=== PATIENT | male | born 1945 | race Caucasian/White ===

== ENCOUNTER 2016-06-07 11:20 | Inpatient (IN) | payer MEDICARE ==
[~2016-06-07] VITALS: Ht 172.7 cm; Wt 126.6 kg
[~2016-06-07 11:20] MED LIST: *CPAPSUP; *GLUCOMETE; /ADVA50050; /MOXI40TA; ACCUPRIL40 PO; ADV500INH INH; ADVAIR200 INHALATION; ADVAIR500 INHALATION; ALBU17IN INH; ALBUTEROL INHALATION; ALDA25TA2; ALDA25TA2 PO; ALDACTON25 PO; ASPI325T PO; CALA180T; CENTTAB PO; CLOP75TA2 PO; COLA100C PO; COMBIN INH; CPAP; CYMB60CA3 PO; CYMBALTA PO; DIAB5TAB; DIABETA PO; DOXY150C PO; DULO1CAP2 PO; DUONSOL; DUONSOL INHALATION; ECOT325T5; F ACCUPRIL PO; FURO40TA2 PO; GLUC500T; GLUCOPH500 PO; GLUCOSE TEST; GLYB5TAB5 PO; HUMULIN 70/30; HUMULIN703 SC; HUMULINN SC; INSULADS SC; INSULANT SC; ISORDIL; ISORDIL PO; ISOS10TA2 PO; ISOS30TAB PO; LANCMIS; LASI40TA; LASI80TA; LASI80TA PO; LASIX40 PO; LIPI20TA; LIPITOR20 PO; LISI-538 PO; LISI-542 PO; LISI40TA; LISI40TAB OR; LISI5TAB PO; LOPR100T; LOPR100T PO; LOPRESS100 PO; LOPRESS50 PO; LOVA20TA2 PO; METF500T PO; METFORM500 PO; METO50TA2 PO; METO5TAB2; MICRONASE PO; NEXIUM40 PO; NITR0.4S; NITR4TASL SL; NITROSTAT4 SL; NOVOINJ SC; NOVOINJ3 SC; OMEGCAP8 PO; OMEP20CA3 PO; OSEL75CA PO; PEPCID20 PO; PRED10TA PO; PRED1TAB32 PO; PRED5TAB PO; PRIL20CA; PRIL20CA9 PO; PRILOSECOT PO; PROV90AE; PROVENTILI PO; RANE1000 PO; REGLAN10 PO; REGLAN5 PO; ROBITUSSIN; SENO8.6T5; SERT-138 PO; SPIR25TA2 PO; STOOL SOFTENER; THERGRAN; TYLE325T5 PO; TYLE650T30 PO; VERA120T2 PO; ZESTRIL PO; ZITH500T PO; [UNRECOGNIZED DRUG - CODE] PO; [UNRECOGNIZED DRUG - CODE] PO; [UNRECOGNIZED DRUG - CODE] PO; [UNRECOGNIZED DRUG - CODE] SUBQ; [UNRECOGNIZED DRUG - OTHER] SC; robitussin PO
--- NOTE | 2016-06-07 12:17 | REP ---
Chest one-view HISTORY: Cough Comparison: 05/31/2016 The lungs are clear. The cardiac silhouette is enlarged. The pulmonary vasculature is normal in appearance. Impression: Cardiomegaly. Signed by Sage Garrett MD 06/07/2016 12:08 P
[2016-06-07 12:31] LABS: BASO % 0.3 % (0.0-1.0); EOS % 0.4 % (0.0-3.0); LARGE UNSTAINED CELL # 0.2 K/mm3 (0.0-0.4); LARGE UNSTAINED CELL % 1.2 % (0.0-4.0); LYMPH # 0.5 K/mm3 (1.5-4.5); LYMPH % 4.3 % (24.0-44.0); MEAN CORPUSCULAR HGB CONC 35.2 g/dl (32.0-36.5); MEAN CORPUSCULAR VOLUME 88.1 fl (80.0-96.0); MONO # 0.7 K/mm3 (0.0-0.8); MONO % 5.7 % (0.0-5.0); NEUTROPHILS # 11.3 K/mm3 (1.8-7.7); NEUTROPHILS % 88.2 % (36.0-66.0); PLATELET COUNT, AUTOMATED 254 k/mm3 (150-450); RED CELL DISTRIBUTION WIDTH 13.2 % (11.5-14.5); WHITE BLOOD COUNT 12.8 K/mm3 (4.0-10.0)
[2016-06-07 12:53] LABS: ANION GAP 15 MEQ/L (8-16); BLOOD UREA NITROGEN 77 MG/DL (7-18); CALCIUM LEVEL 8.7 MG/DL (8.8-10.2); CARBON DIOXIDE LEVEL 28 MEQ/L (21-32); CHLORIDE LEVEL 84 MEQ/L (98-107); CREATININE FOR GFR 2.44 MG/DL (0.70-1.30); GLOMERULAR FILTRATION RATE 27.9 (>42); GLUCOSE, FASTING 202 MG/DL (83-110); POTASSIUM SERUM 3.2 MEQ/L (3.5-5.1); SODIUM LEVEL 127 MEQ/L (136-145)
[2016-06-07] MEDS ORDERED: ONDANSETRON 4MG/2ML VIAL (J2405) As Ordered ONE (13:38)
--- NOTE | 2016-06-07 14:32 | REP ---
CT STUDY OF THE CHEST WITHOUT CONTRAST: HISTORY: Chest pain. Comparison is made with chest CT study done with contrast on April 16, 2016. CT FINDINGS: Thoracic aorta is fairly heavily calcified as are the coronary arteries and the great vessel origins. No aneurysm or mural thickening is seen in the aorta. There is no evidence of pleural effusion. There is a small quantity of pericardial fluid. This is slightly larger than on the April 16, 2016 study. No hilar or mediastinal mass or adenopathy is observed. Lung window settings show an area of discoid atelectasis in the lingula and an area of minimal linear fibrosis in the right middle lobe. There are some interstitial changes in the upper lobes bilaterally mild in degree. There is a calcified granuloma in the left upper lobe. There are several tiny scattered granulomatous calcifications in the right lung. There is a small 3 mm area of pleural thickening at the major fissure adjacent to the posterior mediastinum on the right unchanged. No significant pulmonary nodule is appreciated. No tracheobronchial lesion is seen. There are degenerative changes diffusely in the thoracic spine. No bony destructive lesion is appreciated. IMPRESSION: Extensive vascular calcification. Linear fibrosis and granulomatous calcifications. Discoid atelectasis in the lingula. Some chronically increased interstitial markings. No other acute abnormality. Signed by Guevara Presley MD 06/07/2016 06:37 P
[2016-06-07] MEDS ORDERED: METO12TA PO (16:00)
[2016-06-07] MEDS ORDERED: ATOR1TAB18 PO (16:00)
[2016-06-07] MEDS ORDERED: INSULANT SC (16:00)
[2016-06-07] MEDS ORDERED: LISI-542 PO (16:00)
[2016-06-07] MEDS ORDERED: SPIR25TA2 PO (16:00)
[2016-06-07] MEDS ORDERED: METO25TA PO (16:00)
[2016-06-07] MEDS ORDERED: PRED10TA PO (16:00)
[2016-06-07] MEDS ORDERED: DOXY100T PO (16:04)
[2016-06-07] MEDS ORDERED: POTASSIUM CHLORIDE 10 MEQ SR TABLET PO ONE (16:15)
[2016-06-07] MEDS ORDERED: NITROGLYCERIN 0.4 MG SUBL TABLET SL PRN (16:15)
[2016-06-07] MEDS ORDERED: ALBUTEROL 90 MCG/ACT 8GM HFA INHALER INH PRN (16:15)
[2016-06-07] MEDS ORDERED: GLUCOSE 4 GM CHEW TABLET PO PRN (16:30)
[2016-06-07] MEDS ORDERED: DEXTROSE 50% 50 ML SYRINGE IV PRN (16:30)
[2016-06-07] MEDS ORDERED: GLUCAGON FOR INJ 1 MG VIAL (J1610) SC PRN (16:30)
[2016-06-07] MEDS ORDERED: NS 1,000 ML IV SCH (17:00)
--- NOTE | 2016-06-07 17:13 | HPE ---
DATE OF ADMISSION: 06/07/2016 PRIMARY CARE PHYSICIAN: Dr. Riley RECRUITMENT OFFICER: Dr. Crespo PAYROLL TECHNICIAN: Dr. Novak CHIEF COMPLAINT: Weakness, nausea. HISTORY OF PRESENT ILLNESS: The patient is a 71-year-old man with known fairly advanced chronic obstructive pulmonary disease (COPD) as well as diastolic congestive heart failure. Patient has been following with Dr. Crespo regarding his COPD fairly frequently over the last 1-2 months. The patient has had fairly consistent symptoms. When he was last seen on Sunday, Dr. Crespo at home at increased his continuous 2 liters of oxygen to 4 liters of oxygen. She also provided him with a steroid taper and doxycycline, which was his second course of treatment for COPD exacerbation in the last 1-2 months. The patient was also seen by Dr. Novak on Sunday, and reported at that time his Lasix was doubled from 40 twice a day to 80 twice a day. In addition, he was also started on metolazone 2.5 mg every other day. Shortly after starting these medications on Sunday, he noticed massive urine output, urinating 35 times a day. He tells me that he checks his daily weights, and he has lost approximately 20 pounds over the last 4-5 days. Also had associated nausea. No vomiting but weakness and poor oral intake, which prompted him to present to the emergency room today. The patient denies chest pain, lightheadedness, dizziness, worsening of any of his baseline symptoms otherwise. PAST MEDICAL HISTORY: 1. Diastolic congestive heart failure with the most recent echo we have on file from 2014. 2. Coronary artery disease. 3. Insulin-dependent diabetes. 4. Hypertension. 5. COPD. 6. Dyslipidemia. 7. Chronic kidney disease. 8. Obstructive sleep apnea. 9. Gastroesophageal reflux disease. 10. Hypertension. 11. Depression. PAST SURGICAL HISTORY: 1. Cardiac stents. 2. Cholecystectomy. SOCIAL HISTORY: The patient is a former smoker. Denies any alcohol or illicit drug use. He lives with his , and he is accompanied b his daughter. ALLERGIES: AUGMENTIN CEFTIN, LEVOFLOXACIN, PENICILLINS. HOME MEDICATIONS: - Lasix 80 mg by mouth twice a day - NovoLog Flexpen with meals - sliding scale - lisinopril 5 mg daily - metolazone 2.5 mg every 2 days - Ventolin HFA two puffs inhaled every 4 hours as needed for shortness of breath - aspirin 325 mg daily - atorvastatin 80 mg daily - Plavix 75 mg daily - doxycycline 100 mg by mouth twice a day - duloxetine 90 mg daily - Lantus 45 units twice a day - isosorbide dinitrate 60 mg twice a day - metoprolol tartrate 25 mg by mouth twice a day - Nitrostat 0.4 mg sublingually every 5 minutes as needed for chest pain - omeprazole 20 mg daily - prednisone taper as per Dr. Crespo - Ranexa 1000 mg twice a day - Advair Diskus 500/50 one puff inhaled twice a day - Aldactone 25 mg every other day REVIEW OF SYSTEMS: Negative other than in history of present illness (HPI). FAMILY HISTORY: Noncontributory. PHYSICAL EXAMINATION: Blood pressure 117/76, pulse 68, respiratory rate 20, temperature 96.8, oxygen saturation 97% on 2 liters nasal cannula. GENERAL: He is a elderly, obese man, sitting up in a stretcher. He does not appear to be in any acute distress. He is accompanied by his and his daughter. HEENT: Cranial nerves II-XII are grossly intact. He has some mildly dry mucous membranes. No elevation in central venous pressure. CARDIOVASCULAR: S1, S2, regular rate and rhythm. RESPIRATORY: Surprisingly clear without any significant wheezing. Prolonged expiratory phase. ABDOMEN: Grossly obese. EXTREMITIES: No clubbing, cyanosis, and edema whatsoever. He is awake, alert, oriented times three. LABORATORY STUDIES: WBC 12.8, hemoglobin 17.7, hematocrit 50.4, platelet count 254. Chemistry panel: Sodium 127, potassium 3.2, chloride 84, bicarbonate 28, BUN 77, creatinine 2.4. One set of cardiac enzymes is negative. Microbiology: Blood cultures have been drawn and are pending. IMAGING: The patient did have a CT scan of the chest, which revealed extensive vascular calcifications, linear fibrosis, and granulomatous calcifications. Discoid atelectasis in the lingula. Some chronically increased interstitial marking. No other acute abnormalities. ASSESSMENT AND PLAN: This is a 71-year-old man presenting with lethargy, poor oral intake, and significant diuresis. 1. Hyponatremia and acute kidney injury, likely secondary to over-diuresis. The patient was restarted on metolazone. His diuretic dose was doubled. He reports 20-pound weight loss over the last several days and massive diuresis in the same period. At this time we will hold all diuretics as well as his angiotensin-converting enzyme (LAMIN) inhibitor. We will continue his Aldactone and provide him with very gentle intravenous (IV) fluids of normal saline at 50 mL an hour. Repeat his blood work in the morning. I have spoken with Dr. Crespo, who had referred the patient to the emergency room (ER), made her aware of this plan, and she is in agreement after our discussion. The patient appears to have hypovolemic hyponatremia and also hyperchloridemia as well as hypokalemia, which we will replete orally. 2. Chronic obstructive pulmonary disease (COPD). The patient appears to be relatively close to his baseline, as he has been for the last 1-2 months[address] continue with Dr. Crespo' plan with his prednisone taper, doxycycline, and his home inhalers. 3. Coronary artery disease and congestive heart failure (CHF). The patient follows normally with Dr. Novak. For the time being, we are holding his diuretics. We are continuing Aldactone,. Lipitor, Plavix. Isosorbide mononitrate, metoprolol, Ranexa, Nitrostat, and gently hydrating him. He appears to be hypovolemic. Please note that this patient is on aspirin. 4. Obstructive sleep apnea. Continue with continuous positive airway pressure (CPAP). 5. Insulin-dependent diabetes. Place him on sliding-scale insulin. Continue with his home dosing of Lantus. Consistent-carbohydrate diet. 6. Hypertension. Continue with antihypertensives. As outlined above, we are holding his lisinopril and diuretics. 7. Deep vein thrombosis (DVT) prophylaxis. Patient will be on heparin. 8. Dyslipidemia. The patient will continue on his statin. We will trend his cardiac enzymes, monitoring him in the progressive care unit. DISPOSITION: The patient is admitted to the progressive care unit to Dr. Evans's service. Physical therapy evaluation will be placed for home safety. Will continue to monitor his acute kidney injury and hyponatremia, which I suspect will improve with cessation of his diuretics and gentle fluids.
[2016-06-07 20:15] VITALS: BP 116/67
--- NOTE | 2016-06-07 20:18 | EDDOCDS ---
Nurse's Notes [facility] Name: Artemio Alberto Age: 71 yrs Sex: Male : 1945 Arrival Date: 06/07/2016 Time: 11:20 Bed Admit Hold Private MD: Diagnosis: Shortness of breath;Hypo-osmolality and hyponatremia;Injury of kidney Presentation: 06/07 11:29 Presenting complaint: Patient states: "Well it's been going on since two weeks before mb9 [place]. I just haven't felt well. Today I couldn't get out of bed. I was weak and dizzy and nauseous.". pt also reports some chest discomfort at the time of the incident which has subsided. EMS gave 4 mg of IV zofran en route. Suicide/Homicide risk assessment- the patient denies having any suicidal and/or homicidal ideations and does not present with any other emotional, behavioral or mental health complaints. Status: Patient is not a management services technician or dependent. Transition of care: patient was not received from another setting of care. Care prior to arrival: See EMS report. 11:29 Acuity: LYNN Level 2 mb9 11:29 Method Of Arrival: Ambulance mb9 11:42 Adult Sepsis Screening: The patient does not have new or worsening altered mentation. mb9 Patient's respiratory rate is less than 22. Systolic blood pressure is greater than 100. Patient has a qSOFA score of 0- Negative Sepsis Screen. Triage Assessment: 11:38 General: Appears in no apparent distress, Behavior is appropriate for age, cooperative. mb9 General: pt reports a weight los of 21 lbs from SundayJune 02 to SundayJune 05. Pt reports that his PHCP instructed him to, "double up my lasix on Sunday". . Pain: Denies pain. Neurological: Level of Consciousness is awake, alert, Oriented to person, place, time, Speech is normal, Facial symmetry appears normal, Pupils are PERRLA. Cardiovascular: Heart tones S1 S2 present Rhythm is sinus rhythm. Respiratory: Airway is patent Respiratory effort is even, unlabored, Breath sounds are clear bilaterally. Breath sounds are diminished bilaterally. Historical: - Allergies: Augmentin; Ceftin; Levofloxacin; PENICILLINS; - Home Meds: 1. 2L NC 2. Ranexa 1,000 mg oral Tb12 1 tab 2 times per day 3. Plavix 75 mg Oral tab 1 tab once daily 4. Novolog sliding scale Sub-Q 4 times a day 5. DuoNeb 0.5 mg-3 mg(2.5 mg base)/3 mL Inhl nebu 6. Ventolin HFA 90 mcg/actuation Nebulizer HFAA 2 puffs as needed 7. atorvastatin 80 mg oral tab 1 tab once daily 8. duloxetine 90 mg Oral cpDR 1 cap once daily 9. lisinopril 5 mg Oral tab 1 tab once daily 10. Advair Diskus 500-50 mcg/dose Inhl dsdv 1 puff 2 times per day 11. Lantus 50 units Sub-Q twice a day 12. isosorbide dinitrate 30 mg Oral tab 2 tabs 2 times per day 13. Prilosec 20 mg Oral cpDR 1 cap 2 times per day 14. NitroQuick 0.4 mg SL subl 1 tab as needed 15. cpap 16. Lasix 40 mg Oral tab 2 tabs 2 times per day 17. spironolactone 25 mg Oral tab 1 tab once daily 18. metoprolol tartrate 25 mg Oral tab 1 tab 2 times per day 19. metolazone 2.5 mg oral tab 1 tab take one tab every other day 20. Prednisolone 10 mg Oral 3 tabs once daily taper dose 21. doxycycline hyclate 100 mg Oral tab 1 tab every 12 hours - PMHx: COPD; Depression; Diabetes - IDDM: uncontrolled; GERD; Hypercholesterolemia; Hypertension; - PSHx: Cardiac stents; Cholecystectomy; - Social history: Smoking status: Patient states former smoker of tobacco. No barriers to communication noted, The patient speaks fluent Albanian. - Family history: Not pertinent. - : The pt / caregiver states he / she is on anticoagulants: Plavix. Home medication list is obtained from patients' pharmacy. - Exposure Risk Screening:: None identified. Screenin:59 Screening information is obtained from the patient. Fall risk: No risks identified. dsf Assistance ADL's: requires no assistance with activities of daily living. Abuse/DV Screen: The patient / caregiver reports he/she is: not in a situation that causes fear, pain or injury. Nutritional screening: No deficits noted. Advance Directives: Currently, there is no health care proxy. home support is adequate. Assessment: 11:50 General: Appears in no apparent distress, Behavior is appropriate for age, cooperative. dsf Pain: Denies pain. Neurological: Level of Consciousness is awake, alert, Oriented to person, place, time. Cardiovascular: Capillary refill < 3 seconds Heart tones S1 S2 present Rhythm is sinus rhythm No ectopy. Respiratory: Airway is patent Respiratory effort is even, unlabored, Respiratory pattern is regular, symmetrical, Breath sounds are diminished in left posterior lower lobe and right posterior lower lobe Reports shortness of breath on exertion since after [place]. GI: Abdomen is obese, Bowel sounds present X 4 quads. Abd is soft and non tender X 4 quads. Reports nausea. Derm: Skin is clammy, Skin is normal, Skin temperature is cool. 12:50 Adult Sepsis Screening: The patient does not have new or worsening altered mentation. dsf Patient's respiratory rate is less than 22. Systolic blood pressure is greater than 100. Patient has a qSOFA score of 0- Negative Sepsis Screen. General: Appears in no apparent distress, comfortable, Behavior is appropriate for age, cooperative. Neurological: Level of Consciousness is awake, alert. Cardiovascular: Capillary refill < 3 seconds Rhythm is sinus rhythm No ectopy. Respiratory: Airway is patent Respiratory effort is even, unlabored, Respiratory pattern is regular, symmetrical. Derm: Skin is clammy, Skin is normal, Skin temperature is cool. 13:38 General: pt c/o nausea pt medicated with zofran. SR on monitor. airway patient, dsf respirations easy and unlabored. skin normal, clammy and cool. pt refuses a blanket at this time. will continue to monitor . 14:38 Adult Sepsis Screening: The patient does not have new or worsening altered mentation. dsf Patient's respiratory rate is less than 22. Systolic blood pressure is greater than 100. Patient has a qSOFA score of 0- Negative Sepsis Screen. General: Appears in no apparent distress, comfortable, Behavior is appropriate for age, cooperative. Pain: Denies pain. Neurological: Level of Consciousness is awake, alert, Oriented to person, place, time. Cardiovascular: Capillary refill < 3 seconds Heart tones S1 S2 present Rhythm is sinus rhythm No ectopy. Respiratory: Airway is patent Respiratory effort is even, unlabored, Respiratory pattern is regular, symmetrical, Breath sounds are diminished in left posterior lower lobe and right posterior lower lobe. GI: Abdomen is obese, Bowel sounds present X 4 quads. Abd is soft and non tender X 4 quads. Denies nausea. Derm: Skin is clammy, Skin is normal, Skin temperature is cool. 15:38 General: pt sitting up eating a lunch tray. family at bedside. SR on monitor. dsf Respirations easy and unlabored. Will continue to monitor. Pt denies nausea or pain at this time . 16:26 Adult Sepsis Screening: The patient does not have new or worsening altered mentation. dsf Patient's respiratory rate is less than 22. Systolic blood pressure is greater than 100. Patient has a qSOFA score of 0- Negative Sepsis Screen. General: Appears in no apparent distress, comfortable, Behavior is appropriate for age, cooperative. Pain: Denies pain. Neurological: Level of Consciousness is awake, alert. Cardiovascular: Capillary refill < 3 seconds Rhythm is sinus rhythm No ectopy. Respiratory: Airway is patent Respiratory effort is even, unlabored, Respiratory pattern is regular, symmetrical. GI: Abdomen is obese, Denies nausea. Derm: Skin is clammy, Skin is normal, Skin temperature is cool. 16:40 GI: Stools are reported to be loose. dsf 17:34 General: Appears in no apparent distress, comfortable, Behavior is appropriate for age, dsf cooperative. Pain: Denies pain. Neurological: Level of Consciousness is awake, alert, Oriented to person, place, time. Cardiovascular: Capillary refill < 3 seconds Rhythm is sinus rhythm No ectopy. Respiratory: Airway is patent Respiratory effort is even, unlabored, Respiratory pattern is regular, symmetrical. GI: Abdomen is obese. Derm: Skin is dry, Skin is normal, Skin temperature is cool. 18:34 General: Appears in no apparent distress. Neurological: Level of Consciousness is dsf awake, alert. Cardiovascular: No deficits noted. Respiratory: Airway is patent Respiratory effort is even, unlabored, Respiratory pattern is regular, symmetrical. Derm: Skin is dry, Skin is normal, Skin temperature is cool. 19:11 General: Appears in no apparent distress, comfortable, Behavior is appropriate for age, af2 cooperative, Assumed care of pt at this time. Pt and family updated regarding plan of care at this time. Pt offers no complaints at this time. Will continue to monitor. . Neurological: Level of Consciousness is awake, alert, Oriented to person, place, time. Cardiovascular: Rhythm is sinus rhythm No ectopy. Respiratory: Airway is patent Respiratory effort is even, unlabored. Derm: Skin is normal. 20:00 General: Appears in no apparent distress, comfortable, Behavior is appropriate for age, af2 cooperative. Neurological: Level of Consciousness is awake, alert, Oriented to person, place, time. Respiratory: Airway is patent Respiratory effort is even, unlabored. Derm: Skin is normal. Vital Signs: 11:28 BP 114 / 76 (auto/); dsf 11:29 Pulse Ox 94% ; dsf 11:34 BP 114 / 76; Pulse 71; Resp 20; Temp 96.8(O); Pulse Ox 95% on R/A; Weight 122.02 kg kc3 (R); Height 5 ft. 8 in. (172.72 cm); 11:44 Pulse 72 MON; Pulse Ox 93% ; dsf 11:46 BP 114 / 59 (auto/); dsf 12:35 Pulse 66 MON; Pulse Ox 94% ; dsf 12:40 BP 106 / 58 (auto/); dsf 12:40 Pulse Ox 94% ; dsf 12:54 Pulse 66 MON; Pulse Ox 92% ; dsf 12:55 BP 94 / 54 (auto/); dsf 13:10 BP 96 / 56 (auto/); dsf 13:16 Pulse 68 MON; Pulse Ox 90% ; dsf 13:36 BP 98 / 54 (auto/); dsf 13:38 Pulse 68 MON; Pulse Ox 96% ; dsf 13:40 BP 109 / 57 (auto/); dsf 13:40 Pulse 70 MON; dsf 13:55 BP 98 / 55 (auto/); dsf 13:55 Pulse 70 MON; Pulse Ox 94% ; dsf 14:10 BP 114 / 72 (auto/); dsf 14:10 Pulse 68 MON; Pulse Ox 95% ; dsf 14:23 Pulse 68 MON; Pulse Ox 93% ; dsf 14:25 BP 117 / 76 (auto/); dsf 14:40 BP 93 / 60 (auto/); dsf 14:40 Pulse 68 MON; Pulse Ox 97% ; dsf 16:23 BP 117 / 67 (auto/); dsf 16:24 Pulse 68 MON; Resp 20; Temp 95.2(T); Pulse Ox 97% 2 lpm ; Pain 0/10; dsf 17:15 BP 126 / 65 LA Sitting (auto/lg); Pulse 68; Resp 20; Temp 96.5; Pulse Ox 95% on R/A; bnb Pain 0/10; 18:23 BP 128 / 87 (auto/); af2 18:23 Pulse 72 MON; Resp 18 S; Pulse Ox 96% on 2 lpm NC; af2 18:38 BP 130 / 74 (auto/); af2 18:38 Pulse 66 MON; Pulse Ox 95% ; af2 18:53 BP 137 / 75 (auto/); af2 18:53 Pulse 68 MON; Resp 18 S; Pulse Ox 92% on 2 lpm NC; af2 19:23 BP 114 / 66 (auto/); af2 19:23 Pulse 68 MON; Resp 18 S; Pulse Ox 96% on 2 lpm NC; af2 19:38 BP 125 / 74 (auto/); af2 19:38 Pulse 68 MON; Resp 18 S; Pulse Ox 92% on 2 lpm NC; af2 19:53 BP 126 / 67 (auto/); af2 19:54 Pulse 72 MON; Resp 18 S; Temp 96.9(O); Pulse Ox 96% on 2 lpm NC; af2 11:34 Body Mass Index 40.90 (122.02 kg, 172.72 cm) kc3 Vitals: 11:33 Log In Time N/A - ambulance arrival. mb9 ED Course: 11:21 Patient visited by Edmundo Lu PCA. jrd 11:[address] [facility] jrd 11:21 Patient moved to [facility] 11:21 The patient / caregiver is instructed regarding the plan of care and ED course. Patient dsf has correct armband on for positive identification. Placed in gown. Bed in low position. Call light in reach. Side rails up X2. threat monitoring analyst on. Pulse ox on. NIBP on. 11:27 Luisa Biswas MD is Attending Physician. fg 11:27 Patient visited by Luisa Biswas MD. fg 11:31 Triage Initiated mb9 11:48 Patient visited by Ena Tatum PCA. rs6 11:48 EKG done. (by ED staff). Reviewed by Luisa Biswas MD. rs6 11:50 Maintain field IV. Dressing intact. Good blood return noted. Site clean & dry. Gauge & dsf site: #20 gauge left wrist . O2 via nasal cannula \\T\\ 2L/min. 11:52 Patient visited by Bianka Rocha RN. dsf 12:20 -Blood Culture Sent. dsf 12:20 B-Type Natiuretic Peptide Sent. dsf 12:20 Basic Metabolic Profile Sent. dsf 12:20 CBC with Diff Sent. dsf 12:20 Cardiac Injury Profile Sent. dsf 12:20 Troponin Sent. dsf 12:43 Chest, 1 View Returned. EDMS 13:02 Patient visited by Bianka Rocha RN. dsf 13:19 [facility] Payment Agreement was scanned into [employer] and attached to record. lg 13:44 Patient visited by Bianka Rocha RN. dsf 14:58 Patient visited by Bianka Rocha RN. dsf 14:59 Maria Eugenia Dolan is Hospitalizing Provider. fg 15:21 CT Chest without contrast Returned. EDMS 15:35 Patient visited by Luz Amador RN. lmb 15:43 Patient visited by Bianka Rocha RN. dsf 16:27 Patient visited by Bianka Rocha RN. dsf 17:16 Patient visited by Ceci Escobedo PCA. bnb 17:25 No procedures done that require assistance. dsf 17:35 Patient visited by Bianka Rocha RN. dsf 18:03 [facility] 18:48 Patient visited by Bianka Rocha RN. dsf 19:01 Dariana ChanRN is Primary Nurse. af2 19:15 Patient visited by Dariana Chan RN. af2 19:29 Patient visited by Dariana Chan RN. af2 20:02 Patient visited by Dariana Chan RN. af2 20:02 Patient visited by Dariana Chan RN. af2 20:08 Patient visited by Dariana Chan RN. af2 Administered Medications: 13:43 Drug: Ondansetron 4 mg [ondansetron HCl 2 mg/mL intravenous solution (2 mL)] Route: dsf IVP; Site: left wrist; 15:04 Drug: NS 0.9% 500 ml [sodium chloride 0.9 % injection solution] Route: IV; Rate: bolus; dsf Site: left wrist; 16:27 Follow up: IV Status: Completed infusion; IV Intake: 500ml dsf Point of Care Testing: Blood Glucose: 11:42 Blood Glucose: 208 mg/dL; mb9 Ranges: Intake: 16:27 IV: 500.00ml; Total: 500.00ml. dsf Output: 16:40 Stool: 1 (Loose Stool) ; Total: 0.00ml. dsf Order Results: Lab Order: B-Type Natiuretic Peptide; SPEC'M 06/07/16 12:19 Test: BRAIN NATRIURETIC PEPTIDE; Value: 17.6; Range: <100; Units: PG/ML; Status: F Lab Order: Basic Metabolic Profile; SPEC'M 06/07/16 12:19 Test: GLUCOSE, FASTING; Value: 202; Range: 83-110; Abnormal: Above high normal; Units: MG/DL; Status: F Test: BLOOD UREA NITROGEN; Value: 77; Range: 7-18; Abnormal: Above high normal; Units: MG/DL; Status: F Test: CREATININE FOR GFR; Value: 2.44; Range: 0.70-1.30; Abnormal: Above high normal; Units: MG/DL; Status: F Test: GLOMERULAR FILTRATION RATE; Value: 27.9; Range: >42; Abnormal: Below low normal; Status: F Test: SODIUM LEVEL; Value: 127; Range: 136-145; Abnormal: Below low normal; Units: MEQ/L; Status: F Test: POTASSIUM SERUM; Value: 3.2; Range: 3.5-5.1; Abnormal: Below low normal; Units: MEQ/L; Status: F Test: CHLORIDE LEVEL; Value: 84; Range: 98-107; Abnormal: Below low normal; Units: MEQ/L; Status: F Test: CARBON DIOXIDE LEVEL; Value: 28; Range: 21-32; Units: MEQ/L; Status: F Test: ANION GAP; Value: 15; Range: 8-16; Units: MEQ/L; Status: F Test: CALCIUM LEVEL; Value: 8.7; Range: 8.8-10.2; Abnormal: Below low normal; Units: MG/DL; Status: F Test Note: ; Units are mL/min/1.73 m2 Chronic Kidney Disease Staging per NKF: Stage I & II GFR >=60 Normal to Mildly Decreased Stage III GFR 30-59 Moderately Decreased Stage IV GFR 15-29 Severely Decreased Stage V GFR <15 Very Little GFR Left ESRD GFR <15 on AUTOMATIC TOE LASTER Lab Order: CBC with Diff; SPEC'M 06/07/16 12:19 Test: WHITE BLOOD COUNT; Value: 12.8; Range: 4.0-10.0; Abnormal: Above high normal; Units: K/mm3; Status: F Test: RED BLOOD COUNT; Value: 5.72; Range: 4.30-6.10; Units: M/mm3; Status: F Test: HEMOGLOBIN; Value: 17.7; Range: 14.0-18.0; Units: g/dl; Status: F Test: HEMATOCRIT; Value: 50.4; Range: 42.0-52.0; Units: %; Status: F Test: MEAN CORPUSCULAR VOLUME; Value: 88.1; Range: 80.0-96.0; Units: fl; Status: F Test: MEAN CORPUSCULAR HEMOGLOBIN; Value: 31.0; Range: 27.0-33.0; Units: pg; Status: F Test: MEAN CORPUSCULAR HGB CONC; Value: 35.2; Range: 32.0-36.5; Units: g/dl; Status: F Test: RED CELL DISTRIBUTION WIDTH; Value: 13.2; Range: 11.5-14.5; Units: %; Status: F Test: PLATELET COUNT, AUTOMATED; Value: 254; Range: 150-450; Units: k/mm3; Status: F Test: NEUTROPHILS %; Value: 88.2; Range: 36.0-66.0; Abnormal: Above high normal; Units: %; Status: F Test: LYMPH %; Value: 4.3; Range: 24.0-44.0; Abnormal: Below low normal; Units: %; Status: F Test: MONO %; Value: 5.7; Range: 0.0-5.0; Abnormal: Above high normal; Units: %; Status: F Test: EOS %; Value: 0.4; Range: 0.0-3.0; Units: %; Status: F Test: BASO %; Value: 0.3; Range: 0.0-1.0; Units: %; Status: F Test: LARGE UNSTAINED CELL %; Value: 1.2; Range: 0.0-4.0; Units: %; Status: F Test: NEUTROPHILS #; Value: 11.3; Range: 1.8-7.7; Abnormal: Above high normal; Units: K/mm3; Status: F Test: LYMPH #; Value: 0.5; Range: 1.5-4.5; Abnormal: Below low normal; Units: K/mm3; Status: F Test: MONO #; Value: 0.7; Range: 0.0-0.8; Units: K/mm3; Status: F Test: EOS #; Value: 0.0; Range: 0.0-0.50; Units: K/mm3; Status: F Test: BASO #; Value: 0.0; Range: 0.0-0.2; Units: K/mm3; Status: F Test: LARGE UNSTAINED CELL #; Value: 0.2; Range: 0.0-0.4; Units: K/mm3; Status: F Lab Order: Cardiac Injury Profile; SPEC'M 06/07/16 12:19 Test: CPK CREATINE PHOSPHOKINASE; Value: 66; Range: 39-308; Units: U/L; Status: F Test: CK-MB VALUE MASS; Value: 2.0; Range: 0.0-3.6; Units: NG/ML; Status: F Test: MB/CK RELATIVE INDEX; Value: 3.03; Range: < OR =4; Status: F Test Note: ; DIAGNOSIS CRITERIA MMB ng/ml Relative Index (RI) NON-AMI < or = 5 N/A HUITRON ZONE > 5 < or = 4 AMI > 5 > 4 Lab Order: Troponin; SPEC'M 06/07/16 12:19 Test: TROPONIN I; Value: < 0.02; Range: < 0.10; Units: NG/ML; Status: F Test Note: ; Troponin I Reference Interval for Heavy LOCI: 99th Percentile= 0.00-0.045 ng/ml Risk Stratification: <= 0.10 ng/ml Decreased Risk for Adverse Clinical Events. 0.10-1.50 ng/ml Increased Risk for Adverse Clinical Events. Evaluation of additional criterion and/or repeat testing in 2-6 hours is suggested to rule out myocardial damage. >= 1.50 ng/ml Indicative of Myocardial Injury. Lab Order: TROPONIN; SPEC'M 06/07/16 16:55 Test: TROPONIN I; Value: < 0.02; Range: < 0.10; Units: NG/ML; Status: F Test Note: ; Troponin I Reference Interval for [employer] [place] LOCI: 99th Percentile= 0.00-0.045 ng/ml Risk Stratification: <= 0.10 ng/ml Decreased Risk for Adverse Clinical Events. 0.10-1.50 ng/ml Increased Risk for Adverse Clinical Events. Evaluation of additional criterion and/or repeat testing in 2-6 hours is suggested to rule out myocardial damage. >= 1.50 ng/ml Indicative of Myocardial Injury. Radiology Order: Chest, 1 View Test: Chest, 1 View REASON FOR EXAMINATION: Cough; Chest one-view; ; HISTORY: Cough; ; Comparison: 05/31/2016; ; The lungs are clear. The cardiac silhouette is enlarged. The pulmonary; vasculature is normal in appearance.; ; Impression: Cardiomegaly.; ; ; Signed by; Sage Garrett MD 06/07/2016 12:08 P; Radiology Order: CT Chest without contrast Test: CT Chest without contrast REASON FOR EXAMINATION: Chest Pain; CT STUDY OF THE CHEST WITHOUT CONTRAST:; ; HISTORY: Chest pain.; ; Comparison is made with chest CT study done with contrast on April 16, 2016.; ; CT FINDINGS: Thoracic aorta is fairly heavily calcified as are the coronary; arteries and the great vessel origins. No aneurysm or mural thickening is seen; in the aorta. There is no evidence of pleural effusion. There is a small; quantity of pericardial fluid. This is slightly larger than on the April 162015 study. No hilar or mediastinal mass or adenopathy is observed.; ; Lung window settings show an area of discoid atelectasis in the lingula and an; area of minimal linear fibrosis in the right middle lobe. There are some; interstitial changes in the upper lobes bilaterally mild in degree. There is a; calcified granuloma in the left upper lobe. There are several tiny scattered; granulomatous calcifications in the right lung. There is a small 3 mm area of; pleural thickening at the major fissure adjacent to the posterior mediastinum on; the right unchanged. No significant pulmonary nodule is appreciated. No; tracheobronchial lesion is seen. There are degenerative changes diffusely in the; thoracic spine. No bony destructive lesion is appreciated.; ; IMPRESSION: Extensive vascular calcification. Linear fibrosis and granulomatous; calcifications. Discoid atelectasis in the lingula. Some chronically increased; interstitial markings. No other acute abnormality.; ; ; Signed by; Guevara Presley MD 06/07/2016 06:37 P; Outcome: 14:59 Decision to Hospitalize by Provider. fg 17:26 No special radiology studies were completed. dsf 19:13 Discharge Assessment: Patient awake, alert and oriented x 3. No cognitive and/or af2 functional deficits noted. Patient verbalized understanding of disposition instructions. patient administered narcotics - no. The following High Risk Discharge criteria are identified: None. Admitted to PCU accompanied by nurse, accompanied by tech, via stretcher, on monitor, with chart. Condition: stable. Property :Personal belongings accompany Pt. 19:28 Admission hand-off: Other: This keno writer/runner called PCU to see if they are ready to accept af2 pt. Informed by that bed is dirty. . 20:17 Patient left the ED. cz Signatures: Dispatcher [employer] EDMS Denae Barnes RN TAVO kpHarshal Buckner RN RN Joyce Lentz, Reg Luz Lazo lgRN RN Bianka De La Cruz,RN RN f Edmundo Lu, SENIOR ASP NET DEVELOPER SENIOR ASP NET DEVELOPER jrd Jame Aguayo,RN RN mb9 Ena Tatum, SENIOR ASP NET DEVELOPER SENIOR ASP NET DEVELOPER rs6 Dariana Chan,RN RN af2 Luisa Biswas MD MD fg Crane, Kelsi,TAVO RN kc3 Ceci Escobedo, SENIOR ASP NET DEVELOPER SENIOR ASP NET DEVELOPER bnb Corrections: (The following items were deleted from the chart) 19:00 13:40 Pulse 70bpm; Monitor; Pulse Ox 75%; dsf dsf 20:06 19:54 Pulse 72bpm; MonitorResp 18bpm; Spontaneous; Pulse Ox 96% 2 lpm Nasal Cannula; [id number] MTDD
--- NOTE | 2016-06-07 20:18 | EDDOCDS ---
Physician Documentation [facility] Name: Artemio Alberto Age: 71 yrs Sex: Male : 1945 Arrival Date: 06/07/2016 Time: 11:20 Bed Admit Hold Private MD: Disposition: 06/07/16 14:59 Hospitalization ordered by Maria Eugenia Dolan for Inpatient Admission. Preliminary diagnosis are Shortness of breath, Hypo-osmolality and hyponatremia, Injury of kidney. - Bed requested for PCU. - Status is Inpatient Admission. cz - Condition is Stable. - Problem is new. - Symptoms have improved. Historical: - Allergies: Augmentin; Ceftin; Levofloxacin; PENICILLINS; - Home Meds: 1. 2L NC 2. Ranexa 1,000 mg oral Tb12 1 tab 2 times per day 3. Plavix 75 mg Oral tab 1 tab once daily 4. Novolog sliding scale Sub-Q 4 times a day 5. DuoNeb 0.5 mg-3 mg(2.5 mg base)/3 mL Inhl nebu 6. Ventolin HFA 90 mcg/actuation Nebulizer HFAA 2 puffs as needed 7. atorvastatin 80 mg oral tab 1 tab once daily 8. duloxetine 90 mg Oral cpDR 1 cap once daily 9. lisinopril 5 mg Oral tab 1 tab once daily 10. Advair Diskus 500-50 mcg/dose Inhl dsdv 1 puff 2 times per day 11. Lantus 50 units Sub-Q twice a day 12. isosorbide dinitrate 30 mg Oral tab 2 tabs 2 times per day 13. Prilosec 20 mg Oral cpDR 1 cap 2 times per day 14. NitroQuick 0.4 mg SL subl 1 tab as needed 15. cpap 16. Lasix 40 mg Oral tab 2 tabs 2 times per day 17. spironolactone 25 mg Oral tab 1 tab once daily 18. metoprolol tartrate 25 mg Oral tab 1 tab 2 times per day 19. metolazone 2.5 mg oral tab 1 tab take one tab every other day 20. Prednisolone 10 mg Oral 3 tabs once daily taper dose 21. doxycycline hyclate 100 mg Oral tab 1 tab every 12 hours - PMHx: COPD; Depression; Diabetes - IDDM: uncontrolled; GERD; Hypercholesterolemia; Hypertension; - PSHx: Cardiac stents; Cholecystectomy; - Social history: Smoking status: Patient states former smoker of tobacco. No barriers to communication noted, The patient speaks fluent Mauritian. - Family history: Not pertinent. - : The pt / caregiver states he / she is on anticoagulants: Plavix. Home medication list is obtained from patients' pharmacy. - Exposure Risk Screening:: None identified. Vital Signs: 06/07 11:28 BP 114 / 76 (auto/); dsf 11:29 Pulse Ox 94% ; dsf 11:34 BP 114 / 76; Pulse 71; Resp 20; Temp 96.8(O); Pulse Ox 95% on R/A; Weight 122.02 kg / kc3 269.01 lbs (R); Height 5 ft. 8 in. (172.72 cm); 11:44 Pulse 72 MON; Pulse Ox 93% ; dsf 11:46 BP 114 / 59 (auto/); dsf 12:35 Pulse 66 MON; Pulse Ox 94% ; dsf 12:40 BP 106 / 58 (auto/); dsf 12:40 Pulse Ox 94% ; dsf 12:54 Pulse 66 MON; Pulse Ox 92% ; dsf 12:55 BP 94 / 54 (auto/); dsf 13:10 BP 96 / 56 (auto/); dsf 13:16 Pulse 68 MON; Pulse Ox 90% ; dsf 13:36 BP 98 / 54 (auto/); dsf 13:38 Pulse 68 MON; Pulse Ox 96% ; dsf 13:40 BP 109 / 57 (auto/); dsf 13:40 Pulse 70 MON; dsf 13:55 BP 98 / 55 (auto/); dsf 13:55 Pulse 70 MON; Pulse Ox 94% ; dsf 14:10 BP 114 / 72 (auto/); dsf 14:10 Pulse 68 MON; Pulse Ox 95% ; dsf 14:23 Pulse 68 MON; Pulse Ox 93% ; dsf 14:25 BP 117 / 76 (auto/); dsf 14:40 BP 93 / 60 (auto/); dsf 14:40 Pulse 68 MON; Pulse Ox 97% ; dsf 16:23 BP 117 / 67 (auto/); dsf 16:24 Pulse 68 MON; Resp 20; Temp 95.2(T); Pulse Ox 97% 2 lpm ; Pain 0/10; dsf 17:15 BP 126 / 65 LA Sitting (auto/lg); Pulse 68; Resp 20; Temp 96.5; Pulse Ox 95% on R/A; bnb Pain 0/10; 18:23 BP 128 / 87 (auto/); af2 18:23 Pulse 72 MON; Resp 18 S; Pulse Ox 96% on 2 lpm NC; af2 18:38 BP 130 / 74 (auto/); af2 18:38 Pulse 66 MON; Pulse Ox 95% ; af2 18:53 BP 137 / 75 (auto/); af2 18:53 Pulse 68 MON; Resp 18 S; Pulse Ox 92% on 2 lpm NC; af2 19:23 BP 114 / 66 (auto/); af2 19:23 Pulse 68 MON; Resp 18 S; Pulse Ox 96% on 2 lpm NC; af2 19:38 BP 125 / 74 (auto/); af2 19:38 Pulse 68 MON; Resp 18 S; Pulse Ox 92% on 2 lpm NC; af2 19:53 BP 126 / 67 (auto/); af2 19:54 Pulse 72 MON; Resp 18 S; Temp 96.9(O); Pulse Ox 96% on 2 lpm NC; af2 11:34 Body Mass Index 40.90 (122.02 kg, 172.72 cm) kc3 MDM: 11:28 -Blood Culture (Adults Only), peripheral from different site, or from device/port/PICC fg etc. if present ordered. 11:28 Capsule Filler/Pulse Ox/q 15 min VS ordered. fg 11:28 IV Saline Lock ordered. fg 11:28 Oxygen at 4L/Min NC or Home dosage ordered. fg 11:28 Rhythm Strip to chart ordered. fg 11:29 B-Type Natiuretic Peptide Ordered. EDMS 11:29 Basic Metabolic Profile Ordered. EDMS 11:29 CBC with Diff Ordered. EDMS 11:29 Cardiac Injury Profile Ordered. EDMS 11:29 Troponin Ordered. EDMS 11:29 -Blood Culture Ordered. EDMS 11:29 Chest, 1 View Ordered. EDMS 11:30 ECG WITH READING ER PHYS+CARDIAG ordered. EDMS 11:52 -Blood Culture (Adults Only), peripheral from different site, or from device/port/PICC jrd etc. if present complete. 11:53 BLOOD CULTURES Ordered. EDMS 13:14 Financial registration complete. lg 13:18 CT Chest without contrast Ordered. EDMS 13:19 [facility] Payment Agreement was scanned into [employer] and attached to record. lg 13:38 Ondansetron 4 mg IVP once ordered. fg 14:59 BED REQUEST+ADM ordered. EDMS 15:00 NS 0.9% 500 ml IV at bolus once ordered. fg 15:06 CONSISTENT CARBOHYDRATE+DIET ordered. EDMS 16:26 PHYSICAL THERAPY EVAL & TREAT ordered. EDMS 16:27 Admission / Observation Status ordered. EDMS 16:32 TROPONIN Ordered. EDMS 16:32 TROPONIN Ordered. EDMS 19:31 BASIC METABOLIC PROFILE Ordered. EDMS 19:31 COMPLETE BLOOD COUNT Ordered. EDMS Point of Care Testing: Blood Glucose: 11:42 Blood Glucose: 208 mg/dL; mb9 Ranges: Administered Medications: 13:43 Drug: Ondansetron 4 mg [ondansetron HCl 2 mg/mL intravenous solution (2 mL)] Route: dsf IVP; Site: left wrist; 15:04 Drug: NS 0.9% 500 ml [sodium chloride 0.9 % injection solution] Route: IV; Rate: bolus; dsf Site: left wrist; 16:27 Follow up: IV Status: Completed infusion; IV Intake: 500ml dsf Signatures: Dispatcher MedHo EDMO Harshal Don, RN RN Joyce Lentz, Jean Reg lg Edmundo Lu, MEDICAL SCRIBE MEDICAL SCRIBE d Jame AguayoRN RN mb9 Dariana Chan RN RN af2 Andrea Kaur, RN Luisa Dotson mts, MD MD fg Fuller, Desiree RN dsf The chart was reviewed and I authenticate all verbal orders and agree with the evaluation and treatment provided.Corrections: (The following items were deleted from the chart) 13:18 11:55 CT ANGIO CHEST+CT ordered. EDMS EDMS Attachments: 13:19 [facility] Payment Agreement lg MTDD
[2016-06-07] MEDS: HumaLOG INSULIN (NovoLOG) PER UNIT SC SCH ×2 (20:54→21:14)
[2016-06-07] MEDS: ADVAIR DISKUS 500/50 INH PWD INH SCH (21:00)
[2016-06-07] MEDS: HEPARIN SOD (PORCINE) 5000 UNITS/ML VIAL SC SCH (21:14)
[2016-06-07] MEDS: LEVEMIR (INSULIN DETEMIR) 1 UNITS/0.01ML SC SCH (21:14)
[2016-06-07] MEDS: ISOSORBIDE DIN. (ISORDIL) 30 MG TAB PO SCH (21:22)
[2016-06-07] MEDS: METOPROLOL TART 25 MG TABLET PO SCH (21:22)
[2016-06-07] MEDS: ONDANSETRON 4MG/2ML VIAL (J2405) IV PRN (21:55)
[2016-06-07] MEDS: DOXYCYCLINE HYCLATE 100 MG TAB PO SCH (21:55)
[2016-06-07] MEDS: RANOLAZINE 500 MG ER TAB PO SCH (21:56)
[2016-06-07] MEDS: NS 1,000 ML IV SCH (22:08)
[2016-06-07 23:54] VITALS: BP 114/68
[2016-06-08] MEDS ORDERED: METOCLOPRAMIDE INJ 10MG/2ML VIAL (J2765) IV ONE (01:00)
[2016-06-08 04:20] VITALS: BP 128/76
[2016-06-08 05:41] LABS: MEAN CORPUSCULAR HEMOGLOBIN 30.9 pg (27.0-33.0); MEAN CORPUSCULAR HGB CONC 34.7 g/dl (32.0-36.5); RED CELL DISTRIBUTION WIDTH 14.3 % (11.5-14.5); WHITE BLOOD COUNT 11.1 K/mm3 (4.0-10.0)
[2016-06-08 05:54] LABS: CALCIUM LEVEL 8.2 MG/DL (8.8-10.2); CREATININE FOR GFR 2.08 MG/DL (0.70-1.30); GLOMERULAR FILTRATION RATE 33.6 (>42); POTASSIUM SERUM 3.4 MEQ/L (3.5-5.1)
--- NOTE | 2016-06-08 06:46 | ECGEPIP ---
Stationary ECG Study [facility] - ED Test Date: 2016-06-07 Pat Name: CARTER DE LA ROSA Department: Room: - Gender: M X Ray Physician: : 1945 Requested By: KATY Bird Order Number: [id number] Reading MD: Malka Greenwood Measurements Intervals [place] Rate: 71 P: 32 SC: 199 QRS: -9 QRSD: 93 T: 36 QT: 411 QTc: 449 Interpretive Statements SINUS RHYTHM MODERATE T-WAVE ABNORMALITY, CONSIDER ANTERIOR ISCHEMIA LOW VOLTAGE LIMB INCREASED RATE 04/17/16 Electronically Signed On 06-08-2016 6:46:01 EST by Malka Greenwood
[2016-06-08 08:00] VITALS: BP 119/65
[2016-06-08] MEDS: ADVAIR DISKUS 500/50 INH PWD INH SCH ×2 (08:07→20:25)
[2016-06-08] MEDS ORDERED: predniSONE 10 MG TAB PO SCH (09:00)
[2016-06-08] MEDS ORDERED: POTASSIUM CHLORIDE 10 MEQ SR TABLET PO ONE (09:00)
--- NOTE | 2016-06-08 09:23 | REP ---
Chest x-ray: Two views. History: Shortness of breath. Comparison chest x-ray June 07, 2016. Findings: Oxygen delivery tubing and EKG monitoring electrodes overlie the chest. The lungs are mildly hyperinflated but free of infiltrate. Pleural angles are sharp. Heart is not enlarged. The aorta is calcific and a little tortuous. The pulmonary vasculature is not increased. There are degenerative changes in the thoracic spine. No other bony abnormality is seen. Impression: Mild hyperinflation. Otherwise no acute disease. Signed by Guevara Presley MD 06/08/2016 09:27 A
[2016-06-08] MEDS: HEPARIN SOD (PORCINE) 5000 UNITS/ML VIAL SC SCH ×2 (09:41→20:09)
[2016-06-08] MEDS: LEVEMIR (INSULIN DETEMIR) 1 UNITS/0.01ML SC SCH ×2 (09:42→20:10)
[2016-06-08] MEDS: HumaLOG INSULIN (NovoLOG) PER UNIT SC SCH ×4 (09:42→20:09)
[2016-06-08] MEDS: ATORVASTATIN 20 MG TAB PO SCH (09:43)
[2016-06-08] MEDS: ASPIRIN 325 MG TAB PO SCH (09:43)
[2016-06-08] MEDS: RANOLAZINE 500 MG ER TAB PO SCH ×2 (09:44→20:11)
[2016-06-08] MEDS: DOXYCYCLINE HYCLATE 100 MG TAB PO SCH ×2 (09:44→20:11)
[2016-06-08] MEDS: DULoxetine 30 MG CAP (CYMBALTA) PO SCH (09:44)
[2016-06-08] MEDS: ISOSORBIDE DIN. (ISORDIL) 30 MG TAB PO SCH ×2 (09:44→20:10)
[2016-06-08] MEDS: METOPROLOL TART 25 MG TABLET PO SCH ×2 (09:45→20:11)
[2016-06-08] MEDS: CLOPIDOGREL 75 MG TAB PO SCH (09:45)
[2016-06-08] MEDS: OMEPRAZOLE 20 MG CAP PO SCH (09:45)
[2016-06-08] MEDS: ONDANSETRON 4MG/2ML VIAL (J2405) IV PRN (09:54)
--- NOTE | 2016-06-08 09:54 | REP ---
RENAL AND BLADDER ULTRASOUND: Real-time sonographic evaluation of the kidneys performed and demonstrates both kidneys to be normal in size and echotexture, right kidney measuring 12.1 x 5.5 x 4.3 cm and left kidney 11.7 x 4.5 x 5.1 cm. There is no hydronephrosis or nephrolithiasis. Cyst centrally in the mid to upper right kidney measures 1.8 x 0.8 x 1.7 cm. Urinary bladder is mildly distended with no definite mass or calculus. IMPRESSION: Right renal cyst. No hydronephrosis. Signed by Ariel Yancey MD 06/08/2016 12:46 P
--- NOTE | 2016-06-08 09:58 | IPN ---
DATE OF SERVICE: 06/08/2016 The patient is seen and examined at the bedside. Chart has been reviewed. This morning the patient denies any chest pain, pressure, tightness, shortness of breath. He is at his baseline oxygen need at 2 liters nasal cannula continuously. The patient has had a total of 1.780 mL of intravenous (IV) fluids, current weight is 123.5 kilograms. On admission he weighed 122 kilograms. The patient denies any chest pain, pressure, tightness, nausea, vomiting, epigastric pain, abdominal pain. Creatinine is improved from 2.44 on admission to 2.08 with a baseline creatinine of 1.4. He is continued on IV fluids with no congestive symptoms at this time. He also complains of persistent diarrhea, about three loose bowel movements yesterday, watery in nature, nonbloody, nonmucousy, as well as lower quadrant abdominal pain bilaterally without radiation. The patient was recently treated for possible bronchitis and chronic pulmonary obstructive disease (COPD) exacerbation, was placed on doxycycline and tapering doses of pred which he is continued on. PHYSICAL EXAMINATION VITAL SIGNS: Temperature 97.2, pulse 63, sinus rhythm, respiratory 18, blood pressure 119/65, 97% on 2 liters nasal cannula. GENERAL: The patient is awake, alert and oriented times three, answering questions appropriately. LUNGS: No respiratory distress, or use of accessory muscles. Lungs, very diminished but clear to auscultation with prolonged expiratory phase. No wheezing noted. NECK: No jugular venous distention. HEART: S1, S2, sinus rhythm. ABDOMEN: Grossly obese, positive bowel sounds. Some tenderness bilateral lower quadrants, no rebound, guarding, no hepatosplenomegaly. EXTREMITIES: No cyanosis, or clubbing, some tract edema. NEUROLOGICALLY: Awake, alert and oriented times three. LABORATORY DATA: White count 11, hemoglobin 15, hematocrit 45, platelet count 236. Sodium 128, potassium 2.4, chloride 88, bicarbonate 27, BUN 76, creatinine 2.08, glucose 139. Microbiology: Two sets of blood cultures pending. Chest CT shows linear fibrosis, discoid atelectasis, chronically increasing interstitial markings. Deep venous thrombosis (DVT) prophylaxis with heparin subcutaneously. MTDD
[2016-06-08 12:00] VITALS: BP 137/58
[2016-06-08] MEDS: NS 1,000 ML IV SCH (12:03)
[2016-06-08 16:00] VITALS: BP 101/55
[2016-06-08 19:41] VITALS: BP 135/70
[2016-06-08] MEDS ORDERED: ACETAMINOPHEN TAB 650MG DOSE (2X325MG) PO PRN (20:45)
[2016-06-09] VITALS (8 sets, daily range): BP systolic 114–170; BP diastolic 63–88; PULSE 70
[2016-06-09 05:38] LABS: MEAN CORPUSCULAR HEMOGLOBIN 29.5 pg (27.0-33.0); MEAN CORPUSCULAR VOLUME 86.9 fl (80.0-96.0); RED CELL DISTRIBUTION WIDTH 14.4 % (11.5-14.5); WHITE BLOOD COUNT 6.7 K/mm3 (4.0-10.0)
[2016-06-09] MEDS: ADVAIR DISKUS 500/50 INH PWD INH SCH ×2 (07:44→20:44)
[2016-06-09] MEDS: LEVEMIR (INSULIN DETEMIR) 1 UNITS/0.01ML SC SCH ×2 (08:31→21:02)
[2016-06-09] MEDS: HumaLOG INSULIN (NovoLOG) PER UNIT SC SCH ×4 (08:32→21:11)
[2016-06-09] MEDS: RANOLAZINE 500 MG ER TAB PO SCH ×2 (08:33→21:01)
[2016-06-09] MEDS: ASPIRIN 325 MG TAB PO SCH (08:33)
[2016-06-09] MEDS: HEPARIN SOD (PORCINE) 5000 UNITS/ML VIAL SC SCH ×2 (08:33→21:08)
[2016-06-09] MEDS: OMEPRAZOLE 20 MG CAP PO SCH (08:33)
[2016-06-09] MEDS: DULoxetine 30 MG CAP (CYMBALTA) PO SCH (08:34)
[2016-06-09] MEDS: ATORVASTATIN 20 MG TAB PO SCH (08:34)
[2016-06-09] MEDS: SPIRONOLACTONE 25 MG TAB PO SCH (08:35)
[2016-06-09] MEDS: ISOSORBIDE DIN. (ISORDIL) 30 MG TAB PO SCH ×2 (08:35→21:09)
[2016-06-09] MEDS: CLOPIDOGREL 75 MG TAB PO SCH (08:35)
[2016-06-09] MEDS: DOXYCYCLINE HYCLATE 100 MG TAB PO SCH ×2 (08:36→21:08)
[2016-06-09] MEDS: METOPROLOL TART 25 MG TABLET PO SCH ×2 (08:36→21:09)
[2016-06-09 09:01] LABS: CALCIUM LEVEL 8.4 MG/DL (8.8-10.2); CREATININE FOR GFR 1.63 MG/DL (0.70-1.30); GLOMERULAR FILTRATION RATE 44.5 (>42); POTASSIUM SERUM 3.7 MEQ/L (3.5-5.1)
--- NOTE | 2016-06-09 09:28 | REP ---
PORTABLE CHEST X-RAY: Single view. HISTORY: Shortness of breath. Comparison chest x-ray June 08, 2016. FINDINGS: EKG monitoring electrodes overlie the chest. There is linear plate-like atelectasis along the left heart border in the left base. Lung rosales are otherwise clear. Pleural angles are sharp. Heart size is borderline. Pulmonary vasculature is not increased. IMPRESSION: Borderline heart size. Linear plate-like atelectasis along the left heart border. Otherwise no acute disease. Signed by Guevara Presley MD 06/09/2016 09:50 A
--- NOTE | 2016-06-09 10:08 | IPN ---
DATE: 06/09/2016 The patient complains of auditory hallucinations this morning. Since yesterday unable to sleep and describes organ music in the [place] silent night with hummed voices. The patient has prior episode of this while he was in the hospital last time around. He does not have these episodes at home. He currently denies any shortness of breath, chest pain, pressure or tightness, palpitations, lightheadedness, dizziness, nausea, vomiting, or abdominal pain. VITALS: Temperature 96.6, pulse 66, respiratory rate 18, blood pressure 170/88, 95% on 2 liters nasal cannula. GENERAL: Awake, alert and oriented times three, answering questions appropriately. LUNGS: Diminished, but clear to auscultation. No wheezing, rales or rhonchi. HEART: S1, S2, sinus rhythm. ABDOMEN: Obese, soft, nontender, nondistended. EXTREMITIES: Chronic edema 2+. LABORATORY DATA: 06/09/2016 CBC within normal limits. 06/09/2016 metabolic panel still pending. ASSESSMENT AND PLAN: This is a 71-year-old male with history of diastolic heart failure on echo in the Fall of 2014, coronary artery disease, diabetes, hypertension, chronic obstructive pulmonary disease, dyslipidemia, chronic kidney disease, obstructive sleep apnea, reflux, hypertension, depression, cardiac stents, cholecystectomy, former smoker, on chronic Lasix 80 twice a day who presents to the emergency room on 06/07/2016 complaining of weakness and nausea with worsening shortness of breath, initially treated for bronchitis as outpatient and chronic obstructive pulmonary disease exacerbation with doxycycline and steroid taper. He was recently seen by his marble coper with increase in Lasix from 40 twice a day to 80 twice a day, as well as, metolazone 2.5 mg every other day with an approximate 20 pound weight loss over the past four to five days who presents with worsening weakness and nausea. The patient was found to have acute kidney injury with presenting creatinine of 2.44 from baseline creatinine of 1.3 to 1.4. The patient's diuretics have been held. CURRENT ISSUES: 1. Acute on chronic renal failure. The patient is improving on intravenous fluids. Most likely secondary to dehydration from recent increase of Lasix to 80 mg twice a day. The patient's lisinopril has also been discontinued due to acute renal failure. His blood pressure is controlled currently. 2. Hyponatremia, most likely secondary to overdiuresis with his metolazone, Lasix and LAMIN inhibitor. Patient has been placed on normal saline. Repeat blood test this morning is still pending. 3. Chronic obstructive pulmonary disease. Close to baseline. The patient is on a tapered dose of prednisone, doxycycline and home inhalers. 4. History of coronary artery disease, congestive heart failure. Currently compensated. He is continued on Lipitor, Plavix, isosorbide, metoprolol, Ranexa , nitroglycerin. 5. Obstructive sleep apnea. On CPAP. 6. Insulin dependent diabetes. Sliding scale. Home dose of long acting insulin. Consistent carbohydrate diet. 7. Hypertension. Continue antihypertensives. 8. Deep vein thrombosis prophylaxis. Subcutaneous heparin. 9. Dyslipidemia. On statin. 10. Acute encephalopathy. Most likely metabolic. 11. Acute delirium secondary to renal failure and hyponatremia. I have discussed at length with the patient that there appears to be no immediate cause of concern for his auditory hallucinations. He has normal ammonia level at 15. Salicylate level is less than 2. We are awaiting his duloxetine levels. I have encouraged his to provide a diary if it persists at home and for a psychiatric referral to rule out schizophrenia as the patient has begun to hear voices along with his organ music. RANDY
[2016-06-09] MEDS: ONDANSETRON 4MG/2ML VIAL (J2405) IV PRN (10:40)
[2016-06-09] MEDS: NS 1,000 ML IV SCH (12:00)
--- NOTE | 2016-06-09 21:18 | EDDOCDS ---
Physician Documentation [facility] Name: Artemio Alberto Age: 71 yrs Sex: Male : 1945 Arrival Date: 06/07/2016 Time: 11:20 Bed Admit Hold Private MD: Disposition: 06/07/16 14:59 Hospitalization ordered by Maria Eugenia Dolan for Inpatient Admission. Preliminary diagnosis are Shortness of breath, Hypo-osmolality and hyponatremia, Injury of kidney. - Bed requested for PCU. - Status is Inpatient Admission. cz - Condition is Stable. - Problem is new. - Symptoms have improved. Historical: - Allergies: Augmentin; Ceftin; Levofloxacin; PENICILLINS; - Home Meds: 1. 2L NC 2. Ranexa 1,000 mg oral Tb12 1 tab 2 times per day 3. Plavix 75 mg Oral tab 1 tab once daily 4. Novolog sliding scale Sub-Q 4 times a day 5. DuoNeb 0.5 mg-3 mg(2.5 mg base)/3 mL Inhl nebu 6. Ventolin HFA 90 mcg/actuation Nebulizer HFAA 2 puffs as needed 7. atorvastatin 80 mg oral tab 1 tab once daily 8. duloxetine 90 mg Oral cpDR 1 cap once daily 9. lisinopril 5 mg Oral tab 1 tab once daily 10. Advair Diskus 500-50 mcg/dose Inhl dsdv 1 puff 2 times per day 11. Lantus 50 units Sub-Q twice a day 12. isosorbide dinitrate 30 mg Oral tab 2 tabs 2 times per day 13. Prilosec 20 mg Oral cpDR 1 cap 2 times per day 14. NitroQuick 0.4 mg SL subl 1 tab as needed 15. cpap 16. Lasix 40 mg Oral tab 2 tabs 2 times per day 17. spironolactone 25 mg Oral tab 1 tab once daily 18. metoprolol tartrate 25 mg Oral tab 1 tab 2 times per day 19. metolazone 2.5 mg oral tab 1 tab take one tab every other day 20. Prednisolone 10 mg Oral 3 tabs once daily taper dose 21. doxycycline hyclate 100 mg Oral tab 1 tab every 12 hours - PMHx: COPD; Depression; Diabetes - IDDM: uncontrolled; GERD; Hypercholesterolemia; Hypertension; - PSHx: Cardiac stents; Cholecystectomy; - Social history: Smoking status: Patient states former smoker of tobacco. No barriers to communication noted, The patient speaks fluent Latvian. - Family history: Not pertinent. - : The pt / caregiver states he / she is on anticoagulants: Plavix. Home medication list is obtained from patients' pharmacy. - Exposure Risk Screening:: None identified. Vital Signs: 06/07 11:28 BP 114 / 76 (auto/); dsf 11:29 Pulse Ox 94% ; dsf 11:34 BP 114 / 76; Pulse 71; Resp 20; Temp 96.8(O); Pulse Ox 95% on R/A; Weight 122.02 kg / kc3 269.01 lbs (R); Height 5 ft. 8 in. (172.72 cm); 11:44 Pulse 72 MON; Pulse Ox 93% ; dsf 11:46 BP 114 / 59 (auto/); dsf 12:35 Pulse 66 MON; Pulse Ox 94% ; dsf 12:40 BP 106 / 58 (auto/); dsf 12:40 Pulse Ox 94% ; dsf 12:54 Pulse 66 MON; Pulse Ox 92% ; dsf 12:55 BP 94 / 54 (auto/); dsf 13:10 BP 96 / 56 (auto/); dsf 13:16 Pulse 68 MON; Pulse Ox 90% ; dsf 13:36 BP 98 / 54 (auto/); dsf 13:38 Pulse 68 MON; Pulse Ox 96% ; dsf 13:40 BP 109 / 57 (auto/); dsf 13:40 Pulse 70 MON; dsf 13:55 BP 98 / 55 (auto/); dsf 13:55 Pulse 70 MON; Pulse Ox 94% ; dsf 14:10 BP 114 / 72 (auto/); dsf 14:10 Pulse 68 MON; Pulse Ox 95% ; dsf 14:23 Pulse 68 MON; Pulse Ox 93% ; dsf 14:25 BP 117 / 76 (auto/); dsf 14:40 BP 93 / 60 (auto/); dsf 14:40 Pulse 68 MON; Pulse Ox 97% ; dsf 16:23 BP 117 / 67 (auto/); dsf 16:24 Pulse 68 MON; Resp 20; Temp 95.2(T); Pulse Ox 97% 2 lpm ; Pain 0/10; dsf 17:15 BP 126 / 65 LA Sitting (auto/lg); Pulse 68; Resp 20; Temp 96.5; Pulse Ox 95% on R/A; bnb Pain 0/10; 18:23 BP 128 / 87 (auto/); af2 18:23 Pulse 72 MON; Resp 18 S; Pulse Ox 96% on 2 lpm NC; af2 18:38 BP 130 / 74 (auto/); af2 18:38 Pulse 66 MON; Pulse Ox 95% ; af2 18:53 BP 137 / 75 (auto/); af2 18:53 Pulse 68 MON; Resp 18 S; Pulse Ox 92% on 2 lpm NC; af2 19:23 BP 114 / 66 (auto/); af2 19:23 Pulse 68 MON; Resp 18 S; Pulse Ox 96% on 2 lpm NC; af2 19:38 BP 125 / 74 (auto/); af2 19:38 Pulse 68 MON; Resp 18 S; Pulse Ox 92% on 2 lpm NC; af2 19:53 BP 126 / 67 (auto/); af2 19:54 Pulse 72 MON; Resp 18 S; Temp 96.9(O); Pulse Ox 96% on 2 lpm NC; af2 11:34 Body Mass Index 40.90 (122.02 kg, 172.72 cm) kc3 MDM: 11:28 -Blood Culture (Adults Only), peripheral from different site, or from device/port/PICC fg etc. if present ordered. 11:28 Open Source Developer/Pulse Ox/q 15 min VS ordered. fg 11:28 IV Saline Lock ordered. fg 11:28 Oxygen at 4L/Min NC or Home dosage ordered. fg 11:28 Rhythm Strip to chart ordered. fg 11:29 B-Type Natiuretic Peptide Ordered. EDMS 11:29 Basic Metabolic Profile Ordered. EDMS 11:29 CBC with Diff Ordered. EDMS 11:29 Cardiac Injury Profile Ordered. EDMS 11:29 Troponin Ordered. EDMS 11:29 -Blood Culture Ordered. EDMS 11:29 Chest, 1 View Ordered. EDMS 11:30 ECG WITH READING ER PHYS+CARDIAG ordered. EDMS 11:52 -Blood Culture (Adults Only), peripheral from different site, or from device/port/PICC jrd etc. if present complete. 11:53 BLOOD CULTURES Ordered. EDMS 13:14 Financial registration complete. lg 13:18 CT Chest without contrast Ordered. EDMS 13:19 [facility] Payment Agreement was scanned into [employer] and attached to record. lg 13:38 Ondansetron 4 mg IVP once ordered. fg 14:59 BED REQUEST+ADM ordered. EDMS 15:00 NS 0.9% 500 ml IV at bolus once ordered. fg 15:06 CONSISTENT CARBOHYDRATE+DIET ordered. EDMS 16:26 PHYSICAL THERAPY EVAL & TREAT ordered. EDMS 16:27 Admission / Observation Status ordered. EDMS 16:32 TROPONIN Ordered. EDMS 16:32 TROPONIN Ordered. EDMS 19:31 BASIC METABOLIC PROFILE Ordered. EDMS 19:31 COMPLETE BLOOD COUNT Ordered. EDMS 06/08 10:04 T-Sheet-- Draft Copy was scanned into [employer] and attached to record. gb 10:04 ECG/EKG was scanned into [employer] and attached to record. gb Point of Care Testing: Blood Glucose: 06/07 11:42 Blood Glucose: 208 mg/dL; mb9 Ranges: Administered Medications: 13:43 Drug: Ondansetron 4 mg [ondansetron HCl 2 mg/mL intravenous solution (2 mL)] Route: dsf IVP; Site: left wrist; 15:04 Drug: NS 0.9% 500 ml [sodium chloride 0.9 % injection solution] Route: IV; Rate: bolus; dsf Site: left wrist; 16:27 Follow up: IV Status: Completed infusion; IV Intake: 500ml dsf Signatures: Dispatcher MedHo EDDC Harshal Don RN RN cz Barnhardt, Gloria, Reg Reg gb Joyce Mejia, Reg Reg lg Edmundo Lu, FRAME BENDER FRAME BENDER d Jame Aguayo RN RN mb9 Dariana Chan RN RN af2 Andrea Kaur RN RN mts Gill, Frances, MD MD fg Fuller, Desiree RN dsf The chart was reviewed and I authenticate all verbal orders and agree with the evaluation and treatment provided.Corrections: (The following items were deleted from the chart) 13:18 11:55 CT ANGIO CHEST+CT ordered. EDDC EDMS Attachments: 13:19 [facility] Payment Agreement 06/08 10:04 T-Sheet-- Draft Copy gb 10:04 ECG/EKG gb Chart Complete MTDD
--- NOTE | 2016-06-09 21:18 | EDDOCDS ---
Nurse's Notes [facility] Name: Artemio Alberto Age: 71 yrs Sex: Male : 1945 Arrival Date: 06/07/2016 Time: 11:20 Bed Admit Hold Private MD: Diagnosis: Shortness of breath;Hypo-osmolality and hyponatremia;Injury of kidney Presentation: 06/07 11:29 Presenting complaint: Patient states: "Well it's been going on since two weeks before mb9 [place]. I just haven't felt well. Today I couldn't get out of bed. I was weak and dizzy and nauseous.". pt also reports some chest discomfort at the time of the incident which has subsided. EMS gave 4 mg of IV zofran en route. Suicide/Homicide risk assessment- the patient denies having any suicidal and/or homicidal ideations and does not present with any other emotional, behavioral or mental health complaints. 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 Transition of care: patient was not received from another setting of care. Care prior to arrival: See EMS report. 11:29 Acuity: LYNN Level 2 mb9 11:29 Method Of Arrival: Ambulance mb9 11:42 Adult Sepsis Screening: The patient does not have new or worsening altered mentation. mb9 Patient's respiratory rate is less than 22. Systolic blood pressure is greater than 100. Patient has a qSOFA score of 0- Negative Sepsis Screen. Triage Assessment: 11:38 General: Appears in no apparent distress, Behavior is appropriate for age, cooperative. mb9 General: pt reports a weight los of 21 lbs from SundayJune 02 to SundayJune 05. Pt reports that his PHCP instructed him to, "double up my lasix on Sunday". . Pain: Denies pain. Neurological: Level of Consciousness is awake, alert, Oriented to person, place, time, Speech is normal, Facial symmetry appears normal, Pupils are PERRLA. Cardiovascular: Heart tones S1 S2 present Rhythm is sinus rhythm. Respiratory: Airway is patent Respiratory effort is even, unlabored, Breath sounds are clear bilaterally. Breath sounds are diminished bilaterally. Historical: - Allergies: Augmentin; Ceftin; Levofloxacin; PENICILLINS; - Home Meds: 1. 2L NC 2. Ranexa 1,000 mg oral Tb12 1 tab 2 times per day 3. Plavix 75 mg Oral tab 1 tab once daily 4. Novolog sliding scale Sub-Q 4 times a day 5. DuoNeb 0.5 mg-3 mg(2.5 mg base)/3 mL Inhl nebu 6. Ventolin HFA 90 mcg/actuation Nebulizer HFAA 2 puffs as needed 7. atorvastatin 80 mg oral tab 1 tab once daily 8. duloxetine 90 mg Oral cpDR 1 cap once daily 9. lisinopril 5 mg Oral tab 1 tab once daily 10. Advair Diskus 500-50 mcg/dose Inhl dsdv 1 puff 2 times per day 11. Lantus 50 units Sub-Q twice a day 12. isosorbide dinitrate 30 mg Oral tab 2 tabs 2 times per day 13. Prilosec 20 mg Oral cpDR 1 cap 2 times per day 14. NitroQuick 0.4 mg SL subl 1 tab as needed 15. cpap 16. Lasix 40 mg Oral tab 2 tabs 2 times per day 17. spironolactone 25 mg Oral tab 1 tab once daily 18. metoprolol tartrate 25 mg Oral tab 1 tab 2 times per day 19. metolazone 2.5 mg oral tab 1 tab take one tab every other day 20. Prednisolone 10 mg Oral 3 tabs once daily taper dose 21. doxycycline hyclate 100 mg Oral tab 1 tab every 12 hours - PMHx: COPD; Depression; Diabetes - IDDM: uncontrolled; GERD; Hypercholesterolemia; Hypertension; - PSHx: Cardiac stents; Cholecystectomy; - Social history: Smoking status: Patient states former smoker of tobacco. No barriers to communication noted, The patient speaks fluent Yakut. - Family history: Not pertinent. - : The pt / caregiver states he / she is on anticoagulants: Plavix. Home medication list is obtained from patients' pharmacy. - Exposure Risk Screening:: None identified. Screenin:59 Screening information is obtained from the patient. Fall risk: No risks identified. dsf Assistance ADL's: requires no assistance with activities of daily living. Abuse/DV Screen: The patient / caregiver reports he/she is: not in a situation that causes fear, pain or injury. Nutritional screening: No deficits noted. Advance Directives: Currently, there is no health care proxy. home support is adequate. Assessment: 11:50 General: Appears in no apparent distress, Behavior is appropriate for age, cooperative. dsf Pain: Denies pain. Neurological: Level of Consciousness is awake, alert, Oriented to person, place, time. Cardiovascular: Capillary refill < 3 seconds Heart tones S1 S2 present Rhythm is sinus rhythm No ectopy. Respiratory: Airway is patent Respiratory effort is even, unlabored, Respiratory pattern is regular, symmetrical, Breath sounds are diminished in left posterior lower lobe and right posterior lower lobe Reports shortness of breath on exertion since after [place]. GI: Abdomen is obese, Bowel sounds present X 4 quads. Abd is soft and non tender X 4 quads. Reports nausea. Derm: Skin is clammy, Skin is normal, Skin temperature is cool. 12:50 Adult Sepsis Screening: The patient does not have new or worsening altered mentation. dsf Patient's respiratory rate is less than 22. Systolic blood pressure is greater than 100. Patient has a qSOFA score of 0- Negative Sepsis Screen. General: Appears in no apparent distress, comfortable, Behavior is appropriate for age, cooperative. Neurological: Level of Consciousness is awake, alert. Cardiovascular: Capillary refill < 3 seconds Rhythm is sinus rhythm No ectopy. Respiratory: Airway is patent Respiratory effort is even, unlabored, Respiratory pattern is regular, symmetrical. Derm: Skin is clammy, Skin is normal, Skin temperature is cool. 13:38 General: pt c/o nausea pt medicated with zofran. SR on monitor. airway patient, dsf respirations easy and unlabored. skin normal, clammy and cool. pt refuses a blanket at this time. will continue to monitor . 14:38 Adult Sepsis Screening: The patient does not have new or worsening altered mentation. dsf Patient's respiratory rate is less than 22. Systolic blood pressure is greater than 100. Patient has a qSOFA score of 0- Negative Sepsis Screen. General: Appears in no apparent distress, comfortable, Behavior is appropriate for age, cooperative. Pain: Denies pain. Neurological: Level of Consciousness is awake, alert, Oriented to person, place, time. Cardiovascular: Capillary refill < 3 seconds Heart tones S1 S2 present Rhythm is sinus rhythm No ectopy. Respiratory: Airway is patent Respiratory effort is even, unlabored, Respiratory pattern is regular, symmetrical, Breath sounds are diminished in left posterior lower lobe and right posterior lower lobe. GI: Abdomen is obese, Bowel sounds present X 4 quads. Abd is soft and non tender X 4 quads. Denies nausea. Derm: Skin is clammy, Skin is normal, Skin temperature is cool. 15:38 General: pt sitting up eating a lunch tray. family at bedside. SR on monitor. dsf Respirations easy and unlabored. Will continue to monitor. Pt denies nausea or pain at this time . 16:26 Adult Sepsis Screening: The patient does not have new or worsening altered mentation. dsf Patient's respiratory rate is less than 22. Systolic blood pressure is greater than 100. Patient has a qSOFA score of 0- Negative Sepsis Screen. General: Appears in no apparent distress, comfortable, Behavior is appropriate for age, cooperative. Pain: Denies pain. Neurological: Level of Consciousness is awake, alert. Cardiovascular: Capillary refill < 3 seconds Rhythm is sinus rhythm No ectopy. Respiratory: Airway is patent Respiratory effort is even, unlabored, Respiratory pattern is regular, symmetrical. GI: Abdomen is obese, Denies nausea. Derm: Skin is clammy, Skin is normal, Skin temperature is cool. 16:40 GI: Stools are reported to be loose. dsf 17:34 General: Appears in no apparent distress, comfortable, Behavior is appropriate for age, dsf cooperative. Pain: Denies pain. Neurological: Level of Consciousness is awake, alert, Oriented to person, place, time. Cardiovascular: Capillary refill < 3 seconds Rhythm is sinus rhythm No ectopy. Respiratory: Airway is patent Respiratory effort is even, unlabored, Respiratory pattern is regular, symmetrical. GI: Abdomen is obese. Derm: Skin is dry, Skin is normal, Skin temperature is cool. 18:34 General: Appears in no apparent distress. Neurological: Level of Consciousness is dsf awake, alert. Cardiovascular: No deficits noted. Respiratory: Airway is patent Respiratory effort is even, unlabored, Respiratory pattern is regular, symmetrical. Derm: Skin is dry, Skin is normal, Skin temperature is cool. 19:11 General: Appears in no apparent distress, comfortable, Behavior is appropriate for age, af2 cooperative, Assumed care of pt at this time. Pt and family updated regarding plan of care at this time. Pt offers no complaints at this time. Will continue to monitor. . Neurological: Level of Consciousness is awake, alert, Oriented to person, place, time. Cardiovascular: Rhythm is sinus rhythm No ectopy. Respiratory: Airway is patent Respiratory effort is even, unlabored. Derm: Skin is normal. 20:00 General: Appears in no apparent distress, comfortable, Behavior is appropriate for age, af2 cooperative. Neurological: Level of Consciousness is awake, alert, Oriented to person, place, time. Respiratory: Airway is patent Respiratory effort is even, unlabored. Derm: Skin is normal. Vital Signs: 11:28 BP 114 / 76 (auto/); dsf 11:29 Pulse Ox 94% ; dsf 11:34 BP 114 / 76; Pulse 71; Resp 20; Temp 96.8(O); Pulse Ox 95% on R/A; Weight 122.02 kg kc3 (R); Height 5 ft. 8 in. (172.72 cm); 11:44 Pulse 72 MON; Pulse Ox 93% ; dsf 11:46 BP 114 / 59 (auto/); dsf 12:35 Pulse 66 MON; Pulse Ox 94% ; dsf 12:40 BP 106 / 58 (auto/); dsf 12:40 Pulse Ox 94% ; dsf 12:54 Pulse 66 MON; Pulse Ox 92% ; dsf 12:55 BP 94 / 54 (auto/); dsf 13:10 BP 96 / 56 (auto/); dsf 13:16 Pulse 68 MON; Pulse Ox 90% ; dsf 13:36 BP 98 / 54 (auto/); dsf 13:38 Pulse 68 MON; Pulse Ox 96% ; dsf 13:40 BP 109 / 57 (auto/); dsf 13:40 Pulse 70 MON; dsf 13:55 BP 98 / 55 (auto/); dsf 13:55 Pulse 70 MON; Pulse Ox 94% ; dsf 14:10 BP 114 / 72 (auto/); dsf 14:10 Pulse 68 MON; Pulse Ox 95% ; dsf 14:23 Pulse 68 MON; Pulse Ox 93% ; dsf 14:25 BP 117 / 76 (auto/); dsf 14:40 BP 93 / 60 (auto/); dsf 14:40 Pulse 68 MON; Pulse Ox 97% ; dsf 16:23 BP 117 / 67 (auto/); dsf 16:24 Pulse 68 MON; Resp 20; Temp 95.2(T); Pulse Ox 97% 2 lpm ; Pain 0/10; dsf 17:15 BP 126 / 65 LA Sitting (auto/lg); Pulse 68; Resp 20; Temp 96.5; Pulse Ox 95% on R/A; bnb Pain 0/10; 18:23 BP 128 / 87 (auto/); af2 18:23 Pulse 72 MON; Resp 18 S; Pulse Ox 96% on 2 lpm NC; af2 18:38 BP 130 / 74 (auto/); af2 18:38 Pulse 66 MON; Pulse Ox 95% ; af2 18:53 BP 137 / 75 (auto/); af2 18:53 Pulse 68 MON; Resp 18 S; Pulse Ox 92% on 2 lpm NC; af2 19:23 BP 114 / 66 (auto/); af2 19:23 Pulse 68 MON; Resp 18 S; Pulse Ox 96% on 2 lpm NC; af2 19:38 BP 125 / 74 (auto/); af2 19:38 Pulse 68 MON; Resp 18 S; Pulse Ox 92% on 2 lpm NC; af2 19:53 BP 126 / 67 (auto/); af2 19:54 Pulse 72 MON; Resp 18 S; Temp 96.9(O); Pulse Ox 96% on 2 lpm NC; af2 11:34 Body Mass Index 40.90 (122.02 kg, 172.72 cm) kc3 Vitals: 11:33 Log In Time N/A - ambulance arrival. mb9 ED Course: 11:21 Patient visited by Edmundo Lu PCA. jrd 11:21 Patient moved to [facility] jrd 11:21 Patient moved to [facility] 11:21 The patient / caregiver is instructed regarding the plan of care and ED course. Patient dsf has correct armband on for positive identification. Placed in gown. Bed in low position. Call light in reach. Side rails up X2. night monitor on. Pulse ox on. NIBP on. 11:27 Luisa Biswas MD is Attending Physician. fg 11:27 Patient visited by Luisa Biswas MD. fg 11:31 Triage Initiated mb9 11:48 Patient visited by Ena Tatum PCA. rs6 11:48 EKG done. (by ED staff). Reviewed by Luisa Biswas MD. rs6 11:50 Maintain field IV. Dressing intact. Good blood return noted. Site clean & dry. Gauge & dsf site: #20 gauge left wrist . O2 via nasal cannula \\T\\ 2L/min. 11:52 Patient visited by Bianka Rocha RN. dsf 12:20 -Blood Culture Sent. dsf 12:20 B-Type Natiuretic Peptide Sent. dsf 12:20 Basic Metabolic Profile Sent. dsf 12:20 CBC with Diff Sent. dsf 12:20 Cardiac Injury Profile Sent. dsf 12:20 Troponin Sent. dsf 12:43 Chest, 1 View Returned. EDMS 13:02 Patient visited by Bianka Rocha RN. dsf 13:19 [facility] Payment Agreement was scanned into [employer] and attached to record. lg 13:44 Patient visited by Bianka Rocha RN. dsf 14:58 Patient visited by Bianka Rocha RN. dsf 14:59 Maria Eugenia Dolan is Hospitalizing Provider. fg 15:21 CT Chest without contrast Returned. EDMS 15:35 Patient visited by Luz Amador RN. lmb 15:43 Patient visited by Bianka Rocha RN. dsf 16:27 Patient visited by Bianka Rocha RN. dsf 17:16 Patient visited by Ceci Escobedo PCA. bnb 17:25 No procedures done that require assistance. dsf 17:35 Patient visited by Bianka Rocha RN. dsf 18:03 Patient moved to Admit Hold [facility] 18:48 Patient visited by Bianka Rocha RN. dsf 19:01 Dariana ChanRN is Primary Nurse. af2 19:15 Patient visited by Dariana Chan RN. af2 19:29 Patient visited by Dariana Chan RN. af2 20:02 Patient visited by Dariana Chan RN. af2 20:02 Patient visited by Dariana Chan RN. af2 20:08 Patient visited by Dariana Chan RN. af2 06/08 10:04 T-Sheet-- Draft Copy was scanned into [employer] and attached to record. gb 10:04 ECG/EKG was scanned into [employer] and attached to record. gb Administered Medications: 06/07 13:43 Drug: Ondansetron 4 mg [ondansetron HCl 2 mg/mL intravenous solution (2 mL)] Route: dsf IVP; Site: left wrist; 15:04 Drug: NS 0.9% 500 ml [sodium chloride 0.9 % injection solution] Route: IV; Rate: bolus; dsf Site: left wrist; 16:27 Follow up: IV Status: Completed infusion; IV Intake: 500ml dsf Point of Care Testing: Blood Glucose: 11:42 Blood Glucose: 208 mg/dL; mb9 Ranges: Intake: 16:27 IV: 500.00ml; Total: 500.00ml. dsf Output: 16:40 Stool: 1 (Loose Stool) ; Total: 0.00ml. dsf Order Results: Lab Order: B-Type Natiuretic Peptide; SPEC'M 06/07/16 12:19 Test: BRAIN NATRIURETIC PEPTIDE; Value: 17.6; Range: <100; Units: PG/ML; Status: F Lab Order: Basic Metabolic Profile; SPEC'M 06/07/16 12:19 Test: GLUCOSE, FASTING; Value: 202; Range: 83-110; Abnormal: Above high normal; Units: MG/DL; Status: F Test: BLOOD UREA NITROGEN; Value: 77; Range: 7-18; Abnormal: Above high normal; Units: MG/DL; Status: F Test: CREATININE FOR GFR; Value: 2.44; Range: 0.70-1.30; Abnormal: Above high normal; Units: MG/DL; Status: F Test: GLOMERULAR FILTRATION RATE; Value: 27.9; Range: >42; Abnormal: Below low normal; Status: F Test: SODIUM LEVEL; Value: 127; Range: 136-145; Abnormal: Below low normal; Units: MEQ/L; Status: F Test: POTASSIUM SERUM; Value: 3.2; Range: 3.5-5.1; Abnormal: Below low normal; Units: MEQ/L; Status: F Test: CHLORIDE LEVEL; Value: 84; Range: 98-107; Abnormal: Below low normal; Units: MEQ/L; Status: F Test: CARBON DIOXIDE LEVEL; Value: 28; Range: 21-32; Units: MEQ/L; Status: F Test: ANION GAP; Value: 15; Range: 8-16; Units: MEQ/L; Status: F Test: CALCIUM LEVEL; Value: 8.7; Range: 8.8-10.2; Abnormal: Below low normal; Units: MG/DL; Status: F Test Note: ; Units are mL/min/1.73 m2 Chronic Kidney Disease Staging per NKF: Stage I & II GFR >=60 Normal to Mildly Decreased Stage III GFR 30-59 Moderately Decreased Stage IV GFR 15-29 Severely Decreased Stage V GFR <15 Very Little GFR Left ESRD GFR <15 on DISABILITY MANAGER Lab Order: CBC with Diff; SPEC'M 06/07/16 12:19 Test: WHITE BLOOD COUNT; Value: 12.8; Range: 4.0-10.0; Abnormal: Above high normal; Units: K/mm3; Status: F Test: RED BLOOD COUNT; Value: 5.72; Range: 4.30-6.10; Units: M/mm3; Status: F Test: HEMOGLOBIN; Value: 17.7; Range: 14.0-18.0; Units: g/dl; Status: F Test: HEMATOCRIT; Value: 50.4; Range: 42.0-52.0; Units: %; Status: F Test: MEAN CORPUSCULAR VOLUME; Value: 88.1; Range: 80.0-96.0; Units: fl; Status: F Test: MEAN CORPUSCULAR HEMOGLOBIN; Value: 31.0; Range: 27.0-33.0; Units: pg; Status: F Test: MEAN CORPUSCULAR HGB CONC; Value: 35.2; Range: 32.0-36.5; Units: g/dl; Status: F Test: RED CELL DISTRIBUTION WIDTH; Value: 13.2; Range: 11.5-14.5; Units: %; Status: F Test: PLATELET COUNT, AUTOMATED; Value: 254; Range: 150-450; Units: k/mm3; Status: F Test: NEUTROPHILS %; Value: 88.2; Range: 36.0-66.0; Abnormal: Above high normal; Units: %; Status: F Test: LYMPH %; Value: 4.3; Range: 24.0-44.0; Abnormal: Below low normal; Units: %; Status: F Test: MONO %; Value: 5.7; Range: 0.0-5.0; Abnormal: Above high normal; Units: %; Status: F Test: EOS %; Value: 0.4; Range: 0.0-3.0; Units: %; Status: F Test: BASO %; Value: 0.3; Range: 0.0-1.0; Units: %; Status: F Test: LARGE UNSTAINED CELL %; Value: 1.2; Range: 0.0-4.0; Units: %; Status: F Test: NEUTROPHILS #; Value: 11.3; Range: 1.8-7.7; Abnormal: Above high normal; Units: K/mm3; Status: F Test: LYMPH #; Value: 0.5; Range: 1.5-4.5; Abnormal: Below low normal; Units: K/mm3; Status: F Test: MONO #; Value: 0.7; Range: 0.0-0.8; Units: K/mm3; Status: F Test: EOS #; Value: 0.0; Range: 0.0-0.50; Units: K/mm3; Status: F Test: BASO #; Value: 0.0; Range: 0.0-0.2; Units: K/mm3; Status: F Test: LARGE UNSTAINED CELL #; Value: 0.2; Range: 0.0-0.4; Units: K/mm3; Status: F Lab Order: Cardiac Injury Profile; SPEC'M 06/07/16 12:19 Test: CPK CREATINE PHOSPHOKINASE; Value: 66; Range: 39-308; Units: U/L; Status: F Test: CK-MB VALUE MASS; Value: 2.0; Range: 0.0-3.6; Units: NG/ML; Status: F Test: MB/CK RELATIVE INDEX; Value: 3.03; Range: < OR =4; Status: F Test Note: ; DIAGNOSIS CRITERIA MMB ng/ml Relative Index (RI) NON-AMI < or = 5 N/A HUITRON ZONE > 5 < or = 4 AMI > 5 > 4 Lab Order: Troponin; SPEC'M 06/07/16 12:19 Test: TROPONIN I; Value: < 0.02; Range: < 0.10; Units: NG/ML; Status: F Test Note: ; Troponin I Reference Interval for [employer] LOCI: 99th Percentile= 0.00-0.045 ng/ml Risk Stratification: <= 0.10 ng/ml Decreased Risk for Adverse Clinical Events. 0.10-1.50 ng/ml Increased Risk for Adverse Clinical Events. Evaluation of additional criterion and/or repeat testing in 2-6 hours is suggested to rule out myocardial damage. >= 1.50 ng/ml Indicative of Myocardial Injury. Lab Order: TROPONIN; SPEC'M 06/07/16 16:55 Test: TROPONIN I; Value: < 0.02; Range: < 0.10; Units: NG/ML; Status: F Test Note: ; Troponin I Reference Interval for [employer] [place] LOCI: 99th Percentile= 0.00-0.045 ng/ml Risk Stratification: <= 0.10 ng/ml Decreased Risk for Adverse Clinical Events. 0.10-1.50 ng/ml Increased Risk for Adverse Clinical Events. Evaluation of additional criterion and/or repeat testing in 2-6 hours is suggested to rule out myocardial damage. >= 1.50 ng/ml Indicative of Myocardial Injury. Radiology Order: Chest, 1 View Test: Chest, 1 View REASON FOR EXAMINATION: Cough; Chest one-view; ; HISTORY: Cough; ; Comparison: 05/31/2016; ; The lungs are clear. The cardiac silhouette is enlarged. The pulmonary; vasculature is normal in appearance.; ; Impression: Cardiomegaly.; ; ; Signed by; Sage Garrett MD 06/07/2016 12:08 P; Radiology Order: CT Chest without contrast Test: CT Chest without contrast REASON FOR EXAMINATION: Chest Pain; CT STUDY OF THE CHEST WITHOUT CONTRAST:; ; HISTORY: Chest pain.; ; Comparison is made with chest CT study done with contrast on April 16, 2016.; ; CT FINDINGS: Thoracic aorta is fairly heavily calcified as are the coronary; arteries and the great vessel origins. No aneurysm or mural thickening is seen; in the aorta. There is no evidence of pleural effusion. There is a small; quantity of pericardial fluid. This is slightly larger than on the April 162015 study. No hilar or mediastinal mass or adenopathy is observed.; ; Lung window settings show an area of discoid atelectasis in the lingula and an; area of minimal linear fibrosis in the right middle lobe. There are some; interstitial changes in the upper lobes bilaterally mild in degree. There is a; calcified granuloma in the left upper lobe. There are several tiny scattered; granulomatous calcifications in the right lung. There is a small 3 mm area of; pleural thickening at the major fissure adjacent to the posterior mediastinum on; the right unchanged. No significant pulmonary nodule is appreciated. No; tracheobronchial lesion is seen. There are degenerative changes diffusely in the; thoracic spine. No bony destructive lesion is appreciated.; ; IMPRESSION: Extensive vascular calcification. Linear fibrosis and granulomatous; calcifications. Discoid atelectasis in the lingula. Some chronically increased; interstitial markings. No other acute abnormality.; ; ; Signed by; Guevara Presley MD 06/07/2016 06:37 P; Outcome: 14:59 Decision to Hospitalize by Provider. fg 17:26 No special radiology studies were completed. dsf 19:13 Discharge Assessment: Patient awake, alert and oriented x 3. No cognitive and/or af2 functional deficits noted. Patient verbalized understanding of disposition instructions. patient administered narcotics - no. The following High Risk Discharge criteria are identified: None. Admitted to PCU accompanied by nurse, accompanied by tech, via stretcher, on monitor, with chart. Condition: stable. Property :Personal belongings accompany Pt. 19:28 Admission hand-off: Other: This job specification writer called PCU to see if they are ready to accept af2 pt. Informed by that bed is dirty. . 20:17 Patient left the ED. cz Signatures: Dispatcher [employer] EDDenae Santana RN RN Harshal Burns, RN RN cz Donna Ray, Reg Reg gb Joyce Mejia, Reg Reg lg BeLuz tellez,RN RN Bianka De La CruzRN RN dsf Edmundo Lu, ONCOLOGY REGISTRAR ONCOLOGY REGISTRAR jrd Jame Aguayo,RN RN mb9 Ena Tatum, ONCOLOGY REGISTRAR ONCOLOGY REGISTRAR rs6 Dariana Chan RN RN af2 Luisa Biswas MD MD fg Crane, Kelsi,TAVO RN bruno3 Ceci Escobedo, ONCOLOGY REGISTRAR ONCOLOGY REGISTRAR bnb Corrections: (The following items were deleted from the chart) 19:00 13:40 Pulse 70bpm; Monitor; Pulse Ox 75%; dsf dsf 20:06 19:54 Pulse 72bpm; MonitorResp 18bpm; Spontaneous; Pulse Ox 96% 2 lpm Nasal Cannula; [id number] Chart Complete MTDD
--- NOTE | 2016-06-09 21:18 | EDDOCDS ---
Physician Documentation [facility] Name: Artemio Alberto Age: 71 yrs Sex: Male : 1945 Arrival Date: 06/07/2016 Time: 11:20 Bed Admit Hold Private MD: Disposition: 06/07/16 14:59 Hospitalization ordered by Maria Eugenia Dolan for Inpatient Admission. Preliminary diagnosis are Shortness of breath, Hypo-osmolality and hyponatremia, Injury of kidney. - Bed requested for PCU. - Status is Inpatient Admission. cz - Condition is Stable. - Problem is new. - Symptoms have improved. Historical: - Allergies: Augmentin; Ceftin; Levofloxacin; PENICILLINS; - Home Meds: 1. 2L NC 2. Ranexa 1,000 mg oral Tb12 1 tab 2 times per day 3. Plavix 75 mg Oral tab 1 tab once daily 4. Novolog sliding scale Sub-Q 4 times a day 5. DuoNeb 0.5 mg-3 mg(2.5 mg base)/3 mL Inhl nebu 6. Ventolin HFA 90 mcg/actuation Nebulizer HFAA 2 puffs as needed 7. atorvastatin 80 mg oral tab 1 tab once daily 8. duloxetine 90 mg Oral cpDR 1 cap once daily 9. lisinopril 5 mg Oral tab 1 tab once daily 10. Advair Diskus 500-50 mcg/dose Inhl dsdv 1 puff 2 times per day 11. Lantus 50 units Sub-Q twice a day 12. isosorbide dinitrate 30 mg Oral tab 2 tabs 2 times per day 13. Prilosec 20 mg Oral cpDR 1 cap 2 times per day 14. NitroQuick 0.4 mg SL subl 1 tab as needed 15. cpap 16. Lasix 40 mg Oral tab 2 tabs 2 times per day 17. spironolactone 25 mg Oral tab 1 tab once daily 18. metoprolol tartrate 25 mg Oral tab 1 tab 2 times per day 19. metolazone 2.5 mg oral tab 1 tab take one tab every other day 20. Prednisolone 10 mg Oral 3 tabs once daily taper dose 21. doxycycline hyclate 100 mg Oral tab 1 tab every 12 hours - PMHx: COPD; Depression; Diabetes - IDDM: uncontrolled; GERD; Hypercholesterolemia; Hypertension; - PSHx: Cardiac stents; Cholecystectomy; - Social history: Smoking status: Patient states former smoker of tobacco. No barriers to communication noted, The patient speaks fluent Guamanian. - Family history: Not pertinent. - : The pt / caregiver states he / she is on anticoagulants: Plavix. Home medication list is obtained from patients' pharmacy. - Exposure Risk Screening:: None identified. Vital Signs: 06/07 11:28 BP 114 / 76 (auto/); dsf 11:29 Pulse Ox 94% ; dsf 11:34 BP 114 / 76; Pulse 71; Resp 20; Temp 96.8(O); Pulse Ox 95% on R/A; Weight 122.02 kg / kc3 269.01 lbs (R); Height 5 ft. 8 in. (172.72 cm); 11:44 Pulse 72 MON; Pulse Ox 93% ; dsf 11:46 BP 114 / 59 (auto/); dsf 12:35 Pulse 66 MON; Pulse Ox 94% ; dsf 12:40 BP 106 / 58 (auto/); dsf 12:40 Pulse Ox 94% ; dsf 12:54 Pulse 66 MON; Pulse Ox 92% ; dsf 12:55 BP 94 / 54 (auto/); dsf 13:10 BP 96 / 56 (auto/); dsf 13:16 Pulse 68 MON; Pulse Ox 90% ; dsf 13:36 BP 98 / 54 (auto/); dsf 13:38 Pulse 68 MON; Pulse Ox 96% ; dsf 13:40 BP 109 / 57 (auto/); dsf 13:40 Pulse 70 MON; dsf 13:55 BP 98 / 55 (auto/); dsf 13:55 Pulse 70 MON; Pulse Ox 94% ; dsf 14:10 BP 114 / 72 (auto/); dsf 14:10 Pulse 68 MON; Pulse Ox 95% ; dsf 14:23 Pulse 68 MON; Pulse Ox 93% ; dsf 14:25 BP 117 / 76 (auto/); dsf 14:40 BP 93 / 60 (auto/); dsf 14:40 Pulse 68 MON; Pulse Ox 97% ; dsf 16:23 BP 117 / 67 (auto/); dsf 16:24 Pulse 68 MON; Resp 20; Temp 95.2(T); Pulse Ox 97% 2 lpm ; Pain 0/10; dsf 17:15 BP 126 / 65 LA Sitting (auto/lg); Pulse 68; Resp 20; Temp 96.5; Pulse Ox 95% on R/A; bnb Pain 0/10; 18:23 BP 128 / 87 (auto/); af2 18:23 Pulse 72 MON; Resp 18 S; Pulse Ox 96% on 2 lpm NC; af2 18:38 BP 130 / 74 (auto/); af2 18:38 Pulse 66 MON; Pulse Ox 95% ; af2 18:53 BP 137 / 75 (auto/); af2 18:53 Pulse 68 MON; Resp 18 S; Pulse Ox 92% on 2 lpm NC; af2 19:23 BP 114 / 66 (auto/); af2 19:23 Pulse 68 MON; Resp 18 S; Pulse Ox 96% on 2 lpm NC; af2 19:38 BP 125 / 74 (auto/); af2 19:38 Pulse 68 MON; Resp 18 S; Pulse Ox 92% on 2 lpm NC; af2 19:53 BP 126 / 67 (auto/); af2 19:54 Pulse 72 MON; Resp 18 S; Temp 96.9(O); Pulse Ox 96% on 2 lpm NC; af2 11:34 Body Mass Index 40.90 (122.02 kg, 172.72 cm) kc3 MDM: 11:28 -Blood Culture (Adults Only), peripheral from different site, or from device/port/PICC fg etc. if present ordered. 11:28 Sales Manager Prearranged [employer]/Pulse Ox/q 15 min VS ordered. fg 11:28 IV Saline Lock ordered. fg 11:28 Oxygen at 4L/Min NC or Home dosage ordered. fg 11:28 Rhythm Strip to chart ordered. fg 11:29 B-Type Natiuretic Peptide Ordered. EDMS 11:29 Basic Metabolic Profile Ordered. EDMS 11:29 CBC with Diff Ordered. EDMS 11:29 Cardiac Injury Profile Ordered. EDMS 11:29 Troponin Ordered. EDMS 11:29 -Blood Culture Ordered. EDMS 11:29 Chest, 1 View Ordered. EDMS 11:30 ECG WITH READING ER PHYS+CARDIAG ordered. EDMS 11:52 -Blood Culture (Adults Only), peripheral from different site, or from device/port/PICC jrd etc. if present complete. 11:53 BLOOD CULTURES Ordered. EDMS 13:14 Financial registration complete. lg 13:18 CT Chest without contrast Ordered. EDMS 13:19 [facility] Payment Agreement was scanned into [employer] and attached to record. lg 13:38 Ondansetron 4 mg IVP once ordered. fg 14:59 BED REQUEST+ADM ordered. EDMS 15:00 NS 0.9% 500 ml IV at bolus once ordered. fg 15:06 CONSISTENT CARBOHYDRATE+DIET ordered. EDMS 16:26 PHYSICAL THERAPY EVAL & TREAT ordered. EDMS 16:27 Admission / Observation Status ordered. EDMS 16:32 TROPONIN Ordered. EDMS 16:32 TROPONIN Ordered. EDMS 19:31 BASIC METABOLIC PROFILE Ordered. EDMS 19:31 COMPLETE BLOOD COUNT Ordered. EDMS 06/08 10:04 T-Sheet-- Draft Copy was scanned into [employer] and attached to record. gb 10:04 ECG/EKG was scanned into [employer] and attached to record. gb Point of Care Testing: Blood Glucose: 06/07 11:42 Blood Glucose: 208 mg/dL; mb9 Ranges: Administered Medications: 13:43 Drug: Ondansetron 4 mg [ondansetron HCl 2 mg/mL intravenous solution (2 mL)] Route: dsf IVP; Site: left wrist; 15:04 Drug: NS 0.9% 500 ml [sodium chloride 0.9 % injection solution] Route: IV; Rate: bolus; dsf Site: left wrist; 16:27 Follow up: IV Status: Completed infusion; IV Intake: 500ml dsf Signatures: Dispatcher MedHo EDGA Harshal Don RN RN cz Barnhardt, Gloria, Reg Reg gb Joyce Mejia, Reg Reg lg Edmundo Lu, ORACLE E BUSINESS DEVELOPER ORACLE E BUSINESS DEVELOPER d Jame Aguayo RN RN mb9 Dariana Chan RN RN af2 Andrea Kaur RN RN mts Gill, Frances, MD MD fg Fuller, Desiree RN dsf The chart was reviewed and I authenticate all verbal orders and agree with the evaluation and treatment provided.Corrections: (The following items were deleted from the chart) 13:18 11:55 CT ANGIO CHEST+CT ordered. EDGA EDMS Attachments: 13:19 [facility] Payment Agreement 06/08 10:04 T-Sheet-- Draft Copy gb 10:04 ECG/EKG gb Chart Complete MTDD
[2016-06-10] VITALS (8 sets, daily range): BP systolic 94–139; BP diastolic 53–88; PULSE 58–65
[2016-06-10] MEDS: NS 1,000 ML IV SCH (01:20)
[2016-06-10 05:40] LABS: MEAN CORPUSCULAR HEMOGLOBIN 29.5 pg (27.0-33.0); MEAN CORPUSCULAR HGB CONC 33.3 g/dl (32.0-36.5); MEAN CORPUSCULAR VOLUME 88.4 fl (80.0-96.0); RED CELL DISTRIBUTION WIDTH 14.3 % (11.5-14.5)
[2016-06-10 05:45] LABS: CALCIUM LEVEL 8.1 MG/DL (8.8-10.2); CREATININE FOR GFR 1.31 MG/DL (0.70-1.30); GLOMERULAR FILTRATION RATE 57.3 (>42); POTASSIUM SERUM 3.4 MEQ/L (3.5-5.1)
[2016-06-10] MEDS: ADVAIR DISKUS 500/50 INH PWD INH SCH ×2 (07:20→19:36)
[2016-06-10] MEDS ORDERED: POTASSIUM CHLORIDE 10 MEQ SR TABLET PO ONE (08:00)
[2016-06-10] MEDS: LEVEMIR (INSULIN DETEMIR) 1 UNITS/0.01ML SC SCH ×2 (08:19→21:00)
[2016-06-10] MEDS: HEPARIN SOD (PORCINE) 5000 UNITS/ML VIAL SC SCH ×2 (08:19→21:00)
[2016-06-10] MEDS: ATORVASTATIN 20 MG TAB PO SCH (08:20)
[2016-06-10] MEDS: HumaLOG INSULIN (NovoLOG) PER UNIT SC SCH ×4 (08:20→20:50)
[2016-06-10] MEDS: ASPIRIN 325 MG TAB PO SCH (08:21)
[2016-06-10] MEDS: ISOSORBIDE DIN. (ISORDIL) 30 MG TAB PO SCH ×2 (08:21→21:01)
[2016-06-10] MEDS: DULoxetine 30 MG CAP (CYMBALTA) PO SCH (08:22)
[2016-06-10] MEDS: OMEPRAZOLE 20 MG CAP PO SCH (08:24)
[2016-06-10] MEDS: RANOLAZINE 500 MG ER TAB PO SCH ×2 (08:24→21:01)
[2016-06-10] MEDS: guaiFENesin ER 600 MG TAB PO SCH ×2 (08:24→21:00)
[2016-06-10] MEDS: CLOPIDOGREL 75 MG TAB PO SCH (08:24)
[2016-06-10] MEDS: DOXYCYCLINE HYCLATE 100 MG TAB PO SCH ×2 (08:24→21:01)
[2016-06-10] MEDS: METOPROLOL TART 25 MG TABLET PO SCH ×2 (08:25→21:01)
[2016-06-10 08:28] LABS: ABG BASE EXCESS 0.6 (-2.0-2.0); ABG HCO3 25.1 MEQ/L (22.0-26.0); ABG PARTIAL PRESSURE CO2 40.3 mmHg (35.0-45.0); ABG PARTIAL PRESSURE O2 59.8 mmHg (75.0-100.0); ABG STANDARD HCO3 24.8 MEQ/L (22.0-26.0); ABG TOTAL CO2 26.4 MEQ/L (23.0-31.0); ABG pH (ARTERIAL) 7.413 UNITS (7.350-7.450)
[2016-06-10] MEDS ORDERED: predniSONE 20 MG TAB PO SCH (09:00)
[2016-06-11] VITALS (9 sets, daily range): BP systolic 108–160; BP diastolic 54–76
[2016-06-11 05:30] LABS: MEAN CORPUSCULAR HEMOGLOBIN 29.2 pg (27.0-33.0); MEAN CORPUSCULAR HGB CONC 32.5 g/dl (32.0-36.5); MEAN CORPUSCULAR VOLUME 89.8 fl (80.0-96.0); RED CELL DISTRIBUTION WIDTH 14.3 % (11.5-14.5); WHITE BLOOD COUNT 7.1 K/mm3 (4.0-10.0)
[2016-06-11 05:48] LABS: ANION GAP 7 MEQ/L (8-16); BLOOD UREA NITROGEN 22 MG/DL (7-18); CALCIUM LEVEL 8.2 MG/DL (8.8-10.2); CARBON DIOXIDE LEVEL 31 MEQ/L (21-32); CHLORIDE LEVEL 103 MEQ/L (98-107); GLOMERULAR FILTRATION RATE > 60.0 (>42); GLUCOSE, FASTING 116 MG/DL (83-110); POTASSIUM SERUM 3.8 MEQ/L (3.5-5.1); SODIUM LEVEL 141 MEQ/L (136-145)
[2016-06-11] MEDS: ADVAIR DISKUS 500/50 INH PWD INH SCH ×2 (07:24→19:48)
[2016-06-11] MEDS: LEVEMIR (INSULIN DETEMIR) 1 UNITS/0.01ML SC SCH ×2 (08:41→20:55)
[2016-06-11] MEDS: RANOLAZINE 500 MG ER TAB PO SCH ×2 (08:41→20:54)
[2016-06-11] MEDS: ATORVASTATIN 20 MG TAB PO SCH (08:42)
[2016-06-11] MEDS: CLOPIDOGREL 75 MG TAB PO SCH (08:42)
[2016-06-11] MEDS: DULoxetine 30 MG CAP (CYMBALTA) PO SCH (08:42)
[2016-06-11] MEDS: ASPIRIN 325 MG TAB PO SCH (08:42)
[2016-06-11] MEDS: HEPARIN SOD (PORCINE) 5000 UNITS/ML VIAL SC SCH ×2 (08:42→20:54)
[2016-06-11] MEDS: OMEPRAZOLE 20 MG CAP PO SCH (08:43)
[2016-06-11] MEDS: DOXYCYCLINE HYCLATE 100 MG TAB PO SCH ×2 (08:43→20:54)
[2016-06-11] MEDS: guaiFENesin ER 600 MG TAB PO SCH ×2 (08:43→20:54)
[2016-06-11] MEDS: SPIRONOLACTONE 25 MG TAB PO SCH (08:43)
[2016-06-11] MEDS: HumaLOG INSULIN (NovoLOG) PER UNIT SC SCH ×4 (08:51→20:44)
[2016-06-11] MEDS: LISINOPRIL *2.5 MG* TAB PO SCH (09:00)
[2016-06-11] MEDS: ISOSORBIDE DIN. (ISORDIL) 30 MG TAB PO SCH ×3 (09:00→20:56)
[2016-06-11] MEDS: FUROSEMIDE 20 MG TAB PO SCH ×2 (09:00→17:00)
[2016-06-11] MEDS: METOPROLOL TART 12.5 MG PER 1/2 TAB PO SCH ×3 (09:00→20:57)
[2016-06-11] MEDS ORDERED: FUROSEMIDE 40 MG/4 ML VIAL (J1940) IV ONE (10:00)
--- NOTE | 2016-06-11 23:57 | CR.PDOC ---
[facility] Consultation Consultation DATE OF CONSULTATION: 06/11/16 CONSULTATION REQUESTED BY: REASON FOR CONSULTATION: . RELEVANT HISTORY: . PAST PSYCHIATRIC HISTORY: PAST MEDICAL HISTORY: FAMILY HISTORY: Mother: Father: Siblings: Children: PERSONAL AND SOCIAL HISTORY: The patient was born and raised in [place]. 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 MENTAL STATUS EXAMINATION: Patient is a -year old male, who is [pleasant, cooperative, well kempt], [tall, overweight, thin, elderly, obese, frail build]. Speech: Is [pressured, tangential, circumstantial, flight of ideas, rate, volume, articulate, coherent, and spontaneous]. Thought processes: [Clear, Not goal-directed or Goal directed.] Rate of thoughts: . Thought content: [Irrational, Logical, Illogical, Tangential, Paranoid]. Abstract reasoning: . Computation: . Associations: [Loose, Tangential, Circumstantial, Intact]. Abnormal or psychotic thoughts: [Hallucinations, Delusions, Preoccupation with violence, Homicidal or suicidal ideation, and Obsessions.] Judgment: [Fair, Good, Very limited, Poor.] Insight: [Very limited, Good, Fair, Poor] Oriented to: [Time, place and person.] Recent and Remote Memory: [Immediate, short-term and long-term memory is intact] . Attention Span and Concentration: [Poor, Good, Fair]. Language: [Normal]. Fund of knowledge: [Adequate, Intact, Poor, Fair, Good]. Mood: [Irrational, Elated, Irritable, Depressed, Anxious, Restricted, Neutral]. Affect: [Appropriate, Reactive, Flat, Constricted, Animated, Irrational, Expansive, Restricted, Depressed, Anxious, Agitated, Hypomania, Lability]. DIAGNOSIS: 1. . PLAN: 1. . 2. . Vital Signs Vital Sign - Last 24 Hours 06/11/16 06/11/16 06/11/16 06/11/16 00:00 00:03 04:32 08:00 Temp 96.8 96.4 97.1 Pulse 66 57 54 Resp 18 18 20 B/P 108/57 122/70 138/63 Pulse Ox 98 96 94 O2 Delivery BIPAP/CPAP NIPPV (BIPAP/CPAP) NIPPV (BIPAP/CPAP) NIPPV (BIPAP/CPAP) 06/11/16 06/11/16 06/11/16 06/11/16 08:00 08:03 08:05 09:00 Pulse 57 60 B/P 128/69 129/65 138/63 O2 Delivery Nasal Cannula O2 Flow Rate 2.0 06/11/16 06/11/16 06/11/16 06/11/16 09:00 12:00 16:00 19:41 Temp 96.8 97.1 Pulse 54 91 69 Resp 18 20 B/P 160/76 130/57 Pulse Ox 97 94 O2 Delivery Nasal Cannula Nasal Cannula Nasal Cannula O2 Flow Rate 2.0 2.0 2.0 06/11/16 06/11/16 06/11/16 06/11/16 19:46 20:56 20:57 20:57 Temp 97.2 Pulse 70 74 Resp 20 B/P 128/69 128/69 128/69 Pulse Ox 93 O2 Delivery Nasal Cannula Nasal Cannula O2 Flow Rate 2.0 2.0 06/11/16 23:47 Temp 96.2 Pulse 77 Resp 18 B/P 125/54 Pulse Ox 98 O2 Delivery NIPPV (BIPAP/CPAP) Laboratory Data 24H Labs Laboratory Tests 2 06/11/16 05:08: Anion Gap 7L, B-Type Natriuretic Peptide 44.2, Blood Urea Nitrogen 22H, Creatinine 1.10, Sodium Level 141, Potassium Level 3.8, Chloride Level 103, Carbon Dioxide Level 31, Calcium Level 8.2L, Glomerular Filtration Rate > 60.0 06/11/16 11:59: Bedside Glucose (Misc Panel) 214H 06/11/16 16:53: Bedside Glucose (Misc Panel) 175H 06/11/16 20:40: Bedside Glucose (Misc Panel) 219H Home Medications Current Medications Current Medications Medications (Trade) Dose Ordered Sig/Sandi Route PRN Reason Start Time Stop Time Status Last Admin Dose Admin Acetaminophen 650 mg 650 mg Q8HP PRN PO PAIN / FEVER 06/08/16 20:45 07/08/16 20:44 06/08/16 21:00 Albuterol Sulfate (Proventil, Ventolin Hfa) 2 puff Q4HP PRN INH SHORTNESS OF BREATH 06/07/16 16:15 07/07/16 16:14 Aspirin (Aspirin) 325 mg DAILY PO 06/08/16 09:00 07/08/16 08:59 06/11/16 08:42 Atorvastatin Calcium (Lipitor) 80 mg DAILY PO 06/08/16 09:00 07/08/16 08:59 06/11/16 08:42 Clopidogrel Bisulfate (PLAVix) 75 mg DAILY PO 06/08/16 09:00 07/08/16 08:59 06/11/16 08:42 Dextrose (Dextrose 50%) 25 ml ASDIRECTED PRN IV SEE LABEL COMMENTS 06/07/16 16:30 07/07/16 16:29 Doxycycline Hyclate (Vibramycin) 100 mg BID PO 06/07/16 21:00 06/14/16 20:59 06/11/16 20:54 Duloxetine HCl (Cymbalta) 90 mg DAILY PO 06/08/16 09:00 07/08/16 08:59 06/11/16 08:42 Furosemide (Lasix) 20 mg BID@ PO 06/11/16 09:00 07/11/16 08:59 Glucagon (Glucagon) 1 mg ASDIRECTED PRN SC SEE LABEL COMMENTS 06/07/16 16:30 07/07/16 16:29 Glucose (Glucose) 16 GM ASDIRECTED PRN PO SEE LABEL COMMENTS 06/07/16 16:30 07/07/16 16:29 Guaifenesin (Mucinex) 600 mg BID PO 06/10/16 09:00 07/10/16 08:59 06/11/16 20:54 Heparin Sodium (Porcine) (Heparin) 5,000 units Q12H SC 06/07/16 21:00 06/16/16 20:59 06/11/16 20:54 Home Med (Med Rec Complete!) ASDIRECTED XX 06/07/16 16:15 06/07/16 17:07 DC Insulin Detemir (Levemir Insulin) 45 units BID SC 06/07/16 21:00 07/07/16 20:59 06/11/16 20:55 Insulin Human Lispro (HumaLOG INSULIN) See Protocol Table AC SC 06/07/16 17:30 07/07/16 17:29 06/11/16 17:30 Insulin Human Lispro (HumaLOG INSULIN) See Protocol Table QHS SC 06/07/16 21:00 07/07/16 20:59 06/09/16 21:11 Isosorbide Dinitrate (Isordil) 30 mg BID PO 06/11/16 09:00 07/11/16 08:59 Isosorbide Dinitrate (Isordil) 60 mg BID PO 06/07/16 21:00 06/11/16 07:49 DC 06/10/16 21:01 Lisinopril (Prinivil) 2.5 mg DAILY PO 06/11/16 09:00 07/11/16 08:59 Metoprolol Tartrate (Lopressor) 12.5 mg BID PO 06/11/16 09:00 07/11/16 08:59 Metoprolol Tartrate (Lopressor) 25 mg BID PO 06/07/16 21:00 06/11/16 07:49 DC 06/10/16 21:01 Nitroglycerin (Nitrostat (1/ 150)) 0.4 mg Q5MP PRN SL CHEST PAIN 06/07/16 16:15 07/07/16 16:14 Omeprazole (PriLOSEC) 20 mg DAILY PO 06/08/16 09:00 07/08/16 08:59 06/11/16 08:43 Ondansetron HCl (Zofran) 4 mg Q6HP PRN IV NAUSEA OR VOMITING 06/07/16 16:30 07/07/16 16:29 06/09/16 10:40 Prednisone (Deltasone) 10 mg DAILY PO 06/15/16 09:00 06/15/16 09:00 DC Prednisone (Deltasone) 20 mg DAILY PO 06/10/16 09:00 06/10/16 09:00 DC Prednisone (Deltasone) 30 mg DAILY PO 06/08/16 09:00 06/09/16 04:03 DC 06/08/16 09:44 Prednisone 5 mg 5 mg DAILY PO 06/20/16 09:00 06/24/16 09:01 Ranolazine (Ranexa) 1,000 mg BID PO 06/07/16 21:00 07/07/16 20:59 06/11/16 20:54 Salmeterol Xinafoate/ Fluticasone (Advair Diskus 500/50) 1 puff BID INH 06/07/16 21:00 2/24/17 20:59 06/11/16 19:48 Sodium Chloride (Nacl 0.9%) 1,000 ml @ 60 mls/hr [id number] IV 06/07/16 17:00 06/07/16 21:35 DC 06/07/16 21:16 Sodium Chloride (Nacl 0.9%) 1,000 ml @ 60 mls/hr [id number] IV 06/07/16 21:15 06/08/16 13:54 DC 06/08/16 12:03 Sodium Chloride (Nacl 0.9%) 1,000 ml @ 75 mls/hr [id number] IV 06/09/16 12:00 06/10/16 08:47 DC 06/10/16 01:20 Spironolactone 25 mg 25 mg Q2D PO 06/09/16 09:00 07/09/16 08:59 06/11/16 08:43 Scheduled Aspirin (Aspirin) 325 Mg Tab 325 MG PO DAILY (Reported) Atorvastatin Calcium (Atorvastatin Calcium) 80 Mg Tab 80 MG PO DAILY (Reported ) Clopidogrel Bisulfate (Clopidogrel) 75 Mg Tab 75 MG PO DAILY (Reported) Doxycycline Hyclate (Doxycycline Hyclate) 100 Mg Tab 100 MG PO BID (Reported) FILLED 05/31/16 FOR 10 DAYS Duloxetine Hcl (Duloxetine HCl) 30 Mg Cap 90 MG PO DAILY (Reported) Furosemide (Furosemide) 40 Mg Tab 80 MG PO BID (Reported) Insulin Aspart (Novolog Flexpen) 100 Unit/Ml Inj 0 SC ACHS (Reported) PER SLIDING SCALE Insulin Glargine (Lantus) 1 Units/0.01 Ml Susp 45 UNITS SC BID (Reported) Isosorbide Dinitrate (Isosorbide Dinitrate) 30 Mg Tab 60 MG PO BID (Reported) Lisinopril (Lisinopril) 5 Mg Tab 5 MG PO DAILY (Reported) Metolazone (Metolazone) 2.5 Mg Tab 2.5 MG PO Q2D (Reported) Metoprolol Tartrate (Metoprolol Tartrate) 25 Mg Tab 25 MG PO BID (Reported) Omeprazole (Prilosec) 20 Mg Cap 20 MG PO DAILY (Reported) Prednisone (Prednisone) 10 Mg Tab 30 MG PO ASDIRECTED (Reported) TAPER DOSE - SEE COMMENTS Ranolazine (Ranexa) 1,000 Mg Tab 1,000 MG PO BID (Reported) Salmeterol/Fluticasone (Advair Diskus 500-50 Mcg/Dose) 28 Puff/Inhaler Aerp 1 PUFF INH BID (Reported) Spironolactone (Spironolactone) 25 Mg Tab 25 MG PO Q2D (Reported) Scheduled PRN Albuterol Sulfate (Ventolin Hfa) 200 Puff/8 Gm Aers 2 PUFF INH Q4H PRN PRN SHORTNESS OF BREATH (Reported) Nitroglycerin (Nitrostat) 0.4 Mg Subl 0.4 MG SL Q5MP PRN PRN CHEST PAIN ( Reported) Allergies Coded Allergies: Cephalosporins (Verified Allergy, Mild, RASH ON CEFTIN, 01/29/13) Levofloxacin (Verified Allergy, Mild, RASH, 01/29/13) Penicillins (Verified Allergy, Mild, RASH ON AUGMENTIN, 01/29/13) Clavulanic Acid (Verified Allergy, Unknown, 08/19/12) Penicillins Cross Reactors (Verified Allergy, Unknown, RASH ON AUGMENTIN, 01/29/13) DORY LOMELI MD Jun 11, 2016 23:57
[2016-06-12 05:29] VITALS: BP 114/58
[2016-06-12 05:35] LABS: MEAN CORPUSCULAR HEMOGLOBIN 29.1 pg (27.0-33.0); MEAN CORPUSCULAR HGB CONC 32.4 g/dl (32.0-36.5); RED CELL DISTRIBUTION WIDTH 13.2 % (11.5-14.5); WHITE BLOOD COUNT 7.7 K/mm3 (4.0-10.0)
[2016-06-12 05:54] LABS: ANION GAP 8 MEQ/L (8-16); BLOOD UREA NITROGEN 22 MG/DL (7-18); CARBON DIOXIDE LEVEL 27 MEQ/L (21-32); CHLORIDE LEVEL 103 MEQ/L (98-107); CREATININE FOR GFR 1.05 MG/DL (0.70-1.30); GLOMERULAR FILTRATION RATE > 60.0 (>42); GLUCOSE, FASTING 161 MG/DL (83-110); POTASSIUM SERUM 3.4 MEQ/L (3.5-5.1); SODIUM LEVEL 138 MEQ/L (136-145)
[2016-06-12] MEDS: ADVAIR DISKUS 500/50 INH PWD INH SCH ×2 (07:25→20:23)
[2016-06-12] MEDS ORDERED: POTASSIUM CHLORIDE 10 MEQ SR TABLET PO ONE (07:30)
[2016-06-12 08:00] VITALS: BP 119/75
[2016-06-12] MEDS: LEVEMIR (INSULIN DETEMIR) 1 UNITS/0.01ML SC SCH ×2 (08:29→21:01)
[2016-06-12] MEDS: HEPARIN SOD (PORCINE) 5000 UNITS/ML VIAL SC SCH ×2 (08:29→21:02)
--- NOTE | 2016-06-12 08:29 | REP ---
Portable chest, single AP view, patient sitting: Comparison is 06/09/2016. The discoid atelectasis noted inferiorly on the left previously has resolved. Lung rosales are clear. Cardiac size upper normal, unchanged. The ted, mediastinum, bony thorax are unchanged unremarkable for portable positioning. Impression: No acute cardiopulmonary findings. Signed by Ariel Gordillo MD 06/10/2016 08:20 A
[2016-06-12] MEDS: HumaLOG INSULIN (NovoLOG) PER UNIT SC SCH ×4 (08:30→20:51)
--- NOTE | 2016-06-12 08:30 | IPN ---
DATE: 06/10/2016 The patient is seen and examined at the bedside. Chart has been reviewed. According to the family, the patient had worsening owning yesterday, increasingly agitated, trying to remove his peripheral line. According to the daughter, the patient was staring at her for a few minutes before recognizing who she was. The patient continues to hear auditory hallucinations with organ music singing Silent Night. He has had very little sleep last night, according to the , as he was very angry with her and agitated. No medications had to be given to settle him down, but it took quite a bit of reorienting. This morning, he is seen and examined. He is disoriented to time, states that it is June and was able to say his name and where he was at [facility] in [place]. PHYSICAL EXAMINATION: VITALS: Temperature 96.5, pulse 61, respiratory rate 20, blood pressure 125/60, 93% on 2 liters nasal cannula. LUNGS: Clear to auscultation. No wheezing, rales or rhonchi. HEART: S1, S2, sinus rhythm. ABDOMEN: Obese, soft, nontender, nondistended. EXTREMITIES: Chronic edema 1+ pitting. LABORATORY DATA: White count 8, hemoglobin 14, hematocrit 42, platelet count 166. Sodium 137, potassium 3.4, chloride 101, bicarbonate 26, BUN 35, creatinine 1.31 , glucose 149. Arterial blood gas showing pH of 7.4, CO2 of 40, O2 of 59.8. BNP of 34, ammonia level is 15. Chest x-ray on 06/09/2016 with no acute disease. ASSESSMENT AND PLAN: This is a 71-year-old male with history of diastolic heart failure on echo in the fall of 2014, coronary artery disease, diabetes, hypertension, chronic obstructive pulmonary disease, sleep apnea on chronic continuous positive airway pressure (CPAP), dyslipidemia, baseline creatinine of 1.4 to 1.6, hypertension, depression, cardiac stents, cholecystectomy, former smoker, on chronic Lasix 40 twice a day, recently increased to 80 mg twice a day , who presented to the emergency room on 06/07/2016 complaining of weakness, nausea with worsening shortness of breath, initially treated as outpatient for bronchitis with doxycycline and steroid taper, was found in the emergency room to have acute on chronic renal failure, baseline creatinine 1.4 with presenting creatinine of 2.44. Since then, the patient's LAMIN inhibitor and diuretic have been held. He has been given intravenous fluids and currently has the following issues: 1. Acute on chronic renal failure. The patient has improved significantly on intravenous fluids. He is now currently back to his baseline. We will monitor for decompensation. Currently, chest x-ray on 06/09/2016 was negative for fluid overload or pulmonary edema. The patient's BNP is less than 100. Input and output have been adequate. 2. Hyponatremia, most likely secondary to overdiuresis with Lasix and LAMIN inhibitor. Patient has been placed on normal saline with normal sodium level at the moment. 3. Chronic obstructive pulmonary disease. Close to baseline. Tapered dose of prednisone, doxycycline and inhalers. 4. History of coronary artery disease, congestive heart failure. Currently compensated. He is currently on Lipitor, Plavix, isosorbide, metoprolol, Ranexa , nitroglycerin. 5. Obstructive sleep apnea. On CPAP. 6. Insulin dependent diabetes. Sliding scale. Home dose of long acting insulin. Consistent carbohydrate diet. 7. Hypertension. Continue antihypertensives. Appears to be in good control. 8. Deep vein thrombosis prophylaxis. Subcutaneous heparin. 9. Dyslipidemia. On statin. 10. Acute delirium. The patient continues to have auditory and currently visual hallucinations, as well as sundowning this evening with increased agitation. Metabolic causes have been ruled out. Ammonia level is 15, salicylate is less than 2. Arterial blood gas showed normal CO2 level. Per the family, the patient has had a fall around Christmastime. Therefore, we will obtain CT of the head to rule out chronic bleed. We will consult psychiatry, Dr. Guevara, to look for psychiatric reason for patient's acute mental status change. However, as I have discussed with the family, this is most likely acute delirium. [facility]
--- NOTE | 2016-06-12 08:30 | REP ---
CT of the brain without IV contrast: Comparison is 02/06/2015. There is no subdural or epidural hematoma. There is no hemorrhage. There is no edema, mass effect or midline shift. The cortical stripe is unremarkable. The sulci and ventricles are dilated compatible with diffuse volume loss. 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 This is unchanged. There is no significant interval change. Signed by Ariel Gordillo MD 06/10/2016 10:12 A
[2016-06-12] MEDS: CLOPIDOGREL 75 MG TAB PO SCH (08:31)
[2016-06-12] MEDS: ATORVASTATIN 20 MG TAB PO SCH (08:32)
[2016-06-12] MEDS: RANOLAZINE 500 MG ER TAB PO SCH ×2 (08:32→21:01)
[2016-06-12] MEDS: DOXYCYCLINE HYCLATE 100 MG TAB PO SCH ×2 (08:32→21:01)
[2016-06-12] MEDS: ASPIRIN 325 MG TAB PO SCH (08:33)
[2016-06-12] MEDS: OMEPRAZOLE 20 MG CAP PO SCH (08:33)
[2016-06-12] MEDS: guaiFENesin ER 600 MG TAB PO SCH ×2 (08:33→21:01)
[2016-06-12] MEDS: DULoxetine 30 MG CAP (CYMBALTA) PO SCH (08:33)
--- NOTE | 2016-06-12 08:33 | IPN ---
DATE: 06/11/2016 This morning patient complains of feeling fullness in bilateral ears, decreased in hearing. Organ music has since disappeared as well as the voices of a choir singing Silent Night. Patient was able to sleep a little bit better last night per the at the bedside. He still complains of some congestion and cough with white sputum this morning. No worsening shortness of breath. Temperature 97.1, pulse 54 sinus, respiratory rate 20, blood pressure 138/63, 94 % on bilevel positive airway pressure (BiPAP). Generally, awake, alert, oriented times three. No jugular venous distention (JVD). Lungs diminished, fine crackles at the bases. Heart: S1, S2, sinus bradycardia. Tympanic membranes are clear. No erythema or bulging. No cerumen bilaterally. No thyromegaly. Abdomen is obese, soft, nontender, nondistended. Extremities: Chronic 2+ pitting edema. White count 7.1, hemoglobin 13, hematocrit 42, platelet count 161. Sodium 141, potassium 3.8, chloride 103, BUN 31, creatinine 1.1, and glucose of 116. BNP of 44.2. ASSESSMENT AND PLAN: This is a 71-year-old male with history of diastolic heart failure on echo in the fall of 2014, coronary artery disease (CAD), diabetes, hypertension, chronic obstructive pulmonary disease (COPD), dyslipidemia, chronic kidney disease stage III, obstructive sleep apnea on continuous positive airway pressure (CPAP),hypertension, depression, cardiac stents, cholecystectomy, former smoker, on chronic Lasix 40 mg twice a day, recently increased to 80 mg twice a day, presented to the emergency room (ER) 06/07/2016 with weakness, nausea with worsening shortness of breath, treated as outpatient for bronchitis with doxycycline and steroid taper for chronic obstructive pulmonary disease by his hand booked folder and stitcher, Dr. Crespo. Patient was recently seen by Dr. 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 Current issues were acute on chronic renal failure with a creatinine of 2.44 on admission to current creatinine, which is normal currently. Diuretics have been held as well as angiotensin-converting enzyme (LAMIN) inhibitor. IMPRESSION: 1. Acute on chronic renal failure, resolved. Patient has improved on IV fluids. Most likely secondary to dehydration due to Lasix, due to history of heart failure. Now that the kidneys are back to normal will resume low dose of Lasix and LAMIN inhibitor. 2. Hyponatremia secondary to overdiuresis, resolved. 3. Chronic obstructive pulmonary disease. Currently at baseline. On tapering dose of prednisone and doxycycline. Will check a chest x-ray. 4. History of coronary artery disease. No acute ischemia. Compensated. On Lipitor, Plavix, isosorbide, metoprolol, Ranexa, and nitroglycerin. 5. Sleep apnea. On CPAP. 6. Insulin dependent diabetes. Long-acting insulin, consistent carbohydrate diet and sliding scale. 7. Hypertension. Continue on antihypertensives. 8. Deep venous thrombosis (DVT) prophylaxis. Subcutaneous heparin. 9. Dyslipidemia. On statin. 10. Acute encephalopathy most likely metabolic and acute delirium due to renal failure, hyponatremia. Patient has improved slightly. He has normal ammonia level, still with normal salicylate. Psychiatric evaluation was done by Dr. Guevara with no further recommendations. 11. Orthostasis. Patient has been receiving intravenous fluids check vital with orthostatics and hold patient's lisinopril and Lasix if positive orthostasis. MTDD
[2016-06-12] MEDS: METOPROLOL TART 12.5 MG PER 1/2 TAB PO SCH ×2 (08:34→21:02)
[2016-06-12] MEDS: ISOSORBIDE DIN. (ISORDIL) 30 MG TAB PO SCH ×2 (08:34→21:02)
[2016-06-12] MEDS: LISINOPRIL *2.5 MG* TAB PO SCH (08:35)
[2016-06-12 10:31] VITALS: BP 148/78
--- NOTE | 2016-06-12 11:12 | REP ---
PA and lateral chest: Comparison is 06/10/2016. Cardiac size is upper normal. The lung rosales are clear. The ted, mediastinum, and bony thorax are unremarkable. Impression: Negative PA and lateral chest. Signed by Ariel Gordillo MD 06/11/2016 10:37 A
--- NOTE | 2016-06-12 11:57 | IPN ---
DATE: 06/12/2016 The patient seen and examined at the bedside. The chart has been reviewed. The patient denies any auditory or visual hallucinations. Still with persistent cough productive of white sputum. Temperature 96.7, pulse 64, respiratory rate 18, blood pressure 119/77 and 98% on 2 liters nasal cannula. Generally, awake, alert, oriented times three, answering questions appropriately. No jugular venous distention. Lungs are clear to auscultation. No wheezing, rales or rhonchi. Heart: S1, S2. Regular. Abdomen: Soft. Nontender. Nondistended. Positive bowel sounds. Extremities: Decreased edema 1+. LAB DATA/IMAGING STUDIES/MICROBIOLOGY: Have been reviewed. ASSESSMENT AND PLAN: 71-year-old male with history of diastolic heart failure, coronary artery disease (CAD), diabetes, chronic obstructive pulmonary disease (COPD), dyslipidemia, chronic kidney disease, obstructive sleep apnea on CPAP, hypertension, depression, coronary stents, cholecystectomy, and former smoker who presented to the emergency room with acute on chronic renal failure. CURRENT ISSUES: 1. Acute on chronic renal failure, resolved. Patient has improved on IV fluids. Currently euvolemic with no signs of congestive heart failure (CHF). The patient has been receiving his home medications at decreased dose. Will titrate accordingly. Check for orthostatics. If orthostatic, decrease doses. 2. Hyponatremia secondary to over diuresis, resolved. 3. COPD, at baseline, on tapering dose of prednisone, doxycycline as outpatient. 4. History of coronary artery disease, no acute symptoms of ischemia. On Lipitor, Plavix, isosorbide, metoprolol, Ranexa and nitroglycerin. 5. Sleep apnea, on CPAP. 6. Insulin dependent diabetes, on long acting insulin. Consistent carbohydrate diet. Sliding scale. 7. Hypertension, on antihypertensive. 8. Dyslipidemia, on statin. 9. Acute encephalopathy, has acute delirium, metabolic most likely, improved. Psychiatric evaluation done by Dr. Guevara, no further recommendation. 10. Orthostasis. Patient has received IV fluids. 11. Disposition. May transfer to medical-surgical floor. Await physical therapy (PT) clearance and titration of medications. May discharge in the morning.
[2016-06-12 14:00] VITALS: BP 135/66
[2016-06-12 22:00] VITALS: BP 145/83
[2016-06-12 22:30] VITALS: BP 120/72
[2016-06-13 04:00] VITALS: BP 103/69
[2016-06-13 07:06] LABS: MEAN CORPUSCULAR HEMOGLOBIN 29.5 pg (27.0-33.0); MEAN CORPUSCULAR HGB CONC 32.5 g/dl (32.0-36.5); MEAN CORPUSCULAR VOLUME 90.6 fl (80.0-96.0); RED CELL DISTRIBUTION WIDTH 14.3 % (11.5-14.5); WHITE BLOOD COUNT 11.2 K/mm3 (4.0-10.0)
[2016-06-13 07:36] LABS: ANION GAP 7 MEQ/L (8-16); BLOOD UREA NITROGEN 16 MG/DL (7-18); CALCIUM LEVEL 8.4 MG/DL (8.8-10.2); CARBON DIOXIDE LEVEL 30 MEQ/L (21-32); CHLORIDE LEVEL 106 MEQ/L (98-107); CREATININE FOR GFR 1.11 MG/DL (0.70-1.30); GLOMERULAR FILTRATION RATE > 60.0 (>42); GLUCOSE, FASTING 123 MG/DL (83-110); POTASSIUM SERUM 4.5 MEQ/L (3.5-5.1); SODIUM LEVEL 143 MEQ/L (136-145)
[2016-06-13 08:00] VITALS: BP 132/72
[2016-06-13] MEDS: ADVAIR DISKUS 500/50 INH PWD INH SCH (08:39)
[2016-06-13] MEDS ORDERED: SPIRONOLACTONE 25 MG TAB PO SCH (09:00)
[2016-06-13] MEDS: ASPIRIN 325 MG TAB PO SCH (09:11)
[2016-06-13] MEDS: HumaLOG INSULIN (NovoLOG) PER UNIT SC SCH ×2 (09:11→12:58)
[2016-06-13] MEDS: DULoxetine 30 MG CAP (CYMBALTA) PO SCH (09:12)
[2016-06-13] MEDS: HEPARIN SOD (PORCINE) 5000 UNITS/ML VIAL SC SCH (09:12)
[2016-06-13] MEDS: METOPROLOL TART 12.5 MG PER 1/2 TAB PO SCH (09:13)
[2016-06-13] MEDS: ATORVASTATIN 20 MG TAB PO SCH (09:13)
[2016-06-13] MEDS: ISOSORBIDE DIN. (ISORDIL) 30 MG TAB PO SCH ×2 (09:13→09:20)
[2016-06-13] MEDS: CLOPIDOGREL 75 MG TAB PO SCH (09:14)
[2016-06-13] MEDS: OMEPRAZOLE 20 MG CAP PO SCH (09:14)
[2016-06-13] MEDS: LISINOPRIL *2.5 MG* TAB PO SCH (09:14)
[2016-06-13] MEDS: guaiFENesin ER 600 MG TAB PO SCH (09:14)
[2016-06-13] MEDS: DOXYCYCLINE HYCLATE 100 MG TAB PO SCH (09:15)
[2016-06-13] MEDS: RANOLAZINE 500 MG ER TAB PO SCH (09:15)
[2016-06-13 09:20] VITALS: BP 132/72
[2016-06-13] MEDS: LEVEMIR (INSULIN DETEMIR) 1 UNITS/0.01ML SC SCH (09:26)
[2016-06-13 12:00] VITALS: BP 168/82
[2016-06-13] MEDS ORDERED: METO12TA PO (13:11)
[2016-06-13] MEDS ORDERED: LISI25TA PO (13:11)
[2016-06-13] MEDS ORDERED: FURO40TA2 PO (13:11)
--- NOTE | 2016-06-13 17:50 | DSES ---
DATE OF ADMISSION: 06/07/2016 DATE OF DISCHARGE: 06/13/2016 PRIMARY CARE PROVIDER: Dr. Riley CONSULTANTS: Psychiatrist, Dr. Micha Guevara PROCEDURES: None. COMPLICATIONS: None. ADMISSION/DISCHARGE DIAGNOSES: 1. Acute on chronic renal failure. 2. Hyponatremia secondary to overdiuresis. 3. Chronic obstructive pulmonary disease (COPD). 4. History of coronary artery disease. 5. Delirium. 6. Sleep apnea, on continuous positive airway pressure (CPAP). 7. Insulin-dependent diabetes. 8. Hypertension. 9. Dyslipidemia. 10. Orthostasis. HOSPITALIZATION COURSE: The patient is a 71-year-old male who presented to [facility] on 06/07/2016 for generalized weakness and nausea. The patient has a history of increased diuretics, and during the admission the patient was found to have severe dehydration with acute kidney injury. The patient was admitted to the hospital. Diuretic was discontinued, and the patient was started on intravenous resuscitation. The patient's symptoms improved continuously with medical management; however, around 06/10/2016, the patient started having auditory hallucinations and abnormal behavior. Psychiatrist, Dr. Guevara, was consulted, and it was determined that the patient has acute delirium secondary to the patient's physical distress. The patient's symptoms recovered nicely with medical management. Gradually, the patient's medications were adjusted. On 06/13/2016, the patient is cleared by physical therapy (PT) and by the psychiatrist for discharge. OBJECTIVE: VITAL SIGNS: Temperature 98.4, pulse 81, respirations 18, blood pressure 132/72, pulse oximetry is 95% with 2 liters nasal cannula (which is the patient's baseline). WBC 11.1, hemoglobin 13, hematocrit 39.9, platelet count is 182. Sodium 143, potassium 4.5, chloride 106, carbon dioxide is 30, BUN 16, creatinine 1.1, GFR greater than 60, fasting glucose 123, calcium is 8.4. Microbiology: Blood cultures with no growth after 5 days. GI panel is negative. IMAGING STUDIES: Chest x-ray on 06/07/[address] of the chest on 06/07/2016 showed extensive vascular calcification, linear fibrosis and granulomatous calcifications. Discoid atelectasis in the lingula. Some chronically increased interstitial markings. No other acute abnormalities. CT of the head without contrast on 06/10/2016 showed old lacunar infarct in the left basal ganglia, unchanged. No significant interval changes. No subdural or epidural hematoma. No hemorrhages. No edema, mass effect or midline shift. DISCHARGE MEDICATIONS: - Lasix 40 mg by mouth daily - lisinopril 2.5 mg by mouth daily - metoprolol 12.5 mg by mouth twice a day - Ventolin two puff inhalation every 4 hours as needed - aspirin 325 mg by mouth daily - atorvastatin 88 mg by mouth daily - Plavix 75 mg by mouth daily - Duloxetine 90 mg by mouth daily - NovoLog insulin before food and nightly - Lantus 45 units subcutaneous twice a day - isosorbide dinitrate 60 mg by mouth twice a day - nitroglycerine 0.4 sublingual every 5 minutes as needed for chest pain - omeprazole 20 mg by mouth daily - prednisone on tapering dose - Ranexa 1000 mg by mouth twice a day - Advair Diskus one inhalation twice a day - spironolactone 25 mg by mouth every two days DISCHARGE INSTRUCTIONS: Discontinue line. Discharge home. Activity as tolerated. Consistent carbohydrate as tolerated. The should continue with steroid taper. The patient should followup with his primary care provider within one week. DISCHARGE TIME: Greater than 30 minutes. DISCHARGE CONDITION: Stable.
[2016-06-15] MEDS ORDERED: predniSONE 10 MG TAB PO SCH (09:00)
[2016-06-20] MEDS ORDERED: predniSONE 5 MG TAB PO SCH (09:00)
== END 2016-06-13 13:55 | disposition home or self-care (01) | DRG 682 ==
LOC: M ED 11:20 → M ED INP 16:21 → M PCU 20:13 → M MSPAV 06-12 10:07 → M PED 06-12 22:15
PROVIDERS: ADMIT Internal Medicine; ATTEND General Practice
DX: N17.9 Acute kidney failure, unspecified (principal); G93.41 Metabolic encephalopathy; E87.1 Hypo-osmolality and hyponatremia; I50.32 Chronic diastolic (congestive) heart failure; R44.0 Auditory hallucinations; R41.0 Disorientation, unspecified; R44.1 Visual hallucinations; J44.9 Chronic obstructive pulmonary disease, unspecified; N18.9 Chronic kidney disease, unspecified; K21.9 Gastro-esophageal reflux disease without esophagitis; I25.10 Atherosclerotic heart disease of native coronary artery without angina pectoris; F32.9 Major depressive disorder, single episode, unspecified; E87.6 Hypokalemia; I12.9 Hypertensive chronic kidney disease with stage 1 through stage 4 chronic kidney disease, or unspecified chronic kidney disease; E86.1 Hypovolemia; E78.5 Hyperlipidemia, unspecified; E11.9 Type 2 diabetes mellitus without complications; G47.33 Obstructive sleep apnea (adult) (pediatric); Z79.4 Long term (current) use of insulin; Z99.89 Dependence on other enabling machines and devices; Z79.899 Other long term (current) drug therapy; Z99.81 Dependence on supplemental oxygen; Z90.49 Acquired absence of other specified parts of digestive tract; T50.1X5A Adverse effect of loop [high-ceiling] diuretics, initial encounter; Z87.891 Personal history of nicotine dependence; Z95.9 Presence of cardiac and vascular implant and graft, unspecified; Z88.0 Allergy status to penicillin; Z88.1 Allergy status to other antibiotic agents

== ENCOUNTER → 2016-07-19 | Day surgery (SDC) | payer MEDICARE ==
[~2016-07-19] VITALS: Ht 172.7 cm; Wt 130.2 kg
[~2016-07-19] MED LIST changes: +ACETAMINOPHEN 325 MG TAB PO PRN; +ATOR1TAB18 PO; +AcetaZOLAMIDE 500 MG ER CAP PO ONE; +BSS with VANC/TOB/EPI for EYE CASES IR ONE; +CEFUROXIME 1MG/0.1ML INTRACAMERAL INJ As Ordered ONE; +CYCLOPENTOLATE 2% OPHTH SOLN As Ordered ONE; +CYCLOPENTOLATE 2% OPHTH SOLN OD ONE; +DOXY100T PO; +HEALON DUET (HEALON 10MG/ML 0.55ML & HEALON ENDOCOAT 30MG/ML 0.85ML) As Ordered ONE; +KETOROLAC 0.5% OPHTH SOLN OD ONE; +LIDOCAINE 1% SDV 5 ML VIAL As Ordered ONE; +LIDOCAINE 4% INJ 5 ML AMP OU ONE; +LISI25TA PO; +METO12TA PO; +METO25TA PO; +MIDAZOLAM INJ 2 MG/2 ML VIAL (J2250) As Ordered ONE; +MOXIFLOXACIN IN BSS 0.25MG/0.25ML INTRACAMERAL INJ (OR EYE ONLY)(J2280) As Ordered ONE; +OFLOXACIN 0.3 % (OCUFLOX) OPTH SOL 5ML As Ordered ONE; +PHENYLEPHRINE 2.5% OPHTH SOL 2ML As Ordered ONE; +PHENYLEPHRINE 2.5% OPHTH SOL 2ML OD ONE; +POVIDONE-IODINE 5% OPHTH PREP SOL 30ML As Ordered ONE; +PROPARACAINE 0.5% OPHTH SOL 15ML OD PRN; +TRIAMCINOLONE PRES FR 40 MG/ML 1ML(TRIESENCE)(OR EYE ONLY)(J3300 PER 1MG) As Ordered ONE; +TRIMETHOBENZAMIDE 300 MG CAP PO PRN; +TROPICAMIDE 1% OPHTH SOLN 2 ML As Ordered ONE; +TROPICAMIDE 1% OPHTH SOLN 2 ML OD ONE; +fentaNYL 100 MCG/2 ML INJECTION (J3010) As Ordered ONE
[2016-07-19 13:25] VITALS: BP 124/73
== END | disposition home or self-care (01) ==
LOC: M SDC 09:57
PROVIDERS: ATTEND Ophthalmology
DX: H26.9 Unspecified cataract (principal); I12.0 Hypertensive chronic kidney disease with stage 5 chronic kidney disease or end stage renal disease; E11.22 Type 2 diabetes mellitus with diabetic chronic kidney disease; I50.9 Heart failure, unspecified; E78.5 Hyperlipidemia, unspecified; I73.9 Peripheral vascular disease, unspecified; G47.30 Sleep apnea, unspecified; J44.9 Chronic obstructive pulmonary disease, unspecified; N18.6 End stage renal disease; K21.9 Gastro-esophageal reflux disease without esophagitis; E66.9 Obesity, unspecified; Z88.1 Allergy status to other antibiotic agents; Z79.899 Other long term (current) drug therapy; Z95.5 Presence of coronary angioplasty implant and graft; Z99.81 Dependence on supplemental oxygen
CPT/HCPCS: 66984; J2250; J2280; J3010; J3300; V2632

== ENCOUNTER → 2016-07-31 | Day surgery (SDC) | payer MEDICARE ==
[~2016-07-31] VITALS: Ht 172.7 cm; Wt 128.0 kg
[~2016-07-31] MED LIST changes: -CEFUROXIME 1MG/0.1ML INTRACAMERAL INJ As Ordered ONE; -CYCLOPENTOLATE 2% OPHTH SOLN As Ordered ONE; -CYCLOPENTOLATE 2% OPHTH SOLN OD ONE; +CYCLOPENTOLATE 2% OPHTH SOLN OS ONE; +D5W/0.2% SODIUM CHLORIDE 250 ML IV SCH; -KETOROLAC 0.5% OPHTH SOLN OD ONE; +KETOROLAC 0.5% OPHTH SOLN OS ONE; +LIDOCAINE W/EPINEPHRINE 1% 20ML VIAL As Ordered ONE; -OFLOXACIN 0.3 % (OCUFLOX) OPTH SOL 5ML As Ordered ONE; +OFLOXACIN 0.3 % (OCUFLOX) OPTH SOL 5ML OS ONE; -PHENYLEPHRINE 2.5% OPHTH SOL 2ML As Ordered ONE; -PHENYLEPHRINE 2.5% OPHTH SOL 2ML OD ONE; +PHENYLEPHRINE 2.5% OPHTH SOL 2ML OS ONE; -PROPARACAINE 0.5% OPHTH SOL 15ML OD PRN; +PROPARACAINE 0.5% OPHTH SOL 15ML OS PRN; -TROPICAMIDE 1% OPHTH SOLN 2 ML As Ordered ONE; -TROPICAMIDE 1% OPHTH SOLN 2 ML OD ONE; +TROPICAMIDE 1% OPHTH SOLN 2 ML OS ONE
[2016-07-31 10:30] VITALS: BP 143/71
== END | disposition home or self-care (01) ==
LOC: M SDC 07:49
PROVIDERS: ATTEND Ophthalmology
DX: H26.9 Unspecified cataract (principal); E11.9 Type 2 diabetes mellitus without complications; I10 Essential (primary) hypertension; I50.32 Chronic diastolic (congestive) heart failure; I27.89 Other specified pulmonary heart diseases; I73.9 Peripheral vascular disease, unspecified; K21.9 Gastro-esophageal reflux disease without esophagitis; Z99.81 Dependence on supplemental oxygen; J44.9 Chronic obstructive pulmonary disease, unspecified; Z79.82 Long term (current) use of aspirin; Z79.4 Long term (current) use of insulin; Z79.899 Other long term (current) drug therapy
CPT/HCPCS: 66984; J2250; J2280; J3010; J3300; V2632

== ENCOUNTER 2017-04-24 06:08 | Day surgery (SDC) | payer MEDICARE ==
[~2017-04-24 06:08] MED LIST changes: -*CPAPSUP; -*GLUCOMETE; -/ADVA50050; -/MOXI40TA; -ACCUPRIL40 PO; -ACETAMINOPHEN 325 MG TAB PO PRN; -ADV500INH INH; -ADVAIR200 INHALATION; -ADVAIR500 INHALATION; -ALBU17IN INH; -ALBUTEROL INHALATION; -ALDA25TA2; -ALDA25TA2 PO; -ALDACTON25 PO; -ASPI325T PO; -ATOR1TAB18 PO; -AcetaZOLAMIDE 500 MG ER CAP PO ONE; -BSS with VANC/TOB/EPI for EYE CASES IR ONE; -CALA180T; -CENTTAB PO; -CLOP75TA2 PO; -COLA100C PO; -COMBIN INH; -CPAP; -CYCLOPENTOLATE 2% OPHTH SOLN OS ONE; -CYMB60CA3 PO; -CYMBALTA PO; -D5W/0.2% SODIUM CHLORIDE 250 ML IV SCH; -DIAB5TAB; -DIABETA PO; -DOXY100T PO; -DOXY150C PO; -DULO1CAP2 PO; -DUONSOL; -DUONSOL INHALATION; -ECOT325T5; -F ACCUPRIL PO; -FURO40TA2 PO; -GLUC500T; -GLUCOPH500 PO; -GLUCOSE TEST; -GLYB5TAB5 PO; -HEALON DUET (HEALON 10MG/ML 0.55ML & HEALON ENDOCOAT 30MG/ML 0.85ML) As Ordered ONE; -HUMULIN 70/30; -HUMULIN703 SC; -HUMULINN SC; -INSULADS SC; -INSULANT SC; -ISORDIL; -ISORDIL PO; -ISOS10TA2 PO; -ISOS30TAB PO; -KETOROLAC 0.5% OPHTH SOLN OS ONE; -LANCMIS; -LASI40TA; -LASI80TA; -LASI80TA PO; -LASIX40 PO; -LIDOCAINE 1% SDV 5 ML VIAL As Ordered ONE; -LIDOCAINE 4% INJ 5 ML AMP OU ONE; -LIDOCAINE W/EPINEPHRINE 1% 20ML VIAL As Ordered ONE; -LIPI20TA; -LIPITOR20 PO; -LISI-538 PO; -LISI-542 PO; -LISI25TA PO; -LISI40TA; -LISI40TAB OR; -LISI5TAB PO; -LOPR100T; -LOPR100T PO; -LOPRESS100 PO; -LOPRESS50 PO; -LOVA20TA2 PO; -METF500T PO; -METFORM500 PO; -METO12TA PO; -METO25TA PO; -METO50TA2 PO; -METO5TAB2; -MICRONASE PO; -MIDAZOLAM INJ 2 MG/2 ML VIAL (J2250) As Ordered ONE; -MOXIFLOXACIN IN BSS 0.25MG/0.25ML INTRACAMERAL INJ (OR EYE ONLY)(J2280) As Ordered ONE; -NEXIUM40 PO; -NITR0.4S; -NITR4TASL SL; -NITROSTAT4 SL; -NOVOINJ SC; -NOVOINJ3 SC; -OFLOXACIN 0.3 % (OCUFLOX) OPTH SOL 5ML OS ONE; -OMEGCAP8 PO; -OMEP20CA3 PO; -OSEL75CA PO; -PEPCID20 PO; -PHENYLEPHRINE 2.5% OPHTH SOL 2ML OS ONE; -POVIDONE-IODINE 5% OPHTH PREP SOL 30ML As Ordered ONE; -PRED10TA PO; -PRED1TAB32 PO; -PRED5TAB PO; -PRIL20CA; -PRIL20CA9 PO; -PRILOSECOT PO; -PROPARACAINE 0.5% OPHTH SOL 15ML OS PRN; -PROV90AE; -PROVENTILI PO; -RANE1000 PO; -REGLAN10 PO; -REGLAN5 PO; -ROBITUSSIN; -SENO8.6T5; -SERT-138 PO; +SLF 3 ML SYR IV; -SPIR25TA2 PO; -STOOL SOFTENER; -THERGRAN; -TRIAMCINOLONE PRES FR 40 MG/ML 1ML(TRIESENCE)(OR EYE ONLY)(J3300 PER 1MG) As Ordered ONE; -TRIMETHOBENZAMIDE 300 MG CAP PO PRN; -TROPICAMIDE 1% OPHTH SOLN 2 ML OS ONE; -TYLE325T5 PO; -TYLE650T30 PO; -VERA120T2 PO; -ZESTRIL PO; -ZITH500T PO; -[UNRECOGNIZED DRUG - CODE] PO; -[UNRECOGNIZED DRUG - CODE] PO; -[UNRECOGNIZED DRUG - CODE] PO; -[UNRECOGNIZED DRUG - CODE] SUBQ; -[UNRECOGNIZED DRUG - OTHER] SC; -fentaNYL 100 MCG/2 ML INJECTION (J3010) As Ordered ONE; -robitussin PO
[2017-04-24] MEDS: LIDOCAINE 3.5 % 1ML OPHTH TOPICAL GEL OU (07:01)
[2017-04-24] MEDS: SLF 3 ML SYR IV (07:03)
[2017-04-24] MEDS: POVIDONE-IODINE 5% OPHTH PREP SOL 30ML As Ordered (08:23)
[2017-04-24] MEDS: LIDOCAINE 2% W/EPIN INJ 20ML **PRES FREE As Ordered (08:42)
[2017-04-24] MEDS ORDERED: LIDOCAINE 2% INJ 100 MG/5 ML SDV (FOR ANES.) As Ordered ×2 (08:44→10:56)
[2017-04-24] MEDS ORDERED: PROPOFOL 200 MG/20 ML VIAL As Ordered ×2 (08:44→10:56)
[2017-04-24] MEDS ORDERED: fentaNYL 100 MCG/2 ML INJECTION (J3010) As Ordered (08:44)
[2017-04-24] MEDS ORDERED: MIDAZOLAM INJ 2 MG/2 ML VIAL (J2250) As Ordered (08:44)
[2017-04-24] MEDS: TOBRADEX OPHTH OINT 3.5 GM As Ordered (09:24)
[2017-04-24] MEDS: TETRACAINE 0.5% OPHTH SOLN 4ML As Ordered (09:25)
[2017-04-24] MEDS ORDERED: ePHEDrine SULFATE 25 MG/5 ML(5MG/ML) SYRINGE As Ordered ×3 (10:56→13:10)
[2017-04-24] MEDS ORDERED: PHENYLephrine HCL 500 MCG/5 ML (100MCG/ML) SYRINGE (J2370) As Ordered ×3 (10:56→13:10)
[2017-04-24] MEDS ORDERED: ROCURONIUM BROMIDE 50 MG/5 ML VIAL As Ordered ×2 (10:56)
[2017-04-24] MEDS ORDERED: dexameTHASONE 4 MG/ML 1ML VIAL (J1100) As Ordered (10:57)
[2017-04-24] MEDS ORDERED: ONDANSETRON 4MG/2ML VIAL (J2405) As Ordered (10:57)
[2017-04-24] MEDS ORDERED: HYDROmorphone HCL 2 MG/ML 1ML VIAL (J1170) As Ordered (11:50)
[2017-04-24] MEDS ORDERED: PHENYLEPHRINE INJ 10MG/ML VIAL (J2370) As Ordered (12:55)
[2017-04-24] MEDS ORDERED: DESFLURANE 240 ML INHALANT As Ordered (13:13)
[2017-04-24] MEDS ORDERED: SUGAMMADEX SODIUM 500 MG/5 ML VIAL (BRIDION) As Ordered (13:49)
== END 2017-04-24 10:11 | disposition home or self-care (01) ==
LOC: M SDC 06:08
DX: H02.831 Dermatochalasis of right upper eyelid (principal); H02.834 Dermatochalasis of left upper eyelid; I73.9 Peripheral vascular disease, unspecified; I50.32 Chronic diastolic (congestive) heart failure; I25.10 Atherosclerotic heart disease of native coronary artery without angina pectoris; G47.33 Obstructive sleep apnea (adult) (pediatric); E66.9 Obesity, unspecified; J44.9 Chronic obstructive pulmonary disease, unspecified; E78.5 Hyperlipidemia, unspecified; E10.9 Type 1 diabetes mellitus without complications; I11.0 Hypertensive heart disease with heart failure; R06.02 Shortness of breath; R06.83 Snoring; K21.9 Gastro-esophageal reflux disease without esophagitis; Z88.0 Allergy status to penicillin; Z88.1 Allergy status to other antibiotic agents; Z88.8 Allergy status to other drugs, medicaments and biological substances; Z79.899 Other long term (current) drug therapy; Z79.82 Long term (current) use of aspirin; Z79.4 Long term (current) use of insulin; Z87.891 Personal history of nicotine dependence; Z95.5 Presence of coronary angioplasty implant and graft; Z96.1 Presence of intraocular lens
CPT/HCPCS: 15823

== ENCOUNTER → 2017-09-19 | Outpatient (CLI) | payer MEDICARE | LOC: M RAD 10:51 | DX: I50.9 Heart failure, unspecified (principal); G45.3 Amaurosis fugax | CPT/HCPCS: 93880 ==

== ENCOUNTER → 2018-02-19 | Outpatient (REF) | payer MEDICARE | LOC: M LAB REF 17:50 | DX: Z00.00 Encounter for general adult medical examination without abnormal findings (principal) | CPT/HCPCS: 87186 ==

== ENCOUNTER → 2018-04-22 | Outpatient (CLI) | payer MEDICARE | LOC: M RAD 11:17 | DX: I73.9 Peripheral vascular disease, unspecified (principal) | CPT/HCPCS: 93925 ==

== ENCOUNTER → 2018-05-03 | Outpatient (CLI) | payer MEDICARE ==
[~2018-05-03] MED LIST changes: +*CPAPSUP; +*GLUCOMETE; +/ADVA50050; +/MOXI40TA; +ACCUPRIL40 PO; +ADV500INH INH; +ADVAIR200 INHALATION; +ADVAIR500 INHALATION; +ALBU17IN INH; +ALBUTEROL INHALATION; +ALDA25TA2; +ALDA25TA2 PO; +ALDACTON25 PO; +ASPI325T PO; +ATOR80TA59 PO; +CALA180T; +CENTTAB PO; +CLOP75TA2 PO; +COLA100C5 PO; +COMBIN INH; +CPAP; +CYMB60CA3 PO; +CYMBALTA PO; +DIAB5TAB; +DIABETA PO; +DOXY100T PO; +DOXY150C PO; +DULO1CAP2 PO; +DUONSOL; +DUONSOL INHALATION; +ECOT325T5; +F ACCUPRIL PO; +FURO40TA2 PO; +GLUC500T; +GLUCOPH500 PO; +GLUCOSE TEST; +GLYB5TAB5 PO; +HEPARIN 1,000 UNITS/ML 10ML VIAL (FOR RADIOLOGY& DIALYSIS ONLY) As Ordered ONE; +HUMULIN 70/30; +HUMULIN703 SC; +HUMULINN SC; +INSULADS SC; +INSULANT SC; +ISORDIL; +ISORDIL PO; +ISOS10TA2 PO; +ISOS30TAB PO; +ISOVUE-300 61% 50ML VIAL (Q9967) As Ordered ONE; +LANCMIS; +LASI40TA; +LASI40TA9 PO; +LASI80TA; +LASI80TA PO; +LASI80TA3 PO; +LASIX40 PO; +LIDOCAINE 2% MDV 20 ML VIAL As Ordered ONE; +LIPI20TA; +LIPITOR20 PO; +LISI-538 PO; +LISI-542 PO; +LISI2.5T76 PO; +LISI40TA; +LISI40TAB OR; +LISI5TAB PO; +LOPR100T; +LOPR100T PO; +LOPRESS100 PO; +LOPRESS50 PO; +LOVA20TA2 PO; +MAGN1TAB25 PO; +METF500T PO; +METFORM500 PO; +METO1TAB87 PO; +METO25TA PO; +METO50TA7 PO; +METO5TAB2; +MICRONASE PO; +MIDAZOLAM INJ 2 MG/2 ML VIAL (J2250) As Ordered ONE; +NEXIUM40 PO; +NITR0.4S; +NITR4TASL SL; +NITROSTAT4 SL; +NOVOINJ SC; +NOVOINJ3 SC; +OMEGCAP8 PO; +OMEP20CA3 PO; +OSEL75CA PO; +PEPCID20 PO; +PRED10TA PO; +PRED10TA2 PO; +PRED1TAB32 PO; +PRED5TAB PO; +PRIL20CA; +PRIL20CA9 PO; +PRILOSECOT PO; +PROTAMINE SULF INJ 50 MG/5 ML VIAL (J2720) As Ordered ONE; +PROV90AE; +PROVENTILI PO; +RANE1000 PO; +REGLAN10 PO; +REGLAN5 PO; +ROBITUSSIN; +SENO8.6T5; +SERT-138 PO; -SLF 3 ML SYR IV; +SPIR-10 PO; +SPIR25TA2 PO; +STOOL SOFTENER; +THERGRAN; +TYLE325T5 PO; +TYLE650T30 PO; +VERA120T2 PO; +ZESTRIL PO; +ZITH500T PO; +[UNRECOGNIZED DRUG - CODE] PO; +[UNRECOGNIZED DRUG - CODE] PO; +[UNRECOGNIZED DRUG - CODE] PO; +[UNRECOGNIZED DRUG - CODE] SUBQ; +[UNRECOGNIZED DRUG - OTHER] SC; +fentaNYL 100 MCG/2 ML INJECTION (J3010) As Ordered ONE; +robitussin PO
[2018-05-03 07:25] LABS: HEMATOCRIT 42.6 % (42.0-52.0); MEAN CORPUSCULAR HEMOGLOBIN 30.2 pg (27.0-33.0); MEAN CORPUSCULAR HGB CONC 32.9 g/dl (32.0-36.5); PLATELET COUNT, AUTOMATED 230 10^3/uL (150-450); RED BLOOD COUNT 4.63 10^6/uL (4.30-6.10); WHITE BLOOD COUNT 10.8 10^3/uL (4.0-10.0)
[2018-05-03 07:45] LABS: CALCIUM LEVEL 8.6 MG/DL (8.8-10.2); CREATININE FOR GFR 1.34 MG/DL (0.70-1.30); GLOMERULAR FILTRATION RATE 55.5 (>42); POTASSIUM SERUM 4.9 MEQ/L (3.5-5.1)
--- NOTE | 2018-06-10 09:46 | REPIR ---
DATE OF PROCEDURE: 05/03/2018 ATTENDING SURGEON: Dr. Mani Adamson ASSISTANTS: Jeanette Back and Hannah Baeza PREOPERATIVE DIAGNOSES: Left lower extremity claudication. Ultrasound showing superficial femoral arterial atherosclerotic occlusive disease. Chronic renal insufficiency. 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 POSTOPERATIVE DIAGNOSES: Left lower extremity claudication. Ultrasound showing superficial femoral arterial atherosclerotic occlusive disease. Chronic renal insufficiency. 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 PROCEDURE: Abdominal aortogram. Pelvic aortogram with iliofemoral angiography. Selective left common femoral artery catheter placement with left lower extremity angiogram. Selective left superficial femoral artery catheter placement with left lower extremity angiogram. Selective left popliteal artery catheter placement with left lower extremity angiogram. Left superficial femoral artery angioplasty with 6 mm x 200 mm balloon. Left popliteal artery angioplasty with 6 mm x 200 mm balloon. Left superficial femoral and popliteal artery angioplasty and stent with a 7 x 120 Elizabeth drug-eluting stent postdilated with a 6 mm x 200 mm balloon. MYNX closure of the right common femoral arteriotomy. INDICATION: Patient is a 73-year-old male with claudication in his left lower extremity and ultrasound showing occlusion of the left superficial femoral artery. The patient will undergo angiogram with possible angioplasty, stent and/or atherectomy. Risks, benefits, and alternative options were discussed with the patient. ANESTHESIA: Local with sedation with 1 mg Versed, 50 mcg of fentanyl and 10 mL of 2% lidocaine. FLUORO TIME: 8.6 minutes. CONTRAST: 12 mL of ISOVUE-300. SEDATION TIME: Was 8:35 a.m. to 9:42 a.m. for a total of 67 minutes. The sedation and cardiopulmonary monitoring were performed by the registered nurse in the room under my direct supervision. I was present for and directed the entire case. There were no sedation related complications and the patient was returned to pre-sedation levels at the completion of the procedure. COMPLICATIONS: None. DRAINS: None. SPECIMENS: None. IMPLANTS: MYNX closure device used to close the right common femoral arteriotomy. 7 mm x 120 mm Elizabeth drug-eluting stent placed in the left superficial femoral and popliteal arteries. PROCEDURE: Patient was taken to the angiography suite, placed supine on the angiography room table and then prepped and draped in a standard surgical fashion. The right common femoral artery was cannulated with a micropuncture needle after anesthetizing the overlying skin with 2% lidocaine. The micropuncture wire was advanced through the micropuncture needle, which was upsized to a micropuncture sheath. A Bentson wire was advanced through the micropuncture sheath, which was upsized to a #5 Jordanian sheath. An Omni Flush catheter was placed in the aorta and aortogram was performed. Catheter was pulled down level of with the bifurcation of the iliac arteries and a pelvic aortogram and iliofemoral angiogram was performed. Catheter was directed over the bifurcation of the iliac arteries, placed in the left common femoral artery and a left lower extremity angiogram was performed. Catheter was advanced into the superficial femoral artery and a selective superficial femoral artery angiogram was performed. The occlusion in the superficial femoral artery was crossed with reentry into the popliteal artery and a selective popliteal artery angiogram was performed confirming intraluminal positioning which was noted. The left superficial femoral and popliteal artery were angioplastied with a 6 x 200 mm balloon with residual stenosis remaining at the completion of the angioplasty. This area was then stented with a 7 mm x 120 cm Elizabeth drug-eluting balloon, which was postdilated with the 6 mm x 200 mm balloon with a completion angiogram showing resolution of the stenoses with excellent flow through the superficial femoral artery, popliteal artery and distally. A MYNX closure device was used to close the arteriotomy in the right common femoral artery with an additional 10 minutes of adjunctive pressure applied for hemostasis. Dressings were then applied. The patient tolerated the procedure well. All instrument, sponge, and needle counts were correct at the end the case. There were no complications. Dr. Adamson was present for and directed the entire case. The patient was transferred to the holding area and subsequently discharged in stable condition.
== END | disposition home or self-care (01) ==
LOC: M IRPRO 06:38
PROVIDERS: ATTEND Surgery Vascular Surgery
DX: I70.212 Atherosclerosis of native arteries of extremities with intermittent claudication, left leg (principal); I70.92 Chronic total occlusion of artery of the extremities; N18.9 Chronic kidney disease, unspecified
CPT/HCPCS: 37226; 80048; 85027; 99152; 99153; C1725; C1760; C1769; C1874; C1887; C1894; J2250; J2720; J3010; Q9967

== ENCOUNTER 2018-07-07 00:31 | Inpatient (IN) | payer MEDICARE ==
[~2018-07-07] VITALS: Ht 172.7 cm; Wt 128.9 kg
[~2018-07-07 00:31] MED LIST changes: -HEPARIN 1,000 UNITS/ML 10ML VIAL (FOR RADIOLOGY& DIALYSIS ONLY) As Ordered ONE; -ISOVUE-300 61% 50ML VIAL (Q9967) As Ordered ONE; -LIDOCAINE 2% MDV 20 ML VIAL As Ordered ONE; -MIDAZOLAM INJ 2 MG/2 ML VIAL (J2250) As Ordered ONE; -PROTAMINE SULF INJ 50 MG/5 ML VIAL (J2720) As Ordered ONE; -fentaNYL 100 MCG/2 ML INJECTION (J3010) As Ordered ONE
[2018-07-07 00:54] LABS: BASO # 0.1 10^3/uL (0.0-0.2); BASO % 0.6 % (0.0-1.0); EOS # 0.1 10^3/uL (0.0-0.50); EOS % 1.1 % (0.0-3.0); HEMATOCRIT 42.1 % (42.0-52.0); HEMOGLOBIN 13.5 g/dl (13.5-17.5); LYMPH # 0.9 10^3/uL (1.5-4.5); MEAN CORPUSCULAR HEMOGLOBIN 29.5 pg (27.0-33.0); MEAN CORPUSCULAR HGB CONC 32.1 g/dl (32.0-36.5); MEAN CORPUSCULAR VOLUME 92.1 fl (80.0-96.0); MONO # 0.9 10^3/uL (0.0-0.8); NEUTROPHILS # 6.7 10^3/uL (1.8-7.7); NEUTROPHILS % 77.7 % (36.0-66.0); PLATELET COUNT, AUTOMATED 162 10^3/uL (150-450); RED BLOOD COUNT 4.57 10^6/uL (4.30-6.10); WHITE BLOOD COUNT 8.6 10^3/uL (4.0-10.0)
[2018-07-07 00:55] LABS: VENOUS BASE EXCESS 0.2 (-2.0-2.0); VENOUS HCO3 24.8 MEQ/L (23.0-27.0); VENOUS PARTIAL PRESSURE CO2 39.9 mmHg (38.0-50.0); VENOUS PARTIAL PRESSURE O2 51.1 mmHg (30.0-50.0); VENOUS PH 7.411 UNITS (7.330-7.430); VENOUS STANDARD HCO3 24.4 MEQ/L
[2018-07-07 01:14] LABS: CALCIUM LEVEL 8.2 MG/DL (8.8-10.2); CREATININE FOR GFR 1.28 MG/DL (0.70-1.30); GLOMERULAR FILTRATION RATE 58.5 (>42)
[2018-07-07] MEDS ORDERED: dexameTHASONE 20 MG/5 ML VIAL (J1100) IV ONE (01:15)
[2018-07-07] MEDS ORDERED: IPRATROPIUM 0.5MG/ALBUTEROL 2.5MG INH SOL UD 3ML (DUONEB)(J7620) NEB SCH (01:15)
[2018-07-07] MEDS ORDERED: LORazepam 2 MG/ML VIAL (J2060) IV STA (01:21)
[2018-07-07] MEDS ORDERED: ACETAMINOPHEN TAB 650MG DOSE (2X325MG) As Ordered ONE (01:53)
[2018-07-07] MEDS ORDERED: ACETAMINOPHEN TAB 650MG DOSE (2X325MG) PO ONE (02:00)
[2018-07-07] MEDS ORDERED: PRED20TA PO (03:28)
[2018-07-07] MEDS ORDERED: METO25TA4 PO (04:12)
[2018-07-07] MEDS ORDERED: LISI2.5T5 PO (04:12)
[2018-07-07] MEDS ORDERED: TOUJ1.2I SC ×2 (04:12)
[2018-07-07] MEDS ORDERED: VENTAER INH (04:12)
[2018-07-07] MEDS ORDERED: OMEP20TA PO (04:12)
[2018-07-07] MEDS ORDERED: FURO40TA2 PO ×2 (04:12)
[2018-07-07] MEDS ORDERED: SPIR-10 PO (04:12)
[2018-07-07] MEDS ORDERED: INCR1INH INH (04:13)
[2018-07-07] MEDS ORDERED: FLUO20CA19 PO (04:16)
[2018-07-07] MEDS ORDERED: ROSU40TA3 PO (04:17)
[2018-07-07] MEDS ORDERED: ACETAMINOPHEN TAB 650MG DOSE (2X325MG) PO PRN (05:00)
[2018-07-07] MEDS ORDERED: GLUCAGON FOR INJ 1 MG VIAL (J1610) SC PRN (05:15)
[2018-07-07] MEDS ORDERED: GLUCOSE 4 GM CHEW TABLET PO PRN (05:15)
[2018-07-07] MEDS ORDERED: DEXTROSE 50% 50 ML SYRINGE IV PRN (05:15)
[2018-07-07] MEDS ORDERED: PILL CRUSHER/CUTTER 1 EACH XX PRN (05:45)
[2018-07-07 06:05] VITALS: BP 154/70
[2018-07-07] MEDS: methylPREDNISolone INJ 40 MG/1 ML VIAL (J2920) IV SCH ×3 (06:21→21:57)
[2018-07-07] MEDS: IPRATROPIUM 0.5MG/ALBUTEROL 2.5MG INH SOL UD 3ML (DUONEB)(J7620) NEB SCH ×4 (07:42→19:38)
[2018-07-07] MEDS: METOPROLOL TART 25 MG TABLET PO SCH ×2 (09:22→20:46)
[2018-07-07] MEDS: LISINOPRIL *2.5 MG* TAB PO SCH (09:22)
[2018-07-07] MEDS: FUROSEMIDE 40 MG TAB PO SCH ×2 (09:22→20:42)
[2018-07-07] MEDS: RANOLAZINE 500 MG ER TAB PO SCH ×2 (09:23→20:43)
[2018-07-07] MEDS: SPIRONOLACTONE 12.5MG PER 1/2 TABLET PO SCH (09:23)
[2018-07-07] MEDS: SENOKOT S TAB PO SCH ×2 (09:23→20:44)
[2018-07-07] MEDS: CLOPIDOGREL 75 MG TAB PO SCH (09:24)
[2018-07-07] MEDS: FLUoxetine 20 MG CAP PO SCH (09:24)
[2018-07-07] MEDS: DOXYCYCLINE HYCLATE 100 MG TAB PO SCH ×2 (09:24→20:42)
[2018-07-07] MEDS: OMEPRAZOLE 20 MG CAP PO SCH ×2 (09:24→20:42)
[2018-07-07] MEDS: ASPIRIN 325 MG TAB PO SCH (09:24)
[2018-07-07] MEDS: ENOXAPARIN 40 MG/0.4 ML SYRINGE (J1650) SC SCH (09:25)
[2018-07-07] MEDS: HumaLOG INSULIN (NovoLOG) PER UNIT SC SCH ×4 (09:26→20:41)
[2018-07-07] MEDS: LEVEMIR (INSULIN DETEMIR) 1 UNITS/0.01ML SC SCH ×2 (09:28→20:42)
--- NOTE | 2018-07-07 10:30 | HPE ---
DATE OF ADMISSION: 07/07/2018 PRIMARY CARE PROVIDER: Johnny Riley MD ANALYTIC MANAGER: Andrew Crespo DO TERRAZZO SUPERVISOR: Art Novak MD ATTENDING PHYSICIAN: Eufemia Evans MD CHIEF COMPLAINT: Worsening shortness of breath. HISTORY OF PRESENT ILLNESS: The patient is 73-year-old white male with several chronic medical conditions listed below came to the ER for evaluation of worsening shortness of breath. The history is provided by himself as well as by the daughter and who are with him in the ER. Per the patient in the last few days he has some flu-like symptoms including runny nose, sore throat, and coughing. Today, the symptoms are getting worse and it became more difficult breathing and decided to come to the ER. In the ER, his initial workup was not significant, however, after treatment in the ER, prior to discharge, he became more short of breath and hypoxic so medicine service called for admission. REVIEW OF SYSTEMS: Denies fever. No chills. No headache. No blurry vision. Positive short of breath. Positive cough and runny nose. Phlegm. No hemoptysis. No nausea. No vomiting. No abdominal pain. No chest pain. No diarrhea. No focal weakness. All other systems reviewed but negative. PAST MEDICAL HISTORY: 1. Chronic obstructive pulmonary disease (COPD) on 2 liters oxygen supplement. 2. Type 2 diabetes. 3. Hypertension. 4. Dyslipidemia. 5. Diastolic congestive heart failure (CHF). 6. Obstructive sleep apnea on CPAP. 7. Obesity. 8. Coronary artery disease. PAST SURGICAL HISTORY: Cardiac stent. Cholecystectomy. Left lower extremity stenting. ALLERGIES: PENICILLIN. LEVOFLOXACIN. SOCIAL HISTORY: He is an ex-smoker, but quit many years ago. No alcohol abuse. No illicit drug abuse. He lives at home with . He is a [employer]. FAMILY HISTORY: His father from heart problems, otherwise noncontributory. MEDICATIONS: - Albuterol as needed - aspirin 325 mg by mouth daily - Plavix 75 mg by mouth daily - fluoxetine 20 mg by mouth daily - Lasix 80 mg by mouth in the morning, 40 mg in the afternoon - lisinopril 2.5 mg by mouth daily - metoprolol 6.25 mg by mouth twice a day - omeprazole 20 mg by mouth daily - Ranexa 1000 mg by mouth twice a day - Crestor 40 mg by mouth daily - Advair Diskus 500/50 inhaler twice a day - spironolactone 12.5 mg every 2 days - insulin Toujeo 30 units in the morning and 6 units in the afternoon PHYSICAL EXAMINATION: VITALS: Temperature 99.6, heart rate 76, respiratory rate 18, blood pressure 120/56, oxygen 93% on 2 liters cannula. GENERAL: He is awake, alert and oriented times three. He is in mild respiratory distress. HEENT: Atraumatic. Pupils equal, round and reactive to light. No jaundice. Extraocular muscles intact. Ears, nose, throat: Normal. Mouth: Mucous moist. Neck: No JVD. No bruits. LUNGS: Diminished breath sounds. Mild wheezing, but no crackles. HEART: S1, S2, regular. No murmur. ABDOMEN: Soft, bowel sounds positive. Nontender. LOWER EXTREMITIES: No edema in bilateral lower extremities. NEUROLOGICAL: Nonfocal. SKIN: No rash. PSYCHOLOGICAL: No acute psychosis. DIAGNOSTIC AND LAB STUDIES: Include the following: CBC and differential: WBC 8.6, hemoglobin and hematocrit 13/42, platelets 162, sodium is 140, potassium 4.0, chloride 104, bicarbonate 27, BUN 10, creatinine 1.2. Glucose 116. Chest x-ray is reviewed. IMPRESSION: 1. Acute on chronic respiratory failure. 2. COPD exacerbation. 3. Type 2 diabetes. 4. Hypertension. 5. Chronic diastolic CHF. 6. Obstructive sleep apnea. 7. Morbid obesity. PLAN: Patient will be admitted to medicine-surgical floor. I will treat him with nebulizer, steroids, antibiotics for COPD exacerbation. Will continue his routine medications and Dr. Evans will followup. RANDY
--- NOTE | 2018-07-07 10:30 | REP ---
Portable chest, 01:10 a.m., AP view, patient sitting: Comparison is 12/19/2017. There are bibasilar infiltrates as an interval change. Lung rosales otherwise clear and unchanged. Cardiac size is upper normal. The ted, mediastinum, skeletal structures are unchanged. Impression: Bibasilar infiltrates. No other interval change. Electronically Signed by Ariel Gordillo MD 07/07/2018 08:12 A
[2018-07-07 14:00] VITALS: BP 169/66
--- NOTE | 2018-07-07 17:51 | ECGEPIP ---
Stationary ECG Study [facility] - ED Test Date: 2018-07-07 Pat Name: CARTER DE LA ROSA Department: Room: [place] [address] Gender: M Chip Bin Operator: bradley : 1945 Requested By: KEI TOBAR Order Number: [id number] Reading MD: Malka Greenwood Measurements Intervals [place] Rate: 85 P: 53 MT: 194 QRS: 7 QRSD: 81 T: 25 QT: 377 QTc: 450 Interpretive Statements SINUS RHYTHM POSSIBLE RIGHT VENTRICULAR CONDUCTION DELAY MODERATE ST DEPRESSION PRWP LOW VOLTAGE LIMB BASELINE ARTIFACT LIMITS INTERPRETATION INCREASED RATE 06/07/16 Electronically Signed On 07-07-2018 17:51:28 EST by Malka Greenwood
[2018-07-07] MEDS: ADVAIR HFA 230/21MCG INHALER INH SCH (19:36)
[2018-07-07] MEDS: ROSUVASTATIN 10 MG TAB (CRESTOR) PO SCH (20:44)
[2018-07-07 22:00] VITALS: BP 110/51
[2018-07-08] MEDS: methylPREDNISolone INJ 40 MG/1 ML VIAL (J2920) IV SCH (05:21)
[2018-07-08 06:00] VITALS: BP 124/55
[2018-07-08] MEDS: IPRATROPIUM 0.5MG/ALBUTEROL 2.5MG INH SOL UD 3ML (DUONEB)(J7620) NEB SCH ×4 (06:39→20:46)
[2018-07-08] MEDS: LISINOPRIL *2.5 MG* TAB PO SCH (08:25)
[2018-07-08] MEDS: SENOKOT S TAB PO SCH ×2 (08:25→20:45)
[2018-07-08] MEDS: DOXYCYCLINE HYCLATE 100 MG TAB PO SCH ×2 (08:25→20:47)
[2018-07-08] MEDS: ASPIRIN 325 MG TAB PO SCH (08:25)
[2018-07-08] MEDS: RANOLAZINE 500 MG ER TAB PO SCH ×2 (08:25→20:45)
[2018-07-08] MEDS: METOPROLOL TART 25 MG TABLET PO SCH ×2 (08:26→20:46)
[2018-07-08] MEDS: FLUoxetine 20 MG CAP PO SCH (08:26)
[2018-07-08] MEDS: OMEPRAZOLE 20 MG CAP PO SCH ×2 (08:26→20:46)
[2018-07-08] MEDS: FUROSEMIDE 40 MG TAB PO SCH ×2 (08:26→20:45)
[2018-07-08] MEDS: CLOPIDOGREL 75 MG TAB PO SCH (08:26)
[2018-07-08] MEDS: LEVEMIR (INSULIN DETEMIR) 1 UNITS/0.01ML SC SCH ×2 (08:27→20:47)
[2018-07-08] MEDS: ENOXAPARIN 40 MG/0.4 ML SYRINGE (J1650) SC SCH (08:27)
[2018-07-08] MEDS: HumaLOG INSULIN (NovoLOG) PER UNIT SC SCH ×4 (08:27→20:59)
[2018-07-08 14:00] VITALS: BP 128/59
--- NOTE | 2018-07-08 20:01 | IPNPDOC ---
Date Seen The patient was seen on 07/08/18. Progress Note SUBJECTIVE: Anxious to go home. RSV on respiratory panel. no white count. CXR: bibasilar infiltrates. still with slight COLEMAN. but wants dc home soon. Denies fever. No chills. No headache. No blurry vision. Positive short of breath. Positive cough and runny nose. Phlegm. No hemoptysis. No nausea. No vomiting. No abdominal pain. No chest pain. No diarrhea. No focal weakness. PHYSICAL EXAMINATION: VITALS: pls see below GENERAL: He is awake, alert and oriented times three. He is in mild respiratory distress. HEENT: Atraumatic. Pupils equal, round and reactive to light. No jaundice. Extraocular muscles intact. Ears, nose, throat: Normal. Mouth: Mucous moist. Neck: No JVD. No bruits. LUNGS: Diminished breath sounds. Mild wheezing, but no crackles. HEART: S1, S2, regular. No murmur. ABDOMEN: Soft, bowel sounds positive. Nontender. LOWER EXTREMITIES: No edema in bilateral lower extremities. NEUROLOGICAL: Nonfocal. SKIN: No rash. PSYCHOLOGICAL: No acute psychosis. DIAGNOSTIC AND LAB STUDIES:pls see below MICROBIOLOGY: REVIEWED IMAGING STUDIES: Portable chest, 01:10 a.m., AP view, patient sitting: Comparison is 12/19/2017. There are bibasilar infiltrates as an interval change. Lung rosales otherwise clear and unchanged. Cardiac size is upper normal. The ted, mediastinum, skeletal structures are unchanged. Impression: Bibasilar infiltrates. No other interval change. Electronically Signed by Ariel Gordillo MD 07/07/2018 08:12 A DD: Ariel Gordillo MD 07/07/1810 DT: Ester 07/07/1812 DS: MARY 07/07/1812 07/07/1812 ASSESSMENT AND PLAN: The patient is 73-year-old white male with several chronic medical conditions listed below came to the ER for evaluation of worsening shortness of breath. The history is provided by himself as well as by the daughter and who are with him in the ER. Per the patient in the last few days he has some flu-like symptoms including runny nose, sore throat, and coughing. Today, the symptoms are getting worse and it became more difficult breathing and decided to come to the ER. In the ER, his initial workup was not significant, however, after treatment in the ER, prior to discharge, he became more short of breath and hypoxic so medicine service called for admission. 1. Chronic obstructive pulmonary disease (COPD) on 2 liters oxygen supplement./RSV improved on solumedrol and anxious to go home. supportive care with tapered steroids with po prednisone and doxycycline. nebs prn and continue home inhalers. 2. Type 2 diabetes. on levemir bid and insulin with coverage , sliding scale. consistent carbs diet. check a1c. rapid taper of steroids if clinically tolerated to avoid steroid induced hyperglycemia. 3. Hypertension. resume home meds 4. Dyslipidemia. resume home meds 5. Diastolic congestive heart failure (CHF). continue diuretics lasix and spironolactone check bnp. increase diuretics if needed 6. Obstructive sleep apnea on CPAP. resume home cpap at home setting 7. Obesity.complicating care 8. Coronary artery disease.resume home meds. on ranexa. disposition: pending clincal improvemnet . patient is anxious for discharge. VS, I&O, 24H, Fishbone Vital Signs/I&O Vital Signs Date Time Temp Pulse Resp B/P (MAP) Pulse Ox O2 Delivery O2 Flow Rate FiO2 07/08/18 14:00 99.4 79 20 128/59 (82) 92 2.0 07/08/18 13:13 Nasal Cannula I&O- Last 24 Hours up to 6 AM 07/08/18 06:00 Intake Total 1990 ml Output Total 2625 ml Balance -635 ml Laboratory Data Microbiology Microbiology 07/07/18 Blood Culture - Preliminary, Resulted No growth after 24 hours . All specim... 07/07/18 MRSA Screen - Final, Complete 07/07/18 Respiratory Virus Panel (PCR) ([facility]) - Final, Complete Respiratory Syncytial Virus JOCELYNE OTTO MD Jul 08, 2018 19:52
[2018-07-08 20:33] LABS: BASO % 0.2 % (0.0-1.0); HEMATOCRIT 40.1 % (42.0-52.0); LYMPH # 0.7 10^3/uL (1.5-4.5); LYMPH % 6.3 % (24.0-44.0); MEAN CORPUSCULAR HGB CONC 32.4 g/dl (32.0-36.5); MEAN CORPUSCULAR VOLUME 92.6 fl (80.0-96.0); MONO % 8.8 % (0.0-5.0); NEUTROPHILS # 9.4 10^3/uL (1.8-7.7); PLATELET COUNT, AUTOMATED 206 10^3/uL (150-450); RED BLOOD COUNT 4.33 10^6/uL (4.30-6.10); WHITE BLOOD COUNT 11.2 10^3/uL (4.0-10.0)
[2018-07-08] MEDS: ROSUVASTATIN 10 MG TAB (CRESTOR) PO SCH (20:45)
[2018-07-08] MEDS: ADVAIR HFA 230/21MCG INHALER INH SCH (21:00)
[2018-07-08 21:04] LABS: C REACTIVE PROTEIN QUANTITATIV 1.92 MG/DL (0.00-0.30); CALCIUM LEVEL 8.2 MG/DL (8.8-10.2); CREATININE FOR GFR 1.54 MG/DL (0.70-1.30); GLOMERULAR FILTRATION RATE 47.2 (>42); POTASSIUM SERUM 4.1 MEQ/L (3.5-5.1)
[2018-07-08 21:06] LABS: ERYTHROCYTE SEDIMENTATION RATE 33 mm/hr (0-20)
[2018-07-08 22:00] VITALS: BP 130/65
[2018-07-09 06:00] VITALS: BP 111/58
[2018-07-09 06:14] LABS: BASO % 0.2 % (0.0-1.0); HEMATOCRIT 40.1 % (42.0-52.0); HEMOGLOBIN 12.7 g/dl (13.5-17.5); LYMPH # 1.3 10^3/uL (1.5-4.5); LYMPH % 13.2 % (24.0-44.0); MEAN CORPUSCULAR HEMOGLOBIN 29.6 pg (27.0-33.0); MEAN CORPUSCULAR HGB CONC 31.7 g/dl (32.0-36.5); MEAN CORPUSCULAR VOLUME 93.5 fl (80.0-96.0); MONO % 10.4 % (0.0-5.0); NEUTROPHILS # 7.2 10^3/uL (1.8-7.7); NEUTROPHILS % 75.3 % (36.0-66.0); PLATELET COUNT, AUTOMATED 181 10^3/uL (150-450); RED BLOOD COUNT 4.29 10^6/uL (4.30-6.10); WHITE BLOOD COUNT 9.6 10^3/uL (4.0-10.0)
[2018-07-09 06:35] LABS: CALCIUM LEVEL 8.4 MG/DL (8.8-10.2); CREATININE FOR GFR 1.44 MG/DL (0.70-1.30); GLOMERULAR FILTRATION RATE 51.1 (>42); POTASSIUM SERUM 4.4 MEQ/L (3.5-5.1)
[2018-07-09] MEDS: IPRATROPIUM 0.5MG/ALBUTEROL 2.5MG INH SOL UD 3ML (DUONEB)(J7620) NEB SCH ×4 (08:08→21:34)
[2018-07-09] MEDS: ENOXAPARIN 40 MG/0.4 ML SYRINGE (J1650) SC SCH (09:10)
[2018-07-09] MEDS: RANOLAZINE 500 MG ER TAB PO SCH ×2 (09:11→20:29)
[2018-07-09] MEDS: HumaLOG INSULIN (NovoLOG) PER UNIT SC SCH ×4 (09:11→22:02)
[2018-07-09] MEDS: LEVEMIR (INSULIN DETEMIR) 1 UNITS/0.01ML SC SCH ×2 (09:11→20:31)
[2018-07-09] MEDS: SPIRONOLACTONE 12.5MG PER 1/2 TABLET PO SCH (09:12)
[2018-07-09] MEDS: CLOPIDOGREL 75 MG TAB PO SCH (09:12)
[2018-07-09] MEDS: FUROSEMIDE 40 MG TAB PO SCH ×2 (09:12→20:29)
[2018-07-09] MEDS: OMEPRAZOLE 20 MG CAP PO SCH ×2 (09:13→20:29)
[2018-07-09] MEDS: SENOKOT S TAB PO SCH ×2 (09:13→20:29)
[2018-07-09] MEDS: ASPIRIN 325 MG TAB PO SCH (09:13)
[2018-07-09] MEDS: FLUoxetine 20 MG CAP PO SCH (09:13)
[2018-07-09] MEDS: LISINOPRIL *2.5 MG* TAB PO SCH (09:15)
[2018-07-09] MEDS: METOPROLOL TART 25 MG TABLET PO SCH ×2 (09:15→20:30)
[2018-07-09] MEDS: DOXYCYCLINE HYCLATE 100 MG TAB PO SCH ×2 (09:16→20:29)
[2018-07-09] MEDS: predniSONE 20 MG TAB PO SCH (09:16)
--- NOTE | 2018-07-09 11:51 | IPNPDOC ---
Text Note Date of Service The patient was seen on 07/09/18. NOTE Subjective: Patient is a 73-year-old male with a PMhx of COPD on 2L O2, JAELYN on CPAP, CAD, Diastolic CHF, HTN, DM2, DLP, CKD3, Morbid Obesity , who presented to the ER with complaints of worsening shortness of breath. Patient was found to have a COPD exacerbation was admitted to hospitalist service for further evaluation and treatment. Patient was seen and examined at the bedside. Patient notes that his breathing is doing better. Denies any chest pain, shortness of breath or palpitations. Denies nausea, vomiting, abdominal pain, constipation, diarrhea or discomfort with urination. Objective: Vitals (See below) General: Lying in bed, no acute distress, comfortable, AAOx3 HEENT: NC, AT CVS: RRR, +S1S2 Lungs: Fair air entry b/l, -w/r/r Abdomen: Soft, ND, NT Extremities: - Edema, - Calf tenderness Assessment and plan: Acute COPD exacerbation - possibly 2/2 RSV infection - Patient has noted that his breathing is doing significantly better - Currently down to his outpatient level of supplemental oxygen via nasal cannula - Physical with no evidence of wheezing - Lab work unremarkable - Respiratory panel 07/07: RSV - CXR 07/07: Bibasilar infiltrates. No other interval change. - c/w Prednisone; s/p Solumedrol - c/w Doxycylcine (Day #3) - c/w Inhaled therapy as ordered - Awaiting PT clearance s/p Acute hypoxic respiratory failure - likely 2/2 above - See above JAELYN on CPAP CAD - c/w ASA and Plavix Diastolic CHF - No evidence of fluid overload - ECHO 04/2015: Diastolic dysfunction, Mild pulmonary HTN - c/w Furosemide and Spironolactone HTN - c/w Lisinopril and Metoprolol IDDM2 - c/w ISS and Levemir DLP - c/w Rosuvastatin CKD3 - Cr at baseline Depression - c/w Fluoxetine Morbid Obesity - Complicating medical care GERD - c/w Omeprazole DVT prophylaxis - c/w Lovenox Disposition: - Awaiting PT clearance VS,Fishbone, I+O VS, Fishbone, I+O Laboratory Tests 07/08/18 20:06 Red Blood Count 4.33, Mean Corpuscular Volume 92.6, Mean Corpuscular Hemoglobin 30.0, Mean Corpuscular Hemoglobin Concent 32.4, Red Cell Distribution Width 13.8, Neutrophils (%) (Auto) 84.0 H, Lymphocytes (%) (Auto) 6.3 L, Monocytes (%) (Auto) 8.8 H, Eosinophils (%) (Auto) 0.0, Basophils (%) (Auto) 0.2, Neutrophils # (Auto) 9.4 H, Lymphocytes # (Auto) 0.7 L, Monocytes # (Auto) 1.0 H, Eosinophils # (Auto) 0.0, Basophils # (Auto) 0.0, Calcium Level 8.2 L 07/09/18 06:00 Red Blood Count 4.29 L, Mean Corpuscular Volume 93.5, Mean Corpuscular Hemoglobin 29.6, Mean Corpuscular Hemoglobin Concent 31.7 L, Red Cell Distribution Width 13.9, Neutrophils (%) (Auto) 75.3 H, Lymphocytes (%) (Auto) 13.2 L, Monocytes (%) (Auto) 10.4 H, Eosinophils (%) (Auto) 0.0, Basophils (%) (Auto) 0.2, Neutrophils # (Auto) 7.2, Lymphocytes # (Auto) 1.3 L, Monocytes # (Auto) 1.0 H, Eosinophils # (Auto) 0.0, Basophils # (Auto) 0.0, Calcium Level 8.4 L Vital Signs Date Time Temp Pulse Resp B/P (MAP) Pulse Ox O2 Delivery O2 Flow Rate FiO2 07/09/18 09:15 80 110/60 07/09/18 06:00 97.4 18 95 2.0 07/08/18 13:13 Nasal Cannula I&O- Last 24 Hours up to 6 AM 07/09/18 06:00 Intake Total 3410 ml Output Total 2325 ml Balance 1085 ml GRACE HARDING MD Jul 09, 2018 11:51
[2018-07-09 14:00] VITALS: BP 128/56
[2018-07-09] MEDS: ROSUVASTATIN 10 MG TAB (CRESTOR) PO SCH (20:30)
[2018-07-09] MEDS: ADVAIR HFA 230/21MCG INHALER INH SCH (21:34)
[2018-07-09 22:00] VITALS: BP 120/58
[2018-07-10 06:00] VITALS: BP 110/61
[2018-07-10 06:31] LABS: HEMOGLOBIN 12.9 g/dl (13.5-17.5); MEAN CORPUSCULAR HGB CONC 32.3 g/dl (32.0-36.5); PLATELET COUNT, AUTOMATED 172 10^3/uL (150-450); WHITE BLOOD COUNT 7.2 10^3/uL (4.0-10.0)
[2018-07-10] MEDS: IPRATROPIUM 0.5MG/ALBUTEROL 2.5MG INH SOL UD 3ML (DUONEB)(J7620) NEB SCH ×2 (07:36→13:59)
[2018-07-10] MEDS: ASPIRIN 325 MG TAB PO SCH (08:00)
[2018-07-10] MEDS: DOXYCYCLINE HYCLATE 100 MG TAB PO SCH (08:00)
[2018-07-10] MEDS: RANOLAZINE 500 MG ER TAB PO SCH (08:00)
[2018-07-10] MEDS: FUROSEMIDE 40 MG TAB PO SCH (08:03)
[2018-07-10] MEDS: OMEPRAZOLE 20 MG CAP PO SCH (08:03)
[2018-07-10] MEDS: LISINOPRIL *2.5 MG* TAB PO SCH (08:03)
[2018-07-10] MEDS: CLOPIDOGREL 75 MG TAB PO SCH (08:03)
[2018-07-10] MEDS: SENOKOT S TAB PO SCH (08:03)
[2018-07-10] MEDS: FLUoxetine 20 MG CAP PO SCH (08:03)
[2018-07-10] MEDS: ENOXAPARIN 40 MG/0.4 ML SYRINGE (J1650) SC SCH (08:04)
[2018-07-10] MEDS: predniSONE 20 MG TAB PO SCH (08:04)
[2018-07-10 08:05] VITALS: BP 112/71
[2018-07-10] MEDS: LEVEMIR (INSULIN DETEMIR) 1 UNITS/0.01ML SC SCH (08:05)
[2018-07-10] MEDS: HumaLOG INSULIN (NovoLOG) PER UNIT SC SCH ×2 (08:05→12:38)
[2018-07-10] MEDS: METOPROLOL TART 25 MG TABLET PO SCH (08:05)
--- NOTE | 2018-07-10 11:01 | IPNPDOC ---
Text Note Date of Service The patient was seen on 07/10/18. NOTE Subjective: Patient is a 73-year-old male with a PMhx of COPD on 2L O2, JAELYN on CPAP, CAD, Diastolic CHF, HTN, DM2, DLP, CKD3, Morbid Obesity , who presented to the ER with complaints of worsening shortness of breath. Patient was found to have a COPD exacerbation was admitted to hospitalist service for further evaluation and treatment. Patient was seen and examined at the bedside. Clinically. Patient notes that his breathing is unchanged from yesterday. Is at baseline. Denies any significant cough or chest pain. Denies nausea, vomiting, abdominal pain, constipation, diarrhea or discomfort with urination Objective: Vitals (See below) General: Lying in bed, no acute distress, comfortable, AAOx3 HEENT: NC, AT CVS: RRR, +S1S2 Lungs: Fair air entry b/l, auscultation is nonrevealing any rhonchi / rales / wheezing Abdomen: Soft, ND, NT Extremities: No evidence of edema, - Calf tenderness Assessment and plan: Acute COPD exacerbation - possibly 2/2 RSV infection - Patient has noted that his breathing is doing significantly better - Currently down to his outpatient level of supplemental oxygen via nasal cannula - Physical with no evidence of wheezing - Lab work unremarkable - Respiratory panel 07/07: RSV - CXR 07/07: Bibasilar infiltrates. No other interval change. - c/w Prednisone; s/p Solumedrol; will provide prednisone taper upon discharge - c/w Doxycycline (Day #4) - c/w Inhaled therapy as ordered - Continuing to work with physical therapy; has not yet cleared s/p Acute hypoxic respiratory failure - likely 2/2 above - See above JAELYN on CPAP CAD - c/w ASA and Plavix Diastolic CHF - No evidence of fluid overload - ECHO 04/2015: Diastolic dysfunction, Mild pulmonary HTN - c/w Furosemide and Spironolactone HTN - c/w Lisinopril and Metoprolol IDDM2 - c/w ISS and Levemir DLP - c/w Rosuvastatin CKD3 - Cr at baseline Depression - c/w Fluoxetine; will increase dose Morbid Obesity - Complicating medical care GERD - c/w Omeprazole DVT prophylaxis - c/w Lovenox Disposition: - Awaiting PT clearance VS,Jose, I+O VS, Jose, I+O Laboratory Tests 07/10/18 06:10 Red Blood Count 4.30, Mean Corpuscular Volume 93.0, Mean Corpuscular Hemoglobin 30.0, Mean Corpuscular Hemoglobin Concent 32.3, Red Cell Distribution Width 13.8 Vital Signs Date Time Temp Pulse Resp B/P (MAP) Pulse Ox O2 Delivery O2 Flow Rate FiO2 07/10/18 08:05 60 112/71 07/10/18 06:00 98.1 18 96 2.0 07/09/18 21:35 Nasal Cannula I&O- Last 24 Hours up to 6 AM0 07/10/18 06:00 Intake Total 1050 ml Output Total 1875 ml Balance -825 ml GRACE HARDING MD Jul 10, 2018 11:01
[2018-07-10] MEDS ORDERED: PRED10TA2 PO (14:19)
[2018-07-10] MEDS ORDERED: FLUO20CA19 PO (14:19)
[2018-07-10] MEDS ORDERED: DOXY-350 PO (14:24)
--- NOTE | 2018-07-10 14:24 | DS.PDOC ---
Discharge Summary General Date of Admission Jul 07, 2018 at 04:55 Date of Discharge 07/10/2018 Discharge Summary PROCEDURES PERFORMED DURING STAY: [None]. ADMITTING DIAGNOSES / DISCHARGE DIAGNOSES: Acute COPD exacerbation - possibly 2/2 RSV infection s/p Acute hypoxic respiratory failure - likely 2/2 above JAELYN on CPAP CAD Diastolic CHF HTN IDDM2 DLP CKD3 Depression Morbid Obesity GERD DVT prophylaxis COMPLICATIONS/CHIEF COMPLAINT: Shortness of breath HISTORY OF PRESENT ILLNESS: Patient is a 73-year-old male with a PMhx of COPD on 2L O2, JAELYN on CPAP, CAD, Diastolic CHF, HTN, DM2, DLP, CKD3, Morbid Obesity , who presented to the ER with complaints of worsening shortness of breath. Patient was found to have a COPD exacerbation was admitted to hospitalist service for further evaluation and treatment. Patient was seen and examined at the bedside. Clinically. Patient notes that his breathing is unchanged from yesterday. Is at baseline. Denies any significant cough or chest pain. Denies nausea, vomiting, abdominal pain, constipation, diarrhea or discomfort with urination HOSPITAL COURSE: Acute COPD exacerbation - possibly 2/2 RSV infection - Patient has noted that his breathing is doing significantly better - Currently down to his outpatient level of supplemental oxygen via nasal cannula - Physical with no evidence of wheezing - Lab work unremarkable - Respiratory panel 07/07: RSV - CXR 07/07: Bibasilar infiltrates. No other interval change. - c/w Prednisone; s/p Solumedrol; will provide prednisone taper upon discharge - c/w Doxycycline (Day #4) - will complete 7 day course - c/w Inhaled therapy as ordered - Has cleared physical therapy - has progressed with stairs and displayed safe ambulation s/p Acute hypoxic respiratory failure - likely 2/2 above - See above JAELYN on CPAP CAD - c/w ASA and Plavix Diastolic CHF - No evidence of fluid overload - ECHO 04/2015: Diastolic dysfunction, Mild pulmonary HTN - c/w Furosemide and Spironolactone HTN - c/w Lisinopril and Metoprolol IDDM2 - c/w ISS and Levemir DLP - c/w Rosuvastatin CKD3 - Cr at baseline Depression - c/w Fluoxetine; will increase dose Morbid Obesity - Complicating medical care GERD - c/w Omeprazole DVT prophylaxis - c/w Lovenox DISCHARGE MEDICATIONS: Please see below. ALLERGIES: Please see below. PHYSICAL EXAMINATION ON DISCHARGE: Vitals (See below) General: Lying in bed, no acute distress, comfortable, AAOx3 HEENT: NC, AT CVS: RRR, +S1S2 Lungs: Fair air entry b/l, auscultation is nonrevealing of any rhonchi / rales / wheezing Abdomen: Soft, ND, NT Extremities: No evidence of edema, - Calf tenderness LABORATORY DATA: Please see below. ACTIVITY: [As tolerated]. DISCHARGE PLAN: Follow up with Dr. Mani Riley within 7 days Remain compliant with treatment plan and medications Return to the ER if you experience any problems. DISPOSITION: Home DISCHARGE CONDITION: [Stable]. TIME SPENT ON DISCHARGE: Greater than [35] minutes. Vital Signs/I&Os Vital Signs Date Time Temp Pulse Resp B/P (MAP) Pulse Ox O2 Delivery O2 Flow Rate FiO2 07/10/18 08:05 60 112/71 07/10/18 06:00 98.1 18 96 2.0 07/09/18 21:35 Nasal Cannula I&O- Last 24 Hours up to 6 AM 07/10/18 06:00 Intake Total 1050 ml Output Total 1875 ml Balance -825 ml Laboratory Data Labs 24H Laboratory Tests 2 07/09/18 20:45: Bedside Glucose (Misc Panel) 350H 07/10/18 06:10: Nucleated Red Blood Cells % (auto) 0.0 07/10/18 07:30: Bedside Glucose (Misc Panel) 115H CBC/BMP Laboratory Tests 07/10/18 06:10 Red Blood Count 4.30, Mean Corpuscular Volume 93.0, Mean Corpuscular Hemoglobin 30.0, Mean Corpuscular Hemoglobin Concent 32.3, Red Cell Distribution Width 13.8 FSBS Laboratory Tests Test 07/09/18 20:45 07/10/18 07:30 Range/Units Bedside Glucose (Misc Panel) 350 115 83-110 MG/DL Microbiology Microbiology 07/07/18 Blood Culture - Preliminary, Resulted No Growth after 72 hours. All specime... 07/07/18 MRSA Screen - Final, Complete 07/07/18 Respiratory Virus Panel (PCR) ([facility]) - Final, Complete Respiratory Syncytial Virus Discharge Medications Scheduled (Christiano Brown) 300 Unit/Ml Inj, 30 UNIT SC QAM, (Reported) (Toujeo Solostar) 300 Unit/Ml Inj, 60 UNIT SC QPM, (Reported) (Incruse Ellipta) 62.5 Mcg/Inh Inh, 1 PUFF INH DAILY, (Reported) Aspirin (Aspirin) 325 Mg Tab, 325 MG PO DAILY, (Reported) Clopidogrel Bisulfate (Clopidogrel) 75 Mg Tab, 75 MG PO DAILY, (Reported) Fluoxetine Hcl (Fluoxetine HCl) 20 Mg Cap, 30 MG PO DAILY Furosemide (Lasix) 40 Mg Tab, 40 MG PO QPM, (Reported) Furosemide (Furosemide) 40 Mg Tab, 80 MG PO QAM, (Reported) Insulin Aspart (Novolog Flexpen) 100 Unit/Ml Inj, 0 SC ACHS, (Reported) PER SLIDING SCALE Lisinopril (Lisinopril) 2.5 Mg Tab, 2.5 MG PO DAILY, (Reported) Magnesium Oxide (Magnesium) 400 Mg Tab, 400 MG PO DAILY, (Reported) Metoprolol Tartrate (Metoprolol Tartrate) 25 Mg Tab, 6.25 MG PO BID, (Reported) Omeprazole (Omeprazole) 20 Mg Tab, 20 MG PO BID, (Reported) Prednisone (Prednisone) 10 Mg Tab, 10 MG PO TAPER Take 4 tabs daily x 3 days, then 3 tabs daily x 3 days, then 2 tabs daily x 3 days, then 1 tab daily x 3 days and stop Ranolazine (Ranexa) 1,000 Mg Tab, 1,000 MG PO BID, (Reported) Rosuvastatin Calcium (Rosuvastatin Calcium) 40 Mg Tab, 40 MG PO QHS, (Reported) Salmeterol/Fluticasone (Advair Diskus 500-50 Mcg/Dose) 28 Puff/Inhaler Aerp, 2 PUFFS INH QHS, (Reported) Spironolactone (Spironolactone) 25 Mg Tab, 12.5 MG PO Q2D, (Reported) Scheduled PRN Albuterol Sulfate (Ventolin Hfa) 108 Mcg/Act Aer, 2 PUFF INH Q4-6HP PRN for wheezing, (Reported) Nitroglycerin (Nitrostat) 0.4 Mg Subl, 0.4 MG SL NITRO PRN for CHEST PAIN, (Reported) Allergies Coded Allergies: Cephalosporins (Verified Allergy, Mild, RASH ON CEFTIN, 07/07/18) Levofloxacin (Verified Allergy, Mild, RASH, 07/07/18) Penicillins (Verified Allergy, Mild, RASH ON AUGMENTIN, 07/07/18) Clavulanic Acid (Verified Allergy, Unknown, 07/07/18) Penicillins Cross Reactors (Verified Allergy, Unknown, RASH ON AUGMENTIN, 07/07/18) GRACE HARDING MD Jul 10, 2018 14:24
[2018-07-11] MEDS ORDERED: FLUoxetine 10 MG CAP PO SCH (09:00)
== END 2018-07-10 15:24 | disposition home or self-care (01) | DRG 189 ==
LOC: M ED 00:31 → M ED INP 04:55 → M MSPAV 06:05
PROVIDERS: ADMIT Hospitalist; ATTEND Internal Medicine
DX: J96.21 Acute and chronic respiratory failure with hypoxia (principal); J44.1 Chronic obstructive pulmonary disease with (acute) exacerbation; I50.32 Chronic diastolic (congestive) heart failure; I13.0 Hypertensive heart and chronic kidney disease with heart failure and stage 1 through stage 4 chronic kidney disease, or unspecified chronic kidney disease; Z68.41 Body mass index [BMI] 40.0-44.9, adult; E11.22 Type 2 diabetes mellitus with diabetic chronic kidney disease; G47.33 Obstructive sleep apnea (adult) (pediatric); E66.01 Morbid (severe) obesity due to excess calories; N18.3 Chronic kidney disease, stage 3 (moderate); I25.10 Atherosclerotic heart disease of native coronary artery without angina pectoris; Z95.5 Presence of coronary angioplasty implant and graft; B97.4 Respiratory syncytial virus as the cause of diseases classified elsewhere; Z90.49 Acquired absence of other specified parts of digestive tract; Z95.820 Peripheral vascular angioplasty status with implants and grafts; Z88.0 Allergy status to penicillin; Z88.1 Allergy status to other antibiotic agents; Z87.891 Personal history of nicotine dependence; Z79.4 Long term (current) use of insulin; Z79.02 Long term (current) use of antithrombotics/antiplatelets; Z79.82 Long term (current) use of aspirin; Z79.899 Other long term (current) drug therapy; Z99.81 Dependence on supplemental oxygen

== ENCOUNTER → 2018-08-22 | Outpatient (CLI) | payer MEDICARE ==
[~2018-08-22] MED LIST changes: -/ADVA50050; -/MOXI40TA; +ADVA1AER2; +ASPI-1 PO; +AVEL1TAB2; +DOXY-350 PO; +FLUO20CA19 PO; +INCR1INH INH; +LISI-1046 PO; +LISI40TA52 OR; -LISI40TAB OR; -MAGN1TAB25 PO; +MAGN1TAB26 PO; +METO25TA4 PO; +OMEP20TA PO; +PRED-351 PO; -PRED10TA PO; +PRED20TA PO; +ROSU40TA3 PO; +TOUJ1.2I SC; +VENTAER INH
[2018-08-22 12:16] LABS: BLOOD UREA NITROGEN 16 MG/DL (7-18); CALCIUM LEVEL 8.7 MG/DL (8.8-10.2); CARBON DIOXIDE LEVEL 27 MEQ/L (21-32); CHLORIDE LEVEL 106 MEQ/L (98-107); CREATININE FOR GFR 1.16 MG/DL (0.70-1.30); GLOMERULAR FILTRATION RATE > 60.0 (>42); GLUCOSE, FASTING 128 MG/DL (70-100); POTASSIUM SERUM 4.7 MEQ/L (3.5-5.1); SODIUM LEVEL 139 MEQ/L (136-145)
== END ==
LOC: M LAB 10:59
PROVIDERS: ATTEND Family Medicine
DX: Z01.812 Encounter for preprocedural laboratory examination (principal)

== ENCOUNTER → 2018-08-28 | Outpatient (CLI) | payer MEDICARE ==
--- NOTE | 2018-08-28 14:28 | REP ---
Chest two views HISTORY: Abnormal lung findings Comparison: 07/07/2018 There has been resolution of the previously noted bibasilar infiltrates. Linear density is present in the right middle lobe consistent with atelectasis or scar. The heart is normal in size. The pulmonary vasculature is normal in appearance. There are old compression fractures of several lower thoracic vertebral bodies. IMPRESSION: 1. There has been resolution of the previously noted bibasilar infiltrates. 2. Right middle lobe atelectasis or scar. Electronically Signed by Sage Garrett MD 08/28/2018 02:19 P
== END ==
LOC: M RAD 14:04
PROVIDERS: ATTEND Internal Medicine Pulmonary Disease
DX: R91.8 Other nonspecific abnormal finding of lung field (principal)

== ENCOUNTER → 2018-09-18 | Outpatient (CLI) | payer MEDICARE ==
--- NOTE | 2018-09-18 11:51 | REP ---
LEFT LOWER EXTREMITY ARTERIAL DOPPLER: REASON: Claudication status post stent placement 05/03/18. The ankle brachial index is 0.8. [employer] EXECUTIVE 117 cm/s triphasic Profunda 132 cm/s triphasic SFA proximal 108 cm/s triphasic SFA mid portion 60.9 cm/s monophasic FFA distal portion 43.8 cm/s monophasic Popliteal 76.0 cm/s monophasic SERVANDO proximal 15.4 cm/s monophasic Tibioperoneal trunk 30.7 cm/s monophasic HAND EDGER proximal 16.6 cm/s monophasic HAND EDGER distal 19.1 cm/s monophasic SERVANDO distal 29.2 cm/s monophasic Evaluation of the stent suggests ultrasonographic evidence of patency. IMPRESSION: Values as described above. Electronically Signed by Oscar Moreno DO 09/18/2018 03:15 P
== END ==
LOC: M RAD 09:18
PROVIDERS: ATTEND Surgery Vascular Surgery
DX: I70.213 Atherosclerosis of native arteries of extremities with intermittent claudication, bilateral legs (principal); Z95.5 Presence of coronary angioplasty implant and graft

== ENCOUNTER 2018-10-10 22:31 | Inpatient (IN) | payer MEDICARE ==
[~2018-10-10] VITALS: Ht 172.7 cm; Wt 124.7 kg
[2018-10-10 22:58] LABS: BASO % 0.2 % (0.0-1.0); EOS % 0.2 % (0.0-3.0); HEMATOCRIT 42.7 % (42.0-52.0); LYMPH % 9.9 % (24.0-44.0); MEAN CORPUSCULAR HGB CONC 32.8 g/dl (32.0-36.5); MEAN CORPUSCULAR VOLUME 91.4 fl (80.0-96.0); MONO % 10.1 % (0.0-5.0); NEUTROPHILS # 7.6 10^3/uL (1.8-7.7); PLATELET COUNT, AUTOMATED 160 10^3/uL (150-450); RED BLOOD COUNT 4.67 10^6/uL (4.30-6.10); WHITE BLOOD COUNT 9.6 10^3/uL (4.0-10.0)
[2018-10-10 23:14] LABS: PROTHROMBIN TIME 13.3 SECONDS (12.1-14.4)
[2018-10-10 23:30] LABS: BLOOD UREA NITROGEN 20 MG/DL (7-18); CALCIUM LEVEL 8.3 MG/DL (8.8-10.2); CARBON DIOXIDE LEVEL 28 MEQ/L (21-32); CHLORIDE LEVEL 102 MEQ/L (98-107); CK-MB VALUE MASS < 1.0 NG/ML (<3.6); CPK CREATINE PHOSPHOKINASE 30 U/L (39-308); CREATININE FOR GFR 1.24 MG/DL (0.70-1.30); GLOMERULAR FILTRATION RATE > 60.0 (>42); GLUCOSE, FASTING 80 MG/DL (70-100); MB/CK RELATIVE INDEX 3.33 (< OR =4); NT-PRO BNP 356 PG/ML (<125); SODIUM LEVEL 139 MEQ/L (136-145); TROPONIN I < 0.02 NG/ML (< 0.10)
[2018-10-10] MEDS ORDERED: dexameTHASONE 20 MG/5 ML VIAL (J1100) IV ONE (23:30)
[2018-10-10] MEDS ORDERED: FUROSEMIDE 100 MG/10 ML VIAL (J1940) IV ONE (23:30)
[2018-10-10] MEDS: IPRATROPIUM 0.5MG/ALBUTEROL 2.5MG INH SOL UD 3ML (DUONEB)(J7620) NEB SCH ×2 (23:34→23:53)
[2018-10-10 23:49] LABS: ABG BASE EXCESS 2.3 (-2.0-2.0); ABG O2 SATURATION 93.9 % (95.0-99.0); ABG PARTIAL PRESSURE CO2 32.9 mmHg (35.0-45.0); ABG PARTIAL PRESSURE O2 65.9 mmHg (75.0-100.0); ABG STANDARD HCO3 26.4 MEQ/L (22.0-26.0); ABG pH (ARTERIAL) 7.498 UNITS (7.350-7.450)
[2018-10-11] MEDS ORDERED: ISOVUE-370 76% 100ML VIAL (Q9967) As Ordered ONE (00:15)
[2018-10-11] MEDS ORDERED: diphenhydrAMINE INJ 50MG/ML VIAL (J1200) IV ONE (00:15)
[2018-10-11] MEDS ORDERED: cefTRIAXone SOD 1 GM in D5W MINI-BAG PLUS 50 ML IV ONE (00:15)
[2018-10-11] MEDS ORDERED: AZITHROMYCIN INJ 500 MG, VIAL MATE ADAPTER 1 EACH in D5W 250 ML IV ONE (00:15)
[2018-10-11] MEDS ORDERED: MOM 30ML SUSPENSION UDC PO PRN (00:45)
[2018-10-11] MEDS ORDERED: ACETAMINOPHEN TAB 650MG DOSE (2X325MG) PO PRN (00:45)
[2018-10-11] MEDS ORDERED: MAALOX 30 ML SUSP *UDC PO PRN (00:45)
[2018-10-11] MEDS ORDERED: ALBU83IN INH (00:58)
[2018-10-11] MEDS ORDERED: TOUJ1.2I SC (00:58)
[2018-10-11] MEDS ORDERED: FLUO10CA8 PO (00:58)
[2018-10-11] MEDS ORDERED: RANO1000 PO (00:58)
--- NOTE | 2018-10-11 01:04 | REPVR ---
EXAM: CT Angiography Chest With Contrast EXAM DATE/TIME: 10/11/2018 12:09 AM CLINICAL HISTORY: 73 years old, male; Signs and symptoms; Shortness of breath; Additional info: Hypoxia, SOB TECHNIQUE: Imaging protocol: Axial computed tomographic angiography images of the chest with intravenous contrast using CT angiography protocol. Coronal and sagittal reformatted images were created and reviewed. 3D rendering: MIP reconstructed images were created and reviewed. Radiation optimization: All CT scans at this facility use at least one of these dose optimization techniques: automated exposure control; mA and/or kV adjustment per patient size (includes targeted exams where dose is matched to clinical indication); or iterative reconstruction. Contrast material: ISO; Contrast volume: 75 ml; Contrast route: NOT AC; COMPARISON: CT ANGIO CHEST 04/16/2016 10:09 PM FINDINGS: PULMONARY ARTERIES: Enhancement within the pulmonary arteries is preserved bilaterally through the distal segmental levels, without evidence for acute pulmonary embolus. Diameter of the main pulmonary trunk at 4.1 cm could be correlated for pulmonary arterial hypertension. HEART AND AORTA: Cardiothoracic ratio is at the upper end of normal. Trace amount of pericardial fluid noted. There is reversal of ventricular ratio which could be correlated for mild right heart strain. There is coronary arterial calcification. Thoracic aortic diameter is at the upper end of normal, at 39.4 mm. No thoracic aortic dissection. There is thoracic aortic atherosclerosis. Visualized proximal great vessels within the superior mediastinum are preserved. MEDIASTINUM: No mediastinal gas. No mediastinal hematoma. Small amount of simple appearing fluid noted within the pericardial recesses . Small prevascular paratracheal and AP window lymph nodes are seen. There is a prominent azygoesophageal recess lymph node which measures 19.8 mm in short axis and is larger than on the prior study. Bilateral prominent hilar lymph nodes are seen measuring up to 3 cm in maximal dimension. These also appear larger than on the prior study. A few calcified lymph left hilar nodes are seen, consistent with prior granulomatous disease. For further evaluation of these enlarged lymph nodes consider short interval followup imaging, PET or soft tissue diagnosis, to exclude neoplasia as a cause. No periesophageal gas or fluid. LUNGS: Trace amount of pleural fluid on the right. No pneumothorax. Tiny reticulonodular opacities again noted, greatest within the right upper lobe which may be secondary to chronic lung disease. 10 mm nodular opacity within the right upper lobe (image 62, series 401) is new compared to the prior exam. 6.5 mm slightly spiculated appearing nodular opacity within the right upper lobe (image 69, series 401). These will require further assessment to exclude neoplasia. Mildly confluent 2.4 cm right lower lobe perihilar opacity is new compared to the prior exam. This could represent focal infiltrate. Mild acinar and ground glass opacities noted within the right lower lobe could be secondary to atelectasis or mild infiltrate/pneumonia. Approximately 6 cm area of consolidation within the left infrahilar lower lobe worrisome for pneumonia. Followup is advised, to confirm resolution. Scattered subpleural reticular opacities noted which may be secondary to atelectasis and/or scarring. UPPER ABDOMEN: No free air or free fluid within the visualized uppermost abdomen. No hiatal hernia. MSK AND BODY WALL: Mild bilateral gynecomastia. No acute fracture. Degenerative changes of the spine and bony thorax. No suspicious bone lesion. IMPRESSION: No evidence for acute pulmonary emboli to the distal segmental levels. Slightly enlarged mediastinal and hilar lymph nodes could be reactive, however neoplastic nodes cannot be excluded. There are scattered pulmonary opacities some of which may represent infiltrate/pneumonia. Pulmonary findings and recommendations discussed above in detail. Other incidental findings discussed above. Electronically signed by: Mejia Reis On 10/11/2018 01:03:32 AM
[2018-10-11] MEDS: IPRATROPIUM 0.5MG/ALBUTEROL 2.5MG INH SOL UD 3ML (DUONEB)(J7620) NEB SCH (01:10)
[2018-10-11] MEDS ORDERED: ONDANSETRON 4MG/2ML VIAL (J2405) IV ONE (01:15)
[2018-10-11] MEDS ORDERED: ONDANSETRON 4MG/2ML VIAL (J2405) As Ordered ONE (01:16)
--- NOTE | 2018-10-11 01:21 | HPEPDOC ---
General Date of Admission Date of Service: October 11, 2018 Chief Complaint The patient is a 73-year-old male admitted with a reason for visit of Resp Distress. Source: Patient, RN/, Old records History of Present Illness Mr. Alberto is a 73 years old man with hx/o COPD and chronic hypoxic respiratory failure on 2L home O2. he was recently admitted to the hospital for COPD and RSV viral infection in [place] this year. The pt comes to Er with c/o worsening SOB. Pt reports cold-like symptoms for a week: nasal congestion, dry cough, fatigue, headache, muscle ache and SOB. Pt also reports subjective fever yesterday. In the Er, pt was more hypoxic than usual, and required 3L O2. ABG showed no CO2 retention. WBC normal. CT shows small area of opacity on RLL. Pt is afebrile and hemodynamically stable. He was treated with Steroid and antibiotics in the ER. Home Medications Scheduled Aspirin (Aspirin) 325 Mg Tab, 325 MG PO DAILY, (Reported) Clopidogrel Bisulfate (Clopidogrel) 75 Mg Tab, 75 MG PO DAILY, (Reported) Fluoxetine Hcl (Fluoxetine HCl) 10 Mg Capsule, 30 MG PO DAILY, (Reported) Furosemide (Lasix) 40 Mg Tab, 40 MG PO QPM, (Reported) Furosemide (Furosemide) 40 Mg Tab, 80 MG PO DAILY, (Reported) Insulin Aspart (Novolog Flexpen) 100 Unit/Ml Inj, 1 DOSE SC ACHS, (Reported) PER SLIDING SCALE Insulin Glargine,Hum.rec.anlog (Toujeo Solostar) 300 Unit/Ml Inj, 30 UNIT SC DAILY, (Reported) Insulin Glargine,Hum.rec.anlog (Toujeo Solostar) 300 Unit/1 Ml Insuln.pen, 60 UNIT SC QHS, (Reported) Lisinopril (Lisinopril) 2.5 Mg Tab, 2.5 MG PO DAILY, (Reported) Magnesium Oxide (Magnesium Oxide) 400 Mg Tab, 400 MG PO DAILY, (Reported) Metoprolol Tartrate (Metoprolol Tartrate) 25 Mg Tab, 12.5 MG PO BID, (Reported) Omeprazole (Omeprazole) 20 Mg Tab, 20 MG PO BID, (Reported) Ranolazine (Ranolazine ER) 1,000 Mg Tab.er.12h, 1,000 MG PO BID, (Reported) Rosuvastatin Calcium (Rosuvastatin Calcium) 40 Mg Tab, 40 MG PO QHS, (Reported) Salmeterol/Fluticasone (Advair 500-50 Diskus) 28 Puff/Inhaler Aerp, 1 PUFF INH BID, (Reported) Spironolactone (Spironolactone) 25 Mg Tab, 12.5 MG PO Q2D, (Reported) Umeclidinium [place] (Incruse Ellipta) 62.5 Mcg/Inh Inh, 1 PUFF INH DAILY, (Reported) Scheduled PRN Albuterol Sulf (Albuterol Sulfate) 2.5 Mg/3 Ml Vial.neb, 2.5 MG INH QID PRN for SHORTNESS OF BREATH, (Reported) Albuterol Sulfate (Ventolin Hfa) 108 Mcg/Act Aer, 2 PUFF INH Q4H PRN for SHORTNESS OF BREATH, (Reported) Nitroglycerin (Nitrostat) 0.4 Mg Subl, 0.4 MG SL NITRO PRN for CHEST PAIN, (Reported) Allergies Coded Allergies: Cephalosporins (Verified Allergy, Intermediate, RASH, 10/11/18) RASH PER Penicillins (Verified Allergy, Intermediate, 10/10/18) rash clavulanic acid (Verified Allergy, Intermediate, 10/10/18) rash levofloxacin (Verified Allergy, Intermediate, 10/10/18) rash Past Medical History Medical History 1. Chronic obstructive pulmonary disease (COPD) on 2 liters oxygen supplement. 2. Type 2 diabetes. 3. Hypertension. 4. Dyslipidemia. 5. Diastolic congestive heart failure (CHF). 6. Obstructive sleep apnea on CPAP. 7. Obesity. 8. Coronary artery disease. PAST SURGICAL HISTORY: Cardiac stent. Cholecystectomy. Left lower extremity stenting. Family History Significant Family History: No pertinent family hx Social History * Smoker: former Smoker Alcohol: Denies Drugs: denies A-FIB/CHADSVASC A-FIB History Current/History of A-Fib/PAF?: No Review of Systems Constitutional: Reports: Fever, Malaise, Weakness, Fatigue; Denies: Chills, Lethargy Eyes: Denies: Pain ENT: Reports: Head Aches, Sinus Congestion; Denies: Dysphagia Skin: Denies: Rash, Lesions Pulmonary: Reports: Dyspnea, Cough Cardiovascular: Denies: Chest Pain, Edema Gastrointestinal: Denies: Nausea, Vomiting, Abdominal Pain, Diarrhea, Constipation Genitourinary: Denies: Dysuria, Frequency Musculoskeletal: Denies: Neck Pain, Back Pain Neurological: Reports: Weakness; Denies: Change in speech, Confusion, Seizures Psych: Reports: Mood Normal, Anxiety Physical Examination General Exam: Positive: Alert, Cooperative, No Acute Distress Eye Exam: Positive: PERRLA ENT Exam: Positive: Atraumatic Neck Exam: Positive: Supple; Negative: JVD Chest Exam: Positive: Clear to auscultation, Normal air movement, Rhonchi (rare scattered ronchi) Heart Exam: Positive: Rate Normal, Regular Rhythm Abdomen Exam: Positive: Normal bowel sounds, Soft; Negative: Tenderness Extremity Exam: Positive: Normal pulses; Negative: Edema Skin Exam: Positive: Nl turgor and temperature; Negative: Rash, Breakdown Neuro Exam: Positive: Normal Speech, Strength at 5/5 X4 ext Psych Exam: Positive: Mental status NL, Mood NL Vital Signs Vital Signs Date Time Temp Pulse Resp B/P (MAP) Pulse Ox O2 Delivery O2 Flow Rate FiO2 10/11/18 00:32 120/55 (76) 10/11/18 00:31 80 20 92 Nasal Cannula 3.0 Laboratory Data Labs 24H Laboratory Tests 2 10/10/18 22:51: Immature Granulocyte % (Auto) 0.6, White Blood Count 9.6, Red Blood Count 4.67, Hemoglobin 14.0, Hematocrit 42.7, Mean Corpuscular Volume 91.4, Mean Corpuscular Hemoglobin 30.0, Mean Corpuscular Hemoglobin Concent 32.8, Red Cell Distribution Width 13.8, Platelet Count 160, Neutrophils (%) (Auto) 79.0H, Lymphocytes (%) (Auto) 9.9L, Monocytes (%) (Auto) 10.1H, Eosinophils (%) (Auto) 0.2, Basophils (%) (Auto) 0.2, Neutrophils # (Auto) 7.6, Lymphocytes # (Auto) 1.0L, Monocytes # (Auto) 1.0H, Eosinophils # (Auto) 0.0, Basophils # (Auto) 0.0, Nucleated Red Blood Cells % (auto) 0.0, Prothrombin Time 13.3, Prothromb Time International Ratio 1.00, Anion Gap 9, Glomerular Filtration Rate > 60.0, Blood Urea Nitrogen 20H, Creatinine 1.24, Sodium Level 139, Potassium Level 4.0, Chloride Level 102, Carbon Dioxide Level 28, Calcium Level 8.3L, Total Creatine Kinase 30L, Creatine Kinase MB < 1.0, Creatine Kinase MB Relative Index 3.33, Troponin I < 0.02, YJ-Nod-E-Type Natriuretic Peptide 356H 10/10/18 23:45: Blood Gas Bicarbonate Standard 26.4H, Arterial Blood pH 7.498H, Arterial Blood Partial Pressure CO2 32.9L, Arterial Blood Partial Pressure O2 65.9L, Arterial Blood Total CO2 26.0, Arterial Blood HCO3 25.0, Arterial Blood Base Excess 2.3H, Arterial Blood Oxygen Saturation 93.9L CBC/BMP Laboratory Tests 10/10/18 22:51 Red Blood Count 4.67, Mean Corpuscular Volume 91.4, Mean Corpuscular Hemoglobin 30.0, Mean Corpuscular Hemoglobin Concent 32.8, Red Cell Distribution Width 13.8, Neutrophils (%) (Auto) 79.0 H, Lymphocytes (%) (Auto) 9.9 L, Monocytes (%) (Auto) 10.1 H, Eosinophils (%) (Auto) 0.2, Basophils (%) (Auto) 0.2, Neutrophils # (Auto) 7.6, Lymphocytes # (Auto) 1.0 L, Monocytes # (Auto) 1.0 H, Eosinophils # (Auto) 0.0, Basophils # (Auto) 0.0, Calcium Level 8.3 L, Total Creatine Kinase 30 L Assessment/Plan Mild Community Acquired Pneumonia, Bronchitis, COPD Exacerbation, Worsened Chronic Hypoxic Respiratory Failure - Keep in Obs overnight - IV Rocephin, Zithromax, Steroid, Nebs, Claritin, Tesslon pears - O2 as needed - Supportive care Continue home meds for other chronic illness. Plan / VTE VTE Prophylaxis Ordered?: Yes Plan Anticipated Discharge: Home RAJENDRA CAMEJO MD October 11, 2018 01:21
[2018-10-11] MEDS ORDERED: NITROGLYCERIN 0.4 MG SUBL TABLET SL PRN (01:30)
[2018-10-11] MEDS ORDERED: DEXTROSE 50% 50 ML SYRINGE IV PRN (01:45)
[2018-10-11] MEDS ORDERED: GLUCAGON FOR INJ 1 MG VIAL (J1610) SC PRN (01:45)
[2018-10-11] MEDS ORDERED: GLUCOSE 4 GM CHEW TABLET PO PRN (01:45)
[2018-10-11 02:50] VITALS: BP 119/56
[2018-10-11] MEDS: IPRATROPIUM 0.5MG/ALBUTEROL 2.5MG INH SOL UD 3ML (DUONEB)(J7620) INH SCH ×6 (04:00→23:49)
[2018-10-11 06:00] VITALS: BP 119/59
--- NOTE | 2018-10-11 06:10 | ECGEPIP ---
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
--- NOTE | 2018-10-11 08:10 | REP ---
PORTABLE CHEST X-RAY: Single view. HISTORY: Dyspnea. Comparison chest x-ray August 28 1018. FINDINGS: Today's radiograph is somewhat underexposed. There are increased markings in the bases bilaterally, the left more so than right consistent with infiltrate. There is some fissural thickening or fibrosis in the infrahilar region on the right unchanged. Heart is not enlarged. The aorta is somewhat tortuous and calcific. EKG electrodes are seen along with oxygen tubing. IMPRESSION: I cannot exclude bibasilar infiltrates. Electronically Signed by Guevara Presley MD 10/11/2018 03:51 P
[2018-10-11] MEDS: HEPARIN SOD (PORCINE) 5000 UNITS/ML VIAL SC SCH ×2 (08:39→21:30)
[2018-10-11] MEDS: methylPREDNISolone INJ 40 MG/1 ML VIAL (J2920) IV SCH ×2 (08:39→21:30)
[2018-10-11] MEDS: HumaLOG INSULIN (NovoLOG) PER UNIT SC SCH ×3 (08:39→16:23)
[2018-10-11] MEDS: ASPIRIN 325 MG TAB PO SCH (08:40)
[2018-10-11] MEDS: OMEPRAZOLE 20 MG CAP PO SCH ×2 (08:40→21:33)
[2018-10-11] MEDS: MAGNESIUM OXIDE 400 MG TAB (MAG-OX) PO SCH (08:40)
[2018-10-11] MEDS: METOPROLOL TART 12.5 MG PER 1/2 TAB PO SCH ×2 (08:40→21:00)
[2018-10-11] MEDS: FLUoxetine 10 MG CAP PO SCH (08:41)
[2018-10-11] MEDS: LORATADINE 10 MG TAB PO SCH (08:41)
[2018-10-11] MEDS: BENZONATATE 100 MG CAP PO SCH ×3 (08:41→21:32)
[2018-10-11] MEDS: LISINOPRIL *2.5 MG* TAB PO SCH (08:41)
[2018-10-11] MEDS: FUROSEMIDE 40 MG TAB PO SCH (08:41)
[2018-10-11] MEDS: RANOLAZINE 500 MG ER TAB PO SCH ×2 (08:41→21:32)
[2018-10-11] MEDS: CLOPIDOGREL 75 MG TAB PO SCH (08:41)
[2018-10-11] MEDS ORDERED: SPIRONOLACTONE 12.5MG PER 1/2 TABLET PO SCH (09:00)
[2018-10-11] MEDS: SENOKOT S TAB PO SCH (09:00)
[2018-10-11] MEDS ORDERED: LEVEMIR (INSULIN DETEMIR) 1 UNITS/0.01ML SC SCH ×2 (09:00→21:00)
--- NOTE | 2018-10-11 12:44 | IPNPDOC ---
Date Seen The patient was seen on 10/11/18. Progress Note SUBJECTIVE: Patient reports improvement in her shortness of breath this morning. He was very winded after walking to the bathroom he tells me he needs a stool softener but otherwise he feels though he is improved from yesterday otherwise patient denies chest pain, nausea, vomiting, fevers, chills OBJECTIVE PHYSICAL EXAMINATION: VITAL SIGNS: Please see below. GENERAL: Pleasant obese elderly mansitting on the edge of his bed awake alert oriented speaking in complete sentences he is mildly tachypnic HEENT: Moist mucous membranes no elevation and CVP CARDIOVASCULAR: S1 S2 regular no additional heart sounds appreciated. RESPIRATORY: Diffuse expiratory wheezes with prolonged expiration. ABDOMINAL: Bowel sounds present abdomen soft and nontender, grossly obese EXTREMITIES: No clubbing cyanosis or edema NEUROLOGICAL: Spontaneously moves all 4 extremities cranial 2 through 12 grossly intact no gross focal deficits appreciated PSYCHOLOGICAL: Appropriate LABORATORY DATA, MICROBIOLOGY: Please see below. IMAGING STUDIES: CT angiography chest:No evidence for acute pulmonary emboli to the distal segmental levels. Slightly enlarged mediastinal and hilar lymph nodes could be reactive, however neoplastic nodes cannot be excluded. There are scattered pulmonary opacities some of which may represent infiltrate/pneumonia. Pulmonary findings and recommendations discussed above in detail. DVT prophylaxis ordered?: Heparin every 12 ASSESSMENT AND PLAN: This is a 73-year-old man with shortness of breath. PROBLEMS: 1. Shortness of breath: Patient has known chronic hypoxic respiratory failure wi th a baseline of 2 L O2 continuously. History of former tobacco abuse as well as CHF. I suspicion of this is likely secondary to COPD and as such he is on azithromycin and Solu-Medrol and DuoNeb's. Thus far he is having good improvement. We'll continue to monitor I suspect she'll need additional 48-72 hours as he continues to improve. We'll have physical therapy and occupational therapy work with him. He appears fairly well compensated in terms of his congestive heart failure. We'll attempt weaning his O2 back to his baseline 2. Obstructive sleep apnea: Continue with home CPAP. 3. Congestive heart failure with preserved ejection fraction: Compensated continue with furosemide metoprolol and lisinopril 4. Coronary artery disease: Continue with aspirin and Crestor Plavix beta yazmin, continue with ranolazine no symptoms at this time 5.. Chronic kidney disease: Stable 6. Depression: Continue with fluoxetine 7. Gastroesophageal reflux disease: Continue with omeprazole 8. Hypertension: Continue with Aldactone and metoprolol and lisinopril and furosemide DISPOSITION: Pending clinical improvement. VS, I&O, 24H, Fishbone Vital Signs/I&O Vital Signs Date Time Temp Pulse Resp B/P (MAP) Pulse Ox O2 Delivery O2 Flow Rate FiO2 10/11/18 09:00 3.0 10/11/18 08:41 119/59 10/11/18 08:40 70 10/11/18 06:00 97.2 18 95 10/11/18 02:02 Nasal Cannula I&O- Last 24 Hours up to 6 AM 10/11/18 06:00 Intake Total 305 ml Output Total 875 ml Balance -570 ml Laboratory Data 24H LABS Laboratory Tests 2 10/10/18 22:51: Immature Granulocyte % (Auto) 0.6, White Blood Count 9.6, Red Blood Count 4.67, Hemoglobin 14.0, Hematocrit 42.7, Mean Corpuscular Volume 91.4, Mean Corpuscular Hemoglobin 30.0, Mean Corpuscular Hemoglobin Concent 32.8, Red Cell Distribution Width 13.8, Platelet Count 160, Neutrophils (%) (Auto) 79.0H, Lymphocytes (%) (Auto) 9.9L, Monocytes (%) (Auto) 10.1H, Eosinophils (%) (Auto) 0.2, Basophils (%) (Auto) 0.2, Neutrophils # (Auto) 7.6, Lymphocytes # (Auto) 1.0L, Monocytes # (Auto) 1.0H, Eosinophils # (Auto) 0.0, Basophils # (Auto) 0.0, Nucleated Red Blood Cells % (auto) 0.0, Prothrombin Time 13.3, Prothromb Time International Ratio 1.00, Anion Gap 9, Glomerular Filtration Rate > 60.0, Blood Urea Nitrogen 20H, Creatinine 1.24, Sodium Level 139, Potassium Level 4.0, Chloride Level 102, Carbon Dioxide Level 28, Calcium Level 8.3L, Total Creatine Kinase 30L, Creatine Kinase MB < 1.0, Creatine Kinase MB Relative Index 3.33, Troponin I < 0.02, JC-Lds-J-Type Natriuretic Peptide 356H 10/10/18 23:45: Blood Gas Bicarbonate Standard 26.4H, Arterial Blood pH 7.498H, Arterial Blood Partial Pressure CO2 32.9L, Arterial Blood Partial Pressure O2 65.9L, Arterial Blood Total CO2 26.0, Arterial Blood HCO3 25.0, Arterial Blood Base Excess 2.3H, Arterial Blood Oxygen Saturation 93.9L 10/11/18 07:57: 10/11/18 08:14: Bedside Glucose (Misc Panel) 266H 10/11/18 11:27: Bedside Glucose (Misc Panel) 333H CBC/BMP Laboratory Tests 10/10/18 22:51 Red Blood Count 4.67, Mean Corpuscular Volume 91.4, Mean Corpuscular Hemoglobin 30.0, Mean Corpuscular Hemoglobin Concent 32.8, Red Cell Distribution Width 13.8, Neutrophils (%) (Auto) 79.0 H, Lymphocytes (%) (Auto) 9.9 L, Monocytes (%) (Auto) 10.1 H, Eosinophils (%) (Auto) 0.2, Basophils (%) (Auto) 0.2, Neutrophils # (Auto) 7.6, Lymphocytes # (Auto) 1.0 L, Monocytes # (Auto) 1.0 H, Eosinophils # (Auto) 0.0, Basophils # (Auto) 0.0, Calcium Level 8.3 L, Total Creatine Kinase 30 L Microbiology Microbiology 10/11/18 Blood Culture, Received Pending 10/11/18 Blood Culture, Received Pending CHRISTY LEVIN MD October 11, 2018 12:44
[2018-10-11 13:12] LABS: HEMATOCRIT 42.3 % (42.0-52.0); HEMOGLOBIN 14.2 g/dl (13.5-17.5); MEAN CORPUSCULAR HEMOGLOBIN 30.8 pg (27.0-33.0); MEAN CORPUSCULAR HGB CONC 33.6 g/dl (32.0-36.5); MEAN CORPUSCULAR VOLUME 91.8 fl (80.0-96.0); PLATELET COUNT, AUTOMATED 170 10^3/uL (150-450); RED BLOOD COUNT 4.61 10^6/uL (4.30-6.10); WHITE BLOOD COUNT 9.6 10^3/uL (4.0-10.0)
[2018-10-11 13:56] LABS: CALCIUM LEVEL 8.3 MG/DL (8.8-10.2); CREATININE FOR GFR 1.69 MG/DL (0.70-1.30); GLOMERULAR FILTRATION RATE 42.4 (>42); POTASSIUM SERUM 4.5 MEQ/L (3.5-5.1)
[2018-10-11 14:00] VITALS: BP 118/54
[2018-10-11] MEDS ORDERED: HumaLOG INSULIN (NovoLOG) PER UNIT SC ONE ×4 (14:30→18:15)
[2018-10-11 19:43] VITALS: O2SAT 98
[2018-10-11] MEDS ORDERED: FUROSEMIDE 40 MG TAB PO SCH (21:00)
[2018-10-11] MEDS ORDERED: HumaLOG INSULIN (NovoLOG) PER UNIT SC SCH (21:00)
[2018-10-11] MEDS ORDERED: ROSUVASTATIN 10 MG TAB (CRESTOR) PO SCH (21:00)
[2018-10-11 22:00] VITALS: BP 106/50
[2018-10-11] MEDS ORDERED: AZITHROMYCIN INJ 500 MG, VIAL MATE ADAPTER 1 EACH in D5W 250 ML IV SCH (22:00)
[2018-10-11] MEDS ORDERED: cefTRIAXone SOD 1 GM in D5W MINI-BAG PLUS 50 ML IV SCH (22:00)
[2018-10-11 23:49] VITALS: O2SAT 99
[2018-10-12 02:47] VITALS: O2SAT 97
[2018-10-12] MEDS: IPRATROPIUM 0.5MG/ALBUTEROL 2.5MG INH SOL UD 3ML (DUONEB)(J7620) INH SCH ×3 (02:47→11:13)
[2018-10-12 06:00] VITALS: BP 109/57
[2018-10-12 08:24] LABS: HEMATOCRIT 39.7 % (42.0-52.0); HEMOGLOBIN 13.3 g/dl (13.5-17.5); MEAN CORPUSCULAR HEMOGLOBIN 30.6 pg (27.0-33.0); MEAN CORPUSCULAR HGB CONC 33.5 g/dl (32.0-36.5); MEAN CORPUSCULAR VOLUME 91.5 fl (80.0-96.0); PLATELET COUNT, AUTOMATED 190 10^3/uL (150-450); RED BLOOD COUNT 4.34 10^6/uL (4.30-6.10); WHITE BLOOD COUNT 11.8 10^3/uL (4.0-10.0)
[2018-10-12 08:38] LABS: CALCIUM LEVEL 8.3 MG/DL (8.8-10.2); CREATININE FOR GFR 1.46 MG/DL (0.70-1.30); GLOMERULAR FILTRATION RATE 50.2 (>42); POTASSIUM SERUM 4.5 MEQ/L (3.5-5.1)
[2018-10-12] MEDS: methylPREDNISolone INJ 40 MG/1 ML VIAL (J2920) IV SCH (08:44)
[2018-10-12] MEDS: HEPARIN SOD (PORCINE) 5000 UNITS/ML VIAL SC SCH (08:44)
[2018-10-12 08:46] VITALS: BP 108/58
[2018-10-12] MEDS: FLUoxetine 10 MG CAP PO SCH (08:46)
[2018-10-12] MEDS: METOPROLOL TART 12.5 MG PER 1/2 TAB PO SCH (08:46)
[2018-10-12] MEDS: FUROSEMIDE 40 MG TAB PO SCH (08:46)
[2018-10-12] MEDS: LISINOPRIL *2.5 MG* TAB PO SCH (08:46)
[2018-10-12] MEDS: OMEPRAZOLE 20 MG CAP PO SCH (08:47)
[2018-10-12] MEDS: ASPIRIN 325 MG TAB PO SCH (08:47)
[2018-10-12] MEDS: SENOKOT S TAB PO SCH (08:47)
[2018-10-12] MEDS: LORATADINE 10 MG TAB PO SCH (08:47)
[2018-10-12] MEDS: RANOLAZINE 500 MG ER TAB PO SCH (08:47)
[2018-10-12] MEDS: CLOPIDOGREL 75 MG TAB PO SCH (08:47)
[2018-10-12] MEDS: MAGNESIUM OXIDE 400 MG TAB (MAG-OX) PO SCH (08:47)
[2018-10-12] MEDS: BENZONATATE 100 MG CAP PO SCH (08:47)
[2018-10-12] MEDS: HumaLOG INSULIN (NovoLOG) PER UNIT SC SCH (08:48)
[2018-10-12] MEDS ORDERED: LEVEMIR (INSULIN DETEMIR) 1 UNITS/0.01ML SC SCH ×2 (09:00→21:00)
[2018-10-12] MEDS ORDERED: PRED10TA2 PO (10:44)
[2018-10-12] MEDS ORDERED: AZIT500T2 PO (10:44)
--- NOTE | 2018-10-12 14:06 | DS.PDOC ---
Discharge Summary General Date of Admission October 11, 2018 at 14:14 Date of Discharge 10.12.18 Discharge Summary DISCHARGE DIAGNOSIS: 1. Shortness of breath SECONDARY DIAGNOSIS: 2. Obstructive sleep apnea 3. Congestive heart failure with preserved ejection fraction 4. Coronary artery disease 5. Chronic kidney disease 6. Depression 7. Gastroesophageal reflux disease 8. Hypertension PROCEDURES PERFORMED DURING STAY: None CONSULTANTS:None HOSPITAL COURSE: During the course of Mr. Alberto's stay he was treated with Azithromycin for PNA and IV steroids for COPD exacerbation, he did have an elevation in WBC likely secondary to steroid use, as he was afebrile, procal was pending at time of d/c, blood cx were neg after 24 hours. He also did have an elevation in creatine/MARIAM likely secondary to his exacerbation, however on day of d/c his creatine was resolving. He did not complain of new back pain nor pain with urination during his stay. He was discharged with prednisone taper and 4 days of Azithromycin to complete 5 day course, he was made aware of this and to follow up with pcp and cardiology within 5-7 days of d/c he verbalized his understanding and had no questions. DISCHARGE MEDICATIONS: Please see below. ALLERGIES: Please see below. SUBJECTIVE: Mr. Alberto is laying in his bed and is comfortable, he states he is at his baseline respiratory status as far as breathing. He is no longer SOB. Otherwise patient denies chest pain, shortness, breath, nausea, vomiting, fevers, chills OBJECTIVE: PHYSICAL EXAMINATION: VITAL SIGNS: Please see below. GENERAL: Mr. Alberto is sitting up in bed awake alert oriented speaking in complete sentences no acute distress HEENT: Moist mucous membranes, no JVD, EOMI CARDIOVASCULAR: S1 S2 regular, no murmurs, rubs or gallops present RESPIRATORY: CTA b/l, no wheezing, rales or rhonchi, crackles, diffusely diminished throughout likely secondary to COPD and body habitus ABDOMINAL:nabsx4, no pain to palpation, no rebound ridgity or guarding, no hepatosplenomegaly or masses appreciated, no distension, obese EXTREMITIES: No clubbing, cyanosis, edema NEUROLOGICAL: Spontaneously moves all 4 extremities,no gross focal deficits appreciated PSYCHOLOGICAL: Appropriate affect LABORATORY DATA, MICROBIOLOGY: Please see below. IMAGING STUDIES: CXR 10.11.18 IMPRESSION: I cannot exclude bibasilar infiltrates CTA Chest 10.11.18 IMPRESSION: No evidence for acute pulmonary emboli to the distal segmental levels. Slightly enlarged mediastinal and hilar lymph nodes could be reactive, however neoplastic nodes cannot be excluded. There are scattered pulmonary opacities some of which may represent infiltrate/pneumonia. Pulmonary findings and recommendations discussed above in detail. Other incidental findings discussed above. ASSESSMENT AND PLAN: This is a 73 y/o male who presented to the ED with worsening SOB and admitted for COPD exacerbation and pneumonia. PROBLEMS: 1. Shortness of breath 2. Obstructive sleep apnea 3. Congestive heart failure with preserved ejection fraction 4. Coronary artery disease 5. Chronic kidney disease 6. Depression 7. Gastroesophageal reflux disease 8. Hypertension DISPOSITION: Stable to home DISCHARGE CONDITION: Improved and Stable [PROGNOSIS]: stable FOLLOW UP: Please follow up with PCP and pulmonology within 5-7 days of d/c ACTIVITY: As prior to admission DIET: As prior to admission TIME SPENT ON DISCHARGE: 35 minutes Vital Signs/I&Os Vital Signs Date Time Temp Pulse Resp B/P (MAP) Pulse Ox O2 Delivery O2 Flow Rate FiO2 10/12/18 08:50 3.0 10/12/18 08:46 69 108/58 10/12/18 06:00 97.3 18 96 10/12/18 02:47 Nasal Cannula I&O- Last 24 Hours up to 6 AM 10/12/18 06:00 Intake Total 1260 ml Output Total 1350 ml Balance -90 ml Laboratory Data Labs 24H Laboratory Tests 2 10/11/18 16:03: Bedside Glucose (Misc Panel) 415H 10/11/18 17:57: Bedside Glucose (Misc Panel) 366H 10/11/18 19:27: Bedside Glucose (Misc Panel) 304H 10/11/18 20:27: Bedside Glucose (Misc Panel) 326H 10/12/18 07:52: Bedside Glucose (Misc Panel) 281H 10/12/18 07:57: Nucleated Red Blood Cells % (auto) 0.0, Anion Gap 12, Glomerular Filtration Rate 50.2, Blood Urea Nitrogen 39H, Creatinine 1.46H, Sodium Level 137, Potassium Level 4.5, Chloride Level 98, Carbon Dioxide Level 27, Calcium Level 8.3L 10/12/18 11:17: Bedside Glucose (Misc Panel) 378H CBC/BMP Laboratory Tests 10/12/18 07:57 Red Blood Count 4.34, Mean Corpuscular Volume 91.5, Mean Corpuscular Hemoglobin 30.6, Mean Corpuscular Hemoglobin Concent 33.5, Red Cell Distribution Width 13.4, Calcium Level 8.3 L FSBS Laboratory Tests Test 10/11/18 16:03 10/11/18 17:57 10/11/18 19:27 10/11/18 20:27 Range/Units Bedside Glucose (Misc Panel) 415 366 304 326 83-110 MG/DL Test 10/12/18 07:52 10/12/18 11:17 Range/Units Bedside Glucose (Misc Panel) 281 378 83-110 MG/DL Microbiology Microbiology 10/11/18 Blood Culture - Preliminary, Resulted No growth after 24 hours . All specim... 10/11/18 Blood Culture - Preliminary, Resulted No growth after 24 hours . All specim... Discharge Medications Scheduled Aspirin (Aspirin) 325 Mg Tab, 325 MG PO DAILY, (Reported) Azithromycin (Azithromycin) 500 Mg Tablet, 500 MG PO DAILY Clopidogrel Bisulfate (Clopidogrel) 75 Mg Tab, 75 MG PO DAILY, (Reported) Fluoxetine Hcl (Fluoxetine HCl) 10 Mg Capsule, 30 MG PO DAILY, (Reported) Furosemide (Lasix) 40 Mg Tab, 40 MG PO QPM, (Reported) Furosemide (Furosemide) 40 Mg Tab, 80 MG PO DAILY, (Reported) Insulin Aspart (Novolog Flexpen) 100 Unit/Ml Inj, 1 DOSE SC ACHS, (Reported) PER SLIDING SCALE Insulin Glargine,Hum.rec.anlog (Toujeo Solostar) 300 Unit/Ml Inj, 30 UNIT SC DAILY, (Reported) Insulin Glargine,Hum.rec.anlog (Toujeo Solostar) 300 Unit/1 Ml Insuln.pen, 60 UNIT SC QHS, (Reported) Lisinopril (Lisinopril) 2.5 Mg Tab, 2.5 MG PO DAILY, (Reported) Magnesium Oxide (Magnesium Oxide) 400 Mg Tab, 400 MG PO DAILY, (Reported) Metoprolol Tartrate (Metoprolol Tartrate) 25 Mg Tab, 12.5 MG PO BID, (Reported) Omeprazole (Omeprazole) 20 Mg Tab, 20 MG PO BID, (Reported) Prednisone (Prednisone) 10 Mg Tablet, 10 MG PO TAPER Take 4 tabs daily x 3 days, then 3 tabs daily x 3 days, then 2 tabs daily x 3 days, then 1 tab daily x 3 days and stop Ranolazine (Ranolazine ER) 1,000 Mg Tab.er.12h, 1,000 MG PO BID, (Reported) Rosuvastatin Calcium (Rosuvastatin Calcium) 40 Mg Tab, 40 MG PO QHS, (Reported) Salmeterol/Fluticasone (Advair 500-50 Diskus) 28 Puff/Inhaler Aerp, 1 PUFF INH BID, (Reported) Spironolactone (Spironolactone) 25 Mg Tab, 12.5 MG PO Q2D, (Reported) Umeclidinium Ulman (Incruse Ellipta) 62.5 Mcg/Inh Inh, 1 PUFF INH DAILY, (Reported) Scheduled PRN Albuterol Sulf (Albuterol Sulfate) 2.5 Mg/3 Ml Vial.neb, 2.5 MG INH QID PRN for SHORTNESS OF BREATH, (Reported) Albuterol Sulfate (Ventolin Hfa) 108 Mcg/Act Aer, 2 PUFF INH Q4H PRN for SHORTNESS OF BREATH, (Reported) Nitroglycerin (Nitrostat) 0.4 Mg Subl, 0.4 MG SL NITRO PRN for CHEST PAIN, (Reported) Allergies Coded Allergies: Cephalosporins (Verified Allergy, Intermediate, RASH, 10/11/18) RASH PER Penicillins (Verified Allergy, Intermediate, 10/10/18) rash clavulanic acid (Verified Allergy, Intermediate, 10/10/18) rash levofloxacin (Verified Allergy, Intermediate, 10/10/18) rash GME ATTESTATION GME ATTESTATION My faculty preceptor for this patient encounter was physically present during the encounter and was fully available. All aspects of the patient interview, examination, medical decision making process, and medical care plan development were reviewed and approved by the faculty preceptor. The faculty preceptor is aware and concurs with the plan as stated in the body of this note and will attest to such by his/her cosignature. ATTENDING NOTE I saw and evaluated the patient. I agree with the findings and plan of care as documented in the resident's note. I spent 45 minutes coordinating this patient's discharge. SAVANNAH CADE DO Oct 12, 2018 14:05 CHRISTY LEVIN MD Oct 13, 2018 08:52
== END 2018-10-12 12:15 | disposition home or self-care (01) | DRG 190 ==
LOC: M ED 22:31 → M ED INP 22:32 → M MS5PR 10-11 02:24 → OBSVTOIN 10-11 14:14
PROVIDERS: ADMIT Internal Medicine; ATTEND Internal Medicine
DX: J44.1 Chronic obstructive pulmonary disease with (acute) exacerbation (principal); J18.9 Pneumonia, unspecified organism; J96.11 Chronic respiratory failure with hypoxia; I50.32 Chronic diastolic (congestive) heart failure; I13.0 Hypertensive heart and chronic kidney disease with heart failure and stage 1 through stage 4 chronic kidney disease, or unspecified chronic kidney disease; Z68.41 Body mass index [BMI] 40.0-44.9, adult; J44.0 Chronic obstructive pulmonary disease with (acute) lower respiratory infection; N18.9 Chronic kidney disease, unspecified; E11.9 Type 2 diabetes mellitus without complications; G47.33 Obstructive sleep apnea (adult) (pediatric); E66.9 Obesity, unspecified; I25.10 Atherosclerotic heart disease of native coronary artery without angina pectoris; Z99.81 Dependence on supplemental oxygen; Z87.891 Personal history of nicotine dependence; Z95.5 Presence of coronary angioplasty implant and graft; Z90.49 Acquired absence of other specified parts of digestive tract; Z95.820 Peripheral vascular angioplasty status with implants and grafts; Z79.82 Long term (current) use of aspirin; Z79.4 Long term (current) use of insulin; Z79.899 Other long term (current) drug therapy; Z88.1 Allergy status to other antibiotic agents

== ENCOUNTER 2018-11-22 01:36 | Emergency (ER) | payer MEDICARE ==
[~2018-11-22] VITALS: Ht 172.7 cm; Wt 125.0 kg
[~2018-11-22 01:36] MED LIST changes: +ALBU83IN INH; +AZIT500T2 PO; -DULO1CAP2 PO; +DULO1CAP5 PO; +FLUO10CA8 PO; +RANO1000 PO; -ROSU40TA3 PO; +ROSU40TA4 PO
[2018-11-22] MEDS ORDERED: D5W/0.45% SODIUM CHLORIDE 1,000 ML IV SCH (02:00)
[2018-11-22 02:09] LABS: VENOUS BASE EXCESS 0.1 (-2.0-2.0); VENOUS HCO3 24.7 MEQ/L (23.0-27.0); VENOUS PARTIAL PRESSURE O2 69.8 mmHg (30.0-50.0); VENOUS PH 7.409 UNITS (7.330-7.430); VENOUS STANDARD HCO3 24.5 MEQ/L
[2018-11-22 02:13] LABS: BASO # 0.1 10^3/uL (0.0-0.2); BASO % 0.5 % (0.0-1.0); EOS # 0.1 10^3/uL (0.0-0.50); EOS % 0.5 % (0.0-3.0); HEMATOCRIT 41.5 % (42.0-52.0); HEMOGLOBIN 13.5 g/dl (13.5-17.5); LYMPH # 1.8 10^3/uL (1.5-4.5); LYMPH % 15.9 % (24.0-44.0); MEAN CORPUSCULAR HEMOGLOBIN 30.3 pg (27.0-33.0); MEAN CORPUSCULAR HGB CONC 32.5 g/dl (32.0-36.5); MONO # 1.1 10^3/uL (0.0-0.8); MONO % 9.7 % (0.0-5.0); NEUTROPHILS % 72.7 % (36.0-66.0); PLATELET COUNT, AUTOMATED 215 10^3/uL (150-450); RED BLOOD COUNT 4.46 10^6/uL (4.30-6.10)
[2018-11-22 02:33] LABS: CALCIUM LEVEL 8.6 MG/DL (8.8-10.2); CREATININE FOR GFR 1.31 MG/DL (0.70-1.30); GLOMERULAR FILTRATION RATE 56.9 (>42); POTASSIUM SERUM 3.7 MEQ/L (3.5-5.1)
[2018-11-22 06:31] VITALS: BP 126/52
== END 2018-11-22 07:03 | disposition home or self-care (01) ==
LOC: M ED 01:36
DX: T38.3X1A Poisoning by insulin and oral hypoglycemic [antidiabetic] drugs, accidental (unintentional), initial encounter (principal); X58.XXXA Exposure to other specified factors, initial encounter; Y92.89 Other specified places as the place of occurrence of the external cause; E11.9 Type 2 diabetes mellitus without complications; J44.9 Chronic obstructive pulmonary disease, unspecified; Z79.4 Long term (current) use of insulin; Z79.899 Other long term (current) drug therapy; Z88.0 Allergy status to penicillin; Z88.1 Allergy status to other antibiotic agents; Z88.8 Allergy status to other drugs, medicaments and biological substances; Z87.891 Personal history of nicotine dependence

== ENCOUNTER → 2019-02-03 | Outpatient (CLI) | payer MEDICARE ==
[~2019-02-03] MED LIST changes: +ISOVUE-370 76% 100ML VIAL (Q9967) As Ordered ONE
--- NOTE | 2019-02-03 17:30 | REP ---
The of the chest with IV contrast for evaluation of adenopathy. Comparisons are 10/11/2018 and 06/07/2016. There are bulky subcarinal nodes measuring up to 17 ml short axis. These measured 22 ml on 10/11/2018 and 8 ml on 06/07/2016. There are borderline enlarged hilar and the and 10/11/2018 but appear somewhat larger than on 06/07/2016. There are calcifications within some of the left hilar nodes. This is unchanged from both prior studies. There is mild diffuse interstitial coarsening, unchanged from the prior studies. There is a ground-glass opacity in the right upper lobe, slightly worsened from 10/11/2018. There is a ground-glass opacity medially in the right lower lobe, not present previously. The focal consolidation identified in the left infrahilar zone previously has resolved. The thoracic aorta is unremarkable. Cardiac size is normal. There is no pericardial effusion. The visualized upper abdomen is unremarkable except for bilateral renal cortical scarring. Impression: Adenopathy as described. Chronic mild interstitial coarsening. Ground-glass densities as described. Electronically Signed by Ariel Gordillo MD 02/03/2019 05:21 P
== END ==
LOC: M RAD 14:00
PROVIDERS: ATTEND Internal Medicine Pulmonary Disease
DX: R59.0 Localized enlarged lymph nodes (principal)
CPT/HCPCS: 71260; Q9967

== ENCOUNTER 2019-02-08 18:26 | Emergency (ER) | payer MEDICARE ==
[~2019-02-08] VITALS: Ht 172.7 cm; Wt 121.4 kg
[~2019-02-08 18:26] MED LIST changes: -ISOVUE-370 76% 100ML VIAL (Q9967) As Ordered ONE
[2019-02-08] MEDS ORDERED: methylPREDNISolone INJ 125 MG/2 ML VIAL (J2930) IV ONE (18:45)
[2019-02-08] MEDS ORDERED: IPRATROPIUM 0.5MG/ALBUTEROL 2.5MG INH SOL UD 3ML (DUONEB)(J7620) NEB ONE (18:45)
[2019-02-08] MEDS ORDERED: ALBUTEROL SULFATE 2.5 MG/0.5 ML INH NEB SOLN INH ONE (18:45)
[2019-02-08 19:16] LABS: BASO % 0.4 % (0.0-1.0); EOS # 0.2 10^3/uL (0.0-0.5); EOS % 2.1 % (0.0-3.0); HEMATOCRIT 38.2 % (42.0-52.0); HEMOGLOBIN 12.6 g/dl (13.5-17.5); LYMPH # 0.8 10^3/uL (1.5-5.0); LYMPH % 9.8 % (24.0-44.0); MEAN CORPUSCULAR HEMOGLOBIN 30.4 pg (27.0-33.0); MONO # 0.7 10^3/uL (0.0-0.8); MONO % 7.8 % (0.0-5.0); NEUTROPHILS # 6.7 10^3/uL (1.5-8.5); NEUTROPHILS % 79.5 % (36.0-66.0); PLATELET COUNT, AUTOMATED 180 10^3/uL (150-450); RED BLOOD COUNT 4.15 10^6/uL (4.30-6.10); WHITE BLOOD COUNT 8.4 10^3/uL (4.0-10.0)
[2019-02-08 19:27] LABS: INR 1.12; PROTHROMBIN TIME 14.1 SECONDS (11.8-14.0)
--- NOTE | 2019-02-08 19:39 | ECGEPIP ---
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
[2019-02-08 20:00] LABS: ALBUMIN 2.3 GM/DL (3.2-5.2); ALT/SGPT 11 U/L (12-78); BILIRUBIN,DIRECT 0.2 MG/DL (0.0-0.2); BILIRUBIN,TOTAL 0.5 MG/DL (0.2-1.0); BLOOD UREA NITROGEN 19 MG/DL (7-18); CALCIUM LEVEL 8.1 MG/DL (8.8-10.2); CARBON DIOXIDE LEVEL 26 MEQ/L (21-32); CHLORIDE LEVEL 102 MEQ/L (98-107); CK-MB VALUE MASS < 1.0 NG/ML (<3.6); CPK CREATINE PHOSPHOKINASE 49 U/L (39-308); CREATININE FOR GFR 1.27 MG/DL (0.70-1.30); GLOMERULAR FILTRATION RATE 58.9 (>42); GLUCOSE, FASTING 160 MG/DL (70-100); MB/CK RELATIVE INDEX 2.04 (< OR =4); NT-PRO BNP 395 PG/ML (<450); POTASSIUM SERUM 3.8 MEQ/L (3.5-5.1); SODIUM LEVEL 138 MEQ/L (136-145); THYROXINE (T4) 6.5 UG/DL (4.5-12.0); TOTAL PROTEIN 5.7 GM/DL (6.4-8.2); TROPONIN I < 0.02 NG/ML (< 0.10)
[2019-02-08] MEDS ORDERED: AZITHROMYCIN INJ 500 MG, VIAL MATE ADAPTER 1 EACH in D5W 250 ML IV ONE (20:30)
[2019-02-08 21:15] VITALS: BP 152/70
[2019-02-08] MEDS ORDERED: PRED20TA PO (21:27)
--- NOTE | 2019-02-09 09:48 | REP ---
AP PORTABLE CHEST: 02/08/2019. Comparison: CT 02/03/2019, AP portable chest 10/10/2018. Clinical history: Dyspnea, cough. Findings: Two portable chest images were obtained at 2 minutes apart. Initial view was lordotic and the second view was even more lordotic. On the initial view there are bibasilar infiltrates and and/or atelectasis right greater than left with fairly dense consolidation on the right. On the second view which is the more lordotic these are not depicted well, they are posterior in the lower lung zones and obscured on the second view. Heart size magnified, however there is some left ventricular configuration and left atrial enlargement. There is calcified at the arch, mildly tortuous but unchanged. Airway intact. There is prominence of pulmonary arteries. The ted contours are unchanged. Bones show degenerative changes in the spine and shoulders. Impression: 1. Bibasilar infiltrates noted posteriorly in the lower lung zones based on the discussion above. 2. No gross effusion but it is difficult to exclude one in the posterior lower lung zones. 3. Some prominence of cardiac silhouette without pulmonary edema. Electronically Signed by Jonathan Pitt MD 02/09/2019 01:08 P
== END 2019-02-08 21:39 | disposition home or self-care (01) ==
LOC: M ED 18:26
DX: J44.1 Chronic obstructive pulmonary disease with (acute) exacerbation (principal); E11.9 Type 2 diabetes mellitus without complications; I10 Essential (primary) hypertension; K21.9 Gastro-esophageal reflux disease without esophagitis; Z99.81 Dependence on supplemental oxygen; Z88.0 Allergy status to penicillin; Z88.1 Allergy status to other antibiotic agents; Z88.8 Allergy status to other drugs, medicaments and biological substances; Z87.891 Personal history of nicotine dependence
CPT/HCPCS: 36600; 71045; 80048; 80076; 82550; 82553; 82803; 83605; 83880; 84436; 84443; 84484; 85025; 85610; 87040; 93005; 93041; 94640; 96374; 96375; 99285; J0456; J2930

== ENCOUNTER 2019-03-17 10:14 | Emergency (ER) | payer MEDICARE ==
[~2019-03-17] VITALS: Ht 172.7 cm; Wt 121.8 kg
[~2019-03-17 10:14] MED LIST changes: -AZIT500T2 PO; +AZIT500T5 PO; +OMEP-358 PO; -OMEP20TA PO
[2019-03-17 11:13] LABS: BILIRUBIN, URINE MANUAL OBSCURED (NEGATIVE); GLUCOSE, URINE (UA) MANUAL NEGATIVE (NEGATIVE); KETONE, URINE MANUAL OBSCURED mg/dL (NEGATIVE); UROBILINOGEN, URINE MANUAL OBSCURED mg/dl (NORMAL)
[2019-03-17] MEDS ORDERED: PHENAZOPYRIDINE 100 MG TAB PO ONE (11:15)
[2019-03-17 11:19] LABS: HYALINE CAST, URINE NONE SEEN /lpf (0-1); RBC, URINE TNTC /hpf (0-3); SQUAMOUS EPITHELIAL CELL URINE NONE SEEN /hpf (SMALL AMT)
[2019-03-17 11:20] LABS: BACTERIA, URINE SMALL AMOUNT
[2019-03-17] MEDS ORDERED: PYRI1TAB5 PO (12:25)
[2019-03-17] MEDS ORDERED: FOSFOMYCIN TROMETHAMINE 3 GM POWDER PACKET (MONUROL) PO ONE (12:30)
--- NOTE | 2019-03-17 12:45 | REP ---
CT of the abdomen pelvis without IV or bowel contrast for hematuria: Comparison is the CT angiogram of 03/09/2016. There is no hydronephrosis or hydroureter on the right or the left. There are vascular atheromatous calcifications in the kidneys. No renal collecting system calculi are identified. No ureteral calculi are identified. At the distal left ureter near the UVJ there is a calculus inferior to the left ureter, likely a phlebolith. There are no bladder calculi. The study is insensitive for renal masses in the absence of IV contrast. There is a parapelvic cyst in the right kidney. There is a renal cortical cyst in the lower pole of the left kidney seen to better advantage on the prior study with IV contrast, measuring 2.2 cm in diameter. There is mild bilateral perinephric stranding, not unusual for patient age. The cardiac size is upper normal. The visualized lung rosales are unremarkable. The unenhanced hepatic parenchyma, gallbladder, pancreas and spleen are unremarkable. The adrenals are unremarkable. Abdominal aorta is unremarkable except for calcified atheroma. There is no periaortic adenopathy or mass. The mesentery and bowel are unremarkable. Pelvis: The bladder is incompletely distended and cannot be further evaluated. The pelvic bowel loops are unremarkable except for occasional colon diverticula without diverticulitis. There is no ascites or adenopathy. Skeletal structures are unremarkable except for a advanced degenerative disc disease throughout the lumbar spine. This is unchanged. Impression: No hydronephrosis. Bilateral renal calculi, likely vascular atheromatous calcification. Phlebolith adjacent to the distal left ureter as described. No ureteral calculi. Right renal parapelvic cyst. Left renal cortical cyst. The study is insensitive for renal masses in the absence of IV contrast. Electronically Signed by Ariel Gordillo MD 03/17/2019 12:36 P
[2019-03-17 12:51] VITALS: BP 157/73
--- NOTE | 2019-03-18 08:55 | ED PDOC ---
Post-Departure Follow-Up radiology report faxed to PCP, Malka Arnold MD Mar 18, 2019 08:55
== END 2019-03-17 13:30 | disposition home or self-care (01) ==
LOC: M ED 10:14
DX: N39.0 Urinary tract infection, site not specified (principal); R31.9 Hematuria, unspecified; N18.3 Chronic kidney disease, stage 3 (moderate); Z87.891 Personal history of nicotine dependence; Z79.82 Long term (current) use of aspirin; Z79.4 Long term (current) use of insulin; Z79.899 Other long term (current) drug therapy

== ENCOUNTER → 2019-03-19 | Outpatient (CLI) | payer MEDICARE ==
[~2019-03-19] MED LIST changes: +PYRI1TAB5 PO
[2019-03-19 13:12] LABS: FREE T3 2.4 PG/ML (2.2-4.0); FREE T4 0.72 NG/DL (0.76-1.46); THYROID STIMULATING HORMONE 3.71 uIU/ML (0.358-3.740)
== END ==
LOC: M LAB 10:56
PROVIDERS: ATTEND Family Medicine
DX: E07.9 Disorder of thyroid, unspecified (principal)

== ENCOUNTER → 2019-03-20 | Outpatient (CLI) | payer MEDICARE ==
[~2019-03-20] MED LIST changes: +E-Z-GAS II EFFERVESCENT PACKET (SODIUM BICARB./CITRIC ACID/SIMETHICONE) As Ordered ONE; +E-Z-HD 98% w/w 340GM SUSP BTL As Ordered ONE; +E-Z-PAQUE 96% w/w SUSP 176GM BTL As Ordered ONE
--- NOTE | 2019-03-20 17:29 | REP ---
Upper GI air contrast The procedure was performed under the direct supervision of Dr. Presley. The images were reviewed with Dr. Presley The manager global communications film shows no organomegaly or pathological masses. The intestinal gas pattern is non-specific. Liquid barium and gas producing crystals were given in the erect position as well as liquid barium in the prone oblique position in order to perform a double contrast upper GI examination. The oral and pharyngeal stages of deglutition are unremarkable. There are esophageal transport there are tertiary waves demonstrated. There is no esophagitis stricture mucosal ring or hiatal hernia. Gastroesophageal reflux is not demonstrated on this examination. Within the stomach there are thickened folds which may represent gastritis. There is no luna ulcer identified. The duodenal colunga are normally outlined . The mucosal folds are smooth and regular. There is no duodenitis pancreatitis peptic ulcer disease or neoplasm. The visualized portion of the proximal small bowel appears normal in course and caliber. Impression: 1. Tertiary waves. 2. There are thickened folds in the stomach which may represent gastritis. There is no luna ulcer identified. 1.2 minutes of fluoro time was utilized for this procedure. Electronically Signed by CORY Hernandez 03/20/2019 04:12 P Electronically Signed by Guevara Presley MD 03/20/2019 05:20 P
== END ==
LOC: M RAD 10:30
PROVIDERS: ATTEND Family Medicine
DX: R11.0 Nausea (principal)

== ENCOUNTER 2019-06-21 12:44 | Emergency (ER) | payer MEDICARE ==
[~2019-06-21] VITALS: Ht 172.7 cm; Wt 124.1 kg
[~2019-06-21 12:44] MED LIST changes: -E-Z-GAS II EFFERVESCENT PACKET (SODIUM BICARB./CITRIC ACID/SIMETHICONE) As Ordered ONE; -E-Z-HD 98% w/w 340GM SUSP BTL As Ordered ONE; -E-Z-PAQUE 96% w/w SUSP 176GM BTL As Ordered ONE; +FLUO10CA15 PO; -FLUO10CA8 PO; -FLUO20CA19 PO; +FLUO20CA22 PO
[2019-06-21] MEDS ORDERED: NS 1,000 ML IV SCH (13:26)
--- NOTE | 2019-06-21 13:29 | REP ---
Clinical: Cough and dyspnea. Comparison: 02/08/2019. Findings: Stable cardiomegaly and chronic interstitial changes. Superimposed right lower lobe infiltrate/atelectasis cannot be excluded. No effusion. No pneumothorax. Skeletal structures intact. Impression: Chronic stable changes. Cannot exclude superimposed basilar atelectasis. Electronically Signed by Omid Greco MD 06/21/2019 01:21 P
[2019-06-21] MEDS ORDERED: methylPREDNISolone INJ 125 MG/2 ML VIAL (J2930) IV ONE (13:30)
[2019-06-21] MEDS ORDERED: IPRATROPIUM 0.5MG/ALBUTEROL 2.5MG INH SOL UD 3ML (DUONEB)(J7620) NEB PRN (13:30)
[2019-06-21] MEDS ORDERED: RANE1000 (13:47)
[2019-06-21 13:58] LABS: BASO % 0.3 % (0.0-1.0); EOS % 0.1 % (0.0-3.0); HEMATOCRIT 38.7 % (42.0-52.0); HEMOGLOBIN 11.9 g/dl (13.5-17.5); LYMPH # 0.5 10^3/uL (1.5-5.0); LYMPH % 4.8 % (24.0-44.0); MEAN CORPUSCULAR HEMOGLOBIN 26.7 pg (27.0-33.0); MEAN CORPUSCULAR HGB CONC 30.7 g/dl (32.0-36.5); MONO # 1.1 10^3/uL (0.0-0.8); MONO % 9.8 % (0.0-5.0); NEUTROPHILS # 9.1 10^3/uL (1.5-8.5); NEUTROPHILS % 84.3 % (36.0-66.0); PLATELET COUNT, AUTOMATED 168 10^3/uL (150-450); RED BLOOD COUNT 4.45 10^6/uL (4.30-6.10); WHITE BLOOD COUNT 10.8 10^3/uL (4.0-10.0)
[2019-06-21] MEDS ORDERED: ISOS60TA2 (14:05)
[2019-06-21 14:10] LABS: INR 1.18; PROTHROMBIN TIME 14.7 SECONDS (11.8-14.0)
[2019-06-21 14:15] LABS: ABG BASE EXCESS 0.2 (-2.0-2.0); ABG HCO3 23.3 MEQ/L (22.0-26.0); ABG O2 SATURATION 92.4 % (95.0-99.0); ABG PARTIAL PRESSURE CO2 32.9 mmHg (35.0-45.0); ABG PARTIAL PRESSURE O2 62.2 mmHg (75.0-100.0); ABG STANDARD HCO3 24.6 MEQ/L (22.0-26.0); ABG TOTAL CO2 24.3 MEQ/L (23.0-31.0); ABG pH (ARTERIAL) 7.468 UNITS (7.350-7.450)
[2019-06-21 14:29] LABS: BLOOD UREA NITROGEN 18 MG/DL (7-18); CARBON DIOXIDE LEVEL 26 MEQ/L (21-32); CHLORIDE LEVEL 106 MEQ/L (98-107); CK-MB VALUE MASS < 1.0 NG/ML (<3.6); CPK CREATINE PHOSPHOKINASE 58 U/L (39-308); CREATININE FOR GFR 1.25 MG/DL (0.70-1.30); GLOMERULAR FILTRATION RATE 59.9 (>42); GLUCOSE, FASTING 117 MG/DL (70-100); MB/CK RELATIVE INDEX 1.72 (< OR =4); NT-PRO BNP 1007 PG/ML (<450); SODIUM LEVEL 141 MEQ/L (136-145); TROPONIN I < 0.02 NG/ML (< 0.10)
[2019-06-21 14:39] LABS: INFLUENZA A AMPLIFICATION NEGATIVE (NEGATIVE); INFLUENZA B AMPLIFICATION NEGATIVE (NEGATIVE)
[2019-06-21] MEDS ORDERED: LEVALBUTEROL 1.25 MG/0.5 ML CONCENTRATE NEB NEB ONE (15:00)
[2019-06-21 16:16] VITALS: BP 152/73
[2019-06-21] MEDS ORDERED: DOXY100C37 PO (16:35)
[2019-06-21] MEDS ORDERED: PRED20TA PO (16:35)
--- NOTE | 2019-06-21 17:53 | ECGEPIP ---
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
== END 2019-06-21 16:53 | disposition home or self-care (01) ==
LOC: M ED 12:44
DX: J44.1 Chronic obstructive pulmonary disease with (acute) exacerbation (principal); E11.9 Type 2 diabetes mellitus without complications; I11.9 Hypertensive heart disease without heart failure; Z79.4 Long term (current) use of insulin; Z79.51 Long term (current) use of inhaled steroids; Z79.82 Long term (current) use of aspirin; Z88.0 Allergy status to penicillin; Z88.8 Allergy status to other drugs, medicaments and biological substances
CPT/HCPCS: 71045; 80048; 82550; 82553; 82803; 83605; 83880; 84484; 85025; 85610; 87502; 93005; 93041; 96361; 96374; 99285; J2930

== ENCOUNTER 2019-07-02 19:44 | Emergency (ER) | payer MEDICARE ==
[~2019-07-02] VITALS: Ht 172.7 cm; Wt 118.6 kg
[~2019-07-02 19:44] MED LIST changes: +DOXY100C37 PO; +ISOS60TA2; +RANE1000
[2019-07-02 20:50] LABS: BASO # 0.1 10^3/uL (0.0-0.2); BASO % 0.6 % (0.0-1.0); EOS # 0.1 10^3/uL (0.0-0.5); EOS % 0.6 % (0.0-3.0); HEMATOCRIT 40.6 % (42.0-52.0); HEMOGLOBIN 12.6 g/dl (13.5-17.5); LYMPH # 1.8 10^3/uL (1.5-5.0); LYMPH % 12.8 % (24.0-44.0); MEAN CORPUSCULAR HEMOGLOBIN 26.7 pg (27.0-33.0); MONO # 1.2 10^3/uL (0.0-0.8); MONO % 8.5 % (0.0-5.0); NEUTROPHILS # 10.5 10^3/uL (1.5-8.5); NEUTROPHILS % 75.3 % (36.0-66.0); PLATELET COUNT, AUTOMATED 235 10^3/uL (150-450); RED BLOOD COUNT 4.72 10^6/uL (4.30-6.10); WHITE BLOOD COUNT 13.9 10^3/uL (4.0-10.0)
[2019-07-02 21:06] LABS: INR 1.02; PARTIAL THROMBOPLASTIN TIME 25.3 SECONDS (25.0-38.4); PROTHROMBIN TIME 13.1 SECONDS (11.8-14.0)
[2019-07-02 21:10] LABS: CALCIUM LEVEL 8.4 MG/DL (8.8-10.2); CREATININE FOR GFR 1.29 MG/DL (0.70-1.30); GLOMERULAR FILTRATION RATE 57.8 (>42); POTASSIUM SERUM 4.5 MEQ/L (3.5-5.1)
--- NOTE | 2019-07-02 21:49 | REPVR ---
PROCEDURE INFORMATION: Exam: CT Head Without Contrast Exam date and time: 07/02/2019 9:02 PM Age: 74 years old Clinical indication: Injury or trauma; Fall; Initial encounter; Blunt trauma (contusions or hematomas); Consciousness not specified; Additional info: Head injury TECHNIQUE: Imaging protocol: Computed tomography of the head without contrast. Radiation optimization: All CT scans at this facility use at least one of these dose optimization techniques: automated exposure control; mA and/or kV adjustment per patient size (includes targeted exams where dose is matched to clinical indication); or iterative reconstruction. COMPARISON: CT Head without contrast 06/10/2016 8:52 AM FINDINGS: Brain: No intracranial mass, focal mass effect or midline shift. No acute intracranial hemorrhage. Moderate decreased attenuation in periventricular/centrum semiovale white matter. No focal effacement of cortical sulci to indicate acute cortical infarct. Old appearing left basal ganglia lacunar infarct. Ventricles: Prominent ventricles and CSF spaces suggest parenchymal volume loss. Bones/joints: No calvarial fracture or destructive process. Sinuses: Visualized paranasal sinuses are unremarkable. Mastoid air cells: Mastoid air cells are normally aerated. Orbits: Visualized globes and orbits are unremarkable. Soft tissues: No focal extracranial soft tissue swelling. IMPRESSION: 1. No acute intracranial abnormality. 2. Atrophy and chronic microangiopathic change in supratentorial white matter. Electronically signed by: Arvin Hanna On 07/02/2019 21:48:51 PM
--- NOTE | 2019-07-02 21:49 | REPVR ---
PROCEDURE INFORMATION: Exam: CT Cervical Spine Without Contrast Exam date and time: 07/02/2019 9:02 PM Age: 74 years old Clinical indication: Injury or trauma; Fall; Initial encounter; Blunt trauma; Additional info: Head injury TECHNIQUE: Imaging protocol: Computed tomography images of the cervical spine without contrast. Radiation optimization: All CT scans at this facility use at least one of these dose optimization techniques: automated exposure control; mA and/or kV adjustment per patient size (includes targeted exams where dose is matched to clinical indication); or iterative reconstruction. COMPARISON: US Duplex,carotid (complete) 09/19/2017 11:09 AM FINDINGS: No traumatic segmental malalignment of cervical spine or craniocervical junction. Vertebral body height is maintained at all levels. No acute fracture. No destructive or blastic cervical spine osseous lesion. Intervertebral disc height is decreased at multiple levels, with typical degenerative pattern and associated endplate, articular pillar and uncovertebral spurs. Prevertebral soft tissues demonstrate no asymmetry. No concerning abnormality of the imaged lung apices. IMPRESSION: No acute fracture or traumatic subluxation of the cervical spine. 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 Electronically signed by: Arvin Hanna On 07/02/2019 21:49:28 PM
--- NOTE | 2019-07-02 21:52 | REPVR ---
PROCEDURE INFORMATION: Exam: CT Chest Without Contrast Exam date and time: 07/02/2019 9:06 PM Age: 74 years old Clinical indication: Injury or trauma; Fall; Initial encounter; Blunt trauma (contusions or hematomas); Injury details: Right sided rib pain; Additional info: Rib eval TECHNIQUE: Imaging protocol: Computed tomography of the chest without contrast. 3D rendering: MIP and/or 3D reconstructed images were created by the technologist. Radiation optimization: All CT scans at this facility use at least one of these dose optimization techniques: automated exposure control; mA and/or kV adjustment per patient size (includes targeted exams where dose is matched to clinical indication); or iterative reconstruction. COMPARISON: CT Chest with contrast 02/03/2019 2:27 PM FINDINGS: Limited trauma evaluation without IV contrast. No mediastinal hematoma. Thoracic aorta is atherosclerotic and tortuous. No focal aneurysm No hemothorax or pneumothorax. Miniscule dependent pleural effusions, transudate density with adjacent atelectasis. No evidence of lung contusion, aspiration or concerning lung mass. Chronic reticulonodular infiltrates, stable. Acute appearing anterior right 6th and 7th rib fractures. Bilateral subacute rib fractures are also demonstrated, unchanged since the prior exam. . IMPRESSION: Acute nondisplaced fractures involving the right 6th and 7th ribs with no pneumothorax or lung contusion. Miniscule bilateral transudate density pleural effusions, similar to the prior CT, and stable reticulonodular interstitial infiltrates. Electronically signed by: Arvin Hanna On 07/02/2019 21:52:34 PM
[2019-07-02 21:59] VITALS: BP 130/53
[2019-07-02] MEDS ORDERED: BUPIVACAINE LIPOSOME/PF 1.3% 20ML VIAL (13.3MG/ML)(EXPAREL)(C9290 PER1MG) INFIL ONE (22:00)
--- NOTE | 2019-07-03 07:06 | ED PDOC ---
Post-Departure Follow-Up radiology rpeort faxed to Malka Arnold MD Jul 03, 2019 07:06
== END 2019-07-02 23:15 | disposition home or self-care (01) ==
LOC: M ED 19:44
DX: S22.41XA Multiple fractures of ribs, right side, initial encounter for closed fracture (principal); W01.10XA Fall on same level from slipping, tripping and stumbling with subsequent striking against unspecified object, initial encounter; Y92.9 Unspecified place or not applicable; Y93.9 Activity, unspecified; Y99.9 Unspecified external cause status; I25.10 Atherosclerotic heart disease of native coronary artery without angina pectoris; E11.9 Type 2 diabetes mellitus without complications; I10 Essential (primary) hypertension; J44.9 Chronic obstructive pulmonary disease, unspecified; E66.9 Obesity, unspecified; Z87.891 Personal history of nicotine dependence; M51.9 Unspecified thoracic, thoracolumbar and lumbosacral intervertebral disc disorder; Z99.81 Dependence on supplemental oxygen; Z79.82 Long term (current) use of aspirin; Z79.4 Long term (current) use of insulin; Z79.899 Other long term (current) drug therapy; Z88.0 Allergy status to penicillin; Z88.1 Allergy status to other antibiotic agents; Z88.8 Allergy status to other drugs, medicaments and biological substances
CPT/HCPCS: 64420; 70450; 71250; 72125; 80048; 85025; 85610; 85730; 99284; C9290

== ENCOUNTER 2019-10-20 12:22 | Inpatient (IN) | payer MEDICARE ==
[~2019-10-20] VITALS: Ht 172.7 cm; Wt 125.7 kg
[~2019-10-20 12:22] MED LIST changes: +ASPIRIN 325 MG TAB PO SCH; +LISI-1034 PO; -LISI-1046 PO; +LISI2.5T2 PO; -LISI2.5T76 PO; -RANE1000
[2019-10-20] MEDS ORDERED: ASPIRIN 81 MG CHEW TABLET PO ONE (12:45)
[2019-10-20 12:53] LABS: BASO # 0.1 10^3/uL (0.0-0.2); BASO % 0.5 % (0.0-1.0); EOS # 0.1 10^3/uL (0.0-0.5); EOS % 0.7 % (0.0-3.0); HEMATOCRIT 35.9 % (42.0-52.0); HEMOGLOBIN 10.7 g/dl (13.5-17.5); LYMPH # 0.7 10^3/uL (1.5-5.0); LYMPH % 6.6 % (24.0-44.0); MEAN CORPUSCULAR HEMOGLOBIN 24.8 pg (27.0-33.0); MEAN CORPUSCULAR HGB CONC 29.8 g/dl (32.0-36.5); MEAN CORPUSCULAR VOLUME 83.3 fl (80.0-96.0); MONO # 0.7 10^3/uL (0.0-0.8); MONO % 6.5 % (0.0-5.0); NEUTROPHILS # 9.3 10^3/uL (1.5-8.5); NEUTROPHILS % 84.8 % (36.0-66.0); PLATELET COUNT, AUTOMATED 234 10^3/uL (150-450); RED BLOOD COUNT 4.31 10^6/uL (4.30-6.10)
[2019-10-20] MEDS: IPRATROPIUM 0.5MG/ALBUTEROL 2.5MG INH SOL UD 3ML (DUONEB)(J7620) NEB PRN ×3 (13:02→13:43)
[2019-10-20] MEDS ORDERED: FLUTISP (13:09)
[2019-10-20 13:33] LABS: ALT/SGPT 21 U/L (12-78); BILIRUBIN,DIRECT < 0.1 MG/DL (0.0-0.2); BILIRUBIN,TOTAL 0.5 MG/DL (0.2-1.0); TOTAL PROTEIN 6.6 GM/DL (6.4-8.2)
[2019-10-20] MEDS ORDERED: FUROSEMIDE 40MG/4ML VIAL (J1940) IV ONE ×2 (14:00→21:00)
[2019-10-20 14:04] LABS: BLOOD UREA NITROGEN 18 MG/DL (7-18); CALCIUM LEVEL 8.2 MG/DL (8.8-10.2); CARBON DIOXIDE LEVEL 27 MEQ/L (21-32); CHLORIDE LEVEL 104 MEQ/L (98-107); CREATININE FOR GFR 1.14 MG/DL (0.70-1.30); GLOMERULAR FILTRATION RATE > 60.0 (>42); GLUCOSE, FASTING 137 MG/DL (70-100); NT-PRO BNP 912 PG/ML (<450); POTASSIUM SERUM 4.4 MEQ/L (3.5-5.1); SODIUM LEVEL 138 MEQ/L (136-145)
[2019-10-20] MEDS ORDERED: DEXTROSE 50% 50 ML SYRINGE IV PRN (15:00)
[2019-10-20] MEDS ORDERED: IPRATROPIUM 0.5MG/ALBUTEROL 2.5MG INH SOL UD 3ML (DUONEB)(J7620) NEB PRN (15:00)
[2019-10-20] MEDS ORDERED: GLUCAGON INJ 1MG VIAL SC PRN (15:00)
[2019-10-20] MEDS ORDERED: GLUCOSE 4GM CHEW TABLET PO PRN (15:00)
--- NOTE | 2019-10-20 15:13 | HPEPDOC ---
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 Patient has been following with Dr. Crespo, pulmonology as an outpatient. Patient reports that hes been experiencing slow progressive shortness of breath. Upon evaluation with pulmonology today, patient was found to be severely hypoxic in their office and EMS was called for transfer to ER. Patient reports that he experiences worsening shortness of breath with exertion. He does report a cough without any expectoration. Patient uses 3 L of nasal cannula at baseline and is currently on 5 L. Patient denies any fevers but has e xperienced chills. Denies any swelling of his lower extremities. Denies chest pain, palpitations or shortness of breath when lying flat. Patient denies nausea, vomiting, diaphoresis, abdominal pain, constipation or diarrhea reported. Last bowel movement was yesterday. Denies any urinary discomfort. Patient reports that he is compliant with his medications. He shouldnt was not given any instructions for fluid restrictions. His appetite has been poor, but has reported weight gain of 7 pounds over the last 1 week Home Medications Scheduled Aspirin (Aspirin) 325 Mg Tab, 325 MG PO DAILY, (Reported) Clopidogrel Bisulfate (Clopidogrel) 75 Mg Tab, 75 MG PO DAILY, (Reported) Fluticasone Propionate (Fluticasone Propionate) 16 Gm [place].susp, NA DAILY, (Reported) Furosemide (Lasix) 40 Mg Tab, 40 MG PO QPM, (Reported) Furosemide (Furosemide) 40 Mg Tab, 80 MG PO DAILY, (Reported) Insulin Aspart (Novolog Flexpen) 100 Unit/Ml Inj, 1 DOSE SC ACHS, (Reported) PER SLIDING SCALE Insulin Glargine,Hum.rec.anlog (Toujeo Solostar) 300 Unit/Ml Inj, 30 UNIT SC DAILY, (Reported) Insulin Glargine,Hum.rec.anlog (Traukim Solostar) 300 Unit/1 Ml Insuln.pen, 60 UNIT SC QHS, (Reported) Isosorbide Mononitrate (Isosorbide Mononitrate ER) 60 Mg Tab.er.24h, DAILY, (Reported) Lisinopril (Lisinopril) 2.5 Mg Tab, 2.5 MG PO DAILY, (Reported) Magnesium Oxide (Magnesium Oxide) 400 Mg Tab, 400 MG PO DAILY, (Reported) Metoprolol Tartrate (Metoprolol Tartrate) 25 Mg Tab, 12.5 MG PO BID, (Reported) Omeprazole (Omeprazole) 20 Mg Tab, 20 MG PO BID, (Reported) Ranolazine (Ranexa) 1,000 Mg Tab.er.12h, BID, (Reported) Rosuvastatin Calcium (Rosuvastatin Calcium) 40 Mg Tab, 40 MG PO QHS, (Reported) Salmeterol/Fluticasone (Advair 500-50 Diskus) 28 Puff/Inhaler Aerp, 1 PUFF INH BID, (Reported) Spironolactone (Spironolactone) 25 Mg Tab, 12.5 MG PO Q2D, (Reported) Umeclidinium [place] (Incruse Ellipta) 62.5 Mcg/Inh Inh, 1 PUFF INH DAILY, (Reported) Scheduled PRN Albuterol Sulf (Albuterol Sulfate) 2.5 Mg/3 Ml Vial.neb, 2.5 MG INH QID PRN for SHORTNESS OF BREATH, (Reported) Albuterol Sulfate (Ventolin Hfa) 108 Mcg/Act Aer, 2 PUFF INH Q4H PRN for SHORT NESS OF BREATH, (Reported) Nitroglycerin (Nitrostat) 0.4 Mg Subl, 0.4 MG SL NITRO PRN for CHEST PAIN, (Reported) Allergies Coded Allergies: Cephalosporins (Verified Allergy, Intermediate, RASH, 06/21/19) RASH PER Penicillins (Verified Allergy, Intermediate, RASH, 06/21/19) clavulanic acid (Verified Allergy, Intermediate, RASH, 06/21/19) levofloxacin (Verified Allergy, Intermediate, RASH, 06/21/19) Past Medical History Medical History COPD / Chronic hypoxic respiratory failure (on 3L NC O2), JAELYN on CPAP, CAD s/p stent (x7, most recent >2 years ago), Diastolic CHF, HTN, IDDM2, DLP, Peripheral vascular disease (s/p LLE stent), Morbid obesity Surgical History Cholecystectomy Cardiac stenting ~2017 Left lower extremity stenting 2018 Family History - Family history was reviewed and is noncontributory to this hospitalization Social History - Denies the use of alcohol or illicit drugs; patient reports he quit smoking approximately 30 years ago but was a smoker of greater than 20 years at 3 PPD - Denies recent travel or sick contacts - Lives with - Occupation; patient is retired but used to work at [employer] Review of Systems Other systems 10 point review of systems complete, all negative otherwise stated in HPI Vital Signs - Vitals: BP 134/69, HR 69, RR 22, Sat 90%NC5L, Temp 97.0F - General: Lying in bed, Appears comfortable with mild SOB, AAOx3 - HEENT: NC, AT, PERRLA, EOMI - CVS: RRR, +S1S2 - Lungs: Fair air entry bilaterally, No appreciable wheezing / rhonchi, faint crackles can be appreciated at bilateral lower lung rosales - Abdomen: Soft, Non-distended, Non-tender - Extremities: No lower extremity edema, No calf tenderness - Neuro: No focal motor or sensory deficit - Skin: No visible rashes Laboratory Data Labs 24H Laboratory Tests 2 10/20/19 12:39: Immature Granulocyte % (Auto) 0.9, Neutrophils (%) (Auto) 84.8H, Lymphocytes (%) (Auto) 6.6L, Monocytes (%) (Auto) 6.5H, Eosinophils (%) (Auto) 0.7, Basophils (%) (Auto) 0.5, Neutrophils # (Auto) 9.3H, Lymphocytes # (Auto) 0.7L, Monocytes # (Auto) 0.7, Eosinophils # (Auto) 0.1, Basophils # (Auto) 0.1, Nucleated Red Blood Cells % (auto) 0.0, Total Bilirubin 0.5, Direct Bilirubin < 0.1, Aspartate Amino Transf (AST/SGOT) 21, Alanine Aminotransferase (ALT/SGPT) 21, Alkaline Phosphatase 94, Total Protein 6.6, Albumin 3.0L, Albumin/Globulin Ratio 0.8 10/20/19 12:40: POC Glucose (Misc Panel) 163H, POC Sodium (Misc Panel) 135L, POC Potassium (Misc Panel) 6.6*H, POC Chloride (Misc Panel) 102, POC Total CO2 (Misc Panel) 28.0H, POC Blood Urea Nitrogen (Misc Panel 23, POC Ionized Calcium (Misc Panel) 3.8L, POC Creatinine (Misc Panel) 1.2, POC Hematocrit (Misc Panel) 35.0L 10/20/19 12:43: POC Troponin I (Misc) 0.04 10/20/19 12:54: Anion Gap 7L, Glomerular Filtration Rate > 60.0, Calcium Level 8.2L, NL-Dah-H-Type Natriuretic Peptide 912H 10/20/19 13:02: POC pH (Misc Panel) 7.459H, POC Base Excess (Misc Panel) 1.0, POC Saturated Percent O2 (Misc) 85L, POC pO2 (Misc Panel) 47.0*L, POC pCO2 (Misc Panel) 34.9L, POC HCO3 (Misc Panel) 24.8, POC Total CO2 (Misc Panel) 26.0 CBC/BMP Laboratory Tests 10/20/19 12:39 10/20/19 12:54 Microbiology Microbiology 10/20/19 Respiratory Virus Panel (PCR) ([facility]) - Final, Complete 10/20/19 Blood Culture, Received Pending 10/20/19 Blood Culture, Received Pending Plan / VTE VTE Prophylaxis Ordered?: Yes Plan Plan Acute hypoxic respiratory failure - possibly 2/2 fluid overload - possibly 2/2 decompensated diastolic CHF - Patient presented to the hospital, slowly progressive shortness of breath - While visiting talent analyst, patient was found to be severely hypoxic; and was placed on a nonrebreather mask - Currently, patient is feeling better after receiving Lasix - Physical does reveal faint crackles at bilateral lower lung rosales - Elevated BNP - Troponin first set negative; will trend - Mild leukocytosis, - Respiratory panel / COVID19 10/19: Negative, Blood cultures pending - CXR 10/19: With evidence of interstitial edema - s/p Furosemide 40 IV in ER - Will c/w strict ins/outs, daily weight, fluid restrictions - Will get ECHO - c/w Furosemide IV Normocytic anemia - Hemoglobin appears to be stable - No evidence of bleeding COPD / Chronic hypoxic respiratory failure (on 3L NC O2) - No evidence of exacerbation at this time - Continue with inhaled therapy as ordered JAELYN on CPAP - May allow home CPAP use while inpatient CAD s/p stent (x7, most recent >2 years ago) - Patient denies any chest pain or palpitations - EKG reviewed and is consistent with priors on record - Troponin first set negative; will continue trend - c/w ASA and Plavix HTN - BP well controlled - c/w Isosorbide mononitrate / Lisinopril / Metoprolol with holding parameters IDDM2 - Will start ISS and Adjust dose of levemir DLP - c/w Rosuvastatin Peripheral vascular disease - s/p LLE stent - c/w ASA and Plavix Morbid obesity - Complicating medical care GERD - c/w Omeprazole DVT prophylaxis - Will start Heparin GRACE HARDING MD Oct 20, 2019 15:13
[2019-10-20] MEDS ORDERED: FLUO10CA15 PO (15:52)
[2019-10-20] MEDS ORDERED: NITROGLYCERIN 0.4 MG SUBL TABLET SL PRN (16:15)
[2019-10-20 16:30] VITALS: BP 166/84
--- NOTE | 2019-10-20 16:40 | REP ---
REASON: Cough and dyspnea. COMPARISON: 10/16/2019 The technique utilized in obtaining the radiograph has magnified the cardiac silhouette and accentuated the interstitial markings. Bibasilar opacities and bilateral CP angle blunting persist, status quo. There is cardiomegaly accentuated by technique. There is a diffuse increase in the interstitial markings throughout the lung rosales with a haziness throughout the pulmonary vascularity, status quo. There is no change in the osseous structures. IMPRESSION: Cardiomegaly and interstitial edema suspected with bilateral pleural effusions and other bibasilar opacities, which are unchanged. They should be correlated clinically with appropriate followup. Electronically Signed by Oscar Moreno DO 10/20/2019 05:06 P
[2019-10-20] MEDS ORDERED: SLF 3 ML SYR IV PRN (16:45)
[2019-10-20 16:50] LABS: CK-MB VALUE MASS 1.2 NG/ML (<3.6); CPK CREATINE PHOSPHOKINASE 63 U/L (39-308); TROPONIN I 0.06 NG/ML (< 0.10)
[2019-10-20] MEDS ORDERED: FUROSEMIDE 40MG/4ML VIAL (J1940) IV SCH (17:00)
[2019-10-20] MEDS: HumaLOG INSULIN (NovoLOG) PER UNIT SC SCH ×2 (17:39→20:24)
[2019-10-20] MEDS: FLUTICASONE PROP 0.05% NASAL SPRAY 16 GM (FLONASE) SCH (17:39)
[2019-10-20] MEDS: SPIRONOLACTONE 25 MG TAB PO SCH (17:40)
[2019-10-20] MEDS: FLUoxetine 10 MG CAP PO SCH (17:40)
[2019-10-20] MEDS: ISOSORBIDE MON. (IMDUR) 60 MG XR TAB PO SCH (17:40)
[2019-10-20] MEDS: MAGNESIUM OXIDE 400 MG TAB (MAG-OX) PO SCH (17:40)
[2019-10-20] MEDS: CLOPIDOGREL 75 MG TAB PO SCH (17:40)
[2019-10-20] MEDS: LISINOPRIL *2.5 MG* TAB PO SCH (17:40)
[2019-10-20] MEDS: ADVAIR HFA 230/21MCG INHALER INH SCH (19:34)
[2019-10-20] MEDS: IPRATROPIUM 0.5MG/ALBUTEROL 2.5MG INH SOL UD 3ML (DUONEB)(J7620) NEB SCH (19:34)
[2019-10-20 20:00] VITALS: BP 115/59
[2019-10-20 20:30] VITALS: BP 102/56
[2019-10-20] MEDS: METOPROLOL TART 25 MG TABLET PO SCH (20:33)
[2019-10-20] MEDS ORDERED: LEVEMIR (INSULIN DETEMIR) 1 UNITS/0.01ML SC SCH (21:00)
[2019-10-20] MEDS: OMEPRAZOLE 20 MG CAP PO SCH (21:04)
[2019-10-20] MEDS: RANOLAZINE 500 MG ER TAB PO SCH (21:04)
[2019-10-20] MEDS: ROSUVASTATIN 10 MG TAB (CRESTOR) PO SCH (21:04)
[2019-10-20] MEDS: HEPARIN SOD (PORCINE) 5000UNITS/ML VIAL (J1644 PER 1000UNITS) SC SCH (21:04)
[2019-10-20] MEDS: SLF 3 ML SYR IV SCH (21:05)
--- NOTE | 2019-10-20 21:05 | ECGEPIP ---
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
--- NOTE | 2019-10-20 21:05 | ECHO ---
DATE OF PROCEDURE: 10/20/2019 REFERRING PHYSICIAN: Dr. Flex Joseph INDICATION: Dyspnea Weight is 126 kg and height is 68 inches which corresponds to 172 cm. DIMENSIONS: IVS: 1.5 LV: 4.4 LVPW: 1.4 LA: 3.6 Aorta: 3.3 IVC: 2.2 Mitral E wave velocity: 106 A wave: 117 E prime septal: 2.6 E prime lateral: 6.5 FINDINGS: The study is of difficult technical quality corresponding to patient's body habitus. The patient is in sinus rhythm. Normal left ventricular (LV) size with moderate left ventricular hypertrophy (LVH) and preserved LV systolic function, estimated ejection fraction (EF) around 65%. No segmental wall motion abnormalities are appreciated. There is systolic flattening to interventricular septum. Right ventricle was poorly seen, but it appears at least mildly dilated. Left atrium is at least mildly enlarged. Right atrium was poorly visualized. Aortic valve is tricuspid. It is heavily sclerotic but mobility seems preserved. There are mild degenerative abnormalities of mitral valve. Tricuspid and pulmonic valves were poorly visualized but grossly appear normal. Small noncompressive pericardial effusion is noted. Inferior vena cava is dilated, and there is no appreciable collapse with inspiration, indicative of very high central venous pressure. Aortic root appears normal. Aortic arch and abdominal aorta were not well seen. Doppler interrogation reveals competent aortic and mitral valves without significant stenosis or insufficiency, either. There is mild tricuspid insufficiency. Calculated pulmonary artery pressure is at least 90 mmHg corresponding to severe pulmonary hypertension. Mitral inflow pattern and tissue Doppler imaging of mitral annulus revealed grade 1 diastolic dysfunction. CONCLUSIONS: 1. Study is of fair technical quality, the patient is in sinus rhythm. 2. Normal left ventricular (LV) size with moderate left ventricular hypertrophy (LVH), LVH, preserved LV systolic function and grade 1 diastolic dysfunction. 3. Poorly visualized right ventricle. 4. No hemodynamically significant valvular disease. 5. Severely elevated central venous pressure and severe pulmonary hypertension (pulmonary artery pressure at least 90 mmHg). 6. Small noncompressive pericardial effusion. COMMENT: The study is most supportive of secondary pulmonary hypertension related to congestive heart failure.
[2019-10-21] VITALS: BP 128/67
[2019-10-21] MEDS: IPRATROPIUM 0.5MG/ALBUTEROL 2.5MG INH SOL UD 3ML (DUONEB)(J7620) NEB SCH ×4 (01:20→19:38)
[2019-10-21 04:00] VITALS: BP 146/68
[2019-10-21] MEDS: HEPARIN SOD (PORCINE) 5000UNITS/ML VIAL (J1644 PER 1000UNITS) SC SCH ×3 (05:21→21:29)
[2019-10-21] MEDS: SLF 3 ML SYR IV SCH ×3 (05:21→21:33)
[2019-10-21 05:40] LABS: BASO # 0.1 10^3/uL (0.0-0.2); BASO % 0.9 % (0.0-1.0); EOS # 0.1 10^3/uL (0.0-0.5); EOS % 1.4 % (0.0-3.0); HEMATOCRIT 32.6 % (42.0-52.0); HEMOGLOBIN 10.1 g/dl (13.5-17.5); LYMPH # 1.4 10^3/uL (1.5-5.0); LYMPH % 15.1 % (24.0-44.0); MEAN CORPUSCULAR HEMOGLOBIN 25.5 pg (27.0-33.0); MEAN CORPUSCULAR VOLUME 82.3 fl (80.0-96.0); MONO # 0.9 10^3/uL (0.0-0.8); MONO % 9.8 % (0.0-5.0); NEUTROPHILS # 6.7 10^3/uL (1.5-8.5); NEUTROPHILS % 72.3 % (36.0-66.0); PLATELET COUNT, AUTOMATED 241 10^3/uL (150-450); RED BLOOD COUNT 3.96 10^6/uL (4.30-6.10); WHITE BLOOD COUNT 9.3 10^3/uL (4.0-10.0)
[2019-10-21 06:04] LABS: BLOOD UREA NITROGEN 16 MG/DL (7-18); CARBON DIOXIDE LEVEL 27 MEQ/L (21-32); CHLORIDE LEVEL 108 MEQ/L (98-107); GLOMERULAR FILTRATION RATE > 60.0 (>42); GLUCOSE, FASTING 53 MG/DL (70-100); MAGNESIUM LEVEL 2.3 MG/DL (1.8-2.4); POTASSIUM SERUM 3.8 MEQ/L (3.5-5.1); SODIUM LEVEL 142 MEQ/L (136-145)
[2019-10-21] MEDS: HumaLOG INSULIN (NovoLOG) PER UNIT SC SCH ×4 (07:30→19:41)
[2019-10-21] MEDS: ADVAIR HFA 230/21MCG INHALER INH SCH ×2 (07:33→19:38)
[2019-10-21 08:00] VITALS: BP 136/72
[2019-10-21] MEDS: FUROSEMIDE 40MG/4ML VIAL (J1940) IV SCH ×2 (08:26→17:20)
[2019-10-21] MEDS: ASPIRIN 325 MG TAB PO SCH (08:26)
[2019-10-21] MEDS: RANOLAZINE 500 MG ER TAB PO SCH ×2 (08:26→21:30)
[2019-10-21] MEDS: ISOSORBIDE MON. (IMDUR) 60 MG XR TAB PO SCH (08:26)
[2019-10-21] MEDS: SPIRONOLACTONE 25 MG TAB PO SCH (08:27)
[2019-10-21] MEDS: LISINOPRIL *2.5 MG* TAB PO SCH (08:27)
[2019-10-21] MEDS: CLOPIDOGREL 75 MG TAB PO SCH (08:27)
[2019-10-21] MEDS: FLUoxetine 10 MG CAP PO SCH (08:27)
[2019-10-21] MEDS: OMEPRAZOLE 20 MG CAP PO SCH ×2 (08:27→21:31)
[2019-10-21] MEDS: FLUTICASONE PROP 0.05% NASAL SPRAY 16 GM (FLONASE) SCH (08:27)
[2019-10-21] MEDS: MAGNESIUM OXIDE 400 MG TAB (MAG-OX) PO SCH (08:27)
[2019-10-21 12:00] VITALS: BP 148/88
--- NOTE | 2019-10-21 13:43 | IPNPDOC ---
Text Note Date of Service The patient was seen on 10/21/19. NOTE Subjective: Feels a little better this am. SOB is better though needing 5 liters of oxygen. No fever or chils, no chest pain. However he says that he feels very cold. Was hypoglycemic to 52 this am. Physical Exam: - Vitals: As below - General: Lying in bed, Appears comfortable with mild SOB, AAOx3 - HEENT: NC, AT, PERRLA, EOMI - CVS: RRR, +S1S2 - Lungs: Fair air entry bilaterally, No appreciable wheezing / rhonchi, faint crackles can be appreciated at bilateral lower lung rosales - Abdomen: Soft, Non-distended, Non-tender - Extremities: No lower extremity edema, No calf tenderness - Neuro: No focal motor or sensory deficit - Skin: No visible rashes Labs and Radiology: reviewed. 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 Patient has been following with Dr. Crespo, pulmonology as an outpatient. Patient reports that hes been experiencing slow progressive shortness of breath. Upon evaluation with pulmonology today, patient was found to be severely hypoxic in their office and EMS was called for transfer to ER. Patient reports that he experiences worsening shortness of breath with exertion. He does report a cough without any expectoration. Patient uses 3 L of nasal cannula at baseline and is currently on 5 L. Acute on chronic hypoxic respiratory failure - 2/2 fluid overload - 2/2 decompensated diastolic CHF and right heart failure. - Patient presented to the hospital, slowly progressive shortness of breath - While visiting commissary manager, patient was found to be severely hypoxic; and was placed on a nonrebreather mask - Currently, patient is feeling better after receiving Lasix - Respiratory panel / COVID19 10/19: Negative, Blood cultures pending - CXR 10/19: With evidence of interstitial edema - Will c/w strict ins/outs, daily weight, fluid restrictions Echo shows: Normal left ventricular (LV) size with moderate left ventricular hypertrophy (LVH), LVH, preserved LV systolic function and grade 1 diastolic dysfunction. Poorly visualized right ventricle. No hemodynamically significant valvular disease. Severely elevated central venous pressure and severe pulmonary hypertension (pulmonary artery pressure at least 90 mmHg). Small noncompressive pericardial effusion. - c/w Furosemide IV Normocytic anemia - Hemoglobin appears to be stable - No evidence of bleeding COPD / Chronic hypoxic respiratory failure (on 3L NC O2)/ Severe pulmonary hypertension. - No evidence of exacerbation at this time - Continue with inhaled therapy as ordered JAELYN on CPAP/ Morbid obesity. - May allow home CPAP use while inpatient -BMI 42.7 CAD s/p stent (x7, most recent >2 years ago) - Patient denies any chest pain or palpitations - EKG reviewed and is consistent with priors on record, trops negative. - c/w ASA and Plavix HTN - BP well controlled - c/w Isosorbide mononitrate / Lisinopril / Metoprolol with holding parameters IDDM2 - Will start ISS and Adjust dose of levemir -Was hypoglycemia, dose fo levemir reduced from 50 to 30. DLP - c/w Rosuvastatin Peripheral vascular disease - s/p LLE stent - c/w ASA and Plavix Morbid obesity - Complicating medical care GERD - c/w Omeprazole DVT prophylaxis - Will start Heparin VS,Fishbone, I+O VS, Fishbone, I+O Laboratory Tests 10/21/19 05:18 Vital Signs Date Time Temp Pulse Resp B/P (MAP) Pulse Ox O2 Delivery O2 Flow Rate FiO2 10/21/19 12:00 97.9 71 20 148/88 (108) 95 Nasal Cannula 5.0 I&O- Last 24 Hours up to 6 AM 10/21/19 06:00 Intake Total 420 ml Output Total 1000 ml Balance -580 ml LORENE MITCHELL MD Oct 21, 2019 13:42
--- NOTE | 2019-10-21 13:54 | IPN ---
DATE OF SERVICE: 10/21/2019 I saw the patient yesterday in my office and sent him to the emergency room for severe hypoxia. On my interview this afternoon around 12:00 p.m., the patient states he is feeling better. He is not quite back to normal, but he is not "gasping" for his life. He has had significant urine output that he describes that I do not believe is yet documented. He was net negative 500 mL as of yesterday. He has no chest discomfort and he has no significant lower extremity edema. Chest x-ray in the ER was consistent with heart failure. PHYSICAL EXAMINATION: Temperature is 97.9, pulse is 71, respiratory rate is 20, blood pressure is 148/88 with a MAP of 108, and oxygen saturation is 95% on 5 liters. Usual oxygen level is 2-3 liters at home. General: Awake, alert and oriented. Affect and mood are appropriate. Speech is much more clear and less dyspneic. HEENT: Sclerae clear, anicteric. Pupils equal, reactive to light. Mucous membranes are moist without lesions. Oropharynx without erythema or exudate. Cardiac: Distant. S1, S2. Without audible murmur, rub or gallop. Jugular venous pulse (JVP) is difficult to assess due to body habitus. Point of maximal impulse (PMI) is also difficult to palpate due to body habitus. Pulmonary: Rales at the bases, otherwise clear to auscultation. No rhonchi or wheeze. There is no prolongation of the expiratory phase. Abdomen is obese, soft, nontender, nondistended. There is no discernible hepatosplenomegaly; however, there is significant obesity. Extremities: Less edema than on prior exams.. Hands are cool, but peripheral pulses are palpable at radial locations and symmetric. Musculoskeletal: The patient was not ambulated. Muscle tone adequate for stated age. No evidence of unilateral weakness. LABORATORY EVALUATION: Shows a white blood cell count now down to 9.3 from 11, hemoglobin is 10.1, platelet count of 241, 0 bands. Sodium is 142, potassium 3.8, chloride 108, bicarb of 27, BUN of 16, creatinine of 1.10. Arterial blood gas in the ER showed a pH of 7.46, pCO2 of 35 and a pAO2 low at 47. Reportedly, this was done on a non rebreather. Chest x-ray from yesterday shows cardiomegaly with interstitial edema, bilateral pleural effusions and cephalization. No obvious dense infiltrate. Blood cultures are pending. Viral panel is negative. Also negative for COVID. IMPRESSION: Severe hypoxia likely secondary to decompensated heart failure. Surprisingly, the patient had more volume in the chest rather than lower extremity edema; however, clearly improved with the use of Lasix. Recommend continuing diuresis. [place]. If you have any further questions or concerns, please feel free to call the pulmonary service as he is not on our rounding schedule currently.
[2019-10-21 16:00] VITALS: BP 120/58
[2019-10-21 20:00] VITALS: BP 121/72
[2019-10-21] MEDS: LEVEMIR (INSULIN DETEMIR) 1 UNITS/0.01ML SC SCH (21:00)
[2019-10-21] MEDS: ROSUVASTATIN 10 MG TAB (CRESTOR) PO SCH (21:30)
[2019-10-21] MEDS: METOPROLOL TART 25 MG TABLET PO SCH (21:30)
[2019-10-22] VITALS: BP 140/68
[2019-10-22] MEDS: IPRATROPIUM 0.5MG/ALBUTEROL 2.5MG INH SOL UD 3ML (DUONEB)(J7620) NEB SCH ×4 (01:27→20:00)
[2019-10-22 04:00] VITALS: BP 110/55
[2019-10-22 05:09] LABS: BASO # 0.1 10^3/uL (0.0-0.2); EOS # 0.2 10^3/uL (0.0-0.5); EOS % 1.8 % (0.0-3.0); LYMPH # 1.1 10^3/uL (1.5-5.0); LYMPH % 12.2 % (24.0-44.0); MEAN CORPUSCULAR HEMOGLOBIN 25.3 pg (27.0-33.0); MEAN CORPUSCULAR HGB CONC 30.3 g/dl (32.0-36.5); MEAN CORPUSCULAR VOLUME 83.3 fl (80.0-96.0); MONO # 0.9 10^3/uL (0.0-0.8); MONO % 9.1 % (0.0-5.0); NEUTROPHILS % 75.4 % (36.0-66.0); PLATELET COUNT, AUTOMATED 214 10^3/uL (150-450); RED BLOOD COUNT 3.96 10^6/uL (4.30-6.10); WHITE BLOOD COUNT 9.3 10^3/uL (4.0-10.0)
[2019-10-22 05:31] LABS: BLOOD UREA NITROGEN 18 MG/DL (7-18); CARBON DIOXIDE LEVEL 27 MEQ/L (21-32); CHLORIDE LEVEL 106 MEQ/L (98-107); CREATININE FOR GFR 1.08 MG/DL (0.70-1.30); GLOMERULAR FILTRATION RATE > 60.0 (>42); GLUCOSE, FASTING 147 MG/DL (70-100); MAGNESIUM LEVEL 2.2 MG/DL (1.8-2.4); POTASSIUM SERUM 3.9 MEQ/L (3.5-5.1); SODIUM LEVEL 139 MEQ/L (136-145)
[2019-10-22] MEDS: HEPARIN SOD (PORCINE) 5000UNITS/ML VIAL (J1644 PER 1000UNITS) SC SCH ×3 (05:40→20:16)
[2019-10-22] MEDS: SLF 3 ML SYR IV SCH ×3 (05:40→20:18)
[2019-10-22] MEDS: ADVAIR HFA 230/21MCG INHALER INH SCH ×2 (07:19→20:11)
[2019-10-22 07:46] VITALS: BP 117/61
[2019-10-22] MEDS: ASPIRIN 325 MG TAB PO SCH (09:36)
[2019-10-22] MEDS: HumaLOG INSULIN (NovoLOG) PER UNIT SC SCH ×4 (09:36→20:18)
[2019-10-22] MEDS: FUROSEMIDE 40MG/4ML VIAL (J1940) IV SCH ×2 (09:37→17:31)
[2019-10-22] MEDS: LISINOPRIL *2.5 MG* TAB PO SCH (09:37)
[2019-10-22] MEDS: MAGNESIUM OXIDE 400 MG TAB (MAG-OX) PO SCH (09:37)
[2019-10-22] MEDS: FLUTICASONE PROP 0.05% NASAL SPRAY 16 GM (FLONASE) SCH (09:37)
[2019-10-22] MEDS: CLOPIDOGREL 75 MG TAB PO SCH (09:37)
[2019-10-22] MEDS: ISOSORBIDE MON. (IMDUR) 60 MG XR TAB PO SCH (09:38)
[2019-10-22] MEDS: OMEPRAZOLE 20 MG CAP PO SCH ×2 (09:38→20:17)
[2019-10-22] MEDS: SPIRONOLACTONE 25 MG TAB PO SCH (09:39)
--- NOTE | 2019-10-22 10:50 | IPNPDOC ---
Subjective Date Seen The patient was seen on 10/22/19. Subjective Chief Complaint/HPI Timoteo is feeling much better since yesterday. Offers no complaints of shortness of breath General: Denies: ROS Unobtainable, Chills, Night Sweats, Fatigue, Malaise, Normal Appetite, Other Symptoms Constitutional: Denies: Chills, Fever, Malaise, Night Sweats, Weakness, Fatigue, Weight Loss, Lethargy, Other Eyes: Denies: Pain, Vision change, Conjunctivae inflammation, Eyelid in flammation, Redness, Other ENT: Denies: Head Aches, Ear Pain, Dysphagia, Sinus Congestion, Post Nasal Drip, Sore Throat, Epistaxis, Other Symptoms Skin: Denies: Rash, Lesions, Jaundice, Bruising, Itching, Dry, Breakdown, Nail Changes, Other Pulmonary: Denies: Dyspnea, Cough, Pleuritic Chest Pain, Other Symptoms Cardiovascular: Denies: Chest Pain, Palpitations, Orthopnea, Paroxysmal Noc. Dyspnea, Edema, Lt Headedness, Other Symptoms Gastrointestinal: Denies: Nausea, Vomiting, Abdominal Pain, Diarrhea, Constipation, Melena, Hematochezia, Other Symptoms Hematologic: Denies: Bruising, Bleeding Excessively, Petecchia, Purpura, Enlarged Lymph Nodes, Other Hematologic Endocrine: Denies: Polydipsia, Polyphagia, Polyuria, Heat Intolerance, Cold Intolerance, Other Endocrine Sx Musculoskeletal: Denies: Neck Pain, Back Pain, Shoulder Pain, Arm Pain, Hand Pain, Leg Pain, Foot Pain, Joint Pain, Muscle Pain, Spasms, Other Symptoms Neurological: Denies: Weakness, Numbness, Incoordination, Change in speech, Confusion, Seizures, Other Symptoms Psych: Denies: Mood Normal, Anxiety, Depression, Memory Issues, Thoughts of Self Harm, Anger, Thoughts of Harming Other, Other Psych Objective Physical Examination General Exam: Positive: Alert, Cooperative Eye Exam: Positive: PERRLA, Conjunctiva & lids normal ENT Exam: Positive: Atraumatic Neck Exam: Positive: Supple Chest Exam: Positive: Other (minimum crackles at bases) Heart Exam: Positive: Rate Normal, Normal S1, Normal S2 Abdomen Exam: Positive: Normal bowel sounds, Soft Extremity Exam: Positive: Normal pulses Skin Exam: Positive: Nl turgor and temperature Neuro Exam: Positive: Strength at 5/5 X4 ext, Sensation Intact, Cranial Nerves 3-12 NL Psych Exam: Positive: Oriented x 3 Assessment /Plan Problems (1) Acute diastolic CHF (congestive heart failure) Status: Acute Problem Text: Assessment and Plan: Patient is a 74-year-old male with a PMHx of COPD / Chronic hypoxic respiratory failure (on 3L NC O2), JAELYN on CPAP, CAD s/p stent (x7, most recent >2 years ago), Diastolic CHF, HTN, IDDM2, DLP, Peripheral vascular disease (s/p LLE stent), Morbid obesity, who was 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 Patient has been following with Dr. Crespo, pulmonology as an outpatient. Patient reports that hes been experiencing slow progressive shortness of breath. Upon evaluation with pulmonology today, patient was found to be severely hypoxic in their office and EMS was called for transfer to ER. Acute and chronic respiratory failure, most likely secondary to decompensated acute diastolic heart failure and right-sided heart failure Patient seems to be responded very well to IV Lasix and will continue the same Pulmonary consultation in follow-up as an appreciated Will continue present medication is continues to improve, then possible discharge in a.m. on oral diuretics Echo shows: Normal left ventricular (LV) size with moderate left ventricular hypertrophy (LVH), LVH, preserved LV systolic function and grade 1 diastolic dysfunction. Poorly visualized right ventricle. No hemodynamically significant valvular disease. Severely elevated central venous pressure and severe pulmonary hypertension (pulmonary artery pressure at least 90 mmHg). Small noncompressive pericardial effusion. (2) Acute and chronic respiratory failure with hypoxia Status: Acute Problem Text: COPD / Chronic hypoxic respiratory failure (on 3L NC O2)/ Severe pulmonary hypertension. No evidence of exacerbation at this time Continue with inhaled therapy as ordered (3) COPD exacerbation Status: Chronic Problem Text: Stable at the present time Continue home meds (4) Anemia Status: Chronic Problem Text: Normocytic normochromic anemia most likely secondary to chronic disease H&H is stable. Monitor CBC (5) HTN (hypertension) Status: Chronic Problem Text: Stable Continue home meds (6) Diabetes mellitus Status: Chronic Problem Text: Stable continue home meds (7) JAELYN on CPAP Status: Chronic Problem Text: Stable. Continue BiPAP at nighttime Plan/VTE VTE Prophylaxis Ordered?: Yes VS, I&O, 24H, Fishbone Vital Signs/I&O Vital Signs Date Time Temp Pulse Resp B/P (MAP) Pulse Ox O2 Delivery O2 Flow Rate FiO2 10/22/19 09:37 117/61 10/22/19 07:46 97.8 61 20 96 Room Air 5.0 I&O- Last 24 Hours up to 6 AM 10/22/19 06:00 Intake Total 870 ml Output Total 2600 ml Balance -1730 ml Laboratory Data 24H LABS Laboratory Tests 2 10/21/19 12:13: Bedside Glucose (Misc Panel) 215H 10/21/19 16:56: Bedside Glucose (Misc Panel) 136H 10/21/19 19:30: Bedside Glucose (Misc Panel) 145H 10/22/19 04:46: Immature Granulocyte % (Auto) 0.5, Neutrophils (%) (Auto) 75.4H, Lymphocytes (%) (Auto) 12.2L, Monocytes (%) (Auto) 9.1H, Eosinophils (%) (Auto) 1.8, Basophils (%) (Auto) 1.0, Neutrophils # (Auto) 7.0, Lymphocytes # (Auto) 1.1L, Monocytes # (Auto) 0.9H, Eosinophils # (Auto) 0.2, Basophils # (Auto) 0.1, Nucleated Red Blood Cells % (auto) 0.0, Anion Gap 6L, Glomerular Filtration Rate > 60.0, Calcium Level 8.0L, Magnesium Level 2.2 CBC/BMP Laboratory Tests 10/22/19 04:46 Microbiology Microbiology 10/20/19 Respiratory Virus Panel (PCR) ([facility]) - Final, Complete 10/20/19 Blood Culture - Preliminary, Resulted No growth after 24 hours . All specim... 10/20/19 Blood Culture - Preliminary, Resulted No growth after 24 hours . All specim... MESFIN FLAHERTY MD Oct 22, 2019 10:50
[2019-10-22] MEDS: RANOLAZINE 500 MG ER TAB PO SCH ×2 (11:58→20:16)
[2019-10-22] MEDS: FLUoxetine 10 MG CAP PO SCH (11:58)
[2019-10-22 12:00] VITALS: BP 111/73
[2019-10-22 16:11] VITALS: BP 134/74
[2019-10-22 20:00] VITALS: BP 101/51
[2019-10-22] MEDS: ROSUVASTATIN 10 MG TAB (CRESTOR) PO SCH (20:16)
[2019-10-22] MEDS: METOPROLOL TART 25 MG TABLET PO SCH (20:17)
[2019-10-22] MEDS: LEVEMIR (INSULIN DETEMIR) 1 UNITS/0.01ML SC SCH (20:18)
[2019-10-23] VITALS: BP 104/60
[2019-10-23] MEDS: IPRATROPIUM 0.5MG/ALBUTEROL 2.5MG INH SOL UD 3ML (DUONEB)(J7620) NEB SCH ×2 (01:03→07:02)
[2019-10-23 04:00] VITALS: BP 102/54
[2019-10-23 05:13] LABS: BASO # 0.1 10^3/uL (0.0-0.2); BASO % 0.9 % (0.0-1.0); EOS # 0.2 10^3/uL (0.0-0.5); EOS % 1.8 % (0.0-3.0); HEMATOCRIT 32.3 % (42.0-52.0); HEMOGLOBIN 9.7 g/dl (13.5-17.5); LYMPH # 1.4 10^3/uL (1.5-5.0); LYMPH % 15.1 % (24.0-44.0); MEAN CORPUSCULAR HEMOGLOBIN 24.6 pg (27.0-33.0); MEAN CORPUSCULAR VOLUME 81.8 fl (80.0-96.0); MONO # 0.9 10^3/uL (0.0-0.8); MONO % 9.7 % (0.0-5.0); NEUTROPHILS # 6.5 10^3/uL (1.5-8.5); NEUTROPHILS % 71.8 % (36.0-66.0); PLATELET COUNT, AUTOMATED 194 10^3/uL (150-450); RED BLOOD COUNT 3.95 10^6/uL (4.30-6.10)
[2019-10-23 05:47] LABS: ALBUMIN 2.6 GM/DL (3.2-5.2); BILIRUBIN,TOTAL 0.2 MG/DL (0.2-1.0); CREATININE FOR GFR 1.37 MG/DL (0.70-1.30); GLOMERULAR FILTRATION RATE 53.9 (>42); MAGNESIUM LEVEL 2.1 MG/DL (1.8-2.4); POTASSIUM SERUM 3.8 MEQ/L (3.5-5.1); TOTAL PROTEIN 5.6 GM/DL (6.4-8.2)
[2019-10-23] MEDS: SLF 3 ML SYR IV SCH (06:24)
[2019-10-23] MEDS: HEPARIN SOD (PORCINE) 5000UNITS/ML VIAL (J1644 PER 1000UNITS) SC SCH (06:24)
[2019-10-23] MEDS: ADVAIR HFA 230/21MCG INHALER INH SCH (07:02)
[2019-10-23] MEDS: FUROSEMIDE 40MG/4ML VIAL (J1940) IV SCH (09:18)
[2019-10-23] MEDS: ASPIRIN 325 MG TAB PO SCH (09:19)
[2019-10-23] MEDS: RANOLAZINE 500 MG ER TAB PO SCH (09:19)
[2019-10-23] MEDS: FLUoxetine 10 MG CAP PO SCH (09:19)
[2019-10-23] MEDS: HumaLOG INSULIN (NovoLOG) PER UNIT SC SCH (09:19)
[2019-10-23] MEDS: SPIRONOLACTONE 25 MG TAB PO SCH (09:20)
[2019-10-23] MEDS: OMEPRAZOLE 20 MG CAP PO SCH (09:20)
[2019-10-23] MEDS: ISOSORBIDE MON. (IMDUR) 60 MG XR TAB PO SCH (09:21)
[2019-10-23 09:22] VITALS: BP 122/68
[2019-10-23] MEDS: LISINOPRIL *2.5 MG* TAB PO SCH (09:22)
[2019-10-23] MEDS: FLUTICASONE PROP 0.05% NASAL SPRAY 16 GM (FLONASE) SCH (09:23)
[2019-10-23] MEDS: CLOPIDOGREL 75 MG TAB PO SCH (09:23)
[2019-10-23] MEDS: MAGNESIUM OXIDE 400 MG TAB (MAG-OX) PO SCH (09:23)
[2019-10-23] MEDS ORDERED: PILL CUTTER 1 EACH XX PRN (09:30)
[2019-10-23] MEDS ORDERED: POTA20TA6 PO (09:52)
[2019-10-23] MEDS ORDERED: LASI40TA9 PO (09:52)
--- NOTE | 2019-10-23 11:17 | DS.PDOC ---
Discharge Summary General Date of Admission Oct 20, 2019 at 14:53 Date of Discharge 10/23/19 Discharge Summary PROCEDURES PERFORMED DURING STAY: None. ADMITTING DIAGNOSES: 1. CHF. DISCHARGE DIAGNOSES: 1. Acute on chronic diastolic heart failure, hypertension, type 2 diabetes mellitus, hyperlipidemia, JAELYN, CAD, chronic hypoxic respiratory failure, COPD with chronic hypoxia. COMPLICATIONS/CHIEF COMPLAINT: Chf,Hypoxia. 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 Patient has been following with Dr. Crespo, pulmonology as an outpatient. Patient reports that hes been experiencing slow progressive shortness of breath. Upon evaluation with pulmonology today, patient was found to be severely hypoxic in their office and EMS was called for transfer to ER. Patient reports that he experiences worsening shortness of breath with exertion. He does report a cough without any expectoration. Patient uses 3 L of nasal cannula at baseline and is currently on 5 L. Patient denies any fevers but has experienced chills. Denies any swelling of his lower extremities. Denies chest pain, palpitations or shortness of breath when lying flat. Patient denies nausea, vomiting, diaphoresis, abdominal pain, constipation or diarrhea reported. Last bowel movement was yesterday. Denies any urinary discomfort. Patient reports that he is compliant with his medications. He shouldnt was not given any instructions for fluid restrictions. His appetite has been poor, but has reported weight gain of 7 pounds over the last 1 week . 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 Patient has been following with Dr. Crespo, pulmonology as an outpatient. Patient reports that hes been experiencing slow progressive shortness of breath. Upon evaluation with pulmonology today, patient was found to be severely hypoxic in their office and EMS was called for transfer to ER. Acute and chronic respiratory failure, most likely secondary to decompensated acute diastolic heart failure and right-sided heart failure Patient seems to be responded very well to IV Lasix and will continue the same Pulmonary consultation in follow-up as an appreciated Patient improving very well. He is asymptomatic at the present time and will be discharged home on Lasix 40 mg by mouth twice a day and KCl 20 mEq by mouth daily as potassium supplement Echo shows: Normal left ventricular (LV) size with moderate left ventricular hypertrophy (LVH), LVH, preserved LV systolic function and grade 1 diastolic dysfunction. Poorly visualized right ventricle. No hemodynamically significant valvular disease. Severely elevated central venous pressure and severe pulmonary hypertension (pulmonary artery pressure at least 90 mmHg). Small noncompressive pericardial effusion. Follow with PCP in one week. Has been ordered . DISCHARGE MEDICATIONS: Please see below. ALLERGIES: Please see below. PHYSICAL EXAMINATION ON DISCHARGE: VITAL SIGNS: Please see below. GENERAL: Within normal limit HEENT: PERRLA. Extraocular muscles intact NECK: Supple. Negative JVD, negative lymphadenopathy CARDIOVASCULAR EXAMINATION: S1, S2, regular RESPIRATORY EXAMINATION: Clear to A&P ABDOMINAL EXAMINATION: Benign EXTREMITIES: No clubbing, cyanosis, edema SKIN: Normal NEUROLOGICAL EXAMINATION: . No focal motor sensory deficit PSYCHIATRIC EXAMINATION: Normal LABORATORY DATA: Please see below. IMAGING: Chest x-ray:Cardiomegaly and interstitial edema suspected with bilateral pleural effusions and other bibasilar opacities, which are unchanged. They should be correlated clinically with appropriate followup. PROGNOSIS: Good ACTIVITY: As tolerated. DIET: 2 g sodium DISCHARGE PLAN: Discharged home DISPOSITION: . Home DISCHARGE INSTRUCTIONS: 1. As per discharge instructions. ITEMS TO FOLLOWUP ON ON OUTPATIENT: 1. Follow PCP in one week. DISCHARGE CONDITION: Stable. TIME SPENT ON DISCHARGE: 35 minutes. Vital Signs/I&Os Vital Signs Date Time Temp Pulse Resp B/P (MAP) Pulse Ox O2 Delivery O2 Flow Rate FiO2 10/23/19 09:22 122/68 10/23/19 04:00 98.0 65 20 95 NIPPV (BIPAP/CPAP) 3.0 I&O- Last 24 Hours up to 6 AM 10/23/19 06:00 Intake Total 480 ml Output Total 2050 ml Balance -1570 ml Laboratory Data Labs 24H Laboratory Tests 2 10/22/19 12:04: Bedside Glucose (Misc Panel) 199H 10/22/19 17:34: Bedside Glucose (Misc Panel) 128H 10/22/19 19:45: Bedside Glucose (Misc Panel) 179H 10/23/19 04:50: Immature Granulocyte % (Auto) 0.7, Neutrophils (%) (Auto) 71.8H, Lymphocytes (%) (Auto) 15.1L, Monocytes (%) (Auto) 9.7H, Eosinophils (%) (Auto) 1.8, Basophils (%) (Auto) 0.9, Neutrophils # (Auto) 6.5, Lymphocytes # (Auto) 1.4L, Monocytes # (Auto) 0.9H, Eosinophils # (Auto) 0.2, Basophils # (Auto) 0.1, Nucleated Red Blood Cells % (auto) 0.0, Anion Gap 6L, Glomerular Filtration Rate 53.9, Calcium Level 8.0L, Magnesium Level 2.1, Total Bilirubin 0.2#, Aspartate Amino Transf (AST/SGOT) 10, Alanine Aminotransferase (ALT/SGPT) 14, Alkaline Phosphatase 78, Total Protein 5.6L, Albumin 2.6L, Albumin/Globulin Ratio 0.9 10/23/19 10:58: Bedside Glucose (Misc Panel) 184H CBC/BMP Laboratory Tests 10/23/19 04:50 FSBS Laboratory Tests Test 10/22/19 12:04 10/22/19 17:34 10/22/19 19:45 10/23/19 10:58 Range/Units Bedside Glucose (Misc Panel) 199 128 179 184 83-110 MG/DL Microbiology Microbiology 10/20/19 Respiratory Virus Panel (PCR) ([facility]) - Final, Complete 10/20/19 Blood Culture - Preliminary, Resulted No Growth after 48 hours. All Specime... 10/20/19 Blood Culture - Preliminary, Resulted No Growth after 48 hours. All Specime... Discharge Medications Scheduled Aspirin (Aspirin) 325 Mg Tab, 325 MG PO DAILY, (Reported) Clopidogrel Bisulfate (Clopidogrel) 75 Mg Tab, 75 MG PO DAILY, (Reported) Fluoxetine Hcl (Fluoxetine HCl) 10 Mg Capsule, 30 MG PO DAILY, (Reported) Fluticasone Propionate (Fluticasone Propionate) 16 Gm [place].susp, 1 SPRAY NA DAILY, (Reported) Furosemide (Lasix) 40 Mg Tablet, 40 MG PO BID Insulin Aspart (Novolog Flexpen) 100 Unit/Ml Inj, 1 DOSE SC ACHS, (Reported) PER SLIDING SCALE Insulin Glargine,Hum.rec.anlog (Toujeo Solostar) 300 Unit/Ml Inj, 30 UNIT SC DAILY, (Reported) Insulin Glargine,Hum.rec.anlog (Toujeo Solostar) 300 Unit/1 Ml Insuln.pen, 60 UNIT SC QHS, (Reported) Isosorbide Mononitrate (Isosorbide Mononitrate ER) 60 Mg Tab.er.24h, DAILY, (Reported) Lisinopril (Lisinopril) 2.5 Mg Tab, 2.5 MG PO DAILY, (Reported) Magnesium Oxide (Magnesium Oxide) 400 Mg Tab, 400 MG PO DAILY, (Reported) Metoprolol Tartrate (Metoprolol Tartrate) 25 Mg Tab, 12.5 MG PO QHS, (Reported) Omeprazole (Omeprazole) 20 Mg Tab, 20 MG PO BID, (Reported) Potassium Chloride (Potassium Chloride) 20 Meq Tab.er.prt, 1 TAB PO DAILY Ranolazine (Ranexa) 1,000 Mg Tab.er.12h, 1,000 MG PO BID, (Reported) Rosuvastatin Calcium (Rosuvastatin Calcium) 40 Mg Tab, 40 MG PO QHS, (Reported) Salmeterol/Fluticasone (Advair 500-50 Diskus) 28 Puff/Inhaler Aerp, 1 PUFF INH BID, (Reported) Spironolactone (Spironolactone) 25 Mg Tab, 12.5 MG PO Q2D, (Reported) Umeclidinium [place] (Incruse Ellipta) 62.5 Mcg/Inh Inh, 1 PUFF INH DAILY, (Reported) Scheduled PRN Albuterol Sulf (Albuterol Sulfate) 2.5 Mg/3 Ml Vial.neb, 2.5 MG INH Q4HP PRN for SHORTNESS OF BREATH, (Reported) Albuterol Sulfate (Ventolin Hfa) 108 Mcg/Act Aer, 2 PUFF INH Q4H PRN for SHORTNESS OF BREATH, (Reported) Nitroglycerin (Nitrostat) 0.4 Mg Subl, 0.4 MG SL NITRO PRN for CHEST PAIN, (Reported) Allergies Coded Allergies: Cephalosporins (Verified Allergy, Intermediate, RASH, 06/21/19) RASH PER Penicillins (Verified Allergy, Intermediate, RASH, 06/21/19) clavulanic acid (Verified Allergy, Intermediate, RASH, 06/21/19) levofloxacin (Verified Allergy, Intermediate, RASH, 06/21/19) MESFIN FLAHERTY MD Oct 23, 2019 11:17
== END 2019-10-23 11:48 | disposition home health service (06) | DRG 291 ==
LOC: EDBD 12:22 → M ED 12:22 → M ED INP 14:53 → M PCU 16:27
PROVIDERS: ADMIT Internal Medicine; ATTEND Internal Medicine
DX: I11.0 Hypertensive heart disease with heart failure (principal); J96.21 Acute and chronic respiratory failure with hypoxia; Z68.41 Body mass index [BMI] 40.0-44.9, adult; I50.33 Acute on chronic diastolic (congestive) heart failure; J44.9 Chronic obstructive pulmonary disease, unspecified; G47.33 Obstructive sleep apnea (adult) (pediatric); I25.10 Atherosclerotic heart disease of native coronary artery without angina pectoris; E11.51 Type 2 diabetes mellitus with diabetic peripheral angiopathy without gangrene; E78.5 Hyperlipidemia, unspecified; D63.8 Anemia in other chronic diseases classified elsewhere; E66.01 Morbid (severe) obesity due to excess calories; E11.649 Type 2 diabetes mellitus with hypoglycemia without coma; I50.811 Acute right heart failure; Z95.5 Presence of coronary angioplasty implant and graft; Z95.820 Peripheral vascular angioplasty status with implants and grafts; Z79.82 Long term (current) use of aspirin; Z79.02 Long term (current) use of antithrombotics/antiplatelets; Z79.4 Long term (current) use of insulin; Z79.899 Other long term (current) drug therapy; Z88.0 Allergy status to penicillin; Z88.1 Allergy status to other antibiotic agents; Z88.8 Allergy status to other drugs, medicaments and biological substances; Z99.81 Dependence on supplemental oxygen; Z90.49 Acquired absence of other specified parts of digestive tract; Z11.59 Encounter for screening for other viral diseases

== ENCOUNTER 2019-12-12 17:50 | Inpatient (IN) | payer MEDICARE ==
[~2019-12-12 17:50] MED LIST changes: -ASPIRIN 325 MG TAB PO SCH; +FLUTISP; +POTA20TA6 PO
--- NOTE | 2020-01-12 14:59 | CR ---
DATE OF CONSULTATION: 12/13/2019 CHIEF COMPLAINT: Syncope. HISTORY OF PRESENT ILLNESS: Patient is a 74-year-old male who was walking out to hop in an SUV with his daughter yesterday. When he got to the door, he got very weak. The daughter says his eyes rolled back into his head, and he fell to the ground. He was brought into the emergency room for syncope. He had no other symptoms at the time. He denies nausea or vomiting. No fevers or chills. No abdominal pains. No problems with bowel or bladder movements. Incidentally, because of slight dehydration and acute renal injury, he had a CT of the abdomen completed, which showed dilated appendix. Because of that, I was called to evaluate him for possible appendicitis. This morning he has zero abdominal pain. Claims that he never had any yesterday either. No fever or chills. He did have periumbilical pain that was sharp last Sunday. It last for a day or two and went away on its own. He has not had any problems since. He does have a history of congestive heart failure (CHF) and claims that he has been watching his fluid intake and was told that he probably has not been drinking enough at home lately. He feels that that may have been part of the cause for his dehydration and syncopal episode. PAST MEDICAL HISTORY: 1. Chronic bronchitis. 2. Obstructive sleep apnea. 3. Hypoxemia, on home oxygen. 4. Chronic obstructive pulmonary disease (COPD). 5. Diastolic heart failure. 6. Congestive heart failure (CHF). 7. Emphysematous bronchitis. 8. Obesity. 9. Chronic pulmonary heart disease. 10. Diabetes. 11. Anxiety and depression. PAST SURGICAL HISTORY: 1. Cholecystectomy. 2. Cataract surgery. 3. Heart catheterization with stents. FAMILY HISTORY: Noncontributory. SOCIAL HISTORY: He is a previous smoker. Denies any current drug, alcohol, or tobacco use. REVIEW OF SYSTEMS: Pertinent positives and negatives as stated in the history of present illness (HPI). LABORATORY DATA: Please refer to chart. White count was all within normal range. IMAGING DATA: CT abdomen and pelvis showed a dilated appendix, about 1.7 cm with some periappendiceal edema, possible appendicolith at the base of the appendix. Otherwise no other acute findings. PHYSICAL EXAMINATION: GENERAL: Alert and oriented times three. No acute distress. VITAL SIGNS: Stable, afebrile. HEENT: Pupils equally round and reactive to light and accommodate. HEART: S1, S2, regular rate and rhythm. LUNGS: Clear to auscultation bilaterally. ABDOMEN: Soft, nontender, nondistended. Obese. EXTREMITIES: Bilateral lower extremity pitting edema. ASSESSMENT AND PLAN: Patient is a 74-year-old male, currently here with a syncopal episode, likely secondary to dehydration. At this time, he does have a dilated appendix on his CT; however, he is completely asymptomatic. He has zero abdominal pain. Recommendation for the appendicitis is to continue with antibiotics while he is inpatient. When he is discharged home, he can go home with Cipro and Flagyl due to his multiple antibiotic allergies. Continue with those for a total course of 7 days from when he presented to the hospital. He can then followup with me in the office as an outpatient if his symptoms of abdominal pain return. Otherwise, he does not need to see me. As far as the syncopal episode is concerned, according to the ER, there is no known cause at this point, likely just secondary to his dehydration. Recommend checking orthostatics. If those are appropriate, he may be eligible for discharge today. RANDY
[2020-01-13 11:15] LABS: INR 1.14; PARTIAL THROMBOPLASTIN TIME 29.3 SECONDS (25.0-38.4); PROTHROMBIN TIME 14.9 SECONDS (11.8-14.0)
[2020-01-13 12:37] LABS: BASO # 0.1 10^3/uL (0.0-0.2); BASO % 0.6 % (0.0-1.0); EOS # 0.1 10^3/uL (0.0-0.5); EOS % 0.6 % (0.0-3.0); HEMATOCRIT 33.7 % (42.0-52.0); HEMOGLOBIN 10.3 g/dl (13.5-17.5); LYMPH # 0.6 10^3/uL (1.5-5.0); LYMPH % 5.8 % (24.0-44.0); MEAN CORPUSCULAR HEMOGLOBIN 24.5 pg (27.0-33.0); MEAN CORPUSCULAR HGB CONC 30.6 g/dl (32.0-36.5); MEAN CORPUSCULAR VOLUME 80.2 fl (80.0-96.0); MONO # 0.8 10^3/uL (0.0-0.8); MONO % 7.9 % (0.0-5.0); NEUTROPHILS # 8.6 10^3/uL (1.5-8.5); PLATELET COUNT, AUTOMATED 254 10^3/uL (150-450); WHITE BLOOD COUNT 10.2 10^3/uL (4.0-10.0)
== END 2019-12-13 17:50 | disposition home or self-care (01) | DRG 641 ==
LOC: M ED 17:50 → M PCU 23:10 → M ED 12-14 17:50
PROVIDERS: ADMIT Internal Medicine; ATTEND Internal Medicine
DX: E86.0 Dehydration (principal); N17.9 Acute kidney failure, unspecified; I50.32 Chronic diastolic (congestive) heart failure; R42 Dizziness and giddiness; K37 Unspecified appendicitis; E87.5 Hyperkalemia; G47.33 Obstructive sleep apnea (adult) (pediatric); J44.9 Chronic obstructive pulmonary disease, unspecified; E66.9 Obesity, unspecified; E11.9 Type 2 diabetes mellitus without complications; F32.9 Major depressive disorder, single episode, unspecified; F41.9 Anxiety disorder, unspecified; Z95.2 Presence of prosthetic heart valve; Z87.891 Personal history of nicotine dependence; Z79.899 Other long term (current) drug therapy; R55 Syncope and collapse

== ENCOUNTER 2019-12-31 14:38 | Inpatient (IN) | payer MEDICARE ==
[~2019-12-31] VITALS: Ht 172.7 cm; Wt 117.2 kg
[~2019-12-31 14:38] MED LIST changes: -FLUO10CA15 PO; +FLUO10CA16 PO; -FLUTISP; +FLUTISP NARES; -ISOS60TA2; +ISOS60TA2 PO; -LISI-1034 PO; +LISI2.5T8 PO; -RANO1000 PO; +RANO10002 PO
[2019-12-31] MEDS ORDERED: FUROSEMIDE 40MG/4ML VIAL (J1940) IV ONE (14:45)
[2019-12-31 15:20] LABS: BASO # 0.1 10^3/uL (0.0-0.2); BASO % 0.4 % (0.0-1.0); EOS % 0.3 % (0.0-3.0); HEMATOCRIT 32.2 % (42.0-52.0); HEMOGLOBIN 9.7 g/dl (13.5-17.5); LYMPH # 0.5 10^3/uL (1.5-5.0); LYMPH % 3.9 % (24.0-44.0); MEAN CORPUSCULAR HEMOGLOBIN 23.8 pg (27.0-33.0); MEAN CORPUSCULAR HGB CONC 30.1 g/dl (32.0-36.5); MEAN CORPUSCULAR VOLUME 78.9 fl (80.0-96.0); MONO % 8.6 % (0.0-5.0); NEUTROPHILS # 10.4 10^3/uL (1.5-8.5); NEUTROPHILS % 86.3 % (36.0-66.0); PLATELET COUNT, AUTOMATED 243 10^3/uL (150-450); RED BLOOD COUNT 4.08 10^6/uL (4.30-6.10); WHITE BLOOD COUNT 12.1 10^3/uL (4.0-10.0)
[2019-12-31 15:45] LABS: ALBUMIN 2.6 GM/DL (3.2-5.2); ALT/SGPT 11 U/L (12-78); BILIRUBIN,DIRECT 0.2 MG/DL (0.0-0.2); BILIRUBIN,TOTAL 0.8 MG/DL (0.2-1.0); BLOOD UREA NITROGEN 18 MG/DL (7-18); CALCIUM LEVEL 8.1 MG/DL (8.8-10.2); CARBON DIOXIDE LEVEL 26 MEQ/L (21-32); CHLORIDE LEVEL 104 MEQ/L (98-107); CK-MB VALUE MASS 1.5 NG/ML (<3.6); CPK CREATINE PHOSPHOKINASE 52 U/L (39-308); GLOMERULAR FILTRATION RATE > 60.0 (>42); GLUCOSE, FASTING 189 MG/DL (70-100); MB/CK RELATIVE INDEX 2.88 (< OR =4); NT-PRO BNP 6497 PG/ML (<450); POTASSIUM SERUM 4.8 MEQ/L (3.5-5.1); SODIUM LEVEL 136 MEQ/L (136-145); TOTAL PROTEIN 6.2 GM/DL (6.4-8.2); TROPONIN I 0.04 NG/ML (< 0.10)
--- NOTE | 2019-12-31 15:49 | REPVR ---
PROCEDURE INFORMATION: Exam: XR Chest, 1 View Exam date and time: 12/31/2019 3:09 PM Age: 74 years old Clinical indication: Dyspnea TECHNIQUE: Imaging protocol: XR of the chest Views: 1 view. COMPARISON: CR PORTABLE CHEST X-RAY 10/20/2019 1:05 PM FINDINGS: Tubes, catheters and devices: Oxygen tubing and ECG leads/contacts overlie and partially obscure the anatomy. Lungs: The central pulmonary vasculature appears congested. Mild multifocal ground-glass and consolidative airspace opacities of the bilateral lower lungs. Bilateral pulmonary aeration is worsened compared to 10/20/2019. Pleural space: Blunting of the bilateral lateral costophrenic angles and bilateral cardiophrenic angles. No pneumothorax. Heart/Mediastinum: The cardiac silhouette is stably mildly diffusely enlarged. Vasculature: Tortuous thoracic aorta redemonstrated. Aortic atherosclerotic calcification. Bones/joints: No acute osseous abnormality. IMPRESSION: Findings compatible with congestive heart failure, worsened compared to 10/20/2019. Cardiomegaly. Small bilateral pleural effusions. Pulmonary findings consistent with pulmonary vascular congestion, pulmonary edema, and mild atelectasis. Pulmonary infection is not excluded. Electronically signed by: Jayjay De La Garza On 12/31/2019 15:49:47 PM
[2019-12-31] MEDS ORDERED: DEXTROSE 50% 50 ML SYRINGE IV PRN (18:00)
[2019-12-31] MEDS ORDERED: GLUCAGON INJ 1MG VIAL SC PRN (18:00)
[2019-12-31] MEDS ORDERED: GLUCOSE 4GM CHEW TABLET PO PRN (18:00)
--- NOTE | 2019-12-31 18:08 | HPEPDOC ---
[facility] Medical History & Physical Date of Admission Dec 31, 2019 Date of Service: Dec 31, 2019 Attending Physician: NAFISA BALL MD History and Physical CHIEF COMPLAINT: Shortness of breath HISTORY OF PRESENT ILLNESS: Artemio Alberto is a 74 YO M with history of COPD (3L at home, follows with Dr. Crespo), diastolic CHF (LVEF 65%, 10/2019), JAELYN on CPAP who presented to the ED via EMS for shortness of breath. The patient reports that for the past 3 days he has been unable to ambulate around his house, very short distances, without getting short of breath. He has been coughing but unable to produce any sputum. He denies any fevers, chills, night sweats or sick contacts. He has been reportedly taking all of his medication as prescribed and has been using his CPAP at night faithfully. He has been sleeping in a recliner at home. He reports that he has been observing his prescribed 1500cc/day fluid restriction as well. PAST MEDICAL HISTORY: 1. COPD (3L at home, follows with Dr. Crespo) 2. diastolic CHF (LVEF 65%, 10/2019) 3. JAELYN on CPAP 4. HTN 5. IDDM2 6. CAD s/p several stents in 2017 7. PVD s/p LLE stent 8. Morbid obesity PAST SURGICAL HISTORY: 1. Cholecystectomy 1989 2. Cardiac stenting 2016 3. 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 REVIEW OF SYSTEMS: CONSTITUTIONAL: positive for weakness HEENT: no vision changes CARDIOVASCULAR: no chest pain or palpitations, no lower extremity swelling RESPIRATORY: positive for SOB and dyspnea GASTROINTESTINAL: no nausea/vomiting/diarrhea, positive for constipation GENITOURINARY: no dysuria SKIN: no rashes MUSCULOSKELETAL: no joint pain NEUROLOGICAL: no parasthesias/deficits PSYCHIATRIC: normal mood/affect ENDOCRINE: no hot/cold intolerance HEMATOLOGIC/LYMPHATIC: no lumps/bumps noted HOME MEDICATIONS: Please see below. PHYSICAL EXAMINATION: GENERAL APPEARANCE: NAD, sitting up in bed with ventimask on, calm, comfortable HEENT: MMM, EOMI, sclerae non-icteric CARDIOVASCULAR: RRR, no obvious m/r/g, +s1/s2 LUNGS: crackles are appreciated at the bases bilaterally up to the middle lobes, audible wheezing is appreciated in upper airways ABDOMEN: obese, nontender to palpation, +BS, non distended MUSCULOSKELETAL: no joint swelling EXTREMITIES: no lower extremity edema noted NEUROLOGICAL: no obvious focal deficits PSYCHIATRIC: normal mood/affect LABORATORY DATA: See below. IMAGING: FINDINGS: Tubes, catheters and devices: Oxygen tubing and ECG leads/contacts overlie and partially obscure the anatomy. Lungs: The central pulmonary vasculature appears congested. Mild multifocal ground-glass and consolidative airspace opacities of the bilateral lower lungs. Bilateral pulmonary aeration is worsened compared to 10/20/2019. Pleural space: Blunting of the bilateral lateral costophrenic angles and bilateral cardiophrenic angles. No pneumothorax. Heart/Mediastinum: The cardiac silhouette is stably mildly diffusely enlarged. Vasculature: Tortuous thoracic aorta redemonstrated. Aortic atherosclerotic calcification. Bones/joints: No acute osseous abnormality. IMPRESSION: Findings compatible with congestive heart failure, worsened compared to 10/20/2019. Cardiomegaly. Small bilateral pleural effusions. Pulmonary findings consistent with pulmonary vascular congestion, pulmonary edema, and mild atelectasis. Pulmonary infection is not excluded. MICROBIOLOGY: Please see below. ASSESSMENT: Artemio Alberto is a 74 YO M with COPD (3L home O2), dCHF (LVEF 65%) who presents with shortness of breath and dyspnea on exertion found to have elevated BNP and pulmonary edema concerning for congestive heart failure exacerbation. . PLAN: 1. Shortness of breath: likely 2/2 Diastolic Congestive heart failure, decompensated. Sees Dr. Novak outpatient -Lasix IV 40mg Q8H -Strict I/O, Fluid restriction 1500cc/day, daily weights -WBC slightly elevated at 12.1, less likely infectious -Respiratory panel (including rapid COVID) -Patient reports Spironolactone was recently stopped 2. COPD: some audible wheezing on exam, coughing -Continue home inhaler: Advair, Incruse Ellipta -Will order acapella 3. IDDM2: -SSI with hypoglycemic protocol -Lantus 24U daily, 50U QHS 4.Hx PVD s/p stents: -Continue Plavix, ASA 5. HTN: -Continue Metoprolol, Isosorbide 6. CAD s/p multiple stents: -Continue Ranexa 7. HLD: -continue Rosuvastatin PT/OT consult DVT ppx: Lovenox Vital Signs Vital Signs Date Time Temp Pulse Resp B/P (MAP) Pulse Ox O2 Delivery O2 Flow Rate FiO2 12/31/19 15:11 Venturi Mask 15.0 12/31/19 14:54 99.1 71 24 111/60 94 Laboratory Data Labs 24H Laboratory Tests 2 12/31/19 14:55: Immature Granulocyte % (Auto) 0.5, Neutrophils (%) (Auto) 86.3H, Lymphocytes (%) (Auto) 3.9L, Monocytes (%) (Auto) 8.6H, Eosinophils (%) (Auto) 0.3, Basophils (%) (Auto) 0.4, Neutrophils # (Auto) 10.4H, Lymphocytes # (Auto) 0.5L, Monocytes # (Auto) 1.0H, Eosinophils # (Auto) 0.0, Basophils # (Auto) 0.1, Nucleated Red Blood Cells % (auto) 0.0, Anion Gap 6L, Glomerular Filtration Rate > 60.0, Calcium Level 8.1L, Total Bilirubin 0.8, Direct Bilirubin 0.2, Aspartate Amino Transf (AST/SGOT) 22, Alanine Aminotransferase (ALT/SGPT) 11L, Alkaline Phosphatase 103, Total Creatine Kinase 52, Creatine Kinase MB 1.5, Creatine Kinase MB Relative Index 2.88, Troponin I 0.04, II-Hvn-W-Type Natriuretic Peptide 6497H, Total Protein 6.2L, Albumin 2.6L, Albumin/Globulin Ratio 0.7 12/31/19 15:00: Lactic Acid Level 1.6 CBC/BMP Laboratory Tests 12/31/19 14:55 Microbiology Microbiology 12/31/19 Blood Culture, Received Pending 12/31/19 Blood Culture, Received Pending Home Medications Scheduled Aspirin (Aspirin) 325 Mg Tab, 325 MG PO DAILY Clopidogrel Bisulfate (Clopidogrel) 75 Mg Tab, 75 MG PO DAILY Fluoxetine Hcl (Fluoxetine HCl) 10 Mg Capsule, 30 MG PO DAILY Fluticasone Propionate (Fluticasone Propionate) 16 Gm [place].susp, 1 SPRAY NA DAILY Insulin Aspart (Novolog Flexpen) 100 Unit/Ml Inj, 1 DOSE SC ACHS PER SLIDING SCALE Insulin Glargine,Hum.rec.anlog (Toujeo Solostar) 300 Unit/Ml Inj, 30 UNIT SC DAILY Insulin Glargine,Hum.rec.anlog (Toujeo Solostar) 300 Unit/1 Ml Insuln.pen, 60 UNIT SC QHS Isosorbide Mononitrate (Isosorbide Mononitrate ER) 60 Mg Tab.er.24h, DAILY Lisinopril (Lisinopril) 2.5 Mg Tab, 2.5 MG PO DAILY Magnesium Oxide (Magnesium Oxide) 400 Mg Tab, 400 MG PO DAILY Metoprolol Tartrate (Metoprolol Tartrate) 25 Mg Tab, 12.5 MG PO QHS Omeprazole (Omeprazole) 20 Mg Tab, 20 MG PO BID Potassium Chloride (Potassium Chloride) 20 Meq Tablet.er, 20 MEQ PO DAILY Prednisone (Prednisone) 20 Mg Tablet, 20 MG PO DAILY Ranolazine (Ranexa) 1,000 Mg Tab.er.12h, 1,000 MG PO BID Rosuvastatin Calcium (Rosuvastatin Calcium) 40 Mg Tab, 40 MG PO QHS Salmeterol/Fluticasone (Advair 500-50 Diskus) 28 Puff/Inhaler Aerp, 1 PUFF INH BID Spironolactone (Aldactone) 25 Mg Tablet, 25 MG PO BID@09,17 Torsemide (Torsemide) 20 Mg Tablet, 40 MG PO BID@09,17 Umeclidinium Coward (Incruse Ellipta) 62.5 Mcg/Inh Inh, 1 PUFF INH DAILY Scheduled PRN Acetaminophen (Mapap) 500 Mg Tablet, 1,000 MG PO Q6H PRN for PAIN Albuterol Sulf (Albuterol Sulfate) 2.5 Mg/3 Ml Vial.neb, 2.5 MG INH Q4HP PRN for SHORTNESS OF BREATH Albuterol Sulfate (Ventolin Hfa) 108 Mcg/Act Aer, 2 PUFF INH Q4H PRN for SHORTNESS OF BREATH Nitroglycerin (Nitrostat) 0.4 Mg Subl, 0.4 MG SL NITRO PRN for CHEST PAIN Allergies Coded Allergies: Cephalosporins (Verified Allergy, Intermediate, RASH, 06/21/19) RASH PER Penicillins (Verified Allergy, Intermediate, RASH, 06/21/19) clavulanic acid (Verified Allergy, Intermediate, RASH, 06/21/19) levofloxacin (Verified Allergy, Intermediate, RASH, 06/21/19) A-FIB/CHADSVASC A-FIB History Current/History of A-Fib/PAF?: No GME ATTESTATION GME ATTESTATION My faculty preceptor for this patient encounter was physically present during the encounter and was fully available. All aspects of the patient interview, examination, medical decision making process, and medical care plan development were reviewed and approved by the faculty preceptor. The faculty preceptor is aware and concurs with the plan as stated in the body of this note and will attest to such by his/her cosignature. ATTENDING NOTE Patient independently seen and examined. Agree with resident's note. YEHUDA NOEL MD Dec 31, 2019 18:07 NAFISA BALL MD Jan 27, 2020 11:28
[2019-12-31] MEDS ORDERED: FURO40TA2 PO (18:59)
[2019-12-31] MEDS ORDERED: POTA1TAB14 PO (19:04)
[2019-12-31] MEDS ORDERED: MAPA500T2 PO (19:14)
[2019-12-31 20:00] VITALS: BP 131/68
[2019-12-31] MEDS: HumaLOG INSULIN (NovoLOG) PER UNIT SC SCH (21:00)
[2019-12-31] MEDS: IPRATROPIUM HFA INHALER 12.9 GRAMS (ATROVENT HFA) INH SCH (21:00)
[2019-12-31] MEDS: ADVAIR HFA 230/21MCG INHALER INH SCH (21:00)
[2019-12-31] MEDS: OMEPRAZOLE 20 MG CAP PO SCH (22:08)
[2019-12-31] MEDS: ROSUVASTATIN 10 MG TAB (CRESTOR) PO SCH (22:09)
[2019-12-31] MEDS: HEPARIN SOD (PORCINE) 5000UNITS/ML 1ML VIAL/SYRINGE SC SCH (22:09)
[2019-12-31] MEDS: RANOLAZINE 500 MG ER TAB PO SCH (22:09)
[2019-12-31] MEDS: LEVEMIR (INSULIN DETEMIR) 1 UNITS/0.01ML SC SCH (22:10)
[2020-01-01] VITALS: BP 108/52
[2020-01-01 04:00] VITALS: BP 121/63
[2020-01-01 04:46] LABS: HEMATOCRIT 32.1 % (42.0-52.0); HEMOGLOBIN 9.8 g/dl (13.5-17.5); MEAN CORPUSCULAR HGB CONC 30.5 g/dl (32.0-36.5); MEAN CORPUSCULAR VOLUME 78.7 fl (80.0-96.0); PLATELET COUNT, AUTOMATED 233 10^3/uL (150-450); RED BLOOD COUNT 4.08 10^6/uL (4.30-6.10); WHITE BLOOD COUNT 9.3 10^3/uL (4.0-10.0)
[2020-01-01 05:31] LABS: BLOOD UREA NITROGEN 17 MG/DL (7-18); CARBON DIOXIDE LEVEL 29 MEQ/L (21-32); CHLORIDE LEVEL 106 MEQ/L (98-107); CREATININE FOR GFR 1.18 MG/DL (0.70-1.30); GLOMERULAR FILTRATION RATE > 60.0 (>42); GLUCOSE, FASTING 70 MG/DL (70-100); POTASSIUM SERUM 3.2 MEQ/L (3.5-5.1); SODIUM LEVEL 137 MEQ/L (136-145)
[2020-01-01] MEDS ORDERED: POTASSIUM CHLORIDE 10 MEQ SR TABLET PO ONE ×2 (07:00→13:00)
[2020-01-01] MEDS: HumaLOG INSULIN (NovoLOG) PER UNIT SC SCH ×4 (07:30→21:00)
[2020-01-01] MEDS: ADVAIR HFA 230/21MCG INHALER INH SCH ×2 (07:50→19:59)
[2020-01-01] MEDS: IPRATROPIUM HFA INHALER 12.9 GRAMS (ATROVENT HFA) INH SCH ×2 (07:50→19:59)
[2020-01-01 08:00] VITALS: BP 152/94
[2020-01-01] MEDS: LEVEMIR (INSULIN DETEMIR) 1 UNITS/0.01ML SC SCH ×2 (09:08→21:00)
[2020-01-01] MEDS: HEPARIN SOD (PORCINE) 5000UNITS/ML 1ML VIAL/SYRINGE SC SCH ×2 (09:08→21:45)
[2020-01-01] MEDS: FUROSEMIDE 40MG/4ML VIAL (J1940) IV SCH ×2 (09:09)
[2020-01-01] MEDS: OMEPRAZOLE 20 MG CAP PO SCH ×2 (09:10→21:45)
[2020-01-01] MEDS: RANOLAZINE 500 MG ER TAB PO SCH ×2 (09:10→21:45)
[2020-01-01] MEDS: ISOSORBIDE MON. (IMDUR) 60 MG XR TAB PO SCH (09:11)
[2020-01-01] MEDS: FLUoxetine 10 MG CAP PO SCH (09:11)
[2020-01-01] MEDS: CLOPIDOGREL 75 MG TAB PO SCH (09:11)
[2020-01-01] MEDS: ASPIRIN 325 MG TAB PO SCH (09:11)
[2020-01-01] MEDS: METOPROLOL TART 12.5 MG PER 1/2 TAB PO SCH (09:12)
[2020-01-01 11:30] VITALS: BP 127/63
[2020-01-01] MEDS: FLUTICASONE PROP 0.05% NASAL SPRAY 16 GM (FLONASE) SCH (11:38)
[2020-01-01] MEDS: guaiFENesin ER 600 MG TAB PO SCH ×2 (11:38→21:45)
--- NOTE | 2020-01-01 13:55 | IPNPDOC ---
Date Seen The patient was seen on 01/01/20. Progress Note SUBJECTIVE: Patient seen and examined at the bedside. He notes only minimal improvement of his shortness of breath. He has been coughing but unable to produce any sputum as he is unable to expectorate. He is unable to sit up/get out of bed without much effort and worsening SOB. Otherwise, denies any N/V/D. OBJECTIVE PHYSICAL EXAMINATION: GENERAL APPEARANCE: NAD, laying flat in bed with ventimask on, calm, comfortable HEENT: MMM, EOMI, sclerae non-icteric CARDIOVASCULAR: RRR, no obvious m/r/g, +s1/s2 LUNGS: crackles are appreciated at the bases bilaterally up to the middle lobes, rhonchi at the middle lobes, audible wheezing is appreciated in upper airways, patient is speaking full sentences ABDOMEN: obese, nontender to palpation, +BS, non distended MUSCULOSKELETAL: no joint swelling EXTREMITIES: no lower extremity edema noted NEUROLOGICAL: no obvious focal deficits PSYCHIATRIC: normal mood/affect LABORATORY DATA: See below. MICROBIOLOGY: Please see below. ASSESSMENT: Artemio Alberto is a 74 YO M with COPD (3L home O2), dCHF (LVEF 65%) who presents with shortness of breath and dyspnea on exertion found to have respiratory panel positive for Rhinovirus and elevated BNP, pulmonary edema concerning for congestive heart failure exacerbation vs COPD exacerbation. . PLAN: 1. Shortness of breath: likely 2/2 Diastolic Congestive heart failure, decompensated. Sees Dr. Novak outpatient -Lasix IV 40mg Q8H increased to 60mg Q8H due to very little UOP since yesterday -Strict I/O, Fluid restriction 1500cc/day, daily weights -WBC improved to 9.3 today -Respiratory panel positive for Rhinovirus -Aggressive pulmonary toilet today: acapella, inhaled normal saline, Mucinex, Flonase for congestion -Procalcitonin pending 2. COPD: some audible wheezing on exam, coughing -Continue home inhalers: Advair, Incruse Ellipta 3. IDDM2: -SSI with hypoglycemic protocol -Lantus 24U daily, 50U QHS 4.Hx PVD s/p stents: -Continue Plavix, ASA 5. HTN: -Continue Metoprolol, Isosorbide 6. CAD s/p multiple stents: -Continue Ranexa 7. HLD: -continue Rosuvastatin PT/OT consult DVT ppx: Lovenox VS, I&O, 24H, Fishbone Vital Signs/I&O Vital Signs Date Time Temp Pulse Resp B/P (MAP) Pulse Ox O2 Delivery O2 Flow Rate FiO2 01/01/20 11:30 97.0 64 18 127/63 (84) 92 01/01/20 04:00 12.0 35 12/31/19 19:20 Venturi Mask I&O- Last 24 Hours up to 6 AM 01/01/20 06:00 Intake Total 600 ml Output Total 200 ml Balance 400 ml Laboratory Data 24H LABS Laboratory Tests 2 12/31/19 14:55: Immature Granulocyte % (Auto) 0.5, Neutrophils (%) (Auto) 86.3H, Lymphocytes (%) (Auto) 3.9L, Monocytes (%) (Auto) 8.6H, Eosinophils (%) (Auto) 0.3, Basophils (%) (Auto) 0.4, Neutrophils # (Auto) 10.4H, Lymphocytes # (Auto) 0.5L, Monocytes # (Auto) 1.0H, Eosinophils # (Auto) 0.0, Basophils # (Auto) 0.1, Nucleated Red Blood Cells % (auto) 0.0, Anion Gap 6L, Glomerular Filtration Rate > 60.0, Calcium Level 8.1L, Total Bilirubin 0.8, Direct Bilirubin 0.2, Aspartate Amino Transf (AST/SGOT) 22, Alanine Aminotransferase (ALT/SGPT) 11L, Alkaline Phosphatase 103, Total Creatine Kinase 52, Creatine Kinase MB 1.5, Creatine Kinase MB Relative Index 2.88, Troponin I 0.04, PE-Tnl-E-Type Natriuretic Peptide 6497H, Total Protein 6.2L, Albumin 2.6L, Albumin/Globulin Ratio 0.7 12/31/19 15:00: Lactic Acid Level 1.6 01/01/20 04:20: Nucleated Red Blood Cells % (auto) 0.0, Anion Gap 2L, Glomerular Filtration Rate > 60.0, Calcium Level 8.0L CBC/BMP Laboratory Tests 12/31/19 14:55 01/01/20 04:20 Microbiology Microbiology 12/31/19 Respiratory Virus Panel (PCR) ([facility]) - Final, Complete Human Rhinovirus/Enterovirus 12/31/19 Blood Culture, Received Pending 12/31/19 Blood Culture, Received Pending GME ATTESTATION GME ATTESTATION My faculty preceptor for this patient encounter was physically present during the encounter and was fully available. All aspects of the patient interview, examination, medical decision making process, and medical care plan development were reviewed and approved by the faculty preceptor. The faculty preceptor is aware and concurs with the plan as stated in the body of this note and will attest to such by his/her cosignature. ATTENDING NOTE Patient independently seen and examined. Agree with resident's note. YEHUDA NOEL MD Jan 01, 2020 13:55 NAFISA BALL MD Jan 27, 2020 11:29
[2020-01-01] MEDS: SODIUM CHLORIDE 0.9% 3ML NEB SOLUTION FOR INHALATION INH SCH ×2 (14:00→20:00)
[2020-01-01 15:43] VITALS: BP 109/68
[2020-01-01] MEDS: FUROSEMIDE 100MG/10ML VIAL (J1940) IV SCH (16:17)
[2020-01-01] MEDS: ONDANSETRON 4MG/2ML VIAL IV PRN (17:13)
[2020-01-01 20:00] VITALS: BP 118/60
[2020-01-01 21:19] LABS: MAGNESIUM LEVEL 2.2 MG/DL (1.8-2.4)
[2020-01-01] MEDS: ROSUVASTATIN 10 MG TAB (CRESTOR) PO SCH (21:45)
[2020-01-02] VITALS (7 sets, daily range): BP systolic 98–136; BP diastolic 55–73; O2SAT 88
[2020-01-02] MEDS: FUROSEMIDE 100MG/10ML VIAL (J1940) IV SCH ×4 (00:37→23:30)
[2020-01-02] MEDS: IPRATROPIUM 0.5MG/ALBUTEROL 2.5MG INH SOL UD 3ML (DUONEB) NEB SCH ×4 (01:52→20:00)
[2020-01-02] MEDS: SODIUM CHLORIDE 0.9% 3ML NEB SOLUTION FOR INHALATION INH SCH ×4 (03:31→20:00)
[2020-01-02 04:19] LABS: HEMATOCRIT 34.6 % (42.0-52.0); HEMOGLOBIN 10.3 g/dl (13.5-17.5); MEAN CORPUSCULAR HEMOGLOBIN 23.7 pg (27.0-33.0); MEAN CORPUSCULAR HGB CONC 29.8 g/dl (32.0-36.5); MEAN CORPUSCULAR VOLUME 79.5 fl (80.0-96.0); PLATELET COUNT, AUTOMATED 200 10^3/uL (150-450); RED BLOOD COUNT 4.35 10^6/uL (4.30-6.10); WHITE BLOOD COUNT 8.4 10^3/uL (4.0-10.0)
[2020-01-02 04:40] LABS: CALCIUM LEVEL 7.9 MG/DL (8.8-10.2); CREATININE FOR GFR 1.44 MG/DL (0.70-1.30); GLOMERULAR FILTRATION RATE 50.9 (>42); MAGNESIUM LEVEL 2.1 MG/DL (1.8-2.4); POTASSIUM SERUM 4.1 MEQ/L (3.5-5.1)
[2020-01-02] MEDS: ONDANSETRON 4MG/2ML VIAL IV PRN ×2 (06:51→16:30)
[2020-01-02] MEDS: HumaLOG INSULIN (NovoLOG) PER UNIT SC SCH ×4 (07:30→21:00)
[2020-01-02] MEDS: IPRATROPIUM HFA INHALER 12.9 GRAMS (ATROVENT HFA) INH SCH ×2 (08:07→20:54)
[2020-01-02] MEDS: ADVAIR HFA 230/21MCG INHALER INH SCH ×2 (08:07→20:35)
[2020-01-02] MEDS: HEPARIN SOD (PORCINE) 5000UNITS/ML 1ML VIAL/SYRINGE SC SCH ×2 (09:27→21:17)
[2020-01-02] MEDS: LEVEMIR (INSULIN DETEMIR) 1 UNITS/0.01ML SC SCH ×2 (09:27→21:00)
[2020-01-02] MEDS: ASPIRIN 325 MG TAB PO SCH (09:27)
[2020-01-02] MEDS: OMEPRAZOLE 20 MG CAP PO SCH ×2 (09:28→21:17)
[2020-01-02] MEDS: RANOLAZINE 500 MG ER TAB PO SCH ×2 (09:28→21:17)
[2020-01-02] MEDS: FLUoxetine 10 MG CAP PO SCH (09:28)
[2020-01-02] MEDS: CLOPIDOGREL 75 MG TAB PO SCH (09:29)
[2020-01-02] MEDS: guaiFENesin ER 600 MG TAB PO SCH ×2 (09:29→21:17)
[2020-01-02] MEDS: METOPROLOL TART 12.5 MG PER 1/2 TAB PO SCH (09:29)
[2020-01-02] MEDS: FLUTICASONE PROP 0.05% NASAL SPRAY 16 GM (FLONASE) SCH (09:30)
[2020-01-02] MEDS: ISOSORBIDE MON. (IMDUR) 60 MG XR TAB PO SCH (09:30)
--- NOTE | 2020-01-02 10:55 | IPNPDOC ---
Date Seen The patient was seen on 01/02/20. Progress Note SUBJECTIVE: Patient seen and examined at the bedside. He is sitting up working with PT and feels much better. Still coughing and producing sputum but otherwise he is now on 3-4L NC. Denies any CP/palpitations, n/v/d. OBJECTIVE PHYSICAL EXAMINATION: GENERAL APPEARANCE: NAD, laying flat in bed with ventimask on, calm, comfortable HEENT: MMM, EOMI, sclerae non-icteric CARDIOVASCULAR: RRR, no obvious m/r/g, +s1/s2 LUNGS: crackles are appreciated at the bases bilaterally up to the middle lobes, rhonchi at the middle lobes, audible wheezing is appreciated in upper airways, patient is speaking full sentences ABDOMEN: obese, nontender to palpation, +BS, non distended MUSCULOSKELETAL: no joint swelling EXTREMITIES: no lower extremity edema noted NEUROLOGICAL: no obvious focal deficits PSYCHIATRIC: normal mood/affect LABORATORY DATA: See below. MICROBIOLOGY: Please see below. ASSESSMENT: Artemio Alberto is a 74 YO M with COPD (3L home O2), dCHF (LVEF 65%) who presents with shortness of breath and dyspnea on exertion found to have respiratory panel positive for Rhinovirus and elevated BNP, pulmonary edema concerning for congestive heart failure exacerbation vs COPD exacerbation. . PLAN: 1. Shortness of breath: likely 2/2 Diastolic Congestive heart failure, decompensated. Sees Dr. Novak outpatient -Lasix IV 40mg Q8H -Strict I/O, Fluid restriction 1500cc/day, daily weights -WBC improved to 8.4 -Respiratory panel positive for Rhinovirus -Aggressive pulmonary toilet today: acapella, inhaled normal saline, Mucinex, Flonase for congestion -Procalcitonin pending 2. Bacteremia: -Prelim blood cultures positive for GP cocci in clusters -Blood cx repeated x2, Started IV Vancomycin 3. COPD: -Continue home inhalers: Advair, Incruse Ellipta -Continue DuoNebs 4. IDDM2: -SSI with hypoglycemic protocol -Lantus 24U daily, 50U QHS 5.Hx PVD s/p stents: -Continue Plavix, ASA 6. HTN: -Continue Metoprolol, Isosorbide 7. CAD s/p multiple stents: -Continue Ranexa 8. HLD: -continue Rosuvastatin PT/OT consult DVT ppx: Lovenox VS, I&O, 24H, Fishbone Vital Signs/I&O Vital Signs Date Time Temp Pulse Resp B/P (MAP) Pulse Ox O2 Delivery O2 Flow Rate FiO2 01/02/20 04:00 97.9 65 18 127/69 (88) 90 Venturi Mask 15.0 40 l I&O- Last 24 Hours up to 6 AM 01/02/20 06:00 Intake Total 600 ml Output Total 400 ml Balance 200 ml Laboratory Data 24H LABS Laboratory Tests 2 01/02/20 03:54: Nucleated Red Blood Cells % (auto) 0.0, Anion Gap 3L, Glomerular Filtration Rate 50.9, Calcium Level 7.9L, Magnesium Level 2.1 CBC/BMP Laboratory Tests 01/02/20 03:54 Microbiology Microbiology 12/31/19 Respiratory Virus Panel (PCR) ([facility]) - Final, Complete Human Rhinovirus/Enterovirus 12/31/19 Blood Culture - Preliminary, Resulted No growth after 24 hours . All specim... 12/31/19 Blood Culture - Preliminary, Resulted No growth after 24 hours . All specim... GME ATTESTATION GME ATTESTATION My faculty preceptor for this patient encounter was physically present during the encounter and was fully available. All aspects of the patient interview, examination, medical decision making process, and medical care plan development were reviewed and approved by the faculty preceptor. The faculty preceptor is aware and concurs with the plan as stated in the body of this note and will attest to such by his/her cosignature. ATTENDING NOTE Patient independently seen and examined. Agree with resident's note. YEHUDA NOEL MD Jan 02, 2020 07:58 NAFISA BALL MD Jan 27, 2020 11:30
[2020-01-02] MEDS: VANCOMYCIN HCL 1,000 MG, VIAL MATE ADAPTER 1 EACH in D5W 250 ML IV SCH ×2 (11:39→23:30)
[2020-01-02] MEDS ORDERED: VANCOMYCIN HCL 500 MG in D5W MINI-BAG PLUS 100 ML IV ONE (12:00)
[2020-01-02] MEDS ORDERED: SLF 3 ML SYR IV PRN (15:15)
[2020-01-02] MEDS: ONDANSETRON 4 MG ORAL DISINTEGRATING TAB SL PRN (17:49)
[2020-01-02] MEDS ORDERED: NS 1,000 ML IV ONE (18:15)
[2020-01-02] MEDS: SLF 3 ML SYR IV SCH (21:18)
[2020-01-02] MEDS: ROSUVASTATIN 10 MG TAB (CRESTOR) PO SCH (21:18)
[2020-01-03] MEDS: IPRATROPIUM 0.5MG/ALBUTEROL 2.5MG INH SOL UD 3ML (DUONEB) NEB SCH ×4 (02:00→19:55)
[2020-01-03] MEDS: SODIUM CHLORIDE 0.9% 3ML NEB SOLUTION FOR INHALATION INH SCH ×4 (02:00→19:54)
[2020-01-03 04:00] VITALS: BP_SYST 90
[2020-01-03 05:59] LABS: HEMATOCRIT 33.3 % (42.0-52.0); HEMOGLOBIN 10.2 g/dl (13.5-17.5); MEAN CORPUSCULAR HEMOGLOBIN 24.2 pg (27.0-33.0); MEAN CORPUSCULAR HGB CONC 30.6 g/dl (32.0-36.5); MEAN CORPUSCULAR VOLUME 78.9 fl (80.0-96.0); PLATELET COUNT, AUTOMATED 256 10^3/uL (150-450); RED BLOOD COUNT 4.22 10^6/uL (4.30-6.10); WHITE BLOOD COUNT 12.5 10^3/uL (4.0-10.0)
[2020-01-03] MEDS: SLF 3 ML SYR IV SCH ×3 (06:02→22:03)
[2020-01-03 06:29] LABS: CALCIUM LEVEL 8.1 MG/DL (8.8-10.2); CREATININE FOR GFR 2.37 MG/DL (0.70-1.30); GLOMERULAR FILTRATION RATE 28.6 (>42); MAGNESIUM LEVEL 2.3 MG/DL (1.8-2.4); POTASSIUM SERUM 5.3 MEQ/L (3.5-5.1)
[2020-01-03] MEDS: HumaLOG INSULIN (NovoLOG) PER UNIT SC SCH ×4 (07:30→20:37)
[2020-01-03] MEDS: ADVAIR HFA 230/21MCG INHALER INH SCH ×2 (07:32→19:38)
[2020-01-03] MEDS: IPRATROPIUM HFA INHALER 12.9 GRAMS (ATROVENT HFA) INH SCH ×2 (07:34→21:59)
[2020-01-03 08:00] VITALS: BP 97/58
[2020-01-03] MEDS: METOPROLOL TART 12.5 MG PER 1/2 TAB PO SCH (09:00)
[2020-01-03] MEDS: LEVEMIR (INSULIN DETEMIR) 1 UNITS/0.01ML SC SCH ×3 (09:00→22:03)
[2020-01-03] MEDS: ISOSORBIDE MON. (IMDUR) 60 MG XR TAB PO SCH (09:00)
[2020-01-03] MEDS ORDERED: LEVEMIR (INSULIN DETEMIR) 1 UNITS/0.01ML SC ONE (10:00)
[2020-01-03] MEDS: ASPIRIN 325 MG TAB PO SCH (10:08)
[2020-01-03] MEDS: guaiFENesin ER 600 MG TAB PO SCH ×2 (10:08→20:36)
[2020-01-03] MEDS: CLOPIDOGREL 75 MG TAB PO SCH (10:09)
[2020-01-03] MEDS: FLUoxetine 10 MG CAP PO SCH (10:09)
[2020-01-03] MEDS: OMEPRAZOLE 20 MG CAP PO SCH ×2 (10:09→20:36)
[2020-01-03] MEDS: ONDANSETRON 4MG/2ML VIAL IV PRN (10:09)
[2020-01-03] MEDS: HEPARIN SOD (PORCINE) 5000UNITS/ML 1ML VIAL/SYRINGE SC SCH ×2 (10:10→20:37)
[2020-01-03] MEDS: FLUTICASONE PROP 0.05% NASAL SPRAY 16 GM (FLONASE) SCH (10:11)
[2020-01-03] MEDS: RANOLAZINE 500 MG ER TAB PO SCH ×2 (10:17→20:36)
[2020-01-03 12:00] VITALS: BP 123/56
--- NOTE | 2020-01-03 14:51 | IPNPDOC ---
Date Seen The patient was seen on 01/03/20. Progress Note SUBJECTIVE: Patient seen and examined at the bedside. He had some hypotension yesterday which has resolved. Shortness of breath is improving but renal function is worse today. He is making good urine but difficult to quantify as he has difficulty with collection. He still has significant dyspnea with ambulation and can only get out of bed onto bedside commode. OBJECTIVE PHYSICAL EXAMINATION: GENERAL APPEARANCE: NAD, laying flat in bed with ventimask on, calm, comfortable HEENT: MMM, EOMI, sclerae non-icteric CARDIOVASCULAR: RRR, no obvious m/r/g, +s1/s2 LUNGS: decreased breath sounds throughout all lung rosales but no crackles or wheezing are appreciated ABDOMEN: obese, nontender to palpation, +BS, non distended MUSCULOSKELETAL: no joint swelling EXTREMITIES: no lower extremity edema noted NEUROLOGICAL: no obvious focal deficits PSYCHIATRIC: normal mood/affect LABORATORY DATA: See below. MICROBIOLOGY: Please see below. ASSESSMENT: Artemio Alberto is a 74 YO M with COPD (3L home O2), dCHF (LVEF 65%) who presents with shortness of breath and dyspnea on exertion found to have respiratory panel positive for Rhinovirus and elevated BNP, pulmonary edema concerning for congestive heart failure exacerbation vs COPD exacerbation. The patient also had positive blood culture x1 with gram positive cocci in clusters, now on IV Vancomycin. Thus far, repeat cultures are negative. Oxygen saturation is improving but today renal function has worsened, so IV Lasix has been held. . PLAN: 1. Shortness of breath: likely 2/2 Diastolic Congestive heart failure, decompensated. Sees Dr. Novak outpatient -Holding Lasix IV 40mg Q8H 2/2 worsened renal function -Strict I/O, Fluid restriction 1500cc/day, daily weights -WBC increased today to 12.5 -Respiratory panel positive for Rhinovirus -Aggressive pulmonary toilet today: acapella, inhaled normal saline, Mucinex, Flonase for congestion -Procalcitonin pending -BNP increased to 8794 since admission 2. Bacteremia: -Prelim blood cultures positive for GP cocci in clusters -Blood cx repeated x2, Started IV Vancomycin 3. MARIAM: likely prerenal -BUN/Cr increased today to 38/2.37, bicarb WNL -No nephrotoxic medications, will hold off on diuresis for now, will give fluid bolus -Hyperkalemic at 5.3, will continue to monitor 4. COPD: -Continue home inhalers: Advair, Incruse Ellipta -Continue DuoNebs 5. IDDM2: patient has had hypoglycemia from low oral intake over past few days, insulin adjusted accordingly -SSI with hypoglycemic protocol -Lantus 24U daily, 50U QHS 6.Hx PVD s/p stents: -Continue Plavix, ASA 7. HTN: -Continue Metoprolol, Isosorbide 8. CAD s/p multiple stents: -Continue Ranexa 9. HLD: -continue Rosuvastatin PT/OT consult DVT ppx: Lovenox VS, I&O, 24H, Fishbone Vital Signs/I&O Vital Signs Date Time Temp Pulse Resp B/P (MAP) Pulse Ox O2 Delivery O2 Flow Rate FiO2 01/03/20 12:00 6.0 01/03/20 12:00 99.2 61 22 123/56 (78) 93 High Flow Cannula 01/02/20 20:00 40 I&O- Last 24 Hours up to 6 AM 01/03/20 06:00 Intake Total 360 ml Output Total 500 ml Balance -140 ml Laboratory Data 24H LABS Laboratory Tests 2 01/03/20 04:59: Nucleated Red Blood Cells % (auto) 0.0, Anion Gap 7L, Glomerular Filtration Rate 28.6L, Calcium Level 8.1L, Magnesium Level 2.3 CBC/BMP Laboratory Tests 01/03/20 04:59 Microbiology Microbiology 01/02/20 Blood Culture - Preliminary, Resulted No growth after 24 hours . All specim... 01/02/20 Blood Culture - Preliminary, Resulted No growth after 24 hours . All specim... 12/31/19 Respiratory Virus Panel (PCR) ([facility]) - Final, Complete Human Rhinovirus/Enterovirus 12/31/19 Blood Culture - Preliminary, Resulted 12/31/19 Blood Culture - Preliminary, Resulted No Growth after 48 hours. All Specime... GME ATTESTATION GME ATTESTATION My faculty preceptor for this patient encounter was physically present during the encounter and was fully available. All aspects of the patient interview, examination, medical decision making process, and medical care plan development were reviewed and approved by the faculty preceptor. The faculty preceptor is aware and concurs with the plan as stated in the body of this note and will attest to such by his/her cosignature. ATTENDING NOTE Patient independently seen and examined. Agree with resident's note. YEHUDA NOEL MD Jan 03, 2020 14:51 NAFISA BALL MD Jan 27, 2020 11:31
[2020-01-03 16:00] VITALS: BP 91/55
[2020-01-03] MEDS ORDERED: METOCLOPRAMIDE INJ 10MG/2ML VIAL (J2765 PER 1) IV ONE (17:15)
[2020-01-03] MEDS: IPRATROPIUM 0.5MG/ALBUTEROL 2.5MG INH SOL UD 3ML (DUONEB) NEB PRN (17:37)
[2020-01-03 20:01] VITALS: BP 118/64
[2020-01-03] MEDS: ROSUVASTATIN 10 MG TAB (CRESTOR) PO SCH (20:36)
[2020-01-04] VITALS (10 sets, daily range): BP systolic 94–145; BP diastolic 51–68; O2SAT 90–95
[2020-01-04] MEDS: IPRATROPIUM 0.5MG/ALBUTEROL 2.5MG INH SOL UD 3ML (DUONEB) NEB SCH ×4 (01:40→19:30)
[2020-01-04] MEDS: SODIUM CHLORIDE 0.9% 3ML NEB SOLUTION FOR INHALATION INH SCH ×4 (01:40→19:30)
[2020-01-04] MEDS: IPRATROPIUM 0.5MG/ALBUTEROL 2.5MG INH SOL UD 3ML (DUONEB) NEB PRN ×2 (04:59→11:10)
[2020-01-04 05:15] LABS: HEMATOCRIT 32.1 % (42.0-52.0); HEMOGLOBIN 9.7 g/dl (13.5-17.5); MEAN CORPUSCULAR HEMOGLOBIN 23.5 pg (27.0-33.0); MEAN CORPUSCULAR HGB CONC 30.2 g/dl (32.0-36.5); MEAN CORPUSCULAR VOLUME 77.7 fl (80.0-96.0); PLATELET COUNT, AUTOMATED 194 10^3/uL (150-450); RED BLOOD COUNT 4.13 10^6/uL (4.30-6.10); WHITE BLOOD COUNT 11.4 10^3/uL (4.0-10.0)
[2020-01-04 05:54] LABS: CALCIUM LEVEL 7.4 MG/DL (8.8-10.2); CREATININE FOR GFR 2.23 MG/DL (0.70-1.30); GLOMERULAR FILTRATION RATE 30.7 (>42); MAGNESIUM LEVEL 2.2 MG/DL (1.8-2.4); VANCOMYCIN RANDOM 11.1 UG/ML
[2020-01-04] MEDS: SLF 3 ML SYR IV SCH ×3 (06:02→22:25)
[2020-01-04 06:27] LABS: POTASSIUM SERUM 4.1 MEQ/L (3.5-5.1)
[2020-01-04] MEDS: HumaLOG INSULIN (NovoLOG) PER UNIT SC SCH ×4 (07:30→21:00)
[2020-01-04] MEDS ORDERED: VANCOMYCIN HCL 1,000 MG, VIAL MATE ADAPTER 1 EACH in D5W 250 ML IV SCH (08:00)
[2020-01-04] MEDS ORDERED: VANCOMYCIN HCL 500 MG in D5W MINI-BAG PLUS 100 ML IV ONE (09:00)
[2020-01-04] MEDS: LEVEMIR (INSULIN DETEMIR) 1 UNITS/0.01ML SC SCH ×2 (09:00→22:24)
[2020-01-04] MEDS: ADVAIR HFA 230/21MCG INHALER INH SCH ×2 (09:09→19:32)
[2020-01-04] MEDS: IPRATROPIUM HFA INHALER 12.9 GRAMS (ATROVENT HFA) INH SCH ×2 (09:09→19:31)
[2020-01-04] MEDS: ASPIRIN 325 MG TAB PO SCH (09:30)
[2020-01-04] MEDS: CLOPIDOGREL 75 MG TAB PO SCH (09:30)
[2020-01-04] MEDS: METOPROLOL TART 12.5 MG PER 1/2 TAB PO SCH (09:30)
[2020-01-04] MEDS: RANOLAZINE 500 MG ER TAB PO SCH ×2 (09:31→22:29)
[2020-01-04] MEDS: OMEPRAZOLE 20 MG CAP PO SCH ×2 (09:31→22:22)
[2020-01-04] MEDS: ISOSORBIDE MON. (IMDUR) 60 MG XR TAB PO SCH (09:31)
[2020-01-04] MEDS: FLUoxetine 10 MG CAP PO SCH (09:31)
[2020-01-04] MEDS: FLUTICASONE PROP 0.05% NASAL SPRAY 16 GM (FLONASE) SCH (09:32)
[2020-01-04] MEDS: guaiFENesin ER 600 MG TAB PO SCH ×2 (09:32→22:22)
[2020-01-04] MEDS: HEPARIN SOD (PORCINE) 5000UNITS/ML 1ML VIAL/SYRINGE SC SCH ×2 (09:32→22:24)
--- NOTE | 2020-01-04 09:36 | IPNPDOC ---
Text Note Date of Service The patient was seen on 01/04/20. NOTE SUBJECTIVE: Patient seen and examined at the bedside. No new medical complaints this morning. Feels his breathing has significantly improved, still complains of dyspnea on exertion. OBJECTIVE PHYSICAL EXAMINATION: GENERAL APPEARANCE: NAD, disheveled, laying flat in bed with nasal cannula on, calm, comfortable HEENT: NC/AT CARDIOVASCULAR: RRR, no obvious m/r/g, +s1/s2 LUNGS: scattered wheezes ABDOMEN: obese, nontender to palpation, +BS, non distended EXTREMITIES: no lower extremity edema noted PSYCHIATRIC: normal mood/affect, AAOx3 LABORATORY DATA: See below. MICROBIOLOGY: Please see below. ASSESSMENT: 74 yo M with COPD (3L home O2), HFpEF (LVEF 65%) who presents with shortness of breath and dyspnea on exertion found to have respiratory panel positive for Rhinovirus and elevated BNP, pulmonary edema concerning for congestive heart failure exacerbation vs COPD exacerbation. 05/17 BCx + Staph hominus - likely contaminant, discontinue vanco. hospital stay complicated with MARIAM - appears to be secondary to CHF complicated with Vanco toxicity. #SOB - multifactorial - COPD, CHF, rhinovirus - known history of chronic hypoxic respiratory failure/CHF - improving - wean O2 - holding diuretics secondary to MARIAM -Strict I/O, Fluid restriction 1500cc/day, daily weights -Respiratory panel positive for Rhinovirus -Aggressive pulmonary toilet: acapella, inhaled normal saline, Mucinex, Flonase for congestion -Procalcitonin pending #Bacteremia: -likely contaminant - vanco discontinued #MARIAM - improving - hold diuretic therapy for now -No nephrotoxic medications #COPD: -Continue home inhalers: Advair, Incruse Ellipta -Continue DuoNebs #IDDM2 - continue sliding scale + basal insulin - am dose held today #Hx PVD s/p stents: -Continue Plavix, ASA # HTN: -Continue Metoprolol, Isosorbide #CAD s/p multiple stents: -Continue Ranexa # HLD: -continue Rosuvastatin #gait dysfunction PT/OT consult DVT ppx: heparin SC [facility] [phone] VS,Fishbone, I+O VS, Fishbone, I+O Laboratory Tests 01/04/20 04:30 Vital Signs Date Time Temp Pulse Resp B/P (MAP) Pulse Ox O2 Delivery O2 Flow Rate FiO2 01/04/20 08:00 99.1 62 22 116/58 (77) 94 Nasal Cannula 6.0 01/02/20 20:00 40 I&O- Last 24 Hours up to 6 AM 01/04/20 06:00 Intake Total 540 ml Output Total 600 ml Balance -60 ml NAFISA BALL MD Jan 04, 2020 09:36
[2020-01-04 11:17] LABS: ABG BASE EXCESS -4.4 (-2.0-2.0); ABG HCO3 20.9 MEQ/L (22.0-26.0); ABG O2 SATURATION 55.9 % (95.0-99.0); ABG PARTIAL PRESSURE CO2 39.3 mmHg (35.0-45.0); ABG STANDARD HCO3 20.1 MEQ/L (22.0-26.0); ABG TOTAL CO2 22.1 MEQ/L (23.0-31.0); ABG pH (ARTERIAL) 7.344 UNITS (7.350-7.450)
[2020-01-04 11:19] LABS: ABG PARTIAL PRESSURE O2 34.3 mmHg (75.0-100.0)
[2020-01-04] MEDS ORDERED: FUROSEMIDE 100MG/10ML VIAL (J1940) IV ONE (12:00)
[2020-01-04] MEDS: methylPREDNISolone 125MG 2ML VIAL IV SCH ×2 (12:02→17:36)
[2020-01-04] MEDS: FUROSEMIDE 100MG/10ML VIAL (J1940) IV SCH (17:36)
[2020-01-04] MEDS: ROSUVASTATIN 10 MG TAB (CRESTOR) PO SCH (22:22)
[2020-01-05] VITALS (16 sets, daily range): BP systolic 105–131; BP diastolic 50–62; O2SAT 90–98
[2020-01-05] MEDS: methylPREDNISolone 125MG 2ML VIAL IV SCH ×4 (00:01→18:14)
[2020-01-05] MEDS: IPRATROPIUM 0.5MG/ALBUTEROL 2.5MG INH SOL UD 3ML (DUONEB) NEB SCH ×4 (01:21→20:27)
[2020-01-05] MEDS: SODIUM CHLORIDE 0.9% 3ML NEB SOLUTION FOR INHALATION INH SCH ×4 (01:21→20:27)
[2020-01-05] MEDS: SLF 3 ML SYR IV SCH ×3 (05:09→23:10)
[2020-01-05 06:44] LABS: HEMATOCRIT 32.1 % (42.0-52.0); MEAN CORPUSCULAR HEMOGLOBIN 23.6 pg (27.0-33.0); MEAN CORPUSCULAR HGB CONC 31.2 g/dl (32.0-36.5); MEAN CORPUSCULAR VOLUME 75.9 fl (80.0-96.0); PLATELET COUNT, AUTOMATED 204 10^3/uL (150-450); RED BLOOD COUNT 4.23 10^6/uL (4.30-6.10); WHITE BLOOD COUNT 9.3 10^3/uL (4.0-10.0)
[2020-01-05 07:01] LABS: CALCIUM LEVEL 7.6 MG/DL (8.8-10.2); CREATININE FOR GFR 2.3 MG/DL (0.70-1.30); GLOMERULAR FILTRATION RATE 29.7 (>42); MAGNESIUM LEVEL 2.3 MG/DL (1.8-2.4); POTASSIUM SERUM 4.2 MEQ/L (3.5-5.1)
[2020-01-05] MEDS: IPRATROPIUM HFA INHALER 12.9 GRAMS (ATROVENT HFA) INH SCH ×2 (09:13→20:28)
[2020-01-05] MEDS: ADVAIR HFA 230/21MCG INHALER INH SCH ×2 (09:13→20:27)
[2020-01-05] MEDS: FLUoxetine 10 MG CAP PO SCH (09:53)
[2020-01-05] MEDS: RANOLAZINE 500 MG ER TAB PO SCH ×2 (09:53→20:11)
[2020-01-05] MEDS: ISOSORBIDE MON. (IMDUR) 60 MG XR TAB PO SCH (09:54)
[2020-01-05] MEDS: guaiFENesin ER 600 MG TAB PO SCH ×2 (09:54→20:12)
[2020-01-05] MEDS: OMEPRAZOLE 20 MG CAP PO SCH ×2 (09:54→20:12)
[2020-01-05] MEDS: CLOPIDOGREL 75 MG TAB PO SCH (09:54)
[2020-01-05] MEDS: METOPROLOL TART 12.5 MG PER 1/2 TAB PO SCH (09:55)
[2020-01-05] MEDS: LEVEMIR (INSULIN DETEMIR) 1 UNITS/0.01ML SC SCH ×2 (09:56→20:27)
[2020-01-05] MEDS: HEPARIN SOD (PORCINE) 5000UNITS/ML 1ML VIAL/SYRINGE SC SCH ×2 (09:56→20:12)
[2020-01-05] MEDS: HumaLOG INSULIN (NovoLOG) PER UNIT SC SCH ×4 (09:57→20:11)
[2020-01-05] MEDS: FUROSEMIDE 100MG/10ML VIAL (J1940) IV SCH ×2 (09:58→17:00)
[2020-01-05] MEDS: FLUTICASONE PROP 0.05% NASAL SPRAY 16 GM (FLONASE) SCH (09:58)
[2020-01-05] MEDS: ASPIRIN 325 MG TAB PO SCH (10:01)
--- NOTE | 2020-01-05 11:11 | SKHPN ---
[facility] Progress Note Progress Note [facility]OULD BE [facility] PROGRESS NOTE SUBJECTIVE: 74 YO male was admitted due to worsening shortness of breath 4 days ago. Today, the patient is still short of breath on talking, on a 6 L oxygen via nasal cannula. He still has dry unproductive cough, although lesser in frequency. He still gets severely dyspneic on exertion. Cannot speak in full sentences without stopping to take a breath. OBJECTIVE: PHYSICAL EXAMINATION: GENERAL APPEARANCE: NAD, sitting on the edge of the bed with nasal cannula on, calm, comfortable HEENT: NC/AT CARDIOVASCULAR: RRR, no obvious m/r/g, +s1/s2 LUNGS: B/L normal breath sounds, no wheezing ABDOMEN: obese, nontender to palpation, +BS, non distended EXTREMITIES: mild lower extremity edema noted PSYCHIATRIC: normal mood/affect, AAOx3 LABORATORY DATA: See below. MICROBIOLOGY: Please see below. ASSESSMENT: 74 yo M with COPD (3L home O2), HFpEF (LVEF 65%) who presents with shortness of breath and dyspnea on exertion found to have respiratory panel positive for Rhinovirus and elevated BNP, pulmonary edema concerning for congestive heart failure exacerbation vs COPD exacerbation. 05/17 BCx + Staph h ominus - likely contaminant, discontinue vanco. hospital stay complicated with MARIAM - appears to be secondary to CHF complicated with Vanco toxicity. #SOB - multifactorial - COPD, CHF, rhinovirus - known history of chronic hypoxic respiratory failure/CHF - improving - wean O2, baseline 3L nasal cannula ( Home O2 ) -Strict I/O, Fluid restriction 1500cc/day, daily weights -Respiratory panel positive for Rhinovirus -Aggressive pulmonary toilet: acapella, inhaled normal saline, Mucinex, Flonase for congestion -Procalcitonin pending #Bacteremia: -likely contaminant - vanco discontinued #MARIAM - Cr unchanged. - No nephrotoxic medications - Nephrology consulted , recommendations appreciated. #COPD: -Continue home inhalers: Advair, Increase Ellipta -Continue DuoNebs #IDDM2 - continue sliding scale + basal insulin #Hx PVD s/p stents: -Continue Plavix, ASA # HTN: -Continue Metoprolol, Isosorbide #CAD s/p multiple stents: -Continue Ranexa # HLD: -continue Rosuvastatin #gait dysfunction PT/OT consult DVT ppx: heparin SC Disposition: Pending Clinical Improvement of Oxygen requirements and renal function. Contact info for daughter who is aware of Pt status: Nyla Gray [phone] SHOULD BE [facility] PROGRESS NOTE Allergies Coded Allergies: Cephalosporins (Verified Allergy, Intermediate, RASH, 06/21/19) RASH PER Penicillins (Verified Allergy, Intermediate, RASH, 06/21/19) clavulanic acid (Verified Allergy, Intermediate, RASH, 06/21/19) levofloxacin (Verified Allergy, Intermediate, RASH, 06/21/19) VS, I&O, 24H, Fishbone Vital Signs/I&O Vital Signs Date Time Temp Pulse Resp B/P (MAP) Pulse Ox O2 Delivery O2 Flow Rate FiO2 01/05/20 09:55 70 116/56 01/05/20 07:56 98.8 18 90 Nasal Cannula 01/05/20 07:00 6.0 01/02/20 20:00 40 I&O- Last 24 Hours up to 6 AM 01/05/20 06:00 Intake Total 480 ml Output Total 3025 ml Balance -2545 ml Laboratory Data 24H LABS Laboratory Tests 2 01/05/20 06:18: Nucleated Red Blood Cells % (auto) 0.2H, Anion Gap 11, Glomerular Filtration Rate 29.7L, Calcium Level 7.6L, Magnesium Level 2.3 CBC/BMP Laboratory Tests 01/05/20 06:18 Microbiology Microbiology 01/02/20 Blood Culture - Preliminary, Resulted No Growth after 48 hours. All Specime... 01/02/20 Blood Culture - Preliminary, Resulted No Growth after 48 hours. All Specime... 12/31/19 Respiratory Virus Panel (PCR) ([facility]) - Final, Complete Human Rhinovirus/Enterovirus 12/31/19 Blood Culture - Final, Complete Staphylococcus Hominis Ssp Janette 12/31/19 Blood Culture - Preliminary, Resulted No Growth after 72 hours. All specime... GME ATTESTATION GME ATTESTATION My faculty preceptor for this patient encounter was physically present during the encounter and was fully available. All aspects of the patient interview, examination, medical decision making process, and medical care plan development were reviewed and approved by the faculty preceptor. The faculty preceptor is aware and concurs with the plan as stated in the body of this note and will attest to such by his/her cosignature. ATTENDING NOTE Patient independently seen and examined. Agree with resident's note. Julisa Mcnulty MD Jan 05, 2020 11:11 NAFISA BALL MD Jan 27, 2020 11:32
[2020-01-05] MEDS: AZITHROMYCIN INJ 500 MG, VIAL MATE ADAPTER 1 EACH in D5W 250 ML IV SCH (13:05)
[2020-01-05] MEDS: DOXYCYCLINE HYCLATE 100MG TABLET PO SCH ×2 (13:11→20:12)
[2020-01-05] MEDS: ONDANSETRON 4MG/2ML VIAL IV PRN (14:54)
[2020-01-05] MEDS: ROSUVASTATIN 10 MG TAB (CRESTOR) PO SCH (20:11)
[2020-01-06] VITALS (22 sets, daily range): BP systolic 118–144; BP diastolic 56–68; O2SAT 86–99
[2020-01-06] MEDS: methylPREDNISolone 125MG 2ML VIAL IV SCH ×2 (01:33→06:52)
[2020-01-06] MEDS: SODIUM CHLORIDE 0.9% 3ML NEB SOLUTION FOR INHALATION INH SCH ×4 (02:13→19:55)
[2020-01-06] MEDS: IPRATROPIUM 0.5MG/ALBUTEROL 2.5MG INH SOL UD 3ML (DUONEB) NEB SCH ×4 (02:13→19:55)
[2020-01-06 06:21] LABS: HEMATOCRIT 31.8 % (42.0-52.0); HEMOGLOBIN 9.9 g/dl (13.5-17.5); MEAN CORPUSCULAR HEMOGLOBIN 23.5 pg (27.0-33.0); MEAN CORPUSCULAR HGB CONC 31.1 g/dl (32.0-36.5); MEAN CORPUSCULAR VOLUME 75.5 fl (80.0-96.0); PLATELET COUNT, AUTOMATED 212 10^3/uL (150-450); RED BLOOD COUNT 4.21 10^6/uL (4.30-6.10); WHITE BLOOD COUNT 12.6 10^3/uL (4.0-10.0)
[2020-01-06 06:38] LABS: CREATININE FOR GFR 2.42 MG/DL (0.70-1.30); POTASSIUM SERUM 3.2 MEQ/L (3.5-5.1)
[2020-01-06] MEDS: SLF 3 ML SYR IV SCH ×3 (06:52→22:49)
[2020-01-06] MEDS: METOPROLOL TART 12.5 MG PER 1/2 TAB PO SCH (08:19)
[2020-01-06] MEDS: RANOLAZINE 500 MG ER TAB PO SCH ×2 (08:19→21:08)
[2020-01-06] MEDS: FLUoxetine 10 MG CAP PO SCH (08:19)
[2020-01-06] MEDS: ASPIRIN 325 MG TAB PO SCH (08:19)
[2020-01-06] MEDS: DOXYCYCLINE HYCLATE 100MG TABLET PO SCH (08:20)
[2020-01-06] MEDS: ISOSORBIDE MON. (IMDUR) 60 MG XR TAB PO SCH (08:20)
[2020-01-06] MEDS: HEPARIN SOD (PORCINE) 5000UNITS/ML 1ML VIAL/SYRINGE SC SCH ×2 (08:21→21:09)
[2020-01-06] MEDS: guaiFENesin ER 600 MG TAB PO SCH ×2 (08:22→21:08)
[2020-01-06] MEDS: OMEPRAZOLE 20 MG CAP PO SCH ×2 (08:22→21:08)
[2020-01-06] MEDS: CLOPIDOGREL 75 MG TAB PO SCH (08:22)
[2020-01-06] MEDS: LEVEMIR (INSULIN DETEMIR) 1 UNITS/0.01ML SC SCH ×2 (08:23→21:08)
[2020-01-06] MEDS: HumaLOG INSULIN (NovoLOG) PER UNIT SC SCH ×4 (08:23→21:00)
[2020-01-06] MEDS: FLUTICASONE PROP 0.05% NASAL SPRAY 16 GM (FLONASE) SCH (08:24)
[2020-01-06] MEDS: ADVAIR HFA 230/21MCG INHALER INH SCH ×2 (08:35→19:55)
[2020-01-06] MEDS: IPRATROPIUM HFA INHALER 12.9 GRAMS (ATROVENT HFA) INH SCH ×2 (08:36→19:55)
[2020-01-06] MEDS ORDERED: POTASSIUM CHLORIDE 10 MEQ SR TABLET PO ONE ×2 (09:15→14:00)
[2020-01-06] MEDS: FUROSEMIDE 100MG/10ML VIAL (J1940) IV SCH ×2 (09:32→17:28)
[2020-01-06] MEDS: KCL 10MEQ/100ML SWI (KRUN) 10 MEQ in IV 1 EA IV SCH ×2 (09:33→11:08)
--- NOTE | 2020-01-06 11:45 | SKHPN ---
[facility] Progress Note Date of Service/Time Date: Jan 06, 2020 Time: 10:45 Progress Note SUBJECTIVE: 74 YO male was admitted due to worsening shortness of breath and non productive cough x5 days ago. Today, the patient's shortness of breath and cough is much better. He can talk comfortably. Feels better overall. eating well. . OBJECTIVE: Vitals: see below PHYSICAL EXAMINATION: GENERAL APPEARANCE: NAD, sitting upright in a chair looking much better than yesterday with a nasal cannula on, calm, comfortable.Speaking in complete sentences with ocassional coughs. HEENT: NC/AT, Moist mucous membranes. CARDIOVASCULAR: RRR, no obvious m/r/g, +S1/S2 LUNGS: Clear to auscultation , Bilateral basal Fine Crackles heard,, no wheezing/ronchi ABDOMEN: obese, soft, nontender to palpation, +BS, non distended, No organo megaly. EXTREMITIES:+2 lower extremity edema noted up to the knee. Regular 2+ pulses felt in (radial and dorsalis pedis arteries)B/L. PSYCHIATRIC: normal mood/affect, AOx3 LABORATORY DATA: See below. MICROBIOLOGY: Please see below. ASSESSMENT: 74 yo M with COPD (3L home O2), HFpEF (LVEF 65%) who presents with shortness of breath and dyspnea on exertion found to have respiratory panel positive for Rhinovirus and elevated BNP, pulmonary edema concerning for congestive heart failure exacerbation vs COPD exacerbation. Hospital stay complicated with MARIAM - appears to be secondary to CHF complicated with Vanco toxicity. #SOB: Improved markedly. - multifactorial - COPD, CHF, rhinovirus - known history of chronic hypoxic respiratory failure/CHF - improving - wean O2, baseline 3L nasal cannula ( Home O2 )- Staff attempted to wean -Pt desaturated- Will continue to try. -Strict I/O, Fluid restriction 1500cc/day, daily weights -Respiratory panel positive for Rhinovirus -Aggressive pulmonary toilet: acapella, inhaled normal saline, Mucinex, Flonase for congestion -Procalcitonin -0.35. ( Low risk for Sepsis) Doxycycline discontinued. Continue Azithromycin for anti inflammatory effects and to ensure no superimposed bacterial pneumonia. #MARIAM - Cr -2.42- baseline Cr levels(1.1-1.20) - Nephrology - Catheterized the patient for a strict urine output and fall precautions. #COPD: -Continue home inhalers: Advair, Ellipta -Continue DuoNebs #IDDM2 - continue sliding scale + basal insulin #Hx PVD s/p stents: -Continue Plavix, ASA # HTN: -Continue Metoprolol, Isosorbide #CAD s/p multiple stents: -Continue Ranexa # HLD: -continue Rosuvastatin #gait dysfunction - PT/OT consult DVT ppx: heparin SC DISPOSITION: Pt still desaturates when tried to wean off MARIAM is still not resolved. Contact info for daughter who is aware of Pt status: Nyla - [phone] Allergies Coded Allergies: Cephalosporins (Verified Allergy, Intermediate, RASH, 06/21/19) RASH PER Penicillins (Verified Allergy, Intermediate, RASH, 06/21/19) clavulanic acid (Verified Allergy, Intermediate, RASH, 06/21/19) levofloxacin (Verified Allergy, Intermediate, RASH, 06/21/19) VS, I&O, 24H, Fishbone Vital Signs/I&O Vital Signs Date Time Temp Pulse Resp B/P (MAP) Pulse Ox O2 Delivery O2 Flow Rate FiO2 01/06/20 08:20 144/68 01/06/20 08:19 68 01/06/20 07:31 97.8 18 94 Nasal Cannula 6.0 01/02/20 20:00 40 I&O- Last 24 Hours up to 6 AM 01/06/20 06:00 Intake Total 1560 ml Output Total 3500 ml Balance -1940 ml Laboratory Data 24H LABS Laboratory Tests 2 01/05/20 15:00: Methicillin-Resist S.aureus DNA PCR NOT DETECTED 01/06/20 05:45: Nucleated Red Blood Cells % (auto) 0.3H, Anion Gap 6L, Glomerular Filtration R ate 28.0L, Calcium Level 8.0L CBC/BMP Laboratory Tests 01/06/20 05:45 Microbiology Microbiology 01/02/20 Blood Culture - Preliminary, Resulted No Growth after 72 hours. All specime... 01/02/20 Blood Culture - Preliminary, Resulted No Growth after 72 hours. All specime... 12/31/19 Respiratory Virus Panel (PCR) ([facility]) - Final, Complete Human Rhinovirus/Enterovirus 12/31/19 Blood Culture - Final, Complete Staphylococcus Hominis Ssp Janette 12/31/19 Blood Culture - Final, Complete NO GROWTH AFTER 5 DAYS GME ATTESTATION GME ATTESTATION My faculty preceptor for this patient encounter was physically present during the encounter and was fully available. All aspects of the patient interview, examination, medical decision making process, and medical care plan development were reviewed and approved by the faculty preceptor. The faculty preceptor is aware and concurs with the plan as stated in the body of this note and will attest to such by his/her cosignature. ATTENDING NOTE I, Flex Harding, have independently examined this patient and performed my own physical exam, as well as reviewed the documentation and edited where necessary. I have discussed in detail with the resident / student the findings and plan of treatment as documented by the resident / student and edited their note. I agree with their findings and treatment plan and have edited their documentation. I will continue to follow the patient during this hospital stay. - Clinically appears to be improving - Requirement of supplemental oxygen has been improving - Will taper down corticosteroids - Will discontinue doxycycline; c/w Azithromycin alone Date Seen The patient was seen on 01/07/20. Progress Note SUBJECTIVE: 74 YO male was admitted due to worsening shortness of breath and non productive cough x5 days ago. Today, the patient's shortness of breath and cough is much better. He can talk comfortably. Feels better overall. eating well. . OBJECTIVE: Vitals: see below PHYSICAL EXAMINATION: GENERAL APPEARANCE: NAD, sitting upright in a chair looking much better than yesterday with a nasal cannula on, calm, comfortable.Speaking in complete sentences with ocassional coughs. HEENT: NC/AT, Moist mucous membranes. CARDIOVASCULAR: RRR, no obvious m/r/g, +S1/S2 LUNGS: Clear to auscultation , Bilateral basal Fine Crackles heard,, no wheezing/ronchi ABDOMEN: obese, soft, nontender to palpation, +BS, non distended, No organomegaly. EXTREMITIES:+2 lower extremity edema noted up to the knee. Regular 2+ pulses felt in (radial and dorsalis pedis arteries)B/L. PSYCHIATRIC: normal mood/affect, AOx3 LABORATORY DATA: See below. MICROBIOLOGY: Please see below. ASSESSMENT: 74 yo M with COPD (3L home O2), HFpEF (LVEF 65%) who presents with shortness of breath and dyspnea on exertion found to have respiratory panel positive for Rhinovirus and elevated BNP, pulmonary edema concerning for congestive heart failure exacerbation vs COPD exacerbation. Hospital stay complicated with MARIAM - appears to be secondary to CHF complicated with Vanco toxicity. #SOB: Improved markedly. - multifactorial - COPD, CHF, rhinovirus - known history of chronic hypoxic respiratory failure/CHF - improving - wean O2, baseline 3L nasal cannula ( Home O2 )- Staff attempted to wean -Pt desaturated- Will continue to try. -Strict I/O, Fluid restriction 1500cc/day, daily weights -Respiratory panel positive for Rhinovirus -Aggressive pulmonary toilet: acapella, inhaled normal saline, Mucinex, Flonase for congestion -Procalcitonin -0.35. ( Low risk for Sepsis) Doxycycline discontinued. Continue Azithromycin for anti inflammatory effects and to ensure no superimposed bacterial pneumonia. #MARIAM - Cr -2.42- baseline Cr levels(1.1-1.20) - Nephrology - Catheterized the patient for a strict urine output and fall precautions. #COPD: -Continue home inhalers: Advair, Ellipta -Continue DuoNebs #IDDM2 - continue sliding scale + basal insulin #Hx PVD s/p stents: -Continue Plavix, ASA # HTN: -Continue Metoprolol, Isosorbide #CAD s/p multiple stents: -Continue Ranexa # HLD: -continue Rosuvastatin #gait dysfunction - PT/OT consult DVT ppx: heparin SC DISPOSITION: Pt still desaturates when tried to wean off MARIAM is still not resolved. Contact info for daughter who is aware of Pt status: Nyla - [phone] Julisa Mcnulty MD Jan 06, 2020 10:48 FLEX HARDING MD Jan 06, 2020 14:24
[2020-01-06] MEDS ORDERED: CEPACOL LOZENGE PO PRN (12:00)
[2020-01-06] MEDS: AZITHROMYCIN INJ 500 MG, VIAL MATE ADAPTER 1 EACH in D5W 250 ML IV SCH (12:35)
[2020-01-06] MEDS: methylPREDNISolone 40MG 1ML VIAL IV SCH (17:28)
[2020-01-06] MEDS: ROSUVASTATIN 10 MG TAB (CRESTOR) PO SCH (21:07)
[2020-01-07] MEDS: IPRATROPIUM 0.5MG/ALBUTEROL 2.5MG INH SOL UD 3ML (DUONEB) NEB SCH ×4 (01:38→19:34)
[2020-01-07] MEDS: SODIUM CHLORIDE 0.9% 3ML NEB SOLUTION FOR INHALATION INH SCH ×2 (01:38→08:01)
[2020-01-07] MEDS: SLF 3 ML SYR IV SCH ×3 (04:56→21:36)
[2020-01-07 05:23] VITALS: O2SAT 92
[2020-01-07] MEDS: methylPREDNISolone 40MG 1ML VIAL IV SCH ×2 (05:38→17:24)
[2020-01-07 06:00] VITALS: BP 120/53
[2020-01-07 07:07] LABS: HEMATOCRIT 28.3 % (42.0-52.0); MEAN CORPUSCULAR HEMOGLOBIN 24.1 pg (27.0-33.0); MEAN CORPUSCULAR HGB CONC 31.8 g/dl (32.0-36.5); MEAN CORPUSCULAR VOLUME 75.7 fl (80.0-96.0); PLATELET COUNT, AUTOMATED 200 10^3/uL (150-450); RED BLOOD COUNT 3.74 10^6/uL (4.30-6.10); WHITE BLOOD COUNT 11.9 10^3/uL (4.0-10.0)
[2020-01-07 07:21] LABS: CALCIUM LEVEL 7.9 MG/DL (8.8-10.2); CREATININE FOR GFR 2.43 MG/DL (0.70-1.30); GLOMERULAR FILTRATION RATE 27.8 (>42); POTASSIUM SERUM 3.6 MEQ/L (3.5-5.1)
[2020-01-07] MEDS: ADVAIR HFA 230/21MCG INHALER INH SCH ×2 (08:00→19:34)
[2020-01-07] MEDS: IPRATROPIUM HFA INHALER 12.9 GRAMS (ATROVENT HFA) INH SCH (08:01)
[2020-01-07] MEDS: ASPIRIN 325 MG TAB PO SCH (09:54)
[2020-01-07] MEDS: OMEPRAZOLE 20 MG CAP PO SCH ×2 (09:54→21:26)
[2020-01-07] MEDS: FUROSEMIDE 100MG/10ML VIAL (J1940) IV SCH ×2 (09:54→17:24)
[2020-01-07] MEDS: HEPARIN SOD (PORCINE) 5000UNITS/ML 1ML VIAL/SYRINGE SC SCH ×2 (09:54→21:26)
[2020-01-07] MEDS: CLOPIDOGREL 75 MG TAB PO SCH (09:54)
[2020-01-07] MEDS: guaiFENesin ER 600 MG TAB PO SCH ×2 (09:55→21:26)
[2020-01-07] MEDS: FLUoxetine 10 MG CAP PO SCH (09:55)
[2020-01-07] MEDS: RANOLAZINE 500 MG ER TAB PO SCH ×2 (09:55→21:35)
[2020-01-07] MEDS: LEVEMIR (INSULIN DETEMIR) 1 UNITS/0.01ML SC SCH ×2 (09:57→21:27)
[2020-01-07] MEDS: HumaLOG INSULIN (NovoLOG) PER UNIT SC SCH ×4 (09:58→21:00)
[2020-01-07] MEDS: ISOSORBIDE MON. (IMDUR) 60 MG XR TAB PO SCH (09:58)
[2020-01-07] MEDS: FLUTICASONE PROP 0.05% NASAL SPRAY 16 GM (FLONASE) SCH (09:59)
[2020-01-07] MEDS: METOPROLOL TART 12.5 MG PER 1/2 TAB PO SCH (09:59)
[2020-01-07] MEDS: ONDANSETRON 4 MG ORAL DISINTEGRATING TAB SL PRN (10:38)
[2020-01-07] MEDS ORDERED: ACETAMINOPHEN 500 MG TAB PO ONE (12:00)
[2020-01-07] MEDS ORDERED: ACETAMINOPHEN TAB 650MG DOSE (2X325MG) PO PRN (12:00)
[2020-01-07] MEDS: POTASSIUM CHLORIDE 10 MEQ SR TABLET PO SCH ×2 (13:22→21:26)
[2020-01-07] MEDS: AZITHROMYCIN INJ 500 MG, VIAL MATE ADAPTER 1 EACH in D5W 250 ML IV SCH (13:24)
[2020-01-07 14:00] VITALS: BP 95/65
--- NOTE | 2020-01-07 20:32 | IPNPDOC ---
Date Seen The patient was seen on 01/07/20. Progress Note SUBJECTIVE: 74 YO male was admitted due to worsening shortness of breath and non productive cough. Patient looks and feels better. SOB status is improving. He can talk comfortably. Feels better overall. eating well. The PT mentioned that while attempting to make the patient get off his chair, Mr Alberto desturated quickly to (77-78) on 3L O2, so he increased the O2 to 5L this morning at 8:00 am. The Pt also mentions numbness over his left knee when he changes his posture to get up from the bed or his chair with assistance which lasts for a few seconds. OBJECTIVE: Vitals: see below PHYSICAL EXAMINATION: GENERAL APPEARANCE: NAD, sitting upright in a chair looking much better than yesterday with a nasal cannula on, calm, comfortable. Speaking in complete sentences with ocassional coughs. HEENT: NC/AT, Moist mucous membranes. CARDIOVASCULAR: RRR, no obvious m/r/g, +S1/S2 LUNGS: Clear to auscultation , Bilateral basal Fine Crackles heard,, no wheezing/ronchi ABDOMEN: obese, soft, nontender to palpation, +BS, non distended, No organomegaly. EXTREMITIES:+2 lower extremity edema noted up to the knee. Regular 2+ pulses felt in (radial and dorsalis pedis arteries)B/L. MUSCULOSKELETAL: Pt has a left knee bruise - tender on palpation. No swelling or redness noted.popliteal pulses were felt (feeble volume). PSYCHIATRIC: normal mood/affect, AOx3 NEURO-Good motor strength in all 4 extremities, Sensations intact. No incontinence. LABORATORY DATA: See below. MICROBIOLOGY: Please see below. ASSESSMENT: 74 yo M with COPD (3L home O2), HFpEF (LVEF 65%) who presents with shortness of breath and dyspnea on exertion found to have respiratory panel positive for Rhinovirus and elevated BNP, pulmonary edema concerning for congestive heart failure exacerbation vs COPD exacerbation. Hospital stay complicated with MARIAM - appears to be secondary to CHF complicated with Vanco toxicity. #SOB: Improved markedly. Continues to desaturate on baseline O2 levels. - multifactorial - COPD, CHF, rhinovirus - known history of chronic hypoxic respiratory failure/CHF - improving - wean O2, baseline 3L nasal cannula ( Home O2 )- Staff attempted to wean-was on 3L -Pt desaturated- His O2 was increased to 5 L this morning. Will continue to titrate. -Strict I/O, Fluid restriction 1500cc/day, daily weights -Respiratory panel positive for Rhinovirus -Aggressive pulmonary toilet: acapella, inhaled normal saline, Mucinex, Flonase for congestion -Procalcitonin -0.35. ( Low risk for Sepsis) Doxycycline discontinued. Continue Azithromycin for anti inflammatory effects and to ensure no superimposed bacterial pneumonia. #MARIAM - Cr -2.42- baseline Cr levels(1.1-1.20) - Nephrology - Catheter removed. Pt is peeing fine - using a toilet seat. #COPD: -Continue home inhalers: Advair, Ellipta -Continue DuoNebs #IDDM2 - continue sliding scale + basal insulin #Hx PVD s/p stents: -Continue Plavix, ASA # HTN: -Continue Metoprolol, Isosorbide #CAD s/p multiple stents: -Continue Ranexa # HLD: -continue Rosuvastatin #gait dysfunction - PT/OT consult DVT ppx: heparin SC DISPOSITION: Pt still desaturates when tried to wean off MARIAM is still not resolved. Contact info for daughter who is aware of Pt status: Nyla - [phone] VS, I&O, 24H, [facility] Vital Signs/I&O Vital Signs Date Time Temp Pulse Resp B/P (MAP) Pulse Ox O2 Delivery O2 Flow Rate FiO2 01/07/20 09:59 68 130/67 01/07/20 06:00 97.4 18 96 Nasal Cannula 3.0 01/02/20 20:00 40 I&O- Last 24 Hours up to 6 AM 01/07/20 06:00 Intake Total 1475 ml Output Total 1850 ml Balance -375 ml Laboratory Data 24H LABS Laboratory Tests 2 01/07/20 06:21: Nucleated Red Blood Cells % (auto) 0.4H, Anion Gap 5L, Glomerular Filtration Rate 27.8L, Calcium Level 7.9L CBC/BMP Laboratory Tests 01/07/20 06:21 Microbiology Microbiology 01/02/20 Blood Culture - Preliminary, Resulted No Growth after 72 hours. All specime... 01/02/20 Blood Culture - Preliminary, Resulted No Growth after 72 hours. All specime... 12/31/19 Respiratory Virus Panel (PCR) ([facility]) - Final, Complete Human Rhinovirus/Enterovirus 12/31/19 Blood Culture - Final, Complete Staphylococcus Hominis Ssp Janette 12/31/19 Blood Culture - Final, Complete NO GROWTH AFTER 5 DAYS GME ATTESTATION GME ATTESTATION My faculty preceptor for this patient encounter was physically present during the encounter and was fully available. All aspects of the patient interview, examination, medical decision making process, and medical care plan development were reviewed and approved by the faculty preceptor. The faculty preceptor is aware and concurs with the plan as stated in the body of this note and will attest to such by his/her cosignature. ATTENDING NOTE I, Flex Harding, have independently examined this patient and performed my own physical exam, as well as reviewed the documentation and edited where necessary. I have discussed in detail with the resident / student the findings and plan of treatment as documented by the resident / student and edited their note. I agree with their findings and treatment plan and have edited their documentation. I will continue to follow the patient during this hospital stay. Julisa Mcnulty MD Jan 07, 2020 10:59 FLEX HARDING MD Jan 07, 2020 20:32
[2020-01-07] MEDS: ROSUVASTATIN 10 MG TAB (CRESTOR) PO SCH (21:35)
[2020-01-07 22:00] VITALS: BP 105/51
[2020-01-08] MEDS: IPRATROPIUM 0.5MG/ALBUTEROL 2.5MG INH SOL UD 3ML (DUONEB) NEB SCH ×3 (02:16→13:32)
[2020-01-08] MEDS: methylPREDNISolone 40MG 1ML VIAL IV SCH (05:52)
[2020-01-08] MEDS: SLF 3 ML SYR IV SCH ×2 (05:53→14:00)
[2020-01-08 06:00] VITALS: BP 123/86
[2020-01-08] MEDS: ADVAIR HFA 230/21MCG INHALER INH SCH (06:32)
[2020-01-08] MEDS: FLUTICASONE PROP 0.05% NASAL SPRAY 16 GM (FLONASE) SCH (08:36)
[2020-01-08] MEDS: FUROSEMIDE 100MG/10ML VIAL (J1940) IV SCH (08:37)
[2020-01-08] MEDS: LEVEMIR (INSULIN DETEMIR) 1 UNITS/0.01ML SC SCH (08:38)
[2020-01-08] MEDS: HEPARIN SOD (PORCINE) 5000UNITS/ML 1ML VIAL/SYRINGE SC SCH (08:38)
[2020-01-08] MEDS: HumaLOG INSULIN (NovoLOG) PER UNIT SC SCH ×2 (08:39→12:32)
[2020-01-08] MEDS: POTASSIUM CHLORIDE 10 MEQ SR TABLET PO SCH (08:39)
[2020-01-08] MEDS: METOPROLOL TART 12.5 MG PER 1/2 TAB PO SCH (08:40)
[2020-01-08] MEDS: FLUoxetine 10 MG CAP PO SCH (08:41)
[2020-01-08] MEDS: guaiFENesin ER 600 MG TAB PO SCH (08:41)
[2020-01-08] MEDS: RANOLAZINE 500 MG ER TAB PO SCH (08:41)
[2020-01-08] MEDS: OMEPRAZOLE 20 MG CAP PO SCH (08:42)
[2020-01-08] MEDS: ASPIRIN 325 MG TAB PO SCH (08:42)
[2020-01-08 08:43] VITALS: BP 123/86
[2020-01-08] MEDS: CLOPIDOGREL 75 MG TAB PO SCH (08:43)
[2020-01-08] MEDS: ISOSORBIDE MON. (IMDUR) 60 MG XR TAB PO SCH (08:43)
[2020-01-08] MEDS ORDERED: SPIRONOLACTONE 25 MG TAB PO SCH (09:00)
[2020-01-08] MEDS ORDERED: TORSEMIDE 20 MG TAB PO SCH (09:00)
--- NOTE | 2020-01-08 09:51 | IPNPDOC ---
Text Note Date of Service The patient was seen on 01/08/20. NOTE SUBJECTIVE: 74 YO male was admitted due to worsening shortness of breath and non productive cough. Today, the patient's shortness of breath and cough is much better. He can talk comfortably. Feels better overall. eating well. OBJECTIVE: Vitals: see below PHYSICAL EXAMINATION: GENERAL APPEARANCE: NAD, sitting upright in a chair looking much better than yesterday with a nasal cannula on 4 L O2 with O2 Sat of 95.He was calm, comfortable.Speaking in complete sentences with ocassional coughs. HEENT: NC/AT, Moist mucous membranes. CARDIOVASCULAR: RRR, no obvious m/r/g, +S1/S2 LUNGS: Clear to auscultation , Bilateral basal Fine Crackles heard,, no wheezing/ronchi ABDOMEN: obese, soft, nontender to palpation, +BS, non distended, No organomegaly. EXTREMITIES:+2 lower extremity edema noted up to the knee. Regular 2+ pulses felt in (radial and dorsalis pedis arteries)B/L. PSYCHIATRIC: normal mood/affect, AOx3 LABORATORY DATA: See below. MICROBIOLOGY: Please see below. ASSESSMENT: 74 yo M with COPD (3L home O2), HFpEF (LVEF 65%) who presents with shortness of breath and dyspnea on exertion found to have respiratory panel positive for Rhinovirus and elevated BNP, pulmonary edema concerning for congestive heart failure exacerbation vs COPD exacerbation. Hospital stay compl icated with MARIAM - appears to be secondary to CHF complicated with Vanco toxicity. #SOB: Improved markedly. - multifactorial - COPD, CHF, rhinovirus - known history of chronic hypoxic respiratory failure/CHF - improving - wean O2, baseline 3L nasal cannula ( Home O2 )- Staff attempted to wean -Pt desaturated- Will continue to try. -Strict I/O, Fluid restriction 1500cc/day, daily weights -Respiratory panel positive for Rhinovirus -Aggressive pulmonary toilet: acapella, inhaled normal saline, Mucinex, Flonase for congestion -Procalcitonin -0.35. ( Low risk for Sepsis) Doxycycline discontinued. Continue Azithromycin for anti inflammatory effects and to ensure no superimposed bacterial pneumonia. #MARIAM - Cr -2.42- baseline Cr levels(1.1-1.20) - Nephrology - Catheterized the patient for a strict urine output and fall precautions. #COPD: -Continue home inhalers: Advair, Ellipta -Continue DuoNebs #IDDM2 - continue sliding scale + basal insulin #Hx PVD s/p stents: -Continue Plavix, ASA # HTN: -Continue Metoprolol, Isosorbide #CAD s/p multiple stents: -Continue Ranexa # HLD: -continue Rosuvastatin #gait dysfunction - PT/OT consult DVT ppx: heparin SC DISPOSITION: Pt still desaturates when tried to wean off MARIAM is still not resolved. Contact info for daughter who is aware of Pt status: Nyla - [phone] VS,Fishbone, I+O VS, Fishbone, I+O Vital Signs Date Time Temp Pulse Resp B/P (MAP) Pulse Ox O2 Delivery O2 Flow Rate FiO2 01/08/20 08:43 123/86 01/08/20 08:40 57 01/08/20 06:00 97.8 18 96 Nasal Cannula 3.0 01/02/20 20:00 40 I&O- Last 24 Hours up to 6 AM 01/08/20 06:00 Intake Total 240 ml Output Total 2100 ml Balance -1860 ml GME ATTESTATION GME ATTESTATION My faculty preceptor for this patient encounter was physically present during the encounter and was fully available. All aspects of the patient interview, exa mination, medical decision making process, and medical care plan development were reviewed and approved by the faculty preceptor. The faculty preceptor is aware and concurs with the plan as stated in the body of this note and will attest to such by his/her cosignature. ATTENDING NOTE Patient independently seen and examined. Agree with resident's note. Julisa Mcnulty MD Jan 08, 2020 09:51 NAFISA BALL MD Jan 27, 2020 11:33
[2020-01-08] MEDS ORDERED: TORS20TA2 PO (11:58)
[2020-01-08] MEDS ORDERED: ALDA25TA2 PO (11:58)
[2020-01-08] MEDS ORDERED: PRED20TA PO (11:58)
[2020-01-08 12:50] LABS: BASO % 0.1 % (0.0-1.0); HEMATOCRIT 33.5 % (42.0-52.0); HEMOGLOBIN 10.5 g/dl (13.5-17.5); LYMPH # 0.4 10^3/uL (1.5-5.0); LYMPH % 3.8 % (24.0-44.0); MEAN CORPUSCULAR HEMOGLOBIN 24.1 pg (27.0-33.0); MEAN CORPUSCULAR HGB CONC 31.3 g/dl (32.0-36.5); MONO # 0.8 10^3/uL (0.0-0.8); MONO % 7.2 % (0.0-5.0); NEUTROPHILS # 9.7 10^3/uL (1.5-8.5); NEUTROPHILS % 87.5 % (36.0-66.0); PLATELET COUNT, AUTOMATED 230 10^3/uL (150-450); RED BLOOD COUNT 4.35 10^6/uL (4.30-6.10)
[2020-01-08] MEDS: AZITHROMYCIN INJ 500 MG, VIAL MATE ADAPTER 1 EACH in D5W 250 ML IV SCH (13:00)
[2020-01-08 13:03] LABS: CALCIUM LEVEL 8.3 MG/DL (8.8-10.2); CREATININE FOR GFR 2.19 MG/DL (0.70-1.30); GLOMERULAR FILTRATION RATE 31.4 (>42); MAGNESIUM LEVEL 2.5 MG/DL (1.8-2.4); POTASSIUM SERUM 3.7 MEQ/L (3.5-5.1)
--- NOTE | 2020-01-08 14:52 | DS.PDOC ---
Discharge Summary General Date of Admission Dec 31, 2019 at 16:37 Date of Discharge 01/08/2020 Primary Care Physician: LYNNE CUMMINGS MD [facility] Attending Physician: FLEX JOSEPH MD Discharge Summary PROCEDURES PERFORMED DURING STAY: [None]. ADMITTING DIAGNOSES/DISCHARGE DIAGNOSES: 1.CHF exacerbation COMPLICATIONS/CHIEF COMPLAINT: Shortness of breath and Cough HISTORY OF PRESENT ILLNESS: Artemio Alberto is a 74 YO M with COPD (3L home O2), dCHF (LVEF 65%) who presents with shortness of breath and dyspnea on exertion found to have respiratory panel positive for Rhinovirus and elevated BNP, pulmonary edema concerning for congestive heart failure exacerbation vs COPD exacerbation. HOSPITAL COURSE: The patient on admission, presented with Shortness of breath: likely due to decompensated 2/2 Diastolic Congestive heart failure. - IV diuretics were adjusted to PO diuretics on discharge; continued to remain negative fluid balanced - Oxygenation had improved to baseline -Pt put on Strict I/O, Fluid restriction 1500cc/day, daily weights -WBC improved -Respiratory panel positive for Rhinovirus -Aggressive pulmonary toilet : acapella, inhaled normal saline, Mucinex, Flonase for congestion COPD with superimposed PNA: -Procalcitonin was 0.35 for which he was kept on Azithromycin Pt is continously improving and ready to be sent to the assisted to continue PT. -Continue home inhalers: Advair, Ellipta dose Increased For, IDDM2:-SSI with hypoglycemic protocol followed. -Lantus 24U daily, 50U QHS For Hx PVD s/p stents: - Plavix continued, ASA DISCHARGE MEDICATIONS: Please see below. ALLERGIES: Please see below. PHYSICAL EXAMINATION ON DISCHARGE: VITAL SIGNS: Please see below. GENERAL:The patient looks comfortable with his vent mask on, HEENT: AT/NC, EOMI NECK: No thyromegaly, No LAD CARDIOVASCULAR EXAMINATION: RRR, Normal hearty sounds. no murmurs RESPIRATORY EXAMINATION:Fine bilateral basilar crackles heard, No wheezing , ABDOMINAL EXAMINATION:NT, ND, No organomegaly NEUROLOGICAL EXAMINATION: Sensations intact, Good motor strength PSYCHIATRIC EXAMINATION: AOx3, Affect normal LABORATORY DATA: Please see below. IMAGING: Findings compatible with congestive heart failure, worsened compared to 10/20/2019. Cardiomegaly. Small bilateral pleural effusions. Pulmonary findings consistent with pulmonary vascular congestion, pulmonary edema, and mild atelectasis. Pulmonary infection is not excluded PROGNOSIS: Poor ACTIVITY: As tolerated DIET: As tolerated DISPOSITION: Pt's breathing has improved markedly, frequency of cough is also decreased. He is able to maintain good oxygen sats on 4L Oxygen Will be transitioned to [facility] for continued rehabilitation - Advised to remain compliant with treatment plan and medications - Return to the ER if you experience any problems DISCHARGE CONDITION: [Stable]. TIME SPENT ON DISCHARGE: 35 minutes. Vital Signs/I&Os Vital Signs Date Time Temp Pulse Resp B/P (MAP) Pulse Ox O2 Delivery O2 Flow Rate FiO2 01/08/20 09:00 3.0 01/08/20 08:43 123/86 01/08/20 08:40 57 01/08/20 06:00 97.8 18 96 Nasal Cannula 01/02/20 20:00 40 I&O- Last 24 Hours up to 6 AM 01/08/20 06:00 Intake Total 240 ml Output Total 2100 ml Balance -1860 ml Laboratory Data Labs 24H Laboratory Tests 2 01/08/20 12:24: Immature Granulocyte % (Auto) 1.4, Neutrophils (%) (Auto) 87.5H, Lymphocytes (%) (Auto) 3.8L, Monocytes (%) (Auto) 7.2H, Eosinophils (%) (Auto) 0.0, Basophils (%) (Auto) 0.1, Neutrophils # (Auto) 9.7H, Lymphocytes # (Auto) 0.4L, Monocytes # (Auto) 0.8, Eosinophils # (Auto) 0.0, Basophils # (Auto) 0.0, Nucleated Red Blood Cells % (auto) 0.4H, Anion Gap 7L, Glomerular Filtration Rate 31.4L, Calcium Level 8.3L, Magnesium Level 2.5H CBC/BMP Laboratory Tests 01/08/20 12:24 Microbiology Microbiology 01/08/20 Respiratory Virus Panel (PCR) ([facility]) - Final, Complete Human Rhinovirus/Enterovirus 01/02/20 Blood Culture - Final, Complete NO GROWTH AFTER 5 DAYS 01/02/20 Blood Culture - Final, Complete NO GROWTH AFTER 5 DAYS 12/31/19 Respiratory Virus Panel (PCR) ([facility]) - Final, Complete Human Rhinovirus/Enterovirus 12/31/19 Blood Culture - Final, Complete Staphylococcus Hominis Ssp Janette 12/31/19 Blood Culture - Final, Complete NO GROWTH AFTER 5 DAYS Discharge Medications Scheduled Aspirin (Aspirin) 325 Mg Tab, 325 MG PO DAILY, (Reported) Clopidogrel Bisulfate (Clopidogrel) 75 Mg Tab, 75 MG PO DAILY, (Reported) Fluoxetine Hcl (Fluoxetine HCl) 10 Mg Capsule, 30 MG PO DAILY, (Reported) Fluticasone Propionate (Fluticasone Propionate) 16 Gm Jackson.susp, 1 SPRAY NA DAILY, (Reported) Insulin Aspart (Novolog Flexpen) 100 Unit/Ml Inj, 1 DOSE SC ACHS, (Reported) PER SLIDING SCALE Insulin Glargine,Hum.rec.anlog (Toujeo Solostar) 300 Unit/Ml Inj, 30 UNIT SC DAILY, (Reported) Insulin Glargine,Hum.rec.anlog (Toujeo Solostar) 300 Unit/1 Ml Insuln.pen, 60 UNIT SC QHS, (Reported) Isosorbide Mononitrate (Isosorbide Mononitrate ER) 60 Mg Tab.er.24h, DAILY, (Reported) Lisinopril (Lisinopril) 2.5 Mg Tab, 2.5 MG PO DAILY, (Reported) Magnesium Oxide (Magnesium Oxide) 400 Mg Tab, 400 MG PO DAILY, (Reported) Metoprolol Tartrate (Metoprolol Tartrate) 25 Mg Tab, 12.5 MG PO QHS, (Reported) Omeprazole (Omeprazole) 20 Mg Tab, 20 MG PO BID, (Reported) Potassium Chloride (Potassium Chloride) 20 Meq Tablet.er, 20 MEQ PO DAILY, (Reported) Prednisone (Prednisone) 20 Mg Tablet, 20 MG PO DAILY Ranolazine (Ranexa) 1,000 Mg Tab.er.12h, 1,000 MG PO BID, (Reported) Rosuvastatin Calcium (Rosuvastatin Calcium) 40 Mg Tab, 40 MG PO QHS, (Reported) Salmeterol/Fluticasone (Advair 500-50 Diskus) 28 Puff/Inhaler Aerp, 1 PUFF INH BID, (Reported) Spironolactone (Aldactone) 25 Mg Tablet, 25 MG PO BID@09,17 Torsemide (Torsemide) 20 Mg Tablet, 40 MG PO BID@09,17 Umeclidinium [place] (Incruse Ellipta) 62.5 Mcg/Inh Inh, 1 PUFF INH DAILY, (Reported) Scheduled PRN Acetaminophen (Mapap) 500 Mg Tablet, 1,000 MG PO Q6H PRN for PAIN, (Reported) Albuterol Sulf (Albuterol Sulfate) 2.5 Mg/3 Ml Vial.neb, 2.5 MG INH Q4HP PRN for SHORTNESS OF BREATH, (Reported) Albuterol Sulfate (Ventolin Hfa) 108 Mcg/Act Aer, 2 PUFF INH Q4H PRN for SHORTNESS OF BREATH, (Reported) Nitroglycerin (Nitrostat) 0.4 Mg Subl, 0.4 MG SL NITRO PRN for CHEST PAIN, (Reported) Allergies Coded Allergies: Cephalosporins (Verified Allergy, Intermediate, RASH, 06/21/19) RASH PER Penicillins (Verified Allergy, Intermediate, RASH, 06/21/19) clavulanic acid (Verified Allergy, Intermediate, RASH, 06/21/19) levofloxacin (Verified Allergy, Intermediate, RASH, 06/21/19) GME ATTESTATION GME ATTESTATION My faculty preceptor for this patient encounter was physically present during the encounter and was fully available. All aspects of the patient interview, examination, medical decision making process, and medical care plan development were reviewed and approved by the faculty preceptor. The faculty preceptor is aware and concurs with the plan as stated in the body of this note and will attest to such by his/her cosignature. ATTENDING NOTE I, Flex Joseph, have independently examined this patient and performed my own physical exam, as well as reviewed the documentation and edited where necessary. I have discussed in detail with the resident / student the findings and plan of treatment as documented by the resident / student and edited their note. I agree with their findings and treatment plan and have edited their documentation. I will continue to follow the patient during this hospital stay. Time spent on discharge 35 minutes Julisa Mcnluty MD Jan 08, 2020 14:25 FLEX JOSEPH MD Jan 08, 2020 20:12
--- NOTE | 2020-01-09 08:01 | REP ---
PORTABLE CHEST X-RAY: SITTING AP VIEW HISTORY: Shortness of breath. COMPARISON: Chest x-ray 12/31/2019. FINDINGS: Monitoring electrodes overlie the chest. The heart is enlarged, unchanged. There is increased density in the right infrahilar region consistent with infiltrate. This is more prominent than on the 12/31/2019 study. There is a small infiltrate suspected in the left base as well. Pleural angles are sharp. Pulmonary vasculature is not increased. IMPRESSION: Cardiomegaly. Right lower lobe infiltrate. Subtle infiltrate suspected on the left as well. MTDD
[2020-01-09] MEDS ORDERED: predniSONE 20 MG TAB PO SCH (09:00)
--- NOTE | 2020-01-12 14:50 | CR ---
DATE OF CONSULTATION: 01/04/2020 CONSULTATION REQUESTED BY: Sage Pratt M.D. DATE OF CONSULT: January 04, 2020. REASON FOR CONSULTATION: Acute kidney injury and shortness of breath. HISTORY OF PRESENT ILLNESS: Mr. Alberto is a 74-year-old gentleman with multiple chronic medical problems including a history of COPD, diastolic congestive heart failure, obstructive sleep apnea, coronary artery disease, morbid obesity and peripheral vascular disease. He was admitted to [facility] on 12/31/2019 with shortness of breath. He was given some I.V. Lasix and his BUN and creatinine increased due to which his diuretic has been stopped. He was also noticed to have a positive blood culture and was treated with Vancomycin, however, blood culture was felt to be contaminant and Vancomycin has been stopped. His kidney function has worsened and a nephrology consultation was requested this morning. Patient is seen in progressive care unit. PAST MEDICAL HISTORY: Significant for: 1. History of COPD on 3 liters of oxygen at home. 2. Diastolic congestive heart failure with ejection fraction of 65%. 3. Obstructive sleep apnea on CPAP. 4. Hypertension. 5. IDDM. 6. History of coronary artery disease; status post multiple stents. 7. History of peripheral vascular disease; status post left lower extremity stent. 8. Morbid obesity. 9. Depression. 10. Gastroesophageal reflux disease. 11. Hyperlipidemia. PAST SURGICAL HISTORY: Significant for: 1. Cholecystectomy. 2. Angioplasty and coronary stents and left lower extremity stent. MEDICATIONS: Home medications include: - aspirin 325 mg daily - Plavix 75 mg daily - fluoxetine 30 mg daily - furosemide 40 mg b.i.d. - Novolog and Toujeo Insulin - Isosorbide 60 mg daily - Lisinopril 2.5 mg daily - magnesium Oxide 400 mg daily - metoprolol 12.5 mg daily - omeprazole 20 mg b.i.d. - potassium chloride 20 mEq daily - Ranexa 1,000 mg b.i.d. - Crestor 40 mg daily - Advair Diskus 500/50 one inhalation b.i.d. - spironolactone 12.5 mg every two days - Incruse Ellipta 62.5 mcg daily - He also uses Nitroglycerin and Albuterol as needed. ALLERGIES: Patient reports allergy to cephalosporins. There is also allergy to penicillin, Levofloxacin and Clavulanic acid. PERSONAL AND SOCIAL HISTORY: Patient is . He is retired from [employer]. He is a former smoker. Denies any alcohol or drug use. FAMILY HISTORY: Noncontributory. REVIEW OF SYSTEMS: Patient is quite short of breath and not feeling well at present. No fever or chills. Ears, nose and throat are unremarkable. Cardiovascular system is significant for shortness of breath on minimal exertion. Denies any chest pain. Respiratory system is significant for COPD and he is obviously wheezing at present. There is no history of hemoptysis. GI system is negative for nausea, vomiting or diarrhea. system is significant for abnormal urinary stream. He refused to get Mei catheter placed. Skin has no rash or ulcers. Musculoskeletal system is significant for chronic degenerative arthritis. Neurological system negative for seizure or stroke. Psychosocial system is significant for depression. Endocrine system is negative for any thyroid problems. He does have history of diabetes. Hematological system is negative for usp anticoagulation. PHYSICAL EXAMINATION: The patient is in some respiratory distress, not feeling well at present. Temperature 96.9 degrees Fahrenheit, heart rate 68 per minute, respiratory rate 24 per minute, blood pressure 94/50 mmHg and oxygen saturation 97% on 6 liters of oxygen. His head is atraumatic. Pupils are equal and reactive to light. Eyes are anicteric. Oral mucosa is somewhat dry. Heart sounds are somewhat distant, but regular. Lungs have generalized wheezing and crackles bilaterally. Abdomen is soft, obese, nontender, and bowel sounds are normal. Extremities without any cyanosis or clubbing. Neurologically, he is awake and without a focal deficit. LABORATORY DATA: WBC 11.4, hemoglobin 9.7, hematocrit 32, platelets 194,000. Sodium 131, potassium 4.1, CO2 23, BUN 47, creatinine 2.23, glucose 97 and calcium 7.4. Blood gas today showed pH 7.34, pCO2 39 and pO2 only 34. Bicarb level 20. IMAGING STUDIES: Chest x-ray done on admission was consistent with congestive heart failure and COPD. PROBLEMS: 1. Acute renal failure superimposed on chronic kidney disease: His chronic kidney disease seems to be mild. His creatinine was 1.18 on admission. He is clinically in congestive heart failure and probably that is contributing to his acute kidney injury. I am going to try to diurese him. His pro-BNP level is 11,322 today, while it was 8,794 on the . Clinically he looks quite decompensated. He will be given Lasix 100 mg intravenously now and then 80 mg twice a day. His intake and output needs to be monitored closely. The patient has declined Mei catheter placement. 2. Hyponatremia: Most likely related to decompensated congestive heart failure and likely to improve with diuresis. Electrolytes should be checked again tomorrow. 3. COPD with acute exacerbation: He seems to have significant COPD exacerbation in addition to congestive heart failure. Solu-Medrol 60 mg every 6 hours is being ordered. 4. Anemia: Most likely this is chronic and will need to be monitored. No urgent intervention is needed at present. Thank you for involving me in the care of Mr. Alberto. I will follow him along with you. RANDY
--- NOTE | 2020-01-14 18:01 | REP ---
LEFT KNEE SERIES: 4-VIEWS HISTORY: Knee pain. Upright images requested. However, the patient was unable to tolerate standing images. FINDINGS: Four views of the left knee are presented. There is a small benign osteochondroma projecting posteriorly and laterally from the distal femoral metaphysis. Vascular calcification is seen and there is a stent noted in place in the distal superficial femoral artery. The osteoarthritic spurring involving the medial compartment of the knee mild in degree, patellofemoral joint space narrowing, and inferior patellar spurring is seen. No evidence of joint effusion. Patient was apparently unable to tolerate a sunrise projection as well. IMPRESSION: There is diffuse osteopenia. A small benign osteochondroma is seen in the distal femur. Osteoarthritic spurring is seen in the medial and patellofemoral compartments. Vascular calcification is noted. MTDD
--- NOTE | 2020-01-27 08:25 | IPN ---
DATE: 01/06/2020 SUBJECTIVE: Mr. Alberto is seen this morning at his bedside. He is sitting in the chair today and feels much better. He can breathe much better and can also have a conversation although his voice is somewhat hoarse. His oxygen requirement is down to 4 liters today. He denies any nausea or vomiting. PHYSICAL EXAMINATION: VITAL SIGNS: Temperature 98.3 degrees Fahrenheit, heart rate is 64 per minute, respiratory rate 18 per minute. Blood pressure 132/59 mmHg and oxygen saturation 94% on 4 liters of oxygen. Intake and output records from yesterday show a total intake of 960 and output 3700. To my surprise his weight has not changed at all. NECK: Supple and JVD not abnormally elevated, sitting upright in the chair. LUNGS: His lungs sound much better today and wheezing and crackles have improved significantly. HEART: Regular and somewhat distant. ABDOMEN: Soft and nontender. Bowel sounds are normal. EXTREMITIES: Without any cyanosis or clubbing. Lower extremity edema is trace. LABORATORY DATA: Todays labs showed WBC count of 12.6, hemoglobin 9.9 and hematocrit 31.8. Platelets are 212,000. Sodium 130, potassium 3.2, CO2 28, BUN 52 and creatinine 2.42. Glucose 114 and calcium is 8.0. PROBLEMS: 1. Acute on chronic congestive heart failure. His volume status has improved significantly and I am going to cut down his Lasix dose to 60 mg b.i.d. 2. COPD. His COPD also is much better and he remains on steroids and Azithromycin for now. He is now down to 4 liters of oxygen. 3. Hypokalemia, this is related to diuresis and the patient has already received one dose of 40 mEq of potassium chloride this morning. We will give him one more dose this evening and recheck his electrolytes tomorrow. 4. Hyponatremia, this is related to congestive heart failure and acute kidney injury. We will continue to diurese him for now and monitor his electrolytes. 5. Acute renal failure superimposed on chronic kidney disease. No significant change but did have slight increase in BUN and creatinine which is expected with aggressive diuresis. 6. Anemia, his anemia is stable at this point and does not need any urgent intervention. HEALTH SYSTEMReji
--- NOTE | 2020-01-27 08:29 | IPN ---
DATE: 01/07/2020 SUBJECTIVE: Mr. Alberto is seen this morning at this bedside. He is feeling much better and his dyspnea has improved. He is still short of breath and remains on 3 liters of oxygen. He has been diuresing very well. PHYSICAL EXAMINATION: VITAL SIGNS: Temperature 97.4 degrees Fahrenheit, heart rate is 68 per minute and respiratory rate is 18 per minute. Oxygen saturation 90% on 3 liters of oxygen. HEENT: Head is atraumatic. NECK: Supple. JVD is not abnormally elevated sitting upright. LUNGS: Bilateral basilar rales. HEART: Regular. ABDOMEN: Soft and nontender. Bowel sounds are normal. EXTREMITIES: Without any cyanosis or clubbing. Lower extremity edema is still 1+. NEUROLOGIC: He is awake, alert and oriented x3. LABORATORY DATA: Todays labs shows a sodium of 133, potassium 3.6, chloride 99, CO2 29, BUN 55 and creatinine 2.43. Glucose 130 and calcium 7.9. WBC count is 11.9, hemoglobin is 9.0 and hematocrit 28.3. PROBLEMS: 1. Acute on chronic congestive heart failure. Volume status is improving and we will continue to diurese him. He is receiving Lasix 60 mg twice a day now instead of 80 mg. 2. COPD exacerbation. He is feeling much better and Solu-Medrol has already been stopped by the Hospitalist service. His wheezing and cough are still there but much improved. 3. Acute renal failure superimposed on chronic kidney disease. No change in kidney function over the last 24 hours. We will continue to diurese him and monitor his kidney function on a daily basis. 4. Hyponatremia, slightly improved sodium up to 133 today. Electrolytes will be checked again tomorrow. We will continue with diuresis for now. 5. Hypokalemia. Potassium level has improved to 3.6 today. I am going to put him on oral potassium chloride 20 mEq twice a day. Once we stop his IV Lasix then we can consider cutting down on the potassium supplement. MTDD
--- NOTE | 2020-01-27 08:38 | IPN ---
DATE: 01/05/2020 SUBJECTIVE: Mr. Alberto is seen this morning at his bedside. I saw him yesterday for initial consultation and he was very short of breath. He was put on steroids and intravenous Lasix due to congestive heart failure and COPD exacerbation. He is feeling better but still tachypneic and has a productive cough. He denies any hemoptysis. He has no vomiting or diarrhea at present. PHYSICAL EXAMINATION: VITAL SIGNS: Temperature 98.7 degrees Fahrenheit, heart rate is 62 per minute and respiratory rate is 18 per minute. Blood pressure is 131/59 mmHg and oxygen saturation 90% on 6 liters of oxygen. Input and output records from yesterday showed total output 2024 while input recorded only 480 mL. His weight is essentially unchanged since yesterday. HEENT: Head is atraumatic. NECK: Neck veins are difficult to assess but seem to be elevated. HEART: His heart sounds are distant but regular. LUNGS: Bilateral wheezing and rhonchi. ABDOMEN: Soft and nontender. Bowel sounds are normal. EXTREMITIES: Without any cyanosis or clubbing. There is edema on his lower extremities. NEUROLOGIC: He is awake, alert and oriented x3. LABORATORY DATA: Todays labs showed a WBC count of 9.3, hemoglobin 10.0 and hematocrit 32.1, platelets are 204,000. Sodium 132, potassium 4.2, CO2 25, BUN 48 and creatinine 2.30. Glucose 199, calcium 7.6. PROBLEMS: 1. Congestive heart failure, acute on chronic, diastolic. He is diuresing very well and will continue with current dose of Lasix 80 mg b.i.d. intravenously. He has a negative fluid balance. 2. COPD exacerbation, patient is on Solu-Medrol and I have asked his primary care physician to add antibiotic coverage also for possible COPD exacerbation. I feel this is most likely a combination of congestive heart failure and COPD. 3. Acute kidney injury superimposed on chronic kidney disease. Kidney function essentially unchanged. We are diuresing him at present aggressively and will continue the same. 4. Hyponatremia. Sodium levels slightly low but stable. No intervention is needed and we anticipate improvement as he is getting diuresed. MTDD
--- NOTE | 2020-01-27 12:21 | IPN ---
DATE: 01/08/2020 SUBJECTIVE: Patient's breathing has improved. The patient states that he is feeling much better and agrees to rehab after discharge. VITAL SIGNS: Temperature 98.8, pulse 57, respiratory rate 18, blood pressure 123/86, pulse oximetry 96% on 3 liters nasal cannula. GENERAL: Patient is alert, sitting up comfortably in bed. Appears comfortable. Speaking in complete sentence. HEENT: Normocephalic, atraumatic. Moist mucous membranes. CARDIOVASCULAR: Regular rate and rhythm. No murmurs, rubs, or gallops. LUNGS: Bilateral basal fine crackles. No wheezing or rhonchi. Breathing does not appear labored. EXTREMITIES: Pitting 2+ edema noted bilaterally, improved. LABORATORY DATA: No laboratories today. ASSESSMENT AND PLAN: A 74-year-old male who was admitted with possible pneumonia, chronic obstructive pulmonary disease (COPD) exacerbation, and acute on chronic congestive heart failure exacerbation with acute kidney injury complicating medical care during this admission. He has diuresed well with intravenous (IV) Lasix. We will switch on to 40 mg torsemide twice a day and 25 mg spironolactone twice a day. He can be discharged on these oral medications and followup outpatient in the office. He can also continue the potassium supplementation for now, and his potassium should be rechecked after discharge to monitor the need for this, since we are starting him on spironolactone which is potassium sparing. Thank you for involving us in the care of this patient. RANDY
--- NOTE | 2020-01-27 14:14 | ECGEPIP ---
[facility] - ED Test Date: 2019-12-31 Pat Name: CARTER DE LA ROSA Department: Room: [place] [address] Gender: Male Composite Laminator: SARBJIT : 1945 Requested By: José Miguel Hatfield Order Number: [id number] Reading MD: Malka Greenwood Measurements Intervals [place] Rate: 70 P: 54 MO: 198 QRS: 116 QRSD: 97 T: -16 QT: 447 QTc: 484 Interpretive Statements SINUS RHYTHM INCOMPLETE RIGHT BUNDLE BRANCH BLOCK POSSIBLE RIGHT VENTRICULAR HYPERTROPHY POSSIBLE ANTERIOR MYOCARDIAL INFARCTION, OF INDETERMINATE AGE MODERATE T-WAVE ABNORMALITY, CONSIDER LATERAL ISCHEMIA ABNORMAL ECG SEE SCANNED DOWNTIME REPORT
== END 2020-01-08 13:55 | DRG 291 ==
LOC: M ED 14:38 → EDBD 14:38 → M ED INP 16:37 → M PCU 19:14 → M MS5PR 01-06 20:10
PROVIDERS: ADMIT Internal Medicine; ATTEND Internal Medicine
DX: I11.0 Hypertensive heart disease with heart failure (principal); J18.9 Pneumonia, unspecified organism; Z68.41 Body mass index [BMI] 40.0-44.9, adult; J44.1 Chronic obstructive pulmonary disease with (acute) exacerbation; J96.11 Chronic respiratory failure with hypoxia; N17.9 Acute kidney failure, unspecified; E87.1 Hypo-osmolality and hyponatremia; J44.0 Chronic obstructive pulmonary disease with (acute) lower respiratory infection; I50.33 Acute on chronic diastolic (congestive) heart failure; G47.33 Obstructive sleep apnea (adult) (pediatric); E11.51 Type 2 diabetes mellitus with diabetic peripheral angiopathy without gangrene; I25.10 Atherosclerotic heart disease of native coronary artery without angina pectoris; E11.649 Type 2 diabetes mellitus with hypoglycemia without coma; R26.89 Other abnormalities of gait and mobility; K21.9 Gastro-esophageal reflux disease without esophagitis; D64.9 Anemia, unspecified; B97.89 Other viral agents as the cause of diseases classified elsewhere; E66.01 Morbid (severe) obesity due to excess calories; Z95.5 Presence of coronary angioplasty implant and graft; Z95.820 Peripheral vascular angioplasty status with implants and grafts; Z90.49 Acquired absence of other specified parts of digestive tract; Z87.891 Personal history of nicotine dependence; Z99.81 Dependence on supplemental oxygen; Z79.02 Long term (current) use of antithrombotics/antiplatelets; Z79.82 Long term (current) use of aspirin; Z79.4 Long term (current) use of insulin; Z79.899 Other long term (current) drug therapy; Z88.0 Allergy status to penicillin; Z88.1 Allergy status to other antibiotic agents; Z88.8 Allergy status to other drugs, medicaments and biological substances; Z11.59 Encounter for screening for other viral diseases

== ENCOUNTER → 2020-01-22 | Outpatient (REF) ==
[~2020-01-22] MED LIST changes: +ASPI81TA26 PO; +ELIQ5TAB PO; +ISOS30TA4 PO; +MAPA500T2 PO; +POTA1TAB14 PO; +TORS20TA2 PO
[2020-01-22 08:48] LABS: CALCIUM LEVEL 8.8 MG/DL (8.8-10.2); CREATININE FOR GFR 2.31 MG/DL (0.70-1.30); GLOMERULAR FILTRATION RATE 29.5 (>42); MAGNESIUM LEVEL 2.3 MG/DL (1.8-2.4); POTASSIUM SERUM 4.1 MEQ/L (3.5-5.1)
== END ==
LOC: SKLAB5 07:20
PROVIDERS: ATTEND Internal Medicine
DX: J44.9 Chronic obstructive pulmonary disease, unspecified (principal); I50.9 Heart failure, unspecified

== ENCOUNTER 2020-02-01 11:44 | Inpatient (IN) | payer MEDICARE ==
[~2020-02-01] VITALS: Ht 172.7 cm; Wt 114.7 kg
[~2020-02-01 11:44] MED LIST changes: -ASPI81TA26 PO; -ELIQ5TAB PO; -ISOS30TA4 PO
[2020-02-01 12:23] LABS: VENOUS BASE EXCESS 1.7 (-2.0-2.0); VENOUS HCO3 27.8 MEQ/L (23.0-27.0); VENOUS PARTIAL PRESSURE CO2 49.4 mmHg (38.0-50.0); VENOUS PARTIAL PRESSURE O2 31.3 mmHg (30.0-50.0); VENOUS PH 7.368 UNITS (7.330-7.430); VENOUS TOTAL CO2 29.3 MEQ/L (24.0-28.0)
[2020-02-01 12:27] LABS: HEMATOCRIT 38.6 % (42.0-52.0); HEMOGLOBIN 12.7 g/dl (13.5-17.5); MEAN CORPUSCULAR HGB CONC 32.9 g/dl (32.0-36.5); MEAN CORPUSCULAR VOLUME 79.1 fl (80.0-96.0); PLATELET COUNT, AUTOMATED 338 10^3/uL (150-450); RED BLOOD COUNT 4.88 10^6/uL (4.30-6.10); WHITE BLOOD COUNT 12.4 10^3/uL (4.0-10.0)
[2020-02-01 12:37] LABS: INR 0.95; PROTHROMBIN TIME 12.9 SECONDS (12.5-14.3)
--- NOTE | 2020-02-01 12:47 | REPVR ---
PROCEDURE INFORMATION: Exam: XR Chest, 1 View Exam date and time: 02/01/2020 12:09 PM Age: 75 years old Clinical indication: Chest pain; Type not specified; Additional info: Sepsis/shock TECHNIQUE: Imaging protocol: XR of the chest Views: Frontal portable sitting upright view of the chest. COMPARISON: [place] PORTABLE CHEST X-RAY 01/04/2020 12:18 PM FINDINGS: Tubes, catheters and devices: EKG leads are present overlying the chest. Lungs: The lungs are clear bilaterally. The pulmonary vasculature is normal. Pleural space: No pleural effusion. No pneumothorax. Heart/Mediastinum: The heart is normal in size and contour. Mediastinum: Stable. Bones/joints: Stable. IMPRESSION: No acute cardiopulmonary abnormality identified. Electronically signed by: Leo Healy On 02/01/2020 12:46:49 PM
[2020-02-01 12:56] LABS: ALBUMIN 3.1 GM/DL (3.2-5.2); ALT/SGPT 23 U/L (12-78); BILIRUBIN,DIRECT 0.2 MG/DL (0.0-0.2); BILIRUBIN,TOTAL 0.5 MG/DL (0.2-1.0); BLOOD UREA NITROGEN 59 MG/DL (7-18); CALCIUM LEVEL 8.9 MG/DL (8.8-10.2); CARBON DIOXIDE LEVEL 31 MEQ/L (21-32); CHLORIDE LEVEL 88 MEQ/L (98-107); CK-MB VALUE MASS 1.6 NG/ML (<3.6); CPK CREATINE PHOSPHOKINASE 20 U/L (39-308); CREATININE FOR GFR 2.92 MG/DL (0.70-1.30); GLOMERULAR FILTRATION RATE 22.5 (>42); GLUCOSE, FASTING 98 MG/DL (70-100); POTASSIUM SERUM 5.4 MEQ/L (3.5-5.1); SODIUM LEVEL 123 MEQ/L (136-145); TOTAL PROTEIN 6.3 GM/DL (6.4-8.2); TROPONIN I < 0.02 NG/ML (< 0.10)
--- NOTE | 2020-02-01 12:59 | REPVR ---
PROCEDURE INFORMATION: Exam: CT Head Without Contrast Exam date and time: 02/01/2020 12:46 PM Age: 75 years old Clinical indication: Weakness, extremity TECHNIQUE: Imaging protocol: Computed tomography of the head without contrast. Radiation optimization: All CT scans at this facility use at least one of these dose optimization techniques: automated exposure control; mA and/or kV adjustment per patient size (includes targeted exams where dose is matched to clinical indication); or iterative reconstruction. COMPARISON: CT Head without contrast 12/12/2019 9:12 PM FINDINGS: Brain: Chronic lacunar infarction superior left putamen, anterior caudate body, and adjacent anterior paraventricular gallegos radiata white matter. Chronic infarction anterior inferior left centrum semiovale white matter. Mild hypoattenuating foci are noted in the posterior superior periatrial and anterior lateral ventricular periventricular white matter bilaterally. No intracranial hemorrhage. No mass or acute cortical infarction identified. Ventricles: Prominence of the ventricular system and subarachnoid spaces is consistent with the patient's age of 75 years. Bones/joints: Unremarkable. No acute fracture. Paranasal sinuses: Visualized sinuses are unremarkable. No fluid levels. Mastoid air cells: Visualized mastoid air cells are well aerated. Orbits: Bilateral prior cataract surgery. Vasculature: Atherosclerotic calcifications are present involving the carotid artery siphons bilaterally and the left vertebral artery. Soft tissues: Unremarkable. IMPRESSION: 1. Chronic lacunar infarction left putamen, caudate body, and paraventricular gallegos radiata white matter. 2. Chronic infarction left centrum semiovale white matter. 3. Age appropriate supratentorial and infratentorial atrophy. 4. Mild chronic white matter microvascular ischemic disease. 5. No acute intracranial abnormality identified. Electronically signed by: Leo Healy On 02/01/2020 12:58:29 PM
[2020-02-01 13:40] LABS: BASOPHILS 1 % (0-1); EOSINOPHILS 1 % (0-3); LYMPHOCYTES 16 % (16-44); METAMYELOCYTES 2 % (0-0); MONOCYTES 5 % (0-5); MYELOCYTES 2 % (0-0); NEUTROPHILS 73 % (28-66); PLATELET ESTIMATE NORMAL (NORMAL)
[2020-02-01 13:42] LABS: ANISOCYTOSIS 1+
--- NOTE | 2020-02-01 13:58 | ECGEPIP ---
[facility] - ED Test Date: 2020-02-01 Pat Name: CARTER DE LA ROSA Department: Room: - Gender: Male International Marketing Coordinator: SARBJIT : 1945 Requested By: Malka Greenwood Order Number: [id number] Reading MD: Malka Greenwood Measurements Intervals [place] Rate: 68 P: 24 [place]: 245 QRS: 222 QRSD: 94 T: 14 QT: 409 QTc: 437 Interpretive Statements SINUS RHYTHM WITH FIRST DEGREE AV BLOCK PATTERN CONSISTENT WITH PULMONARY DISEASE INCOMPLETE RIGHT BUNDLE BRANCH BLOCK POSSIBLE RIGHT VENTRICULAR HYPERTROPHY MODERATE ST DEPRESSION Electronically Signed on 02-01-2020 13:58:23 EDT by Malka Greenwood
--- NOTE | 2020-02-01 14:29 | REPVR ---
PROCEDURE INFORMATION: Exam: US Duplex Left Lower Extremity Arteries Or Arterial Bypass Grafts Exam date and time: 02/01/2020 2:13 PM Age: 75 years old Clinical indication: Other: Cold/blue left foot, absent pressures; Prior surgery; Surgery date: 6+ months; Surgery type: Stent in lt leg, unsure when; Additional info: Cold/blue left foot eval for arterial patency lle TECHNIQUE: Imaging protocol: Left Real-time duplex scan of the arteries or arterial bypass grafts of the left lower extremity with 2-D jackson scale, color Doppler flow and spectral waveform analysis. Images documented and saved. COMPARISON: US UNI LOW EXTREM ARTERIAL LIMIT 09/18/2018 9:48 AM FINDINGS: Left common femoral artery: 144 cm/sec, triphasic. Left superficial femoral artery: Proximal SFA 34.1-30.7 cm/sec, biphasic/triphasic. Mid SFA 76-25 cm/sec, triphasic. Distal SFA, intraluminal stent, 13.7 cm/sec, monophasic, distally occluded. Left popliteal artery: Proximal popliteal reconstituted, 4.9 cm/sec, monophasic. Distal popliteal 7.8 cm/sec, monophasic. Left calf/foot arteries: Tibioperoneal trunk 6.8 cm/sec. Proximal SERVANDO 6.1-6.3 cm/sec, monophasic. Distal SERVANDO 4.9 cm/sec, monophasic. Proximal SUPERVISORY FORESTER 0 cm/sec. Mid SUPERVISORY FORESTER reconstituted, 4.9 cm/sec, monophasic. Distal SUPERVISORY FORESTER 5.1 cm/sec, monophasic. Other arteries: Left proximal profunda femoris artery: 126 cm/sec, triphasic. IMPRESSION: Occluded distal SFA stent. Occluded proximal posterior tibial artery. Reconstitution of infrapopliteal vessels as above. Electronically signed by: Leo Healy On 02/01/2020 14:29:21 PM
[2020-02-01] MEDS ORDERED: HEPARIN DRIP 25,000 UNITS in IV 1 EA IV SCH (14:50)
[2020-02-01 15:17] LABS: PARTIAL THROMBOPLASTIN TIME 27.8 SECONDS (24.2-38.5)
[2020-02-01] MEDS ORDERED: TORS20TA2 PO (15:54)
[2020-02-01] MEDS ORDERED: SPIR-10 PO (15:54)
[2020-02-01] MEDS: NS 1,000 ML IV SCH (16:09)
[2020-02-01 16:56] LABS: CALCIUM LEVEL 8.7 MG/DL (8.8-10.2); CREATININE FOR GFR 3.04 MG/DL (0.70-1.30); GLOMERULAR FILTRATION RATE 21.4 (>42); POTASSIUM SERUM 5.8 MEQ/L (3.5-5.1)
[2020-02-01 17:00] VITALS: BP 112/68
[2020-02-01] MEDS ORDERED: ACETAMINOPHEN 500 MG TAB PO PRN (17:15)
[2020-02-01] MEDS ORDERED: GLUCOSE 4GM CHEW TABLET PO PRN (17:15)
[2020-02-01] MEDS ORDERED: DEXTROSE 50% 50 ML SYRINGE IV PRN (17:15)
[2020-02-01] MEDS ORDERED: FLUTICASONE PROP 0.05% NASAL SPRAY 16 GM (FLONASE) NARES PRN (17:15)
[2020-02-01] MEDS ORDERED: GLUCAGON INJ 1MG VIAL SC PRN (17:15)
[2020-02-01] MEDS ORDERED: ALBUTEROL SULFATE 2.5 MG/0.5 ML INH NEB SOLN INH PRN (17:15)
[2020-02-01] MEDS: HumaLOG INSULIN (NovoLOG) PER UNIT SC SCH ×2 (17:30→21:00)
[2020-02-01] MEDS ORDERED: NS 500 ML IV ONE (18:00)
--- NOTE | 2020-02-01 18:17 | HPEPDOC ---
General Date of Admission Feb 01, 2020 at 15:23 Date of Service: Feb 01, 2020 Attending Physician: ESTEE RUTEHRFORD DO Chief Complaint The patient is a 75-year-old male admitted with a reason for visit of Hyponatremia,Hypotenson,Vascular Occlusion. History of Present Illness Mr. Alberto is a 75-year-old male with CAD status post several stents in 2017, PVD status post left lower extremity stent, diabetes mellitus type 2, and diastolic heart failure who initially came to the ED for hypertension, but then was found to have an occluded distal SFA stent and occluded proximal posterior tibial artery. Patient recently left [facility]. He was there from 01/07/2022, 01/23/2020 when he left AGAINST MEDICAL ADVICE. He was tired of walking up the stairs and didn't want to stay any longer. Patient said that at that time. His toes were cold and blue and he felt weak. He went home and continued his diuretics and fluid rejection. He measures his blood pressure at home and notices that sometimes it was within normal and sometimes it was low. Yesterday he was having low readings. Today, he measured 70/50. His home care nurse confirmed the reading. He came to the ED and his blood pressure was normotensive, but when they look at the foot, it was blue tinged. Extremity arterial study demonstrated occlusions with reconstitution of infrapopliteal vessels. There was some concern for his weakness and so a CT head was performed. There is no acute findings. In addition, his sodium was low at 123. I spoke with the patient. He denied any fever, chills, sore throat, dyspnea, cough, chest pain, abdominal pain, diarrhea or dysuria. He did see that he had a poor appetite and has not drink much. His mouth felt dry. He does feel lightheaded sometimes. He feels very fatigued. He is told me that he has been compliant with his diuretics and fluid restriction. About a month ago he weighed 271 pounds. At that time, he said he felt well and breathing well. He told me he weighed 241.6 pounds today. His legs appeared extremely skinny. His capillary refill was very sluggish. Oral mucosa appeared dry. His findings, plus his low blood pressure, lead me to believe that he is hypovolemic, and that he has hypovolemic hyponatremia. I contacted vascular surgery. They recommended a heparin drip. They'll come and evaluate the patient. For the hypovolemic hyponatremia, pre-renal darrell, and hyperkalemia, I have consulted nephrology Home Medications Scheduled Aspirin (Aspirin) 325 Mg Tab, 325 MG PO DAILY, (Reported) Clopidogrel Bisulfate (Clopidogrel) 75 Mg Tab, 75 MG PO DAILY, (Reported) Fluoxetine Hcl (Fluoxetine HCl) 10 Mg Capsule, 30 MG PO DAILY, (Reported) Insulin Aspart (Novolog Flexpen) 100 Unit/Ml Inj, 1 DOSE SC ACHS, (Reported) PER SLIDING SCALE Insulin Glargine,Hum.rec.anlog (Toujeo Solostar) 300 Unit/Ml Inj, 30 UNIT SC DAILY, (Reported) Insulin Glargine,Hum.rec.anlog (Toujeo Solostar) 300 Unit/1 Ml Insuln.pen, 60 UNIT SC QHS, (Reported) Isosorbide Mononitrate (Isosorbide Mononitrate ER) 60 Mg Tab.er.24h, 60 MG PO DAILY, (Reported) Lisinopril (Lisinopril) 2.5 Mg Tab, 2.5 MG PO QHS, (Reported) Magnesium Oxide (Magnesium Oxide) 400 Mg Tab, 400 MG PO DAILY, (Reported) Metoprolol Tartrate (Metoprolol Tartrate) 25 Mg Tab, 12.5 MG PO QHS, (Reported) Omeprazole (Omeprazole) 20 Mg Tab, 20 MG PO BID, (Reported) Potassium Chloride (Potassium Chloride) 20 Meq Tablet.er, 20 MEQ PO DAILY, (Reported) Ranolazine (Ranexa) 1,000 Mg Tab.er.12h, 1,000 MG PO BID, (Reported) Rosuvastatin Calcium (Rosuvastatin Calcium) 40 Mg Tab, 40 MG PO QHS, (Reported) Salmeterol/Fluticasone (Advair 500-50 Diskus) 28 Puff/Inhaler Aerp, 1 PUFF INH BID, (Reported) Spironolactone (Spironolactone) 25 Mg Tablet, 25 MG PO BID, (Reported) @ 0900, 1700 Torsemide (Torsemide) 20 Mg Tablet, 40 MG PO BID, (Reported) @ 0900, 1700 Umeclidinium [place] (Incruse Ellipta) 62.5 Mcg/Inh Inh, 1 PUFF INH DAILY, (Reported) Scheduled PRN Acetaminophen (Mapap) 500 Mg Tablet, 1,000 MG PO Q6H PRN for PAIN, (Reported) Albuterol Sulf (Albuterol Sulfate) 2.5 Mg/3 Ml Vial.neb, 2.5 MG INH Q4HP PRN for SHORTNESS OF BREATH, (Reported) Albuterol Sulfate (Ventolin Hfa) 108 Mcg/Act Aer, 2 PUFF INH Q4H PRN for SHORTNESS OF BREATH, (Reported) Fluticasone Propionate (Fluticasone Propionate) 16 Gm Grundy.susp, 1 SPRAY NARES DAILY PRN for CONGESTION, (Reported) Nitroglycerin (Nitrostat) 0.4 Mg Subl, 0.4 MG SL NITRO PRN for CHEST PAIN, (Reported) Allergies Coded Allergies: Cephalosporins (Verified Allergy, Intermediate, RASH, 06/21/19) RASH PER Penicillins (Verified Allergy, Intermediate, RASH, 06/21/19) clavulanic acid (Verified Allergy, Intermediate, RASH, 06/21/19) levofloxacin (Verified Allergy, Intermediate, RASH, 06/21/19) Past Medical History Medical History 1. COPD (3L at home, follows with Dr. Crespo) 2. diastolic CHF (LVEF 65%, 10/2019) 3. JAELYN on CPAP 4. HTN 5. IDDM2 6. CAD s/p several stents in 2017 7. PVD s/p LLE stent 8. Morbid obesity Surgical History 1. Cholecystectomy 1989 2. Cardiac stenting 2016 3. LLE stenting 2018 Family History Father had multiple MIs, at the age of 53. Mother had lung cancer, at the age of 60 Social History * Smoker: former Smoker (quit smoking 30 years ago, smoked for about 16 years, 2.5 packs per day) Alcohol: Denies Drugs: denies A-FIB/CHADSVASC A-FIB History Current/History of A-Fib/PAF?: No Review of Systems Constitutional: Denies: Chills, Fever Eyes: Denies: Vision change ENT: Denies: Head Aches Skin: Reports: Bruising; Denies: Rash Pulmonary: Denies: Dyspnea Cardiovascular: Denies: Chest Pain Gastrointestinal: Denies: Nausea, Abdominal Pain, Diarrhea Genitourinary: Denies: Dysuria Hematologic: Reports: Bruising Musculoskeletal: Denies: Muscle Pain Neurological: Reports: Weakness (and his legs) Physical Examination General Exam: Positive: Alert, Cooperative, No Acute Distress Eye Exam: Positive: EOMI; Negative: Sclera icteric ENT Exam: Positive: Atraumatic Neck Exam: Positive: Supple Chest Exam: Positive: Clear to auscultation Heart Exam: Positive: Rate Normal, Regular Rhythm Abdomen Exam: Positive: Normal bowel sounds; Negative: Tenderness Extremity Exam: Negative: Edema Skin Exam: Negative: Nl turgor and temperature (Feet are cold. Left foot big toe is purplish/bluish) Neuro Exam: Positive: Cranial Nerves 3-12 NL Psych Exam: Positive: Mental status NL, Mood NL Vital Signs Vital Signs Date Time Temp Pulse Resp B/P (MAP) Pulse Ox O2 Delivery O2 Flow Rate FiO2 02/01/20 17:00 96.4 70 16 112/68 (83) 99 Nasal Cannula 3.0 Laboratory Data Labs 24H Laboratory Tests 2 02/01/20 12:13: Immature Granulocyte % (Auto) , Neutrophils (%) (Auto) , Nucleated Red Blood Cells % (auto) 0.0, Neutrophils 73H, Lymphocytes (Manual) 16, Monocytes (Manual) 5, Eosinophils (Manual) 1, Basophils (Manual) 1, Metamyelocytes 2H, Myelocytes 2H, Anisocytosis 1+, Platelet Estimate NORMAL, Prothrombin Time 12.9, Prothromb Time International Ratio 0.95, Activated Partial Thromboplast Time 27.8, Blood Gas Bicarbonate Standard 25.0, Venous Blood pH 7.368, Venous Blood Partial Pressure CO2 49.4, Venous Blood Partial Pressure O2 31.3, Venous Blood Total Carbon Dioxide 29.3H, Venous Blood HCO3 27.8H, Venous Blood Oxygen Saturation 56.0L, Venous Blood Base Excess 1.7, Anion Gap 4L, Glomerular Filtration Rate 22.5L, Lactic Acid Level 1.6, Calcium Level 8.9, Total Bilirubin 0.5, Direct B ilirubin 0.2, Aspartate Amino Transf (AST/SGOT) 14, Alanine Aminotransferase (ALT/SGPT) 23, Alkaline Phosphatase 112, Total Creatine Kinase 20L, Creatine Kinase MB 1.6, Creatine Kinase MB Relative Index 8.00H, Troponin I < 0.02, Total Protein 6.3L, Albumin 3.1L, Albumin/Globulin Ratio 1.0 02/01/20 15:56: Anion Gap 6L, Glomerular Filtration Rate 21.4L, Calcium Level 8.7L CBC/BMP Laboratory Tests 02/01/20 12:13 02/01/20 15:56 Microbiology Microbiology 02/01/20 Blood Culture, Received Pending 02/01/20 Blood Culture, Received Pending Assessment/Plan Mr. Alberto is a 75-year-old male, history of coronary artery disease, status post several stents, peripheral vascular disease status post lower left extremity stent, diabetes mellitus type 2, hypertension, diastolic heart failure who comes to [facility] initially for hypotension and was found to have arterial occlusions. Vascular surgery is aware and following. He has hypovolemic hyponatremia secondary to self fluid restriction and diuresis. We will give him fluids, monitor his blood pressure, and monitor his sodium and potassium. Nephrology has been consulted Plan / VTE VTE Prophylaxis Ordered?: Yes Plan Plan 1. Occlusion of distal SFA stent and proximal posterior tibial artery of the left leg Left toe is purplish/bluish and cold. Imaging demonstrates occlusion with reconstitution of infrapopliteal vessels. Vascular surgery consulted, recommendations are appreciated. Recommended heparin drip. 2. Hypovolemic hyponatremia. Patient at home measured low blood pressure at home. Patient is on fluid restriction and diuretics. He's lost 30 pounds since a month ago. His legs look extremely skinny. Capillary refill is very sluggish. Oral mucosa appears dry. In addition, he has a Chiari creatinine in the ED was 2.92, with his baseline being 2.4. We'll start him on normal saline with frequent BMP checks. We will hold diuretics Consulted nephrology. Recommendations appreciated 3. Hyperkalemia. Potassium was 5.4 in the ED. May be secondary to acute renal injury We'll follow BMPs frequently. 4. Acute renal injury Creatinine elevated at 2.9. Baseline closer to 2.4. We will hydrate 5. Hypotension. We will follow blood pressure. Holding all antihypertensives and nitrates 6. Heart failure with preserved ejection fraction. He recently had an echocardiogram on 10/20/2019. Demonstrated an EF of 65%. He appears hypovolemic. 7. History of CAD status post multiple stents. Due to his hypotension. We will hold his Imdur and as on beta yazmin and jaclyn. Continue aspirin and statin. 8. History of peripheral vascular disease. Continue aspirin and Plavix. 9. COPD Stable. Continue inhalers. 10. Diabetes mellitus Diabetic diet. Continue insulin. 11. DVT prophylaxis. On heparin drip per protocol. ESTEE RUTHERFORD DO Feb 01, 2020 18:17
[2020-02-01 19:44] VITALS: BP 84/54
--- NOTE | 2020-02-01 19:44 | REPVR ---
PROCEDURE INFORMATION: Exam: US Non-Invasive Physiologic right Lower Extremities Arteries, Complete Exam date and time: 02/01/2020 6:50 PM Age: 75 years old Clinical indication: Other: Acute occlusion of left, eval right; Additional info: Thready pulse right foot TECHNIQUE: Imaging protocol: Complete bilateral noninvasive physiologic studies of right lower extremity arteries, 3 or more levels or single level study with provocative functional maneuvers. Images were documented and archived. Exam is complete. COMPARISON: US UNI LOW EXTREM ARTERIAL LIMIT 02/01/2020 1:32 PM FINDINGS: Right femoral arteries: Moderate atherosclerotic changes in the common femoral artery. Peak velocities range between 125 and 137 cm/s. Triphasic waveform in the common femoral artery. Diffuse moderate atherosclerotic changes in the superficial femoral artery with decremental velocities and triphasic waveforms. Right infrapopliteal arteries: Mix triphasic biphasic waveform in the popliteal artery with a velocity increase to 216 cm/s maximally. Biphasic waveform in the tibioperoneal trunk, proximal and distal PMO MANAGER, and distal SERVANDO. Proximal SERVANDO is occluded and demonstrates a proximal high-grade stenosis. Right Ankle-Brachial Index: 0.9 IMPRESSION: Moderate to severe atherosclerotic plaque in the right leg arteries. Triphasic waveforms demonstrated from the common femoral artery to the proximal popliteal artery. There is a greater than 100% velocity increase in the distal popliteal artery consistent with a 50-99% stenosis. Proximal SERVANDO is stenotic proximally within occlusion just distally to the stenosis, and revascularized in in the distal portion of the vessel. Electronically signed by: Filemon Byrne On 02/01/2020 19:44:02 PM
[2020-02-01] MEDS: ADVAIR HFA 230/21MCG INHALER INH SCH (19:51)
--- NOTE | 2020-02-01 20:05 | CR.PDOC ---
General Date of Consultation: Feb 01, 2020 Consultation REASON FOR CONSULTATION/CHIEF COMPLAINT: Acute on chronic bilateral lower extremity ischemic changes HISTORY OF PRESENT ILLNESS: This is a very pleasant 75-year-old gentleman with long-standing end-stage bilateral lower extremity peripheral vascular disease, last seen by another provider at our institution in April 2018, then lost to follow-up with multiple missed appointments in our office. Recently, he says he developed sensory changes and temperature changes in the left and right lower extremity, the left greater than right. He says the left leg is also become increasingly weak and it has been difficult to ambulate. He was at a facility about a week ago with a COPD exacerbation, and says he had multiple falls. He said first he fell on the right side and has extensive bruising on his right hip thigh and knee, and then also on the left side and he has a big bruise on the left knee with a skin tear as well. He also has some bruising on the left thigh. He says since that time, the temperature change in his feet has gotten progressively colder, and his ability to bear weight and his motor skills have diminished. He left AMA from that admission. He returned to the ER today with complaints of hypotension, and was found to be intravascularly very dry, with acute on chronic renal insufficiency, and worsening discoloration and ischemia of the bilateral lower extremities. He initially had an arterial duplex of the left lower extremity, which showed changes from his last arterial duplex. In April 2018, the patient had an arteriogram of the left lower extremity and I have reviewed these images. There is no report in the computer, but what I found was decent inflow through the iliac and proximal SFA, with chronic heavy atherosclerotic plaque and occlusion of the mid distal SFA to the mid popliteal artery, collateral circulation down to the popliteal artery below this, with single-vessel runoff to the foot through the peroneal artery. This collateralized to the anterior tibial artery distally in the dorsal pedis artery. There was no in-line flow through the posterior tibial artery her anterior tibial artery. He then had a revascularization with angioplasty and stenting of the SFA and proximal popliteal artery providing in-line flow to the foot through single-vessel tibial runoff. I suspect that sometime over the last 2 years, the stent slowly started to occlude and since the patient was lost to follow-up, he was unaware that this was happening. Then, I suspect in the last week or 2 when he has had increasing hypotensive episodes the stent completely thrombosed creating a more acute on chronic vascular insufficiency in the left lower extremity. Currently, the left foot from the mid foot to the toes is purple bluish and mottled, appears both bruised and ischemic, but he can wiggle his toes and there is no wet or dry gangrene present. I can only Doppler faint DP signal on the left, and there is minimal capillary refill. The foot is not tender but it is very cold. The right leg is similar. From about the mid calf down it is also cold, although the color changes in the distal foot and toes are not as pronounced as they are and the left. However, I noticed similar changes beginning on the right and I do not suspect it is far behind from the left. I do not have past arteriogram imaging to look at on that leg. I discussed with the patient that this is a challenging problem. I am not sure the tissue in the left foot is viable, even if revascularization can be provided. The patient does not have suitable targets for a bypass, and an e ndovascular approach would first require TPA thrombolysis to open up any thrombosed areas before trying to repeat angioplasty or stenting. Unfortunately, with multiple recent falls, I do not believe tPA is safe for the patient. He would be at risk for bleeding with TPA administration especially in the ipsilateral extremity. Additionally, endovascular approach would be risky to the patient from a renal standpoint, with acute on chronic renal insufficiency. I would be very concerned about contrast administration, although we would use is minimal contrast as possible. Therefore, I do not have a good option for heroic attempts at limb salvage at this time. The patient is on a heparin drip from the ER per my recommendation, and we will continue this for now and see if any improvement occurs. I've also wrapped his feet and warm blankets to try to help keep them warm. It is unclear to me if the limbs will be salvageable and I discussed with the patient that he is high risk for bilateral amputations. The left would certainly be the more pressing, and we prefer not to do them at the same time, so hopefully we would be able to maintain enough flow in the right lower extremity to allow a few weeks in between if bilateral amputations were necessary. I do not think the patient has adequate flow for a below-knee amputation, and would require an above-knee amputation. I told him that there is no garcia for this since he does not have wet gangrene or any urgent requirements, but it is something that we will probably be discussing over the next few days depending on his progress. He was extensively counseled and all questions were answered. ALLERGIES: Please see below. HOME MEDICATIONS: Please see below. PAST MEDICAL HISTORY: Severe end-stage peripheral vascular disease bilateral lower extremities, coronary artery disease, CHF, COPD on home oxygen, diabetes, renal insufficiency, hypertension, sleep apnea, reflux, obesity PAST SURGICAL HISTORY: Cholecystectomy, cardiac cath with stenting, lower extremity arteriogram with stenting FAMILY HISTORY: Coronary artery disease and cancer SOCIAL HISTORY: History of tobacco heavy use, now quit for greater than 10 years, denies alcohol or illicit drug use REVIEW OF SYSTEMS: CONSTITUTIONAL: Positive malaise denies fevers chills HEENT: Denies vision changes or trouble hearing CARDIOVASCULAR: Positive hypertension and coronary artery disease and heart failure denies chest pain RESPIRATORY: Positive shortness of breath home oxygen use denies cough GENITOURINARY: Denies dysuria MUSCULOSKELETAL: Positive lower extremity weakness positive lower extremity color and temperature changes positive history of PVD and claudication progress ing to rest pain GASTROINTESTINAL: Positive reflux denies nausea vomiting SKIN: Denies rashes positive color changes lower extremities NEUROLOGICAL: Denies TIA or stroke denies headache denies seizures PSYCHIATRIC: Denies anxiety depression ENDOCRINE: Positive diabetes HEMATOLOGIC/LYMPHATIC: Denies bleeding or clotting disorders ALLERGIC/IMMUNOLOGIC: Denies PHYSICAL EXAMINATION: VITAL SIGNS: Please see below. GENERAL APPEARANCE: Medically stable HEENT: Normocephalic vision grossly intact TMI RESPIRATORY: Slightly coarse breath sounds bilaterally no wheezing CARDIOVASCULAR: Regular rate and rhythm ABDOMEN: Soft obese nontender EXTREMITIES: Extremities are mottled and cold from the distal calf to the toes. There is dark bluish purple discoloration from the left mid foot to the toes, also progressively discoloring on the right foot as well. Signals in the lower extremities are faint dopplerable, nonpalpable pulses. The patient is able to move his toes on both feet. NEUROLOGICAL: Moves all extremities equally no focal deficits noted PSYCHIATRIC: Pleasant cooperative LABORATORY DATA: Please see below. ASSESSMENT/PLAN: Very pleasant 75-year-old gentleman lost to follow-up for severe bilateral lower extremity peripheral vascular disease now exacerbated with acute on chronic ischemic changes, and limited options for any interventional or surgical revascularization. He is high risk for amputation, likely above the knee, likely left greater than right. 1. Continue heparin drip. Recommend aspirin and statin daily. 2. Keep feet warm and recommend elevating heels to keep pressure off the feet. 3. We will follow closely. Additional recommendations to follow depending on progress with heparin drip. Contraindication to TPA is with recent falls and significant bruising injury to the lower extremities. Risky for any endovascular intervention with acute on chronic renal insufficiency and dehydration. We appreciate the opportunity to participate in the care of this patient. Vital Signs/I&O Vital Signs Date Time Temp Pulse Resp B/P (MAP) Pulse Ox O2 Delivery O2 Flow Rate FiO2 02/01/20 19:44 97.8 72 16 84/54 (64) 98 Nasal Cannula 3.0 Laboratory Data Labs 24H Laboratory Tests 2 02/01/20 12:13: Immature Granulocyte % (Auto) , Neutrophils (%) (Auto) , Nucleated Red Blood Ce lls % (auto) 0.0, Neutrophils 73H, Lymphocytes (Manual) 16, Monocytes (Manual) 5, Eosinophils (Manual) 1, Basophils (Manual) 1, Metamyelocytes 2H, Myelocytes 2H, Anisocytosis 1+, Platelet Estimate NORMAL, Prothrombin Time 12.9, Prothromb Time International Ratio 0.95, Activated Partial Thromboplast Time 27.8, Blood Gas Bicarbonate Standard 25.0, Venous Blood pH 7.368, Venous Blood Partial Pressure CO2 49.4, Venous Blood Partial Pressure O2 31.3, Venous Blood Total Carbon Dioxide 29.3H, Venous Blood HCO3 27.8H, Venous Blood Oxygen Saturation 56.0L, Venous Blood Base Excess 1.7, Anion Gap 4L, Glomerular Filtration Rate 22.5L, Lactic Acid Level 1.6, Calcium Level 8.9, Total Bilirubin 0.5, Direct Bilirubin 0.2, Aspartate Amino Transf (AST/SGOT) 14, Alanine Aminotransferase (ALT/SGPT) 23, Alkaline Phosphatase 112, Total Creatine Kinase 20L, Creatine Kinase MB 1.6, Creatine Kinase MB Relative Index 8.00H, Troponin I < 0.02, Total Protein 6.3L, Albumin 3.1L, Albumin/Globulin Ratio 1.0 02/01/20 15:56: Anion Gap 6L, Glomerular Filtration Rate 21.4L, Calcium Level 8.7L CBC/BMP Laboratory Tests 02/01/20 12:13 02/01/20 15:56 Microbiology Microbiology 02/01/20 Blood Culture, Received Pending 02/01/20 Blood Culture, Received Pending Allergies Coded Allergies: Cephalosporins (Verified Allergy, Intermediate, RASH, 06/21/19) RASH PER Penicillins (Verified Allergy, Intermediate, RASH, 06/21/19) clavulanic acid (Verified Allergy, Intermediate, RASH, 06/21/19) levofloxacin (Verified Allergy, Intermediate, RASH, 06/21/19) Home Medications Scheduled Aspirin (Aspirin) 325 Mg Tab, 325 MG PO DAILY, (Reported) Clopidogrel Bisulfate (Clopidogrel) 75 Mg Tab, 75 MG PO DAILY, (Reported) Fluoxetine Hcl (Fluoxetine HCl) 10 Mg Capsule, 30 MG PO DAILY, (Reported) Insulin Aspart (Novolog Flexpen) 100 Unit/Ml Inj, 1 DOSE SC ACHS, (Reported) PER SLIDING SCALE Insulin Glargine,Hum.rec.anlog (Toujeo Solostar) 300 Unit/Ml Inj, 30 UNIT SC DAILY, (Reported) Insulin Glargine,Hum.rec.anlog (Toujeo Solostar) 300 Unit/1 Ml Insuln.pen, 60 UNIT SC QHS, (Reported) Isosorbide Mononitrate (Isosorbide Mononitrate ER) 60 Mg Tab.er.24h, 60 MG PO DAILY, (Reported) Lisinopril (Lisinopril) 2.5 Mg Tab, 2.5 MG PO QHS, (Reported) Magnesium Oxide (Magnesium Oxide) 400 Mg Tab, 400 MG PO DAILY, (Reported) Metoprolol Tartrate (Metoprolol Tartrate) 25 Mg Tab, 12.5 MG PO QHS, (Reported) Omeprazole (Omeprazole) 20 Mg Tab, 20 MG PO BID, (Reported) Potassium Chloride (Potassium Chloride) 20 Meq Tablet.er, 20 MEQ PO DAILY, (Reported) Ranolazine (Ranexa) 1,000 Mg Tab.er.12h, 1,000 MG PO BID, (Reported) Rosuvastatin Calcium (Rosuvastatin Calcium) 40 Mg Tab, 40 MG PO QHS, (Reported) Salmeterol/Fluticasone (Advair 500-50 Diskus) 28 Puff/Inhaler Aerp, 1 PUFF INH BID, (Reported) Spironolactone (Spironolactone) 25 Mg Tablet, 25 MG PO BID, (Reported) @ 0900, 1700 Torsemide (Torsemide) 20 Mg Tablet, 40 MG PO BID, (Reported) @ 0900, 1700 Umeclidinium [place] (Incruse Ellipta) 62.5 Mcg/Inh Inh, 1 PUFF INH DAILY, (Reported) Scheduled PRN Acetaminophen (Mapap) 500 Mg Tablet, 1,000 MG PO Q6H PRN for PAIN, (Reported) Albuterol Sulf (Albuterol Sulfate) 2.5 Mg/3 Ml Vial.neb, 2.5 MG INH Q4HP PRN for SHORTNESS OF BREATH, (Reported) Albuterol Sulfate (Ventolin Hfa) 108 Mcg/Act Aer, 2 PUFF INH Q4H PRN for SHORTNESS OF BREATH, (Reported) Fluticasone Propionate (Fluticasone Propionate) 16 Gm [place].susp, 1 SPRAY NARES DAILY PRN for CONGESTION, (Reported) Nitroglycerin (Nitrostat) 0.4 Mg Subl, 0.4 MG SL NITRO PRN for CHEST PAIN, (Reported) ANA PETER MD Feb 01, 2020 20:05
[2020-02-01 20:28] LABS: CALCIUM LEVEL 8.3 MG/DL (8.8-10.2); CREATININE FOR GFR 2.84 MG/DL (0.70-1.30); GLOMERULAR FILTRATION RATE 23.2 (>42); POTASSIUM SERUM 5.3 MEQ/L (3.5-5.1)
[2020-02-01] MEDS: LEVEMIR (INSULIN DETEMIR) 1 UNITS/0.01ML SC SCH (21:00)
[2020-02-01] MEDS: OMEPRAZOLE 20 MG CAP PO SCH (21:36)
[2020-02-01] MEDS: ROSUVASTATIN 10 MG TAB (CRESTOR) PO SCH (21:36)
[2020-02-01] MEDS: HEPARIN SOD (PORCINE) 5000UNITS/ML 1ML VIAL/SYRINGE IV PRN (22:55)
[2020-02-01] MEDS: HEPARIN DRIP 25,000 UNITS in IV 1 EA IV SCH (22:58)
[2020-02-02] VITALS: BP 90/52
[2020-02-02 00:41] LABS: CALCIUM LEVEL 8.7 MG/DL (8.8-10.2); CREATININE FOR GFR 2.82 MG/DL (0.70-1.30); GLOMERULAR FILTRATION RATE 23.4 (>42); POTASSIUM SERUM 4.8 MEQ/L (3.5-5.1)
[2020-02-02] MEDS: NS 1,000 ML IV SCH ×3 (01:59→17:31)
[2020-02-02 04:00] VITALS: BP 120/76
[2020-02-02 04:16] LABS: HEMATOCRIT 32.9 % (42.0-52.0); HEMOGLOBIN 10.9 g/dl (13.5-17.5); MEAN CORPUSCULAR HEMOGLOBIN 25.9 pg (27.0-33.0); MEAN CORPUSCULAR HGB CONC 33.1 g/dl (32.0-36.5); MEAN CORPUSCULAR VOLUME 78.1 fl (80.0-96.0); PLATELET COUNT, AUTOMATED 267 10^3/uL (150-450); RED BLOOD COUNT 4.21 10^6/uL (4.30-6.10); WHITE BLOOD COUNT 10.8 10^3/uL (4.0-10.0)
[2020-02-02 04:43] LABS: CALCIUM LEVEL 8.1 MG/DL (8.8-10.2); CREATININE FOR GFR 2.67 MG/DL (0.70-1.30); GLOMERULAR FILTRATION RATE 24.9 (>42); POTASSIUM SERUM 4.7 MEQ/L (3.5-5.1)
[2020-02-02 05:05] LABS: INR 1.02; PROTHROMBIN TIME 13.7 SECONDS (12.5-14.3)
[2020-02-02 05:44] LABS: PARTIAL THROMBOPLASTIN TIME 147.9 SECONDS (24.2-38.5)
[2020-02-02 05:50] LABS: CALCIUM LEVEL 8.2 MG/DL (8.8-10.2); CREATININE FOR GFR 2.64 MG/DL (0.70-1.30); GLOMERULAR FILTRATION RATE 25.2 (>42); POTASSIUM SERUM 4.5 MEQ/L (3.5-5.1)
[2020-02-02] MEDS: HEPARIN DRIP 25,000 UNITS in IV 1 EA IV SCH ×2 (06:47→13:02)
[2020-02-02] MEDS: HumaLOG INSULIN (NovoLOG) PER UNIT SC SCH ×4 (07:30→21:00)
[2020-02-02 08:00] VITALS: BP 107/57
[2020-02-02] MEDS ORDERED: LEVEMIR (INSULIN DETEMIR) 1 UNITS/0.01ML SC SCH (09:00)
--- NOTE | 2020-02-02 09:36 | IPNPDOC ---
Text Note Date of Service The patient was seen on 02/02/20. NOTE Vascular Surgery Dr Hampton. The pt is lethargic this AM, BS 55 and currently receiving IV Dextrose. The pt opens eyes to , RN at bedside. Dr Hampton reviewed the patient's right lower extremity arterial duplex. Dr aHmpton feels it may be possible for revascularization in the right lower extremity with an endovascular approach. Still concern for any contrast use in this patient but could be very judicial at least try to salvage his right leg if we are not able to salvage the left. He has a very tight stenosis at the distal popliteal artery, which may be amenable to an endovascular approach, providing enough blood flow to salvage the right foot and leg. Plan to see how his renal function rebounds with hydration over the next day and make a decision for intervention based on those findings. GFR of 25 this AM. Discuss further with Dr. Pulido. Further recommendations to follow. VS,Fishbone, I+O VS, Fishbone, I+O Laboratory Tests 02/01/20 12:13 02/01/20 15:56 02/01/20 19:49 02/02/20 00:14 02/02/20 04:05 02/02/20 04:39 Vital Signs Date Time Temp Pulse Resp B/P (MAP) Pulse Ox O2 Delivery O2 Flow Rate FiO2 02/02/20 08:00 96.4 65 16 107/57 (74) 100 Nasal Cannula 3.0 I&O- Last 24 Hours up to 6 AM 02/02/20 05:59 Intake Total 532 ml Output Total 280 ml Balance 252 ml Shonna Valenzuela Feb 02, 2020 09:36
[2020-02-02] MEDS: CLOPIDOGREL 75 MG TAB PO SCH (09:57)
[2020-02-02] MEDS: ASPIRIN 325 MG TAB PO SCH (09:57)
[2020-02-02] MEDS: MAGNESIUM OXIDE 400 MG TAB (MAG-OX) PO SCH (09:58)
[2020-02-02] MEDS: OMEPRAZOLE 20 MG CAP PO SCH ×2 (09:58→20:51)
[2020-02-02] MEDS: FLUoxetine 10 MG CAP PO SCH (09:58)
[2020-02-02] MEDS: TIOTROPIUM INHALER/CAPSULE (SPIRIVA) INH SCH (10:44)
[2020-02-02] MEDS: ADVAIR HFA 230/21MCG INHALER INH SCH ×2 (10:44→20:15)
--- NOTE | 2020-02-02 11:40 | IPNPDOC ---
Text Note Date of Service The patient was seen on 02/02/20. NOTE She was seen and examined this morning. Had an episode of hypoglycemia for which his Levemir has been on hold and was given juice and now the glucose is 96. He is alert, oriented times place and person PHYSICAL EXAMINATION: General: The patient is awake, alert, oriented x3, sitting up in the bed in no apparent distress. Head and Neck Exam: Extraocular muscles intact. Pupils equally round and reactive to light. Mucous membranes are moist. Neck is supple. There is no jugular venous distention (JVD). Cardiovascular: S1 and S2, regular rate. Trace edema of the bilateral lower extremities. Respiratory: No rhonchi, no rales, no wheezing. Abdomen: Soft. Positive bowel sounds. Nontender. No organomegaly. Genitourinary: Deferred, Musculoskeletal: Clubbing of the fingernails, left foot is cooler than the right foot. Peripheral pulses were not been able to be appreciated in the left foot. Purple discoloration noted in the lateral side of the foot including the toes Central Nervous System (SECURITY COMPLIANCE ENGINEER): No focal deficit. Power is 5/5 in all extremities. Assessment and plan Mr. Alberto is a 75-year-old male, history of coronary artery disease, status post several stents, peripheral vascular disease status post lower left extremity stent, diabetes mellitus type 2, hypertension, diastolic heart failure who comes to [facility] initially for hypotension and was found to have arterial occlusions. Vascular surgery is aware and following. He has hypovolemic hyponatremia secondary to self fluid restriction and diuresis, which is currently improving. 1. Occlusion of distal SFA stent and proximal posterior tibial artery of the left leg. Left toe is purplish/bluish and cold. Imaging demonstrates occlusion with reconstitution of infrapopliteal vessels. Vascular surgery consulted, and as per them if nephrology is okay with them proceeding for the procedure as it will require contrast . They would try to do the procedure. Continue heparin drip at this time. 2. Hypovolemic hyponatremia. Patient at home measured low blood pressure at home. Patient is on fluid restriction and diuretics. Oral mucosa appeared dry on the initial encounter when he came in., So he was having some AK I leading to the diagnosis of hypovolemic hyponatremia and for that reason, the patient has been on IV fluids and his sodium has been getting better. We will continue monitoring sodium. I have ordered urine os D and urine lites. 3. Hyperkalemia. Potassium was 5.4 in the ED. after fluid resuscitation. The patient Has improved as well as potassium is improved to 4.8. 4. Acute renal injury: Improving. Close to baseline now. Until IV fluids. 5. Hypotension. Resolved. Holding all antihypertensives and nitrates 6. Heart failure with preserved ejection fraction. He recently had an echocardiogram on 10/20/2019. Demonstrated an EF of 65%. . He is hypovolemic. Will keep an eye on the volume status. 7. History of CAD status post multiple stents. Due to his hypotension. We will hold his Imdur and as on beta yazmin and jaclyn. Continue aspirin and statin. 8. History of peripheral vascular disease. Continue aspirin and Plavix. 9. COPD Stable. Continue inhalers. 10. Diabetes mellitus : Diabetic diet. Continue insulin. 11. Hyperglycemia. Likely secondary to iatrogenic insulin in presence of AK I. We will hold long-acting insulin DVT prophylaxis. On heparin drip per protocol. Disposition unknown at this time. VS,Fishbone, I+O VS, Fishbone, I+O Laboratory Tests 02/01/20 12:13 02/01/20 15:56 02/01/20 19:49 02/02/20 00:14 02/02/20 04:05 02/02/20 04:39 02/02/20 09:48 Vital Signs Date Time Temp Pulse Resp B/P (MAP) Pulse Ox O2 Delivery O2 Flow Rate FiO2 02/02/20 08:00 96.4 65 16 107/57 (74) 100 Nasal Cannula 3.0 I&O- Last 24 Hours up to 6 AM 02/02/20 05:59 Intake Total 532 ml Output Total 280 ml Balance 252 ml HILTON JOHN MD Feb 02, 2020 11:40
[2020-02-02 12:00] VITALS: BP 111/60
[2020-02-02] MEDS: HEPARIN SOD (PORCINE) 5000UNITS/ML 1ML VIAL/SYRINGE IV PRN (13:05)
[2020-02-02 16:00] VITALS: BP 144/70
[2020-02-02 18:34] LABS: SODIUM,RANDOM URINE 25 MEQ/L
[2020-02-02 18:39] LABS: OSMOLALITY URINE 342 MOSM/KG (500-800)
[2020-02-02 20:00] VITALS: BP 113/57
[2020-02-02 20:08] LABS: ALBUMIN 2.6 GM/DL (3.2-5.2); CALCIUM LEVEL 8.3 MG/DL (8.8-10.2); CREATININE FOR GFR 2.18 MG/DL (0.70-1.30); GLOMERULAR FILTRATION RATE 31.5 (>42); PHOSPHORUS LEVEL 3.7 MG/DL (2.5-4.9); POTASSIUM SERUM 4.6 MEQ/L (3.5-5.1)
[2020-02-02] MEDS: ROSUVASTATIN 10 MG TAB (CRESTOR) PO SCH (20:51)
[2020-02-02] MEDS: LEVEMIR (INSULIN DETEMIR) 1 UNITS/0.01ML SC SCH (21:00)
[2020-02-03] VITALS (8 sets, daily range): BP systolic 116–165; BP diastolic 58–85
[2020-02-03] MEDS: NS 1,000 ML IV SCH ×2 (00:28→07:44)
[2020-02-03 04:57] LABS: HEMATOCRIT 32.2 % (42.0-52.0); HEMOGLOBIN 10.3 g/dl (13.5-17.5); MEAN CORPUSCULAR HEMOGLOBIN 25.7 pg (27.0-33.0); MEAN CORPUSCULAR VOLUME 80.3 fl (80.0-96.0); PLATELET COUNT, AUTOMATED 246 10^3/uL (150-450); RED BLOOD COUNT 4.01 10^6/uL (4.30-6.10); WHITE BLOOD COUNT 10.9 10^3/uL (4.0-10.0)
[2020-02-03 05:28] LABS: ALBUMIN 2.4 GM/DL (3.2-5.2); CREATININE FOR GFR 1.89 MG/DL (0.70-1.30); GLOMERULAR FILTRATION RATE 37.1 (>42); PHOSPHORUS LEVEL 3.2 MG/DL (2.5-4.9); POTASSIUM SERUM 4.4 MEQ/L (3.5-5.1)
[2020-02-03] MEDS: HumaLOG INSULIN (NovoLOG) PER UNIT SC SCH ×4 (07:30→21:00)
[2020-02-03] MEDS ORDERED: NS 1,000 ML IV SCH ×3 (09:30→21:00)
[2020-02-03] MEDS: OMEPRAZOLE 20 MG CAP PO SCH ×2 (09:37→22:04)
[2020-02-03] MEDS: FLUoxetine 10 MG CAP PO SCH (09:37)
[2020-02-03] MEDS: CLOPIDOGREL 75 MG TAB PO SCH (09:37)
[2020-02-03] MEDS: ASPIRIN 325 MG TAB PO SCH (09:37)
[2020-02-03] MEDS: MAGNESIUM OXIDE 400 MG TAB (MAG-OX) PO SCH (09:38)
[2020-02-03] MEDS: HEPARIN DRIP 25,000 UNITS in IV 1 EA IV SCH (09:39)
[2020-02-03] MEDS: TIOTROPIUM INHALER/CAPSULE (SPIRIVA) INH SCH (11:05)
[2020-02-03] MEDS: ADVAIR HFA 230/21MCG INHALER INH SCH ×2 (11:05→19:49)
--- NOTE | 2020-02-03 11:17 | IPNPDOC ---
Text Note Date of Service The patient was seen on 02/03/20. NOTE Patient was seen and examined this morning. He was well oriented to time, place and person, and I had a detailed discussion with him regarding his arteriogram and his kidney dysfunction and he understood and after discussing the risks and benefits, he has decided to get the arteriogram done today. PHYSICAL EXAMINATION: General: The patient is awake, alert, oriented x3, sitting up in the bed in no apparent distress. Head and Neck Exam: Extraocular muscles intact. Pupils equally round and reactive to light. Mucous membranes are moist. Neck is supple. There is no jugular venous distention (JVD). Cardiovascular: S1 and S2, regular rate. Trace edema of the bilateral lower extremities. Respiratory: No rhonchi, no rales, no wheezing. Abdomen: Soft. Positive bowel sounds. Nontender. No organomegaly. Genitourinary: Deferred, Musculoskeletal: Clubbing of the fingernails, left foot is cooler than the right foot. Peripheral pulses were not been able to be appreciated in the left foot. Purple discoloration noted in the lateral side of the foot including the toes Central Nervous System (HOT MIX OPERATOR): No focal deficit. Power is 5/5 in all extremities. Assessment and plan Mr. Alberto is a 75-year-old male, history of coronary artery disease, status post several stents, peripheral vascular disease status post lower left extremity s tent, diabetes mellitus type 2, hypertension, diastolic heart failure who comes to [facility] initially for hypotension and was found to have arterial occlusions. Vascular surgery is aware and following and possibly are going to do arteriogram today. He has hypovolemic hyponatremia secondary to self fluid restriction and diuresis which has improved a lot, and his fluids have been decreased to 50 mL of normal saline. I had a detailed discussion with him regarding his peripheral vascular disease and the necessity of arteriogram by vascular surgery. I gave him the risks and the benefits of the procedure including kidney failure and the need for him to possibly go on dialysis. I gave him the contrast-induced nephropathy score and he gave verbal understanding. He understands the risk of the procedure, but wants to go ahead and get the vascular procedure done prevent amputation of his lower extremities. I have explained to him that even after this procedure, there is no guarantee that his limbs will be salvaged, but he understands. I have informed vascular surgery about it. 1. Occlusion of distal SFA stent and proximal posterior tibial artery of the left leg. Left toe is purplish/bluish and cold. Imaging demonstrates occlusion with reconstitution of infrapopliteal vessels. Also very poor flow in the right lower extremity as well. Vascular surgery consulted, and anterior planning to do an arteriogram today. Continue heparin drip at this time. We will decide about the anticoagulation once the procedure is done 2. Hypovolemic hyponatremia. Improved after slow volume resuscitation. Currently, the patient's sodium is 131. Continue holding the diuretics. Normal sinus decreased to 50 mL as the patient has a mild bibasilar crackles today. 3. Hyperkalemia. Resolved. Continue to monitor 4. Acute renal injury: Improving. Close to baseline now. Until IV fluids. 5. Hypotension. Resolved. Holding all antihypertensives and nitrates 6. Heart failure with preserved ejection fraction. He recently had an echocardiogram on 10/20/2019. Demonstrated an EF of 65%. . He is hypovolemic. Will keep an eye on the volume status. Currently holding his diuretics 7. History of CAD status post multiple stents. Due to his hypotension. We will hold his Imdur and as on beta yazmin and jaclyn. Continue aspirin and statin. 8. History of peripheral vascular disease. Continue aspirin and Plavix. 9. COPD Stable. Continue inhalers. 10. Diabetes mellitus : Diabetic diet. Continue insulin. 11. Hyperglycemia. Likely secondary to iatrogenic insulin in presence of AK I. We will hold long-acting insulin DVT prophylaxis. On heparin drip per protocol. Disposition unknown at this time. VS,Amarie, I+O VS, [place], I+O Laboratory Tests 02/02/20 14:52 02/02/20 19:29 02/03/20 04:32 Vital Signs Date Time Temp Pulse Resp B/P (MAP) Pulse Ox O2 Delivery O2 Flow Rate FiO2 02/03/20 08:30 3.0 02/03/20 08:00 97.5 74 16 131/74 (93) 100 Nasal Cannula I&O- Last 24 Hours up to 6 AM 02/03/20 06:00 Intake Total 5074 ml Output Total 500 ml Balance 4574 ml HILTON JOHN MD Feb 03, 2020 11:17
--- NOTE | 2020-02-03 13:00 | IPNPDOC ---
Text Note Date of Service The patient was seen on 02/03/20. NOTE Vascular Surgery Dr Hampton. The pt is more awake today and responding to questions appropriately. Dr Hampton reviewed the patient's right lower extremity arterial duplex. Dr Hampton feels it may be possible for revascularization in the right lower extremity with an endovascular approach. Still concern for any contrast use in this patient but could be very judicial at least try to salvage his right leg if we are not able to salvage the left. He has a very tight stenosis at the distal popliteal artery, which may be amenable to an endovascular approach, providing enough blood flow to salvage the right foot and leg. The left foot appears slightly improved compared with previous. The left foot appears less mottled, the toes remained purplish. It is cool from the midfoot to the toes. He is able to move the toes. Right lower extremity arteriogram was reviewed with the patient as per Dr. Hampton. The procedure, risks, benefits and alternatives were reviewed. All questions were answered. The patient requested that we also speak with his over the phone, [place]. I spoke with the patient's , discussed right lower extremity angiogram with possible intervention. The patient spoke with his and the patient decided decided he would proceed. Informed consent was obtained and placed with the chart. The patient is made nothing by mouth for procedure later today. GFR 37.1. Patient remains on heparin IV. Aspirin/Plavix/statin. Continue to follow. VS,Fishbone, I+O VS, Fishbone, I+O Laboratory Tests 02/02/20 14:52 02/02/20 19:29 02/03/20 04:32 Vital Signs Date Time Temp Pulse Resp B/P (MAP) Pulse Ox O2 Delivery O2 Flow Rate FiO2 02/03/20 11:57 97.6 76 18 165/85 (111) 100 Nasal Cannula 3.0 I&O- Last 24 Hours up to 6 AM 02/03/20 06:00 Intake Total 5074 ml Output Total 500 ml Balance 4574 ml Shonna Vaelnzuela Feb 03, 2020 13:00
[2020-02-03] MEDS ORDERED: fentaNYL 100 MCG/2 ML INJECTION (J3010) As Ordered ONE (15:25)
[2020-02-03] MEDS ORDERED: MIDAZOLAM INJ 2MG/2ML VIAL (J2250 PER 1MG) As Ordered ONE (15:26)
[2020-02-03] MEDS ORDERED: ISOVUE-300 61% 50ML VIAL As Ordered ONE (15:27)
[2020-02-03] MEDS ORDERED: LIDOCAINE 1% MDV 20ML VIAL As Ordered ONE (15:27)
--- NOTE | 2020-02-03 17:51 | ROOPDOC ---
[facility] Report Of Operation Report of Operation DATE OF PROCEDURE: 02/03/20 PREPROCEDURE DIAGNOSES: Atherosclerosis of the absentee-shawnee arteries with ischemic changes right foot POSTPROCEDURE DIAGNOSES: Same PROCEDURE: 1. Ultrasound-guided access left common femoral artery 2. Aortoiliofemoral arteriogram 3. Selection right superficial femoral artery and right lower extremity runoff 4. Cross chronic total occlusion right anterior tibial artery and selection distal anterior tibial artery dorsal pedis artery with arteriogram 5. Angioplasty right anterior tibial artery with 2.5 x 220 Phu balloon 6. Angioplasty right superficial femoral artery and proximal popliteal artery was 6 x 200 Walton balloon, 7 x 200 Walton balloon 7. Stent proximal right popliteal artery and distal SFA was 6 x 150 Innova stent, and extension with 7 x 150 Innova stent in the distal mid SFA, and extension with a 7 x 150 Innova stent from the mid to the proximal SFA 8. Post-dilation SFA stents with 7 x 150 Walton balloon 9. Completion arteriograms 10. Mynx closure left common femoral artery SURGEON: Ana Hampton MD ANESTHESIA: Local anesthesia 6 mL lidocaine with epinephrine. Moderate intravenous conscious sedation was supervised by Dr. Hampton. The patient was independently monitored by registered nurse assigned to the Department of radiology using automated blood pressure, EKG, and pulse oximetry. The detailed sedation record is permanently stored in the hospital information system. The following is a brief sedation record: Start time 15:50, stop time 17:11, Versed 0.5 mg IV, fentanyl 25 g IV. CONTRAST: 47 mL Isovue-300 INDICATION FOR PROCEDURE: Mr. Alberto is a very pleasant 75-year-old gentleman with severe end-stage bilateral lower extremity peripheral vascular disease and ischemic changes of both feet, due to thrombosis of his SFA stents on the left, and on the right due to chronic atherosclerosis of the absentee-shawnee arteries. Today, we recommend arteriogram of the right lower extremity to see if we can provide endovascular intervention to improve flow and areas of absentee-shawnee artery plaque. Risks benefits and alternatives were explained and the patient is agreeable to proceed. We especially went over all of the risks for his renal insufficiency. The patient has acute on chronic renal failure, that has improved somewhat over the past 5 days, and I have spoken with his hospitalist team and Dr. Perera his customer facilities supervisor, and they both feel it is okay to proceed with arteriogram today. We will use as little contrast as possible and give plenty of oral saline fluid as well as saline flushes during the case. The patient is agreeable to this plan. INTERPRETATION: 1. Aortoiliac segments are ectatic and calcified but no flow-limiting stenoses are noted. The bilateral common iliac arteries and hypogastric arteries are widely patent. The right external iliac artery has a focal stenosis of kallie roximately 30% in the distal portion, and this is an area nonamenable to stent. No intervention for the iliac vessels. 2. Right common femoral artery is heavily calcified with visible posterior wall and anterior wall plaque, but overall not flow-limiting. There is good flow into the profunda. The origin of the SFA and the entire length of it is calcified with several areas of focal bulky calcified plaque. At the origin, there is about 40% stenosis, distal to this there is a long area of about 30% stenosis, then there are several other focal areas of 40-80% stenosis, and then in the proximal popliteal artery there are a few focal stenoses of 60-80%. The mid and distal popliteal artery is calcified and ectatic but widely patent. The tibial runoff is through the tibioperoneal trunk and the posterior tibial and peroneal arteries. Both of the tibial vessels are patent R calcified, but no flow- limiting stenoses noted. The anterior tibial artery occludes near its origin and does not reconstitute. 3. After attempting to angioplasty both the proximal popliteal artery and the superficial femoral artery, the sharp calcified bulky plaque ruptured to balloons, a 6 x 200 Walton, and a 7 x 200 Walton. Residual stenoses was noted along all areas, therefore we stented from the proximal popliteal artery to the origin of the SFA with Innova stent and post dilated with a 7 x 150 Walton balloon. Following this, there is widely patent flow through the SFA and the popliteal artery on the right. 4. It was difficult across a chronic total occlusion in the right anterior tibial artery. Once we were successfully across, quit contrast injection confirmed we were in the true lumen. We angioplasties along the length of the vessel for multiple three-minute inflations, but there was still limited flow through the vessel. We ended up angioplasty across into the dorsal pedis artery to provide better outflow, but still flow through the artery is a bit sluggish. There may be some spasm in the pedal vessels that will resolve with time. However, now the patient does have 3 vessel runoff to the foot. No dissection, embolization, or extravasation were noted. REPORT OF OPERATION: The patient is drowsy angiographic suite in stable condition. His bilateral groins were prepped and draped in sterile fashion. A timeout was performed. Sedation was administered without complication. Local anesthesia was a commercial sales consultant to the skin and subcutaneous tissue over the left common femoral artery. A microneedle was used to access the artery under ultrasound guidance. A wire was passed through this access and the needle was removed. A 4 Faroese sheath was placed and flushed with saline. A Glidewire and obviously flushed catheter were advanced into the distal aorta. Aortoiliofemoral arteriograms were performed. Please see interpretation above. With up and over the bifurcation with a Glidewire in the catheter. We then selected the right superficial femoral artery and arteriograms with runoff or perform. Please see interpretation above. We then carefully crossed through this stenoses in the SFA and popliteal artery on the right. Weak states the sheath for 45 cm 6 Faroese sheath and flushed the sheath with saline. A 6 x 200 Walton balloon was advanced over the wire and angioplasty was performed along the length of the SFA and popliteal artery. We noted some residual stenosis in the popliteal artery and the distal SFA, and the balloon was reinflated, but the plaque ruptured the balloon. This balloon was then removed. We placed a 6 x 150 Innova stent across the proximal popliteal artery and distal SFA, and then a 7 x 150 Innova stent with a 1 cm overlap on the distal to mid SFA. We post dilated this with a 7 x 200 Walton balloon, and then angioplasty the proximal SFA again with a 7 x 200 Walton balloon, but the plaque ruptured the balloon. Therefore, we extended an additional stent from the mid SFA to the proximal origin of the SFA with a 1 cm overlap and post dilated with a 7 x 150 Innova stent. There was rapid flow through the entire SFA and popliteal artery following angioplasty and stenting. We then exchange the wire for N018 wire and advance this into the anterior tibial artery with the help of applied cath. We were challenged with crossing through the occlusion in the anterior tibial artery, which proved to be difficult, but eventually we were able to cross into the dorsal pedis artery. A 2.5 x 220 Phu balloon was advanced over the wire and to quit contrast injection through the balloon showed that we were in the true lumen. We then replaced the wire and into three-minute inflations along the length of the vessel. There was still not good antegrade flow through the vessel, and we suspected outflow issues, we advanced a wire further into the dorsal pedis and the plantar arteries and angioplastied into the midfoot. We did additional three-minute inflations along the length of the vessel, but still flow was limited. We repeated this angioplasty along the anterior tibial artery dorsal pedis artery through time, and following this there was good flow into the foot, and 3 vessel runoff in the calf. I'm hoping that some of the sluggish flow in the anterior tibial arteries due to spasm which will improve with time. We then exchange the sheath over an O35 wire for short 6 Faroese sheath and flushed the sheath with saline. A Mynx closure device was deployed with good hemostasis, although did we did have some venous oozing from the access site which I suspect may have been a bridging vein. I did not see any arterial bleeding. We had to hold pressure for an additional 15 minutes due to this venous oozing, which I suspect was difficult to stop due to the patient's dose of Plavix this morning and heparin drip prior to the procedure. Nevertheless, eventually hemostasis was achieved and the patient was taken to recovery in stable condition. Sterile dressings were applied. He tolerated the procedure and the sedation well. ESTIMATED BLOOD LOSS: Approximately 10 mL. COMPLICATIONS: None. PLAN: The patient will be on bed rest overnight. We will start eliquis tonight and continue this outpatient. We will discontinue the Plavix for now. Continue aspirin daily. Starting tomorrow, we can slowly advance activity as tolerated. I'd like to see what his weightbearing status on his left lower extremity is now that his perfusion has somewhat improved. I'm still worried that the patient will have trouble bearing weight on the left lower extremity and have expressed these fears to his nurses and his family. For the right lower extremity, where hoping that our intervention today will provide improvement flow for the patient and resolve the ischemic changes we initially saw and his foot a few days ago. As far as outpatient, at minimum we like to see the patient in 1 month with a repeat arterial duplex, although it would be nice to see him at a week outpatient just to see how his left lower extremity perfusion is doing. I also discussed this with his family, but I understand it is hard for them to get him to appointments. At the very minimum, we really want to see him in a month with a repeat arterial duplex and I stressed this to them that surveillance is extremely important. Because is a perfusion in the left lower extremity has improved somewhat with anticoagulation, I do not feel urgent amputation as needed and am hopeful that he will continue to improve. We appreciate the opportunity to participate in the care of this patient. ANA HAMPTON MD Feb 03, 2020 17:51
[2020-02-03] MEDS: LEVEMIR (INSULIN DETEMIR) 1 UNITS/0.01ML SC SCH (21:00)
[2020-02-03] MEDS: ROSUVASTATIN 10 MG TAB (CRESTOR) PO SCH (22:04)
[2020-02-03] MEDS: APIXABAN 5 MG TAB (ELIQUIS) PO SCH (22:04)
[2020-02-04] VITALS (7 sets, daily range): BP systolic 90–139; BP diastolic 58–65
[2020-02-04 05:29] LABS: HEMATOCRIT 37.6 % (42.0-52.0); HEMOGLOBIN 11.6 g/dl (13.5-17.5); MEAN CORPUSCULAR HEMOGLOBIN 25.6 pg (27.0-33.0); MEAN CORPUSCULAR HGB CONC 30.9 g/dl (32.0-36.5); MEAN CORPUSCULAR VOLUME 82.8 fl (80.0-96.0); PLATELET COUNT, AUTOMATED 252 10^3/uL (150-450); RED BLOOD COUNT 4.54 10^6/uL (4.30-6.10); WHITE BLOOD COUNT 12.7 10^3/uL (4.0-10.0)
[2020-02-04 05:39] LABS: CALCIUM LEVEL 8.6 MG/DL (8.8-10.2); CREATININE FOR GFR 1.39 MG/DL (0.70-1.30); GLOMERULAR FILTRATION RATE 52.9 (>42); POTASSIUM SERUM 4.7 MEQ/L (3.5-5.1)
[2020-02-04] MEDS: TIOTROPIUM INHALER/CAPSULE (SPIRIVA) INH SCH (07:30)
[2020-02-04] MEDS: ADVAIR HFA 230/21MCG INHALER INH SCH ×2 (07:30→20:01)
--- NOTE | 2020-02-04 08:34 | IPNPDOC ---
Text Note Date of Service The patient was seen on 02/04/20. NOTE Vascular Surgery Dr Hampton. The pt is awake, no voice concerns, denies lower extremity pain. Denies groin pain. The patient is status post right lower extremity angiogram as per Dr. Hampton 02/03/20 with angioplasty/stent of the right superficial femoral, p roximal popliteal, angioplasty SERVANDO. The left foot appears unchanged from yesterday, mottling of the midfoot and toes, the toes remained purplish. He is able to move the toes. The left groin is nontender, no bleeding. GFR 52.9 this morning. The patient is on Eliquis/aspirin 325 mg/statin. Plavix has been discontinued for now. As far as outpatient, at minimum it was recommended to see the patient in 1 month with a repeat arterial duplex, although it would be nice to see him at a week outpatient just to see how his left lower extremity perfusion is doing. Dr. Hampton discussed this with his family, but we understand it is hard for them to get him to appointments. At the very minimum, we really want to see him in a month with a repeat arterial duplex and it has been stressed to them that surveillance is extremely important. Because the perfusion in the left lower extremity has improved somewhat with anticoagulation, it is not felt urgent amputation is needed and we are hopeful that he will continue to improve. Continue to follow. VS,Jamesbone, I+O VS, Fishbone, I+O Laboratory Tests 02/04/20 04:48 Vital Signs Date Time Temp Pulse Resp B/P (MAP) Pulse Ox O2 Delivery O2 Flow Rate FiO2 02/04/20 08:17 3.0 02/04/20 04:00 98.2 85 20 127/63 (84) 95 Nasal Cannula I&O- Last 24 Hours up to 6 AM 02/04/20 05:59 Intake Total 1942 ml Output Total 400 ml Balance 1542 ml Shonna Valenzuela Feb 04, 2020 08:34
[2020-02-04] MEDS ORDERED: NS 500 ML IV ONE (09:30)
[2020-02-04] MEDS: FLUoxetine 10 MG CAP PO SCH (09:36)
[2020-02-04] MEDS: ASPIRIN 325 MG TAB PO SCH (09:36)
[2020-02-04] MEDS: APIXABAN 5 MG TAB (ELIQUIS) PO SCH ×2 (09:37→21:08)
[2020-02-04] MEDS: MAGNESIUM OXIDE 400 MG TAB (MAG-OX) PO SCH (09:38)
[2020-02-04] MEDS: OMEPRAZOLE 20 MG CAP PO SCH ×2 (09:38→21:08)
[2020-02-04] MEDS: HumaLOG INSULIN (NovoLOG) PER UNIT SC SCH ×4 (09:39→21:00)
--- NOTE | 2020-02-04 10:28 | IPNPDOC ---
Text Note Date of Service The patient was seen on 02/04/20. NOTE Patient was seen and examined this morning. He was well oriented to time, place and person, he had an arteriogram done yesterday and he tolerated that well and his kidney function also stable PHYSICAL EXAMINATION: General: The patient is awake, alert, oriented x3, sitting up in the bed in no apparent distress. Head and Neck Exam: Extraocular muscles intact. Pupils equally round and reactive to light. Mucous membranes are moist. Neck is supple. There is no jugular venous distention (JVD). Cardiovascular: S1 and S2, regular rate. Trace edema of the bilateral lower extremities. Respiratory: No rhonchi, no rales, no wheezing. Abdomen: Soft. Positive bowel sounds. Nontender. No organomegaly. Genitourinary: Deferred, Musculoskeletal: Clubbing of the fingernails, left foot is cooler than the right foot. Peripheral pulses were not been able to be appreciated in the left foot. Purple discoloration noted in the lateral side of the foot including the toes Central Nervous System (STEEL SHOT HEADER OPERATOR): No focal deficit. Power is 5/5 in all extremities. Assessment and plan Mr. Alberto is a 75-year-old male, history of coronary artery disease, status post several stents, peripheral vascular disease status post lower left extremity stent, diabetes mellitus type 2, hypertension, diastolic heart failure who comes to [facility] initially for hypotension and was found to have arterial occlusions. Vascular surgery the patient and the patient is status post arteriogram of the right lower extremity on 02/03/20. . He had right superficial femoral artery, paroxysmal popliteal artery arteriograms done with some taoism of the circulation. His kidney function also has been stable 1. Occlusion of distal SFA stent and proximal posterior tibial artery of the left leg along with severe right lower extremity peripheral vascular disease. Left toe is purplish/bluish and cold. Imaging demonstrates occlusion with reconstitution of infrapopliteal vessels. Also very poor flow in the right lower extremity as well. Vascular surgery consulted, and an arteriogram where he had right superficial femoral artery, paroxysmal popliteal artery arteriograms done with some taoism of the circulation. I had a detailed discussion with vascular and the patient's heparin drip has been changed to Eliquis. 2. Hypovolemic hyponatremia. Improved after slow volume resuscitation. Currently, the patient's sodium is 131. Continue holding the diuretics. Normal sinus decreased to 50 mL as the patient has a mild bibasilar crackles today. 3. Hyperkalemia. Resolved. Continue to monitor 4. Acute renal injury: Improving. Close to baseline now. Until IV fluids. 5. Hypotension. Resolved. Holding all antihypertensives and nitrates 6. Heart failure with preserved ejection fraction. He recently had an echocardiogram on 10/20/2019. Demonstrated an EF of 65%. . He is hypovolemic. Will keep an eye on the volume status. Currently holding his diuretics 7. History of CAD status post multiple stents. Due to his hypotension. We will hold his Imdur and as on beta yazmin and jaclyn. Continue aspirin and statin. 8. History of peripheral vascular disease. Continue aspirin and Plavix DC'd as Ann has been admitted 9. COPD Stable. Continue inhalers. 10. Diabetes mellitus : Diabetic diet. Continue insulin. 11. Hypoglycemia. Resolved. Likely secondary to iatrogenic insulin in presence of AK I. We will hold long-acting insulin DVT prophylaxis. Disposition : Her discussion with him regarding disposition. He does not want to go to any subacute and wants to return home. At her discussion with his family. VS,Jamesbone, I+O VS, Jamesbone, I+O Laboratory Tests 02/04/20 04:48 Vital Signs Date Time Temp Pulse Resp B/P (MAP) Pulse Ox O2 Delivery O2 Flow Rate FiO2 02/04/20 09:33 126 90/60 (70) 02/04/20 08:17 3.0 02/04/20 08:00 98.4 18 98 Nasal Cannula I&O- Last 24 Hours up to 6 AM 02/04/20 06:00 Intake Total 1042 ml Output Total 400 ml Balance 642 ml HILTON JOHN MD Feb 04, 2020 10:28
[2020-02-04] MEDS ORDERED: METOPROLOL TART 25 MG TABLET PO ONE ×2 (11:30)
[2020-02-04 11:53] LABS: MAGNESIUM LEVEL 2.4 MG/DL (1.8-2.4)
[2020-02-04] MEDS ORDERED: SLF 3 ML SYR IV PRN (18:15)
[2020-02-04] MEDS: ROSUVASTATIN 10 MG TAB (CRESTOR) PO SCH (21:08)
[2020-02-04] MEDS: LEVEMIR (INSULIN DETEMIR) 1 UNITS/0.01ML SC SCH (21:09)
[2020-02-04] MEDS: SLF 3 ML SYR IV SCH (21:09)
[2020-02-05] VITALS: BP 153/72
[2020-02-05 04:00] VITALS: BP 122/57
[2020-02-05 05:37] LABS: HEMATOCRIT 32.6 % (42.0-52.0); HEMOGLOBIN 10.1 g/dl (13.5-17.5); MEAN CORPUSCULAR HEMOGLOBIN 25.8 pg (27.0-33.0); MEAN CORPUSCULAR VOLUME 83.2 fl (80.0-96.0); PLATELET COUNT, AUTOMATED 183 10^3/uL (150-450); RED BLOOD COUNT 3.92 10^6/uL (4.30-6.10); WHITE BLOOD COUNT 13.4 10^3/uL (4.0-10.0)
--- NOTE | 2020-02-05 06:03 | ECGEPIP ---
[facility] Test Date: 2020-02-04 Pat Name: CARTER DE LA ROSA Department: Room: [place] [address] Gender: Male Treatment Coordinator: KOLBY : 1945 Requested By: HILTON Hatfield Order Number: [id number] Reading MD: Stephan Villarreal Measurements Intervals [place] Rate: 116 P: MN: 0 QRS: 56 QRSD: 96 T: 42 QT: 325 QTc: 451 Interpretive Statements Atrial flutter/fibrillation with rapid ventricular response Low QRS complex voltage in the limb leads Frontal axis indeterminate Incomplete right bundle branch block Nonspecific ST-T wave abnormalities Persistent S wave in lateral anterior leads Pulmonary disease Compared to prior tracing of 02/01/2020 and multiple other prior tracings, atrial arrhythmia is new Electronically Signed on 02-05-2020 6:03:09 EDT by Stephan Villarreal
[2020-02-05] MEDS: SLF 3 ML SYR IV SCH ×3 (06:04→22:20)
[2020-02-05] MEDS: HumaLOG INSULIN (NovoLOG) PER UNIT SC SCH ×4 (06:31→20:39)
[2020-02-05] MEDS: TIOTROPIUM INHALER/CAPSULE (SPIRIVA) INH SCH (07:20)
[2020-02-05] MEDS: ADVAIR HFA 230/21MCG INHALER INH SCH ×2 (07:20→20:00)
[2020-02-05 08:00] VITALS: BP 107/59
--- NOTE | 2020-02-05 08:45 | IPNPDOC ---
Date Seen The patient was seen on 02/05/20. Progress Note Patient seen and examined. His left groin access site is well-healed. No bruising noted. His right lower extremity has marked improvement and perfusion status post endovascular intervention. His foot is hot with biphasic signals. On the left, were pleased that his foot is quite warm as well. He has some dramatic improvement in the discoloration from the mid foot to the toes over the past few days with heparin and now conversion to eliquis. He has some changes to the left first toe, including a few spots of dry gangrene and chronic ischemic changes, that may necessitate eventual amputation of the first toe or ray amputation, and I would recommend a podiatry consult for options. I think it would be worthwhile to obtain a new arterial duplex and the next day or 2 to get a new baseline for the patient now that his perfusion is better bilaterally. From there, we can decide if any further intervention would be helpful. Overall, were pleased with his progress. It is possible that some of the tissue will continue to improve in the left foot, and a very minimum we are at least out of the forrest at this point for left lower extremity amputation. I discussed this with the patient and he is pleased to hear this. He has walked a few steps with physical therapy and says his left leg was holding weight for him, which is great. He said the rate limiting step for him was the breathing. He got very short of breath and could not walk very far but he said his leg was okay. This is also very encouraging if his motor and sensory function are returning. We will continue to follow. Continue aspirin and anticoagulation. We appreciate the opportunity to participate in the care of this patient. VS, I&O, 24H, Fishbone Vital Signs/I&O Vital Signs Date Time Temp Pulse Resp B/P (MAP) Pulse Ox O2 Delivery O2 Flow Rate FiO2 02/05/20 08:00 97.3 71 18 107/59 (75) 99 Nasal Cannula 3.0 I&O- Last 24 Hours up to 6 AM 02/05/20 06:00 Intake Total 3210 ml Output Total 0 ml Balance 3210 ml Laboratory Data 24H LABS Laboratory Tests 2 02/04/20 11:39: Bedside Glucose (Misc Panel) 189H 02/04/20 16:51: Bedside Glucose (Misc Panel) 146H 02/04/20 21:02: Bedside Glucose (Misc Panel) 148H 02/05/20 05:33: Nucleated Red Blood Cells % (auto) 0.3H 02/05/20 06:29: Bedside Glucose (Misc Panel) 88 CBC/BMP Laboratory Tests 02/05/20 05:33 Microbiology Microbiology 02/01/20 Blood Culture - Preliminary, Resulted No Growth after 72 hours. All specime... 02/01/20 Blood Culture - Preliminary, Resulted No Growth after 72 hours. All specime... ANA PETER MD Feb 05, 2020 08:45
[2020-02-05] MEDS: MAGNESIUM OXIDE 400 MG TAB (MAG-OX) PO SCH (09:40)
[2020-02-05] MEDS: ASPIRIN 325 MG TAB PO SCH (09:40)
[2020-02-05] MEDS: FLUoxetine 10 MG CAP PO SCH (09:40)
[2020-02-05] MEDS: OMEPRAZOLE 20 MG CAP PO SCH ×2 (09:40→21:12)
[2020-02-05] MEDS: APIXABAN 5 MG TAB (ELIQUIS) PO SCH ×2 (09:40→21:12)
--- NOTE | 2020-02-05 12:01 | IPNPDOC ---
Text Note Date of Service The patient was seen on 02/05/20. NOTE Patient was seen and examined this morning. He was well oriented to time, place and person. He is doing much better and participating in physical therapy. PHYSICAL EXAMINATION: General: The patient is awake, alert, oriented x3, sitting up in the bed in no apparent distress. Head and Neck Exam: Extraocular muscles intact. Pupils equally round and reactive to light. Mucous membranes are moist. Neck is supple. There is no jugular venous distention (JVD). Cardiovascular: S1 and S2, regular rate. Trace edema of the bilateral lower extremities. Respiratory: No rhonchi, no rales, no wheezing. Abdomen: Soft. Positive bowel sounds. Nontender. No organomegaly. Genitourinary: Deferred, Musculoskeletal: Clubbing of the fingernails, Peripheral pulses were not been able to be appreciated in the left foot. Purple discoloration noted in the lateral side of the foot including the toes Central Nervous System (SU[employer]): No focal deficit. Power is 5/5 in all extremiti es. Assessment and plan Mr. Alberto is a 75-year-old male, history of coronary artery disease, status post several stents, peripheral vascular disease status post lower left extremity stent, diabetes mellitus type 2, hypertension, diastolic heart failure who comes to [facility] initially for hypotension and was found to have arterial occlusions. Vascular surgery the patient and the patient is status post arteriogram of the right lower extremity on 02/03/20. . He had right superficial femoral artery, paroxysmal popliteal artery arteriograms done with some yazidism of the circulation. His kidney function also has been stable 1. Occlusion of distal SFA stent and proximal posterior tibial artery of the left leg along with severe right lower extremity peripheral vascular disease. Left toe is purplish/bluish and cold. Imaging demonstrates occlusion with reconstitution of infrapopliteal vessels. Also very poor flow in the right lower extremity as well. Vascular surgery consulted, and an arteriogram where he had right superficial femoral artery, paroxysmal popliteal artery arteriograms done with some yazidism of the circulation. I had a detailed discussion with vascular and the patient's heparin drip has been changed to Eliquis which he is tolerating well. Plan is discharge on aspirin and Eliquis 2. Hypovolemic hyponatremia. Resolved after slow volume resuscitation. Continue holding the diuretics. 3. Hyperkalemia. Resolved. Continue to monitor 4. Acute renal injury: Improving. Close to baseline now. Until IV fluids. 5. Hypotension. Resolved. Holding all antihypertensives and nitrates 6. Heart failure with preserved ejection fraction. He recently had an echocardiogram on 10/20/2019. Demonstrated an EF of 65%. . He is hypovolemic. Will keep an eye on the volume status. Currently holding his diuretics 7. History of CAD status post multiple stents. Due to his hypotension. We will hold his Imdur and as on beta yazmin and jaclyn. Continue aspirin and statin. 8. History of peripheral vascular disease. Continue aspirin and Plavix DC'd as Eliquis has been started 9. COPD Stable. Continue inhalers. 10. Diabetes mellitus : Diabetic diet. Continue insulin. 11. Hypoglycemia. Resolved. Likely secondary to iatrogenic insulin in presence of AK I. We will hold long-acting insulin DVT prophylaxis. Disposition : Her discussion with him regarding disposition. He does not want to go to any subacute and wants to return home. At her discussion with his family. PT, OT working with him and hopefully the patient will be discharged home tomorrow VS,Jose, I+O VS, Jose, I+O Laboratory Tests 02/05/20 05:33 Vital Signs Date Time Temp Pulse Resp B/P (MAP) Pulse Ox O2 Delivery O2 Flow Rate FiO2 02/05/20 08:00 3.0 02/05/20 08:00 97.3 71 18 107/59 (75) 99 Nasal Cannula I&O- Last 24 Hours up to 6 AM 02/05/20 05:59 Intake Total 3210 ml Output Total 0 ml Balance 3210 ml HILTON JOHN MD Feb 05, 2020 12:01
[2020-02-05 12:08] LABS: CALCIUM LEVEL 8.6 MG/DL (8.8-10.2); CREATININE FOR GFR 1.36 MG/DL (0.70-1.30); GLOMERULAR FILTRATION RATE 54.2 (>42); POTASSIUM SERUM 4.4 MEQ/L (3.5-5.1)
--- NOTE | 2020-02-05 13:55 | REPVR ---
PROCEDURE INFORMATION: Exam: US Duplex Lower Extremity Arteries Or Arterial Bypass Grafts Exam date and time: 02/05/2020 11:45 AM Age: 75 years old Clinical indication: Condition or disease; Peripheral vascular disease; Prior surgery; Surgery date: Post-operative (0-2 days); Surgery type: Rle angioplasty; Additional info: Pad, re asses perfusion bles TECHNIQUE: Imaging protocol: Real-time ultrasound scan of the arteries of the bilateral lower extremities with 2-D jackson scale, color Doppler flow and spectral waveform analysis. Images documented and saved. COMPARISON: US UNI LOW EXTREM ARTERIAL LIMIT 02/01/2020 6:26 PM FINDINGS: Right common femoral artery: 164.1-152.5 cm/sec, triphasic/biphasic. Right profunda femoris artery: Right proximal profunda femoris artery: 259.5 cm/sec, biphasic. Right superficial femoral artery: Proximal SFA stent 149.9 cm/sec, biphasic. Mid SFA stent 77.5 cm/sec, biphasic. Distal SFA stent 81.6 cm/sec, biphasic. Right popliteal artery: Proximal popliteal stent 68.8 cm/sec, biphasic. Distal popliteal 70.0 cm/sec, biphasic. Right calf/foot arteries: Tibioperoneal trunk 113.8 cm/sec, biphasic. Proximal SERVANDO 0 cm/sec. Mid SERVANDO 0 cm/sec. Distal SERVANDO 7.7 cm/sec (antegrade; this portion of the vessel is retrograde prior to a collateral). Proximal [employer]OR [employer]NERSHIPS 129.8 cm/sec, biphasic. Distal [employer] 83.0 cm/sec (extensive calcifications), biphasic. Right ankle brachial index: SERVANDO 1.0. [employer] 1.14. Left common femoral artery: 44.5 cm/sec, triphasic. Left profunda femoris artery: Left proximal profunda femoris artery: 134.7 cm/sec, biphasic. Left superficial femoral artery: Proximal SFA 41.0 cm/sec, biphasic. Mid-distal SFA (stent) 0 cm/sec. A collateral derived from this segment demonstrates antegrade monophasic flow at 15.5 cm/sec. Left popliteal artery: Proximal popliteal retrograde prior to collateral, subsequently antegrade, monophasic, 59.1 cm/sec, spectral broadening. Distal popliteal 28.2 cm/sec, monophasic. Left calf/foot arteries: Tibioperoneal trunk 54.5 cm/sec, monophasic. Proximal SERVANDO 9.8 cm/sec, monophasic. Mid SERVANDO cm/sec. Distal SERVANDO 15.2 cm/sec, monophasic. Proximal [employer] occlusion, subsequently retrograde, subsequently antegrade and 11.9 cm/sec, spectral broadening . Left ankle brachial index: SERVANDO 0.56. [employer] 0.61. IMPRESSION: 1. Right anterior tibial artery occlusion with distal reconstitution. 2. Possible right profundus femoris artery stenosis. 3. Occluded mid-distal left SFA stent. 4. Occluded proximal right posterior tibial artery with distal reconstitution. 5. Abnormal ankle brachial indices and peripheral monophasic waveforms left lower extremity consistent with peripheral arterial disease. Electronically signed by: Leo Healy On 02/05/2020 13:54:49 PM
[2020-02-05 16:00] VITALS: BP 120/58
--- NOTE | 2020-02-05 17:01 | IPNPDOC ---
Date Seen The patient was seen on 02/05/20. Progress Note I reviewed the patient's arterial duplex from today. His slow in the left lower extremity is better than expected. He has an SEAN on the left of 0.6. He does have distal SFA popliteal stent occlusion still, but the collateral circulation down to the distal tibial vessels, which correlates with her physical exam at this time. The foot is warm with good capillary refill. Despite his left first toe still being at risk, the rest of the foot seems to be improving daily. We will see how the first toe does, and he may need podiatry to take a look as well. With the right lower extremity, the report says that the patient has occlusion of the anterior tibial and posterior tibial artery, but the imaging shows that the vessels are patent with flow in both the anterior tibial and posterior tibial artery. This correlates to our recent arteriogram postintervention. This also correlates to the right SEAN of 1.1. We are pleased with his postintervention perfusion on the right. For now, I believe watchful waiting of the left foot is prudent, although it is possible we can revisit the idea of intervention either later on this admission or as an outpatient depending on his progress. Further recommendations to follow as appropriate. VS, I&O, 24H, Fishbone Vital Signs/I&O Vital Signs Date Time Temp Pulse Resp B/P (MAP) Pulse Ox O2 Delivery O2 Flow Rate FiO2 02/05/20 16:00 97.6 81 18 120/58 (78) 99 Nasal Cannula 3.0 I&O- Last 24 Hours up to 6 AM 02/05/20 05:59 Intake Total 3210 ml Output Total 0 ml Balance 3210 ml Laboratory Data 24H LABS Laboratory Tests 2 02/04/20 21:02: Bedside Glucose (Misc Panel) 148H 02/05/20 05:33: Nucleated Red Blood Cells % (auto) 0.3H 02/05/20 06:29: Bedside Glucose (Misc Panel) 88 02/05/20 11:23: Anion Gap 4L, Glomerular Filtration Rate 54.2, Calcium Level 8.6L 02/05/20 11:36: Bedside Glucose (Misc Panel) 82L CBC/BMP Laboratory Tests 02/05/20 05:33 02/05/20 11:23 Microbiology Microbiology 02/01/20 Blood Culture - Preliminary, Resulted No Growth after 72 hours. All specime... 02/01/20 Blood Culture - Preliminary, Resulted No Growth after 72 hours. All specime... ANA PETER MD Feb 05, 2020 17:01
[2020-02-05 20:00] VITALS: BP 106/55
[2020-02-05] MEDS: ROSUVASTATIN 10 MG TAB (CRESTOR) PO SCH (21:12)
[2020-02-05] MEDS: LEVEMIR (INSULIN DETEMIR) 1 UNITS/0.01ML SC SCH (21:13)
[2020-02-06] VITALS: BP 137/60
[2020-02-06 04:00] VITALS: BP 136/68
[2020-02-06] MEDS: SLF 3 ML SYR IV SCH ×2 (04:28→14:29)
[2020-02-06 06:10] LABS: HEMATOCRIT 30.1 % (42.0-52.0); HEMOGLOBIN 9.4 g/dl (13.5-17.5); MEAN CORPUSCULAR HEMOGLOBIN 26.3 pg (27.0-33.0); MEAN CORPUSCULAR HGB CONC 31.2 g/dl (32.0-36.5); MEAN CORPUSCULAR VOLUME 84.3 fl (80.0-96.0); PLATELET COUNT, AUTOMATED 195 10^3/uL (150-450); RED BLOOD COUNT 3.57 10^6/uL (4.30-6.10); WHITE BLOOD COUNT 10.8 10^3/uL (4.0-10.0)
[2020-02-06] MEDS: HumaLOG INSULIN (NovoLOG) PER UNIT SC SCH ×2 (07:30→13:22)
[2020-02-06 08:00] VITALS: BP 130/55
[2020-02-06] MEDS: TIOTROPIUM INHALER/CAPSULE (SPIRIVA) INH SCH (08:02)
[2020-02-06] MEDS: ADVAIR HFA 230/21MCG INHALER INH SCH (08:02)
[2020-02-06] MEDS: OMEPRAZOLE 20 MG CAP PO SCH (08:47)
[2020-02-06] MEDS: MAGNESIUM OXIDE 400 MG TAB (MAG-OX) PO SCH (08:47)
[2020-02-06] MEDS: ASPIRIN 325 MG TAB PO SCH (08:47)
[2020-02-06] MEDS: FLUoxetine 10 MG CAP PO SCH (08:47)
[2020-02-06] MEDS: APIXABAN 5 MG TAB (ELIQUIS) PO SCH (08:47)
--- NOTE | 2020-02-06 09:10 | IPNPDOC ---
Text Note Date of Service The patient was seen on 02/06/20. NOTE Vascular Surgery Dr Hampton. Patient seen and examined. His right lower extremity has marked improvement and perfusion status post endovascular intervention. His foot is warm with biphasic signals. On the left, his foot is quite warm as well, with improvement in the di scoloration from the mid foot to the toes over the past few days with heparin and now conversion to eliquis. Dr Hampton has reviewed the patient's arterial duplex from 02/05/20. His flow in the left lower extremity was better than expected. He has an SEAN on the left of 0.6. He does have distal SFA popliteal stent occlusion still, but the collateral circulation down to the distal tibial vessels, which correlates with her physical exam at this time. The foot is warm. Despite his left first toe still being at risk, the rest of the foot seems to be improving daily. We will see how the first toe does, and he may need podiatry to take a look as well. With the right lower extremity, the report says that the patient has occlusion of the anterior tibial and posterior tibial artery, but the imaging shows that the vessels are patent with flow in both the anterior tibial and posterior tibial artery. This correlates to our recent arteriogram postintervention. This also correlates to the right SEAN of 1.1. We are pleased with his postintervention perfusion on the right. For now, I believe watchful waiting of the left foot is prudent, although it is possible we can revisit the idea of intervention either later on this admission or as an outpatient depending on his progress. It is possible that some of the tissue will continue to improve in the left foot. He has walked a few steps with physical therapy and says his left leg was holding weight for him. We will continue to follow. Continue aspirin and anticoagulation. We appreciate the opportunity to participate in the care of this patient. VS,Amarie, I+O VS, Jamesbone, I+O Laboratory Tests 02/05/20 11:23 02/06/20 05:19 Vital Signs Date Time Temp Pulse Resp B/P (MAP) Pulse Ox O2 Delivery O2 Flow Rate FiO2 02/06/20 08:00 98.5 76 18 130/55 (80) 1 Nasal Cannula 3.0 I&O- Last 24 Hours up to 6 AM 02/06/20 06:00 Intake Total 540 ml Output Total 850 ml Balance -310 ml Shonna Valenzuela Feb 06, 2020 09:10
[2020-02-06] MEDS ORDERED: ELIQ5TAB PO (11:18)
[2020-02-06] MEDS ORDERED: TORS20TA2 PO (11:18)
[2020-02-06] MEDS ORDERED: ISOS60TA2 PO (11:18)
--- NOTE | 2020-02-06 11:21 | DS.PDOC ---
Discharge Summary General Date of Admission Feb 01, 2020 at 15:23 Date of Discharge 02/06/20 Discharge Summary Chief complaints: Acute on chronic bilateral lower extremity ischemic changes Final diagnosis Severe peripheral vascular disease Hyponatremia AK I History of present illness and Hospital course This is a very pleasant 75-year-old gentleman with long-standing end-stage bilateral lower extremity peripheral vascular disease, says he developed sensory changes and temperature changes in the left and right lower extremity, the left greater than right. He says the left leg is also become increasingly weak and it has been difficult to ambulate. He was at a facility about a week ago with a COPD exacerbation, and says he had multiple falls. He said first he fell on the right side and has extensive bruising on his right hip thigh and knee, and then also on the left side and he has a big bruise on the left knee with a skin tear as well. He also has some bruising on the left thigh. He says since that time, the temperature change in his feet has gotten progressively colder, and his ability to bear weight and his motor skills have diminished. He left AMA from that admission. He returned to the ER today with complaints of hypotension, and was found to be intravascularly very dry, with acute on chronic renal insufficiency, and worsening discoloration and ischemia of the bilateral lower extremities. He initially had an arterial duplex of the left lower extremity, which showed changes from his last arterial duplex. In April 2018, the patient had an arteriogram of the left lower extremity where, it was decent inflow through the iliac and proximal SFA, with chronic heavy atherosclerotic plaque and occlusion of the mid distal SFA to the mid popliteal artery, collateral circulation down to the popliteal artery below this, with single- vessel runoff to the foot through the peroneal artery. This collateralized to the anterior tibial artery distally in the dorsal pedis artery. There was no in- line flow through the posterior tibial artery her anterior tibial artery. He then had a revascularization with angioplasty and stenting of the SFA and proximal popliteal artery providing in-line flow to the foot through single- vessel tibial runoff. Probably as per vascular over the last 2 years, the stent slowly started to occlude and since the patient was lost to follow-up, he was unaware that this was happening. In the last week or 2 when he has had increasing hypotensive episodes the stent completely thrombosed creating a more acute on chronic vascular insufficiency in the left lower extremity. The left foot from the mid foot to the toes is purple bluish and mottled, appears both bruised and ischemic, but he can wiggle his toes and there is no wet or dry gangrene present. Vascular saw the patient and for Occlusion of distal SFA stent and proximal posterior tibial artery of the left leg along with severe right lower extremity peripheral vascular disease. As mentioned above Imaging demonstrates occlusion with reconstitution of infrapopliteal vessels. Also very poor flow in the right lower extremity as well. Vascular surgery consulted, and an arteriogram where he had right superficial femoral artery, paroxysmal popliteal artery arteriograms done with some gnosticism of the circulation. I had a detailed discussion with vascular and the patient's heparin drip has been changed to Eliquis which he is tolerating well. Plan is discharge on aspirin and Eliquis . Today His right lower extremity has marked improvement and perfusion status post endovascular intervention. His foot is warm with biphasic signals as per restless surgeries last documentation. On the left, his foot is quite warm as well, with improvement in the discoloration from the mid foot to the toes over the past few days with heparin and now conversion to eliquis on which he is being discharged. Dr Hampton has reviewed the patient's arterial duplex from 02/05/20. His flow in the left lower extremity was better than expected. He has an SEAN on the left of 0.6. He does have distal SFA popliteal stent occlusion still, but the collateral circulation down to the distal tibial vessels, which correlates with her physical exam at this time. The foot is warm. Despite his left first toe still being at risk, the rest of the foot seems to be improving daily. With the right lower extremity, the report says that the patient has occlusion of the anterior tibial and posterior tibial artery, but the imaging shows that the vessels are patent with flow in both the anterior tibial and posterior tibial artery. This correlates to our recent arteriogram postintervention. This also correlates to the right SEAN of 1.1. He will need to follow with vascular surgery as an outpatient. As per vascular surgery It is possible that some of the tissue will continue to improve in the left foot. He has walked a few steps with physical therapy and says his left leg was holding weight for him. Also with regards to his other medical problems. He has had an episode of hypoglycemia and his medications on discharge have been changed to only 30 of Levemir at night. He is to take 30 twice a day of Levemir. With only 30 of Levemir as well as sliding scale. His blood sugars have been in the 110s throughout the hospital stay for the last 1 week. He has been advised to keep on monitoring his blood sugars and maintain a log and his PCP can adjust his insulin at a later stage. He also is on sliding scale insulin and has been advised to do a CXR just local checks also. With regards to his heart medications. He has had a history of PCI, CAD and for that he has been on multiple medications. Given his acute renal failure. His medications have been changed his Aldactone has been discontinued and torsemide has been decreased only 20 mg daily. Continue simvastatin at 2.5 mg. He has been advised to talk to his PCP within 1-2 weeks to see if these medications need to be reevaluated and changed. His Plavix has been discontinued and he'll be continued on aspirin 325 and Eliquis 5 mg twice a day. In case he starts bruising or he has any bleeding episode. He has been advised to contact the vascular surgery's or come to the ER. He has been part is pending as physical therapy and was given an option of [facility], but he wants to go home. Maximal benefit from this inpatient stay has been opting and he is being discharged home today PHYSICAL EXAMINATION: General: The patient is awake, alert, oriented x3, sitting up in the bed in no apparent distress. Head and Neck Exam: Extraocular muscles intact. Pupils equally round and reactive to light. Mucous membranes are moist. Neck is supple. There is no jugular venous distention (JVD). Cardiovascular: S1 and S2, regular rate. Trace edema of the bilateral lower extremities. Respiratory: No rhonchi, no rales, no wheezing. Abdomen: Soft. Positive bowel sounds. Nontender. No organomegaly. Genitourinary: Deferred, Musculoskeletal: Clubbing of the fingernails, Peripheral pulses were not been able to be appreciated in the left foot. Purple discoloration noted in the lateral side of the foot including the toes Central Nervous System (DIRECTOR GRAPHICS): No focal deficit. Power is 5/5 in all extremities. Mediictations. As per discharge reconciliation medication list Torsemide decreased to 20 mg daily Spironolactone discontinued Levemir decreased to half the dose Eliquis admitted 5 twice a day Planus discontinued Activity as tolerated Diet. 2 g sodium diet Follow-up appointments. PCP in 1 week. Vascular in 1 week Condition on discharge. Patient is medically optimized for discharge Discharge disposition: Home Total time spent on this discharge including coordination of care, review of chart documentation and actual patient contact is around 50 minutes Vital Signs/I&Os Vital Signs Date Time Temp Pulse Resp B/P (MAP) Pulse Ox O2 Delivery O2 Flow Rate FiO2 02/06/20 08:00 3.0 02/06/20 08:00 98.5 76 18 130/55 (80) 1 Nasal Cannula I&O- Last 24 Hours up to 6 AM 02/06/20 05:59 Intake Total 540 ml Output Total 850 ml Balance -310 ml Laboratory Data Labs 24H Laboratory Tests 2 02/05/20 11:23: Anion Gap 4L, Glomerular Filtration Rate 54.2, Calcium Level 8.6L 02/05/20 11:36: Bedside Glucose (Misc Panel) 82L 02/05/20 17:01: Bedside Glucose (Misc Panel) 204H 02/05/20 19:22: Bedside Glucose (Misc Panel) 178H 02/06/20 05:19: Nucleated Red Blood Cells % (auto) 0.3H 02/06/20 08:00: Bedside Glucose (Misc Panel) 107 CBC/BMP Laboratory Tests 02/05/20 11:23 02/06/20 05:19 FSBS Laboratory Tests Test 02/05/20 11:36 02/05/20 17:01 02/05/20 19:22 02/06/20 08:00 Range/Units Bedside Glucose (Misc Panel) 82 204 178 107 83-110 MG/DL Microbiology Microbiology 02/01/20 Blood Culture - Preliminary, Resulted No Growth after 72 hours. All specime... 02/01/20 Blood Culture - Preliminary, Resulted No Growth after 72 hours. All specime... Discharge Medications Scheduled Apixaban (Eliquis) 5 Mg Tablet, 5 MG PO BID Aspirin (Aspirin) 325 Mg Tab, 325 MG PO DAILY, (Reported) Fluoxetine Hcl (Fluoxetine HCl) 10 Mg Capsule, 30 MG PO DAILY, (Reported) Insulin Aspart (Novolog Flexpen) 100 Unit/Ml Inj, 1 DOSE SC ACHS, (Reported) PER SLIDING SCALE Insulin Glargine,Hum.rec.anlog (Toukim Solostar) 300 Unit/Ml Inj, 30 UNIT SC DAILY, (Reported) Isosorbide Mononitrate (Isosorbide Mononitrate ER) 60 Mg Tab.er.24h, 30 MG PO DAILY Lisinopril (Lisinopril) 2.5 Mg Tab, 2.5 MG PO QHS, (Reported) Magnesium Oxide (Magnesium Oxide) 400 Mg Tab, 400 MG PO DAILY, (Reported) Metoprolol Tartrate (Metoprolol Tartrate) 25 Mg Tab, 12.5 MG PO QHS, (Reported) Omeprazole (Omeprazole) 20 Mg Tab, 20 MG PO BID, (Reported) Ranolazine (Ranexa) 1,000 Mg Tab.er.12h, 1,000 MG PO BID, (Reported) Rosuvastatin Calcium (Rosuvastatin Calcium) 40 Mg Tab, 40 MG PO QHS, (Reported) Salmeterol/Fluticasone (Advair 500-50 Diskus) 28 Puff/Inhaler Aerp, 1 PUFF INH BID, (Reported) Torsemide (Torsemide) 20 Mg Tablet, 20 MG PO BID @ 0900, 1700 Umeclidinium Turton (Incruse Ellipta) 62.5 Mcg/Inh Inh, 1 PUFF INH DAILY, (Reported) Scheduled PRN Acetaminophen (Mapap) 500 Mg Tablet, 1,000 MG PO Q6H PRN for PAIN, (Reported) Albuterol Sulf (Albuterol Sulfate) 2.5 Mg/3 Ml Vial.neb, 2.5 MG INH Q4HP PRN for SHORTNESS OF BREATH, (Reported) Albuterol Sulfate (Ventolin Hfa) 108 Mcg/Act Aer, 2 PUFF INH Q4H PRN for SHORT NESS OF BREATH, (Reported) Fluticasone Propionate (Fluticasone Propionate) 16 Gm Newberg.susp, 1 SPRAY NARES DAILY PRN for CONGESTION, (Reported) Nitroglycerin (Nitrostat) 0.4 Mg Subl, 0.4 MG SL NITRO PRN for CHEST PAIN, (Reported) Allergies Coded Allergies: Cephalosporins (Verified Allergy, Intermediate, RASH, 06/21/19) RASH PER Penicillins (Verified Allergy, Intermediate, RASH, 06/21/19) clavulanic acid (Verified Allergy, Intermediate, RASH, 06/21/19) levofloxacin (Verified Allergy, Intermediate, RASH, 06/21/19) HILTON JOHN MD Feb 06, 2020 11:21
[2020-02-06 12:00] VITALS: BP 130/60
--- NOTE | 2020-02-12 11:38 | IPN ---
DATE: 02/02/2020 SUBJECTIVE: Mr. Alberto is seen this morning at his bedside. He is feeling about the same and denies any nausea or vomiting. He has no dyspnea, chest pain, fever or chills. Pain in his left lower extremity is essentially unchanged. PHYSICAL EXAMINATION: GENERAL: He is awake and alert and without any acute distress. VITAL SIGNS: Temperature 96.4 degrees Fahrenheit, heart rate is 65 per minute and respiratory rate is 16 per minute. Blood pressure 107/57 mmHg and oxygen saturation 100% on three liters of oxygen. HEENT: Head is atraumatic. NECK: Supple and without JVD or thyroid enlargement. HEART: Heart sounds are regular. LUNGS: Clear to auscultation. ABDOMEN: Soft and nontender, bowel sounds are normal. EXTREMITIES: Without any cyanosis or clubbing. Left foot is colder than the right and the discoloration is essentially unchanged. There is no dry or wet gangrene at present. He does have some skin changes on the dorsum and lateral side of the foot. NEUROLOGIC: He is awake, alert and at his baseline mentation. LABORATORY DATA: Todays labs shows a sodium level of 125, potassium 4.5, BUN 57 and creatinine 2.64. Glucose was 55 this morning. A repeat sodium level was 127. PROBLEMS: 1. Hyponatremia. Sodium level has been fluctuating between 125 and 127. He still looks clinically dehydrated. I am going to increase his IV fluid of normal saline to 150 mL/hr. 2. Acute renal failure superimposed on chronic kidney disease. Slow improvement in kidney function. He has good urine output and we will increase his IV fluid to 150 mL/hr. Renal function is being monitored. There is no indication for dialysis. 3. Left lower extremity ischemia. The patient has already been seen by Vascular Surgery. He is still not medically stable for consideration of angiogram. Once his kidney function improves, hopefully then he can be cleared for angiogram and possible angioplasty. 4. Hypotension. Blood pressure seems to be slightly better. Will continue with aggressive IV fluid hydration. MTDD
--- NOTE | 2020-02-12 11:39 | IPN ---
DATE: 02/03/2020 SUBJECTIVE: Mr. Alberto is seen this morning on his bedside. He is feeling better today and denies any nausea, vomiting, dyspnea or chest pain. He has been receiving I.V. fluid and also taking orally. PHYSICAL EXAMINATION: VITALS: Temperature 97 degrees Fahrenheit, heart rate 74 per minute, respiratory rate 18 per minute, blood pressure 140/70 mmHg, and oxygen saturation 98%. INTAKE AND OUTPUT: From yesterday show a significant positive fluid balance of about 4 liters. HEENT: Head is atraumatic. NECK: Supple. JVD is not abnormally elevated. LUNGS: Clear to auscultation. HEART: Heart sounds are regular. ABDOMEN: Obese, soft and nontender. Bowel sounds are normal. EXTREMITIES: Without any cyanosis or clubbing. There is no peripheral edema. Left foot feels warmer than how it was yesterday and day before. Skin changes on the foot are about the same. NEUROLOGIC: He is awake, and able to answer questions. LABORATORY DATA: Todays labs show sodium 131, potassium 4.4, CO2 23, BUN 35, creatinine 1.89, glucose 163 and calcium 8.0. Albumin 2.4. WBC count 10.9, hemoglobin 10.3 and hematocrit 32. PROBLEMS: 1. Acute renal failure superimposed on chronic kidney disease: Kidney function has improved nicely and probably now close to his chronic baseline. His oral intake seems to be better and we will cut down the I.V. fluid. Hospitalist service has already cut down his I.V. fluid to 50 mL/hour, which is appropriate. 2. Hyponatremia: Sodium level is improved to 131 today. For the last couple of days, it has been fluctuating between 125 and 127. Yesterday, I.V. fluid was increased to 150 mL/hour and his sodium level improved. It remains to be seen how he does over the next couple of days. 3. Peripheral vascular disease with ischemia of left foot: Patient is going to require an angiogram and I have conveyed to vascular surgery that he is medically stable now to go ahead and schedule him for procedure in the next 24 to 48 hours. [facility]
--- NOTE | 2020-02-12 11:40 | IPN ---
DATE: 02/04/2020 SUBJECTIVE: Mr. Alberto is seen this morning on his bedside. He is currently receiving a fluid bolus as nursing staff reports that he became tachycardic and hypotensive earlier and hospitalist service ordered the fluid bolus. Patient denies any dyspnea, chest pain, nausea or vomiting. He underwent angioplasty of his right lower extremity yesterday and did have ballooning of superficial femoral and popliteal arteries. PHYSICAL EXAMINATION: VITAL SIGNS: Temperature 98.4 degrees Fahrenheit, heart rate 125 per minute, respiratory rate 18 per minute, blood pressure 110/65 mmHg and oxygen saturation 98%. HEENT: Head is atraumatic. NECK: Supple. JVD is not abnormally elevated. LUNGS: Clear to auscultation. HEART: Heart sounds are tachycardic. ABDOMEN: Soft and nontender. Bowel sounds are normal. EXTREMITIES: Without any cyanosis or clubbing. Left foot area of skin with discoloration is unchanged. NEUROLOGIC: He is awake and at his baseline mentation without a focal deficit. LABORATORY DATA: Todays labs show WBC 12.7, hemoglobin 11.6, hematocrit 37.6, platelets 252,000. Sodium 135, potassium 4.7, BUN 22, creatinine 1.39, glucose 138 and calcium 8.6. PROBLEMS: 1. Acute kidney injury superimposed on chronic kidney disease: Kidney function has improved nicely. He had an angioplasty procedure done yesterday with minimum dye and kidney function has improved despite that. He seems very well hydrated. 2. Hyponatremia: Sodium level has also improved up to 135 today, he is currently receiving a fluid bolus. 3. Hypotension and tachycardia: Etiology is uncertain. He did have a procedure yesterday and I am concerned about the possibility of bacteremia. I will defer any further workup and antibiotics to the hospitalist service. 4. Peripheral vascular disease: Patient did have angioplasty of his right lower extremity while he has an occluded stent in the left leg with leg foot ischemia. He is being followed by vascular surgery and they can make further decisions for intervention if needed. 5. From a renal standpoint: The patient is medically stable for any dye studies. [facility]
--- NOTE | 2020-02-12 11:41 | IPN ---
DATE: 02/05/2020 SUBJECTIVE: Mr. Alberto is seen today at his bedside. He is feeling a lot better today and more energetic. He feels that he can get up and walk. He denies any dyspnea or chest pain. He is currently laying in bed with his CPAP machine on. PHYSICAL EXAMINATION: GENERAL: The patient is awake and alert and without any acute distress. VITAL SIGNS: Temperature is 97.3 degrees Fahrenheit, heart rate is 70 per minute and respiratory rate is 18 per minute. Blood pressure is 107/59 mmHg and oxygen saturation 99% on 3 liters of oxygen. HEENT: His head is atraumatic. NECK: Supple and without JVD. HEART: Regular. LUNGS: Clear to auscultation. ABDOMEN: Soft and nontender. Bowel sounds are normal. EXTREMITIES: Without any cyanosis or clubbing. NEUROLOGIC: He is awake at his baseline mentation. LABORATORY DATA: Patient did not have new chemistries today. His WBC count is 13.4, hemoglobin 10.1 and hematocrit 32.6. Platelets 183,000. PROBLEMS: 1. Acute kidney injury superimposed on chronic kidney disease. His kidney function has already improved, I believe close to baseline. Yesterday, his creatinine was 1.39. His oral intake is adequate and he is not receiving any IV fluids. 2. Hyponatremia. His sodium level has also improved to 135 yesterday and there were no chemistries done today. 3. Peripheral vascular disease. Patient seems to be doing well and he will follow-up with Dr. Hampton for his left foot ischemia. He did have angioplasty of his right leg a couple of days ago. I will get a BNP today to insure stable kidney function following his angioplasty. 4. Disposition: From a renal standpoint, the patient is doing well and can be discharged anytime he is stable. He should follow-up in our clinic as an outpatient. RANDY
--- NOTE | 2020-02-13 11:02 | CR ---
DATE OF CONSULTATION: 02/03/2020 REASON FOR CONSULTATION: Acute renal failure, hyponatremia and hyperkalemia. HISTORY OF PRESENT ILLNESS: Mr. Alberto is a 75-year-old gentleman with known history of coronary artery disease, history of peripheral vascular disease with prior left lower extremity angioplasty and stent, history of type 2 diabetes, history of diastolic congestive heart failure and chronic kidney disease. He presented to the emergency room for not feeling well. Apparently, he has known history for occluded distal superficial femoral artery stent and left foot painful discoloration. He was admitted to [facility] from January 07 to January 22; however, he signed out against medical advice at that time. Now, he is admitted and seen by vascular surgery. He has history of frequent falls at home with multiple bruises on the back and both lower extremities. He is not felt to be safe for thrombolysis and intervention intravascularly due to risk of bleeding and acute kidney injury. His sodium level was 123 on admission and potassium is up to 5.8. His creatinine is 3.0. A nephrology consultation was requested this afternoon and the patient is seen this evening in the progressive care unit. PAST MEDICAL HISTORY: Significant for: 1. Longstanding type 2 diabetes. 2. Hypertension. 3. Diastolic congestive heart failure. 4. History of coronary artery disease, status post several angioplasties and stents. 5. History of peripheral vascular disease, status post left lower extremity angioplasty and stent. 6. History of morbid obesity. 7. History of obstructive sleep apnea. 8. History of chronic obstructive pulmonary disease (COPD). 9. Hyperlipidemia. 10. Depression. PAST SURGICAL HISTORY: Significant for: 1. Cholecystectomy. 2. Coronary angioplasty and stents. 3. Left lower extremity angioplasty with stent. MEDICATIONS: Home medications included: - Aspirin 325 mg daily - Plavix 75 mg daily - Fluoxetine 10 mg three tablets daily - Toujeo insulin 30 units in themorning and 60 units at night - NovoLog insulin per sliding scale - Imdur 60 mg daily - Lisinopril 2.5 mg daily - Magnesium oxide 400 mg daily - Metoprolol 25 mg half a tablet daily - Omeprazole 20 mg daily - Potassium chloride 20 mEq daily - Ranexa 1000 mg twice a day - Crestor 40 mg daily - Advair Diskus 500/50 one inhalation twice a day - Spironolactone 25 mg twice a day - Torsemide 40 mg twice a day - Tylenol as needed - Albuterol inhaler as needed - Nitroglycerin 0.4 mg as needed for chest pain ALLERGIES: Patient has allergies to PENICILLIN, CEPHALOSPORINS, LEVOTHYROXINE and CLAVULANIC ACID. PERSONAL AND SOCIAL HISTORY: The patient is a former smoker who quit about 30 years ago. He denies any alcohol or drug use. FAMILY HISTORY: Significant coronary artery disease and lung cancer. REVIEW OF SYSTEMS: The patient denies any fever or chills. Apparently, he has known history of peripheral vascular disease with occluded superficial femoral artery in his left lower leg where he had the stent. He is felt to have occluded stent now. He was here in the hospital from January 07 to January 22 and then he signed out against medical advice. He has history of frequent falls at home. He denies any loss of consciousness. Ears, Nose and Throat is unremarkable. Cardiovascular system is negative for dyspnea, chest pain or leg edema. Respiratory system is significant for COPD. He denies any hemoptysis or cough. GI system is significant for poor oral intake. He denies any vomiting or diarrhea. system is significant for decreased urine output. There is no history of flank pain or hematuria. Musculoskeletal system is significant for frequent falls with bruising on his back and lower extremities. He has significant pain in his left foot and difficulty ambulating. Skin has multiple bruises on back and lower extremities. Neurologically, he denies any loss of consciousness or seizures. Hematological system is significant for anticoagulation with heparin drip now. He was not on any long-term anticoagulation. PHYSICAL EXAMINATION: Patient is lying in the bed without any acute distress. Temperature 96.4 degrees Fahrenheit, heart is 70 per minute, respiratory rate 16 per minute. Blood pressure 112/68 mmHg and oxygen saturation 99%. Head is atraumatic. Ears, eyes, nose and throat are unremarkable. Pupils are equal and reactive to light, and sclerae are anicteric. Neck is supple and without JVD or thyroid enlargement. Oral mucosa is somewhat dry. Heart sounds are regular, and lungs clear to auscultation. Abdomen soft and nontender, and bowel sounds are normal. There is no palpable organomegaly. Extremities have no cyanosis or clubbing. Left foot has some ecchymosis and discoloration. There is no luna gangrene on the foot. His left lower extremity is colder than the right. Neurologically, he is awake and at his baseline mentation. LABORATORY DATA ON ADMISSION: Sodium 123 and potassium 5.4. BUN 59 and creatinine 2.92. Repeat labs showed sodium 124, potassium 5.8, BUN 63 and creatinine 3.0. Glucose 98 and calcium 8.7. Most recent sodium is 124, potassium 5.3, CO2 of 21, BUN 55, and creatinine 2.84. Glucose 95 and calcium 8. 3. WBC count 12.4, hemoglobin 12.7 and hematocrit 38.6. PROBLEMS: * Acute kidney injury superimposed on chronic kidney disease. Patient clinically looks dehydrated. I have already discussed the case with the admitting physician at the time of request of consultation. Patient is receiving IV normal saline 100 mL/hr, which is appropriate. We will continue to monitor his kidney function. I see a slight improvement already in a few hours. * Hyperkalemia. This is most likely related to acute kidney injury, and at home he was also on a potassium-sparing diuretic and LAMIN inhibitor. At this point, we should avoid LAMIN inhibitor, angiotensin receptor yazmin and all diuretics as patient is clinically dehydrated. I would not give him any medication for hyperkalemia as it is likely to improve with IV fluid hydration. * Hyponatremia. Most likely this is related to chronic diuretic use and dehydration. The patient is being hydrated with normal saline, which is appropriate. There is no emergent indication for hypertonic saline at present. We will recheck his electrolytes in the morning and then make further recommendations. * Peripheral vascular disease with ischemic left foot. Patient has already been seen by vascular surgery. As there is no gangrene, I do not see any emergent need for angiography. Once his kidney function is improved, then probably we can clear him for any vascular procedure. Thank you for involving me in the care of Mr. Alberto. I will follow him along with you. RANDY
== END 2020-02-06 16:17 | disposition home or self-care (01) | DRG 253 ==
LOC: M ED 11:44 → M PCU 15:23 → ENRESERV 15:33
PROVIDERS: ADMIT Internal Medicine; ATTEND Internal Medicine
PROC: 047K3DZ Dilation of Right Femoral Artery with Intraluminal Device, Percutaneous Approach (ICD-10-PCS; 2020-02-03)
PROC: 047M3DZ Dilation of Right Popliteal Artery with Intraluminal Device, Percutaneous Approach (ICD-10-PCS; 2020-02-03)
PROC: B40DYZZ Plain Radiography of Aorta and Bilateral Lower Extremity Arteries using Other Contrast (ICD-10-PCS; 2020-02-03)
PROC: 047P34Z Dilation of Right Anterior Tibial Artery with Drug-eluting Intraluminal Device, Percutaneous Approach (ICD-10-PCS; principal; 2020-02-03 15:30)
DX: T82.858A Stenosis of other vascular prosthetic devices, implants and grafts, initial encounter (principal); E87.1 Hypo-osmolality and hyponatremia; I50.32 Chronic diastolic (congestive) heart failure; I70.263 Atherosclerosis of native arteries of extremities with gangrene, bilateral legs; I11.0 Hypertensive heart disease with heart failure; Y83.1 Surgical operation with implant of artificial internal device as the cause of abnormal reaction of the patient, or of later complication, without mention of misadventure at the time of the procedure; E11.51 Type 2 diabetes mellitus with diabetic peripheral angiopathy without gangrene; E87.5 Hyperkalemia; G47.33 Obstructive sleep apnea (adult) (pediatric); E11.65 Type 2 diabetes mellitus with hyperglycemia; E66.01 Morbid (severe) obesity due to excess calories; Z87.891 Personal history of nicotine dependence; E11.649 Type 2 diabetes mellitus with hypoglycemia without coma; J44.9 Chronic obstructive pulmonary disease, unspecified; Z79.82 Long term (current) use of aspirin; Z79.02 Long term (current) use of antithrombotics/antiplatelets; Z79.4 Long term (current) use of insulin; Z79.899 Other long term (current) drug therapy; Z88.0 Allergy status to penicillin; Z88.1 Allergy status to other antibiotic agents; Z88.8 Allergy status to other drugs, medicaments and biological substances; Z99.81 Dependence on supplemental oxygen; Z95.5 Presence of coronary angioplasty implant and graft; Z90.49 Acquired absence of other specified parts of digestive tract; Z68.37 Body mass index [BMI] 37.0-37.9, adult

== ENCOUNTER 2020-02-18 11:51 | Inpatient (IN) | payer MEDICARE ==
[~2020-02-18] VITALS: Ht 172.7 cm; Wt 116.8 kg
[~2020-02-18 11:51] MED LIST changes: +ELIQ5TAB PO
[2020-02-18] MEDS ORDERED: COMBIVENT RESPIMAT 100-20MCG INHALER 4GM INH ONE (12:15)
[2020-02-18 12:47] LABS: ABG BASE EXCESS 5.1 (-2.0-2.0); ABG HCO3 28.6 MEQ/L (22.0-26.0); ABG O2 SATURATION 83.6 % (95.0-99.0); ABG PARTIAL PRESSURE CO2 38.1 mmHg (35.0-45.0); ABG STANDARD HCO3 28.8 MEQ/L (22.0-26.0); ABG TOTAL CO2 29.8 MEQ/L (23.0-31.0); ABG pH (ARTERIAL) 7.494 UNITS (7.350-7.450)
[2020-02-18 12:52] LABS: ABG PARTIAL PRESSURE O2 49.2 mmHg (75.0-100.0)
[2020-02-18 12:52] LABS: BASO # 0.1 10^3/uL (0.0-0.2); BASO % 0.6 % (0.0-1.0); EOS # 0.1 10^3/uL (0.0-0.5); EOS % 0.6 % (0.0-3.0); HEMATOCRIT 30.9 % (42.0-52.0); HEMOGLOBIN 9.3 g/dl (13.5-17.5); LYMPH # 0.7 10^3/uL (1.5-5.0); LYMPH % 7.6 % (24.0-44.0); MEAN CORPUSCULAR HEMOGLOBIN 25.8 pg (27.0-33.0); MEAN CORPUSCULAR HGB CONC 30.1 g/dl (32.0-36.5); MEAN CORPUSCULAR VOLUME 85.8 fl (80.0-96.0); MONO # 0.7 10^3/uL (0.0-0.8); MONO % 7.7 % (0.0-5.0); NEUTROPHILS # 7.1 10^3/uL (1.5-8.5); NEUTROPHILS % 82.7 % (36.0-66.0); PLATELET COUNT, AUTOMATED 232 10^3/uL (150-450); WHITE BLOOD COUNT 8.6 10^3/uL (4.0-10.0)
[2020-02-18 13:18] LABS: ALBUMIN 2.5 GM/DL (3.2-5.2); ALT/SGPT 9 U/L (12-78); BILIRUBIN,DIRECT 0.2 MG/DL (0.0-0.2); BILIRUBIN,TOTAL 0.6 MG/DL (0.2-1.0); BLOOD UREA NITROGEN 19 MG/DL (7-18); CALCIUM LEVEL 8.4 MG/DL (8.8-10.2); CARBON DIOXIDE LEVEL 32 MEQ/L (21-32); CHLORIDE LEVEL 98 MEQ/L (98-107); CK-MB VALUE MASS 1.5 NG/ML (<3.6); CPK CREATINE PHOSPHOKINASE 21 U/L (39-308); CREATININE FOR GFR 1.62 MG/DL (0.70-1.30); GLOMERULAR FILTRATION RATE 44.3 (>42); GLUCOSE, FASTING 193 MG/DL (70-100); MB/CK RELATIVE INDEX 7.14 (< OR =4); NT-PRO BNP 5903 PG/ML (<450); POTASSIUM SERUM 3.5 MEQ/L (3.5-5.1); SODIUM LEVEL 135 MEQ/L (136-145); TOTAL PROTEIN 5.9 GM/DL (6.4-8.2); TROPONIN I < 0.02 NG/ML (< 0.10)
[2020-02-18] MEDS ORDERED: ISOS60TA2 PO (14:12)
[2020-02-18] MEDS ORDERED: TORS20TA2 PO (14:12)
[2020-02-18] MEDS ORDERED: ELIQ5TAB PO (14:12)
--- NOTE | 2020-02-18 14:28 | REPVR ---
PROCEDURE INFORMATION: Exam: CT Chest Without Contrast Exam date and time: 02/18/2020 2:06 PM Age: 75 years old Clinical indication: Shortness of breath; Additional info: SOB, hypoxia TECHNIQUE: Imaging protocol: Computed tomography of the chest without contrast. 3D rendering (Not supervised by radiologist): MIP and/or 3D reconstructed images were created by the technologist. Radiation optimization: All CT scans at this facility use at least one of these dose optimization techniques: automated exposure control; mA and/or kV adjustment per patient size (includes targeted exams where dose is matched to clinical indication); or iterative reconstruction. COMPARISON: CT Chest without contrast 12/12/2019 9:16 PM FINDINGS: Limitations: Lack of intravenous contrast material limits evaluation of the vascular and visceral structures. Lungs: Consolidation in the dependent right lower lobe, due at least in part to atelectasis. Mild dependent left lower lobe atelectasis. Calcified pulmonary granulomas. Mild interstitial scarring in both lungs. Mild interstitial pulmonary edema. Pleural space: Moderate right and small left pleural effusions. Heart: Aortic valve calcification. Prominent coronary artery calcifications. Aorta: Moderate atherosclerotic calcification of the thoracic aorta. Lymph nodes: Mildly prominent mediastinal lymph nodes, measuring up to 16 mm in short axis dimension, essentially unchanged. Calcified left hilar lymph nodes are suggestive of prior granulomatous disease. Liver: Calcified hepatic granuloma. Spleen: Calcified splenic granuloma. Bones/joints: Mild bilateral glenohumeral joint DJD. Mild bilateral sternoclavicular joint DJD. Degenerative change of the spine. Chronic rib fractures. Soft tissues: Unremarkable. IMPRESSION: 1. Moderate right and small left pleural effusions. 2. Cardiomegaly and prominent coronary artery calcifications. 3. Consolidation in the right lower lobe, due at least in part atelectasis. Correlate clinically to exclude superimposed pneumonia. 4. Mild interstitial pulmonary edema and chronic interstitial scarring. 5. Unchanged mild mediastinal lymphadenopathy. Electronically signed by: Diya Mai On 02/18/2020 14:27:19 PM
[2020-02-18] MEDS ORDERED: MEROPENEM INJ 1 GM in IV 1 EA IV ONE (14:45)
[2020-02-18] MEDS ORDERED: FUROSEMIDE 40MG/4ML VIAL (J1940) IV ONE (14:45)
[2020-02-18] MEDS ORDERED: ALBUTEROL SULFATE 2.5 MG/0.5 ML INH NEB SOLN INH PRN (15:45)
[2020-02-18] MEDS ORDERED: GLUCAGON INJ 1MG VIAL SC PRN (15:45)
[2020-02-18] MEDS ORDERED: FLUTICASONE PROP 0.05% NASAL SPRAY 16 GM (FLONASE) NARES PRN (15:45)
[2020-02-18] MEDS ORDERED: ACETAMINOPHEN 500 MG TAB PO PRN (15:45)
[2020-02-18] MEDS ORDERED: DEXTROSE 50% 50 ML SYRINGE IV PRN (15:45)
[2020-02-18] MEDS ORDERED: GLUCOSE 4GM CHEW TABLET PO PRN (15:45)
[2020-02-18] MEDS ORDERED: NITROGLYCERIN 0.4 MG SUBL TABLET SL PRN (15:45)
[2020-02-18 16:23] LABS: FREE T3 2.2 PG/ML (2.2-4.0); FREE T4 0.98 NG/DL (0.76-1.46)
[2020-02-18 17:35] VITALS: BP 133/60
[2020-02-18] MEDS ORDERED: SLF 3 ML SYR IV PRN (18:15)
[2020-02-18] MEDS: HumaLOG INSULIN (NovoLOG) PER UNIT SC SCH ×2 (18:29→21:00)
--- NOTE | 2020-02-18 18:33 | ECGEPIP ---
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
[2020-02-18] MEDS: ADVAIR HFA 230/21MCG INHALER INH SCH (19:39)
--- NOTE | 2020-02-18 19:50 | HPEPDOC ---
General Date of Admission Feb 18, 2020 at 15:28 Date of Service: Feb 18, 2020 Attending Physician: ESTEE RUTHERFORD DO Chief Complaint The patient is a 75-year-old male admitted with a reason for visit of Chf Hypoxemia. Source: Patient Exam Limitations: No limitations History of Present Illness Mr. Alberto is a 75-year-old male with CAD status post several stents in 2017, PVD status post left lower extremity stent, diabetes mellitus type 2, and diastolic heart failure who came to the ED for dyspnea and congestion. He was recently he re in January for vascular occlusion. He has been doing better now, and his feet are normal colored. There are no longer purple. Earlier in the week, he wanted to have soup. He had some canned soup. Then 3 days ago he started having dyspnea, runny nose, and congestion. He went to the ED, and was found to be saturating between 86% to 92% on 3 L. Chronically is on 3 L due to COPD. They obtained a blood gas. PCO2 was not elevated, but the patient was hypoxic with a PO2 of 49.2. They obtain a CT of the chest which demonstrated moderate right and small left pleural effusion. In the ED he was given 40 mg of IV Lasix and 1 g of meropenem. Admission was called. When I went to see the patient, he is complaining of dyspnea which started about 3 days ago. He told me that he was noncompliant with his diet. He's been having a dry cough. He has not been able to bring up sputum. Otherwise has been denying any fever or chills, lightheadedness or dizziness, chest pain, abdominal pain, diarrhea, or dysuria. Home Medications Scheduled Apixaban (Eliquis) 5 Mg Tablet, 5 MG PO BID, (Reported) Aspirin (Aspirin) 325 Mg Tab, 325 MG PO DAILY, (Reported) Fluoxetine Hcl (Fluoxetine HCl) 10 Mg Capsule, 30 MG PO DAILY, (Reported) Insulin Aspart (Novolog Flexpen) 100 Unit/Ml Inj, 1 DOSE SC ACHS, (Reported) PER SLIDING SCALE Insulin Glargine,Hum.rec.anlog (Toujeo Solostar) 300 Unit/Ml Inj, 30 UNIT SC DAILY, (Reported) Isosorbide Mononitrate (Isosorbide Mononitrate ER) 60 Mg Tab.er.24h, 30 MG PO DAILY, (Reported) Lisinopril (Lisinopril) 2.5 Mg Tab, 2.5 MG PO QHS, (Reported) Magnesium Oxide (Magnesium Oxide) 400 Mg Tab, 400 MG PO DAILY, (Reported) Metoprolol Tartrate (Metoprolol Tartrate) 25 Mg Tab, 12.5 MG PO QHS, (Reported) Omeprazole (Omeprazole) 20 Mg Tab, 20 MG PO BID, (Reported) Ranolazine (Ranexa) 1,000 Mg Tab.er.12h, 1,000 MG PO BID, (Reported) Rosuvastatin Calcium (Rosuvastatin Calcium) 40 Mg Tab, 40 MG PO QHS, (Reported) Salmeterol/Fluticasone (Advair 500-50 Diskus) 28 Puff/Inhaler Aerp, 1 PUFF INH BID, (Reported) Torsemide (Torsemide) 20 Mg Tablet, 40 MG PO BID, (Reported) 0900/1700 Umeclidinium [place] (Incruse Ellipta) 62.5 Mcg/Inh Inh, 1 PUFF INH DAILY, (Reported) Scheduled PRN Acetaminophen (Mapap) 500 Mg Tablet, 1,000 MG PO Q6H PRN for PAIN, (Reported) Albuterol Sulf (Albuterol Sulfate) 2.5 Mg/3 Ml Vial.neb, 2.5 MG INH Q4HP PRN for SHORTNESS OF BREATH, (Reported) Albuterol Sulfate (Ventolin Hfa) 108 Mcg/Act Aer, 2 PUFF INH Q4H PRN for SHORTNESS OF BREATH, (Reported) Fluticasone Propionate (Fluticasone Propionate) 16 Gm [place].susp, 1 SPRAY NARES DAILY PRN for CONGESTION, (Reported) Nitroglycerin (Nitrostat) 0.4 Mg Subl, 0.4 MG SL NITRO PRN for CHEST PAIN, (Reported) Allergies Coded Allergies: Cephalosporins (Verified Allergy, Intermediate, RASH, 02/18/20) RASH PER Penicillins (Verified Allergy, Intermediate, RASH, 02/18/20) clavulanic acid (Verified Allergy, Intermediate, RASH, 02/18/20) levofloxacin (Verified Allergy, Intermediate, RASH, 02/18/20) Past Medical History Medical History 1. COPD (3L at home, follows with Dr. Sears) 2. diastolic CHF (LVEF 65%, 10/2019) 3. JAELYN on CPAP 4. HTN 5. IDDM2 6. CAD s/p several stents in 2017 7. PVD s/p LLE stent 8. Morbid obesity Surgical History 1. Cholecystectomy 1989 2. Cardiac stenting 2016 3. LLE stenting 2018 Family History Father had multiple MIs, at the age of 53. Mother had lung cancer, at the age of 60. Social History * Smoker: former Smoker (quit 30 years ago. Smoked for about 16 years. 2.5 packs per day) Alcohol: Denies Drugs: denies A-FIB/CHADSVASC A-FIB History Current/History of A-Fib/PAF?: No Review of Systems Constitutional: Reports: Chills (chills at night starting 1 month ago); Denies: Fever Eyes: Denies: Vision change ENT: Denies: Sore Throat Skin: Denies: Rash Pulmonary: Reports: Dyspnea, Cough (dry cough) Cardiovascular: Denies: Chest Pain Gastrointestinal: Reports: Constipation; Denies: Nausea, Abdominal Pain, Diarrhea Genitourinary: Denies: Dysuria Neurological: Reports: Numbness (in hands, uses gloves, Raynaud's syndrome) Psych: Reports: Mood Normal Physical Examination General Exam: Positive: Alert, Cooperative, Mild Distress Eye Exam: Positive: EOMI; Negative: Sclera icteric ENT Exam: Negative: Atraumatic Neck Exam: Positive: Supple Chest Exam: Positive: Diminished Heart Exam: Positive: Rate Normal, Regular Rhythm Abdomen Exam: Positive: BS Hypoactive, Soft, Other (obese); Negative: Tenderness Extremity Exam: Positive: Edema Neuro Exam: Positive: Cranial Nerves 3-12 NL Psych Exam: Positive: Mental status NL, Mood NL Vital Signs Vital Signs Date Time Temp Pulse Resp B/P (MAP) Pulse Ox O2 Delivery O2 Flow Rate FiO2 02/18/20 17:35 96.6 72 24 133/60 (84) 92 Nasal Cannula 5.0 Laboratory Data Labs 24H Laboratory Tests 2 02/18/20 12:19: Immature Granulocyte % (Auto) 0.8, Neutrophils (%) (Auto) 82.7H, Lymphocytes (%) (Auto) 7.6L, Monocytes (%) (Auto) 7.7H, Eosinophils (%) (Auto) 0.6, Basophils (%) (Auto) 0.6, Neutrophils # (Auto) 7.1, Lymphocytes # (Auto) 0.7L, Monocytes # (Auto) 0.7, Eosinophils # (Auto) 0.1, Basophils # (Auto) 0.1, Nucleated Red Blood Cells % (auto) 0.0, Anion Gap 5L, Glomerular Filtration Rate 44.3, Lactic Acid Level 1.9, Calcium Level 8.4L, Total Bilirubin 0.6, Direct Bilirubin 0.2, Aspartate Amino Transf (AST/SGOT) 10, Alanine Aminotransferase (ALT/SGPT) 9L, Alkaline Phosphatase 101, Total Creatine Kinase 21L, Creatine Kinase MB 1.5, Creatine Kinase MB Relative Index 7.14H, Troponin I < 0.02, VC-Bcn-H-Type Natriuretic Peptide 5903H, Total Protein 5.9L, Albumin 2.5L, Albumin/Globulin Ratio 0.7, Thyroid Stimulating Hormone (TSH) 5.260H, Free Thyroxine 0.98, Free Triiodothyronine 2.2 02/18/20 12:40: Blood Gas Bicarbonate Standard 28.8H, Arterial Blood pH 7.494H, Arterial Blood Partial Pressure CO2 38.1, Arterial Blood Partial Pressure O2 49.2*L, Arterial Blood Total CO2 29.8, Arterial Blood HCO3 28.6H, Arterial Blood Base Excess 5.1H, Arterial Blood Oxygen Saturation 83.6L 02/18/20 12:44: POC Glucose (Misc Panel) 194H, POC Sodium (Misc Panel) 135L, POC Potassium (Misc Panel) 3.5, POC Chloride (Misc Panel) 92L, POC Total CO2 (Misc Panel) 28.0H, POC Blood Urea Nitrogen (Misc Panel 18, POC Ionized Calcium (Misc Panel) 4.4L, POC Creatinine (Misc Panel) 1.6H, POC Hematocrit (Misc Panel) 30.0L 02/18/20 17:48: Bedside Glucose (Misc Panel) 137H 02/18/20 18:09: Troponin I < 0.02 CBC/BMP Laboratory Tests 02/18/20 12:19 Microbiology Microbiology 02/18/20 Blood Culture, Received Pending 02/18/20 Respiratory Virus Panel (PCR) ([facility]) - Final, Complete 02/18/20 Blood Culture, Received Pending Assessment/Plan Mr. Alberto is a 75-year-old male with CAD status post several stents in 2017, PVD status post left lower extremity stent, diabetes mellitus type 2, and diastolic heart failure who came to the ED for dyspnea and congestion. He has a history of heart failure with preserved ejection fraction. Last echocardiogram was 10/20/2019 which demonstrated an EF of 65%. He has been noncompliant with his diet. Imaging demonstrates a moderate right pleural effusion. I will order for thoracentesis for Sunday since he is on apixaban. Otherwise, we will continue diuresis. Will put him on a low-salt diet with 1800 mL of fluid restriction. Plan / VTE VTE Prophylaxis Ordered?: Yes Plan Plan 1. Acute decompensated heart failure with preserved ejection fraction Echocardiogram from October 2019 demonstrates an EF of 65% He has been noncompliant with his diet Continue with diuresis, daily weights, I's and O's He'll be on a 2 g sodium diet with 1800 mL fluid restriction 2. Compressive atelectasis/consolidation Imaging demonstrates compressive atelectasis versus consolidation in the right lung Atelectasis may be secondary to right pleural effusion. We'll try to have a thoracentesis performed on Sunday If it's consolidation, we will have patient on meropenem as he was recently hospitalized. He also has allergies to penicillins, cephalosporins, and levofloxacin 3. Hypertension While in the ED, his systolic blood pressure was low We'll put holding parameters on his antihypertensives Continue monitoring blood pressure 4.History of CAD status post multiple stents. Continue LAMIN inhibitor, beta yazmin, and nitrates with holding parameters Continue aspirin and statin. 5. History of peripheral vascular disease. Continue aspirin and Plavix. 6. COPD Stable. Continue inhalers. 7. Diabetes mellitus Diabetic diet. Continue insulin. 8. GERD Continue omeprazole 9. DVT prophylaxis Subcutaneous heparin ESTEE RUTHERFORD DO Feb 18, 2020 19:50
[2020-02-18 20:00] VITALS: BP 116/81
[2020-02-18] MEDS: OMEPRAZOLE 20 MG CAP PO SCH (22:55)
[2020-02-18] MEDS: LISINOPRIL *2.5 MG* TAB PO SCH (22:56)
[2020-02-18] MEDS: HEPARIN SOD (PORCINE) 5000UNITS/ML 1ML VIAL/SYRINGE SC SCH (22:57)
[2020-02-18] MEDS: guaiFENesin ER 600 MG TAB PO SCH (22:57)
[2020-02-18] MEDS: BENZONATATE 100 MG CAP PO SCH (22:57)
[2020-02-18] MEDS: RANOLAZINE 500 MG ER TAB PO SCH (22:57)
[2020-02-18] MEDS: METOPROLOL TART 12.5 MG PER 1/2 TAB PO SCH (22:57)
[2020-02-18] MEDS: ROSUVASTATIN 10 MG TAB (CRESTOR) PO SCH (22:57)
[2020-02-18] MEDS: SLF 3 ML SYR IV SCH (22:58)
[2020-02-19] VITALS: BP 121/66
[2020-02-19 04:00] VITALS: BP 101/57
[2020-02-19] MEDS: MEROPENEM INJ 1 GM in IV 1 EA IV SCH ×2 (06:18→18:04)
[2020-02-19] MEDS: SLF 3 ML SYR IV SCH ×3 (06:18→21:10)
[2020-02-19 07:13] LABS: HEMOGLOBIN 8.5 g/dl (13.5-17.5); MEAN CORPUSCULAR HEMOGLOBIN 26.3 pg (27.0-33.0); MEAN CORPUSCULAR HGB CONC 30.4 g/dl (32.0-36.5); MEAN CORPUSCULAR VOLUME 86.7 fl (80.0-96.0); PLATELET COUNT, AUTOMATED 212 10^3/uL (150-450); RED BLOOD COUNT 3.23 10^6/uL (4.30-6.10); WHITE BLOOD COUNT 7.7 10^3/uL (4.0-10.0)
[2020-02-19] MEDS: TIOTROPIUM INHALER/CAPSULE (SPIRIVA) INH SCH (07:20)
[2020-02-19] MEDS: ADVAIR HFA 230/21MCG INHALER INH SCH ×2 (07:20→19:43)
[2020-02-19 07:46] LABS: CREATININE FOR GFR 1.56 MG/DL (0.70-1.30); GLOMERULAR FILTRATION RATE 46.3 (>42); POTASSIUM SERUM 3.6 MEQ/L (3.5-5.1)
[2020-02-19 08:00] VITALS: BP 134/71
[2020-02-19] MEDS: HumaLOG INSULIN (NovoLOG) PER UNIT SC SCH ×4 (08:57→20:57)
[2020-02-19] MEDS ORDERED: LEVEMIR (INSULIN DETEMIR) 1 UNITS/0.01ML SC ONE (09:00)
[2020-02-19] MEDS: FUROSEMIDE 40MG/4ML VIAL (J1940) IV SCH (09:54)
[2020-02-19] MEDS: RANOLAZINE 500 MG ER TAB PO SCH ×2 (09:55→20:51)
[2020-02-19] MEDS: FLUoxetine 10 MG CAP PO SCH (09:55)
[2020-02-19] MEDS: BENZONATATE 100 MG CAP PO SCH ×3 (09:56→21:09)
[2020-02-19] MEDS: ISOSORBIDE MON. (IMDUR) 30 MG XR TAB PO SCH (09:56)
[2020-02-19] MEDS: OMEPRAZOLE 20 MG CAP PO SCH ×2 (09:56→21:09)
[2020-02-19] MEDS: ASPIRIN 325 MG TAB PO SCH (09:56)
[2020-02-19] MEDS: guaiFENesin ER 600 MG TAB PO SCH ×2 (09:56→21:09)
[2020-02-19] MEDS: HEPARIN SOD (PORCINE) 5000UNITS/ML 1ML VIAL/SYRINGE SC SCH ×2 (09:57→21:10)
[2020-02-19 12:00] VITALS: BP 118/55
[2020-02-19 16:00] VITALS: BP 105/58
--- NOTE | 2020-02-19 16:52 | IPNPDOC ---
Subjective Date Seen The patient was seen on 02/19/20. Subjective Chief Complaint/HPI Mr. Alberto is a 75-year-old male with CAD status post several stents in 2017, PVD status post left lower extremity stent, diabetes mellitus type 2, and diastolic heart failure who came to the ED for dyspnea and congestion. Overnight, his oxygen requirements increased to 5L. When I saw him, he was lying flat on back. Otherwise, he denies fever/chills, chest pain, abdominal pain, dysuria, or diarrhea. Constitutional: Denies: Chills, Fever Pulmonary: Reports: Dyspnea Cardiovascular: Denies: Chest Pain Gastrointestinal: Denies: Abdominal Pain Genitourinary: Denies: Dysuria Objective Physical Examination General Exam: Positive: Alert, Cooperative, Mild Distress Eye Exam: Positive: EOMI; Negative: Sclera icteric ENT Exam: Negative: Atraumatic Neck Exam: Positive: Supple Chest Exam: Positive: Diminished Heart Exam: Positive: Rate Normal, Regular Rhythm Abdomen Exam: Positive: BS Hypoactive, Soft, Other (obese); Negative: Tenderness Extremity Exam: Positive: Edema Neuro Exam: Positive: Cranial Nerves 3-12 NL Psych Exam: Positive: Mental status NL, Mood NL Assessment /Plan Assessment Mr. Alberto is a 75-year-old male with CAD status post several stents in 2017, PVD status post left lower extremity stent, diabetes mellitus type 2, and diastolic heart failure who came to the ED for dyspnea and congestion. He has a history of heart failure with preserved ejection fraction. Last echocardiogram was 10/20/2019 which demonstrated an EF of 65%. He has been noncompliant with his diet. Imaging demonstrates a moderate right pleural effusion. Plan for thoracentesis for Sunday since he is on apixaban. Otherwise, we will continue diuresis. Will put him on a low-salt diet with 1800 mL of fluid restriction. We will hold medications that cause hypotension in order to increase diuresis Plan/VTE VTE Prophylaxis Ordered?: Yes Plan 1. Acute decompensated heart failure with preserved ejection fraction Echocardiogram from October 2019 demonstrates an EF of 65% He has been noncompliant with his diet Continue with diuresis, daily weights, I's and O's He'll be on a 2 g sodium diet with 1800 mL fluid restriction 2. Compressive atelectasis/consolidation Imaging demonstrates compressive atelectasis versus consolidation in the right lung Atelectasis may be secondary to right pleural effusion. We'll try to have a thoracentesis performed on Sunday If it's consolidation, we will have patient on meropenem as he was recently hospitalized. He also has allergies to penicillins, cephalosporins, and levofloxacin 3. Hypertension While in the ED, his systolic blood pressure was low We'll put holding parameters on his antihypertensives Continue monitoring blood pressure 4.History of CAD status post multiple stents. Continue LAMIN inhibitor, beta yazmin, and nitrates with holding parameters Continue aspirin and statin. 5. History of peripheral vascular disease. Continue aspirin and Plavix. 6. COPD Stable. Continue inhalers. 7. Diabetes mellitus Diabetic diet. Continue insulin. 8. GERD Continue omeprazole 9. DVT prophylaxis Subcutaneous heparin. Will be held tomorrow morning for thoracentesis Dispo: Plan for thoracentesis tomorrow. Holding antihypertensives today in order to give Lasix. As blood pressure increases, plan for more aggressive diuresis. VS, I&O, 24H, Fishbone Vital Signs/I&O Vital Signs Date Time Temp Pulse Resp B/P (MAP) Pulse Ox O2 Delivery O2 Flow Rate FiO2 02/19/20 12:00 97.8 66 17 118/55 (76) 97 Nasal Cannula 02/19/20 12:00 5.0 I&O- Last 24 Hours up to 6 AM 02/19/20 06:00 Intake Total 470 ml Output Total 700 ml Balance -230 ml Laboratory Data 24H LABS Laboratory Tests 2 02/18/20 17:48: Bedside Glucose (Misc Panel) 137H 02/18/20 18:09: Troponin I < 0.02 02/18/20 22:25: Bedside Glucose (Misc Panel) 217H 02/19/20 06:27: Nucleated Red Blood Cells % (auto) 0.0, Anion Gap 6L, Glomerular Filtration Rate 46.3, Calcium Level 8.0L 02/19/20 11:33: Bedside Glucose (Misc Panel) 155H CBC/BMP Laboratory Tests 02/19/20 06:27 Microbiology Microbiology 02/18/20 Blood Culture - Preliminary, Resulted No growth after 24 hours . All specim... 02/18/20 Respiratory Virus Panel (PCR) ([facility]) - Final, Complete 02/18/20 Blood Culture - Preliminary, Resulted No growth after 24 hours . All specim... MAR,ESTEE A. DO Feb 19, 2020 16:52
[2020-02-19 20:00] VITALS: BP 103/55
[2020-02-19] MEDS: LISINOPRIL *2.5 MG* TAB PO SCH (20:50)
[2020-02-19] MEDS: METOPROLOL TART 12.5 MG PER 1/2 TAB PO SCH (20:50)
[2020-02-19] MEDS: ROSUVASTATIN 10 MG TAB (CRESTOR) PO SCH (21:09)
[2020-02-20] VITALS (11 sets, daily range): BP systolic 93–136; BP diastolic 53–68; O2SAT 88–90
[2020-02-20 05:24] LABS: HEMATOCRIT 27.3 % (42.0-52.0); HEMOGLOBIN 8.3 g/dl (13.5-17.5); MEAN CORPUSCULAR HEMOGLOBIN 25.9 pg (27.0-33.0); MEAN CORPUSCULAR HGB CONC 30.4 g/dl (32.0-36.5); MEAN CORPUSCULAR VOLUME 85.3 fl (80.0-96.0); PLATELET COUNT, AUTOMATED 225 10^3/uL (150-450); WHITE BLOOD COUNT 7.4 10^3/uL (4.0-10.0)
[2020-02-20] MEDS: SLF 3 ML SYR IV SCH ×3 (05:24→20:45)
[2020-02-20] MEDS: MEROPENEM INJ 1 GM in IV 1 EA IV SCH (05:25)
[2020-02-20 05:36] LABS: INR 1.3; PARTIAL THROMBOPLASTIN TIME 39.4 SECONDS (24.2-38.5); PROTHROMBIN TIME 16.5 SECONDS (12.5-14.3)
[2020-02-20 05:58] LABS: ALBUMIN 2.1 GM/DL (3.2-5.2); BILIRUBIN,TOTAL 0.5 MG/DL (0.2-1.0); CALCIUM LEVEL 7.7 MG/DL (8.8-10.2); CREATININE FOR GFR 1.44 MG/DL (0.70-1.30); GLOMERULAR FILTRATION RATE 50.8 (>42); POTASSIUM SERUM 3.3 MEQ/L (3.5-5.1); TOTAL PROTEIN 4.9 GM/DL (6.4-8.2)
[2020-02-20] MEDS: TIOTROPIUM INHALER/CAPSULE (SPIRIVA) INH SCH (07:16)
[2020-02-20] MEDS: ADVAIR HFA 230/21MCG INHALER INH SCH ×2 (07:16→19:36)
[2020-02-20] MEDS: HumaLOG INSULIN (NovoLOG) PER UNIT SC SCH ×4 (07:30→20:53)
[2020-02-20] MEDS ORDERED: POTASSIUM CHLORIDE 10 MEQ SR TABLET PO ONE (08:00)
[2020-02-20 08:24] LABS: MAGNESIUM LEVEL 2.2 MG/DL (1.8-2.4)
[2020-02-20] MEDS: ISOSORBIDE MON. (IMDUR) 30 MG XR TAB PO SCH (08:41)
[2020-02-20] MEDS: RANOLAZINE 500 MG ER TAB PO SCH ×2 (08:41→20:45)
[2020-02-20] MEDS: FLUoxetine 10 MG CAP PO SCH (08:41)
[2020-02-20] MEDS: OMEPRAZOLE 20 MG CAP PO SCH ×2 (08:41→20:45)
[2020-02-20] MEDS: BENZONATATE 100 MG CAP PO SCH ×3 (08:41→20:45)
[2020-02-20] MEDS: guaiFENesin ER 600 MG TAB PO SCH ×2 (08:42→20:45)
[2020-02-20] MEDS: FUROSEMIDE 40MG/4ML VIAL (J1940) IV SCH (08:42)
[2020-02-20] MEDS: ASPIRIN 325 MG TAB PO SCH (08:42)
[2020-02-20 15:17] LABS: LDH, BODY FLUID 78 U/L (NOT ESTABLISHED); SOURCE, BODY FLUID LDH PLEURAL
[2020-02-20 15:22] LABS: SOURCE, BODY FLUID ALBUMIN PLEURAL; SOURCE, BODY FLUID TOT PROTEIN PLEURAL; TOTAL PROTEIN, BODY FLUID 1.6 G/DL (NOT ESTABLISHED)
[2020-02-20 15:44] LABS: APPEARANCE, BODY FLUID CLOUDY (CLEAR); PLEURAL FL COLOR PINK (COLORLESS); SOURCE, BODY FLUID PLEURAL
--- NOTE | 2020-02-20 17:20 | IPNPDOC ---
Subjective Date Seen The patient was seen on 02/20/20. Subjective Chief Complaint/HPI Mr. Alberto is a 75-year-old male with CAD status post several stents in 2017, PVD status post left lower extremity stent, diabetes mellitus type 2, and diastolic heart failure who came to the ED for dyspnea and congestion. Overnight he still required 5 L of nasal cannula. He denies fever/chills, chest pain, abdominal pain, dysuria, or diarrhea. He has planned thoracentesis today Constitutional: Denies: Chills, Fever Pulmonary: Reports: Dyspnea Cardiovascular: Denies: Chest Pain Gastrointestinal: Denies: Abdominal Pain Genitourinary: Denies: Dysuria Objective Physical Examination General Exam: Positive: Alert, Cooperative, Mild Distress Eye Exam: Positive: EOMI; Negative: Sclera icteric ENT Exam: Negative: Atraumatic Neck Exam: Positive: Supple Chest Exam: Positive: Diminished Heart Exam: Positive: Rate Normal, Regular Rhythm Abdomen Exam: Positive: BS Hypoactive, Soft, Other (obese); Negative: Tenderness Extremity Exam: Positive: Edema Neuro Exam: Positive: Cranial Nerves 3-12 NL Psych Exam: Positive: Mental status NL, Mood NL Assessment /Plan Assessment Mr. Alberto is a 75-year-old male with CAD status post several stents in 2017, PVD status post left lower extremity stent, diabetes mellitus type 2, and diastolic heart failure who came to the ED for dyspnea and congestion. He has a history of heart failure with preserved ejection fraction. Last echocardiogram was 10/20/2019 which demonstrated an EF of 65%. He has been noncompliant with his diet. Imaging demonstrates a moderate right pleural effusion. Plan for thoracentesis for Sunday since he is on apixaban. Otherwise, we will continue diuresis. Will put him on a low-salt diet with 1800 mL of fluid restriction. We will hold medications that cause hypotension in order to increase diuresis. Today pending results from thoracentesis Plan/VTE VTE Prophylaxis Ordered?: Yes Plan 1. Acute decompensated heart failure with preserved ejection fraction Echocardiogram from October 2019 demonstrates an EF of 65% He has been noncompliant with his diet Continue with diuresis, daily weights, I's and O's He'll be on a 2 g sodium diet with 1800 mL fluid restriction 2. Acute on chronic hypoxic respiratory failure On admission he had conversational dyspnea Chronically on 3 L, now on 5 L We will decompress along with the thoracentesis, continue with diuresis 3. Compressive atelectasis Imaging demonstrates compressive atelectasis versus consolidation in the right lung Atelectasis may be secondary to right pleural effusion. Thoracentesis scheduled for today Procalcitonin low at 0.14. Unlikely infection. We'll DC Merrem 4. Hypertension While in the ED, his systolic blood pressure was low We'll put holding parameters on his antihypertensives Continue monitoring blood pressure 5. History of CAD status post multiple stents. Continue LAMIN inhibitor, beta yazmin, and nitrates with holding parameters Continue aspirin and statin. 6. History of peripheral vascular disease. Continue aspirin and Plavix. 7. COPD Stable. Continue inhalers. 8. Diabetes mellitus Diabetic diet. Continue insulin. 9. GERD Continue omeprazole 10. DVT prophylaxis Subcutaneous heparin. Will be held tomorrow morning for thoracentesis Dispo: Thoracentesis today, pending results. If respiratory status does not improve, we'll be more aggressive with diuresis as much as his blood pressure can support. Holding antihypertensives. VS, I&O, 24H, [facility] Vital Signs/I&O Vital Signs Date Time Temp Pulse Resp B/P (MAP) Pulse Ox O2 Delivery O2 Flow Rate FiO2 02/20/20 16:15 98.3 68 20 133/66 (88) 88 Nasal Cannula 3.0 I&O- Last 24 Hours up to 6 AM 02/20/20 06:00 Intake Total 750 ml Balance 750 ml Laboratory Data 24H LABS Laboratory Tests 2 02/19/20 20:56: Bedside Glucose (Misc Panel) 146H 02/20/20 05:03: Nucleated Red Blood Cells % (auto) 0.3H, Prothrombin Time 16.5H, Prothromb Time International Ratio 1.30, Activated Partial Thromboplast Time 39.4H, Anion Gap 5L, Glomerular Filtration Rate 50.8, Calcium Level 7.7L, Magnesium Level 2.2, Total Bilirubin 0.5, Aspartate Amino Transf (AST/SGOT) 9, Alanine Aminotransferase (ALT/SGPT) 8L, Alkaline Phosphatase 84, Lactate Dehydrogenase 226, Total Protein 4.9L, Albumin 2.1L, Albumin/Globulin Ratio 0.8 02/20/20 11:08: Bedside Glucose (Misc Panel) 118H 02/20/20 14:30: Body Fluid WBC (Auto) 665H, Body Fluid RBC (Auto) 9, Body Fluid Mononuclear Cells % Auto 87.5H, Fluid Polymorphonuclear Cell % Auto 12.5H, Body Fluid Protein Source PLEURAL, Body Fluid Total Protein 1.6, Body Fluid Albumin Source PLEURAL, Body Fluid Albumin 0.8, Body Fluid LDH Source PLEURAL, Body Fluid Lactate Dehydrogenase 78, Pleural Fluid Source PLEURAL, Pleural Fluid Color PINK, Pleural Fluid Appearance CLOUDY 02/20/20 16:21: Bedside Glucose (Misc Panel) 148H CBC/BMP Laboratory Tests 02/20/20 05:03 Microbiology Microbiology 02/20/20 Fungal Smear, Received Pending 02/20/20 Fungal Culture, Received Pending 02/20/20 Gram Stain, Received Pending 02/20/20 Anaerobic Culture, Received Pending 02/20/20 Body Fluid Culture, Received Pending 02/18/20 Blood Culture - Preliminary, Resulted No Growth after 48 hours. All Specime... 02/18/20 Respiratory Virus Panel (PCR) ([facility]) - Final, Complete 02/18/20 Blood Culture - Preliminary, Resulted No Growth after 48 hours. All Specime... ESTEE RUTHERFORD DO Feb 20, 2020 17:20
[2020-02-20] MEDS: LISINOPRIL *2.5 MG* TAB PO SCH (20:44)
[2020-02-20] MEDS: METOPROLOL TART 12.5 MG PER 1/2 TAB PO SCH (20:45)
[2020-02-20] MEDS: ROSUVASTATIN 10 MG TAB (CRESTOR) PO SCH (20:45)
[2020-02-21] VITALS: BP 114/58
[2020-02-21 04:00] VITALS: BP 124/62
[2020-02-21 04:50] LABS: HEMATOCRIT 28.1 % (42.0-52.0); HEMOGLOBIN 8.5 g/dl (13.5-17.5); MEAN CORPUSCULAR HGB CONC 30.2 g/dl (32.0-36.5); MEAN CORPUSCULAR VOLUME 85.9 fl (80.0-96.0); PLATELET COUNT, AUTOMATED 235 10^3/uL (150-450); RED BLOOD COUNT 3.27 10^6/uL (4.30-6.10); WHITE BLOOD COUNT 7.1 10^3/uL (4.0-10.0)
[2020-02-21 05:19] LABS: BLOOD UREA NITROGEN 19 MG/DL (7-18); CALCIUM LEVEL 7.9 MG/DL (8.8-10.2); CARBON DIOXIDE LEVEL 30 MEQ/L (21-32); CHLORIDE LEVEL 102 MEQ/L (98-107); CREATININE FOR GFR 1.21 MG/DL (0.70-1.30); GLOMERULAR FILTRATION RATE > 60.0 (>42); GLUCOSE, FASTING 108 MG/DL (70-100); POTASSIUM SERUM 3.5 MEQ/L (3.5-5.1); SODIUM LEVEL 137 MEQ/L (136-145)
[2020-02-21] MEDS: SLF 3 ML SYR IV SCH (06:40)
[2020-02-21] MEDS: HumaLOG INSULIN (NovoLOG) PER UNIT SC SCH (07:30)
[2020-02-21 08:00] VITALS: BP 110/53
[2020-02-21] MEDS: ADVAIR HFA 230/21MCG INHALER INH SCH (08:22)
[2020-02-21] MEDS: TIOTROPIUM INHALER/CAPSULE (SPIRIVA) INH SCH (08:22)
[2020-02-21 08:48] VITALS: BP 110/53
[2020-02-21] MEDS: ISOSORBIDE MON. (IMDUR) 30 MG XR TAB PO SCH (08:48)
[2020-02-21] MEDS: ASPIRIN 325 MG TAB PO SCH (08:48)
[2020-02-21] MEDS: RANOLAZINE 500 MG ER TAB PO SCH (08:49)
[2020-02-21] MEDS: OMEPRAZOLE 20 MG CAP PO SCH (08:49)
[2020-02-21] MEDS: FLUoxetine 10 MG CAP PO SCH (08:49)
[2020-02-21] MEDS: BENZONATATE 100 MG CAP PO SCH (08:49)
[2020-02-21] MEDS: guaiFENesin ER 600 MG TAB PO SCH (08:49)
[2020-02-21] MEDS: HEPARIN SOD (PORCINE) 5000UNITS/ML 1ML VIAL/SYRINGE SC SCH (08:50)
[2020-02-21] MEDS: FUROSEMIDE 40MG/4ML VIAL (J1940) IV SCH (08:50)
[2020-02-21] MEDS ORDERED: FLUBLOK(EGG FREE)(QUAD)INFLUENZA VACC 0.5ML SYRINGE 18YRS & OLDER IM ONE (11:00)
--- NOTE | 2020-02-21 21:23 | DS.PDOC ---
Discharge Summary General Date of Admission Feb 18, 2020 at 15:28 Date of Discharge Feb 21, 2020 Attending Physician: ESTEE RUTHERFORD DO Discharge Summary PROCEDURES PERFORMED DURING STAY: Thoracentesis of right lung ADMITTING DIAGNOSES: 1. Acute decompensated heart failure with preserved ejection fraction 2. Acute on chronic hypoxic respiratory failure 3. Right lung compressive atelectasis 4. Right lung pleural effusion 5. Hypertension 6. Coronary artery disease disease status post multiple stents 7. Peripheral vascular disease 8. COPD 9. Diabetes mellitus 10. GERD 11. Obesity DISCHARGE DIAGNOSES: 1. Acute decompensated heart failure with preserved ejection fraction 2. Acute on chronic hypoxic respiratory failure 3. Right lung compressive atelectasis 4. Right lung pleural effusion 5. Hypertension 6. Coronary artery disease disease status post multiple stents 7. Peripheral vascular disease 8. COPD 9. Diabetes mellitus 10. GERD 11. Obesity COMPLICATIONS/CHIEF COMPLAINT: Chf Hypoxemia. HISTORY OF PRESENT ILLNESS: Mr. Alberto is a 75-year-old male with CAD status post several stents in 2016, PVD status post left lower extremity stent, diabetes mellitus type 2, and diastolic heart failure who came to the ED for dyspnea and congestion. He was recently here in January for vascular occlusion. He has been doing better now, and his feet are normal colored. There are no longer purple. Earlier in the week, he wanted to have soup. He had some canned soup. Then 3 days ago he started having dyspnea, runny nose, and congestion. He went to the ED, and was found to be saturating between 86% to 92% on 3 L. Chronically is on 3 L due to COPD. They obtained a blood gas. PCO2 was not elevated, but the patient was hypoxic with a PO2 of 49.2. They obtain a CT of the chest which demonstrated moderate right and small left pleural effusion. In the ED he was given 40 mg of IV Lasix and 1 g of meropenem. Admission was called. When I went to see the patient, he is complaining of dyspnea which started about 3 days ago. He told me that he was noncompliant with his diet. He's been having a dry cough. He has not been able to bring up sputum. Otherwise has been denying any fever or chills, lightheadedness or dizziness, chest pain, abdominal pain, diarrhea, or dysuria. HOSPITAL COURSE: After the first night, he required 5 L of oxygen. We were able to increase his diuretics because his blood pressure was borderline low. Otherwise, his Pro calcitonin came back low at 0.14. Unlikely pneumonia. Discontinued Merrem. On 02/20/2020 he had a thoracentesis. They removed 115 ML o f transudate fluid (serum protein 4.9, pleural fluid protein 1.6, serum LDH 226, pleural fluid LDH 78, serum albumin 2.1, pleural fluid albumin 0.8). Following thoracentesis, he returned to his baseline of 3 L. This morning when I saw him he felt well. He told me he felt like a new man. He denied any fever or chills, lightheadedness or dizziness, chest pain, dyspnea, abdominal pain, dysuria, or diarrhea. He felt ready for home and he is subsequently discharged. He is given instruction to measure his blood pressure and weight himself daily. DISCHARGE MEDICATIONS: Please see below. ALLERGIES: Please see below. PHYSICAL EXAMINATION ON DISCHARGE: VITAL SIGNS: Please see below. GENERAL: Comfortable, in no apparent distress. HEENT: Head normocephalic/atraumatic, EOMI, sclera clear. NECK: Supple RESPIRATORY: Diminished breath sounds CARDIOVASCULAR: Regular rate and rhythm. ABDOMEN: Soft, nontender, no guarding or rebound tenderness. Normal bowel sounds. MUSCLE SKELETAL: Muscle strength 5/5 in all extremities. NEUROLOGICAL: CN 312 grossly intact, no focal deficits noted. PSYCHOLOGICAL: Normal mood and affect LABORATORY DATA: Please see below. IMAGING: CT chest without contrast 1. Moderate right and small left pleural effusions. 2. Cardiomegaly and prominent coronary artery calcifications. 3. Consolidation in the right lower lobe, due at least in part atelectasis. Correlate clinically to exclude superimposed pneumonia. 4. Mild interstitial pulmonary edema and chronic interstitial scarring. 5. Unchanged mild mediastinal lymphadenopathy. PROGNOSIS: Stable ACTIVITY: As tolerated. DIET: Carb consistent diet, low-salt diet, 1800 mL fluid restriction DISCHARGE PLAN: Home with home services DISPOSITION: Home Health Service. DISCHARGE INSTRUCTIONS: 1. Follow-up with her PCP within a week DISCHARGE CONDITION: Stable. Total time spent on discharge planning, discharge summary, and med reconciliation 45 minutes Vital Signs/I&Os Vital Signs Date Time Temp Pulse Resp B/P (MAP) Pulse Ox O2 Delivery O2 Flow Rate FiO2 02/21/20 08:48 110/53 02/21/20 08:00 97.2 67 20 97 Nasal Cannula 5.0 I&O- Last 24 Hours up to 6 AM 02/21/20 06:00 Intake Total 1318 ml Output Total 400 ml Balance 918 ml Laboratory Data Labs 24H Laboratory Tests 2 02/21/20 04:18: Nucleated Red Blood Cells % (auto) 0.3H, Anion Gap 5L, Glomerular Filtration Rate > 60.0, Calcium Level 7.9L CBC/BMP Laboratory Tests 02/21/20 04:18 Microbiology Microbiology 02/20/20 Fungal Smear, Received Pending 02/20/20 Fungal Culture, Received Pending 02/20/20 Gram Stain - Final, Resulted 02/20/20 Anaerobic Culture, Resulted Pending 02/20/20 Body Fluid Culture, Received Pending 02/18/20 Blood Culture - Preliminary, Resulted No Growth after 72 hours. All specime... 02/18/20 Respiratory Virus Panel (PCR) ([facility]) - Final, Complete 02/18/20 Blood Culture - Preliminary, Resulted No Growth after 72 hours. All specime... Discharge Medications Scheduled Apixaban (Eliquis) 5 Mg Tablet, 5 MG PO BID, (Reported) Aspirin (Aspirin) 325 Mg Tab, 325 MG PO DAILY, (Reported) Fluoxetine Hcl (Fluoxetine HCl) 10 Mg Capsule, 30 MG PO DAILY, (Reported) Insulin Aspart (Novolog Flexpen) 100 Unit/Ml Inj, 1 DOSE SC ACHS, (Reported) PER SLIDING SCALE Insulin Glargine,Hum.rec.anlog (Toujeo Solostar) 300 Unit/Ml Inj, 30 UNIT SC DAILY, (Reported) Isosorbide Mononitrate (Isosorbide Mononitrate ER) 60 Mg Tab.er.24h, 30 MG PO DAILY, (Reported) Lisinopril (Lisinopril) 2.5 Mg Tab, 2.5 MG PO QHS, (Reported) Magnesium Oxide (Magnesium Oxide) 400 Mg Tab, 400 MG PO DAILY, (Reported) Metoprolol Tartrate (Metoprolol Tartrate) 25 Mg Tab, 12.5 MG PO QHS, (Reported) Omeprazole (Omeprazole) 20 Mg Tab, 20 MG PO BID, (Reported) Ranolazine (Ranexa) 1,000 Mg Tab.er.12h, 1,000 MG PO BID, (Reported) Rosuvastatin Calcium (Rosuvastatin Calcium) 40 Mg Tab, 40 MG PO QHS, (Reported) Salmeterol/Fluticasone (Advair 500-50 Diskus) 28 Puff/Inhaler Aerp, 1 PUFF INH BID, (Reported) Torsemide (Torsemide) 20 Mg Tablet, 40 MG PO BID, (Reported) 0900/1700 Umeclidinium [place] (Incruse Ellipta) 62.5 Mcg/Inh Inh, 1 PUFF INH DAILY, (Reported) Scheduled PRN Acetaminophen (Mapap) 500 Mg Tablet, 1,000 MG PO Q6H PRN for PAIN, (Reported) Albuterol Sulf (Albuterol Sulfate) 2.5 Mg/3 Ml Vial.neb, 2.5 MG INH Q4HP PRN for SHORTNESS OF BREATH, (Reported) Albuterol Sulfate (Ventolin Hfa) 108 Mcg/Act Aer, 2 PUFF INH Q4H PRN for SHORTNESS OF BREATH, (Reported) Fluticasone Propionate (Fluticasone Propionate) 16 Gm [place].susp, 1 SPRAY NARES DAILY PRN for CONGESTION, (Reported) Nitroglycerin (Nitrostat) 0.4 Mg Subl, 0.4 MG SL NITRO PRN for CHEST PAIN, (Reported) Allergies Coded Allergies: Cephalosporins (Verified Allergy, Intermediate, RASH, 02/18/20) RASH PER Penicillins (Verified Allergy, Intermediate, RASH, 02/18/20) clavulanic acid (Verified Allergy, Intermediate, RASH, 02/18/20) levofloxacin (Verified Allergy, Intermediate, RASH, 02/18/20) ESTEE RUTHERFORD DO Feb 21, 2020 21:15
--- NOTE | 2020-02-25 14:10 | REP ---
TWO-VIEW CHEST HISTORY: Right thoracentesis. TECHNIQUE: Two views of the chest are performed following right thoracentesis. FINDINGS: There is no pneumothorax. Comparing to prior studies, there is again some mild hazy parenchymal opacity in each lung base, which appears unchanged. There is some mild pleural fluid in the posterior costophrenic sulci on the lateral view unchanged. Heart and mediastinum are unchanged. MTDD
--- NOTE | 2020-02-25 14:11 | REP ---
The procedure was performed by CORY Lopez, under the direct supervision of Dr. Yancey. The risks and benefits of the procedure were explained to the patient and an informed consent was obtained both verbally and written. Directly prior to the start of the procedure, a formal time-out was completed in the procedure room. Pleural fluid in the right lung zone was localized using ultrasound guidance. The skin was prepped and draped in a sterile fashion. Approximately 11 mL of buffered Lidocaine was used a local anesthetic. Using ultrasound guidance, an 8- Scottish multi-side hole catheter was inserted using trocar technique. 815 mL of red-tinged fluid was removed and sent to the lab for further analysis. The patient tolerated the procedure well and there were no immediate complications. The patient was discharged back up to the floor. RANDY
== END 2020-02-21 11:30 | disposition home health service (06) | DRG 291 ==
LOC: EDBD 11:51 → M ED 11:51 → M ED INP 15:28 → ENRESERVTM 17:04 → ENRESERVDT 17:04 → M PCU 17:37
PROVIDERS: ADMIT Internal Medicine; ATTEND Internal Medicine
PROC: 0W993ZZ Drainage of Right Pleural Cavity, Percutaneous Approach (ICD-10-PCS; principal; 2020-02-20 10:00)
DX: I11.0 Hypertensive heart disease with heart failure (principal); J96.21 Acute and chronic respiratory failure with hypoxia; J98.11 Atelectasis; J90 Pleural effusion, not elsewhere classified; I50.33 Acute on chronic diastolic (congestive) heart failure; I25.10 Atherosclerotic heart disease of native coronary artery without angina pectoris; J44.9 Chronic obstructive pulmonary disease, unspecified; E11.51 Type 2 diabetes mellitus with diabetic peripheral angiopathy without gangrene; K21.9 Gastro-esophageal reflux disease without esophagitis; G47.33 Obstructive sleep apnea (adult) (pediatric); E66.01 Morbid (severe) obesity due to excess calories; Z79.01 Long term (current) use of anticoagulants; Z79.82 Long term (current) use of aspirin; Z79.4 Long term (current) use of insulin; Z79.899 Other long term (current) drug therapy; Z88.0 Allergy status to penicillin; Z95.5 Presence of coronary angioplasty implant and graft; Z88.1 Allergy status to other antibiotic agents; Z88.8 Allergy status to other drugs, medicaments and biological substances; Z87.891 Personal history of nicotine dependence; Z99.81 Dependence on supplemental oxygen; Z90.49 Acquired absence of other specified parts of digestive tract; Z95.820 Peripheral vascular angioplasty status with implants and grafts; Z68.39 Body mass index [BMI] 39.0-39.9, adult

== ENCOUNTER → 2020-03-16 | Outpatient (CLI) | payer MEDICARE ==
[~2020-03-16] MED LIST changes: +ASPI81TA26 PO; +ISOS30TA4 PO
--- NOTE | 2020-03-16 16:12 | REP ---
INDICATION: ATH WAYNE ART OF EXT WI INT ANGELA BI LEGS MAIN REG. Status post right-sided stents. COMPARISON: Comparison study 02/05/2020.. TECHNIQUE: Bilateral lower extremity duplex arterial ultrasound. FINDINGS: Ankle brachial indices could not be accomplished due to noncompressible vessels. In the right lower extremity patent stents are noted from the proximal superficial femoral to the popliteal. No flow could be seen in the anterior tibial artery on the right. Flow is reversed in the distal anterior tibial artery on the right. There is a mid to distal occlusion in the superficial femoral artery on the left. Very slow flow is seen below the popliteal on the left study is little changed from the prior study. Monophasic waveforms are noted in the left lower extremity. Right lower extremity arterial Doppler velocity chart: Right [employer] [place] ANALYST PSV 130 cm/S Profundal 211 Proximal SFA 117 Mid SFA 75 Distal SFA 83 Popliteal 51 Proximal SERVANDO 8 no flow seen Tibial-peroneal trunk 68 Proximal CONCRETE MASON 75 Distal CONCRETE MASON 73 Distal SERVANDO trickle flow. Left lower extremity arterial Doppler velocity chart: Left [employer] [place] ANALYST PSV 116 cm/S Profundal 112 Proximal SFA 88/28 Mid SFA 25/8 Distal SFA stent occluded Popliteal 23 Proximal SERVANDO no flow seen Tibial-peroneal trunk 20 Proximal CONCRETE MASON 8 no flow seen Distal CONCRETE MASON 16 Distal SERVANDO 6 IMPRESSION: Advanced atherosclerotic changes as above. <Electronically signed by Garrison Presley > 03/16/20 [id number]
== END ==
LOC: M RAD 12:26
PROVIDERS: ATTEND Physician Assistant
DX: I70.213 Atherosclerosis of native arteries of extremities with intermittent claudication, bilateral legs (principal)

== ENCOUNTER 2020-03-22 14:01 | Inpatient (IN) | payer MEDICARE ==
[~2020-03-22] VITALS: Ht 172.7 cm; Wt 111.1 kg
[~2020-03-22 14:01] MED LIST changes: -ASPI81TA26 PO; -ISOS30TA4 PO
--- NOTE | 2020-03-22 14:47 | REP ---
INDICATION: altered mental statius. COMPARISON: 02/01/2020.. TECHNIQUE: Helical scanning is acquired. 5 mm axial images were reformatted. Coronal MPR images were generated. FINDINGS: There is generalized volume loss. There are focal low-density areas in the anterior limb of the internal capsule on the left and smaller low-density areas seen in the anterior limb of the internal capsule on the right consistent with bilateral basal ganglia lacunar infarcts. Small vessel atherosclerotic changes are noted in the periventricular white matter bilaterally. This is most prominent in the periventricular white matter on the left. These findings are unchanged from February 01, 2020. No acute infarction is seen. No intracranial hemorrhage is observed. There is vascular calcification prominently affecting the distal vertebral and internal carotid arteries. IMPRESSION: Extensive vascular calcification. Mild generalized volume loss. Old lacunar infarcts noted bilaterally in the basal ganglia. Small vessel changes at as previously noted. No acute infarct or hemorrhage seen. No mass lesion is observed... <Electronically signed by Garrison Presley > 03/22/20 [id number]
[2020-03-22 16:24] LABS: VENOUS BASE EXCESS 5.5 (-2.0-2.0); VENOUS HCO3 29.7 MEQ/L (23.0-27.0); VENOUS O2 SATURATION 95.1 % (60.0-80.0); VENOUS PARTIAL PRESSURE CO2 41.8 mmHg (38.0-50.0); VENOUS PARTIAL PRESSURE O2 73.2 mmHg (30.0-50.0); VENOUS PH 7.469 UNITS (7.330-7.430); VENOUS STANDARD HCO3 29.4 MEQ/L
[2020-03-22 16:38] LABS: BASO # 0.1 10^3/uL (0.0-0.2); BASO % 0.8 % (0.0-1.0); EOS # 0.1 10^3/uL (0.0-0.5); EOS % 0.7 % (0.0-3.0); HEMATOCRIT 27.3 % (42.0-52.0); HEMOGLOBIN 8.1 g/dl (13.5-17.5); LYMPH # 0.8 10^3/uL (1.5-5.0); LYMPH % 9.1 % (24.0-44.0); MEAN CORPUSCULAR HEMOGLOBIN 24.6 pg (27.0-33.0); MEAN CORPUSCULAR HGB CONC 29.7 g/dl (32.0-36.5); MONO # 0.6 10^3/uL (0.0-0.8); MONO % 7.1 % (0.0-5.0); NEUTROPHILS % 81.6 % (36.0-66.0); PLATELET COUNT, AUTOMATED 219 10^3/uL (150-450); RED BLOOD COUNT 3.29 10^6/uL (4.30-6.10); WHITE BLOOD COUNT 8.5 10^3/uL (4.0-10.0)
[2020-03-22 17:08] LABS: ALBUMIN 2.4 GM/DL (3.2-5.2); BILIRUBIN,DIRECT 0.2 MG/DL (0.0-0.2); BILIRUBIN,TOTAL 0.5 MG/DL (0.2-1.0); CALCIUM LEVEL 8.1 MG/DL (8.8-10.2); CREATININE FOR GFR 1.47 MG/DL (0.70-1.30); GLOMERULAR FILTRATION RATE 49.6 (>42); POTASSIUM SERUM 3.4 MEQ/L (3.5-5.1); THYROID STIMULATING HORMONE 2.06 uIU/ML (0.358-3.740); TOTAL PROTEIN 5.6 GM/DL (6.4-8.2)
[2020-03-22] MEDS ORDERED: ASPI81TA26 PO (19:01)
[2020-03-22] MEDS ORDERED: ISOS30TA4 PO (19:01)
[2020-03-22] MEDS ORDERED: DEXTROSE 50% 50 ML SYRINGE IV PRN (19:15)
[2020-03-22] MEDS ORDERED: GLUCOSE 4GM CHEW TABLET PO PRN (19:15)
[2020-03-22] MEDS ORDERED: GLUCAGON INJ 1MG VIAL SC PRN (19:15)
[2020-03-22] MEDS ORDERED: NITROGLYCERIN 0.4 MG SUBL TABLET SL PRN (19:15)
--- NOTE | 2020-03-22 19:20 | HPEPDOC ---
[facility] Medical History & Physical Date of Admission Mar 22, 2020 Date of Service: Mar 22, 2020 Attending Physician: Diane Jara MD Vital Signs CHIEF COMPLAINT: altered mental status, upper extremity shaking HISTORY OF PRESENT ILLNESS: Patient is a 75-year-old male with past mental history of COPD, diastolic CHF, JAELYN on CPAP, hypertension, diabetes mellitus, CAD status post stents, peripheral vascular disease who presented to [facility] emergency room after having increased upper extremity shaking and episode of transient altered mental status. According to the patient's family and the patient he began having bilateral upper extremity hand shaking which developed suddenly. During this time. His family states that he was not himself mentally. They denied any tongue biting, drooling, facial drooping, drooping of limbs, loss of bowel or bladder, patient complaining of chest pain, shortness of breath. This episode lasted approximately 30 minutes. During that time the patient's family called 911 to be brought to the hospital. According to EMS the patient had some hypotension in route; however, upon arrival to the emergency room this had resolved. The patient was also awake alert and oriented 3 upon arrival to the emergency room. He had no documented weakness and denied lightheadedness, chest pain, shortness of breath, fevers, chills, abdominal pain, diarrhea, recent illnesses, un steadiness on his feet, blurry vision, headache. Vital signs were stable. CT of the head was negative for acute intracranial normality but did show old lacunar infarcts bilaterally in the basal ganglia. There were no other CT head to compare to. Patient was admitted for further evaluation of TIA. Note: Patient was recently admitted early 02/2020 for acute decompensated heart failure, right lung pleural effusion requiring thoracentesis of right lung. REVIEW OF SYSTEMS: Neg except what is mentioned above. PAST MEDICAL HISTORY: 1. COPD (3L at home, follows with Dr. Crespo) 2. diastolic CHF (LVEF 65%, 10/2019) 3. JAELYN on CPAP 4. HTN 5. IDDM2 6. CAD s/p several stents in 2017 7. PVD s/p LLE stent 8. Morbid obesity PAST SURGICAL HISTORY: 1. Cholecystectomy 1989 2. Cardiac stenting 2016 3. LLE stenting 2018 FAMILY HISTORY: Father had multiple MIs, at the age of 53. Mother had lung cancer, at the age of 60 SOCIAL HISTORY: Smoker: former Smoker (quit smoking 30 years ago, smoked for about 16 years, 2.5 packs per day) Alcohol: Denies Drugs: denies ALLERGIES: Please see below. HOME MEDICATIONS: Please see below. PHYSICAL EXAMINATION: VS: Please see below CONSTITUTIONAL: No acute distress, resting comfortably, AAO x 3 EYES: PERRLA, EOM intact HENT, MOUTH: Normocephalic, atraumatic, moist mucous membranes, NECK: SUPPLE, no JVD, no lymphadenopathy, no carotid bruit CV: Regular rate and rhythm, S1S2 normal, no murmurs/rubs/gallops RESPIRATORY: Clear to auscultation bilaterally, no rales/rhonchi/wheezes GI: obese abd, BS positive in 4 quadrants, soft, nontender, nondistended, no rebound or guarding, no organomegaly : Deferred MUSCULOSKELETAL: Normal ROM. No cyanosis, clubbing, swelling, joint deformity, extremity edema INTEGUMENTARY: Multiple well healed ulcers on lower ext. Otherwise intact, no rashes, no erythema NEUROLOGIC: Cranial Nerves II-XII are intact, no focal deficits PSYCHIATRIC: Mood and affect are normal LABORATORY DATA: Please see below IMAGING: CT head: Extensive vascular calcification. Mild generalized volume loss. Old lacunar infarcts noted bilaterally in the basal ganglia. Small vessel changes at as previously noted. No acute infarct or hemorrhage seen. No mass lesion is observed. ASSESSMENT: 75-year-old male with past mental history of COPD, diastolic CHF, JAELYN on CPAP, hypertension, diabetes mellitus, CAD status post stents, peripheral vascular disease admitted for further workup of TIA. PLAN: 1. TIA -CT head above -no neurological deficits -F/u Echocardiogram, carotid doppler, neuro checks Q4 hours -ASA, statin 2. Chronic hypoxic respiratory failure on 3 L NC at home -Currently saturating well on home amount oxygen -denies sob, cough, chest pain, sick contacts -C/w home medications, spiriva 3. JAELYN on CPAP -Can use home machine 4. HTN -Stable -C/w home meds 5. DM type II -Levemir 30 U SC QAM, ISS, consistent carb diet, FS AC/HS 6. CAD s/p stent placement -Denies chest pain, sob, diaphoresis -C/w ASA, statin, BB, ranexa, imdur, nitro PRN 7. PVD -Stable -ASA, statin 8. Hypomagnesemia, chronic -C/w mag supplement 9. 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 DVT px -Eliquis BID DISPOSITION: Admitted for further workup above. PT/OT. Laboratory Data Labs 24H Laboratory Tests 2 03/22/20 16:17: Immature Granulocyte % (Auto) 0.7, Neutrophils (%) (Auto) 81.6H, Lymphocytes (%) (Auto) 9.1L, Monocytes (%) (Auto) 7.1H, Eosinophils (%) (Auto) 0.7, Basophils (%) (Auto) 0.8, Neutrophils # (Auto) 7.0, Lymphocytes # (Auto) 0.8L, Monocytes # (Auto) 0.6, Eosinophils # (Auto) 0.1, Basophils # (Auto) 0.1, Nucleated Red Blood Cells % (auto) 0.0, Blood Gas Bicarbonate Standard 29.4, Venous Blood pH 7.469H, Venous Blood Partial Pressure CO2 41.8, Venous Blood Partial Pressure O2 73.2H, Venous Blood Total Carbon Dioxide 31.0H, Venous Blood HCO3 29.7H, Venous Blood Oxygen Saturation 95.1H, Venous Blood Base Excess 5.5H, Anion Gap 7L, Glomerular Filtration Rate 49.6, Osmolality 291, Lactic Acid Level 1.5, Calcium Level 8.1L, Total Bilirubin 0.5, Direct Bilirubin 0.2, Aspartate Amino Transf (AST/SGOT) 11, Alanine Aminotransferase (ALT/SGPT) 10L, Alkaline Phosphatase 78, Ammonia 17, Total Protein 5.6L, Albumin 2.4L, Albumin/Globulin Ratio 0.8, Thyroid Stimulating Hormone (TSH) 2.060 03/22/20 17:48: Coronavirus (COVID-19)(PCR) NEGATIVE CBC/BMP Laboratory Tests 03/22/20 16:17 Home Medications Scheduled Apixaban (Eliquis) 5 Mg Tablet, 5 MG PO BID Aspirin (Aspirin EC) 81 Mg Tablet.dr 81 MG PO DAILY Fluoxetine Hcl (Fluoxetine HCl) 10 Mg Capsule, 30 MG PO DAILY Insulin Aspart (Novolog Flexpen) 100 Unit/Ml Inj, 1 DOSE SC ACHS PER SLIDING SCALE Insulin Glargine,Hum.rec.anlog (Christiano Penaar) 300 Unit/Ml Inj, 30 UNIT SC DAILY Isosorbide Mononitrate (Isosorbide Mononitrate ER) 30 Mg Tab.er.24h, 30 MG PO DAILY Lisinopril (Lisinopril) 2.5 Mg Tab, 2.5 MG PO QHS Magnesium Oxide (Magnesium Oxide) 400 Mg Tab, 400 MG PO DAILY Metoprolol Tartrate (Metoprolol Tartrate) 25 Mg Tab, 12.5 MG PO QHS Omeprazole (Omeprazole) 20 Mg Tab, 20 MG PO BID Ranolazine (Ranexa) 1,000 Mg Tab.er.12h, 1,000 MG PO BID Rosuvastatin Calcium (Rosuvastatin Calcium) 40 Mg Tab, 40 MG PO QHS Salmeterol/Fluticasone (Advair 500-50 Diskus) 28 Puff/Inhaler Aerp, 1 PUFF INH BID Torsemide (Torsemide) 20 Mg Tablet, 40 MG PO BID 0900/1700 Umeclidinium [place] (Incruse Ellipta) 62.5 Mcg/Inh Inh, 1 PUFF INH DAILY Scheduled PRN Acetaminophen (Mapap) 500 Mg Tablet, 1,000 MG PO Q6H PRN for PAIN Albuterol Sulf (Albuterol Sulfate) 2.5 Mg/3 Ml Vial.neb, 2.5 MG INH Q4HP PRN for SHORTNESS OF BREATH Albuterol Sulfate (Ventolin Hfa) 108 Mcg/Act Aer, 2 PUFF INH Q4H PRN for SH ORTNESS OF BREATH Fluticasone Propionate (Fluticasone Propionate) 16 Gm [place].susp, 1 SPRAY NARES DAILY PRN for CONGESTION Nitroglycerin (Nitrostat) 0.4 Mg Subl, 0.4 MG SL NITRO PRN for CHEST PAIN Allergies Coded Allergies: Cephalosporins (Verified Allergy, Intermediate, RASH, 02/18/20) RASH PER Penicillins (Verified Allergy, Intermediate, RASH, 02/18/20) clavulanic acid (Verified Allergy, Intermediate, RASH, 02/18/20) levofloxacin (Verified Allergy, Intermediate, RASH, 02/18/20) A-FIB/CHADSVASC A-FIB History Current/History of A-Fib/PAF?: No Current PO Anticoag Therapy: Yes Age/Risk Factor Scoring CHADSVASC: CHADSVASC Response (Comments) Value Age Risk Factor Age >/= 75 years old 2 Gender Risk Factor Male 0 Hx of CHF Yes 1 Hx of HTN Yes 1 Hx of Stroke/TIA/or VTE No 0 Hx of Diabetes Yes 1 Hx of Vascular Disease Yes 1 Total 6 Treatment Treatment ordered: Other Other anticoagulant ordered: Diane Pomap MD Mar 22, 2020 19:20
[2020-03-22] MEDS ORDERED: ALBUTEROL SULFATE 2.5 MG/0.5 ML INH NEB SOLN INH PRN (20:00)
[2020-03-22] MEDS: HumaLOG INSULIN (NovoLOG) PER UNIT SC SCH (21:00)
[2020-03-22 23:15] VITALS: BP 115/65
[2020-03-22] MEDS: ROSUVASTATIN 10 MG TAB (CRESTOR) PO SCH (23:24)
[2020-03-22] MEDS: OMEPRAZOLE 20 MG CAP PO SCH (23:25)
[2020-03-22] MEDS: APIXABAN 5 MG TAB (ELIQUIS) PO SCH (23:25)
[2020-03-22] MEDS: LISINOPRIL *2.5 MG* TAB PO SCH (23:26)
[2020-03-22] MEDS: TORSEMIDE 20 MG TAB PO SCH (23:26)
[2020-03-22] MEDS: METOPROLOL TART 25 MG TABLET PO SCH (23:27)
[2020-03-22] MEDS: ADVAIR HFA 230/21MCG INHALER INH SCH (23:44)
[2020-03-23] MEDS: RANOLAZINE 500 MG ER TAB PO SCH ×3 (00:02→20:10)
--- NOTE | 2020-03-23 00:57 | ECGEPIP ---
[facility] - ED Test Date: 2020-03-22 Pat Name: CARTER DE LA ROSA Department: Room: - Gender: Male [employer]: : [id number] Requested By: Malka Greenwood Order Number: [id number] Reading MD: José Miguel Aggarwal Measurements Intervals [place] Rate: 68 P: 10 SD: 170 QRS: 73 QRSD: 102 T: -18 QT: 344 QTc: 366 Interpretive Statements SINUS RHYTHM WITH OCCASIONAL SUPRAVENTRICULAR PREMATURE COMPLEXES INCOMPLETE RIGHT BUNDLE BRANCH BLOCK NONSPECIFIC ST & T-WAVE ABNORMALITY SIMILAR TO 02/18/20 Electronically Signed on 03-23-2020 0:56:52 EST by José Miguel Aggarwal
--- NOTE | 2020-03-23 03:06 | REPVR ---
PROCEDURE INFORMATION: Exam: US Duplex Bilateral Extracranial Arteries Exam date and time: 03/23/2020 2:01 AM Age: 75 years old Clinical indication: Altered mental status/memory loss; Other: TIA; Additional info: AMS, TIA TECHNIQUE: Imaging protocol: Real-time Duplex ultrasound scan of the bilateral carotid and vertebral arteries combining jackson scale, color Doppler and spectral waveform analysis. Bilateral exam. COMPARISON: No relevant prior studies available. FINDINGS: Right common carotid artery: The proximal right common carotid artery demonstrates velocity of 111 cm/s, mid velocity of 61 cm/s and distal velocity of 46 cm/s. Right internal carotid artery: The proximal right internal carotid artery demonstrates velocity of 79 cm/s. No velocity or flow is demonstrated in the mid right internal carotid artery. Right external carotid artery: The right external carotid artery demonstrates velocity of 77 cm/s. Right vertebral artery: The right vertebral artery is not seen. Left common carotid artery: Plaque is noted in the left common carotid artery. The proximal left common carotid artery demonstrates velocity of 72 cm/s with mid velocity of 43 cm/s and distal velocity of 23 cm/s. Left internal carotid artery: The left internal carotid artery appears to be occluded. Left external carotid artery: Left external carotid velocity is 146 cm/s. Left vertebral artery: The left vertebral artery demonstrates antegrade flow with velocity of 57 cm/s. IMPRESSION: 1. Bilateral plaque. 2. Occlusion of the left internal carotid artery. 3. Question of occlusion or very high-grade stenosis of the right internal carotid artery. REFERENCES: SRU CRITERIA. The degree of internal carotid artery stenosis is based on criteria defined by the Society of Radiologists in Ultrasound (SRU). Normal is no stenosis. Mild is less than 50% stenosis. Moderate is 50-69% stenosis. Severe is greater than 69% stenosis to near occlusion. Near occlusion is a markedly narrowed lumen. Total occlusion is no detectable patent lumen. Electronically signed by: Sorin Caldera On 03/23/2020 03:06:03 AM
[2020-03-23 06:00] VITALS: BP 108/43
[2020-03-23 06:57] LABS: HEMATOCRIT 27.5 % (42.0-52.0); HEMOGLOBIN 7.9 g/dl (13.5-17.5); MEAN CORPUSCULAR HGB CONC 28.7 g/dl (32.0-36.5); MEAN CORPUSCULAR VOLUME 83.6 fl (80.0-96.0); PLATELET COUNT, AUTOMATED 199 10^3/uL (150-450); RED BLOOD COUNT 3.29 10^6/uL (4.30-6.10)
[2020-03-23 07:18] LABS: ALBUMIN 2.4 GM/DL (3.2-5.2); BILIRUBIN,TOTAL 0.5 MG/DL (0.2-1.0); CALCIUM LEVEL 8.2 MG/DL (8.8-10.2); CREATININE FOR GFR 1.44 MG/DL (0.70-1.30); GLOMERULAR FILTRATION RATE 50.8 (>42); POTASSIUM SERUM 3.3 MEQ/L (3.5-5.1); TOTAL PROTEIN 6.2 GM/DL (6.4-8.2)
[2020-03-23] MEDS: TIOTROPIUM INHALER/CAPSULE (SPIRIVA) INH SCH (07:37)
[2020-03-23] MEDS: ADVAIR HFA 230/21MCG INHALER INH SCH ×2 (07:37→20:44)
[2020-03-23] MEDS: POTASSIUM CHLORIDE 10 MEQ SR TABLET PO SCH ×2 (08:12→10:19)
[2020-03-23] MEDS: ASPIRIN 81 MG ENTERIC TAB PO SCH (08:13)
[2020-03-23] MEDS: FLUoxetine 10 MG CAP PO SCH (08:13)
[2020-03-23] MEDS: MAGNESIUM OXIDE 400 MG TAB (MAG-OX) PO SCH (08:13)
[2020-03-23] MEDS: OMEPRAZOLE 20 MG CAP PO SCH ×2 (08:13→20:10)
[2020-03-23] MEDS: ISOSORBIDE MON. (IMDUR) 30 MG XR TAB PO SCH (08:14)
[2020-03-23] MEDS: APIXABAN 5 MG TAB (ELIQUIS) PO SCH ×2 (08:14→20:11)
[2020-03-23] MEDS: TORSEMIDE 20 MG TAB PO SCH ×2 (08:15→17:17)
[2020-03-23] MEDS: LEVEMIR (INSULIN DETEMIR) 1 UNITS/0.01ML SC SCH (08:19)
[2020-03-23] MEDS: HumaLOG INSULIN (NovoLOG) PER UNIT SC SCH ×4 (08:19→20:08)
[2020-03-23 08:36] LABS: MAGNESIUM LEVEL 2.2 MG/DL (1.8-2.4)
[2020-03-23] MEDS ORDERED: ISOVUE-370 76% 100ML VIAL As Ordered ONE (12:20)
--- NOTE | 2020-03-23 13:20 | REPVR ---
PROCEDURE INFORMATION: Exam: CT Angiography Neck With Contrast Exam date and time: 03/23/2020 12:46 PM Age: 75 years old Clinical indication: Screening exam; Carotid; Additional info: Further eval carotid arteries TECHNIQUE: Imaging protocol: Computed tomography angiography of the neck with intravenous contrast. 3D rendering (Not supervised by radiologist): MIP and/or 3D reconstructed images were created by the technologist. Radiation optimization: All CT scans at this facility use at least one of these dose optimization techniques: automated exposure control; mA and/or kV adjustment per patient size (includes targeted exams where dose is matched to clinical indication); or iterative reconstruction. Contrast material: ISOVUE 370; Contrast volume: 75 ml; Contrast route: INTRAVENOUS (IV); COMPARISON: US Duplex,carotid (complete) 09/19/2017 11:09 AM FINDINGS: Right common carotid artery: No stenosis. No dissection or occlusion. Right internal carotid artery: Atherosclerotic calcifications are present at the right carotid bifurcation and within the proximal right internal carotid artery. This is causing approximately 40% stenosis. There is significant tortuosity of the distal right cervical ICA. There is severe stenosis of the right cavernous ICA. Right external carotid artery: No occlusion or stenosis of the origin. Right vertebral artery: The right vertebral artery is congenitally hypoplastic, terminating in a posteroinferior cerebellar artery. Left common carotid artery: No stenosis. No dissection or occlusion. Left internal carotid artery: The left internal carotid artery is occluded, beginning at its origin. The ICA is occluded to the paraclinoid segment. Collateral flow is noted in the left carotid terminus. There is persistent origin of the left posterior cerebral artery. Left external carotid artery: No occlusion or stenosis of the origin. Left vertebral artery: No stenosis. No dissection or occlusion. Aorta: Atherosclerotic calcifications are noted within the aortic arch and its branches. Bones/joints: Severe degenerative changes of the cervical spine are present. Soft tissues: Normal. No significant soft tissue swelling. Lungs: Bilateral pleural effusions are present. IMPRESSION: 1. Occluded left internal carotid artery 2. Chronic findings as discussed above. REFERENCES: NASCET CRITERIA. The degree of internal carotid artery stenosis is based on NASCET criteria. Normal is no stenosis. Mild is less than 50% stenosis. Moderate is 50-69% stenosis. Severe is 70% to 99% stenosis. Total occlusion is no detectable patent lumen. Electronically signed by: Mahesh Greer On 03/23/2020 13:20:50 PM
[2020-03-23 14:00] VITALS: BP 102/56
--- NOTE | 2020-03-23 16:05 | IPNPDOC ---
Text Note Date of Service The patient was seen on 03/23/20. NOTE Subjective: Mr. Alberto is a 75-year-old male with a past medical history of COPD, diastolic CHF, JAELYN on CPAP, hypertension, diabetes mellitus, CAD s/p stents, EVD to presented to the emergency department after increased upper extremity shaking and an episode of transient altered mental status. He denies having any history of consciousness, seizure activity, fall, loss of bowel or bladder, chest pain, palpitations during the episode. Reports to be having similar episodes since couple of weeks and later having some weakness in his arms, which improved gradually. Patient seen on bedside today, he has no acute issues overnight, reports to have a good night sleep. He denies having any headaches, visual changes, chest pain, abdominal pain, diarrhea, dysuria. Objective: General: Patient is awake, alert, oriented times three, laying in bed , no apparent distress. Eyes: Conjunctiva clear, pupils equal round and reactive to light. Cardiovascular: S1, S2, normal rhythm, no murmur, rub, or gallop Respiratory: Chest is clear to auscultation bilaterally, No rhonchi, wheezes or rubs. Abdomen: Soft, bowel sounds positive, no bruits. No tenderness on palpation. Extremities: No clubbing or cyanosis. No edema, no tenderness. Central nervous system (GEOLOGICAL E LOGGER): Awake, alert and fully oriented. Cranial nerves III-XII grossly intact. Motor: Strength normal, patient moves all extremities. Sensory: grossly normal to touch and pin prick. Skin: No rashes, lesions, ulcerations, subcutaneous nodules or induration. Imaging: CT head without contrast: 03/22/2020, reported as extensive vascular calcification. Mild generalized volume loss. Old lacunar infarcts noted bilaterally in the basal ganglia. Small vessel changes at as previously noted. No acute infarct or hemorrhage seen. No mass lesion is observed. Duplex carotid: 03/22/2020, reported as bilateral plaque, occlusion of the left internal carotid artery. Question of occlusion or very high grade stenosis of the right internal carotid artery. REFERENCES: SRU CRITERIA. The degree of internal carotid artery stenosis is based on criteria defined by the Society of Radiologists in Ultrasound (SRU). Normal is no stenosis. Mild is less than 50% stenosis. Moderate is 50-69% stenosis. Severe is greater than 69% stenosis to near occlusion. Near occlusion is a markedly narrowed lumen. Total occlusion is no detectable patent lumen. CT angios neck: 03/23/2020, reported as Right common carotid artery: No stenosis. No dissection or occlusion. Right internal carotid artery: Atherosclerotic calcifications are present at the right carotid bifurcation and within the proximal right internal carotid artery. This is causing approximately 40% stenosis. There is significant tortuosity of the distal right cervical ICA. There is severe stenosis of the right cavernous ICA. Right external carotid artery: No occlusion or stenosis of the origin. Right vertebral artery: The right vertebral artery is congenitally hypoplastic, terminating in a posteroinferior cerebellar artery. Left common carotid artery: No stenosis. No dissection or occlusion. Left internal carotid artery: The left internal carotid artery is occluded, beginning at its origin. The ICA is occluded to the paraclinoid segment. Collateral flow is noted in the left carotid terminus. There is persistent origin of the left posterior cerebral artery. Left external carotid artery: No occlusion or stenosis of the origin. Left vertebral artery: No stenosis. No dissection or occlusion. Assessment: 75-year-old male patient with past medical history of COPD, di astolic CHF, JAELYN on CPAP, hypertension, diabetes mellitus, CAD status post stent, PVD admitted for further workup of TIA. Plan: TIA: - No neurological deficits, patient carotid Doppler and CT angiography of the neck which showed complete occlusion of left internal carotid artery, and 40% stenosis of right internal carotid artery. As there is no vascular surgeon healthcare administration intern today, [facility] was contacted and they have no beds available for transfer. Later vascular surgeon at [facility], Dr. Lugo was contacted regarding the patient, he requested for today CTA neck to be done and told he would be following the patient outpatient. - Not sure if [facility] has vascular surgeon healthcare administration intern tomorrow if so will try to reach out to them. - Echo is ordered will try to follow up on report. - Will continue neuro checks Q4 hours. Chronic hypoxic respiratory failure: - Patient was on 3 L of oxygen at home and reports to be on 7 L of oxygen at night. - Denies any shortness of breath, cough, chest pain - Will continue home medication, Advair, Proventil, spiriva, Flonase Hypertension: - Patient with pressure was stable overnight -will continue home medication list lisinopril 2.5 mg, metoprolol 12.5 mg, nitroglycerin 0.4 mg, torsemide 40 mg 3 times a day. Obstructive sleep apnea: - Patient is on CPAP at home. - Continue Using It. Diabetes mellitus type 2: - Patient is on insulin sliding scale. - Levemir 30 units subcutaneous and insulin sliding - On tinea consistent carb diet - Monitor sugars levels. CAD S/p stents in past: - Will continue aspirin 81 mg, rosuvastatin 40 mg, beta blockers, Ranexa, Imdur 30 mg nitroglycerin when necessary. Peripheral vascular disease: - Will continue aspirin 81 mg, statin 40 mg Hypomagnesemia, chronic: -Will Continue magnesium supplementation. - The patient has low potassium level of 3.3 today morning replaced with oral potassium. Diastolic congestive heart failure, not in exacerbation: - Follow up on echocardiogram. - Patient follows with Dr. Novak disc pad plate filler - Will continue metoprolol 1.5 MG, lisinopril -2.5 MG. Depression: - Will continue fluoxetine 30 mg GERD: - Will continue Protonix 20 mg DVT prophylaxis: - Continue Eliquis 5 MG twice a day Attending Note: Patient seen and examined independently. Agree with resident's note. VS,Jamesbone, I+O VS, Fishbone, I+O Laboratory Tests 03/22/20 16:17 03/23/20 06:40 Vital Signs Date Time Temp Pulse Resp B/P (MAP) Pulse Ox O2 Delivery O2 Flow Rate FiO2 03/23/20 08:00 5.0 03/23/20 06:00 98.9 60 20 108/43 (64) 91 Nasal Cannula 28 I&O- Last 24 Hours up to 6 AM 03/23/20 06:00 Intake Total 450 ml Output Total 650 ml Balance -200 ml Brandee Coto MD Mar 23, 2020 16:05 NAFISA BALL MD Mar 23, 2020 17:35
[2020-03-23 17:18] VITALS: BP 118/59
[2020-03-23] MEDS: ROSUVASTATIN 10 MG TAB (CRESTOR) PO SCH (20:10)
[2020-03-23] MEDS: METOPROLOL TART 25 MG TABLET PO SCH (20:12)
[2020-03-23] MEDS: LISINOPRIL *2.5 MG* TAB PO SCH (20:12)
[2020-03-23 22:00] VITALS: BP 109/56
[2020-03-24] VITALS (10 sets, daily range): BP systolic 86–120; BP diastolic 39–67
[2020-03-24 06:41] LABS: HEMATOCRIT 29.1 % (42.0-52.0); HEMOGLOBIN 8.5 g/dl (13.5-17.5); MEAN CORPUSCULAR HEMOGLOBIN 24.5 pg (27.0-33.0); MEAN CORPUSCULAR HGB CONC 29.2 g/dl (32.0-36.5); MEAN CORPUSCULAR VOLUME 83.9 fl (80.0-96.0); PLATELET COUNT, AUTOMATED 182 10^3/uL (150-450); RED BLOOD COUNT 3.47 10^6/uL (4.30-6.10); WHITE BLOOD COUNT 9.5 10^3/uL (4.0-10.0)
[2020-03-24 06:55] LABS: ALBUMIN 2.4 GM/DL (3.2-5.2); BILIRUBIN,TOTAL 0.6 MG/DL (0.2-1.0); CREATININE FOR GFR 1.33 MG/DL (0.70-1.30); GLOMERULAR FILTRATION RATE 55.7 (>42); POTASSIUM SERUM 3.5 MEQ/L (3.5-5.1); TOTAL PROTEIN 5.7 GM/DL (6.4-8.2)
[2020-03-24] MEDS: HumaLOG INSULIN (NovoLOG) PER UNIT SC SCH ×4 (07:30→21:00)
[2020-03-24] MEDS: ADVAIR HFA 230/21MCG INHALER INH SCH ×2 (08:13→19:45)
[2020-03-24] MEDS: TIOTROPIUM INHALER/CAPSULE (SPIRIVA) INH SCH (08:13)
[2020-03-24] MEDS: LEVEMIR (INSULIN DETEMIR) 1 UNITS/0.01ML SC SCH ×2 (09:00→13:35)
[2020-03-24] MEDS: ISOSORBIDE MON. (IMDUR) 30 MG XR TAB PO SCH (09:00)
[2020-03-24] MEDS: TORSEMIDE 20 MG TAB PO SCH ×2 (09:00→17:00)
[2020-03-24] MEDS: OMEPRAZOLE 20 MG CAP PO SCH ×2 (09:15→21:15)
[2020-03-24] MEDS: FLUoxetine 10 MG CAP PO SCH (09:15)
[2020-03-24] MEDS: APIXABAN 5 MG TAB (ELIQUIS) PO SCH ×2 (09:15→21:15)
[2020-03-24] MEDS: ASPIRIN 81 MG ENTERIC TAB PO SCH (09:15)
[2020-03-24] MEDS: RANOLAZINE 500 MG ER TAB PO SCH ×2 (09:15→21:15)
[2020-03-24] MEDS: MAGNESIUM OXIDE 400 MG TAB (MAG-OX) PO SCH (09:15)
[2020-03-24] MEDS ORDERED: SODIUM CHLORIDE 0.9% 1000ML IV ONE ×2 (09:30→14:30)
--- NOTE | 2020-03-24 10:10 | ECHO ---
DATE OF PROCEDURE: 03/23/2020 Age: 75 Gender: M Height: 173 cm Weight: 110 kg REFERRING PHYSICIAN: Dr. Diane Jara INDICATION: Transient ischemic attack (TIA) MEASUREMENTS: IVS 1.9 LV 3.5 LVPW 1.7 LA 3.1 Aorta 3.6 IVC 1.9 Mitral E wave velocity is 88; mitral A wave 98 FINDINGS: This study is of fair technical quality with challenging visualization. The patient is in sinus rhythm. Left ventricle is normal size. Moderately severe left ventricular hypertrophy is present. Overall, preserved systolic function, estimated ejection fraction (EF) 70-75%. I do not appreciate any distinct segmental wall motion abnormalities but the visualization was limited. Right ventricle was poorly seen and appears at least mildly dilated. Left atrium is normal. The right atrium was poorly visualized. Aortic valve is heavily sclerotic but it has three cusps and grossly preserved mobility. Mitral, tricuspid and pulmonic valves appear normal. Trivial pericardial effusion is noted. Inferior vena cava is at the upper limits of normal size and appropriately collapses with inspiration indicative of likely normal or mildly elevated central venous pressure. Aortic root is normal. Aortic arch was poorly seen. Abdominal aorta appears normal. Doppler interrogation of the aortic valve reveals trivial stenosis and no insufficiency. There is competent mitral valve. There is mild tricuspid insufficiency. Calculated pulmonary artery pressure is at least in the high 50s or low 60s corresponding to moderately severe pulmonary hypertension. Evaluation of diastolic function is incomplete but based on mitral inflow pattern, there is likely grade 1 diastolic dysfunction. CONCLUSIONS: 1. Study is of fair technical quality, underlying sinus rhythm. 2. Normal left ventricle (LV) size with moderately severe left ventricular hypertrophy (LVH), hyperdynamic left ventricular systolic function (estimated left ventricular ejection fraction 70-75%) and grade 1 diastolic dysfunction. 3. Prominent aortic sclerosis with trivial stenosis and no insufficiency. 4. Competent mitral valve. 5. Mild tricuspid insufficiency, moderately severe pulmonary hypertension. 6. Probably normal or mildly elevated central venous pressure. MTDD
--- NOTE | 2020-03-24 17:25 | IPNPDOC ---
Text Note Date of Service The patient was seen on 03/24/20. NOTE Mr. Alberto is a 75-year-old male with a past medical history of COPD, diastolic CHF, JAELYN on CPAP, hypertension, diabetes mellitus, CAD s/p stents, EVD to presented to the emergency department after increased upper extremity shaking and an episode of transient altered mental status. He denies having any history of consciousness, seizure activity, fall, loss of bowel or bladder, chest pain, palpitations during the episode. Reports to be having similar episodes since couple of weeks and later having some weakness in his arms, which improved gradually. Subjective: Patient seen at bedside today. He reports having no acute issues overnight, he reports having good night sleep. Denies having any headache, chest pain, abdominal pain, diarrhea or constipation, dysuria. Objective: General: Patient is awake, alert, oriented times three, laying in bed , no apparent distress. Eyes: Conjunctiva clear, pupils equal round and reactive to light. Cardiovascular: S1, S2, normal rhythm, no murmur, rub, or gallop Respiratory: Chest is clear to auscultation bilaterally, No rhonchi, wheezes or rubs. Abdomen: Soft, bowel sounds positive, no bruits. No tenderness on palpation. Extremities: No clubbing or cyanosis. No edema, no tenderness. Central nervous system (CRACKING UNIT OPERATOR): Awake, alert and fully oriented. Skin: No rashes, lesions, ulcerations, subcutaneous nodules or induration. Imaging: CT head without contrast: 03/22/2020, reported as extensive vascular calcification. Mild generalized volume loss. Old lacunar infarcts noted bilaterally in the basal ganglia. Small vessel changes at as previously noted. No acute infarct or hemorrhage seen. No mass lesion is observed. Duplex carotid: 03/22/2020, reported as bilateral plaque, occlusion of the left internal carotid artery. Question of occlusion or very high grade stenosis of the right internal carotid artery. REFERENCES: SRU CRITERIA. The degree of internal carotid artery stenosis is based on criteria defined by the Society of Radiologists in Ultrasound (SRU). Normal is no stenosis. Mild is less than 50% stenosis. Moderate is 50-69% stenosis. Severe is greater than 69% stenosis to near occlusion. Near occlusion is a markedly narrowed lumen. Total occlusion is no detectable patent lumen. CT angios neck: 03/23/2020, reported as Right common carotid artery: No stenosis. No dissection or occlusion. Right internal carotid artery: Atherosclerotic calcifications are present at the right carotid bifurcation and within the proximal right internal carotid artery. This is causing approximately 40% stenosis. There is significant tortuosity of the distal right cervical ICA. There is severe stenosis of the right cavernous ICA. Right external carotid artery: No occlusion or stenosis of the origin. Right vertebral artery: The right vertebral artery is congenitally hypoplastic, terminating in a posteroinferior cerebellar artery. Left common carotid artery: No stenosis. No dissection or occlusion. Left internal carotid artery: The left internal carotid artery is occluded, beginning at its origin. The ICA is occluded to the paraclinoid segment. Collateral flow is noted in the left carotid terminus. There is persistent origin of the left posterior cerebral artery. Left external carotid artery: No occlusion or stenosis of the origin. Left vertebral artery: No stenosis. No dissection or occlusion. Assessment: 75-year-old male patient with past medical history of COPD, diastolic CHF, JAELYN on CPAP, hypertension, diabetes mellitus, CAD s/P stent, PVD admitted for the further workup of TIA. 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 - Patient was hypotensive this morning(105/52 mmHg), and his torsemide and Imdur were held for today as patient was hypotensive. - Patient did get to 250 mL bolus in the morning. - Patient was on torsemide 20 mg at home twice a day, will switch him to the same dosage from tomorrow based on his volume status. - Will refer him to vascular surgeon at [facility], and Dr. Lugo Outpatient to get the procedure done on his right carotid. Dr. Lugo was already aware of the case. - Will continue neurologic checks every 4 hours - His echocardiogram reported as normal left ventricular size with moderately severe left ventricular hypertrophy, hyperdynamic left ventricular systolic function estimated LVEF is 70-75% and grade 1 diastolic dysfunction. Prominent aortic sclerosis with trivial stenosis and no insufficiency. Competent mitral valve. Mild tricuspid insufficiency moderately severe pulmonary hypertension. P robably normal or mildly elevated central venous pressure. Off note: Patient did have an episode of hypotension around 2 PM, and as per nurse is he went limp for about 15sec patient wasn't with it, this happened when nurse put him up at the edge of the bed for eating his lunch wasn't able to hold on to his fork. He did not lose consciousness, his neuro checks were normal at that time per nurse, his blood pressure after laying in supine was about 87/39 mm hg. he was given another 250 mL of bolus fluid at that point and his blood pressure came back to 10 4/45mm Hg. Patient did not have any chest pain, headaches or palpitation during this episode. - If patient has any episode overnight get a stat EKG, troponins, check the volume status and hold cardiac medication. Chronic hypoxic respiratory failure: - Patient was on 3 L of oxygen at home and reports to be on 7 L of oxygen at night. - Will continue his home medications Advair, Proventil, Spiriva, Flonase. -Patient denied having any shortness of breath, cough, chest pain Hypertensive: - Patient came in with elevated blood pressures but was stable overnight and in the morning he had a low blood pressure of systolic and 90s. He was given 250 mL of fluid bolus. - Will continue lisinopril 2.5 mg, metoprolol 12.5 mg, nitroglycerin 0.4 mg, his torsemide 40 mg was held in the morning. Patient was on torsemide 20 mg twice a day at home so will start on the dose from tomorrow morning if patient is not hypotensive. JAELYN: - Patient is on CPAP at home. -If its available can continue using it. Diabetes mellitus type 2: - Patient is on insulin sliding scale. - His Levemir was held in the a.m. as his blood sugar was 91. - He was given 15 units of Levemir at around 1:30 PM as his blood glucose was 202.( Patient takes 30 units of insulin at home, so will start him on 15 units of Levemir long-acting and the rest can be covered with the short-acting during mealtimes) - Will continue consistent carb diet. - Monitor sugar levels. CAD s/p stents in the past: - Will continue aspirin 81 mg, rosuvastatin 40 mg, metoprolol 12.5 mg, ranexa, nitroglycerin when necessary Peripheral vascular disease: - Will continue aspirin 81 mg, statin 40 mg Hypomagnesemia, chronic: - Will continue magnesium supplements Diastolic heart failure, not in exacerbation: - Echo reports left ventricular EF 70-75%. Rest as above. - Patient follows with Dr. Novak customs collector - Continue metoprolol 12.5 mg, lisinopril 2.5 mg Depression: We will continue fluoxetine 30 mg GERD: - Will continue Protonix 20 mg DVT prophylaxis: - Continue Eliquis 5 mg Disposition: he had hypotensive episodes during the day, we will monitor him overnight and if any hypotensive episodes during the night will try to get stat EKG, troponins, check for volume status. We'll monitor him overnight and if he is stable and if cleared by PT tomorrow will plan for discharge. VS,Fishbone, I+O VS, Fishbone, I+O Laboratory Tests 03/24/20 06:06 Vital Signs Date Time Temp Pulse Resp B/P (MAP) Pulse Ox O2 Delivery O2 Flow Rate FiO2 03/24/20 14:19 65 104/45 (64) 03/24/20 06:00 Nasal Cannula 5.0 03/24/20 05:50 98.5 17 97 03/23/20 06:00 28 I&O- Last 24 Hours up to 6 AM 03/24/20 06:00 Intake Total 1810 ml Output Total 2250 ml Balance -440 ml Brandee Coto MD Mar 24, 2020 16:38
[2020-03-24] MEDS: METOPROLOL TART 25 MG TABLET PO SCH (21:00)
[2020-03-24] MEDS: LISINOPRIL *2.5 MG* TAB PO SCH (21:00)
[2020-03-24] MEDS: ROSUVASTATIN 10 MG TAB (CRESTOR) PO SCH (21:16)
[2020-03-25 06:00] VITALS: BP 98/67
[2020-03-25 06:34] LABS: HEMATOCRIT 27.1 % (42.0-52.0); HEMOGLOBIN 7.9 g/dl (13.5-17.5); MEAN CORPUSCULAR HEMOGLOBIN 24.2 pg (27.0-33.0); MEAN CORPUSCULAR HGB CONC 29.2 g/dl (32.0-36.5); MEAN CORPUSCULAR VOLUME 82.9 fl (80.0-96.0); PLATELET COUNT, AUTOMATED 187 10^3/uL (150-450); RED BLOOD COUNT 3.27 10^6/uL (4.30-6.10); WHITE BLOOD COUNT 7.8 10^3/uL (4.0-10.0)
[2020-03-25 08:31] LABS: ALBUMIN 2.4 GM/DL (3.2-5.2); ALT/SGPT < 6 U/L (12-78); BILIRUBIN,TOTAL 0.5 MG/DL (0.2-1.0); BLOOD UREA NITROGEN 18 MG/DL (7-18); CARBON DIOXIDE LEVEL 30 MEQ/L (21-32); CHLORIDE LEVEL 102 MEQ/L (98-107); GLOMERULAR FILTRATION RATE > 60.0 (>42); GLUCOSE, FASTING 109 MG/DL (70-100); POTASSIUM SERUM 3.1 MEQ/L (3.5-5.1); SODIUM LEVEL 139 MEQ/L (136-145); TOTAL PROTEIN 5.3 GM/DL (6.4-8.2)
[2020-03-25] MEDS: HumaLOG INSULIN (NovoLOG) PER UNIT SC SCH ×4 (08:41→21:00)
[2020-03-25] MEDS ORDERED: POTASSIUM CHLORIDE 10 MEQ SR TABLET PO ONE ×3 (08:45→11:00)
[2020-03-25] MEDS: TORSEMIDE 20 MG TAB PO SCH ×2 (08:46→16:15)
[2020-03-25] MEDS: ISOSORBIDE MON. (IMDUR) 30 MG XR TAB PO SCH (08:46)
[2020-03-25 08:56] LABS: MAGNESIUM LEVEL 2.3 MG/DL (1.8-2.4)
[2020-03-25] MEDS: FLUoxetine 10 MG CAP PO SCH (09:00)
[2020-03-25] MEDS: LEVEMIR (INSULIN DETEMIR) 1 UNITS/0.01ML SC SCH (09:00)
[2020-03-25] MEDS: APIXABAN 5 MG TAB (ELIQUIS) PO SCH ×2 (09:00→20:59)
[2020-03-25] MEDS: RANOLAZINE 500 MG ER TAB PO SCH ×2 (09:00→21:01)
[2020-03-25] MEDS: OMEPRAZOLE 20 MG CAP PO SCH ×2 (09:00→20:59)
[2020-03-25] MEDS: ASPIRIN 81 MG ENTERIC TAB PO SCH (09:01)
[2020-03-25] MEDS: MAGNESIUM OXIDE 400 MG TAB (MAG-OX) PO SCH (09:01)
[2020-03-25] MEDS: TIOTROPIUM INHALER/CAPSULE (SPIRIVA) INH SCH (09:20)
[2020-03-25] MEDS: ADVAIR HFA 230/21MCG INHALER INH SCH ×2 (09:21→20:00)
--- NOTE | 2020-03-25 11:31 | IPNPDOC ---
Text Note Date of Service The patient was seen on 03/25/20. NOTE Mr. Alberto is a 75-year-old male with a past medical history of COPD, diastolic CHF, JAELYN on CPAP, hypertension, diabetes mellitus, CAD s/p stents, EVD to presented to the emergency department after increased upper extremity shaking and an episode of transient altered mental status. He denies having any history of consciousness, seizure activity, fall, loss of bowel or bladder, chest pain, palpitations during the episode. Reports to be having similar episodes since couple of weeks and later having some weakness in his arms, which improved gradually. Subjective: Patient seen at bedside today. He denies having any acute issues overnight, he reports having good night sleep. He denies having any chest pain, palpitations, headache, abdominal pain, dysuria, diarrhea. The morning when he stood him up for PT his blood pressure did drop to 97/41 mm Hg and couldn't continue the session. He denies having any symptoms during this episode. Objective: General: Patient is awake, alert, oriented times three, laying in bed , no apparent distress. Cardiovascular: S1, S2, normal rhythm, no murmur, rub, or gallop Respiratory: Chest is clear to auscultation bilaterally, No rhonchi, wheezes or rubs. Abdomen: Soft, bowel sounds positive, no bruits. No tenderness on palpation. Extremities: No clubbing or cyanosis. No edema, no tenderness. 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 Skin: He did have a Band-Aid wrapped around his left wrist, from the wound he had prior to coming to the hospital. He reports it was bleeding yesterday. Imaging: CT head without contrast: 03/22/2020, reported as extensive vascular calcification. Mild generalized volume loss. Old lacunar infarcts noted bilaterally in the basal ganglia. Small vessel changes at as previously noted. No acute infarct or hemorrhage seen. No mass lesion is observed. Duplex carotid: 03/22/2020, reported as bilateral plaque, occlusion of the left internal carotid artery. Question of occlusion or very high grade stenosis of the right internal carotid artery. REFERENCES: SRU CRITERIA. The degree of internal carotid artery stenosis is based on criteria defined by the Society of Radiologists in Ultrasound (SRU). Normal is no stenosis. Mild is less than 50% stenosis. Moderate is 50-69% stenosis. Severe is greater than 69% stenosis to near occlusion. Near occlusion is a markedly narrowed lumen. Total occlusion is no detectable patent lumen. CT angios neck: 03/23/2020, reported as Right common carotid artery: No stenosis. No dissection or occlusion. Right internal carotid artery: Atherosclerotic calcifications are present at the right carotid bifurcation and within the proximal right internal carotid artery. This is causing approximately 40% stenosis. There is significant tortuosity of the distal right cervical ICA. There is severe stenosis of the right cavernous ICA. Right external carotid artery: No occlusion or stenosis of the origin. Right vertebral artery: The right vertebral artery is congenitally hypoplastic, terminating in a flight attendant ramp oinferior cerebellar artery. Left common carotid artery: No stenosis. No dissection or occlusion. Left internal carotid artery: The left internal carotid artery is occluded, beginning at its origin. The ICA is occluded to the paraclinoid segment. Collateral flow is noted in the left carotid terminus. There is persistent origin of the left posterior cerebral artery. Left external carotid artery: No occlusion or stenosis of the origin. Left vertebral artery: No stenosis. No dissection or o cclusion. Assessment: 75-year-old male patient with past medical history of COPD, diastolic CHF, JAELYN on CPAP, hypertension, diabetes mellitus, CAD s/P stent, PVD admitted for the further workup of TIA. 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 Most likely his symptoms are attributed to this. - Patient did come with hypertension on the initial presentation but his blood pressure was well controlled and now he is hypotensive when he gets out of the bed or sleeping to sitting position. He did have a hypotensive episode(94/48 mm Hg) without symptoms when PT was working with him this morning. - Will hold off of his torsemide and Imdur for now as patient is still hypotensive - Vascular surgeon Dr. Lugo at [facility] was contacted regarding the case as [facility] doesn't have vascular surgeon coverage during this week. Dr. Lugo wants to see the patient outpatient and plan further for possible endarterectomy. - Will give a referral on discharge to vascular surgeon Dr. Lugo at [facility]. - Continue neuro checks every 4 hours - Patient has an LVEF of 70-75% and grade 1 diastolic dysfunction. Chronic hypoxic respiratory failure: -Patient and is on 3 L of oxygen at home and reports to be on 7 L of oxygen at night. - He is requiring about 3-5 L oxygen at rest and about 7 L of oxygen at night in the hospital - He reports having some dryness in his nose will give him nasal saline spray. - Will continue his home medication and when, Proventil, Spiriva, Flonase. Hypertension: - Patient came in to the hospital with elevated blood pressures but his blood pressure overnight was 102/65 mm Hg, but patient was having hypotensive episodes whenever he is out of bed and is dropping to 80s to 90s systolic. - Will hold off on his torsemide 20 mg, Imdur for today. - If further needed will try to give him 250 bolus of fluid if his blood pressure drops further. - Will continue lisinopril 2.5 mg, metoprolol 12.5 mg, nitroglycerin 0.4 mg. Obstructive sleep apnea: - Patient is on CPAP at home, and on 7 L of oxygen at nighttime -Patient is requiring 7 L of oxygen at nighttime, 3-5 L of oxygen during the day. Diabetes mellitus type 2: -Patient is on insulin sliding scale. - His blood sugar levels this morning were 109. - Will continue Levemir 15 units, and rest will be covered and short-acting during the meals. - Continue consistent carb diet. - Monitor sugar levels CAD s/p stents in the past: - Will continue aspirin 81 mg, rosuvastatin 40 mg, metoprolol 12.5 mg, ranexa, nitroglycerin when necessary Peripheral vascular disease: - Will continue aspirin 81 mg, statin 40 mg Hypomagnesemia, chronic: - Will continue magnesium supplements Diastolic heart failure, not in exacerbation: - Echo reports left ventricular EF 70-75%. Rest as above. - Patient follows with Dr. Novak [facility] [employer] - Continue metoprolol 12.5 mg, lisinopril 2.5 mg Depression: We will continue fluoxetine 30 mg GERD: - Will continue Protonix 20 mg DVT prophylaxis: - Continue Eliquis 5 mg Disposition: Patient was doing okay overnight, but he did have an hypotensive episode in the morning with PT was trying to work with him. We will monitor him today, if patient is stable overnight and cleared by PT tomorrow will plan for discharge. Attending Note: Patient seen and examined independently. Agree with resident's note. VS,Fishbone, I+O VS, Fishbone, I+O Laboratory Tests 03/25/20 06:15 Vital Signs Date Time Temp Pulse Resp B/P (MAP) Pulse Ox O2 Delivery O2 Flow Rate FiO2 03/25/20 06:00 98.9 59 16 98/67 (77) 99 Nasal Cannula 5.0 03/23/20 06:00 28 I&O- Last 24 Hours up to 6 AM 03/25/20 05:59 Intake Total 1110 ml Output Total 1700 ml Balance -590 ml Brandee Coto MD Mar 25, 2020 11:31 NAFISA BALL MD Mar 28, 2020 06:52
[2020-03-25 11:51] LABS: CORTISOL AM 4.7 UG/DL (4.3-22.4)
[2020-03-25 13:00] VITALS: BP_SYST 112; BP_SYST 94; BP_DIAS 52; BP_DIAS 72
[2020-03-25 14:30] VITALS: BP 112/72
[2020-03-25] MEDS: FLUTICASONE PROP 0.05% NASAL SPRAY 16 GM (FLONASE) NARES PRN (17:44)
[2020-03-25] MEDS: METOPROLOL TART 25 MG TABLET PO SCH (21:00)
[2020-03-25] MEDS: LISINOPRIL *2.5 MG* TAB PO SCH (21:00)
[2020-03-25] MEDS: ROSUVASTATIN 10 MG TAB (CRESTOR) PO SCH (21:00)
[2020-03-25] MEDS: SODIUM CHLORIDE NASAL 0.65% SPRAY BTL (OCEAN) PRN (21:01)
[2020-03-25 21:50] VITALS: BP 132/69
[2020-03-25 23:30] VITALS: BP_SYST 101; BP_SYST 118; BP_DIAS 58; BP_DIAS 72
[2020-03-26] VITALS (17 sets, daily range): BP systolic 68–130; BP diastolic 44–74; O2SAT 81–90
[2020-03-26] MEDS ORDERED: ONDANSETRON 4MG/2ML VIAL IV PRN (00:30)
[2020-03-26] MEDS: ADVAIR HFA 230/21MCG INHALER INH SCH ×2 (07:12→20:41)
[2020-03-26] MEDS: TIOTROPIUM INHALER/CAPSULE (SPIRIVA) INH SCH (07:12)
[2020-03-26] MEDS: HumaLOG INSULIN (NovoLOG) PER UNIT SC SCH ×4 (07:30→21:00)
[2020-03-26 08:15] LABS: ABG HCO3 23.9 MEQ/L (22.0-26.0); ABG O2 SATURATION 80.8 % (95.0-99.0); ABG PARTIAL PRESSURE CO2 35.9 mmHg (35.0-45.0); ABG PARTIAL PRESSURE O2 44.9 mmHg (75.0-100.0); ABG STANDARD HCO3 24.2 MEQ/L (22.0-26.0); ABG pH (ARTERIAL) 7.442 UNITS (7.350-7.450)
--- NOTE | 2020-03-26 08:34 | REP ---
INDICATION: sob. COMPARISON: Chest 02/20/2020, CT 02/18/2020 TECHNIQUE: AP portable seated FINDINGS: Lordotic projection limits evaluation posterior lower lung zones there is cardiomegaly with left atrial ventricular Quan. Vascular redistribution with some interstitial edema superimposed on underlying fibrosis. Reaccumulation of a right pleural effusion since thoracentesis on 02/20/2020. Tortuous calcified aorta without change. Airway intact. Hilar fullness bilaterally unchanged. Bones with some degenerative changes spine and shoulders with demineralization. IMPRESSION: : 1. Cardiomegaly with vascular redistribution and interstitial edema superimposed on fibrosis. 2. Reaccumulation of a moderate-sized right pleural effusion since thoracentesis on 02/20/2020. 3. Some hilar fullness in a symmetric fashion and a calcified tortuous aorta stable. <Electronically signed by Jonathan Pitt > 03/26/20 [id number]
[2020-03-26 08:47] LABS: HEMATOCRIT 29.1 % (42.0-52.0); HEMOGLOBIN 8.5 g/dl (13.5-17.5); MEAN CORPUSCULAR HEMOGLOBIN 24.4 pg (27.0-33.0); MEAN CORPUSCULAR HGB CONC 29.2 g/dl (32.0-36.5); MEAN CORPUSCULAR VOLUME 83.4 fl (80.0-96.0); PLATELET COUNT, AUTOMATED 228 10^3/uL (150-450); RED BLOOD COUNT 3.49 10^6/uL (4.30-6.10); WHITE BLOOD COUNT 10.8 10^3/uL (4.0-10.0)
[2020-03-26 08:59] LABS: CK-MB VALUE MASS 1.1 NG/ML (<3.6); CPK CREATINE PHOSPHOKINASE 26 U/L (39-308); MB/CK RELATIVE INDEX 4.23 (< OR =4); TROPONIN I < 0.02 NG/ML (< 0.10)
[2020-03-26] MEDS: TORSEMIDE 20 MG TAB PO SCH (09:00)
[2020-03-26 09:15] LABS: CALCIUM LEVEL 8.3 MG/DL (8.8-10.2); CREATININE FOR GFR 1.38 MG/DL (0.70-1.30); GLOMERULAR FILTRATION RATE 53.3 (>42); MAGNESIUM LEVEL 2.4 MG/DL (1.8-2.4)
[2020-03-26] MEDS ORDERED: cefTRIAXone SOD 1 GM in D5W MINI-BAG PLUS 50 ML IV SCH (09:45)
[2020-03-26] MEDS ORDERED: FUROSEMIDE 40MG/4ML VIAL (J1940) IV ONE ×2 (09:45→19:00)
[2020-03-26] MEDS: DOXYCYCLINE HYCLATE 100 MG in D5W MINI-BAG PLUS 100 ML IV SCH ×2 (10:50→21:01)
[2020-03-26] MEDS: LEVEMIR (INSULIN DETEMIR) 1 UNITS/0.01ML SC SCH (10:51)
[2020-03-26] MEDS: RANOLAZINE 500 MG ER TAB PO SCH ×2 (10:52→20:56)
[2020-03-26] MEDS: OMEPRAZOLE 20 MG CAP PO SCH ×2 (10:52→20:57)
[2020-03-26] MEDS: ISOSORBIDE MON. (IMDUR) 30 MG XR TAB PO SCH (10:52)
[2020-03-26] MEDS: ASPIRIN 81 MG ENTERIC TAB PO SCH (10:53)
[2020-03-26] MEDS: MAGNESIUM OXIDE 400 MG TAB (MAG-OX) PO SCH (10:53)
[2020-03-26] MEDS: FLUoxetine 10 MG CAP PO SCH (13:30)
--- NOTE | 2020-03-26 15:31 | CR.PDOC ---
General Date of Consultation: Mar 26, 2020 Primary Care Physician: LYNNE CUMMINGS MD [facility] Attending Physician: LUL CADE MD Consultation REASON FOR CONSULTATION/CHIEF COMPLAINT: Frequent desaturations and hypotensive spells. HISTORY OF PRESENT ILLNESS: Patient is a 75-year-old male with a past medical history of COPD, diastolic CHF, obstructive sleep apnea uses CPAP at home 19 at a pressure of 10 cm of water with an oxygen bleed of 3 L, hypertension, diabetes mellitus, coronary artery disease status post stents, peripheral vascular disease presented with [facility] after having increased shaking and weakness and altered mental status. The family around denied the patient having any tongue biting trolling facial drooping loss of bowel or bladder control. The patient's workup is negative for stroke CT head was negative there are no neurological deficits. ALLERGIES: Please see below. HOME MEDICATIONS: Please see below. PAST MEDICAL HISTORY: 1. COPD(follows Dr. Crespo outpatient uses home oxygen at 3 L and CPAP nightly at a pressure of 10 cm of H2O) 2. Diastolic CHF with left ventricular ejection fraction 65%. 3.JAELYN on CPAP 4.hypertension 5.insulin-dependent diabetes mellitus type 2 6.coronary artery disease status post stents in 2017 7.peripheral vascular disease status post left lower extremity stent 8.morbid obesity PAST SURGICAL HISTORY: 1. Cholecystectomy 1989 2. CARDIAC stenting 2016 3.left lower limb standing 2018 FAMILY HISTORY: Father had a history of heart disease at the age of 53 Mother had lung cancer at the age of 60 SOCIAL HISTORY: Tobacco use: Former smoker quit smoking 30 years ago smoked for about 16 years about 2.5 packs per day ETOH: denies Illicit drug use: Denies IV drug use: Denies REVIEW OF SYSTEMS: CONSTITUTIONAL: Denies any fever/weight loss/chills/night sweats. HEENT: Denies sore throat/runny nose/conjunctival injection/postnasal drip. CARDIOVASCULAR: Denies any palpitations/chest pain. RESPIRATORY: Reports increased shortness of breath and cough more than baseline. GENITOURINARY: Denies any polyuria/dysuria. MUSCULOSKELETAL: Denies any joint pain/joint swelling. GASTROINTESTINAL: Denies any nausea vomiting diarrhea constipation or any abdominal pain. SKIN: Reports multiple injuries on the bony prominences and bruises due to minor injury. NEUROLOGICAL: Denies any headaches/loss of consciousness/dizziness/visual changes. PSYCHIATRIC: Denies any depression/suicidal ideatio. PHYSICAL EXAMINATION: VITAL SIGNS: Please see below. GENERAL APPEARANCE: The patient looks comfortable in no acute distress alert oriented to time place and person. HEENT: Atraumatic normocephalic, PERRLA/EOMI. RESPIRATORY: Clear to auscultation bilaterally, bilateral bibasilar crackles heard with no wheezing or rhonchi. CARDIOVASCULAR: Regular rate and rhythm normal heart sounds, no murmurs/rubs/gallops.. ABDOMEN: Obese abdomen, nontender nondistended bowel sounds are positive, no rigidity no guarding, no organomegaly palpated. EXTREMITIES: Multiple bruises seen on all 4 limbs at point of contact with furniture or door as per the patient. There is a wound about 2 cm. In length actively bleeding covered by dressing on the left wrist. Second tour left foot seems trending hemoptysis when the wound OOZING PUS. Likely infected NEUROLOGICAL: Cranial nerves II-12 are intact good motor strength 5 out of 5, paresthesias and numbness in bilateral feet due to diabetic neuropathy.. PSYCHIATRIC: Normal mood and affect.. LABORATORY DATA: Please see below. ASSESSMENT/PLAN: 1. Acute hypoxic respiratory failure: Patient is under no acute distress but desaturated to 87%, patient is shifted to high flow nasal oxygen at 10 L. Patient advised to use CPAP at a pressure of 10 cm H2O nightly. Continue with home medications and Spiriva. On imaging the patient is fluid overloaded, right lower lobe shows a fluid pocket which needs drainageinterventional radiology needs to be consulted and has anticoagulants need to be put on hold for the procedure. -Will continue to diurese him. Oxygen orders report and to maintain a saturation of 88% to 92%. . 2.transient ischemic attack: CT head was negative No neurological deficits seen The patient is on aspirin and statin and anticoagulation 3.obstructive sleep apnea: Patient uses CPAP at home nightly daily at a pressure of 10 cm H2O 4. Diabetes mellitus type 2: Patient is on an insulin sliding scale His blood glucose remains under control. Continue consistent carb diet 5.hypotension: Patient came in with hypertension on the initial presentation but his blood pressure keeps falling down when he gets out of bed or when he changes his position from a lying down to a sitting position. He had a hypotensive episode 94/48 mmHg without symptoms when PT was working with him this morning Patient is not hypotensive anymore. We will carefully start his diuretic again to avoid fluid overload and fluid in the lungs. 6.peripheral vascular disease: Stable Patient is on aspirin, statin, anticoagulation 7.coronary artery disease status post stent placement Continue with aspirin, statin, beta blockers, nitroglycerin as needed 8.GERD/GI prophylaxis: Patient is on a PPI 9.wound on the left foot: Patient is afebrile with a normal leukocyte count. However, his second toe from the left foot looks inflamed and infected with the wound oozing pus. We started the patient on doxycycline IV. Vital Signs/I&O Vital Signs Date Time Temp Pulse Resp B/P (MAP) Pulse Ox O2 Delivery O2 Flow Rate FiO2 03/26/20 14:00 55 26 92/53 (66) 94 High Flow Cannula 15.0 03/26/20 12:24 98.8 03/26/20 09:08 100 I&O- Last 24 Hours up to 6 AM 03/26/20 06:00 Intake Total 1540 ml Output Total 750 ml Balance 790 ml Laboratory Data Labs 24H Laboratory Tests 2 03/25/20 17:12: Bedside Glucose (Misc Panel) 148H 03/25/20 20:24: Bedside Glucose (Misc Panel) 200H 03/26/20 06:03: Bedside Glucose (Misc Panel) 173H 03/26/20 07:59: Blood Gas Bicarbonate Standard 24.2, Arterial Blood pH 7.442, Arterial Blood Partial Pressure CO2 35.9, Arterial Blood Partial Pressure O2 44.9*L, Arterial Blood Total CO2 25.0, Arterial Blood HCO3 23.9, Arterial Blood Base Excess 0.0, Arterial Blood Oxygen Saturation 80.8L 03/26/20 08:19: Nucleated Red Blood Cells % (auto) 0.0, Anion Gap 6L, Glomerular Filtration Rate 53.3, Calcium Level 8.3L, Magnesium Level 2.4, Total Creatine Kinase 26L, Creatine Kinase MB 1.1, Creatine Kinase MB Relative Index 4.23H, Troponin I < 0.02, UP-Flt-G-Type Natriuretic Peptide 5893H 03/26/20 09:11: Lactic Acid Level 1.5 03/26/20 10:39: Methicillin-Resist S.aureus DNA PCR NOT DETECTED 03/26/20 12:22: Bedside Glucose (Misc Panel) 172H CBC/BMP Laboratory Tests 03/26/20 08:19 Allergies Coded Allergies: Cephalosporins (Verified Allergy, Intermediate, RASH, 02/18/20) RASH PER Penicillins (Verified Allergy, Intermediate, RASH, 02/18/20) clavulanic acid (Verified Allergy, Intermediate, RASH, 02/18/20) levofloxacin (Verified Allergy, Intermediate, RASH, 02/18/20) Home Medications Scheduled Apixaban (Eliquis) 5 Mg Tablet, 5 MG PO BID, (Reported) Aspirin (Aspirin EC) 81 Mg Tablet.dr, 81 MG PO DAILY, (Reported) Fluoxetine Hcl (Fluoxetine HCl) 10 Mg Capsule, 30 MG PO DAILY, (Reported) Insulin Aspart (Novolog Flexpen) 100 Unit/Ml Inj, 1 DOSE SC ACHS, (Reported) PER SLIDING SCALE Insulin Glargine,Hum.rec.anlog (Toujeo Solostar) 300 Unit/Ml Inj, 30 UNIT SC DAILY, (Reported) Isosorbide Mononitrate (Isosorbide Mononitrate ER) 30 Mg Tab.er.24h, 30 MG PO DAILY, (Reported) Lisinopril (Lisinopril) 2.5 Mg Tab, 2.5 MG PO QHS, (Reported) Magnesium Oxide (Magnesium Oxide) 400 Mg Tab, 400 MG PO DAILY, (Reported) Metoprolol Tartrate (Metoprolol Tartrate) 25 Mg Tab, 12.5 MG PO QHS, (Reported) Omeprazole (Omeprazole) 20 Mg Tab, 20 MG PO BID, (Reported) Ranolazine (Ranexa) 1,000 Mg Tab.er.12h, 1,000 MG PO BID, (Reported) Rosuvastatin Calcium (Rosuvastatin Calcium) 40 Mg Tab, 40 MG PO QHS, (Reported) Salmeterol/Fluticasone (Advair 500-50 Diskus) 28 Puff/Inhaler Aerp, 1 PUFF INH BID, (Reported) Torsemide (Torsemide) 20 Mg Tablet, 40 MG PO BID, (Reported) 0900/1700 Umeclidinium [place] (Incruse Ellipta) 62.5 Mcg/Inh Inh, 1 PUFF INH DAILY, (Re ported) Scheduled PRN Acetaminophen (Mapap) 500 Mg Tablet, 1,000 MG PO Q6H PRN for PAIN, (Reported) Albuterol Sulf (Albuterol Sulfate) 2.5 Mg/3 Ml Vial.neb, 2.5 MG INH Q4HP PRN for SHORTNESS OF BREATH, (Reported) Albuterol Sulfate (Ventolin Hfa) 108 Mcg/Act Aer, 2 PUFF INH Q4H PRN for SHORTNESS OF BREATH, (Reported) Fluticasone Propionate (Fluticasone Propionate) 16 Gm Waves.susp, 1 SPRAY NARES DAILY PRN for CONGESTION, (Reported) Nitroglycerin (Nitrostat) 0.4 Mg Subl, 0.4 MG SL NITRO PRN for CHEST PAIN, (Reported) GME ATTESTATION GME ATTESTATION My faculty preceptor for this patient encounter was physically present during the encounter and was fully available. All aspects of the patient interview, examination, medical decision making process, and medical care plan development were reviewed and approved by the faculty preceptor. The faculty preceptor is aware and concurs with the plan as stated in the body of this note and will attest to such by his/her cosignature. Julisa Mcnulty MD Mar 26, 2020 14:51
--- NOTE | 2020-03-26 15:36 | ECGEPIP ---
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
--- NOTE | 2020-03-26 18:57 | IPNPDOC ---
Date Seen The patient was seen on 03/26/20. Progress Note SUBJECTIVE: Patient was seen and examined this morning. There were not events reported overnight however this AM patient was noted to become hypoxic with spO2 of 80-85% and hypotension. He was evaluated at bedside and was rather asymptomatic. He was placed on high flow nasal cannula however did eventually require non-rebreather. An ABG and chest x-ray were obtained which demonstrated hypoxemia and vascular congestion with a loculated right sided pleural effusion. The patient was transferred to ICU for closer monitoring given his hypotension OBJECTIVE PHYSICAL EXAMINATION: VITAL SIGNS: Please see below. GENERAL: Awake, alert, and oriented. Labored breathing otherwise in no acute distress. Sitting up in bed HEENT: Atraumatic, normocephalic. Eyes are nonicteric. Trachea is midline. M ucous membranes are pink and moist CARDIOVASCULAR: Normal S1, S2. Regular rate and rhythm. No clicks rubs or murmurs. RESPIRATORY: Bilateral crackles throughout. Decreased breath sounds in the right lower lung rosales. Patient is tachypneic with mild scattered wheezing. ABDOMINAL: Soft, nondistended. Nontender. Normoactive bowel sounds throughout EXTREMITIES: No edema. Chronic left second toe ulceration with slight purulent drainage. Full and equal pulses in bilateral upper and lower extremities NEUROLOGICAL: No focal neurological deficits PSYCHOLOGICAL: Mood and affect appear appropriate LABORATORY DATA, IMAGING STUDIES, MICROBIOLOGY: Please see below. Echocardiogram: DATE OF PROCEDURE: 03/23/2020 Age: 75 Gender: M Height: 173 cm Weight: 110 kg REFERRING PHYSICIAN: Dr. Diane Jara INDICATION: Transient ischemic attack (TIA) MEASUREMENTS: IVS 1.9 LV 3.5 LVPW 1.7 LA 3.1 Aorta 3.6 IVC 1.9 Mitral E wave velocity is 88; mitral A wave 98 FINDINGS: This study is of fair technical quality with challenging visualization. The patient is in sinus rhythm. Left ventricle is normal size. Moderately severe left ventricular hypertrophy ispresent. Overall, preserved systolic function, estimated ejection fraction (EF) 70-75%. I do not appreciate any distant segmental wall motion abnormalities but the visualization was limited. Right ventricle was poorly seen and appears at least mildly dilated. Left atrium is normal. The right atrium was poorly visualized. Aortic valve is heavily sclerotic but it has three cusps and grosslypreserved mobility. Mitral, tricuspid and pulmonic valves appear normal. Trivialpericardial effusion is noted. Inferior vena cava is at the upper limits of normal size and appropriately collapses with inspiration indicative of likely normal or widely elevated central venous pressure. Aortic root is normal. Aorticarch was poorly seen. Abdominal aorta appears normal. Doppler interrogation of the aortic valve reveals trivial stenosis and no insufficiency. There is competent mitral valve. There is mild tricuspid insufficiency. Calculated pulmonary artery pressure is at least in the high 50s or low 60s corresponding to moderately severe pulmonary hypertension. Evaluation of diastolic function is incomplete but based on mitral inflow p attern, there is likely grade 1 diastolic dysfunction. CONCLUSIONS: 1. Study is of fair technical quality, underlying sinus rhythm. 2. Normal left ventricle (LV) size with moderately severe left ventricular hypertrophy (LVH), hyperdynamic left ventricular systolic function (estimated left ventricular ejection fraction 70-75%) and grade 1 diastolic dysfunction. 3. Prominent aortic sclerosis with trivial stenosis and no insufficiency. 4. Competent mitral valve. 5. Mild tricuspid insufficiency, moderately severe pulmonary hypertension. 6. Probably normal or mildly elevated central venous pressure. DD: Donnie Dubois MD 03/23/20 5589 DT: DANILO 03/24/20 0738 DS: DS2: DVT prophylaxis ordered?: Mechanical Teds and Sequentials ASSESSMENT AND PLAN: Patient is a 75 year old male with an extensive past medical history including CAD s/p cardiac stenting, COPD, severe pulmonary hypertension, and JAELYN who presented to [facility] with possible TIA. 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 Patient was planned to follow-up outpatient with vascular surgery. During his hospitalization the patient was noted to be hypotensive and experiencing preysncope. His BP medications were held. Patient then developed hypoxia and hypotension and was felt to be in decompensated congestive heart failure PROBLEMS: 1. Hypoxia/hypoxemia likely 2/2 Acute Decompensated Congestive Heart Failure -Patient developed hypoxia this morning. Chest x-ray demonstrated vascular congestion and a right sided loculated effusion. Patient has been in sinus rhythm with a controlled heart rate. He was not receiving his Torsemide due to hypotension which is the likely cause of his acute decompensation -Patient had received an echocardiogram previously during this admission which demonstrated normal LVEF and grade 1 diastolic dysfucntion however he did have severe pulmonary hypertension which likely contributed to his acute d ecompensation -Case was discussed with Cardiology and Pulmonary medicine. Consultation is appreciated -Patient was given 40mg IV lasix. He has diuresed approximately 800-900 throughout the day. Clinically the patient has improved. Will administer an additional 40mg IV lasix tonight. Patient should be reevaluated in the morning for additional dosing due to his soft blood pressure. However anticipate lasix 40mg IV BID -Oxygen Titration order for 88-92% 2. Loculated Right sided Pleural Effusion -Patient had an effusion during his previous hospitalization. This was drained by U/S guided needle aspiration. Cytology and Cultures was sent previously however this was felt to be transudative and the patient was not continued on any antibiotics. Currently the effusion appears loculated on chest x-ray. -Patient will be scheduled for Ultrasound guided needle drainage. His Eliquis is on hold and therefore this will occur on Sunday03/29/20 -Patient will have Eliquis on hold -Will repeat cytology and cultures gram stain as the effusion appears more loculated then previously 3. Hypotension -Patient has been noted to be transiently hypotensive. This appears to be orthostatic in nature. His orthostatic hypotension is likely exacerbated in part due to being on chronic diuretic. However this is complicated as the patient has severe pulmonary hypertension and requires chronic diuretics. His orthostatic hypotension may be autonomic in nature. He may benefit from Midodrine if this would allow for peripheral vasoconstriction without much effect on pulmonary vasculature. -At this time the patient requires diuresis. He is orthostatic and will become hypotensive when sitting up. -Cardiology is consulted. 4. Severe Pulmonary Hypertension -As stated previously patient has severe pulmonary hypertension which is likely the cause of many of his current issues. -Will continue with diuresis 5. JAELYN -Patient currently on CPAP with O2 bleed through 6. TIA -Patient originally presented with what was believed to be a TIA. He has 40% stenosis of the right carotid artery and complete occlusion of left. During his hospitalization he was noted to temporarily "zone out". These episodes appeared to happen when he sits or stands up and are likely related to his blood pressure. He likely has poor perfusion to his brain when he sits/stands causing him to have symptoms -Patient will need to follow-up with Vascular surgery at discharge for recommendations on potential carotid endarterectomy -Patient is on Plavix and statin 7. Diabetes Mellitus Type 2 -Continue with Levemir and Sliding scale coverage 8. CAD s/p Stent placement and PVD -Continue home medications 9. Paroxysmal Atrial Fibrillation -Patient is currently sinus rhythm. On Lopressor 12.5. Will continue -Holding Eliquis for Thoracentesis on Sunday03/29/20 10. Depression -Continue current medications 11. GERD -Continue current medications 12. DVT Prophylaxis -Teds and sequentials. Patient off anticoagulation for procedure DISPOSITION: Pending clinical improvement likely downgrade to PCU status in 24- 48 hours Attending Note: Patient seen and examined independently. Agree with resident's note. VS, I&O, 24H, Fishbone Vital Signs/I&O Vital Signs Date Time Temp Pulse Resp B/P (MAP) Pulse Ox O2 Delivery O2 Flow Rate FiO2 03/26/20 15:09 62 28 126/58 (80) 86 High Flow Cannula 15.0 03/26/20 12:24 98.8 03/26/20 09:08 100 I&O- Last 24 Hours up to 6 AM 03/26/20 05:59 Intake Total 1360 ml Output Total 750 ml Balance 610 ml Laboratory Data 24H LABS Laboratory Tests 2 03/25/20 20:24: Bedside Glucose (Misc Panel) 200H 03/26/20 06:03: Bedside Glucose (Misc Panel) 173H 03/26/20 07:59: Blood Gas Bicarbonate Standard 24.2, Arterial Blood pH 7.442, Arterial Blood Partial Pressure CO2 35.9, Arterial Blood Partial Pressure O2 44.9*L, Arterial Blood Total CO2 25.0, Arterial Blood HCO3 23.9, Arterial Blood Base Excess 0.0, Arterial Blood Oxygen Saturation 80.8L 03/26/20 08:19: Nucleated Red Blood Cells % (auto) 0.0, Anion Gap 6L, Glomerular Filtration Rate 53.3, Calcium Level 8.3L, Magnesium Level 2.4, Total Creatine Kinase 26L, Creatine Kinase MB 1.1, Creatine Kinase MB Relative Index 4.23H, Troponin I < 0.02, SR-Wsz-[id number]-Type Natriuretic Peptide 5893H 03/26/20 09:11: Lactic Acid Level 1.5 03/26/20 10:39: Methicillin-Resist S.aureus DNA PCR NOT DETECTED 03/26/20 12:22: Bedside Glucose (Misc Panel) 172H 03/26/20 17:33: Bedside Glucose (Misc Panel) 147H CBC/BMP Laboratory Tests 03/26/20 08:19 SHARYN BEASLEY DO Mar 26, 2020 18:57 NAFISA BALL MD Mar 28, 2020 07:06
[2020-03-26] MEDS: SODIUM CHLORIDE NASAL 0.65% SPRAY BTL (OCEAN) PRN (20:56)
[2020-03-26] MEDS: METOPROLOL TART 25 MG TABLET PO SCH (20:57)
[2020-03-26] MEDS: ROSUVASTATIN 10 MG TAB (CRESTOR) PO SCH (20:57)
[2020-03-26] MEDS: LISINOPRIL *2.5 MG* TAB PO SCH (21:01)
[2020-03-27] VITALS (8 sets, daily range): BP systolic 89–113; BP diastolic 50–68
[2020-03-27 04:41] LABS: BASO # 0.1 10^3/uL (0.0-0.2); BASO % 0.6 % (0.0-1.0); EOS # 0.1 10^3/uL (0.0-0.5); EOS % 1.1 % (0.0-3.0); HEMATOCRIT 25.9 % (42.0-52.0); HEMOGLOBIN 7.6 g/dl (13.5-17.5); LYMPH # 1.1 10^3/uL (1.5-5.0); LYMPH % 11.3 % (24.0-44.0); MEAN CORPUSCULAR HEMOGLOBIN 24.4 pg (27.0-33.0); MEAN CORPUSCULAR HGB CONC 29.3 g/dl (32.0-36.5); MONO % 10.3 % (0.0-5.0); NEUTROPHILS # 7.6 10^3/uL (1.5-8.5); NEUTROPHILS % 76.1 % (36.0-66.0); PLATELET COUNT, AUTOMATED 192 10^3/uL (150-450); RED BLOOD COUNT 3.12 10^6/uL (4.30-6.10)
[2020-03-27 05:00] LABS: CREATININE FOR GFR 1.38 MG/DL (0.70-1.30); GLOMERULAR FILTRATION RATE 53.3 (>42); POTASSIUM SERUM 3.6 MEQ/L (3.5-5.1)
[2020-03-27] MEDS: HumaLOG INSULIN (NovoLOG) PER UNIT SC SCH ×4 (07:30→21:00)
[2020-03-27] MEDS: TIOTROPIUM INHALER/CAPSULE (SPIRIVA) INH SCH (07:55)
[2020-03-27] MEDS: ADVAIR HFA 230/21MCG INHALER INH SCH ×2 (07:55→19:46)
[2020-03-27] MEDS: TORSEMIDE 20 MG TAB PO SCH ×3 (09:00→17:35)
[2020-03-27] MEDS: FLUoxetine 10 MG CAP PO SCH (09:00)
[2020-03-27] MEDS ORDERED: FUROSEMIDE 40MG/4ML VIAL (J1940) IV ONE ×2 (09:15→14:00)
[2020-03-27] MEDS: DOXYCYCLINE HYCLATE 100 MG in D5W MINI-BAG PLUS 100 ML IV SCH ×2 (10:24→21:04)
[2020-03-27] MEDS: LEVEMIR (INSULIN DETEMIR) 1 UNITS/0.01ML SC SCH (10:24)
[2020-03-27] MEDS: RANOLAZINE 500 MG ER TAB PO SCH ×2 (10:25→20:56)
[2020-03-27] MEDS: ISOSORBIDE MON. (IMDUR) 30 MG XR TAB PO SCH (10:25)
[2020-03-27] MEDS: MAGNESIUM OXIDE 400 MG TAB (MAG-OX) PO SCH (10:25)
[2020-03-27] MEDS: ENOXAPARIN 100MG/1ML SYRINGE (J1650 PER 10MG) SC SCH (10:26)
[2020-03-27] MEDS: ASPIRIN 81 MG ENTERIC TAB PO SCH (10:26)
[2020-03-27] MEDS: OMEPRAZOLE 20 MG CAP PO SCH ×2 (10:26→20:56)
--- NOTE | 2020-03-27 14:12 | IPNPDOC ---
Text Note Date of Service The patient was seen on 03/27/20. NOTE Subjective: Patient seen at bedside and examined. He denies having any acute events overnight. He is on 10 L of oxygen at rest. He denies having any shortness of breath, cough, chest pain or palpitations, headaches, nausea, vomiting, abdominal pain or dysuria. Patient had a low hemoglobin of 7 dropped from 7.7 this morning so will be transfusing 1 unit of blood. Objective: Physical exam: Vitals: Please see below Gen. patient is awake, alert and oriented. Sitting in bed, no acute distress able to speak in full sentences. He is on 10 L of oxygen. Cardiovascular: Normal S1, S2, normal rate and rhythm, no murmurs, gallops or rubs appreciated. Respiratory: Bilateral crackles and lower lobes up to the mid chest, normal breath sounds are heard in the lung apices, decreased breath sounds in the right lower lung and the rest of the lung. No wheezes, rhonchi or rubs appreciated. Abdominal: Nondistended, soft, no tenderness, positive bowel sounds. Extremities: No pedal edema noted, patient has compression socks on. 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 Imaging: CT head without contrast: 03/22/2020, reported as extensive vascular calcification. Mild generalized volume loss. Old lacunar infarcts noted bilaterally in the basal ganglia. Small vessel changes at as previously noted. No acute infarct or hemorrhage seen. No mass lesion is observed. Duplex carotid: 03/22/2020, reported as bilateral plaque, occlusion of the left internal carotid artery. Question of occlusion or very high grade stenosis of the right internal carotid artery. REFERENCES: SRU CRITERIA. The degree of internal carotid artery stenosis is based on criteria defined by the Society of Radiologists in Ultrasound (SRU). Normal is no stenosis. Mild is less than 50% stenosis. Moderate is 50-69% stenosis. Severe is greater than 69% stenosis to near occlusion. Near occlusion is a markedly narrowed lumen. Total occlusion is no detectable patent lumen. CT angios neck: 03/23/2020, reported as Right common carotid artery: No stenosis. No dissection or occlusion. Right internal carotid artery: Atherosclerotic calcifications are present at the right carotid bifurcation and within the proximal right internal carotid artery. This is causing approximately 40% stenosis. There is significant tortuosity of the distal right cervical ICA. There is severe stenosis of the right cavernous ICA. Right external carotid artery: No occlusion or stenosis of the origin. Right vertebral artery: The right vertebral artery is congenitally hypoplastic, terminating in a posteroinferior cerebellar artery. Left common carotid artery: No stenosis. No dissection or occlusion. Left internal carotid artery: The left internal carotid artery is occluded, beginning at its origin. The ICA is occluded to the paraclinoid segment. Collateral flow is noted in the left carotid terminus. There is persistent origin of the left posterior cerebral artery. Left external carotid artery: No occlusion or stenosis of the origin. Left vertebral artery: No stenosis. No dissection or occlusion. Echocardiogram: Reported as, Measurements: IVC 1.9, LB 3.5, LVPW 1.7, LA3.1, INR 3.6, IVC 1.9, mitral E wave velocity is 88, mitral A wave 98. Normal left ventricular size with moderate severe left ventricular hypertrophy, hyperdynamic left ventricular systolic function EF 70-75 and grade 1 diastolic dysfunction. Prominent aortic sclerosis with tricuspid stenosis and no insufficiency. Competent mitral valve. Mild tricuspid insufficiency, moderately severe pulmonary hypertension. Probable normal or mildly elevated central venous pressure. Assessment: 75-year-old male patient with past medical history of COPD, diasto lic CHF, JAELYN on CPAP, hypertension, diabetes mellitus, CAD s/P stent, PVD admitted for the further workup of TIA. On further testing he was found to have left carotid artery complete stenosis and 40% occlusion of the right. Vascular surgeon Dr. Lugo from [facility] contacted about the case and and told he will follow outpatient and do the procedure as needed outpatient. During the hospitalization patient was having hypotensive episodes with change in position and orthostatic so his Lasix and Imdur were held or 2 days. Patient later developed hypoxia yesterday morning with saturation dropping to 80's most likely due to acute on chronic decompensated congestive heart failure and was transferred to ICU for further management. Plan: Hypoxia/ hypoxemia 2/2 acute on chronic decompensated congestive heart failure: - Patient was saturating in the 90s with 10-15 L of oxygen. - He did receive 2 doses of 40 mg Lasix yesterday. - patient has a hemoglobin of 7.6 dropped from 8.5, and is requiring more oxygen Will try to transfuse him at least 1 unit. - At the end of blood transfusion will give him 40 MG of IV Lasix. - Today patient's blood pressure is maintaining about 105 systolic. - Cardiology Dr. Novak and pulmonary medicine are on both will appreciate their input. - Patient has white count of 10, less likely that he has infection or septic - Patient has a chronic small wound on the left foot, will continue doxycycline twice a day. - Will continue his home medications of Proventil, Spiriva, Flonase. Anemia: - Patient had an acute drop in hemoglobin from 8.5 to 7.6, and requiring a blood transfusion of 1 unit Packed cells. - Will give Lasix 40 mg at the end of the transfusion to prevent aggravation of his congestion from heart failure. -Will get his stool occult blood to look for any GI loss. Right-sided loculated pleural effusion: - Patient had an effusion during prior hospitalization, and was drained by ultrasound, cultures and cytology were sent which showed it was transudate. Currently he has an effusion same location and appears to be loculated on chest x-ray. -Patient will be scheduled for ultrasound-guided needle drainage on Sunday, - we will hold his Eliquis for the procedure on 03/29/2020 - Will repeat cytology, cultures, Gram stain of the effusion as it appears loculated. Order in place. Hypotension: - Patient has intermittent transient hypotension, more so orthostatic in nature. - Likely due to chronic diuretic use, severe pulmonary hypertension. - Cardiology consulted. Severe pulmonary hypertension: - Continue to diuresis. JAELYN: - Patient is on CPAP at home. - Continue CPAP at night, and he is requiring more oxygen than his usual. Patient uses 7 L of oxygen at bedtime and 3 L of oxygen during the day at home. Transient ischemic attack: -Patient came to the hospital with symptoms of transient zone out, and was found to have 40% stenosis in the right carotid artery and complete occlusion of the left. He did have similar episode in the hospital couple of days ago as well, when he was attempting to getup from sleeping to standing position. He did not have any loss of consciousness during this episode. He likely has less perfusion to his brain when he stands which is causing his symptoms. - need to follow up with vascular surgeon either at discharge for potential carotid endarterectomy. - Will continue Plavix and statin. Diabetes mellitus type 2 - Continue sliding scale coverage and Levemir - Will monitor sugar levels. Paroxysmal atrial fibrillation: - And is currently in sinus rhythm on metoprolol 12.5 MG Will continue that. Holding Eliquis for ultrasound-guided drainage of the fluid in the lung on 03/29/2020. Depression: - Will continue fluoxetine 30 mg PVD, CAD s/p stents: - Will continue aspirin, statin GERD: - Will continue Protonix 20 mg DVT prophylaxis: -Teds and sequentials, anticoagulation on hold for procedure on Sunday Disposition pending clinical improvement likely downgraded to PCU status and 24- 48 hours Attending Note: Patient seen and examined independently. Agree with resident's note. VS,Fishbone, I+O VS, Fishbone, I+O Laboratory Tests 03/27/20 04:11 Vital Signs Date Time Temp Pulse Resp B/P (MAP) Pulse Ox O2 Delivery O2 Flow Rate FiO2 03/27/20 12:00 15.0 03/27/20 11:49 97.7 66 20 113/55 (74) 91 High Flow Cannula 03/26/20 09:08 100 I&O- Last 24 Hours up to 6 AM 03/27/20 06:00 Intake Total 1050 ml Output Total 1625 ml Balance -575 ml Brandee Coto MD Mar 27, 2020 14:12 NAFISA BALL MD Mar 28, 2020 07:12
[2020-03-27] MEDS: SODIUM CHLORIDE NASAL 0.65% SPRAY BTL (OCEAN) PRN (17:39)
[2020-03-27 18:32] LABS: BASO # 0.1 10^3/uL (0.0-0.2); BASO % 0.7 % (0.0-1.0); EOS # 0.1 10^3/uL (0.0-0.5); HEMATOCRIT 32.9 % (42.0-52.0); HEMOGLOBIN 9.4 g/dl (13.5-17.5); LYMPH % 9.3 % (24.0-44.0); MEAN CORPUSCULAR HEMOGLOBIN 24.1 pg (27.0-33.0); MEAN CORPUSCULAR HGB CONC 28.6 g/dl (32.0-36.5); MEAN CORPUSCULAR VOLUME 84.4 fl (80.0-96.0); MONO # 0.9 10^3/uL (0.0-0.8); MONO % 8.4 % (0.0-5.0); NEUTROPHILS # 8.6 10^3/uL (1.5-8.5); NEUTROPHILS % 80.1 % (36.0-66.0); PLATELET COUNT, AUTOMATED 222 10^3/uL (150-450); WHITE BLOOD COUNT 10.7 10^3/uL (4.0-10.0)
[2020-03-27] MEDS: ROSUVASTATIN 10 MG TAB (CRESTOR) PO SCH (20:55)
[2020-03-27] MEDS: METOPROLOL TART 25 MG TABLET PO SCH (20:56)
[2020-03-27] MEDS: LISINOPRIL *2.5 MG* TAB PO SCH (21:04)
[2020-03-28] VITALS (7 sets, daily range): BP systolic 94–129; BP diastolic 47–70
[2020-03-28] MEDS: FLUTICASONE PROP 0.05% NASAL SPRAY 16 GM (FLONASE) NARES PRN (01:46)
[2020-03-28 04:43] LABS: HEMATOCRIT 28.3 % (42.0-52.0); HEMOGLOBIN 8.5 g/dl (13.5-17.5); MEAN CORPUSCULAR HEMOGLOBIN 25.1 pg (27.0-33.0); MEAN CORPUSCULAR VOLUME 83.5 fl (80.0-96.0); PLATELET COUNT, AUTOMATED 212 10^3/uL (150-450); RED BLOOD COUNT 3.39 10^6/uL (4.30-6.10); WHITE BLOOD COUNT 11.1 10^3/uL (4.0-10.0)
[2020-03-28 05:04] LABS: CREATININE FOR GFR 1.42 MG/DL (0.70-1.30); GLOMERULAR FILTRATION RATE 51.6 (>42); MAGNESIUM LEVEL 1.8 MG/DL (1.8-2.4); POTASSIUM SERUM 3.5 MEQ/L (3.5-5.1)
[2020-03-28] MEDS: HumaLOG INSULIN (NovoLOG) PER UNIT SC SCH ×4 (07:30→21:00)
[2020-03-28] MEDS: TIOTROPIUM INHALER/CAPSULE (SPIRIVA) INH SCH (07:36)
[2020-03-28] MEDS: ADVAIR HFA 230/21MCG INHALER INH SCH ×2 (07:36→19:35)
--- NOTE | 2020-03-28 08:35 | IPNPDOC ---
Text Note Date of Service The patient was seen on 03/28/20. NOTE Subjective: Patient seen and examined at bedside. He is being switched to vapotherm this morning for oxygen supplementation. This morning he feels somewhat short of breath. He has no other new medical complaints. His CODE STATUS was discussed at length yesterday and he is requesting to be DNR/DNI. Objective: Vitals: Please see below General: NAD, lying comfortably in bed HEENT: NC/AT, nasal cannula in place Lungs: CTA B/L, diminished breath sounds Heart: +S1S2, RRR Abd: soft, NT, +BS, obese Ext: no edema Neuro: no gross focal deficits A/P: 75M with PMHx COPD, HFpEF, JAELYN/CPAP, HTN, DM, CAD/PCI, PVD recent LE bypass grafting admitted for possible TIA. Imaging revealed severe carotid artery disease. Hospital stay complicated with symptomatic hypotension and hypoxia. #possible TIA - Carotid US revealed known total occlusion left ICA, with severe stenosis possible occlusion of right ICA - CTA showed left total occlusion, 40% right ICA - discussed at length with Dr. Lugo-vascular surgery at [place] [facility] for o/p f/u #acute/chronic hypoxemic respiratory failure - multifactorial as below - continue to follow as per pulm - assistance appreciated - continue his home medications of Proventil, Spiriva, Flonase. #decompensated HFpEF - continue to follow as per cardiology - assistance appreciated - receiving demadex #Right-sided loculated pleural effusion - effusion during prior hospitalization - US guided drainage - transudative - re-accumulation - appears to be loculated on CXR - scheduled for ultrasound-guided needle drainage on Sunday, - Eliquis on hold for the procedure on 03/29/2020 - Will repeat cytology, cultures, Gram stain #symptomatic anemia - s/p 1 PRBC 03/27/20 - stool occult blood pending #Hypotension: - Patient has intermittent transient hypotension, more so orthostatic in nature. - Likely due to chronic diuretic use, severe pulmonary hypertension, complicated with decompensated heart failure - Cardiology consulted. #Severe pulmonary hypertension: #JAELYN: - Patient is on CPAP at home. - Continue CPAP at night - Patient uses 7 L of oxygen at bedtime and 3 L of oxygen during the day at home. #DM - Continue sliding scale coverage and Levemir #Paroxysmal atrial fibrillation - continue BB - Eliquis on hold as above - follow as per cardiology - assistance appreciated #Depression: - Will continue fluoxetine 30 mg #PVD, CAD s/p stents: - Will continue aspirin, statin #GERD: - Will continue Prilosec #DVT prophylaxis: -Teds and sequentials #CODE status - discussed at length yesterday, patient requesting to be DNR/DNI Dispo: pending clinical improvement, plan for thoracentesis tomorrow, discussed at length with his daughter Denae Brown on the telephone VS,Jose, I+O VS, Jose, I+O Laboratory Tests 03/27/20 18:21 03/28/20 04:12 Vital Signs Date Time Temp Pulse Resp B/P (MAP) Pulse Ox O2 Delivery O2 Flow Rate FiO2 03/28/20 07:45 99.0 59 16 101/51 (68) 91 High Flow Cannula 10.0 03/26/20 09:08 100 I&O- Last 24 Hours up to 6 AM 03/28/20 06:00 Intake Total 2025 ml Output Total 1850 ml Balance 175 ml NAFISA BALL MD Mar 28, 2020 08:35
[2020-03-28] MEDS: ENOXAPARIN 100MG/1ML SYRINGE (J1650 PER 10MG) SC SCH (10:01)
[2020-03-28] MEDS: DOXYCYCLINE HYCLATE 100 MG in D5W MINI-BAG PLUS 100 ML IV SCH ×2 (10:01→22:10)
[2020-03-28] MEDS: LEVEMIR (INSULIN DETEMIR) 1 UNITS/0.01ML SC SCH (10:01)
[2020-03-28] MEDS: MAGNESIUM OXIDE 400 MG TAB (MAG-OX) PO SCH (10:02)
[2020-03-28] MEDS: RANOLAZINE 500 MG ER TAB PO SCH ×2 (10:02→22:10)
[2020-03-28] MEDS: ASPIRIN 81 MG ENTERIC TAB PO SCH (10:02)
[2020-03-28] MEDS: OMEPRAZOLE 20 MG CAP PO SCH ×2 (10:02→22:10)
[2020-03-28] MEDS: TORSEMIDE 20 MG TAB PO SCH ×2 (10:03→17:58)
[2020-03-28] MEDS: ISOSORBIDE MON. (IMDUR) 30 MG XR TAB PO SCH (10:03)
[2020-03-28] MEDS ORDERED: FUROSEMIDE 20MG/2ML VIAL (J1940) IV ONE (11:00)
[2020-03-28] MEDS: FLUoxetine 10 MG CAP PO SCH (14:25)
--- NOTE | 2020-03-28 16:08 | CCN ---
DATE: 03/27/2020 SUBJECTIVE: The patient was seen and examined this morning during bedside rounds. Overnight, the patient was on CPAP, which he tolerated with his home pressure setting. He did require increased O2 bleed from his usual; however, and was at 10 liters bleed, although was weaned down to 6 liters this morning. The patient otherwise denies any complaints. He has not had any fevers overnight. He has not had worsening shortness of breath or dyspnea except with exertion, although he has not been exerting himself while in the ICU. OBJECTIVE: VITAL SIGNS: Temperature 97.9, pulse 52, respirations 20, blood pressure 89/53, O2 saturation 95% on CPAP at 6 liters O2 bleed. INTAKE/OUTPUT: Ins 1.3 liters, out 1.6 liters, net negative 295 mL. GENERAL: Patient is lying in bed, appears comfortable, and is oriented x3 and is not using any accessory muscles for respiration. HEENT: Normocephalic, atraumatic. Pupils are reactive to light bilaterally. There are moist mucous membranes noted. NECK: Supple. Trachea is midline. There is no palpable cervical lymphadenopathy. CARDIOVASCULAR: Regular rate and rhythm. Normal S1, S2. Unable to clearly appreciate any murmurs. RESPIRATORY: Clear to auscultation bilaterally with a few bibasilar crackles. No wheezes, rales, or rhonchi. ABDOMEN: Obese, soft, nontender, and nondistended. Unable to palpate any organomegaly. EXTREMITIES: There is no significant lower extremity edema in the bilateral lower extremities. The patient does have bruising noted particularly in his arms. There is also a lesion on his left toe fourth digit, which has erythema, as well as oozing some pus. LABORATORY DATA: WBC 10.0, hemoglobin 7.6, platelets 192,000. Chemistry: Sodium 138, potassium 3.6, chloride 103, bicarb 29, BUN 23, creatinine 1.38, glucose 148. ASSESSMENT AND PLAN: Mr. Alberto is a 75-year-old male with a past medical history of chronic obstructive pulmonary disease (COPD), congestive heart failure (CHF), obstructive sleep apnea (JAELYN) on CPAP, hypertension, diabetes, coronary artery disease (CAD), and peripheral vascular disease who presents initially with extremity shaking and transient altered mental status. Patient was being evaluated for possible transient ischemic attack (TIA) and he was found on this admission to have severe stenosis and his left carotid artery was almost complete occlusion, as well as a 40% stenosis on his right coronary artery. Patient was also found to have episodes of hypotension, which was orthostatic in nature. He was on diuretics chronically and given his episodes of orthostatic hypotension, they were on hold. Patient was then found to have worsening hypoxia and increasing oxygen requirement likely due to decompensated heart failure in the setting of diastolic, as well as moderately severe pulmonary hypertension. Patient also was found to have reaccumulation of a loculated right-sided pleural effusion, which had previously been sampled on his prior admission and was thought to be transudative from his heart failure. - Patients oxygenation requirements appeared to be improving with diuretics. Given his hypotension, he has been gently diuresed only and is still not significantly net negative. He was also not on his home CPAP during this admission and so was started on it last night, which likely will help as well with his pulmonary edema. - Will continue diuretics as per primary team. He was also noted to be more anemic and will be ordered one unit of packed red blood cells (PRBC), but would give additional 40 mg Lasix with his unit of PRBCs and with a split unit. His oxygenation may improve as well with correction of his anemia. - Will continue weaning down his nasal cannula oxygen supplementation. He was on 5 liters/min during this admission and at home is anywhere from 3-5 liters chronically at baseline. - Patient does have a loculated right-sided pleural effusion, which does need to be sampled. He was on anticoagulation with Eliquis, which is on hold currently. Will start him on Lovenox for bridging given his increased risk with a plan for image-guided thoracentesis by interventional radiology on Sunday. His Lovenox will be held on the day of his procedure. - Will continue with antibiotics. He does have a lesion in his left foot, which appears to have cellulitis, as well as some local drainage. There is also concern that his fluid on the right side may potentially be infectious in etiology given the loculation. - Will continue the rest of patients cardiac medications as per his primary team. If he does have hypotension would consider holding his lisinopril, as well as his Imdur. He does have a history of atrial fibrillation, although he does appear to be rate controlled currently. - Continue with CPAP at night with his home pressure setting and with the O2 bleed as needed to maintain O2 sat above 90%. Deep vein thrombosis (DVT) prophylaxis anticoagulation with Lovenox. Code status: FULL CODE. Total critical care time spent not including procedures approximately 45 minutes. RANDY
[2020-03-28] MEDS: SODIUM CHLORIDE NASAL 0.65% SPRAY BTL (OCEAN) PRN (22:09)
[2020-03-28] MEDS: ROSUVASTATIN 10 MG TAB (CRESTOR) PO SCH (22:10)
[2020-03-28] MEDS: METOPROLOL TART 25 MG TABLET PO SCH (22:11)
[2020-03-28] MEDS: LISINOPRIL *2.5 MG* TAB PO SCH (22:13)
[2020-03-29] VITALS: BP 100/54
[2020-03-29 04:00] VITALS: BP 111/55
[2020-03-29 05:10] LABS: BASO # 0.1 10^3/uL (0.0-0.2); EOS # 0.1 10^3/uL (0.0-0.5); EOS % 1.5 % (0.0-3.0); HEMATOCRIT 27.2 % (42.0-52.0); HEMOGLOBIN 8.2 g/dl (13.5-17.5); LYMPH # 1.1 10^3/uL (1.5-5.0); MEAN CORPUSCULAR HGB CONC 30.1 g/dl (32.0-36.5); MEAN CORPUSCULAR VOLUME 82.9 fl (80.0-96.0); MONO # 1.1 10^3/uL (0.0-0.8); MONO % 11.3 % (0.0-5.0); NEUTROPHILS % 73.7 % (36.0-66.0); PLATELET COUNT, AUTOMATED 200 10^3/uL (150-450); RED BLOOD COUNT 3.28 10^6/uL (4.30-6.10); WHITE BLOOD COUNT 9.4 10^3/uL (4.0-10.0)
[2020-03-29 05:42] LABS: CALCIUM LEVEL 8.3 MG/DL (8.8-10.2); CREATININE FOR GFR 1.41 MG/DL (0.70-1.30); POTASSIUM SERUM 3.2 MEQ/L (3.5-5.1)
[2020-03-29] MEDS ORDERED: KCL 10MEQ/100ML SWI (KRUN) 10 MEQ in IV 1 EA IV SCH (06:00)
[2020-03-29] MEDS: TIOTROPIUM INHALER/CAPSULE (SPIRIVA) INH SCH (07:21)
[2020-03-29] MEDS: ADVAIR HFA 230/21MCG INHALER INH SCH ×2 (07:21→20:00)
[2020-03-29] MEDS: HumaLOG INSULIN (NovoLOG) PER UNIT SC SCH ×4 (07:30→21:00)
[2020-03-29 08:00] VITALS: BP 118/65
[2020-03-29] MEDS ORDERED: POTASSIUM CHLORIDE 10 MEQ SR TABLET PO ONE (08:00)
--- NOTE | 2020-03-29 08:58 | IPNPDOC ---
Text Note Date of Service The patient was seen on 03/29/20. NOTE Subjective: Patient seen and examined at bedside. He is feeling better this morning. No acute overnight events reported. No new medical complaints this morning. Objective: Vitals: Please see below General: NAD, lying comfortably in bed HEENT: NC/AT, nasal cannula in place Lungs: CTA B/L, diminished breath sounds R>L Heart: +S1S2, RRR Abd: soft, NT, +BS, obese Ext: no edema Neuro: no gross focal deficits A/P: 75M with PMHx COPD, HFpEF, JAELYN/CPAP, HTN, DM, CAD/PCI, PVD recent LE bypass grafting admitted for possible TIA. Imaging revealed severe carotid artery disease. Hospital stay complicated with symptomatic hypotension and hypoxia. #possible TIA - Carotid US revealed known total occlusion left ICA, with severe stenosis possible occlusion of right ICA - CTA showed left total occlusion, 40% right ICA - discussed at length with Dr. Lugo-vascular surgery at [place] - recs for o/p f/u #acute/chronic hypoxemic respiratory failure - multifactorial as below - continue to follow as per pulm - assistance appreciated - continue his home medications of Proventil, Spiriva, Flonase. #decompensated HFpEF - continue to follow as per cardiology - assistance appreciated - torsemide #Right-sided loculated pleural effusion - effusion during prior hospitalization - US guided drainage - transudative - re-accumulation - appears to be loculated on CXR - scheduled for ultrasound-guided needle drainage today - Eliquis on hold for the procedure - Will repeat cytology, cultures, Gram stain #symptomatic anemia - s/p 1 PRBC 03/27/20 - stool occult blood negative #Hypotension: - Patient has intermittent transient hypotension, more so orthostatic in nature. - Likely due to chronic diuretic use, severe pulmonary hypertension, complicated with decompensated heart failure - Cardiology consulted. #Severe pulmonary hypertension: #JAELYN: - Patient is on CPAP at home. - Continue CPAP at night #DM - Continue sliding scale coverage and Levemir #Paroxysmal atrial fibrillation - continue BB - Eliquis on hold as above - follow as per cardiology - assistance appreciated #Depression: - Will continue fluoxetine 30 mg #PVD, CAD s/p stents: - Will continue aspirin, statin #GERD: - continue prilosec #DVT prophylaxis: -Teds and sequentials #CODE status - DNR/DNI - MOLST completed Dispo: pending clinical improvement, plan for thoracentesis today, discussed at length with his daughter Denae Brown on the telephone Jose FERNANDEZ, I+O VSJose I+O Laboratory Tests 03/29/20 05:00 Vital Signs Date Time Temp Pulse Resp B/P (MAP) Pulse Ox O2 Delivery O2 Flow Rate FiO2 03/29/20 08:48 98.9 94 HVNI-Vapotherm 25.0 75 03/29/20 08:00 66 22 118/65 (82) I&O- Last 24 Hours up to 6 AM 03/29/20 06:00 Intake Total 1270 ml Output Total 1400 ml Balance -130 ml NAFISA BALL MD Mar 29, 2020 08:58
[2020-03-29] MEDS: MAGNESIUM OXIDE 400 MG TAB (MAG-OX) PO SCH (09:40)
[2020-03-29] MEDS: ASPIRIN 81 MG ENTERIC TAB PO SCH (09:40)
[2020-03-29] MEDS: ISOSORBIDE MON. (IMDUR) 30 MG XR TAB PO SCH (09:41)
[2020-03-29] MEDS: OMEPRAZOLE 20 MG CAP PO SCH ×2 (09:41→21:24)
[2020-03-29] MEDS: TORSEMIDE 20 MG TAB PO SCH ×2 (09:41→18:30)
[2020-03-29] MEDS: DOXYCYCLINE HYCLATE 100 MG in D5W MINI-BAG PLUS 100 ML IV SCH ×2 (10:15→22:21)
--- NOTE | 2020-03-29 10:47 | CCN ---
DATE: 03/28/2020 SUBJECTIVE: Patient was seen and examined this morning during bedside rounds. Patient was placed on Vapotherm yesterday given his oxygen requirements and to help with comfort with the humidified and heated tubing. He does find the Vapotherm more comfortable than the high flow nasal cannula that he was on previously as he was requiring 10-15 liters a minute at times. Patient was given a unit of PRBC transfusion yesterday with Lasix in between as well as after transfusion. He has not been net negative, however, in the past 24 hours. His blood pressures remained stable overnight. He has been afebrile. This morning he denies any worsening shortness of breath or dyspnea and has not had any chest pain. He does have occasional cough although nonproductive. He denies any abdominal pain. No nausea or vomiting, and no worsening lower extremity edema. PHYSICAL EXAMINATION: Vitals: Temperature 99, pulse 59, respirations 16, blood pressure 101/51, O2 sat 94% on Vapotherm at 70% FiO2 with 25 liters a minute flow. Ins 1.9 liters, out 1.7, positive 275 mL. General: Patient is an elderly man. He is sitting in bed awake, alert, and oriented x3. He does not appear to be in any acute respiratory distress. He is not using accessory muscles for respiration. HEENT: Normocephalic/atraumatic. There are moist mucous membranes noted. Neck is supple. Trachea is midline. No palpable cervical adenopathy. Cardiac: Regular rate and rhythm, normal S1 and S2 with a systolic murmur auscultated. Pulmonary: Improved breath sounds bilaterally with less crackles noted. There are decreased breath sounds on the right base with minimal crackles at the bases bilaterally now. There is no wheezing noted. No rhonchi. Abdomen: His abdomen is obese, soft, nontender, nondistended. No palpable organomegaly. Extremities: There is no significant lower extremity edema bilaterally. LABORATORY DATA: WBC 11.1, hemoglobin 8.5, platelets 212. Chemistry: Sodium 136, potassium 2.5, chloride 102, bicarb 29, BUN 24, creatinine 1.42, glucose 122. ASSESSMENT/PLAN: Mr. Alberto is a 75-year-old male with a past medical history of COPD, JAELYN on CPAP, history of chronic hypoxic respiratory failure on nasal cannula oxygen supplementation, hypertension, diabetes, CAD, and peripheral vascular disease who presented initially for possible TIA. Patient was noted on this admission to have evidence of severe carotid arterial disease with almost complete occlusion on the left side and at least 40% occlusion in the right internal carotid artery. Patient was recommended for outpatient follow up by Vascular Surgery at [facility]. Patient's hospital stay was also complicated by worsening hypoxemic respiratory failure as well as episodes of orthostatic hypotension and presyncopal episodes. He was transferred to the ICU for his worsening hypoxemic respiratory failure. Acute on chronic hypoxemic respiratory failure likely in the setting of pulmonary edema as well as with severe pulmonary hypertension. Patients BNP has been elevated, and he does have evidence of reaccumulated loculated effusion on the right as well as pulmonary vascular congestion on his imaging. - Patient has had issues with diuresis due to his episodes of hypotension. He is not net negative in the past 24 hours and so would give additional IV Lasix to his home p.o. torsemide and continue to monitor his blood pressure. He likely will have chronic hypotension in the setting of his cardiac disease and with his pulmonary hypertension. - Will continue patient on Vapotherm and continue to wean down FiO2 as tolerated to maintain an O2 sat of 88-92%. - Will continue his home CPAP at 10 cm nightly with O2 bleed as needed to maintain O2 sat of 88-92%. - Will continue with his home inhalers and with nebulized bronchodilators. - Patient's Eliquis has been on hold, and he is on Lovenox for bridging with plan for IR image guided thoracentesis of his right loculated effusion. - Patient did have echocardiogram on admission which showed a hyperdynamic EF with left ventricular hypertrophy and grade 1 diastolic dysfunction. There was also moderately severe pulmonary hypertension and evidence of at least mildly elevated central venous pressure. His right ventricle was not clearly visualized. Will get a bubble study to evaluate for potential shunt contributing to his persistent hypoxemia. - Continue the rest of home medications as per his primary team. Code status: Patient had discussion with the hospitalist about goals of care, and patient did fill a MOLST stating he is DNR/DNI. Total critical care time spent not including procedures approximately 45 minutes. RANDY
[2020-03-29] MEDS ORDERED: SODIUM BICARBONATE 8.4% INJ 50MEQ 50 ML VIAL As Ordered ONE (11:18)
--- NOTE | 2020-03-29 12:31 | ECHO ---
DATE OF PROCEDURE: 03/28/2020 Age: 75 Gender: Male Height: 173 cm Weight: 112 kg REFERRING PHYSICIAN: Dr. Currie INDICATION: Hypoxemia, question cardiac shunt. FINDINGS: This is only a limited echocardiogram. No standard measurements were obtained. A full 2D echocardiogram was performed on 03/23. Left ventricle today appears relatively underfilled and normally contractile with ejection fraction (EF) estimated around 65% to 70%. The right ventricle is dilated and hypokinetic. There is flattening to the interventricular septum indicative of right ventricle pressure overload. Both atria are enlarged, the right more than left. The aortic valve is sclerotic, but mobility of cusps is preserved. There are also mild degenerative abnormalities of the mitral valve, but no significant restriction of leaflet mobility is noted. The tricuspid valve appears normal. The pulmonic valve also appears normal. Small noncompressive pericardial effusion is noted. The inferior vena cava appears dilated, but collapses with inspiration indicative of likely mildly elevated central venous pressure. The aortic root is normal. The aortic arch and abdominal aorta were not visualized. Limited Doppler evaluation reveals no aortic insufficiency. The mitral valve was not evaluated by color Doppler imaging. There is [id number] tricuspid insufficiency. Calculated pulmonary artery pressure exceeds 100 mmHg corresponding to severe pulmonary hypertension. The pulmonic valve is functionally competent. No evaluation of diastolic function was performed. Injection of agitated saline through peripheral vein reveals no evidence for intracardiac shunt. 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 CONCLUSIONS: 1. Limited echocardiogram. 2. Normal or small left ventricle size with hyperdynamic left ventricular (LV) systolic function. 3. Dilated hypokinetic right ventricle. 4. [id number] tricuspid insufficiency, likely mildly elevated central venous pressure, but severe pulmonary hypertension. 5. Intraventricular septum is flattened in keeping with severe pulmonary hypertension. 6. Compared to echocardiogram from 03/23, the pulmonary artery pressure seems to be more elevated, the right ventricle (RV) enlargement was not as apparent on previous study, likely due to difficulty with imaging. 7. No evidence for intracardiac shunt. MTDD
[2020-03-29 12:39] LABS: SOURCE, BODY FLUID PLEURAL
[2020-03-29 12:40] LABS: APPEARANCE, BODY FLUID HAZY (CLEAR); PLEURAL FL COLOR YELLOW (COLORLESS)
[2020-03-29 12:42] VITALS: BP 118/71
--- NOTE | 2020-03-29 12:52 | REP ---
INDICATION: POST RIGHT THORA, 2 VIEW. COMPARISON: 03/26/2020. TECHNIQUE: Two views of the chest are performed following right thoracentesis. FINDINGS: There is no pneumothorax. There is decreased right pleural fluid. There is mild left pleural fluid. The heart appears upper limits of normal in size. There is calcification of the thoracic aorta. There is mild bibasilar atelectasis/infiltrate. There are degenerative changes of the spine. IMPRESSION: No pneumothorax status post right thoracentesis. Significant decrease in right pleural fluid. <Electronically signed by Ariel Yancey > 03/29/20 [id number]
[2020-03-29 12:55] LABS: LDH, BODY FLUID 67 U/L (NOT ESTABLISHED); SOURCE, BODY FLUID ALBUMIN PLEURAL; SOURCE, BODY FLUID GLUCOSE PLEURAL; SOURCE, BODY FLUID LDH PLEURAL; SOURCE, BODY FLUID TOT PROTEIN PLEURAL; TOTAL PROTEIN, BODY FLUID 1.7 G/DL (NOT ESTABLISHED)
[2020-03-29 13:13] LABS: PH BODY FLUID 7.602 UNITS (NOT ESTABLISHED); SOURCE, BODY FLUID pH PLEURAL
[2020-03-29] MEDS: RANOLAZINE 500 MG ER TAB PO SCH ×2 (13:31→21:13)
[2020-03-29] MEDS: LEVEMIR (INSULIN DETEMIR) 1 UNITS/0.01ML SC SCH (13:31)
[2020-03-29] MEDS: FLUoxetine 10 MG CAP PO SCH (13:31)
[2020-03-29 14:24] LABS: MAGNESIUM LEVEL 1.9 MG/DL (1.8-2.4); POTASSIUM SERUM 4.1 MEQ/L (3.5-5.1)
--- NOTE | 2020-03-29 18:30 | REP ---
INDICATION: Right pleural effusion. Holding Sopheon today 03/26/2020 COMPARISON: None. TECHNIQUE: The procedure was performed by E[facility] Ericks[facility], under the direct supervision of Dr. Yancey The risks and benefits of the procedure were explained to the patient and an informed consent was obtained both verbally and written. Directly prior to the start of the procedure a formal time-out was completed in the procedure room. Pleural fluid in right lung zone was localized using ultrasound guidance. The skin was prepped and draped in a sterile fashion. Eight ML of buffered lidocaine was used as a local anesthetic. Using ultrasound guidance an 8-Burkin[place] multi side-hole catheter was inserted using trocar technique. FINDINGS: Eight hundred mL of dark yellow colored fluid was withdrawn and sent to the laboratory for further analysis. The patient tolerated the procedure well and there were no immediate complications. After the appropriate amount of monitored convalescence, the patient was discharged from the department. IMPRESSION: Ultrasound-guided right lung thoracentesis. <Electronically signed by Ena Erickson > 03/29/20 1332 <Electronically signed by Ariel Yancey > 03/29/20 [id number]
[2020-03-29 19:12] LABS: CALCIUM LEVEL 8.5 MG/DL (8.8-10.2); CREATININE FOR GFR 1.48 MG/DL (0.70-1.30); GLOMERULAR FILTRATION RATE 49.2 (>42); POTASSIUM SERUM 3.4 MEQ/L (3.5-5.1)
[2020-03-29 20:00] VITALS: BP 110/52
[2020-03-29] MEDS: LISINOPRIL *2.5 MG* TAB PO SCH (21:21)
[2020-03-29] MEDS: METOPROLOL TART 25 MG TABLET PO SCH (21:23)
[2020-03-29] MEDS: ROSUVASTATIN 10 MG TAB (CRESTOR) PO SCH (21:24)
[2020-03-30] VITALS (8 sets, daily range): BP systolic 89–117; BP diastolic 48–58
[2020-03-30 04:31] LABS: BASO # 0.1 10^3/uL (0.0-0.2); BASO % 0.8 % (0.0-1.0); EOS # 0.1 10^3/uL (0.0-0.5); EOS % 1.6 % (0.0-3.0); HEMATOCRIT 27.6 % (42.0-52.0); HEMOGLOBIN 8.2 g/dl (13.5-17.5); LYMPH # 1.2 10^3/uL (1.5-5.0); LYMPH % 13.5 % (24.0-44.0); MEAN CORPUSCULAR HEMOGLOBIN 24.8 pg (27.0-33.0); MEAN CORPUSCULAR HGB CONC 29.7 g/dl (32.0-36.5); MEAN CORPUSCULAR VOLUME 83.6 fl (80.0-96.0); MONO # 0.9 10^3/uL (0.0-0.8); MONO % 10.5 % (0.0-5.0); NEUTROPHILS # 6.4 10^3/uL (1.5-8.5); NEUTROPHILS % 72.9 % (36.0-66.0); PLATELET COUNT, AUTOMATED 207 10^3/uL (150-450); WHITE BLOOD COUNT 8.8 10^3/uL (4.0-10.0)
[2020-03-30 05:21] LABS: CALCIUM LEVEL 8.4 MG/DL (8.8-10.2); CREATININE FOR GFR 1.41 MG/DL (0.70-1.30); MAGNESIUM LEVEL 1.8 MG/DL (1.8-2.4); POTASSIUM SERUM 3.3 MEQ/L (3.5-5.1)
[2020-03-30] MEDS ORDERED: POTASSIUM CHLORIDE 10 MEQ SR TABLET PO ONE (07:15)
[2020-03-30] MEDS: TIOTROPIUM INHALER/CAPSULE (SPIRIVA) INH SCH (08:15)
[2020-03-30] MEDS: ADVAIR HFA 230/21MCG INHALER INH SCH ×2 (08:15→19:44)
[2020-03-30] MEDS: OMEPRAZOLE 20 MG CAP PO SCH ×2 (08:52→20:59)
[2020-03-30] MEDS: HumaLOG INSULIN (NovoLOG) PER UNIT SC SCH ×4 (08:52→21:00)
[2020-03-30] MEDS: TORSEMIDE 20 MG TAB PO SCH ×2 (08:53→17:13)
[2020-03-30] MEDS: FLUoxetine 10 MG CAP PO SCH (08:53)
[2020-03-30] MEDS: ASPIRIN 81 MG ENTERIC TAB PO SCH (08:55)
[2020-03-30] MEDS: RANOLAZINE 500 MG ER TAB PO SCH ×2 (08:55→20:56)
[2020-03-30] MEDS: MAGNESIUM OXIDE 400 MG TAB (MAG-OX) PO SCH (08:55)
[2020-03-30] MEDS: ISOSORBIDE MON. (IMDUR) 30 MG XR TAB PO SCH (08:56)
[2020-03-30] MEDS: LEVEMIR (INSULIN DETEMIR) 1 UNITS/0.01ML SC SCH (08:57)
[2020-03-30] MEDS: DOXYCYCLINE HYCLATE 100MG TABLET PO SCH ×2 (10:00→21:00)
[2020-03-30] MEDS: ENOXAPARIN 100MG/1ML SYRINGE (J1650 PER 10MG) SC SCH (10:00)
--- NOTE | 2020-03-30 11:38 | IPN ---
DATE: 03/29/2020 ATTENDING PHYSICIAN/COSIGNER: Mikala Currie MD of pulmonary critical care medicine. SUBJECTIVE: Mr. Alberto was seen and examined this morning. There were no acute events reported overnight. He continues to be on high flow nasal cannula with an FiO2 of 75%. He himself reports no issues. He denies feelings short of breath. He states that he is actually feeling fairly well. He denies any chest pain. There have been no other acute events reported overnight. Patient is currently awaiting his thoracentesis for this afternoon. OBJECTIVE: PHYSICAL EXAMINATION: Vital signs: Temperature 98.9, pulse 66, respiratory rate 20, blood pressure 118/65, pulse oximetry 94% on high flow nasal cannula with FiO2 of 75%. General: Patient is awake, alert, oriented. He does not appear in any acute distress. He does have some labored breathing. He is sitting up in his chair comfortably. HEENT: Atraumatic, normocephalic. His eyes are nonicteric. Trachea is midline. Mucous membranes are pink and moist. Cardiovascular: Normal S1, S2 with regular rate and rhythm, no clicks, rubs, or murmurs. Respiratory: Patient has some bilateral crackles throughout that are decreased from previous examination. He does have decreased breath sounds in the lower lung rosales particularly on the right, otherwise he has good respiratory effort. Abdominal: Soft, nondistended, nontender. Normoactive bowel sounds throughout. Extremities: Patient has trace bilateral lower extremity edema. There is a left toe ulceration, otherwise full and equal pulse bilateral upper and lower extremities. Neurologic: No focal neurological deficits. Psychiatric: Mood and affect appear appropriate. LABORATORY DATA: Hematology: White blood cells 9.4, hemoglobin 8.2, hematocrit 27.2, platelet count 200. Chemistry: Sodium 138, potassium 3.2, chloride 103, carbon dioxide 28, creatinine 1.41, fasting glucose 120. Calcium 8.3. ASSESSMENT AND PLAN: Mr. Alberto is a 75-year-old male with an extensive past medical history including cardiovascular disease status post stenting, chronic obstructive pulmonary disease (COPD), and severe pulmonary hypertension and obstructive sleep apnea (JAELYN) who presented originally to [facility] with possible transient ischemic attack (TIA). 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 He was originally recommended for outpatient followup with vascular surgery, however during his hospitalization he was noted to become transiently hypotensive typically when sitting up and it appeared to be orthostatic in nature. The patient's blood pressure medications were held including his Lasix. He subsequently developed hypoxia along with hypotension which was likely felt to be secondary to decompensated congestive heart failure. He was transferred to the intensive care unit (ICU) where he was given diuresis and placed on high flow nasal cannula. Repeat chest x-ray demonstrated re-accumulation of a right-sided pleural effusion which appears to be loculated. Patient is currently pending thoracentesis this afternoon. 1. Acute on chronic Hypoxia/hypoxemia secondary to acute decompensated congestive heart failure and severe pulmonary hypertension. Patient likely has acute decompensated congestive heart failure which is secondary to his heart failure. He has a combination of both right and left-sided heart failure likely secondary to his severe pulmonary hypertension. He is being followed by cardiology. He is currently receiving diuresis back on oral torsemide with prn IV lasix. He does continue to be net negative. Patients hypoxia is improving with diuresis. He does have a loculated right pleural effusion which is likely secondary to his heart failure. He had a repeat echocardiogram during his hospitalization which demonstrated severe pulmonary hypertension by visual estimation of a pulmonary artery pressure of approximately 100. 2. Severe pulmonary hypertension. As stated previously, patient has severe pulmonary hypertension. Recent echocardiogram demonstrated pulmonary artery pressures of approximately 100. This likely contributes to his acute decompensation. Given the severity of this, the patient is likely not a candidate for procedures such as carotid endarterectomy given the risks of anesthesia. Additionally, patient will likely continue to have episodes of acute decompensation and may be a candidate for hospice going forward. 3. Loculated right-sided pleural effusion. Patient has a history of right- sided pleural effusion. It was drained previously with thoracentesis at a previous hospitalization. Repeat chest x-ray demonstrated what appears to be a loculated right-sided pleural effusion. Patient was on Eliquis, this has been held for 48 hours with lovenox bridge. Plan is to have patient have his thoracentesis performed today around 1 p.m. This may improve his respiratory status, however will likely re-accumulate in the future. Will resume his Eliquis after his thoracentesis. 4. Hypotension. Patient noted to be transiently hypotensive. This is likely secondary to orthostatic hypotension and complicated by severe pulmonary hypertension that requires chronic diuretics. At this time, given the severity of his pulmonary hypertension, he does require continued diuresis. Would recommend slowly sitting up to avoid orthostasis. 5. Transient ischemia attack (TIA). Patient originally presented with what was believed to be a transient ischemic attack. He had a CTA performed which demonstrated 40% stenosis in the right carotid artery and then complete occlusion of the left. It was felt that his episodes of zoning out may be secondary to a transient ischemic attack (TIA) from his carotid stenosis, however it could also be related to poor perfusion from his orthostatic hypotension and underlying pulmonary hypertension. Last week, during his hospitalization, there was no vascular surgery coverage, however he does have a vascular surgeon in [place], Dr. Lugo, who the primary team had contacted. There was recommendation for the patient to followup outpatient once his acute medical conditions resolve. However, given the patients severe pulmonary hypertension, he may not be a candidate for a carotid endarterectomy although according to the patient he did see Dr. Hampton where he had a femoral artery stent placed fairly recently. Recommend potentially vascular surgery consultation to see whether patient would be a candidate for surgery, otherwise to followup outpatient with Dr. Lugo, his vascular surgeon in [place]. 6. Paroxysmal atrial fibrillation. Patient has paroxysmal atrial fibrillation currently in sinus rhythm. He is on Lopressor 12.5 currently continued. He is on Eliquis for anticoagulation which is currently being held as he does have a thoracentesis at 1 p.m. today. 7. Obstructive sleep apnea. Patient is continued on his continuous positive airway pressure (CPAP) with oxygen bleed-through. 8. Deep venous thrombosis (DVT) prophylaxis. Patient is currently on thromboembolic deterrents (TEDs), sequentials, as well as Lovenox, off of his Eliquis for his procedure. DISPOSITION: Patient clinically appears to be improving although his long-term prognosis is poor given his severe pulmonary hypertension including pulmonary artery (PA) pressure of 100. There is likely not much to be offered to patient. Have spoken at bedside with him regarding this. Will likely be a candidate for either hospice however if that is the case he would need to be discharged with high flow nasal cannula. Total critical care time spent not including procedures approx 35mins. I, Mikala Currie, have conducted an independent examination and history of the patient and agree with the plan as detailed by the resident above and discussed during rounds. RANDY
[2020-03-30] MEDS: ROSUVASTATIN 10 MG TAB (CRESTOR) PO SCH (20:57)
[2020-03-30] MEDS: LISINOPRIL *2.5 MG* TAB PO SCH (21:00)
[2020-03-30] MEDS: METOPROLOL TART 25 MG TABLET PO SCH (21:00)
[2020-03-31] VITALS: BP 125/56
[2020-03-31 04:00] VITALS: BP 133/60
[2020-03-31 04:40] LABS: BASO # 0.1 10^3/uL (0.0-0.2); BASO % 0.7 % (0.0-1.0); EOS # 0.1 10^3/uL (0.0-0.5); EOS % 1.1 % (0.0-3.0); HEMATOCRIT 28.4 % (42.0-52.0); HEMOGLOBIN 8.4 g/dl (13.5-17.5); LYMPH # 1.3 10^3/uL (1.5-5.0); LYMPH % 15.3 % (24.0-44.0); MEAN CORPUSCULAR HEMOGLOBIN 24.6 pg (27.0-33.0); MEAN CORPUSCULAR HGB CONC 29.6 g/dl (32.0-36.5); MEAN CORPUSCULAR VOLUME 83.3 fl (80.0-96.0); MONO # 0.9 10^3/uL (0.0-0.8); MONO % 10.9 % (0.0-5.0); NEUTROPHILS # 5.9 10^3/uL (1.5-8.5); NEUTROPHILS % 71.3 % (36.0-66.0); PLATELET COUNT, AUTOMATED 217 10^3/uL (150-450); RED BLOOD COUNT 3.41 10^6/uL (4.30-6.10); WHITE BLOOD COUNT 8.2 10^3/uL (4.0-10.0)
[2020-03-31 05:10] LABS: CREATININE FOR GFR 1.63 MG/DL (0.70-1.30); POTASSIUM SERUM 3.4 MEQ/L (3.5-5.1)
[2020-03-31] MEDS: HumaLOG INSULIN (NovoLOG) PER UNIT SC SCH ×4 (07:30→21:00)
[2020-03-31 08:00] VITALS: BP 118/59
[2020-03-31] MEDS: ADVAIR HFA 230/21MCG INHALER INH SCH ×2 (08:17→19:30)
[2020-03-31] MEDS: TIOTROPIUM INHALER/CAPSULE (SPIRIVA) INH SCH (08:17)
[2020-03-31] MEDS: LEVEMIR (INSULIN DETEMIR) 1 UNITS/0.01ML SC SCH (08:43)
[2020-03-31] MEDS: DOXYCYCLINE HYCLATE 100MG TABLET PO SCH ×2 (08:44→20:39)
[2020-03-31] MEDS: FLUoxetine 10 MG CAP PO SCH (08:44)
[2020-03-31] MEDS: ENOXAPARIN 100MG/1ML SYRINGE (J1650 PER 10MG) SC SCH (08:44)
[2020-03-31] MEDS: ASPIRIN 81 MG ENTERIC TAB PO SCH (08:45)
[2020-03-31] MEDS: ISOSORBIDE MON. (IMDUR) 30 MG XR TAB PO SCH (08:45)
[2020-03-31] MEDS: OMEPRAZOLE 20 MG CAP PO SCH ×2 (08:45→20:39)
[2020-03-31] MEDS: RANOLAZINE 500 MG ER TAB PO SCH ×2 (08:45→20:39)
[2020-03-31] MEDS: MAGNESIUM OXIDE 400 MG TAB (MAG-OX) PO SCH (08:46)
[2020-03-31] MEDS: TORSEMIDE 20 MG TAB PO SCH ×2 (08:46→17:51)
[2020-03-31] MEDS ORDERED: POTASSIUM CHLORIDE 10 MEQ SR TABLET PO ONE (11:45)
--- NOTE | 2020-03-31 11:47 | IPNPDOC ---
Date Seen The patient was seen on 03/31/20. Progress Note Subjective: patient was seen and examined at the bedside chart it's been reviewed. He continues to have significant hypoxia requiring Vapotherm. He denies any chest pain, pressure, tightness, lightheadedness, dizziness, fever or chills. No issues per nursing overnight Objective: Physical examination: Vital signs: See below. General: Awake, alert, oriented 3. Patient has mild conversational dyspnea by 5-7 words, mild use of respiratory accessory muscles, without tracheal deviation. Nasal flaring or cyanosis HEENT: Moist mucous membranes. Pupils equally round, reactive. Extraocular musc les are intact. No JVD, no thyromegaly, no cervical lymphadenopathy. No pharyngeal erythema. +carotid bruits Lungs: Diminished crackles bl bases CTA in bl upper lobes Heart: S1, S2, tachycardic, sinus Abdomen obese, soft, nontender, nondistended, positive bowel sounds. No hepatosplenomegaly. Extremities no cyanosis, clubbing or pitting edema Laboratory data, please see below Microbiology. Hemoccult stool 03/28/2020 negative Pleural fluid culture no growth aerobically, no growth anaerobically Pleural fluid acid-fast stain pending mycobacterial culture pending Imaging studies . Chest x-ray no pneumothorax, decrease and right pleural fluid. Heart appears upper limits of normal. Calcification of the thoracic aorta, mild bibasilar atelectasis/infiltrate. Degenerative changes of the spine Echocardiogram ejection fraction 65-70%, grade 1 diastolic dysfunction with mild to moderate tricuspid insufficiency, severe pulmonary hypertension Hospital medications doxycycline, Lovenox, Zofran, [place] nasal spray. Levemir insulin, torsemide, aspirin, Prozac, Flonase, isosorbide, magnesium oxide, Spiriva, lisinopril, insulin sliding scale, Ranexa, Crestor, Proventil, Advair, nitroglycerin, hypoglycemic protocol Assessment and plan 75-year-old male admitted on 03/22/2020 with complaints of altered mental status and chills with bilateral upper extremity, hand shaking lasting for about 30 minutes in the ER, patient was back to baseline and patient was admitted for evaluation of TIA. CT head was negative. Patient was continued on aspirin and statin. He developed severe hypotension with systolic pressure of 94/48, and found to have an infected left foot with purulent drainage treated with intravenous doxycycline. During this time he also developed hypoxia secondary to congestive heart failure requiring high flow oxygen and Vapotherm. Eventually. Echocardiogram shows ejection fraction of 65-70%, grade 1 diastolic dysfunction with mild to moderate tricuspid insufficiency, severe pulmonary hypertension. . He was found to have a loculated pleural effusion and underwent thoracentesis with repeat chest x-ray showing no pneumothorax and improvement in the pleural effusion. He continues to require Vapotherm with attempts to wean down his FiO2 as tolerated to keep saturations at 88-92% and continued on his home CPAP at 10 cm with oxygen bleed. Maintain saturations of 80-92%. Due to significant comorbid conditions and multiple medical problems. Patient is now DO NOT RESUSCITATE, DO NOT INTUBATE. Awaiting hospice consultation. He has not decided on comfort measures at this time but is eager to go home. He is currently being weaned off his Vapotherm. . Acute hypoxic respiratory failure secondary to fluid overload and CHF, in the setting of severe pulmonary hypertension Acute CHF exacerbation, diastolic dysfunction with preserved systolic function , Severe pulmonary hypertension , Mild to moderate tricuspid insufficiency Right internal carotid artery stenosis, severe/, total occlusion of the left internal carotid artery Sided loculated pleural effusion status post thoracentesis. 03/29/2020 Symptomatic anemia requiring one unit red blood cell transfusion on 03/27/2020 Orthostatic hypotension due to diuretics and pulmonary hypertension complicated by decompensated CHF , Obstructive sleep apnea on home CPAP Paroxysmal atrial fibrillation Peripheral vascular disease/coronary artery disease, status post coronary stents gastroesophageal reflux disease , Obesity, BMI of 37.8 . Hypokalemia Plan: Patient is currently being titrated off of Vapotherm. He's had no issues overnight. Denies any fever, chills, chest pain, pressure, tightness, lightheadedness, dizziness or palpitations, PND, orthopnea or worsening shortness of breath. Patient has been in negative balance from 03/26/2020 03/30/20 with creatinine remaining remaining stable at stage III. Patient is continued on insulin, well controlled at 125-170 fingersticks. He is currently on Ranexa and torsemide managed by his mail deliverer. We're awaiting hospice meeting and once the patient is weaned off Vapotherm. Patient may be discharged home. He remains DO NOT RESUSCITATE, DO NOT INTUBATE. Not quite ready for comfort measures only. Once off a Vapotherm. Patient may be transferred out of the intensive care unit. VS, I&O, 24H, Fishbone Vital Signs/I&O Vital Signs Date Time Temp Pulse Resp B/P (MAP) Pulse Ox O2 Delivery O2 Flow Rate FiO2 03/31/20 08:45 118/59 03/31/20 08:17 67 03/31/20 08:17 89 HVNI-Vapotherm 25.0 50 03/31/20 08:00 98.1 18 I&O- Last 24 Hours up to 6 AM 03/31/20 06:00 Intake Total 1020 ml Output Total 1400 ml Balance -380 ml Laboratory Data 24H LABS Laboratory Tests 2 03/30/20 14:10: Bedside Glucose (Misc Panel) 148H 03/30/20 17:44: Bedside Glucose (Misc Panel) 152H 03/30/20 21:03: Bedside Glucose (Misc Panel) 170H 03/31/20 04:18: Immature Granulocyte % (Auto) 0.7, Neutrophils (%) (Auto) 71.3H, Lymphocytes (%) (Auto) 15.3L, Monocytes (%) (Auto) 10.9H, Eosinophils (%) (Auto) 1.1, Basophils (%) (Auto) 0.7, Neutrophils # (Auto) 5.9, Lymphocytes # (Auto) 1.3L, Monocytes # (Auto) 0.9H, Eosinophils # (Auto) 0.1, Basophils # (Auto) 0.1, Nucleated Red Blood Cells % (auto) 0.0, Anion Gap 8, Glomerular Filtration Rate 44.0, Calcium Level 8.0L CBC/BMP Laboratory Tests 03/31/20 04:18 Microbiology Microbiology 03/29/20 Acid Fast Stain, Received Pending 03/29/20 Mycobacterial Culture, Received Pending 03/29/20 Gram Stain - Final, Complete 03/29/20 Anaerobic Culture - Final, Complete 03/29/20 Body Fluid Culture - Final, Complete 03/28/20 Stool Occult Blood (RAINA) - Final, Complete JOCELYNE OTTO MD Mar 31, 2020 09:57
[2020-03-31] MEDS ORDERED: TIOT18INH INH (12:38)
[2020-03-31] MEDS ORDERED: KLOR10TA76 PO (12:38)
[2020-03-31] MEDS ORDERED: TORS20TA2 PO (12:38)
[2020-03-31] MEDS ORDERED: DOXY100T PO (12:38)
[2020-03-31 14:47] VITALS: BP 117/60
[2020-03-31] MEDS: SODIUM CHLORIDE NASAL 0.65% SPRAY BTL (OCEAN) PRN (20:38)
[2020-03-31] MEDS: ROSUVASTATIN 10 MG TAB (CRESTOR) PO SCH (20:38)
[2020-03-31] MEDS: LISINOPRIL *2.5 MG* TAB PO SCH (21:00)
[2020-03-31] MEDS: METOPROLOL TART 25 MG TABLET PO SCH (21:00)
[2020-03-31 22:00] VITALS: BP 101/7
[2020-04-01 06:00] VITALS: BP 118/56
[2020-04-01 06:07] LABS: BASO # 0.1 10^3/uL (0.0-0.2); BASO % 0.8 % (0.0-1.0); EOS # 0.1 10^3/uL (0.0-0.5); HEMATOCRIT 27.7 % (42.0-52.0); HEMOGLOBIN 8.1 g/dl (13.5-17.5); LYMPH % 14.1 % (24.0-44.0); MEAN CORPUSCULAR HEMOGLOBIN 24.2 pg (27.0-33.0); MEAN CORPUSCULAR HGB CONC 29.2 g/dl (32.0-36.5); MEAN CORPUSCULAR VOLUME 82.7 fl (80.0-96.0); MONO # 0.8 10^3/uL (0.0-0.8); MONO % 10.7 % (0.0-5.0); NEUTROPHILS # 5.1 10^3/uL (1.5-8.5); NEUTROPHILS % 72.4 % (36.0-66.0); PLATELET COUNT, AUTOMATED 201 10^3/uL (150-450); RED BLOOD COUNT 3.35 10^6/uL (4.30-6.10); WHITE BLOOD COUNT 7.1 10^3/uL (4.0-10.0)
[2020-04-01 06:33] LABS: CALCIUM LEVEL 8.3 MG/DL (8.8-10.2); CREATININE FOR GFR 1.41 MG/DL (0.70-1.30); POTASSIUM SERUM 3.3 MEQ/L (3.5-5.1)
[2020-04-01] MEDS: TIOTROPIUM INHALER/CAPSULE (SPIRIVA) INH SCH (07:12)
[2020-04-01] MEDS: ADVAIR HFA 230/21MCG INHALER INH SCH (07:12)
[2020-04-01] MEDS: HumaLOG INSULIN (NovoLOG) PER UNIT SC SCH (07:30)
[2020-04-01] MEDS ORDERED: POTASSIUM CHLORIDE 10 MEQ SR TABLET PO SCH (09:00)
[2020-04-01] MEDS: FLUoxetine 10 MG CAP PO SCH (09:37)
[2020-04-01] MEDS: OMEPRAZOLE 20 MG CAP PO SCH (09:37)
[2020-04-01 09:38] VITALS: BP 116/58
[2020-04-01] MEDS: ASPIRIN 81 MG ENTERIC TAB PO SCH (09:38)
[2020-04-01] MEDS: ISOSORBIDE MON. (IMDUR) 30 MG XR TAB PO SCH (09:38)
[2020-04-01] MEDS: RANOLAZINE 500 MG ER TAB PO SCH (09:38)
[2020-04-01] MEDS: MAGNESIUM OXIDE 400 MG TAB (MAG-OX) PO SCH (09:38)
[2020-04-01] MEDS: TORSEMIDE 20 MG TAB PO SCH (09:39)
[2020-04-01] MEDS: DOXYCYCLINE HYCLATE 100MG TABLET PO SCH (09:39)
[2020-04-01] MEDS: LEVEMIR (INSULIN DETEMIR) 1 UNITS/0.01ML SC SCH (09:40)
[2020-04-01] MEDS: ENOXAPARIN 100MG/1ML SYRINGE (J1650 PER 10MG) SC SCH (09:40)
[2020-04-01] MEDS ORDERED: ATIV1TAB10 PO (09:57)
[2020-04-01] MEDS ORDERED: MORP20SO3 PO (09:57)
[2020-04-01] MEDS ORDERED: HYOS125TA PO (09:57)
--- NOTE | 2020-04-01 10:30 | DS.PDOC ---
Discharge Summary General Date of Admission Mar 22, 2020 at 19:32 Date of Discharge 04/01/20 Discharge Summary DISCHARGE DIAGNOSES: . Acute hypoxic respiratory failure secondary to fluid overload and CHF, in the setting of severe pulmonary hypertension Acute CHF exacerbation, diastolic dysfunction with preserved systolic function , Severe pulmonary hypertension , Mild to moderate tricuspid insufficiency Right internal carotid artery stenosis, severe/, total occlusion of the left internal carotid artery Sided loculated pleural effusion status post thoracentesis. 03/29/2020 Symptomatic anemia requiring one unit red blood cell transfusion on 03/27/2020 Orthostatic hypotension due to diuretics and pulmonary hypertension complicated by decompensated CHF , Obstructive sleep apnea on home CPAP Paroxysmal atrial fibrillation Peripheral vascular disease/coronary artery disease, status post coronary stents gastroesophageal reflux disease , Obesity, BMI of 37.8 . Hypokalemia DISCHARGE MEDICATIONS: SEE BELOW DISCHARGE INSTRUCTIONS: DNR/DNI/PROGRAMMING INSTRUCTOR: PULMONARY-DR CADE PROCEDURES: 03/29/20 THORACENTESIS HOSPITAL COURSE: 75-year-old male admitted on 03/22/2020 with complaints of altered mental status and chills with bilateral upper extremity, hand shaking lasting for about 30 minutes in the ER, patient was back to baseline and patient was admitted for evaluation of TIA. CT head was negative. Patient was continued on aspirin and statin. He developed severe hypotension with systolic pressure of 94/48, and found to have an infected left foot with purulent drainage treated with i ntravenous doxycycline. During this time he also developed hypoxia secondary to congestive heart failure requiring high flow oxygen and Vapotherm. Eventually. Echocardiogram shows ejection fraction of 65-70%, grade 1 diastolic dysfunction with mild to moderate tricuspid insufficiency, severe pulmonary hypertension. . He was found to have a loculated pleural effusion and underwent thoracentesis with repeat chest x-ray showing no pneumothorax and improvement in the pleural effusion. He continues to require Vapotherm with attempts to wean down his FiO2 as tolerated to keep saturations at 88-92% and continued on his home CPAP at 10 cm with oxygen bleed. Maintain saturations of 80-92%. Due to significant comorbid conditions and multiple medical problems. Patient is now DO NOT RESUSCITATE, DO NOT INTUBATE. Awaiting hospice consultation. He has not decided on comfort measures at this time but is eager to go home. He was weaned off vapotherm, and transferred to medical surgical floor with high flow oxygen at 8liters/min. He Denies any fever, chills, chest pain, pressure, tightness, lightheadedness, dizziness or palpitations, PND, orthopnea or worsening shortness of breath. Patient has been in negative balance from 03/26/2020 03/30/20 with creatinine remaining remaining stable at stage III. Patient is continued on insulin, well controlled at 125-170 fingersticks. He is currently on Ranexa and torsemide managed by his county assessor. Patient may be discharged home. He remains DO NOT RESUSCITATE, DO NOT INTUBATE. Not quite ready for comfort measures only. DISCHARGE PHYSICAL EXAMINATION: Vital signs: See below. General: Awake, alert, oriented 3. Patient has mild conversational dyspnea by 5-7 words, mild use of respiratory accessory muscles, without tracheal deviation. Nasal flaring or cyanosis HEENT: Moist mucous membranes. Pupils equally round, reactive. Extraocular muscles are intact. No JVD, no thyromegaly, no cervical lymphadenopathy. No pharyngeal erythema. +carotid bruits Lungs: Diminished crackles bl bases CTA in bl upper lobes Heart: S1, S2, tachycardic, sinus Abdomen obese, soft, nontender, nondistended, positive bowel sounds. No hepatosplenomegaly. Extremities no cyanosis, clubbing or pitting edema LABORATORY DATA: please see below MICROBIOLOGY: Hemoccult stool 03/28/2020 negative Pleural fluid culture no growth aerobically, no growth anaerobically Pleural fluid acid-fast stain pending mycobacterial culture pending IMAGING STUDIES. Chest x-ray no pneumothorax, decrease and right pleural fluid. Heart appears upper limits of normal. Calcification of the thoracic aorta, mild bibasilar atelectasis/infiltrate. Degenerative changes of the spine ECHOCARDIOGRAM: ejection fraction 65-70%, grade 1 diastolic dysfunction with mild to moderate tricuspid insufficiency, severe pulmonary hypertension TIME SPENT ON DISCHARGE: 30 MIN Vital Signs/I&Os Vital Signs Date Time Temp Pulse Resp B/P (MAP) Pulse Ox O2 Delivery O2 Flow Rate FiO2 04/01/20 09:38 116/58 04/01/20 06:00 98.4 74 22 90 High Flow Cannula 8.0 03/31/20 09:15 40 I&O- Last 24 Hours up to 6 AM 04/01/20 06:00 Intake Total 960 ml Output Total 2500 ml Balance -1540 ml Laboratory Data Labs 24H Laboratory Tests 2 03/31/20 12:02: Bedside Glucose (Misc Panel) 131H 03/31/20 17:46: Bedside Glucose (Misc Panel) 156H 03/31/20 20:29: Bedside Glucose (Misc Panel) 155H 04/01/20 05:44: Immature Granulocyte % (Auto) 1.0, Neutrophils (%) (Auto) 72.4H, Lymphocytes (%) (Auto) 14.1L, Monocytes (%) (Auto) 10.7H, Eosinophils (%) (Auto) 1.0, Basophils (%) (Auto) 0.8, Neutrophils # (Auto) 5.1, Lymphocytes # (Auto) 1.0L, Monocytes # (Auto) 0.8, Eosinophils # (Auto) 0.1, Basophils # (Auto) 0.1, Nucleated Red Blood Cells % (auto) 0.0, Anion Gap 9, Glomerular Filtration Rate 52.0, Calcium Level 8.3L CBC/BMP Laboratory Tests 04/01/20 05:44 FSBS Laboratory Tests Test 03/31/20 12:02 03/31/20 17:46 03/31/20 20:29 Range/Units Bedside Glucose (Misc Panel) 131 156 155 83-110 MG/DL Microbiology Microbiology 03/29/20 Acid Fast Stain, Received Pending 03/29/20 Mycobacterial Culture, Received Pending 03/29/20 Gram Stain - Final, Complete 03/29/20 Anaerobic Culture - Final, Complete 03/29/20 Body Fluid Culture - Final, Complete 03/28/20 Stool Occult Blood (RAINA) - Final, Complete Discharge Medications Scheduled Apixaban (Eliquis) 5 Mg Tablet, 5 MG PO BID, (Reported) Aspirin (Aspirin EC) 81 Mg Tablet.dr, 81 MG PO DAILY, (Reported) Doxycycline Hyclate (Doxycycline Hyclate) 100 Mg Tablet, 100 MG PO BID Fluoxetine Hcl (Fluoxetine HCl) 10 Mg Capsule, 30 MG PO DAILY, (Reported) Insulin Aspart (Novolog Flexpen) 100 Unit/Ml Inj, 1 DOSE SC ACHS, (Reported) PER SLIDING SCALE Insulin Glargine,Hum.rec.anlog ([place] Solostar) 300 Unit/Ml Inj, 30 UNIT SC DAILY, (Reported) Isosorbide Mononitrate (Isosorbide Mononitrate ER) 30 Mg Tab.er.24h, 30 MG PO DAILY, (Reported) Lisinopril (Lisinopril) 2.5 Mg Tab, 2.5 MG PO QHS, (Reported) Magnesium Oxide (Magnesium Oxide) 400 Mg Tab, 400 MG PO DAILY, (Reported) Metoprolol Tartrate (Metoprolol Tartrate) 25 Mg Tab, 12.5 MG PO QHS, (Reported) Omeprazole (Omeprazole) 20 Mg Tab, 20 MG PO BID, (Reported) Potassium Chloride (Klor-Con M10) 10 Meq Tab.er.prt, 40 MEQ PO DAILY Ranolazine (Ranexa) 1,000 Mg Tab.er.12h, 1,000 MG PO BID, (Reported) Rosuvastatin Calcium (Rosuvastatin Calcium) 40 Mg Tab, 40 MG PO QHS, (Reported) Salmeterol/Fluticasone (Advair 500-50 Diskus) 28 Puff/Inhaler Aerp, 1 PUFF INH BID, (Reported) Tiotropium [place] Monohydrate (Spiriva) 18 Mcg Cap.w.dev, 1 INHALATION INH DAILY@08 Torsemide (Torsemide) 20 Mg Tablet, 20 MG PO BID@09,17 Umeclidinium [place] (Incruse Ellipta) 62.5 Mcg/Inh Inh, 1 PUFF INH DAILY, (Reported) Scheduled PRN Acetaminophen (Mapap) 500 Mg Tablet, 1,000 MG PO Q6H PRN for PAIN, (Reported) Albuterol Sulf (Albuterol Sulfate) 2.5 Mg/3 Ml Vial.neb, 2.5 MG INH Q4HP PRN for SHORTNESS OF BREATH, (Reported) Albuterol Sulfate (Ventolin Hfa) 108 Mcg/Act Aer, 2 PUFF INH Q4H PRN for SHORTNESS OF BREATH, (Reported) Fluticasone Propionate (Fluticasone Propionate) 16 Gm [place].susp, 1 SPRAY NARES DAILY PRN for CONGESTION, (Reported) Hyoscyamine Sulfate (Hyoscyamine Sulfate) 0.125 Mg Tab.subl, 0.125 MG PO Q4HP PRN for TERMINAL SECRETIONS Use sublingually if unable to swallow Lorazepam (Ativan) 0.5 Mg Tablet, 0.5 MG PO Q4HP PRN for ANXIETY/AGITATION Use sublingually if unable to swallow Morphine Sulfate (Morphine Sulfate) 100 Mg/5 Ml Solution, 0.25-1 ML PO Q2H PRN for PAIN OR DYSPNEA Use sublingually if unable to swallow Nitroglycerin (Nitrostat) 0.4 Mg Subl, 0.4 MG SL NITRO PRN for CHEST PAIN, (Reported) Allergies Coded Allergies: Cephalosporins (Verified Allergy, Intermediate, RASH, 02/18/20) RASH PER Penicillins (Verified Allergy, Intermediate, RASH, 02/18/20) clavulanic acid (Verified Allergy, Intermediate, RASH, 02/18/20) levofloxacin (Verified Allergy, Intermediate, RASH, 02/18/20) JOCELYNE OTTO MD Apr 01, 2020 10:29
== END 2020-04-01 12:10 | disposition hospice, home (50) | DRG 67 ==
LOC: M ED 14:01 → M ED INP 19:32 → ENRESERV 21:17 → M MSPAV 23:14 → M ICU 03-26 09:02 → M MSPAV 03-31 14:25
PROVIDERS: ADMIT Internal Medicine; ATTEND General Practice
PROC: 30233N1 Transfusion of Nonautologous Red Blood Cells into Peripheral Vein, Percutaneous Approach (ICD-10-PCS; 2020-03-27)
PROC: 0W993ZZ Drainage of Right Pleural Cavity, Percutaneous Approach (ICD-10-PCS; principal; 2020-03-29 13:30)
DX: I65.23 Occlusion and stenosis of bilateral carotid arteries (principal); J96.21 Acute and chronic respiratory failure with hypoxia; I50.33 Acute on chronic diastolic (congestive) heart failure; J90 Pleural effusion, not elsewhere classified; J81.1 Chronic pulmonary edema; G47.33 Obstructive sleep apnea (adult) (pediatric); I11.0 Hypertensive heart disease with heart failure; I25.10 Atherosclerotic heart disease of native coronary artery without angina pectoris; E83.42 Hypomagnesemia; K21.9 Gastro-esophageal reflux disease without esophagitis; I48.0 Paroxysmal atrial fibrillation; Z66 Do not resuscitate; J44.9 Chronic obstructive pulmonary disease, unspecified; E11.51 Type 2 diabetes mellitus with diabetic peripheral angiopathy without gangrene; I27.20 Pulmonary hypertension, unspecified; I36.1 Nonrheumatic tricuspid (valve) insufficiency; F32.9 Major depressive disorder, single episode, unspecified; E66.01 Morbid (severe) obesity due to excess calories; Z95.820 Peripheral vascular angioplasty status with implants and grafts; Z90.49 Acquired absence of other specified parts of digestive tract; Z87.891 Personal history of nicotine dependence; Z95.5 Presence of coronary angioplasty implant and graft; Z79.01 Long term (current) use of anticoagulants; Z99.81 Dependence on supplemental oxygen; Z79.4 Long term (current) use of insulin; Z79.899 Other long term (current) drug therapy; Z88.0 Allergy status to penicillin; Z88.1 Allergy status to other antibiotic agents; Z88.8 Allergy status to other drugs, medicaments and biological substances; Z68.37 Body mass index [BMI] 37.0-37.9, adult; Z20.828 Contact with and (suspected) exposure to other viral communicable diseases

== ENCOUNTER → 2020-04-28 | Outpatient (REF) ==
[~2020-04-28] MED LIST changes: +ASPI81TA26 PO; +ATIV1TAB10 PO; +HYOS125TA PO; +ISOS30TA4 PO; +KLOR10TA76 PO; +MORP20SO3 PO; +TIOT18INH INH
[2020-04-28 14:15] LABS: CALCIUM LEVEL 8.3 MG/DL (8.8-10.2); CREATININE FOR GFR 1.32 MG/DL (0.70-1.30); GLOMERULAR FILTRATION RATE 56.1 (>42); MAGNESIUM LEVEL 2.2 MG/DL (1.8-2.4); POTASSIUM SERUM 4.4 MEQ/L (3.5-5.1)
== END ==
LOC: M LAB REF 12:47
PROVIDERS: ATTEND Internal Medicine Pulmonary Disease
DX: I50.33 Acute on chronic diastolic (congestive) heart failure (principal)